=== PATIENT | female | born 1945 | race Caucasian/White ===

== ENCOUNTER → 2017-10-30 | Outpatient (CLI) | payer OTHER ==
[~2017-10-30] MED LIST: ALBU1NEB10 INH; ALBUAER2 INH; AMLH550 PO; AMR2 PO; ARC10 PO; ASPEC81 PO; ATV/1 PO; BUPRTAB51 PO; CETI10TA84 PO; CHOL100010 PO; CLB/200 PO; CLTP PO; COQ10100 PO; CYM60 PO; EZET10TA38 PO; FLNIN NAE; FLV400 PO; FRRG PO; GLC500 PO; HYDR-5688 PO; LAMO100T PO; LEVO150T22 PO; LISI20TA3 PO; MEMA1CAP3 PO; MULT-506 PO; NXM/40 PO; OMEG10007 PO; OXYSR10 PO; RANI300T2 PO; SNG10 PO; SYMIN160 INH; VITA400C15 PO; XNX25
--- NOTE | 2017-10-31 15:08 | MAMMOGRAPHY REPORT ---
BILATERAL DIGITAL SCREENING MAMMOGRAM TOMOSYNTHESIS WITH CAD: 10/30/2017 CLINICAL HISTORY: Routine screening. Patient has no complaints. TECHNIQUE: Breast tomosynthesis in addition to standard 2D mammography was performed. Current study was also evaluated with a Computer Aided Detection (CAD) system. COMPARISON: Comparison is made to exams dated: 08/31/2016 mammogram, 08/26/2014 mammogram, 3 mammogram, 08/21/2012 mammogram, 08/16/2011 mammogram - , and 03/31/2009. BREAST COMPOSITION: The tissue of both breasts is almost entirely fatty. FINDINGS: There are diffuse bilateral benign coarse, rim and round microcalcifications. A circumscri bed subcentimeter focal asymmetry in the 5:00 left breast appears similar dating back to 2007, theref ore likely benign. No new suspicious mass, architectural distortion or cluster of suspicious microca lcifications is seen. IMPRESSION: ACR BI-RADS CATEGORY 1: NEGATIVE There is no mammographic evidence of malignancy. A 1 year screening mammogram is recommended. The pa tient will receive written notification of the results. Approximately 10% of breast cancers are not detected with mammography. A negative mammographic report should not delay biopsy if a clinically suggestive mass is present. Marsha Retana M.D. ay/:10/30/2017 16:54:51 Date Pitter: Joyce Willson, letter sent: Normal 1/2 BI-RADS Code: ACR BI-RADS Category 1: Negative
== END | disposition home or self-care (01) ==
LOC: C.MAMM 10:02
PROVIDERS: ATTEND Obstetrics & Gynecology
DX: Z12.31 Encounter for screening mammogram for malignant neoplasm of breast (principal)

== ENCOUNTER 2017-11-09 15:09 | Inpatient (IN) | payer OTHER ==
[~2017-11-09] VITALS: Ht 147.3 cm; Wt 91.4 kg
[2017-11-09] MEDS ORDERED: SODIUM CHLORIDE 0.9% 1000ML 1,000 ML IV STA (15:22)
[2017-11-09] MEDS ORDERED: SODIUM CHLORIDE 0.9% 250ML 250 ML IV STA (15:22)
--- NOTE | 2017-11-09 15:39 | EMERGENCY ROOM VISIT NOTE ---
History Report prepared by Wendi: Yo Holt Under the Supervision of: Dr. Nyasia Ochoa M.D. First contact with patient: 15:17 Chief Complaint: WEAKNESS Stated Complaint: PROFOUND WEAKNESS, CHEST HEAVINESS History of Present Illness The patient is a 72 year old female who presents to the Emergency Room with complaints of worsening global weakness and fatigue that she began to notice 11 days prior to this visit. The patient states that she has a history of dementia and is having difficulty putting her situation into words. She notes that she was in bed all week last week. She has also been experiencing "heaviness" in her chest, and discomfort down her right arm. The chest "heaviness" began yesterday. She denies any nausea or bloody stools. She does have anemia at baseline and has been having some diarrhea. 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 A total of 10 systems reviewed and were otherwise negative. Past Medical & Surgical Medical Problems: (1) Anxiety (2) Asthma (3) Chest pain (4) Depression (5) Diabetes mellitus, type II (6) DJD of shoulder (7) Dyslipidemia (8) Fibromyalgia (9) GERD (gastroesophageal reflux disease) (10) Hypertension (11) Hypotension (12) Hypothyroidism (13) Rotator cuff arthropathy (14) Sleep apnea (15) Vascular dementia Surgical Problems: (1) H/O section (2) H/O colonoscopy (3) H/O esophagogastroduodenoscopy (4) History of rectal surgery (5) Sp lumbar spinal decompression (6) Status post bilateral knee replacements (7) Status post cholecystectomy (8) Status post hysterectomy (9) Status post tonsillectomy Family History Diabetes mellitus FH: cancer Stroke Social History Smoking Status: Never Smoker Marital Status: Housing Status: lives with family Occupation Status: retired Current/Historical Medications Scheduled Amiloride/Hctz (Amiloride/Hydrochlorothia 5-50 mg), 1 TAB PO DAILY Aspirin (Aspirin Ec), 81 MG PO DAILY Budesonide/Formoterol Fumarate (Symbicort 160/4.5 Inhaler ), 2 PUFFS INH BID Bupropion HCl (Bupropion HCl), 100 MG PO Q12 Calcium Carbonate-Vitamin D W/ (Caltrate 600+D Plus), 1 TAB PO BID Celecoxib (Celecoxib), 200 MG PO DAILY Cholecalciferol (Vitamin D 1000 Unit), 1,000 INTER.UNIT PO DAILY Duloxetine HCl (Duloxetine HCl), 30 MG PO DAILY Duloxetine HCl (Duloxetine HCl), 60 MG PO DAILY Esomeprazole Magnesium (Esomeprazole Magnesium), 40 MG PO DAILY Ezetimibe/Simvastatin (Vytorin 10MG/20MG), 1 TAB PO DAILY Fluticasone Propionate (Nasal) (Flonase Allergy Relief), 2 SPRAYS YUDY DAILY Folic Acid (Folic Acid), 1 TAB PO DAILY Lamotrigine (Lamictal), 150 MG PO DAILY Levothyroxine Sodium (Levothyroxine Sodium), 125 MCG PO DAILY Lisinopril (Lisinopril), 20 MG PO DAILY Memantine Hcl (Namenda Xr), 14 MG PO DAILY Metformin Hcl (Glucophage), 1,000 MG PO DAILY Montelukast Sod (Montelukast Sodium), 10 MG PO DAILY Multivitamins/Minerals (Mvi With Minerals), 1 TAB PO DAILY Ranitidine Hcl (Zantac), 300 MG PO BID Vitamin E (Vitamin E 400 Iu), 400 INTER.UNIT PO DAILY Scheduled PRN Alprazolam (Xanax), 0.5-1 TAB PO DAILY PRN for Anxiety Oxycodone HCl (Oxycodone HCl), 5 MG PO Q6 PRN for Pain [Proair], 2 PUFFS INH Q4 PRN for SOB/Wheezing Allergies Coded Allergies: Codeine (Verified Allergy, Unknown, STOMACH UPSET, 05/26/16) Doxycycline (Verified Allergy, Unknown, GASTRITIS, 05/26/16) Macrolides (Verified Allergy, Unknown, STOMach upset-CAN TAKE Z PACK PER PT, 05/26/16) Miconazole (Verified Allergy, Unknown, SEVERE BURNING ITCHING, 05/26/16) Morphine (Verified Adverse Reaction, Unknown, ITCHING, 05/26/16) Physical Exam Vital Signs Date Time Temp Pulse Resp B/P (MAP) Pulse Ox O2 Delivery O2 Flow Rate FiO2 11/09/17 17:15 97 Room Air 11/09/17 16:49 93/53 11/09/17 16:15 95 11/09/17 15:37 Room Air 11/09/17 15:29 96 112/90 107 118/60 108 88/66 11/09/17 15:12 36.5 104 22 121/62 97 Room Air Physical Exam Vital signs reviewed. General: Somewhat ill appearing, in no significant distress. HEENT: No scleral icterus, PERRLA, neck supple. Atraumatic. Cardiovascular: Tachycardic rate with normal rhythm, no extra sounds. Pulmonary: Clear to auscultation bilaterally, normal work of breathing. Abdomen: Soft, nontender, nondistended, positive bowel sounds. Musculoskeletal: Atraumatic, no peripheral edema. Neurologic: Patient awake alert and oriented x 3, full strength in all 4 extremities. Cranial nerves 2 through 12 grossly intact. Skin: Warm, dry, no rash Rectal: Reveals Guaiac negative brown stool. Medical Decision & Procedures ER Provider Diagnostic Interpretation: Radiology results as stated below per my review and radiologist interpretation: SINGLE VIEW CHEST CLINICAL HISTORY: Atypical chest pain. Weakness. FINDINGS: An AP, portable, upright chest radiograph is compared to study dated 05/08/2016 The examination is degraded by portable technique and patient rotation. The cardiomediastinal silhouette is unremarkable. The lungs and pleural spaces are clear. No pneumothorax is seen. The skeletal structures are osteopenic. The bony thorax is grossly intact. A right shoulder arthroplasty is in place. Degenerative change is noted throughout the thoracic spine. IMPRESSION: No acute cardiopulmonary abnormality. Electronically signed by: James Staley M.D. 11/09/2017 3:53 PM Dictated Date/Time: 11/09/2017 3:52 PM Laboratory Results 11/09/17 15:33 Red Blood Count 4.53, Mean Corpuscular Volume 77.3, Mean Corpuscular Hemoglobin 24.1, Mean Corpuscular Hemoglobin Concent 31.1, Mean Platelet Volume 8.9, Neutrophils (%) (Auto) 64.9, Lymphocytes (%) (Auto) 22.7, Monocytes (%) (Auto) 10.8, Eosinophils (%) (Auto) 0.9, Basophils (%) (Auto) 0.3, Neutrophils # (Auto ) 5.90, Lymphocytes # (Auto) 2.06, Monocytes # (Auto) 0.98, Eosinophils # (Auto ) 0.08, Basophils # (Auto) 0.03 11/09/17 15:33 Test 11/09/17 15:33 11/09/17 15:37 11/09/17 15:40 11/09/17 16:55 White Blood Count 9.09 K/uL (4.8-10.8) Red Blood Count 4.53 M/uL (4.2-5.4) Hemoglobin 10.9 g/dL (12.0-16.0) Hematocrit 35.0 % (37-47) Mean Corpuscular Volume 77.3 fL (80-100) Mean Corpuscular Hemoglobin 24.1 pg (25-34) Mean Corpuscular Hemoglobin Concent 31.1 g/dl (32-36) Platelet Count 267 K/uL (130-400) Mean Platelet Volume 8.9 fL (7.4-10.4) Neutrophils (%) (Auto) 64.9 % Lymphocytes (%) (Auto) 22.7 % Monocytes (%) (Auto) 10.8 % Eosinophils (%) (Auto) 0.9 % Basophils (%) (Auto) 0.3 % Neutrophils # (Auto) 5.90 K/uL (1.4-6.5) Lymphocytes # (Auto) 2.06 K/uL (1.2-3.4) Monocytes # (Auto) 0.98 K/uL (0.11-0.59) Eosinophils # (Auto) 0.08 K/uL (0-0.5) Basophils # (Auto) 0.03 K/uL (0-0.2) RDW Standard Deviation 49.7 fL (36.4-46.3) RDW Coefficient of Variation 17.6 % (11.5-14.5) Immature Granulocyte % (Auto) 0.4 % Immature Granulocyte # (Auto) 0.04 K/uL (0.00-0.02) Microcytosis PRESENT Est Creatinine Clear Calc Drug Dose 46.9 ml/min Estimated GFR () 61.6 Estimated GFR (Non- 53.2 BUN/Creatinine Ratio 15.9 (10-20) Calcium Level 9.6 mg/dl (8.5-10.1) Magnesium Level 1.6 mg/dl (1.8-2.4) Total Bilirubin 0.4 mg/dl (0.2-1) Direct Bilirubin 0.1 mg/dl (0-0.2) Aspartate Amino Transf (AST/SGOT) 17 U/L (15-37) Alanine Aminotransferase (ALT/SGPT) 24 U/L (12-78) Alkaline Phosphatase 38 U/L (45-117) Total Creatine Kinase 83 U/L (26-192) Creatine Kinase MB 1.5 ng/ml (0.5-3.6) Creatine Kinase MB Ratio 1.8 (0-3.0) Total Protein 7.3 gm/dl (6.4-8.2) Albumin 3.9 gm/dl (3.4-5.0) Bedside Troponin I < 0.030 ng/ml (0-0.045) Bedside Hemoglobin 11.9 g/dl (12.0-16.0) Bedside Hematocrit 35 % (37-47) Bedside Sodium 135 mEq/L (135-144) Bedside Potassium 4.2 mEq/L (3.3-5.0) Bedside Chloride 95 mEq/L (101-112) Bedside Total CO2 24 mEq/l (24-31) Anion Gap 21.0 mmol/L (16-25) Bedside Blood Urea Nitrogen 17 mg/dl (7-18) Bedside Creatinine 1.1 mg/dl (0.6-1.3) Bedside Glucose (other) 93 mg/dl (70-99) Bedside Ionized Calcium ([place]) 1.26 mmol/l (1.12-1.32) Urine Color DK YELLOW Urine Appearance CLEAR (CLEAR) Urine pH 5.5 (4.5-7.5) Urine Specific [place] 1.029 (1.000-1.030) Urine Protein NEG (NEG) Urine Glucose (UA) NEG (NEG) Urine Ketones TRACE (NEG) Urine Occult Blood NEG (NEG) Urine Nitrite NEG (NEG) Urine Bilirubin NEG (NEG) Urine Urobilinogen NEG (NEG) Urine Leukocyte Esterase NEG (NEG) Test 11/09/17 17:11 Laboratory results per my review. Medications Administered Medications (Trade) Dose Ordered Sig/Tung Route Start Time Stop Time Status Last Admin Dose Admin Sodium Chloride 250 ml @ 999 mls/hr Q16M STAT IV 11/09/17 15:22 11/09/17 15:50 DC 11/09/17 15:36 999 MLS/HR Sodium Chloride 1,000 ml @ 125 mls/hr Q8H STAT IV 11/09/17 15:22 11/09/17 23:21 11/09/17 15:36 125 MLS/HR Sodium Chloride 500 ml @ 999 mls/hr Q31M STAT IV 11/09/17 15:49 11/09/17 16:19 DC 11/09/17 15:58 999 MLS/HR Sodium Chloride 500 ml @ 999 mls/hr Q31M STAT IV 11/09/17 16:45 11/09/17 17:15 DC 11/09/17 16:52 999 MLS/HR ECG Indication: weakness Rate (beats per minute): 95 Rhythm: normal sinus Findings: no acute ischemic change, no ectopy, other (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 ED Course 1520: Past medical records reviewed. The patient was evaluated in room B12B. A complete history and physical examination was performed. 1522: Ordered Sodium Chloride 1000 mL @ 125 mL/hr IV, Sodium Chloride 250 mL @ 999 mL/hr IV. 1549: Ordered Sodium Chloride 500 mL @ 999 mL/hr IV. 1642: I checked on the patient at this time. She remains orthostatic after 0.5 liters. I performed a rectal exam. See PE for findings. The patient wishes to stay as an inpatient. I will call the [facility] Hospitalist. 1645: Ordered Sodium Chloride 500 mL @ 999 mL/hr IV. 1701: I reviewed the patient's case with Monica Browning PA-C. She will evaluate the patient for further management. Medical Decision Differential diagnosis: Etiologies such as metabolic, infection, hypo/hyperglycemia, electrolyte abnormalities, cardiac sources, intracerebral event, toxicologic, neurologic, as well as others were entertained. This patient was evaluated and appeared to be in no significant distress. Physical examination reveals a pale appearance, tachycardia and orthostasis. IV access was obtained and the patient was hydrated with 500 mL of normal saline solution. EKG reveals no evidence of acute ischemia or ectopy. The patient was reevaluated after the 500 mL bolus and found to be persistently orthostatic. A rectal exam was performed and reveals guaiac negative brown stool. The patient does have a history of chronic anemia. UA was obtained and is negative for infection. With the patient's profound weakness, symptomatic orthostasis and chest heaviness, the patient will be evaluated by the hospitalist service for further management. Consults Time Called: 1557 Consulting Physician: Monica Browning PA-C Returned Call: [phone] I reviewed the patient's case with Monica Browning PA-C. She will evaluate the patient for further management. Impression Primary Impression: Orthostasis Scribe Attestation The scribe's documentation has been prepared under my direction and personally reviewed by me in its entirety. I confirm that the note above accurately reflects all work, treatment, procedures, and medical decision making performed by me. Departure Information Dispostion Being Evaluated By Hospitalist Referrals Papo Keyes M.D. (PCP) Patient Instructions My [facility]
[2017-11-09 15:44] LABS: HEMOGLOBIN 10.9 g/dL (12.0-16.0); MEAN CELL VOLUME 77.3 fL (80-100); MEAN CORPUSCULAR HEMOGLOBIN 24.1 pg (25-34); MEAN CORPUSCULAR HGB CONC 31.1 g/dl (32-36); MEAN PLATELET VOLUME 8.9 fL (7.4-10.4); PLATELET COUNT 267 K/uL (130-400); RED CELL DISTRIBUTION WIDTH CV 17.6 % (11.5-14.5); RED CELL DISTRIBUTION WIDTH SD 49.7 fL (36.4-46.3); WHITE BLOOD COUNT 9.09 K/uL (4.8-10.8)
[2017-11-09] MEDS ORDERED: SODIUM CHLORIDE 0.9% 500ML 500 ML IV STA ×2 (15:49→16:45)
[2017-11-09 15:53] LABS: ISTAT CREATININE 1.1 mg/dl (0.6-1.3); ISTAT IONIZED CALCIUM 1.26 mmol/l (1.12-1.32); ISTAT POTASSIUM 4.2 mEq/L (3.3-5.0)
--- NOTE | 2017-11-09 15:55 | DIAGNOSTIC IMAGING REPORT ---
SINGLE VIEW CHEST CLINICAL HISTORY: Atypical chest pain. Weakness. FINDINGS: An AP, portable, upright chest radiograph is compared to study dated 05/08/2016 The examination is degraded by portable technique and patient rotation. The cardiomediastinal silhouette is unremarkable. The lungs and pleural spaces are clear. No pneumothorax is seen. The skeletal structures are osteopenic. The bony thorax is grossly intact. A right shoulder arthroplasty is in place. Degenerative change is noted throughout the thoracic spine. IMPRESSION: No acute cardiopulmonary abnormality. Electronically signed by: James Staley M.D. 11/09/2017 3:53 PM Dictated Date/Time: 11/09/2017 3:52 PM
[2017-11-09 16:06] LABS: ALBUMIN 3.9 gm/dl (3.4-5.0); CALCIUM 9.6 mg/dl (8.5-10.1); CREATININE 1.06 mg/dl (0.60-1.20); POTASSIUM 4.1 mmol/L (3.5-5.1)
[2017-11-09 16:10] LABS: BASO % 0.3 %; BASO ABS # 0.03 K/uL (0-0.2); EOS % 0.9 %; EOS ABS # 0.08 K/uL (0-0.5); IG# 0.04 K/uL (0.00-0.02); LYMPH % 22.7 %; LYMPH ABS # 2.06 K/uL (1.2-3.4); MONO % 10.8 %; MONO ABS # 0.98 K/uL (0.11-0.59); NEUT % 64.9 %
[2017-11-09 16:12] LABS: CKMB 1.5 ng/ml (0.5-3.6); TOTAL PROTEIN 7.3 gm/dl (6.4-8.2)
[2017-11-09] MEDS ORDERED: LSN20 PO (16:19)
[2017-11-09] MEDS ORDERED: RANI300T PO (16:19)
[2017-11-09] MEDS ORDERED: PROAIR INH (16:19)
[2017-11-09] MEDS ORDERED: AMLH/550 PO (16:19)
[2017-11-09] MEDS ORDERED: CHOL100027 PO (16:19)
[2017-11-09] MEDS ORDERED: FOLI800T PO (16:19)
[2017-11-09] MEDS ORDERED: MEMA1CAP3 PO (16:19)
[2017-11-09] MEDS ORDERED: CYM60 PO (16:19)
[2017-11-09] MEDS ORDERED: CELE1CAP30 PO (16:19)
[2017-11-09] MEDS ORDERED: CALCCHW PO (16:19)
[2017-11-09] MEDS ORDERED: LEVO125T5 PO (16:19)
[2017-11-09] MEDS ORDERED: CYM30 PO (16:19)
[2017-11-09] MEDS ORDERED: EZET10TA38 PO (16:19)
[2017-11-09] MEDS ORDERED: LAMO150T PO (16:19)
[2017-11-09] MEDS ORDERED: FLUT0.15 NAE (16:19)
[2017-11-09] MEDS ORDERED: WLL100 PO (16:19)
[2017-11-09] MEDS ORDERED: ASPI81TA28 PO (16:19)
[2017-11-09] MEDS ORDERED: ALPR0.25 PO (16:19)
[2017-11-09] MEDS ORDERED: METF-384 PO (16:19)
[2017-11-09] MEDS ORDERED: ESOM1CAP34 PO (16:19)
[2017-11-09] MEDS ORDERED: VITA400C3 PO (16:19)
[2017-11-09] MEDS ORDERED: SYMIN160 INH (16:19)
[2017-11-09] MEDS ORDERED: SNG10 PO (16:19)
[2017-11-09] MEDS ORDERED: OXYC-609 PO (16:19)
[2017-11-09] MEDS ORDERED: MULT-513 PO (16:19)
[2017-11-09 17:15] VITALS: O2SAT 97; Ht 147.3 cm; Wt 91.4 kg
[2017-11-09] MEDS ORDERED: MAGNESIUM SULFATE 1GM / D5W 2 GM in PREMIXED IN D5W 100 ML IV STA (17:22)
[2017-11-09] MEDS ORDERED: MAGNESIUM HYDROXIDE SUSP 30 ML UDC PO PRN (17:30)
[2017-11-09] MEDS ORDERED: NITROGLYCERIN 0.4 MG SL PER TAB CHARGE SL PRN (17:30)
[2017-11-09] MEDS ORDERED: ONDANSETRON INJ 2 MG/ML 2 ML VIAL IV PRN (17:30)
[2017-11-09] MEDS ORDERED: POLYETHYLENE (MIRALAX) 17 GM PACK PO PRN (17:30)
[2017-11-09] MEDS ORDERED: ALUMINUM/MAGNESIUM/SIMETH (MAALOX MAX) 30 ML UDC PO PRN (17:30)
[2017-11-09] MEDS ORDERED: GLUCOSE 40% GEL 15 GM TUBE PO PRN ×2 (17:45→21:45)
[2017-11-09] MEDS ORDERED: DEXTROSE 50% 50 ML SYR IV PRN ×2 (17:45→21:45)
[2017-11-09] MEDS ORDERED: GLUCOSE 10 TABS/TUBE PO PRN ×2 (17:45→21:45)
[2017-11-09] MEDS ORDERED: ALPRAZOLAM 0.5 MG TAB PO PRN (17:45)
[2017-11-09] MEDS ORDERED: OXYCODONE HCL IR 5 MG TAB (IMMEDIATE RELEASE) PO PRN (17:45)
[2017-11-09] MEDS ORDERED: GLUCAGON FOR INJ 1 MG VIAL SQ PRN ×2 (17:45→21:45)
[2017-11-09] MEDS ORDERED: ALBUTEROL HFA 8 GM INHALER INH PRN (17:45)
[2017-11-09] MEDS ORDERED: MAGNESIUM SULFATE 1GM / D5W 1 GM BAG ONE (17:57)
[2017-11-09] MEDS ORDERED: CETI10TA84 PO (18:10)
[2017-11-09] MEDS ORDERED: DONE10TA12 PO (18:10)
--- NOTE | 2017-11-09 18:30 | DIAGNOSTIC IMAGING REPORT ---
HEAD CT NONCONTRAST CT DOSE: 537.48 mGy.cm HISTORY: Imbalance, weakness TECHNIQUE: Multiaxial CT images of the head were performed without the use of intravenous contrast. Automated exposure control was utilized for this study. A dose lowering technique was utilized adhering to the principles of ALARA. Comparison: Head CT 08/02/2014. Findings: The paranasal sinuses and mastoid air cells are clear. The calvarium and skull base are intact. There is no mass, hematoma, midline shift, acute infarct. White matter hypodensity is nonspecific but suggestive of microvascular ischemic change. The ventricles and sulci demonstrate mild age-related involutional changes. Impression: No acute intracranial abnormality. Atrophy and microvascular ischemic changes. Electronically signed by: Caden Lindsey M.D. 11/09/2017 6:29 PM Dictated Date/Time: 11/09/2017 6:22 PM
[2017-11-09 18:50] LABS: INFLUENZA B ANTIGEN Neg for Influ B (NEG)
[2017-11-09 18:57] VITALS: O2SAT 98
[2017-11-09] MEDS ORDERED: SODIUM CHLORIDE 0.9% 1000ML 1,000 ML IV SCH (20:00)
[2017-11-09] MEDS ORDERED: DONEPEZIL HCL 10 MG TAB PO SCH (21:00)
[2017-11-09] MEDS ORDERED: INSULIN ASPART 100 UNITS/ML 3 ML PEN SC SCH (21:00)
[2017-11-09] MEDS: BUDESONIDE/FORMOTEROL FUMARATE 160/4.5 60 PUFFS/INHALER INH SCH (21:00)
[2017-11-09] MEDS ORDERED: CETIRIZINE HCL 10 MG TAB PO SCH (21:00)
[2017-11-09] MEDS ORDERED: DULOXETINE (CYMBALTA) 30 MG CAP PO SCH (21:00)
[2017-11-09] MEDS: CALCIUM 600MG + VIT D 400 IU TAB PO SCH (21:01)
[2017-11-09] MEDS: RANITIDINE HCL 150 MG TAB PO SCH (21:01)
[2017-11-09] MEDS: ACETAMINOPHEN 325 MG TAB PO PRN (21:10)
--- NOTE | 2017-11-09 21:26 | History and Physical ---
History & Physical Date & Time of Service: Nov 09, 2017 at 18:00 Chief Complaint: Chest Pain, Hypotension Primary Care Physician: Papo Keyes M.D. History of Present Illness Source: patient, clinic records, hospital records This is a 72yo F with a PMH of DM II, HTN, HLD, multi-infarct dementia, anxiety , depression, hypothyroidism, asthma and other medical problems who presents with generalized weakness x 10 days. Last week, patient started to experience body aches, a headache and a low grade temperature. Denies having chills, sore throat, nasal congestion. [place] nauseous and was therefore eating and drinking significantly less than normal. Spent most of her time in bed. Yesterday, patient tried to do some cleaning and felt lightheaded and dizzy, with generalized weakness and feeling "wobbly" with ambulation. Also endorses some heaviness across her chest that went away once she rested. Denies any syncope, visual changes, confusion, SOB, vomiting, dysuria, diarrhea or LE swelling. Has been taking all medications regularly, including BP meds and diuretic. Does have anemia at baseline (hgb ~ 11). Has a history of multi-infarct dementia but states that mentation is at baseline currently. Patient was hypotensive with BP of 88/66 upon arrival. + orthostatics. Past Medical/Surgical History Medical Problems: (1) Anxiety Status: Chronic (2) Asthma Status: Chronic (3) Depression Status: Chronic (4) Diabetes mellitus, type II Status: Chronic (5) DJD of shoulder Status: Chronic (6) Dyslipidemia Status: Chronic (7) Fibromyalgia Status: Chronic (8) GERD (gastroesophageal reflux disease) Status: Chronic (9) Hypertension Status: Chronic (10) Hypothyroidism Status: Chronic (11) Lumbar stenosis with neurogenic claudication Status: Chronic (12) Rotator cuff arthropathy Status: Chronic (13) Sleep apnea Status: Chronic (14) Vascular dementia Status: Chronic Surgical Problems: (1) H/O section Status: Chronic (2) H/O colonoscopy Status: Chronic (3) H/O esophagogastroduodenoscopy Status: Chronic (4) History of rectal surgery Status: Chronic (5) Sp lumbar spinal decompression Status: Chronic (6) Status post bilateral knee replacements Status: Chronic (7) Status post cholecystectomy Status: Chronic (8) Status post hysterectomy Status: Chronic (9) Status post tonsillectomy Status: Chronic Family History Diabetes mellitus FH: cancer Stroke Social History Smoking Status: Never Smoker Marital Status: Housing status: lives with family Occupational Status: retired Immunizations History of Influenza Vaccine: Yes Influenza Vaccine Date: Aug 25, 2013 History of Tetanus Vaccine?: Yes Tetanus Immunization Date: Oct 25, 2000 History of Pneumococcal: Yes Pneumococcal Date: Sep 05, 2009 History of Hepatitis B Vaccine: Yes Hepatitis Immunization Date: Oct 25, 2005 Multi-Drug Resistant Organisms History of MDRO: No Allergies Coded Allergies: Codeine (Verified Allergy, Unknown, STOMACH UPSET, 05/26/16) Doxycycline (Verified Allergy, Unknown, GASTRITIS, 05/26/16) Macrolides (Verified Allergy, Unknown, STOMach upset-CAN TAKE Z PACK PER PT, 05/26/16) Miconazole (Verified Allergy, Unknown, SEVERE BURNING ITCHING, 05/26/16) Morphine (Verified Adverse Reaction, Unknown, ITCHING, 05/26/16) Home Medications Scheduled Amiloride/Hctz (Amiloride/Hydrochlorothia 5-50 mg), 1 TAB PO DAILY Aspirin (Aspirin Ec), 81 MG PO DAILY Budesonide/Formoterol Fumarate (Symbicort 160/4.5 Inhaler ), 2 PUFFS INH BID Bupropion HCl (Bupropion HCl), 100 MG PO Q12 Calcium Carbonate-Vitamin D W/ (Caltrate 600+D Plus), 1 TAB PO BID Celecoxib (Celecoxib), 200 MG PO DAILY Cholecalciferol (Vitamin D 1000 Unit), 1,000 INTER.UNIT PO DAILY Donepezil Hydrochloride (Aricept), 1 TAB PO HS Duloxetine HCl (Duloxetine HCl), 30 MG PO HS Duloxetine HCl (Duloxetine HCl), 60 MG PO DAILY Esomeprazole Magnesium (Esomeprazole Magnesium), 40 MG PO DAILY Ezetimibe/Simvastatin (Vytorin 10MG/20MG), 1 TAB PO DAILY Fluticasone Propionate (Nasal) (Flonase Allergy Relief), 2 SPRAYS YUDY DAILY Folic Acid (Folic Acid), 1 TAB PO DAILY Lamotrigine (Lamictal), 150 MG PO DAILY Levothyroxine Sodium (Synthroid), 100 MCG PO DAILYBB Lisinopril (Lisinopril), 20 MG PO DAILY Memantine Hcl (Namenda Xr), 14 MG PO DAILY Metformin Hcl (Glucophage), 1,000 MG PO BID Montelukast Sod (Montelukast Sodium), 10 MG PO DAILY Multivitamins/Minerals (Mvi With Minerals), 1 TAB PO DAILY Ranitidine Hcl (Zantac), 300 MG PO BID Vitamin E (Vitamin E 400 Iu), 400 INTER.UNIT PO DAILY Scheduled PRN Alprazolam (Xanax), 0.5-1 TAB PO DAILY PRN for Anxiety Oxycodone HCl (Oxycodone HCl), 5 MG PO Q6 PRN for Pain [Proair], 2 PUFFS INH Q4 PRN for SOB/Wheezing Review of Systems Ten systems reviewed and negative except as noted in the HPI. Physical Exam Vital Signs Date Time Temp Pulse Resp B/P (MAP) Pulse Ox O2 Delivery O2 Flow Rate FiO2 11/09/17 18:57 89 17 98 11/09/17 18:07 93 17 123/75 100 11/09/17 17:15 97 Room Air 11/09/17 16:49 93/53 11/09/17 16:15 95 11/09/17 15:37 Room Air 11/09/17 15:29 96 112/90 107 118/60 108 88/66 11/09/17 15:12 36.5 104 22 121/62 97 Room Air General Appearance: WD/WN, no apparent distress, + obese, + pertinent finding ( pale, resting comfortably) Head: normocephalic, atraumatic Eyes: normal inspection, PERRL, sclerae normal ENT: normal ENT inspection, hearing grossly normal, pharynx normal (dry mucous membranes) Neck: supple, thyroid normal, trachea midline Respiratory/Chest: chest non-tender, lungs clear, normal breath sounds, no respiratory distress, no accessory muscle use Cardiovascular: regular rate, rhythm, no murmur, normal peripheral pulses Abdomen/GI: non tender, soft, no organomegaly Back: normal inspection Extremities/Musculoskelatal: normal inspection, no calf tenderness, no pedal edema Neurologic/Psych: teacher of the emotionally disturbed II-XII nml as tested, no motor/sensory deficits (FAROM, SAMIRA 5/5 in all 4 extremities. Cerebellar tests normal. Gait normal. ), alert, normal mood/affect, oriented x 3 Skin: normal color, warm/dry Diagnostics Laboratory Results Results Past 24 Hours Test 11/09/17 15:33 11/09/17 15:37 11/09/17 15:40 11/09/17 16:55 Range/Units White Blood Count 9.09 4.8-10.8 K/uL Red Blood Count 4.53 4.2-5.4 M/uL Hemoglobin 10.9 12.0-16.0 g/dL Hematocrit 35.0 37-47 % Mean Corpuscular Volume 77.3 80-100 fL Mean Corpuscular Hemoglobin 24.1 25-34 pg Mean Corpuscular Hemoglobin Concent 31.1 32-36 g/dl Platelet Count 267 130-400 K/uL Mean Platelet Volume 8.9 7.4-10.4 fL Neutrophils (%) (Auto) 64.9 % Lymphocytes (%) (Auto) 22.7 % Monocytes (%) (Auto) 10.8 % Eosinophils (%) (Auto) 0.9 % Basophils (%) (Auto) 0.3 % Neutrophils # (Auto) 5.90 1.4-6.5 K/uL Lymphocytes # (Auto) 2.06 1.2-3.4 K/uL Monocytes # (Auto) 0.98 0.11-0.59 K/uL Eosinophils # (Auto) 0.08 0-0.5 K/uL Basophils # (Auto) 0.03 0-0.2 K/uL RDW Standard Deviation 49.7 36.4-46.3 fL RDW Coefficient of Variation 17.6 11.5-14.5 % Immature Granulocyte % (Auto) 0.4 % Immature Granulocyte # (Auto) 0.04 0.00-0.02 K/uL Microcytosis PRESENT Prothrombin Time 10.4 9.0-12.0 SECONDS Prothromb Time International Ratio 1.0 0.9-1.1 Sodium Level 132 136-145 mmol/L Potassium Level 4.1 3.5-5.1 mmol/L Chloride Level 98 98-107 mmol/L Carbon Dioxide Level 28 21-32 mmol/L Anion Gap 6.0 21.0 16-25 mmol/L Blood Urea Nitrogen 17 7-18 mg/dl Creatinine 1.06 0.60-1.20 mg/dl Est Creatinine Clear Calc Drug Dose 46.9 ml/min Estimated GFR () 61.6 Estimated GFR (Non- 53.2 BUN/Creatinine Ratio 15.9 10-20 Random Glucose 88 70-99 mg/dl Calcium Level 9.6 8.5-10.1 mg/dl Magnesium Level 1.6 1.8-2.4 mg/dl Total Bilirubin 0.4 0.2-1 mg/dl Direct Bilirubin 0.1 0-0.2 mg/dl Aspartate Amino Transf (AST/SGOT) 17 15-37 U/L Alanine Aminotransferase (ALT/SGPT) 24 12-78 U/L Alkaline Phosphatase 38 45-117 U/L Total Creatine Kinase 83 26-192 U/L Creatine Kinase MB 1.5 0.5-3.6 ng/ml Creatine Kinase MB Ratio 1.8 0-3.0 Total Protein 7.3 6.4-8.2 gm/dl Albumin 3.9 3.4-5.0 gm/dl Thyroid Stimulating Hormone (TSH) 0.287 0.300-4.500 uIu/ml Bedside Troponin I < 0.030 0-0.045 ng/ml Bedside Hemoglobin 11.9 12.0-16.0 g/dl Bedside Hematocrit 35 37-47 % Bedside Sodium 135 135-144 mEq/L Bedside Potassium 4.2 3.3-5.0 mEq/L Bedside Chloride 95 101-112 mEq/L Bedside Total CO2 24 24-31 mEq/l Bedside Blood Urea Nitrogen 17 7-18 mg/dl Bedside Creatinine 1.1 0.6-1.3 mg/dl Bedside Glucose (other) 93 70-99 mg/dl Bedside Ionized Calcium (Kelsey) 1.26 1.12-1.32 mmol/l Urine Color DK YELLOW Urine Appearance CLEAR CLEAR Urine pH 5.5 4.5-7.5 Urine Specific [place] 1.029 1.000-1.030 Urine Protein NEG NEG Urine Glucose (UA) NEG NEG Urine Ketones TRACE NEG Urine Occult Blood NEG NEG Urine Nitrite NEG NEG Urine Bilirubin NEG NEG Urine Urobilinogen NEG NEG Urine Leukocyte Esterase NEG NEG Test 11/09/17 17:45 11/09/17 20:05 Range/Units Influenza Type A Antigen Neg for Influ A NEG Influenza Type B Antigen Neg for Influ B NEG Bedside Glucose 123 70-90 mg/dl Diagnostic Radiology CT head: Impression: No acute intracranial abnormality. Atrophy and microvascular ischemic changes. CXR normal EKG NSR. Remote anterior infarct. No change from prior EKG Impression Assessment and Plan This is a 72yo F with a PMH of DM II, HTN, HLD, multi-infarct dementia, anxiety , depression, hypothyroidism, asthma and other medical problems who presents with generalized weakness x 10 days. Orthostatic hypotension: -Lightheaded, dizzy, generalized weakness - + orthostasis on exam, dry mucous membranes -Poor PO intake over the past 10 days 2/2 viral illness -On multiple BP medications as well as a diuretic -Hold home dose amiloride-hctz, lisinopril -Make appropriate home med adjustments prior to discharge -IVF resuscitation -Orthostatics -PT/OT evals -Monitor Chest discomfort: -In setting of dehydration, exertion -Stable angina, resolved with rest -No longer having any chest discomfort -CXR, EKG and troponin without abnormalities -Trend troponin -Echo DM II: -Hgb a1c of 5.9 in Jun 2017 -Hold home regimen -SSI while in-patient -BG checks AC HS Multi-infarct dementia: -CT head with no acute intracranial abnormality. Atrophy and microvascular ischemic changes. -Seems to be at mentation baseline -Cont home dose Namenda, Aricept Depression/anxiety: -Stable -Cont cymbalta, wellbutrin, xanax PRN Hypothyroidism: -TSH low at 0.287 -Decreased levothyroxine dose from 125mcg to 100mcg -Free T4 ordered -Follow up for thyroid studies out-patient Asthma: -Stable -Cont home inhalers, Singulair HLD: -Cont Vytorin Chronic back pain, OA: -Cont home oxycodone IR per pain agreement -Celebrex held DVT Ppx: SQ heparin Code status: FULL PCP: Wali Dispo: Admitted to telemetry. Discharge planning ordered. Will need a home health nurse for home BP checks. Patient seen in collaboration with Dr. Wade. Please see addendum. ATTENDING ADDENDUM : pt seen and examined ,care co ordniated with Monica Kramer 72 yo F presents with Dizzy spell , orthostatic hypotension hx of poor Po intake , weakness for > 1 week has been taking her meds which includes 3 potent diuretics no report of fever or chills, pt is a poor historian due to early dementia does not recall all the events, remembers she vomited yesterday , and had episodes of diarrhea last week pt given IV fluid bolus in ER will continued IV hydration hold all diuretics no source of infection noted -Cxray no infiltrate , UA negative orthostatic vital check q shift PT/OT eval social service consulted , pt will benefit with home health nurse visit please refer to documentation of Monica Daigle for further discussion of other issues Anna Wade MD Advanced Directives Existing Living Will: Yes Existing Power of Automobile Assembler: Yes Resuscitation Status FULL RESUSCITATION VTE Prophylaxis VTE Risk Assessment Done? Y/N: Yes Risk Level: Moderate Given or contraindicated: Unfractionated heparin SQ Additional Copies To Papo Keyes M.D.
[2017-11-09] MEDS: HEPARIN SOD 5000 UNIT/0.5 ML CARP SQ SCH (21:36)
[2017-11-09 23:22] VITALS: BP 126/72; PULSE 86; TEMP 36.7; O2SAT 97
[2017-11-10 03:48] VITALS: BP 123/74; PULSE 78; TEMP 36.8; O2SAT 98
[2017-11-10] MEDS ORDERED: LEVOTHYROXINE 125 MCG TAB PO SCH (06:00)
[2017-11-10] MEDS ORDERED: LEVOTHYROXINE 100 MCG TAB PO SCH (06:00)
[2017-11-10 06:21] LABS: BLOOD UREA NITROGEN 12 mg/dl (7-18); CALCIUM 8.7 mg/dl (8.5-10.1); CARBON DIOXIDE 28 mmol/L (21-32); CREATININE 0.83 mg/dl (0.60-1.20); GLUCOSE 108 mg/dl (70-99); POTASSIUM 4.7 mmol/L (3.5-5.1); SODIUM 134 mmol/L (136-145)
[2017-11-10] MEDS: HEPARIN SOD 5000 UNIT/0.5 ML CARP SQ SCH (06:22)
[2017-11-10 06:25] LABS: CHOLESTEROL 120 mg/dl (0-200); LDL CHOLESTEROL CALCULATED 17 mg/dl
[2017-11-10 06:27] LABS: HEMOGLOBIN A1C 6.5 % (4.5-5.6)
[2017-11-10 07:42] VITALS: BP 134/65; PULSE 89; TEMP 36.6; O2SAT 96
[2017-11-10] MEDS ORDERED: PERFLUTREN LIPID MICROSPHERE (DEFINITY) IV ONE (07:54)
[2017-11-10] MEDS: ACETAMINOPHEN 325 MG TAB PO PRN (08:02)
[2017-11-10] MEDS: INSULIN ASPART 100 UNITS/ML 3 ML PEN SC SCH ×2 (08:15→12:25)
[2017-11-10] MEDS: BUDESONIDE/FORMOTEROL FUMARATE 160/4.5 60 PUFFS/INHALER INH SCH (08:30)
[2017-11-10] MEDS: CALCIUM 600MG + VIT D 400 IU TAB PO SCH (08:32)
[2017-11-10] MEDS: RANITIDINE HCL 150 MG TAB PO SCH (08:33)
[2017-11-10] MEDS ORDERED: PANTOprazole SOD 40 MG TAB PO SCH (09:00)
[2017-11-10] MEDS ORDERED: MONTELUKAST SOD 10 MG TAB PO SCH (09:00)
[2017-11-10] MEDS ORDERED: FoLIC ACID TAB 400 MCG TAB PO SCH (09:00)
[2017-11-10] MEDS ORDERED: DULOXETINE HCL 60 MG CAP PO SCH (09:00)
[2017-11-10] MEDS ORDERED: TOCOPHERYL, DL-ALPHA 400 INTER.UNIT CAP PO SCH (09:00)
[2017-11-10] MEDS ORDERED: DULOXETINE (CYMBALTA) 30 MG CAP PO SCH (09:00)
[2017-11-10] MEDS ORDERED: EZETIMIBE/SIMVASTATIN 10/20 TAB PO SCH (09:00)
[2017-11-10] MEDS ORDERED: FLUTICASONE PROPIONATE NA SPR 16 GM BTL NAE SCH (09:00)
[2017-11-10] MEDS ORDERED: CHOLECALCIFEROL 1000 INTER.UNIT TAB PO SCH (09:00)
[2017-11-10] MEDS ORDERED: ASPIRIN 81 MG ECTAB PO SCH ×2 (09:00)
[2017-11-10] MEDS ORDERED: CEROVITE ADV FORMULA TAB PO SCH (09:00)
--- NOTE | 2017-11-10 09:00 | ECHOCARDIOGRAM REPORT ---
*NOTICE TO RECEIVING [employer] This information is strictly Confidential and protected under [place] law. [place] law prohibits you from making any further disclosure of this information unless further disclosure is expressly permitted by the written consent of the person to whom it pertains or is authorized by law. A general authorization for the release of medical or other information is not sufficient for this purpose. Hospital accepts no responsibility if the information is made available to any other person, INCLUDING THE PATIENT. Interpretation Summary * Name: JESSICA VASQUEZ Study Date: 11/10/2017 07:18 AM BP: 123/74 mmHg * Patient Location: C.2T\S\S238\S\2 HR: 78 * : 1945 (M/d/yyy) Gender: Female Height: 59 in * Age: 72 yrs Ethnicity: [place] Weight: 196 lb * Ordering Physician: Anna Wade * Referring Physician: Self, Referred * Performed By: Thania Menchaca RDCS * * Reason For Study: Chest Pain * BSA: 1.8 m2 * The study was technically limited. * Grossly normal valvular structure and function. * -- Conclusions -- * The study was technically limited. * The left ventricle is normal in size. * Ejection Fraction = 60-65%. * The right ventricular systolic function is normal. * Grossly normal valvular structure and function. Procedure Details * A complete two-dimensional transthoracic echocardiogram was performed (2D, M-mode, Doppler and color flow Doppler). * The study was technically difficult. * The study was technically difficult, but visualization was adequate with the administration of Definity ultrasound contrast. * There were technical limitations due to patient'sbody habitus * A contrast injection of Definity was performed to improve assessment of LV function. * Contrast was injected into an intravenous site in the left arm. * One vial of Definity ultrasound contrast was diluted in normal saline to a total volume of 10 ml. A total of '2' ml of solution was administered during imaging. * Lot # [id number] of Definity utilized for procedure. * Expiration date . * The attending nurse who injected the contrast agent was Lian Velarde RN. Left Ventricle * The left ventricle is normal in size. * There is normal left ventricular wall thickness. * Ejection Fraction = 60-65%. * Left ventricular systolic function is normal. * The left ventricular wall motion is normal. Right Ventricle * The right ventricle is grossly normal size. * The right ventricular systolic function is normal. Atria * The left atrial size is normal. * Right atrial size is normal. * There is no evidence of atrial septal defect, but resolution does not allow assessment for a patent foramen ovale. Mitral Valve * The mitral valve is not well visualized. * Significant mitral regurgitation is absent. Tricuspid Valve * The tricuspid valve is not well visualized. * Significant tricuspid regurgitation is absent. Aortic Valve * The aortic valve is not well visualized. * Aortic valve sclerosis mild, without significant aortic valvular stenosis. * There is no significant aortic regurgitation. Pulmonic Valve * The pulmonic valve is not well visualized. * There is no significant pulmonary regurgitation. Pericardium/Pleural * There is no pericardial effusion. MMode 2D Measurements and Calculations IVSd 1.1 cm IVSs 1.3 cm LVIDd 4.2 cm LVIDs 2.5 cm LVPWd 1.1 cm LVPWs 1.0 cm IVS/LVPW 0.97 FS 39.9 % EDV(Teich) 79.8 ml ESV(Teich) 23.2 ml EF(Teich) 70.9 % EDV(cubed) 75.5 ml ESV(cubed) 16.4 ml EF(cubed) 78.3 % % IVS thick 23.2 % % LVPW thick -4.98 % LV mass(C)d 155.3 grams LV mass(C)dI 84.9 grams/m\S\2 LV mass(C)s 84.8 grams LV mass(C)sI 46.4 grams/m\S\2 SV(Teich) 56.5 ml SI(Teich) 30.9 ml/m\S\2 SV(cubed) 59.1 ml SI(cubed) 32.3 ml/m\S\2 Ao root diam 2.9 cm Ao root area 6.7 cm\S\2 ACS 1.8 cm LA dimension 3.3 cm LA/Ao 1.1 LVAd ap4 30.4 cm\S\2 LVLd ap4 8.6 cm EDV(MOD-sp4) 89.2 ml EDV(sp4-el) 91.1 ml LVAs ap4 16.3 cm\S\2 LVLs ap4 7.4 cm ESV(MOD-sp4) 32.3 ml ESV(sp4-el) 30.1 ml EF(MOD-sp4) 63.8 % EF(sp4-el) 66.9 % LVAd ap2 24.2 cm\S\2 LVLd ap2 8.4 cm EDV(MOD-sp2) 58.4 ml EDV(sp2-el) 58.8 ml LVAs ap2 11.8 cm\S\2 LVLs ap2 7.6 cm ESV(MOD-sp2) 15.9 ml ESV(sp2-el) 15.6 ml EF(MOD-sp2) 72.8 % EF(sp2-el) 73.4 % LVLd %diff -2.35 % EDV(MOD-bp) 73.7 ml LVLs %diff 1.7 % ESV(MOD-bp) 23.0 ml EF(MOD-bp) 68.7 % SV(MOD-sp4) 56.9 ml SI(MOD-sp4) 31.1 ml/m\S\2 SV(MOD-sp2) 42.5 ml SI(MOD-sp2) 23.2 ml/m\S\2 SV(MOD-bp) 50.6 ml SI(MOD-bp) 27.7 ml/m\S\2 SV(sp4-el) 60.9 ml SI(sp4-el) 33.3 ml/m\S\2 SV(sp2-el) 43.2 ml SI(sp2-el) 23.6 ml/m\S\2 Doppler Measurements and Calculations MV E max jalen 76.8 cm/sec MV A max jalen 98.4 cm/sec MV E/A 0.78 MV dec time 0.26 sec Ao V2 max 144.1 cm/sec Ao max PG 8.3 mmHg Ao max PG (full) 6.1 mmHg LV V1 max PG 2.2 mmHg LV V1 max 74.2 cm/sec PA V2 max 99.6 cm/sec PA max PG 4.0 mmHg TR max jalen 118.1 cm/sec
[2017-11-10 11:15] VITALS: BP 116/74; PULSE 87; TEMP 36.8; O2SAT 97
[2017-11-10] MEDS ORDERED: SYN100 PO (12:48)
--- NOTE | 2017-11-10 12:53 | Progress Note ---
Internal Med Progress Note Date of Service: Nov 10, 2017. Provider Documentation: SUBJECTIVE: Patient seen and examined at bedside. No orthostatic hypotension. Ambulatory OBJECTIVE: General Appearance: WD/WN, no apparent distress, + obese Head: normocephalic, atraumatic Eyes: normal inspection, sclerae normal ENT: normal ENT inspection Neck: supple, trachea midline Respiratory/Chest: chest non-tender, lungs clear, normal breath sounds, no respiratory distress, no accessory muscle use Cardiovascular: regular rate Abdomen/GI: non tender, soft, no organomegaly Back: normal inspection Extremities/Musculoskelatal: normal inspection, no calf tenderness, no pedal edema Neurologic/Psych: mover helper II-XII nml as tested, no motor/sensory deficits, alert, normal mood/affect, oriented x 3 Skin: normal color, warm/dry ASSESSMENT & PLAN: Imaging / labs Chest X ray : No acute cardiopulmonary abnormality Head CT: No acute intracranial abnormality. Atrophy and microvascular ischemic changes. Echocardiogram: The left ventricle is normal in size. There is normal left ventricular wall thickness. Ejection Fraction = 60-65%. Left ventricular systolic function is normal. The left ventricular wall motion is normal. serial troponins were negative No arrhythmia on telemetry monitoring Thyroid function tests abnormal: -TSH low at 0.287, but T4 is 9.8, have Decreased home dose levothyroxine dose from 125mcg to 100mcg. Patient should have thyroid studies repeated by primary care doctor for medication adjustment Summary: Patient had complaints of generalized weakness and chest discomfort. cardiac studies did not find evidence for heart attack. However. patient had fast heart rate (tachycardia) and appears to be on too high doses of levothyroxine. Also patient was to have orthostatic hypotension on admission to the hospital. This improved with IV fluids. Patient was seen by the discharging medical doctor and was able to ambulate without discomfort or weakness. Discharge home Patient should call [phone] to make follow up appointment to see [facility] Patient should review home medications with primary care doctor to minimize side effects of dehydration or sedation from medications used to treat depression/anxiety/pain and to review levothyroxine medication doses Vital Signs: Date Time Temp Pulse Resp B/P (MAP) Pulse Ox O2 Delivery O2 Flow Rate FiO2 11/10/17 12:00 Room Air 11/10/17 11:15 36.8 87 18 116/74 (88) 97 Room Air 11/10/17 08:00 Room Air 11/10/17 07:42 36.6 89 18 134/65 (88) 96 Room Air 11/10/17 04:30 Room Air 11/10/17 03:48 36.8 78 17 123/74 (90) 98 Room Air 11/09/17 23:45 Room Air 11/09/17 23:22 36.7 86 17 126/72 (90) 97 Room Air 11/09/17 18:57 89 17 98 11/09/17 18:07 93 17 123/75 100 11/09/17 17:15 97 Room Air 11/09/17 16:49 93/53 11/09/17 16:15 95 11/09/17 15:37 Room Air 11/09/17 15:29 96 112/90 107 118/60 108 88/66 11/09/17 15:12 36.5 104 22 121/62 97 Room Air Lab Results: Results Past 24 Hours Test 11/09/17 15:33 11/09/17 15:37 11/09/17 15:40 11/09/17 16:55 Range/Units White Blood Count 9.09 4.8-10.8 K/uL Red Blood Count 4.53 4.2-5.4 M/uL Hemoglobin 10.9 12.0-16.0 g/dL Hematocrit 35.0 37-47 % Mean Corpuscular Volume 77.3 80-100 fL Mean Corpuscular Hemoglobin 24.1 25-34 pg Mean Corpuscular Hemoglobin Concent 31.1 32-36 g/dl Platelet Count 267 130-400 K/uL Mean Platelet Volume 8.9 7.4-10.4 fL Neutrophils (%) (Auto) 64.9 % Lymphocytes (%) (Auto) 22.7 % Monocytes (%) (Auto) 10.8 % Eosinophils (%) (Auto) 0.9 % Basophils (%) (Auto) 0.3 % Neutrophils # (Auto) 5.90 1.4-6.5 K/uL Lymphocytes # (Auto) 2.06 1.2-3.4 K/uL Monocytes # (Auto) 0.98 0.11-0.59 K/uL Eosinophils # (Auto) 0.08 0-0.5 K/uL Basophils # (Auto) 0.03 0-0.2 K/uL RDW Standard Deviation 49.7 36.4-46.3 fL RDW Coefficient of Variation 17.6 11.5-14.5 % Immature Granulocyte % (Auto) 0.4 % Immature Granulocyte # (Auto) 0.04 0.00-0.02 K/uL Microcytosis PRESENT Prothrombin Time 10.4 9.0-12.0 SECONDS Prothromb Time International Ratio 1.0 0.9-1.1 Sodium Level 132 136-145 mmol/L Potassium Level 4.1 3.5-5.1 mmol/L Chloride Level 98 98-107 mmol/L Carbon Dioxide Level 28 21-32 mmol/L Anion Gap 6.0 21.0 16-25 mmol/L Blood Urea Nitrogen 17 7-18 mg/dl Creatinine 1.06 0.60-1.20 mg/dl Est Creatinine Clear Calc Drug Dose 46.9 ml/min Estimated GFR () 61.6 Estimated GFR (Non- 53.2 BUN/Creatinine Ratio 15.9 10-20 Random Glucose 88 70-99 mg/dl Calcium Level 9.6 8.5-10.1 mg/dl Magnesium Level 1.6 1.8-2.4 mg/dl Total Bilirubin 0.4 0.2-1 mg/dl Direct Bilirubin 0.1 0-0.2 mg/dl Aspartate Amino Transf (AST/SGOT) 17 15-37 U/L Alanine Aminotransferase (ALT/SGPT) 24 12-78 U/L Alkaline Phosphatase 38 45-117 U/L Total Creatine Kinase 83 26-192 U/L Creatine Kinase MB 1.5 0.5-3.6 ng/ml Creatine Kinase MB Ratio 1.8 0-3.0 Total Protein 7.3 6.4-8.2 gm/dl Albumin 3.9 3.4-5.0 gm/dl Thyroid Stimulating Hormone (TSH) 0.287 0.300-4.500 uIu/ml Bedside Troponin I < 0.030 0-0.045 ng/ml Bedside Hemoglobin 11.9 12.0-16.0 g/dl Bedside Hematocrit 35 37-47 % Bedside Sodium 135 135-144 mEq/L Bedside Potassium 4.2 3.3-5.0 mEq/L Bedside Chloride 95 101-112 mEq/L Bedside Total CO2 24 24-31 mEq/l Bedside Blood Urea Nitrogen 17 7-18 mg/dl Bedside Creatinine 1.1 0.6-1.3 mg/dl Bedside Glucose (other) 93 70-99 mg/dl Bedside Ionized Calcium (Kelsey) 1.26 1.12-1.32 mmol/l Urine Color DK YELLOW Urine Appearance CLEAR CLEAR Urine pH 5.5 4.5-7.5 Urine Specific [place] 1.029 1.000-1.030 Urine Protein NEG NEG Urine Glucose (UA) NEG NEG Urine Ketones TRACE NEG Urine Occult Blood NEG NEG Urine Nitrite NEG NEG Urine Bilirubin NEG NEG Urine Urobilinogen NEG NEG Urine Leukocyte Esterase NEG NEG Test 11/09/17 17:45 11/09/17 20:05 11/09/17 23:15 11/10/17 05:25 Range/Units Influenza Type A Antigen Neg for Influ A NEG Influenza Type B Antigen Neg for Influ B NEG Bedside Glucose 123 70-90 mg/dl Troponin I < 0.015 < 0.015 0-0.045 ng/ml Sodium Level 134 136-145 mmol/L Potassium Level 4.7 3.5-5.1 mmol/L Chloride Level 100 98-107 mmol/L Carbon Dioxide Level 28 21-32 mmol/L Anion Gap 6.0 3-11 mmol/L Blood Urea Nitrogen 12 7-18 mg/dl Creatinine 0.83 0.60-1.20 mg/dl Est Creatinine Clear Calc Drug Dose 59.9 ml/min Estimated GFR () 82.8 Estimated GFR (Non- 71.4 BUN/Creatinine Ratio 14.2 10-20 Random Glucose 108 70-99 mg/dl Estimated Average Glucose 140 mg/dl Hemoglobin A1c 6.5 4.5-5.6 % Calcium Level 8.7 8.5-10.1 mg/dl Magnesium Level 1.9 1.8-2.4 mg/dl Triglycerides Level 174 0-150 mg/dl Cholesterol Level 120 0-200 mg/dl HDL Cholesterol 68 mg/dl LDL Cholesterol, Calculated 17 mg/dl VLDL Cholesterol, Calculated 35 mg/dl Cholesterol/HDL Ratio 1.8 Free Triiodothyronine 3.08 2.30-4.20 pg/ml Test 11/10/17 06:46 11/10/17 07:28 11/10/17 11:31 Range/Units Bedside Glucose 124 70-90 mg/dl Thyroxine (T4) 9.8 4.5-10.9 mcg/dl Troponin I < 0.015 0-0.045 ng/ml
--- NOTE | 2017-11-10 13:07 | Discharge Instructions ---
Discharge Instructions Date of Service Nov 10, 2017. Admission Reason for Admission: Chest Pain, Hypotension Discharge Discharge Diagnosis / Problem: generalized weakness/orthostatic hypotension/ on levothyroxine, tachycardia Discharge Goals Goal(s): Improve function Activity Recommendations Activity Limitations: per Instructions/Follow-up section Lifting Limitations: until after follow-up appointment Exercise/Sports Limitations: until after follow-up appointment Shower/Bathe: no limitations . Instructions / Follow-Up Instructions / Follow-Up Imaging / labs Chest X ray : No acute cardiopulmonary abnormality Head CT: No acute intracranial abnormality. Atrophy and microvascular ischemic changes. Echocardiogram: The left ventricle is normal in size. There is normal left ventricular wall thickness. Ejection Fraction = 60-65%. Left ventricular systolic function is normal. The left ventricular wall motion is normal. serial troponins were negative No arrhythmia on telemetry monitoring Thyroid function tests abnormal: -TSH low at 0.287, but T4 is 9.8, have Decreased home dose levothyroxine dose from 125mcg to 100mcg. Patient should have thyroid studies repeated by primary care doctor for medication adjustment Summary: Patient had complaints of generalized weakness and chest discomfort. cardiac studies did not find evidence for heart attack. However. patient had fast heart rate (tachycardia) and appears to be on too high doses of levothyroxine. Also patient was to have orthostatic hypotension on admission to the hospital. This improved with IV fluids. Patient was seen by the discharging medical doctor and was able to ambulate without discomfort or weakness. Discharge home Patient should call [phone] to make follow [facility] appointment [facility] Patient should review home medications with primary care doctor to minimize side effects of dehydration or sedation from medications used to treat depression/anxiety/pain and to review levothyroxine medication doses Current Hospital Diet Patient's current hospital diet: AHA Diet (Heart Healthy), Diabetes Type 2 Diet Discharge Diet Recommended Diet: AHA Diet (Heart Healthy), Diabetes Type 2 Diet Pending Studies Studies pending at discharge: no Laboratory Results 11/09/17 15:33 Red Blood Count 4.53, Mean Corpuscular Volume 77.3, Mean Corpuscular Hemoglobin 24.1, Mean Corpuscular Hemoglobin Concent 31.1, Mean Platelet Volume 8.9, Neutrophils (%) (Auto) 64.9, Lymphocytes (%) (Auto) 22.7, Monocytes (%) (Auto) 10.8, Eosinophils (%) (Auto) 0.9, Basophils (%) (Auto) 0.3, Neutrophils # (Auto ) 5.90, Lymphocytes # (Auto) 2.06, Monocytes # (Auto) 0.98, Eosinophils # (Auto ) 0.08, Basophils # (Auto) 0.03 11/10/17 05:25 Test 11/09/17 15:33 11/09/17 15:37 11/09/17 15:40 11/09/17 16:55 White Blood Count 9.09 K/uL (4.8-10.8) Red Blood Count 4.53 M/uL (4.2-5.4) Hemoglobin 10.9 g/dL (12.0-16.0) Hematocrit 35.0 % (37-47) Mean Corpuscular Volume 77.3 fL (80-100) Mean Corpuscular Hemoglobin 24.1 pg (25-34) Mean Corpuscular Hemoglobin Concent 31.1 g/dl (32-36) Platelet Count 267 K/uL (130-400) Mean Platelet Volume 8.9 fL (7.4-10.4) Neutrophils (%) (Auto) 64.9 % Lymphocytes (%) (Auto) 22.7 % Monocytes (%) (Auto) 10.8 % Eosinophils (%) (Auto) 0.9 % Basophils (%) (Auto) 0.3 % Neutrophils # (Auto) 5.90 K/uL (1.4-6.5) Lymphocytes # (Auto) 2.06 K/uL (1.2-3.4) Monocytes # (Auto) 0.98 K/uL (0.11-0.59) Eosinophils # (Auto) 0.08 K/uL (0-0.5) Basophils # (Auto) 0.03 K/uL (0-0.2) RDW Standard Deviation 49.7 fL (36.4-46.3) RDW Coefficient of Variation 17.6 % (11.5-14.5) Immature Granulocyte % (Auto) 0.4 % Immature Granulocyte # (Auto) 0.04 K/uL (0.00-0.02) Microcytosis PRESENT Prothrombin Time 10.4 SECONDS (9.0-12.0) Prothromb Time International Ratio 1.0 (0.9-1.1) Total Bilirubin 0.4 mg/dl (0.2-1) Direct Bilirubin 0.1 mg/dl (0-0.2) Aspartate Amino Transf (AST/SGOT) 17 U/L (15-37) Alanine Aminotransferase (ALT/SGPT) 24 U/L (12-78) Alkaline Phosphatase 38 U/L (45-117) Total Creatine Kinase 83 U/L (26-192) Creatine Kinase MB 1.5 ng/ml (0.5-3.6) Creatine Kinase MB Ratio 1.8 (0-3.0) Total Protein 7.3 gm/dl (6.4-8.2) Albumin 3.9 gm/dl (3.4-5.0) Thyroid Stimulating Hormone (TSH) 0.287 uIu/ml (0.300-4.500) Bedside Troponin I < 0.030 ng/ml (0-0.045) Bedside Hemoglobin 11.9 g/dl (12.0-16.0) Bedside Hematocrit 35 % (37-47) Bedside Sodium 135 mEq/L (135-144) Bedside Potassium 4.2 mEq/L (3.3-5.0) Bedside Chloride 95 mEq/L (101-112) Bedside Total CO2 24 mEq/l (24-31) Bedside Blood Urea Nitrogen 17 mg/dl (7-18) Bedside Creatinine 1.1 mg/dl (0.6-1.3) Bedside Glucose (other) 93 mg/dl (70-99) Bedside Ionized Calcium ([place]) 1.26 mmol/l (1.12-1.32) Urine Color DK YELLOW Urine Appearance CLEAR (CLEAR) Urine pH 5.5 (4.5-7.5) Urine Specific [place] 1.029 (1.000-1.030) Urine Protein NEG (NEG) Urine Glucose (UA) NEG (NEG) Urine Ketones TRACE (NEG) Urine Occult Blood NEG (NEG) Urine Nitrite NEG (NEG) Urine Bilirubin NEG (NEG) Urine Urobilinogen NEG (NEG) Urine Leukocyte Esterase NEG (NEG) Test 11/09/17 17:45 11/10/17 05:25 11/10/17 06:46 11/10/17 07:28 Influenza Type A Antigen Neg for Influ A (NEG) Influenza Type B Antigen Neg for Influ B (NEG) Anion Gap 6.0 mmol/L (3-11) Est Creatinine Clear Calc Drug Dose 59.9 ml/min Estimated GFR () 82.8 Estimated GFR (Non- 71.4 BUN/Creatinine Ratio 14.2 (10-20) Estimated Average Glucose 140 mg/dl Hemoglobin A1c 6.5 % (4.5-5.6) Calcium Level 8.7 mg/dl (8.5-10.1) Magnesium Level 1.9 mg/dl (1.8-2.4) Triglycerides Level 174 mg/dl (0-150) Cholesterol Level 120 mg/dl (0-200) HDL Cholesterol 68 mg/dl LDL Cholesterol, Calculated 17 mg/dl VLDL Cholesterol, Calculated 35 mg/dl Cholesterol/HDL Ratio 1.8 Free Triiodothyronine 3.08 pg/ml (2.30-4.20) Bedside Glucose 124 mg/dl (70-90) Thyroxine (T4) 9.8 mcg/dl (4.5-10.9) Test 11/10/17 11:31 Troponin I < 0.015 ng/ml (0-0.045) Hemoglobin A1c Test 11/10/17 05:25 Range/Units Estimated Average Glucose 140 mg/dl Hemoglobin A1c 6.5 H 4.5-5.6 % Lipid Panel Test 11/10/17 05:25 Range/Units Triglycerides Level 174 H 0-150 mg/dl Cholesterol Level 120 0-200 mg/dl HDL Cholesterol 68 mg/dl Cholesterol/HDL Ratio 1.8 LDL Cholesterol, Calculated 17 mg/dl Medical Emergencies . Who to Call and When: Medical Emergencies: If at any time you feel your situation is an emergency, please call 911 immediately. . Non-Emergent Contact Non-Emergency issues call your: Primary Care Provider Call Non-Emergent contact if: you have any medication questions . . "Provider Documentation" section prepared by Francisco J Leal. . VTE Core Measure Inpt VTE Proph given/why not?: Treatment not indicated (patient ambulatory)
--- NOTE | 2017-11-10 13:17 | Discharge Summary ---
Discharge Summary Date of Service Nov 10, 2017. Discharge Summary Admission Date: Nov 09, 2017 at 17:24 Discharge Date: Nov 10, 2017 Discharge Disposition: Home Principal Diagnosis: Generalized weakness, Tachycardia, Orthostatic Hypotension possibly from dehydration, Diagnosis of Hypothyroidism but may be on too much Levothyroxine supplementation Medication Reconciliation New Medications: Levothyroxine Sodium (Synthroid) 100 Mcg Tab 100 MCG PO DAILYBB for 30 Days, #30 TAB Continued Medications: Alprazolam (Xanax) 0.25 Mg Tab 0.5-1 TAB PO DAILY PRN for Anxiety for 30 Days, TAB Amiloride/Hctz (Amiloride/Hydrochlorothia 5-50 mg) 1 Ea Tab 1 TAB PO DAILY Aspirin (Aspirin Ec) 81 Mg Tab 81 MG PO DAILY Budesonide/Formoterol Fumarate (Symbicort 160/4.5 Inhaler ) Aero 2 PUFFS INH BID, INHALER Bupropion HCl (Bupropion HCl) 100 Mg Tab 100 MG PO Q12 Calcium Carbonate-Vitamin D W/ (Caltrate 600+D Plus) 1 Chw Chw 1 TAB PO BID Celecoxib (Celecoxib) 200 Mg Cap 200 MG PO DAILY Cholecalciferol (Vitamin D 1000 Unit) 1,000 Unit Cap 1000 INTER.UNIT PO DAILY, CAP Donepezil Hydrochloride (Aricept) 10 Mg Tab 1 TAB PO HS for 30 Days, #30 TAB 5 Refills Duloxetine HCl (Duloxetine HCl) 30 Mg Cap 30 MG PO HS Duloxetine HCl (Duloxetine HCl) 60 Mg Cap 60 MG PO DAILY Esomeprazole Magnesium (Esomeprazole Magnesium) 40 Mg Cap 40 MG PO DAILY Ezetimibe/Simvastatin (Vytorin 10MG/20MG) Tab 1 TAB PO DAILY for 90 Days, #90 TAB 3 Refills Fluticasone Propionate (Nasal) (Flonase Allergy Relief) 50 Mcg/Act Spr 2 SPRAYS YUDY DAILY Folic Acid (Folic Acid) 800 Mcg Tab 1 TAB PO DAILY Lamotrigine (Lamictal) 150 Mg Tab 150 MG PO DAILY Lisinopril (Lisinopril) 20 Mg Tab 20 MG PO DAILY Memantine Hcl (Namenda Xr) 14 Mg Cap 14 MG PO DAILY Metformin Hcl (Glucophage) 1,000 Mg Tab 1000 MG PO BID Montelukast Sod (Montelukast Sodium) 10 Mg Tab 10 MG PO DAILY Multivitamins/Minerals (Mvi With Minerals) Tab 1 TAB PO DAILY, TAB Oxycodone HCl (Oxycodone HCl) 5 Mg Tab 5 MG PO Q6 PRN for Pain UP TO BID Ranitidine Hcl (Zantac) 300 Mg Tab 300 MG PO BID Vitamin E (Vitamin E 400 Iu) 400 Unit Cap 400 INTER.UNIT PO DAILY, CAP [Proair] () 2 PUFFS INH Q4 PRN for SOB/Wheezing Discontinued Medications: Cetirizine (Zyrtec) 10 Mg Tab 10 MG PO HS, TAB Levothyroxine Sodium (Levothyroxine Sodium) 125 Mcg Tab 125 MCG PO DAILY Admission Information HPI (per Admitting provider): This is a 72yo F with a PMH of DM II, HTN, HLD, multi-infarct dementia, anxiety , depression, hypothyroidism, asthma and other medical problems who presents with generalized weakness x 10 days. Last week, patient started to experience body aches, a headache and a low grade temperature. Denies having chills, sore throat, nasal congestion. [place] nauseous and was therefore eating and drinking significantly less than normal. Spent most of her time in bed. Yesterday, patient tried to do some cleaning and felt lightheaded and dizzy, with generalized weakness and feeling "wobbly" with ambulation. Also endorses some heaviness across her chest that went away once she rested. Denies any syncope, visual changes, confusion, SOB, vomiting, dysuria, diarrhea or LE swelling. Has been taking all medications regularly, including BP meds and diuretic. Does have anemia at baseline (hgb ~ 11). Has a history of multi-infarct dementia but states that mentation is at baseline currently. Patient was hypotensive with BP of 88/66 upon arrival. + orthostatics. Physical Exam (per Admitting): General Appearance: WD/WN, no apparent distress, + obese, + pertinent finding (pale, resting comfortably) Head: normocephalic, atraumatic Eyes: normal inspection, PERRL, sclerae normal ENT: normal ENT inspection, hearing grossly normal, pharynx normal (dry mucous membranes) Neck: supple, thyroid normal, trachea midline Respiratory/Chest: chest non-tender, lungs clear, normal breath sounds, no respiratory distress, no accessory muscle use Cardiovascular: regular rate, rhythm, no murmur, normal peripheral pulses Abdomen/GI: non tender, soft, no organomegaly Back: normal inspection Extremities/Musculoskelatal: normal inspection, no calf tenderness, no pedal edema Neurologic/Psych: 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 Cerebellar tests normal. Gait normal. ), alert, normal mood/affect, oriented x 3 Skin: normal color, warm/dry Hospital Course Imaging / labs Chest X ray : No acute cardiopulmonary abnormality Head CT: No acute intracranial abnormality. Atrophy and microvascular ischemic changes. Echocardiogram: The left ventricle is normal in size. There is normal left ventricular wall thickness. Ejection Fraction = 60-65%. Left ventricular systolic function is normal. The left ventricular wall motion is normal. serial troponins were negative No arrhythmia on telemetry monitoring Thyroid function tests abnormal: -TSH low at 0.287, but T4 is 9.8, have Decreased home dose levothyroxine dose from 125mcg to 100mcg. Patient should have thyroid studies repeated by primary care doctor for medication adjustment Summary: Patient had complaints of generalized weakness and chest discomfort. cardiac studies did not find evidence for heart attack. However. patient had fast heart rate (tachycardia) and appears to be on too high doses of levothyroxine. Also patient was to have orthostatic hypotension on admission to the hospital. This improved with IV fluids. Patient was seen by the discharging medical doctor and was able to ambulate without discomfort or weakness. Discharge home Patient should call [phone] to make follow up appointment to see [facility] Papo Keyes MD Patient should review home medications with primary care doctor to minimize side effects of dehydration or sedation from medications used to treat depression/anxiety/pain and to review levothyroxine medication doses Total time spent on discharge = 60 minutes This includes examination of the patient, discharge planning, medication reconciliation, and communication with other providers. Discharge Instructions see above
[2017-11-10 13:24] VITALS: BP 116/74; PULSE 87; TEMP 36.8; O2SAT 97
== END 2017-11-10 13:50 | disposition home or self-care (01) | DRG 312 ==
LOC: C.EDB 15:10 → C.2T 17:24 → ENRESERV 17:41
PROVIDERS: ADMIT Hospitalist; ATTEND Hospitalist
DX: I95.1 Orthostatic hypotension (principal); E03.9 Hypothyroidism, unspecified; T38.1X1A Poisoning by thyroid hormones and substitutes, accidental (unintentional), initial encounter; I10 Essential (primary) hypertension; E11.9 Type 2 diabetes mellitus without complications; F01.50 Vascular dementia, unspecified severity, without behavioral disturbance, psychotic disturbance, mood disturbance, and anxiety; F32.9 Major depressive disorder, single episode, unspecified; F41.9 Anxiety disorder, unspecified; J45.909 Unspecified asthma, uncomplicated; E78.5 Hyperlipidemia, unspecified; M19.90 Unspecified osteoarthritis, unspecified site; G89.29 Other chronic pain; Z79.82 Long term (current) use of aspirin; Z79.84 Long term (current) use of oral hypoglycemic drugs; Z79.899 Other long term (current) drug therapy; Z82.3 Family history of stroke; Z83.3 Family history of diabetes mellitus

== ENCOUNTER → 2017-11-19 | Outpatient (CLI) | payer OTHER ==
[~2017-11-19] MED LIST changes: -ALBU1NEB10 INH; -ALBUAER2 INH; +ALPR0.25 PO; +AMLH/550 PO; -AMLH550 PO; -AMR2 PO; -ARC10 PO; -ASPEC81 PO; +ASPI81TA28 PO; -ATV/1 PO; -BUPRTAB51 PO; +CALCCHW PO; +CELE1CAP30 PO; -CETI10TA84 PO; -CHOL100010 PO; +CHOL100027 PO; -CLB/200 PO; -CLTP PO; -COQ10100 PO; +CYM30 PO; +DONE10TA12 PO; +ESOM1CAP34 PO; -FLNIN NAE; +FLUT0.15 NAE; -FLV400 PO; +FOLI800T PO; -FRRG PO; -GLC500 PO; -HYDR-5688 PO; -LAMO100T PO; +LAMO150T PO; -LEVO150T22 PO; -LISI20TA3 PO; +LSN20 PO; +METF-384 PO; -MULT-506 PO; +MULT-513 PO; -NXM/40 PO; -OMEG10007 PO; +OXYC-609 PO; -OXYSR10 PO; +PROAIR INH; +RANI300T PO; -RANI300T2 PO; +SYN100 PO; -VITA400C15 PO; +VITA400C3 PO; +WLL100 PO; -XNX25
--- NOTE | 2017-11-19 15:40 | DIAGNOSTIC IMAGING REPORT ---
LUMBAR SPINE W/O CONTRAST CLINICAL HISTORY: 72 year-old Female with LUMBAR SPINE PAIN. Acute lumbar spine pain with radicular symptoms of the bilateral lower extremities. COMPARISON: Spot fluoroscopic images of the lumbar spine 06/14/2015. TECHNIQUE: Multiplanar, multi sequence MRI of the lumbar spine was performed without intravenous contrast. FINDINGS: Postoperative changes compatible with laminectomy and posterior interbody constanza and screw fusion are again seen extending from L2-L5. Prior discectomy at L4-L5. There is 8 mm anterolisthesis L4 on L5 without associated bone marrow edema, likely chronic. There is 3 mm anterolisthesis L3 on L4. Alignment is otherwise within normal limits. Multilevel intervertebral disc space narrowing, most pronounced at L2-L3 where there is severe disease. Moderate intervertebral disc space narrowing at L3-L4. Multilevel endplate spurring, most pronounced at L2-L3. Multilevel facet arthrosis is also present, partially obscured secondary to metallic density artifact. Soft tissue edema is noted posteriorly adjacent to the surgical levels, only partially imaged on the sagittal STIR images, nonspecific and likely related to prior surgery. Conus medullaris terminates at T12-L1. Signal within the spinal cord appears to be within normal limits. Cauda equina are unremarkable. No acute intra-abdominal or intrapelvic abnormality identified. Probable hemangioma at T10 measures 1.6 cm. T12-L1: No central canal or neural foraminal stenosis. L1-L2: There is a large central disc extrusion which extends superiorly terminating at the mid-level of L1 overall measuring 1.6 x 0.7 x 1.7 cm in transverse, AP and craniocaudal dimensions respectively. This causes moderate central canal stenosis with AP dimension of the thecal sac measuring 7 mm. Additionally, there is severe right and moderate left foraminal narrowing. Moderate facet arthrosis. L2-L3: Broad-based posterior disc osteophyte complex flattens the ventral thecal sac. Central canal and left neuroforamen are patent. Moderate to severe right foraminal stenosis. L3-L4: Broad-based posterior disc osteophyte complex with facet arthrosis. Left foramen is patent. Moderate right foraminal narrowing. L4-L5: Central canal appears patent. Neuroforamen are partially obscured by artifact. No definite left foraminal stenosis. There appears to be mild to moderate right foraminal narrowing secondary to posterior annular disc bulge and facet arthrosis. L5-S1: Moderate bilateral facet arthrosis with mild posterior spondylitic spurring. Central canal and left foramen are patent. Mild right foraminal stenosis. IMPRESSION: 1. Large disc extrusion at L1-L2 causes moderate central canal, severe right and moderate left foraminal narrowing. 2. Postoperative changes from posterior decompression and interbody constanza and screw fusion at L2-L5. 8 mm anterolisthesis L4 on L5 and 3 mm anterolisthesis L3 on L4 appears chronic. 3. Additional discogenic degenerative changes as above. No high-grade central canal narrowing. The above report was generated using voice recognition software. It may contain grammatical, syntax or spelling errors. Dictated: 11/19/2017 2:41 PM Transcribed: 11/19/2017 3:39 PM [email or web address] Electronically signed by: Bruce Sierra M.D. 11/19/2017 4:10 PM Dictated Date/Time: 11/19/2017 2:41 PM
== END ==
LOC: C.MRI 13:49
PROVIDERS: ATTEND Physician Assistant
DX: M54.5 Low back pain (principal)

== ENCOUNTER → 2017-12-12 | Outpatient (CLI) | payer OTHER ==
--- NOTE | 2017-12-12 10:56 | DIAGNOSTIC IMAGING REPORT ---
THORACIC SPINE WITHOUT CLINICAL HISTORY: 72 years-old Female presenting with THORACIC SPINE PAIN, back pain with reticular with the into both arms, history of lumbar fusion and disc extrusion at L1-2. TECHNIQUE: Multisequence, multiplanar MR imaging of the thoracic spine was performed without the use of intravenous contrast. IV contrast: None. COMPARISON: None. FINDINGS: Localizer images: Partially visualized posterior lumbar fusion hardware. Right shoulder arthroplasty may be present given extensive susceptibility artifact in this region. Normal thoracic kyphosis. No severe scoliosis. Vertebral bodies maintain normal height, alignment, and bone marrow signal intensity. Intervertebral discs preserved in the thoracic spine. No neural foraminal or spinal canal narrowing in the thoracic spine. Thoracic spinal cord normal in morphology and signal intensity, indicating in good position above the superior endplate of L1. Paraspinal soft tissues in the thoracic spine normal. Incidental note made of a simple appearing left renal cyst. Partially visualized lumbar spine demonstrates significant disc protrusion with cranial migration at L1-2. The disc fragment effaces the right paracentral anterior thecal sac at L1. This does not appear to impinge the cauda equina, however, the disc bulge component results in bilateral neural foraminal narrowing noted. Partially visualized posterior transpedicular screw and constanza fixation of L2 and inferiorly. I'm anatomy defects also noted in the lumbar spine. Nonspecific subcutaneous edema in the lumbar spine. IMPRESSION: 1. Normal MR examination of the thoracic spine. 2. Partially visualized disc extrusion at L1-2 with cranial migration. Electronically signed by: Papo Donis M.D. 12/12/2017 10:55 AM Dictated Date/Time: 12/12/2017 10:49 AM
== END | disposition home or self-care (01) ==
LOC: C.MRI 09:35
PROVIDERS: ATTEND Orthopaedic Surgery Orthopaedic Surgery of the Spine
DX: M54.6 Pain in thoracic spine (principal)

== ENCOUNTER → 2017-12-19 | Outpatient (CLI) | payer OTHER ==
[~2017-12-19] MED LIST changes: +AMOX875T PO; +CELE1CAP28 PO; +HYDR25TA4 PO; +LEVO100T7 PO; +LORA-741 PO; +TRAZ50TA35 PO
[2017-12-19 13:45] LABS: HEMOGLOBIN A1C 6.4 % (4.5-5.6)
== END | disposition home or self-care (01) ==
LOC: C.LAB 11:29
PROVIDERS: ATTEND Family Medicine
DX: E03.9 Hypothyroidism, unspecified (principal); Z79.899 Other long term (current) drug therapy; E11.9 Type 2 diabetes mellitus without complications

== ENCOUNTER 2018-01-08 05:57 | Inpatient (IN) | payer OTHER ==
[2017-12-19 11:41] VITALS: BMI 43.0
--- NOTE | 2017-12-19 12:33 | PAT Medication Instructions ---
Service Date Dec 19, 2017. Current Home Medication List Amoxicillin & Pot Clavulanate (Augmentin 875-125 mg), 1 TAB PO BID Aspirin (Aspirin Ec), 81 MG PO QAM Budesonide/Formoterol Fumarate (Symbicort 160/4.5 Inhaler ), 2 PUFFS INH BID Bupropion HCl (Bupropion HCl), 100 MG PO BID Calcium Carbonate-Vitamin D W/ (Caltrate 600+D Plus), 1 TAB PO BID Celecoxib (Celecoxib), 1 MG PO QAM Cholecalciferol (Vitamin D 1000 Unit), 1,000 INTER.UNIT PO QAM Donepezil Hydrochloride (Aricept), 1 TAB PO HS Duloxetine HCl (Duloxetine HCl), 30 MG PO HS Duloxetine HCl (Duloxetine HCl), 60 MG PO QAM Esomeprazole Magnesium (Esomeprazole Magnesium), 40 MG PO QAM Ezetimibe/Simvastatin (Vytorin 10MG/20MG), 1 TAB PO HS Fluticasone Propionate (Nasal) (Flonase Allergy Relief), 2 SPRAYS YUDY QAM Folic Acid (Folic Acid), 1 TAB PO QAM Hydrochlorothiazide (Hctz), 25 MG PO QAM Lamotrigine (Lamictal), 150 MG PO HS Levothyroxine Sodium (Levothyroxine Sodium), 1 TAB PO QAM Lisinopril (Lisinopril), 20 MG PO QAM Lorazepam (Ativan), 0.5 MG PO UD PRN for prn Memantine Hcl (Namenda Xr), 14 MG PO HS Metformin Hcl (Glucophage), 1,000 MG PO BID Montelukast Sod (Montelukast Sodium), 10 MG PO HS Multivitamins/Minerals (Mvi With Minerals), 1 TAB PO QAM Oxycodone HCl (Oxycodone HCl), 5 MG PO Q6 PRN for Pain Ranitidine Hcl (Zantac), 300 MG PO BID Trazodone Hcl (Trazodone), 50 MG PO UD PRN for prn Vitamin E (Vitamin E 400 Iu), 400 INTER.UNIT PO HS [Proair], 2 PUFFS INH Q4 PRN for SOB/Wheezing Medication Instructions For Your Scheduled Surgery -Continue as directed: Amoxicillin & Pot Clavulanate (Augmentin 875-125 mg), 1 TAB PO BID - Hold the following medications 2 weeks prior to surgery: Vitamin E (Vitamin E 400 Iu), 400 INTER.UNIT PO HS - Hold the following medications 7 days prior to surgery per your surgeon's instructions: Celecoxib (Celecoxib), 1 MG PO QAM - Hold the following medications 24 hours prior to surgery: Ezetimibe/Simvastatin (Vytorin 10MG/20MG), 1 TAB PO HS - Hold the following medications the morning of surgery: Calcium Carbonate-Vitamin D W/ (Caltrate 600+D Plus), 1 TAB PO BID Cholecalciferol (Vitamin D 1000 Unit), 1,000 INTER.UNIT PO QAM Folic Acid (Folic Acid), 1 TAB PO QAM Hydrochlorothiazide (Hctz), 25 MG PO QAM Lisinopril (Lisinopril), 20 MG PO QAM Metformin Hcl (Glucophage), 1,000 MG PO BID Multivitamins/Minerals (Mvi With Minerals), 1 TAB PO QAM - Take the following medications the morning of surgery with a sip of water: Aspirin (Aspirin Ec), 81 MG PO QAM Budesonide/Formoterol Fumarate (Symbicort 160/4.5 Inhaler ), 2 PUFFS INH BID Bupropion HCl (Bupropion HCl), 100 MG PO BID Duloxetine HCl (Duloxetine HCl), 60 MG PO QAM Esomeprazole Magnesium (Esomeprazole Magnesium), 40 MG PO QAM Fluticasone Propionate (Nasal) (Flonase Allergy Relief), 2 SPRAYS YUDY QAM Levothyroxine Sodium (Levothyroxine Sodium), 1 TAB PO QAM Lorazepam (Ativan), 0.5 MG PO UD PRN for prn (if needed) Oxycodone HCl (Oxycodone HCl), 5 MG PO Q6 PRN for Pain (if needed) Ranitidine Hcl (Zantac), 300 MG PO BID Trazodone Hcl (Trazodone), 50 MG PO UD PRN for prn (if needed) [Proair], 2 PUFFS INH Q4 PRN for SOB/Wheezing (if needed) - Take the following medications as scheduled the night before surgery: Budesonide/Formoterol Fumarate (Symbicort 160/4.5 Inhaler ), 2 PUFFS INH BID Bupropion HCl (Bupropion HCl), 100 MG PO BID Donepezil Hydrochloride (Aricept), 1 TAB PO HS Duloxetine HCl (Duloxetine HCl), 30 MG PO HS Lamotrigine (Lamictal), 150 MG PO HS Lorazepam (Ativan), 0.5 MG PO UD PRN for prn (if needed) Memantine Hcl (Namenda Xr), 14 MG PO HS Metformin Hcl (Glucophage), 1,000 MG PO BID Montelukast Sod (Montelukast Sodium), 10 MG PO HS Oxycodone HCl (Oxycodone HCl), 5 MG PO Q6 PRN for Pain (if needed) Ranitidine Hcl (Zantac), 300 MG PO BID Trazodone Hcl (Trazodone), 50 MG PO UD PRN for prn (if needed) [Proair], 2 PUFFS INH Q4 PRN for SOB/Wheezing (if needed) If you have any questions please call us at [phone] or [phone] or [phone]
[2017-12-19 13:17] LABS: BASO % 0.8 %; BASO ABS # 0.06 K/uL (0-0.2); EOS % 1.2 %; EOS ABS # 0.09 K/uL (0-0.5); HEMATOCRIT 33.5 % (37-47); HEMOGLOBIN 10.2 g/dL (12.0-16.0); IG# 0.04 K/uL (0.00-0.02); LYMPH % 23.7 %; LYMPH ABS # 1.85 K/uL (1.2-3.4); MEAN CELL VOLUME 76.3 fL (80-100); MEAN CORPUSCULAR HEMOGLOBIN 23.2 pg (25-34); MEAN CORPUSCULAR HGB CONC 30.4 g/dl (32-36); MEAN PLATELET VOLUME 9.5 fL (7.4-10.4); MONO % 10.6 %; MONO ABS # 0.83 K/uL (0.11-0.59); NEUT % 63.2 %; NEUT ABS # 4.95 K/uL (1.4-6.5); PLATELET COUNT 257 K/uL (130-400); RED CELL DISTRIBUTION WIDTH CV 17.8 % (11.5-14.5); RED CELL DISTRIBUTION WIDTH SD 49.2 fL (36.4-46.3); WHITE BLOOD COUNT 7.82 K/uL (4.8-10.8)
[2017-12-19 13:25] LABS: CALCIUM 9.7 mg/dl (8.5-10.1); CREATININE 0.87 mg/dl (0.60-1.20); POTASSIUM 4.1 mmol/L (3.5-5.1)
[2018-01-08] VITALS (27 sets, daily range): BP systolic 90–150; BP diastolic 57–89; PULSE 92–120; TEMP 36.5–37.1; O2SAT 92–100; Ht 144.8 cm; Wt 93.6 kg
[~2018-01-08] VITALS: Ht 144.8 cm; Wt 93.6 kg
[~2018-01-08 05:57] MED LIST changes: -ALPR0.25 PO; -AMLH/550 PO; -ASPI81TA28 PO; -CALCCHW PO; -CELE1CAP30 PO; -CHOL100027 PO; -CYM30 PO; -CYM60 PO; -HYDR25TA4 PO; -LAMO150T PO; -LEVO100T7 PO; -LSN20 PO; -MEMA1CAP3 PO; -METF-384 PO; -MULT-513 PO; -SNG10 PO; -SYN100 PO; -VITA400C3 PO; -WLL100 PO
[2018-01-08] MEDS ORDERED: LACTATED RINGER'S 1000ML 1,000 ML IV SCH (06:00)
[2018-01-08] MEDS ORDERED: MIDAZOLAM HCL 1 MG/ML 2ML VIAL ONE (06:40)
[2018-01-08] MEDS ORDERED: FENTANYL CITRATE INJ 50 MCG/1 ML 2 ML VIAL ONE ×5 (06:40→11:03)
[2018-01-08] MEDS ORDERED: ALBUMIN HUMAN 5% 12.5 GM/250 ML VIAL IV ONE ×2 (06:47→10:20)
[2018-01-08] MEDS ORDERED: BUPIVACAINE/EPINEPHRINE 0.5% MPF 1:200,000 30 ML VIAL ONE (06:59)
[2018-01-08] MEDS ORDERED: BACITRACIN 50000 UNIT VIAL ONE (07:00)
[2018-01-08] MEDS ORDERED: THROMBIN FOR SOLN 20000 UNIT KIT ONE (07:16)
[2018-01-08] MEDS ORDERED: HYDROmorphone INJ 1 MG/ML SYR IV PRN ×2 (07:30→14:30)
[2018-01-08] MEDS ORDERED: ONDANSETRON INJ 2 MG/ML 2 ML VIAL IV PRN ×2 (07:30→11:15)
[2018-01-08] MEDS ORDERED: FENTANYL CITRATE INJ 50 MCG/1 ML 2 ML VIAL IV PRN (07:30)
[2018-01-08] MEDS ORDERED: ATROPINE SULFATE 0.1 MG/ML 5ML SYR IV PRN (07:30)
[2018-01-08] MEDS ORDERED: EpHEDrine SULFATE INJ 50 MG/ML AMP IV PRN (07:30)
--- NOTE | 2018-01-08 07:30 | History & Physical Bridge Note ---
H&P Re-Evaluation Bridge Note: I have examined the patient, reviewed the History & Physical and in the interval since the performance of the History & Physical I have noted the following changes of clinical significance: No changes noted
--- NOTE | 2018-01-08 07:31 | History and Physical ---
History & Physical Date Jan 08, 2018. Chief Complaint Back and leg pain History of Present Illness The patient is a 72 year old female with complaints of back and leg pain Past Medical/Surgical History Medical Problems: (1) Anxiety (2) Asthma (3) Depression (4) Diabetes mellitus, type II (5) DJD of shoulder (6) Dyslipidemia (7) Fibromyalgia (8) GERD (gastroesophageal reflux disease) (9) Hypertension (10) Hypothyroidism (11) Lumbar stenosis with neurogenic claudication (12) Rotator cuff arthropathy (13) Sleep apnea (14) Vascular dementia Surgical Problems: (1) H/O section (2) H/O colonoscopy (3) H/O esophagogastroduodenoscopy (4) History of rectal surgery (5) Sp lumbar spinal decompression (6) Status post bilateral knee replacements (7) Status post cholecystectomy (8) Status post hysterectomy (9) Status post tonsillectomy Allergies Coded Allergies: Doxycycline (Verified Allergy, Unknown, GASTRITIS, 12/19/17) Miconazole (Verified Allergy, Unknown, SEVERE BURNING ITCHING, 12/19/17) Codeine (Verified Adverse Reaction, Unknown, STOMACH UPSET, 01/08/18) Macrolides (Verified Adverse Reaction, Unknown, STOMach upset-CAN TAKE Z PACK PER PT, 01/07/18) Morphine (Verified Adverse Reaction, Unknown, ITCHING, 01/08/18) Home Medications Scheduled Aspirin (Aspirin Ec), 81 MG PO QAM Budesonide/Formoterol Fumarate (Symbicort 160/4.5 Inhaler ), 2 PUFFS INH BID Bupropion HCl (Bupropion HCl), 100 MG PO BID Calcium Carbonate-Vitamin D W/ (Caltrate 600+D Plus), 1 TAB PO BID Celecoxib (Celecoxib), 1 MG PO QAM Cholecalciferol (Vitamin D 1000 Unit), 1,000 INTER.UNIT PO QAM Donepezil Hydrochloride (Aricept), 1 TAB PO HS Duloxetine HCl (Duloxetine HCl), 30 MG PO HS Duloxetine HCl (Duloxetine HCl), 60 MG PO QAM Esomeprazole Magnesium (Esomeprazole Magnesium), 40 MG PO QAM Ezetimibe/Simvastatin (Vytorin 10MG/20MG), 1 TAB PO HS Fluticasone Propionate (Nasal) (Flonase Allergy Relief), 2 SPRAYS YUDY QAM Folic Acid (Folic Acid), 1 TAB PO QAM Hydrochlorothiazide (Hctz), 25 MG PO QAM Lamotrigine (Lamictal), 150 MG PO HS Levothyroxine Sodium (Levothyroxine Sodium), 1 TAB PO QAM Lisinopril (Lisinopril), 20 MG PO QAM Memantine Hcl (Namenda Xr), 14 MG PO HS Metformin Hcl (Glucophage), 1,000 MG PO BID Montelukast Sod (Montelukast Sodium), 10 MG PO HS Multivitamins/Minerals (Mvi With Minerals), 1 TAB PO QAM Ranitidine Hcl (Zantac), 300 MG PO BID Vitamin E (Vitamin E 400 Iu), 400 INTER.UNIT PO HS Scheduled PRN Lorazepam (Ativan), 0.5 MG PO UD PRN for prn Oxycodone HCl (Oxycodone HCl), 5 MG PO Q6 PRN for Pain Trazodone Hcl (Trazodone), 50 MG PO UD PRN for prn [Proair], 2 PUFFS INH Q4 PRN for SOB/Wheezing Diagnosis Lumbar spinal stenosis Plan of Treatment Removal of hardware L2 L1-L2 decompression T11 S1 fusion with bolts
[2018-01-08] MEDS: CEFAZOLIN 2000MG IV PUSH 15 ML IV SCH ×3 (07:42→15:54)
[2018-01-08] MEDS ORDERED: HYDROmorphone INJ 2 MG/ML SYR/VIAL ONE ×2 (08:11→11:03)
[2018-01-08] MEDS ORDERED: PHENYLEPHRINE 100MCG/ML 5ML SYR ONE ×2 (09:15→11:47)
[2018-01-08 09:42] LABS: HEMATOCRIT 30.1 % (37-47); HEMOGLOBIN 9.4 g/dL (12.0-16.0)
[2018-01-08] MEDS ORDERED: CALCIUM CHLORIDE 10% 10 ML SYR ONE (10:33)
[2018-01-08] MEDS ORDERED: FLOSEAL HEMOSTATIC MATRIX 10ML TOP ONE (10:49)
--- NOTE | 2018-01-08 11:05 | [facility] Operative Report ---
Operative Report Operative Date Jan 08, 2018. Pre-Operative Diagnosis Lumbar spinal stenosis Post-Operative Diagnosis Lumbar Spinal Stenosis Procedure(s) Performed 1. Removal of posterior segmental instrumentation L2 L5. #2 expiration of fusion L2-L5. #3 lumbar decompression medial facetectomies foraminotomies T12-L1 L1-L2. #4 posterior spinal fusion T11-S1. #5 bilateral SI joint fusions. #6 placement of posterior segmental instrumentation T11-S1 with bilateral iliac bolts. #7 interbody fusion L1 to #8 placement peek cage 9 x 22 mm at L1 to. #9 placement of locally harvested Ding's allograft in the posterior lateral gutters. #10 placement InFUSE collagen sponge, mass graft to posterior gutters and ostium bone graft in the interbody space. Surgeon Dr. Pantoja Financial Services Counselor Surgeon(s) Chelita Ayala PA-C Estimated Blood Loss 1900 cc Findings Severe spinal stenosis Specimens A: explanted hardware Anesthesia Type General Description of Procedure Patient was met with preoperatively case discussed all questions addressed. After informed consent obtained patient was taken to the operative suite underwent intubation and placed in a prone position on the Sylvain table on top of the Robbie frame. All bony prominences were well-padded eyes inspected to ensure no external pressure placed upon the. This point the thoracolumbar spine was prepped and draped in normal sterile fashion. Sharp dissection with the assistance of Bovie cautery was performed down to and exposing the lamina and transverse processes of T11 T12-L1 instrumentation at L2 L3-L4-L5 and the sacral ala and the bilateral SI joints. I then proceeded remove the hardware at L2-L5 bilaterally. Explored the fusion mass noted to be grossly intact. Then performed a complete laminectomy of L1-2 and T12-L1. Pedicle screws in place and T11 T12-L1 L2-L3-L4 L5-S1 levels bilaterally with the assistance of fluoroscopy as well as bilateral iliac bolts. I then performed through a transforaminal approach on the left complete discectomy of L1 to endplates created to subcortical bleeding bone and a 9 x 22 mm peek cage filled with ostium bone graft tapped into position. Appropriate size rods were then cut contoured and locked in final position bilaterally. Transverse processes of T11 -T12 L1-L2 L3-L4-L5 and sacral ala Wells the bilateral SI joints were brought out to subcortical bleeding bone. Infuse collagen sponge, mass graft was placed to bilateral SI joints as well as the posterior gutters. Cross-link was locked into position. A 15 round SHADIA drain inserted. Incision was then closed with 1 Vicryl in the fascia 2-0 Vicryl subcutaneous 3 4-0 Monocryl for final skin closure Steri-Strips sterile dressings placed. Patient waited to the PACU stable condition. Please note Chelita Marie was present throughout the entire procedure involved in patient positioning complex portions of the surgery and final skin closure. I attest to the content of the Intraoperative Record and any orders documented therein. Any exceptions are noted below.
[2018-01-08] MEDS ORDERED: CEFAZOLIN SOD 1 GM VIAL ONE (11:06)
[2018-01-08] MEDS ORDERED: SODIUM CHLORIDE 0.9% 1000ML 1,000 ML IV SCH (11:07)
[2018-01-08] MEDS ORDERED: SOD PHOSPHATE/SOD BIPHOSPHATE ENEMA 132 ML BTL PR PRN (11:15)
[2018-01-08] MEDS ORDERED: PROMETHAZINE HCL INJ 12.5 MG in SODIUM CHLORIDE 0.9% 50ML 50 ML IV PRN (11:15)
[2018-01-08] MEDS ORDERED: MAGNESIUM HYDROXIDE SUSP 30 ML UDC PO PRN (11:15)
[2018-01-08] MEDS ORDERED: BISACODYL 10 MG SUPP PR PRN (11:15)
[2018-01-08] MEDS ORDERED: DO NOT ADMINISTER PNEUMOCOCCAL VACCINE PRN (11:15)
[2018-01-08] MEDS ORDERED: LORAZEPAM 0.5 MG TAB PO PRN (11:15)
[2018-01-08] MEDS ORDERED: NALOXONE HCL 0.4 MG/1 ML VIAL/CARP IV PRN ×2 (11:15)
[2018-01-08] MEDS ORDERED: METOCLOPRAMIDE HCL INJ 5 MG/ML 2 ML VIAL IV PRN (11:15)
[2018-01-08] MEDS ORDERED: LORAZEPAM INJ 0.5 MG in SYRINGE 0.75 ML IV PRN (11:15)
[2018-01-08] MEDS ORDERED: HYDROmorphone HCL 0.5MG/ML 50 ML CASSETTE IV PRN (11:15)
[2018-01-08] MEDS ORDERED: DO NOT ADMINISTER FLU VACCINE PRN (11:15)
[2018-01-08] MEDS ORDERED: ACETAMINOPHEN IV 100 ML IV PRN (11:15)
[2018-01-08] MEDS ORDERED: hydrOXYzine HCL 25 MG TAB PO PRN (11:15)
[2018-01-08] MEDS ORDERED: ACETAMINOPHEN 500 MG TAB PO PRN (11:15)
[2018-01-08] MEDS ORDERED: FAMOTIDINE 20 MG TAB PO PRN (11:15)
--- NOTE | 2018-01-08 11:15 | DIAGNOSTIC IMAGING REPORT ---
INTRAOPERATIVE RADIOGRAPHS CLINICAL HISTORY: T11-S1 spinal fusion. Fluoroscopy time: 43 seconds. FINDINGS: 6 fluoroscopic views of the lumbar spine are presented. There has been laminectomy and posterior fusion from T11-S1. Discectomy change is noted at L1-L2 and L4-L5. Bilateral iliac bolts are in place. The orthopedic hardware appears intact. IMPRESSION: Intraoperative images from T11-S1 spinal fusion. Electronically signed by: James Staley M.D. 01/08/2018 11:13 AM Dictated Date/Time: 01/08/2018 11:12 AM
[2018-01-08] MEDS ORDERED: HYDROmorphone HCL 0.5MG/ML 50 ML CASSETTE ONE (11:40)
[2018-01-08] MEDS ORDERED: PROPOFOL IV EMULSION 10 MG/ML 20 ML VIAL IV ONE (11:47)
[2018-01-08] MEDS ORDERED: NEOSTIGMINE METHYLSULFATE 1 MG/ML 10ML VIAL ONE (11:47)
[2018-01-08] MEDS ORDERED: DEXAMETHASONE SOD INJ 4 MG/ML VIAL ONE (11:47)
[2018-01-08] MEDS ORDERED: ONDANSETRON INJ 2 MG/ML 2 ML VIAL ONE (11:47)
[2018-01-08] MEDS ORDERED: ROCURONIUM BROMIDE 10 MG/ML 5 ML VIAL IV ONE (11:47)
[2018-01-08] MEDS ORDERED: GLYCOPYRROLATE INJ 0.2 MG/ML VIAL ONE (11:47)
[2018-01-08] MEDS ORDERED: LIDOCAINE HCL 2% 2 ML VIAL (20MG/ML) ONE (11:47)
[2018-01-08 12:30] LABS: HEMATOCRIT 27.1 % (37-47); HEMOGLOBIN 8.9 g/dL (12.0-16.0)
--- NOTE | 2018-01-08 15:30 | Anesthesiology Progress Note ---
Anesthesia Post Op Note Date & Time Jan 08, 2018 at 15:27 Vital Signs Pain Intensity: 6.0 Vital Signs Past 12 Hours Date Time Temp Pulse Resp B/P (MAP) Pulse Ox O2 Delivery O2 Flow Rate FiO2 01/08/18 14:45 94 18 99/67 (78) 98 Nasal Cannula 2.0 01/08/18 14:15 100 Nasal Cannula 2.0 01/08/18 14:15 36.5 98 20 90/61 (71) 100 Nasal Cannula 2.0 01/08/18 14:00 101 14 104/62 100 Nasal Cannula 4 01/08/18 13:45 93 16 93/58 97 Nasal Cannula 4 01/08/18 13:30 93 16 102/56 100 Nasal Cannula 4 01/08/18 13:25 93 16 95/52 100 Nasal Cannula 4 01/08/18 13:10 93 16 101/58 99 Nasal Cannula 4 01/08/18 12:55 90 13 97/56 99 Nasal Cannula 4 01/08/18 12:45 36.2 91 13 82/55 99 Nasal Cannula 4 01/08/18 12:35 97 12 111/65 99 Nasal Cannula 4 01/08/18 12:25 92 12 110/59 100 Nasal Cannula 4 01/08/18 12:15 98 12 78/51 98 Nasal Cannula 4 01/08/18 12:05 103 12 86/56 100 Oxymask 10 01/08/18 11:55 100 14 85/61 100 Oxymask 10 01/08/18 11:45 104 16 85/63 100 Oxymask 10 01/08/18 11:38 36.2 92 16 97/49 100 Oxymask 10 01/08/18 06:19 94 Room Air 01/08/18 06:13 36.7 92 18 150/89 Notes Mental Status: alert / awake / arousable, participated in evaluation Pt Amnestic to Procedure: Yes Nausea / Vomiting: adequately controlled Pain: adequately controlled Airway Patency, RR, SpO2: stable & adequate BP & HR: stable & adequate Hydration State: stable & adequate Anesthetic Complications: no major complications apparent Anesthetic Complications: Patient had significant blood loss intraop requiring 1000ml of albumin, 2L in crystalloid, and 2 U PRBC. Patient was hypotensive in PACU, but mentating appropriately. Blood pressure appropriate and stable after additional crystalloid bollus. Hgb 8.9. Patient transferred to PCU for additional monitoring secondary to blood loss, hypotension, and intraoperative fluid requirements.
--- NOTE | 2018-01-08 15:42 | Medical Consult ---
Consultation Date of Consultation: Jan 08, 2018. Attending Physician: Hu Pantoja D.O. Reason for Consultation: medical management post op History of Present Illness Ms Ritter is s/p decompression and fusion today. She is very drowsy and is having trouble staying . EBL of 1900. She is very pale and complaining of severe GERD which she says is worse than she has ever had and also has some pressure. She denies sob, cp, palpitations, or lightheadedness. She is nauseas and had an emesis earlier. She is appropriate in her speech if a bit slow to speak. She has a facial droop but states this is baseline. History from previous records as patient is sleeping on and off. ROS Constitutional: no chills, aches, sweats or fever Respiratory: see HPI Cardiac: see HPI GI:see HPI : no dysuria or hesitancy Extremities: no joint pain or weakness Skin: no rash All other systems reviewed and negative Past Medical/Surgical History 1) Anxiety (2) Asthma (3) Depression (4) Diabetes mellitus, type II (5) DJD of shoulder (6) Dyslipidemia (7) Fibromyalgia (8) GERD (gastroesophageal reflux disease) (9) Hypertension (10) Hypothyroidism (11) Lumbar stenosis with neurogenic claudication (12) Rotator cuff arthropathy (13) Sleep apnea (14) Vascular dementia Surgical Problems: (1) H/O section (2) H/O colonoscopy (3) H/O esophagogastroduodenoscopy (4) History of rectal surgery (5) Sp lumbar spinal decompression (6) Status post bilateral knee replacements (7) Status post cholecystectomy (8) Status post hysterectomy (9) Status post tonsillectomy Family History Diabetes mellitus FH: cancer Stroke Per outpatient records, family history of breast, colon and ovarian cancers. Social History Smoking Status: Never Smoker Marital Status: Housing Status: lives with significant other Occupation Status: retired Allergies Coded Allergies: Doxycycline (Verified Allergy, Unknown, GASTRITIS, 12/19/17) Miconazole (Verified Allergy, Unknown, SEVERE BURNING ITCHING, 12/19/17) Codeine (Verified Adverse Reaction, Unknown, STOMACH UPSET, 01/08/18) Macrolides (Verified Adverse Reaction, Unknown, STOMach upset-CAN TAKE Z PACK PER PT, 01/07/18) Morphine (Verified Adverse Reaction, Unknown, ITCHING, 01/08/18) Home Medications Active Reported Trazodone (Trazodone HCl) 50 Mg Tab 50 Mg PO UD PRN Levothyroxine Sodium 100 Mcg Tab 1 Tab PO QAM 90 Days Hctz (Hydrochlorothiazide) 25 Mg Tab 25 Mg PO QAM Ativan (Lorazepam) 0.5 Mg Tab 0.5 Mg PO UD PRN Celecoxib 100 Mg Cap 1 Mg PO QAM Aricept (Donepezil Hydrochloride) 10 Mg Tab 1 Tab PO HS 30 Days Namenda Xr (Memantine Hcl) 14 Mg Cap 14 Mg PO HS Caltrate 600+D Plus (Calcium Carbonate-Vitamin D W/) 1 Chw Chw 1 Tab PO BID Mvi With Minerals (Multivitamins/Minerals) Tab 1 Tab PO QAM Lamictal (Lamotrigine) 150 Mg Tab 150 Mg PO HS Folic Acid 800 Mcg Tab 1 Tab PO QAM Vitamin D 1000 Unit (Cholecalciferol) 1,000 Unit Cap 1,000 Inter.unit PO QAM Vitamin E 400 Iu (Vitamin E) 400 Unit Cap 400 Inter.unit PO HS Aspirin Ec (Aspirin) 81 Mg Tab 81 Mg PO QAM Flonase Allergy Relief (Fluticasone Propionate (Nasal)) 50 Mcg/Act Spr 2 Sprays YUDY QAM Glucophage (Metformin Hcl) 1,000 Mg Tab 1,000 Mg PO BID Esomeprazole Magnesium 40 Mg Cap 40 Mg PO QAM [Proair] 2 Puffs INH Q4 PRN Duloxetine HCl 60 Mg Cap 60 Mg PO QAM Symbicort 160/4.5 Inhaler (Budesonide/Formoterol Fumarate) Aero 2 Puffs INH BID Lisinopril 20 Mg Tab 20 Mg PO QAM Vytorin 10MG/20MG (Ezetimibe/Simvastatin) Tab 1 Tab PO HS 90 Days Montelukast Sodium (Montelukast Sod) 10 Mg Tab 10 Mg PO HS Oxycodone HCl 5 Mg Tab 5 Mg PO Q6 PRN UP TO BID Zantac (Ranitidine Hcl) 300 Mg Tab 300 Mg PO BID Bupropion HCl 100 Mg Tab 100 Mg PO BID Duloxetine HCl 30 Mg Cap 30 Mg PO HS Current Inpatient Medications Current Inpatient Medications Medications (Trade) Dose Ordered Sig/Tung Route Start Time Stop Time Status Last Admin Dose Admin Cefazolin Sodium 15 ml @ 3.75 mls/ min PREOP IV 01/08/18 06:00 01/08/18 18:00 01/08/18 07:42 3.75 MLS/MIN Lactated Ringer's 1,000 ml @ 15 mls/hr Q24H IV 01/08/18 06:00 01/09/18 05:59 Promethazine HCl 12.5 mg/Sodium Chloride 50.5 ml @ 202 mls/hr Q6H PRN IV 01/08/18 11:15 02/07/18 11:14 Ondansetron HCl (Zofran Inj) 4 mg Q6H PRN IV 01/08/18 11:15 02/07/18 11:14 Metoclopramide HCl (Reglan Inj) 10 mg Q6H PRN IV 01/08/18 11:15 02/07/18 11:14 Lorazepam (Ativan Tab) 0.5 mg Q8H PRN PO 01/08/18 11:15 02/07/18 11:14 Lorazepam 0.5 mg/ Syringe 1 ml @ 1 mls/min Q8H PRN IV 01/08/18 11:15 02/07/18 11:14 Pneumococcal Polysaccharide Vaccine 1 ea PRN PRN N/A 01/08/18 11:15 02/07/18 11:14 Influenza Virus Vacc Triv Types A&B 1 ea PRN PRN N/A 01/08/18 11:15 02/07/18 11:14 Polyethylene (Miralax Powder Packet) 17 gm Q6 PO 01/10/18 06:00 02/09/18 05:59 Bisacodyl (Dulcolax Supp) 10 mg DAILY PRN [place] 01/08/18 11:15 02/07/18 11:14 Magnesium Hydroxide (Milk Of Magnesia Susp) 30 ml DAILY PRN PO 01/08/18 11:15 02/07/18 11:14 Hydromorphone HCl (Dilaudid Inj) 0.5 mg Q3H PRN IV 01/09/18 06:00 01/23/18 05:59 Oxycodone HCl (Roxicodone Immediate Rel Tab) 5-10mg prn moderate to sev... Q4H PRN PO 01/09/18 06:00 01/23/18 05:59 Cefazolin Sodium 2000 mg/Syringe 15 ml @ 3.75 mls/ min Q8H IV 01/08/18 16:00 01/09/18 00:03 Sodium Chloride 1,000 ml @ 150 mls/hr Q6H40M IV 01/08/18 14:30 02/07/18 14:29 Acetaminophen (Tylenol Tab) 1,000 mg Q8H PRN PO 01/08/18 11:15 02/07/18 11:14 Acetaminophen 100 ml @ 400 mls/hr Q8H PRN IV 01/08/18 11:15 02/07/18 11:14 Naloxone HCl (Narcan Inj) 0.1 mg Q5M PRN IV 01/08/18 11:15 02/07/18 11:14 Senna/Docusate Sodium (Senokot S Tab) 2 tab HS PO 01/08/18 21:00 02/07/18 20:59 Sodium Biphosphate/ Sodium Phosphate (Fleet Enema) 132 ml ONE PRN [place] 01/08/18 11:15 02/07/18 11:14 Hydroxyzine HCl (Vistaril Tab) 25 mg Q8H PRN PO 01/08/18 11:15 02/07/18 11:14 Al Hydroxide/Mg Hydroxide (Maalox Susp) 30 ml Q6H PRN PO 01/08/18 11:15 02/07/18 11:14 Famotidine (Pepcid Tab) 20 mg Q12 PRN PO 01/08/18 11:15 02/07/18 11:14 Diphenhydramine HCl (Benadryl Cap) 25 mg Q6H PRN PO 01/08/18 11:15 02/07/18 11:14 Miscellaneous Information (Discontinue COMPENSATION CONSULTING MANAGER) 1 ea ONE ONCE N/A 01/09/18 06:00 01/09/18 06:01 Naloxone HCl (Narcan Inj) 0.1 mg Q5M PRN IV 01/08/18 11:15 01/09/18 06:00 Hydromorphone HCl (Dilaudid Clamshell Operator) 25 mg PRN PRN IV 01/08/18 11:15 01/09/18 06:00 Sodium Chloride 1,000 ml @ 15 mls/hr Q24H IV 01/08/18 11:07 01/09/18 06:00 Aspirin (Ecotrin Tab) 81 mg QAM PO 01/09/18 09:00 02/08/18 08:59 Budesonide/ Formoterol Fumarate (Symbicort 160/ 4.5 Inh) 2 puffs BID INH 01/08/18 21:00 02/07/18 20:59 Bupropion HCl (Wellbutrin Tab) 100 mg BID PO 01/08/18 21:00 02/07/18 20:59 Donepezil HCl (Aricept Tab) 10 mg HS PO 01/08/18 21:00 02/07/18 20:59 Duloxetine HCl (Cymbalta Cap) 30 mg HS PO 01/08/18 21:00 02/07/18 20:59 Duloxetine HCl (Cymbalta Cap) 60 mg QAM PO 01/09/18 09:00 02/08/18 08:59 Ezetimibe/ Simvastatin (Vytorin 10/20 Tab) 1 tab HS PO 01/08/18 21:00 02/07/18 20:59 Fluticasone Propionate (Flonase Nasal [place]) 2 sprays QAM YUDY 01/09/18 09:00 02/08/18 08:59 Hydrochlorothiazide (Hydrochlorothiazide Tab) 25 mg QAM PO 01/09/18 09:00 02/08/18 08:59 Lamotrigine (Lamictal Tab) 150 mg HS PO 01/08/18 21:00 02/07/18 20:59 Levothyroxine Sodium (Synthroid Tab) 100 mcg DAILYBB PO 01/09/18 06:00 02/08/18 05:59 Lisinopril (Zestril Tab) 20 mg QAM PO 01/09/18 09:00 02/08/18 08:59 Miscellaneous Information (Order Awaiting Action) 1 ea QS N/A 01/08/18 16:00 02/07/18 15:59 Montelukast Sodium (Singulair Tab) 10 mg HS PO 01/08/18 21:00 02/07/18 20:59 Miscellaneous Information (Order Awaiting Action) 1 ea QS N/A 01/08/18 16:00 02/07/18 15:59 Pantoprazole Sodium (Protonix Tab) 40 mg QAM PO 01/09/18 09:00 02/08/18 08:59 Ranitidine HCl (zANTac TAB) 300 mg BID PO 01/08/18 21:00 02/07/18 20:59 Hydromorphone HCl (Dilaudid Inj) 1 mg Q3H PRN IV 01/08/18 14:30 01/22/18 14:29 Future hold Pantoprazole Sodium 40 mg/ Syringe 10 ml @ 5 mls/min NOW ONCE IV 01/08/18 15:30 01/08/18 15:31 UNV Physical Exam Date Time Temp Pulse Resp B/P (MAP) Pulse Ox O2 Delivery O2 Flow Rate FiO2 01/08/18 14:45 94 18 99/67 (78) 98 Nasal Cannula 2.0 01/08/18 14:15 100 Nasal Cannula 2.0 01/08/18 14:15 36.5 98 20 90/61 (71) 100 Nasal Cannula 2.0 01/08/18 14:00 101 14 104/62 100 Nasal Cannula 4 01/08/18 13:45 93 16 93/58 97 Nasal Cannula 4 01/08/18 13:30 93 16 102/56 100 Nasal Cannula 4 01/08/18 13:25 93 16 95/52 100 Nasal Cannula 4 01/08/18 13:10 93 16 101/58 99 Nasal Cannula 4 01/08/18 12:55 90 13 97/56 99 Nasal Cannula 4 01/08/18 12:45 36.2 91 13 82/55 99 Nasal Cannula 4 01/08/18 12:35 97 12 111/65 99 Nasal Cannula 4 01/08/18 12:25 92 12 110/59 100 Nasal Cannula 4 01/08/18 12:15 98 12 78/51 98 Nasal Cannula 4 01/08/18 12:05 103 12 86/56 100 Oxymask 10 01/08/18 11:55 100 14 85/61 100 Oxymask 10 01/08/18 11:45 104 16 85/63 100 Oxymask 10 01/08/18 11:38 36.2 92 16 97/49 100 Oxymask 10 01/08/18 06:19 94 Room Air 01/08/18 06:13 36.7 92 18 150/89 Laboratory Results Last 24 Hours Test 01/08/18 06:19 01/08/18 09:34 01/08/18 11:44 01/08/18 12:04 Bedside Glucose 171 mg/dl 196 mg/dl Hemoglobin 9.4 g/dL 8.9 g/dL Hematocrit 30.1 % 27.1 % Assessment & Plan Ms. Ritter is an acutely ill woman with large EBL of 1900 and chest pain here s/p decompression and fusion 01/08 Post op/ chest pain/ GERD - patient is on tele but requires increased supervision and possibly large transfusion - will consult tower switch operator and transfer to ICU - Per nursing, patient received 2 units in OR. Will give 2 units now and 2 units on hold and TXA per protocol - Protonix IV push, GI cocktail - EKG showed low voltage but no obvious sign of ischemic change - serial hgbs q4h, hgb stat and troponin - continue IVF - No cardiac history - 2013 dobutamine stress was normal - DVT proph, bowel regimen per surgical team DMII - patient takes metformin outpatient - will hold and put on ss - bsgs ac and hs GERD - protonix IV push Hypothyroidism - continue home levothyroxine Depression - continue Cymbalta Full code STOCKROOM ATTENDANT Physician Supervision Note: I interviewed and examined the patient. Discussed with Erin Levy STOCKROOM ATTENDANT and agree with findings and plan as documented in the note. Any exceptions or clarifications are listed here: None We are called acutely for medical consult the patient has acute blood loss anemia endorgan strain with chest pain reportedly the patient was 1900 mL of blood in the surgery. I personally phoned the surgeon, Dr. Pantoja, he confirmed to me that that was the amount of blood loss. Patient is markedly pale she is hypotensive she is complaining of chest pain In the room the blood pressure was roughly 90/50 the patient was mentating complaining of chest pains and is reminds her of her GERD but there is also a component of pressure there is a SHADIA drain draining mary red blood Assessment skin is a acute blood loss anemia possibly hemorrhagic shock. Ms Levy and I phoned the tower switch operator we transfer the patient to order additional 2 units of blood intensive care unit, Gan exam make acid and asked to have another unit of blood on hold volume resuscitated with crystalloid and informed the surgical attending the patient be moved to the intensive care unit. We held appropriate hypertensive meds placed on insulin sliding scale and initiate a Protonix bolus twice daily. I spoke personally to the intensive care unit physician who is at the bedside and transition her care acutely to his care with frequent vital signs troponin checks. We also interpret an EKG at the bedside which showed low voltage but no acute current of injury All total we spent an hour and 15 minutes critical care time at the bedside Documented By: Eder Castrejon Report
[2018-01-08 15:43] LABS: HEMATOCRIT 25.3 % (37-47); HEMOGLOBIN 8.5 g/dL (12.0-16.0)
[2018-01-08] MEDS ORDERED: GI COCKTAIL PO ONE (15:45)
[2018-01-08] MEDS: CEFAZOLIN IV 2,000 MG in SYRINGE 0 ML IV SCH (15:55)
[2018-01-08] MEDS: SODIUM CHLORIDE 0.9% 1000ML 1,000 ML IV SCH ×2 (15:55→21:26)
[2018-01-08] MEDS ORDERED: PANTOprazole INJ 40 MG in SYRINGE 0 ML IV ONE (16:00)
[2018-01-08] MEDS ORDERED: ALUMINUM/MAGNESIUM SUSP 18 ML, LIDOCAINE HCL 2% VISCOUS SOLN 6 ML, BARCODE IDENTIFIER 1 EA PO ONE ×2 (16:00)
[2018-01-08] MEDS ORDERED: DEXTROSE 50% 50 ML SYR IV PRN (16:15)
[2018-01-08] MEDS ORDERED: GLUCOSE 40% GEL 15 GM TUBE PO PRN (16:15)
[2018-01-08] MEDS ORDERED: GLUCOSE 10 TABS/TUBE PO PRN (16:15)
[2018-01-08] MEDS ORDERED: GLUCAGON FOR INJ 1 MG VIAL SQ PRN (16:15)
[2018-01-08 16:51] LABS: INR 1.1 (0.9-1.1); PTT PATIENT 22.8 SECONDS (21.0-31.0)
[2018-01-08 16:59] LABS: ALBUMIN 3.3 gm/dl (3.4-5.0); CALCIUM 8.5 mg/dl (8.5-10.1); CREATININE 0.87 mg/dl (0.60-1.20)
[2018-01-08] MEDS ORDERED: TRANEXAMIC ACID INJ 1,000 MG in SODIUM CHLORIDE 0.9% 100ML 100 ML IV SCH (17:00)
[2018-01-08 17:02] LABS: TOTAL PROTEIN 5.1 gm/dl (6.4-8.2)
--- NOTE | 2018-01-08 18:18 | Critical Care Consultation ---
Critical Care Consultation Date of Consultation: Jan 08, 2018. Attending Physician: Hu Pantoja D.O. Reason for Consultation: Significant blood loss with associated chest pain History of Present Illness Patient is a 72-year-old female with a history of chronic back pain history of prior spinal surgery who underwent a decompression and fusion today. In discussion with orthopedics the patient had considerable blood loss estimated blood loss of 1900. Postoperatively she was very pale and complaining of severe mid sternal chest discomfort similar to prior GERD however more severe in intensity which she has not experienced before. She denies any past medical history of cardiac disease nor stenting. She denies history of bleeding ulcers , she had a history of a blood transfusion with her prior back surgery. She denies any history of bleeding gums however she does admit to easy bruisability as well as heavy menses which prompted her to undergo a hysterectomy previously. I have been asked to evaluate for possible profound anemia and ongoing blood losses. Past Medical/Surgical History 1) Anxiety (2) Asthma (3) Depression (4) Diabetes mellitus, type II (5) DJD of shoulder (6) Dyslipidemia (7) Fibromyalgia (8) GERD (gastroesophageal reflux disease) (9) Hypertension (10) Hypothyroidism (11) Lumbar stenosis with neurogenic claudication (12) Rotator cuff arthropathy (13) Sleep apnea (14) Vascular dementia Surgical Problems: (1) H/O section (2) H/O colonoscopy (3) H/O esophagogastroduodenoscopy (4) History of rectal surgery (5) Sp lumbar spinal decompression (6) Status post bilateral knee replacements (7) Status post cholecystectomy (8) Status post hysterectomy (9) Status post tonsillectomy Family History Diabetes mellitus FH: cancer Stroke Social History Smoking Status: Never Smoker Marital Status: Housing Status: lives with significant other () Occupation Status: retired Allergies Coded Allergies: Doxycycline (Verified Allergy, Unknown, GASTRITIS, 12/19/17) Miconazole (Verified Allergy, Unknown, SEVERE BURNING ITCHING, 12/19/17) Codeine (Verified Adverse Reaction, Unknown, STOMACH UPSET, 01/08/18) Macrolides (Verified Adverse Reaction, Unknown, STOMach upset-CAN TAKE Z PACK PER PT, 01/07/18) Morphine (Verified Adverse Reaction, Unknown, ITCHING, 01/08/18) Home Medications Scheduled Aspirin (Aspirin Ec), 81 MG PO QAM Budesonide/Formoterol Fumarate (Symbicort 160/4.5 Inhaler ), 2 PUFFS INH BID Bupropion HCl (Bupropion HCl), 100 MG PO BID Calcium Carbonate-Vitamin D W/ (Caltrate 600+D Plus), 1 TAB PO BID Celecoxib (Celecoxib), 1 MG PO QAM Cholecalciferol (Vitamin D 1000 Unit), 1,000 INTER.UNIT PO QAM Donepezil Hydrochloride (Aricept), 1 TAB PO HS Duloxetine HCl (Duloxetine HCl), 30 MG PO HS Duloxetine HCl (Duloxetine HCl), 60 MG PO QAM Esomeprazole Magnesium (Esomeprazole Magnesium), 40 MG PO QAM Ezetimibe/Simvastatin (Vytorin 10MG/20MG), 1 TAB PO HS Fluticasone Propionate (Nasal) (Flonase Allergy Relief), 2 SPRAYS YUDY QAM Folic Acid (Folic Acid), 1 TAB PO QAM Hydrochlorothiazide (Hctz), 25 MG PO QAM Lamotrigine (Lamictal), 150 MG PO HS Levothyroxine Sodium (Levothyroxine Sodium), 1 TAB PO QAM Lisinopril (Lisinopril), 20 MG PO QAM Memantine Hcl (Namenda Xr), 14 MG PO HS Metformin Hcl (Glucophage), 1,000 MG PO BID Montelukast Sod (Montelukast Sodium), 10 MG PO HS Multivitamins/Minerals (Mvi With Minerals), 1 TAB PO QAM Ranitidine Hcl (Zantac), 300 MG PO BID Vitamin E (Vitamin E 400 Iu), 400 INTER.UNIT PO HS Scheduled PRN Lorazepam (Ativan), 0.5 MG PO UD PRN for prn Oxycodone HCl (Oxycodone HCl), 5 MG PO Q6 PRN for Pain Trazodone Hcl (Trazodone), 50 MG PO UD PRN for prn [Proair], 2 PUFFS INH Q4 PRN for SOB/Wheezing Current Inpatient Medications Current Inpatient Medications Medications (Trade) Dose Ordered Sig/Tung Route Start Time Stop Time Status Last Admin Dose Admin Cefazolin Sodium 15 ml @ 3.75 mls/ min PREOP IV 01/08/18 06:00 01/08/18 18:00 01/08/18 15:54 3.75 MLS/MIN Lactated Ringer's 1,000 ml @ 15 mls/hr Q24H IV 01/08/18 06:00 01/09/18 05:59 Promethazine HCl 12.5 mg/Sodium Chloride 50.5 ml @ 202 mls/hr Q6H PRN IV 01/08/18 11:15 02/07/18 11:14 Ondansetron HCl (Zofran Inj) 4 mg Q6H PRN IV 01/08/18 11:15 02/07/18 11:14 Metoclopramide HCl (Reglan Inj) 10 mg Q6H PRN IV 01/08/18 11:15 02/07/18 11:14 Lorazepam (Ativan Tab) 0.5 mg Q8H PRN PO 01/08/18 11:15 02/07/18 11:14 Lorazepam 0.5 mg/ Syringe 1 ml @ 1 mls/min Q8H PRN IV 01/08/18 11:15 02/07/18 11:14 Pneumococcal Polysaccharide Vaccine 1 ea PRN PRN N/A 01/08/18 11:15 02/07/18 11:14 Influenza Virus Vacc Triv Types A&B 1 ea PRN PRN N/A 01/08/18 11:15 02/07/18 11:14 Polyethylene (Miralax Powder Packet) 17 gm Q6 PO 01/10/18 06:00 02/09/18 05:59 Bisacodyl (Dulcolax Supp) 10 mg DAILY PRN HI 01/08/18 11:15 02/07/18 11:14 Magnesium Hydroxide (Milk Of Magnesia Susp) 30 ml DAILY PRN PO 01/08/18 11:15 02/07/18 11:14 Hydromorphone HCl (Dilaudid Inj) 0.5 mg Q3H PRN IV 01/09/18 06:00 01/23/18 05:59 Oxycodone HCl (Roxicodone Immediate Rel Tab) 5-10mg prn moderate to sev... Q4H PRN PO 01/09/18 06:00 01/23/18 05:59 Cefazolin Sodium 2000 mg/Syringe 15 ml @ 3.75 mls/ min Q8H IV 01/08/18 16:00 01/09/18 00:03 01/08/18 15:55 3.75 MLS/MIN Sodium Chloride 1,000 ml @ 150 mls/hr Q6H40M IV 01/08/18 14:30 02/07/18 14:29 01/08/18 15:55 150 MLS/HR Acetaminophen (Tylenol Tab) 1,000 mg Q8H PRN PO 01/08/18 11:15 02/07/18 11:14 Acetaminophen 100 ml @ 400 mls/hr Q8H PRN IV 01/08/18 11:15 02/07/18 11:14 Naloxone HCl (Narcan Inj) 0.1 mg Q5M PRN IV 01/08/18 11:15 02/07/18 11:14 Senna/Docusate Sodium (Senokot S Tab) 2 tab HS PO 01/08/18 21:00 02/07/18 20:59 Sodium Biphosphate/ Sodium Phosphate (Fleet Enema) 132 ml ONE PRN HI 01/08/18 11:15 02/07/18 11:14 Hydroxyzine HCl (Vistaril Tab) 25 mg Q8H PRN PO 01/08/18 11:15 02/07/18 11:14 Al Hydroxide/Mg Hydroxide (Maalox Susp) 30 ml Q6H PRN PO 01/08/18 11:15 02/07/18 11:14 Famotidine (Pepcid Tab) 20 mg Q12 PRN PO 01/08/18 11:15 02/07/18 11:14 Diphenhydramine HCl (Benadryl Cap) 25 mg Q6H PRN PO 01/08/18 11:15 02/07/18 11:14 01/08/18 17:24 25 MG Miscellaneous Information (Discontinue DRAW END HAND) 1 ea ONE ONCE N/A 01/09/18 06:00 01/09/18 06:01 Naloxone HCl (Narcan Inj) 0.1 mg Q5M PRN IV 01/08/18 11:15 01/09/18 06:00 Hydromorphone HCl (Dilaudid Fondant Puff Maker) 25 mg PRN PRN IV 01/08/18 11:15 01/09/18 06:00 Sodium Chloride 1,000 ml @ 15 mls/hr Q24H IV 01/08/18 11:07 01/09/18 06:00 Budesonide/ Formoterol Fumarate (Symbicort 160/ 4.5 Inh) 2 puffs BID INH 01/08/18 21:00 02/07/18 20:59 Bupropion HCl (Wellbutrin Tab) 100 mg BID PO 01/08/18 21:00 02/07/18 20:59 Donepezil HCl (Aricept Tab) 10 mg HS PO 01/08/18 21:00 02/07/18 20:59 Duloxetine HCl (Cymbalta Cap) 30 mg HS PO 01/08/18 21:00 02/07/18 20:59 Duloxetine HCl (Cymbalta Cap) 60 mg QAM PO 01/09/18 09:00 02/08/18 08:59 Fluticasone Propionate (Flonase Nasal [place]) 2 sprays QAM YUDY 01/09/18 09:00 02/08/18 08:59 Hydrochlorothiazide (Hydrochlorothiazide Tab) 25 mg QAM PO 01/09/18 09:00 02/08/18 08:59 Lamotrigine (Lamictal Tab) 150 mg HS PO 01/08/18 21:00 02/07/18 20:59 Levothyroxine Sodium (Synthroid Tab) 100 mcg DAILYBB PO 01/09/18 06:00 02/08/18 05:59 Miscellaneous Information (Order Awaiting Action) 1 ea QS N/A 01/08/18 16:00 02/07/18 15:59 Miscellaneous Information (Order Awaiting Action) 1 ea QS N/A 01/08/18 16:00 02/07/18 15:59 Pantoprazole Sodium (Protonix Tab) 40 mg QAM PO 01/09/18 09:00 02/08/18 08:59 Hydromorphone HCl (Dilaudid Inj) 1 mg Q3H PRN IV 01/08/18 14:30 01/22/18 14:29 Future hold Pantoprazole Sodium 40 mg/ Syringe 10 ml @ 5 mls/min DAILY@09,21 IV 01/08/18 21:00 02/07/18 20:59 Insulin Aspart (novoLOG ASPART) SLIDING SCALE If C... ACHS SC 01/08/18 16:15 02/07/18 16:14 Glucose (Glucose 40% Gel) 15-30 GRAMS 15 GRAMS... UD PRN PO 01/08/18 16:15 02/07/18 16:14 Glucose (Glucose Chew Tab) 4-8 Tablets 4 Tabl... UD PRN PO 01/08/18 16:15 02/07/18 16:14 Dextrose (Dextrose 50% 50ML Syringe) 25-50ML OF 50% DW IV FOR... UD PRN IV 01/08/18 16:15 02/07/18 16:14 Glucagon (Glucagon Inj) 1 mg UD PRN SQ 01/08/18 16:15 02/07/18 16:14 Review of Systems A 10 point review of systems has been obtained and is otherwise negative. Constitutional: No fever, No chills Respiratory: No cough, No sputum, No wheezing, No shortness of breath, No dyspnea on exertion Abdomen: No pain, No vomiting, No GI bleeding Genitourinary - Female: + vaginal bleeding (Prior to hysterectomy) Hematologic / Lymphatic: + abnormal bleeding/bruising, No clotting problems, No swollen lymph nodes, No night sweats Integumentary: + color change (Pale) Physical Exam Date Time Temp Pulse Resp B/P (MAP) Pulse Ox O2 Delivery O2 Flow Rate FiO2 01/08/18 16:54 36.5 96 18 99/63 98 3.0 01/08/18 16:24 36.5 104 18 92/57 99 3.0 01/08/18 16:04 36.8 100 18 122/76 98 01/08/18 14:45 94 18 99/67 (78) 98 Nasal Cannula 2.0 01/08/18 14:15 100 Nasal Cannula 2.0 01/08/18 14:15 36.5 98 20 90/61 (71) 100 Nasal Cannula 2.0 01/08/18 14:00 101 14 104/62 100 Nasal Cannula 4 01/08/18 13:45 93 16 93/58 97 Nasal Cannula 4 01/08/18 13:30 93 16 102/56 100 Nasal Cannula 4 01/08/18 13:25 93 16 95/52 100 Nasal Cannula 4 01/08/18 13:10 93 16 101/58 99 Nasal Cannula 4 01/08/18 12:55 90 13 97/56 99 Nasal Cannula 4 01/08/18 12:45 36.2 91 13 82/55 99 Nasal Cannula 4 01/08/18 12:35 97 12 111/65 99 Nasal Cannula 4 01/08/18 12:25 92 12 110/59 100 Nasal Cannula 4 01/08/18 12:15 98 12 78/51 98 Nasal Cannula 4 01/08/18 12:05 103 12 86/56 100 Oxymask 10 01/08/18 11:55 100 14 85/61 100 Oxymask 10 01/08/18 11:45 104 16 85/63 100 Oxymask 10 01/08/18 11:38 36.2 92 16 97/49 100 Oxymask 10 01/08/18 06:19 94 Room Air 01/08/18 06:13 36.7 92 18 150/89 General Appearance: other (Significant pallor) Eyes: PERRLA, conjunctivae pale ENT: other (Airway patent) Neck: trachea midline, no stridor, supple Respiratory: breath sounds normal, clear to auscultation, clear to percussion Cardiovasular: regular rate/rhythm Abdomen: non tender, normal bowel sounds, no rebound Back: normal inspection (With exception of surgical dressing), other (No shadowing on dressing, drain present) Upper Extremities: no edema Pulses: dorsalis pedis (R) (2+), dorsalis pedis (L) (2+) Neuro: alert, oriented x 3, normal motor exam, normal sensation, other ( Patient is able to dorsiflex and plantarflex at the foot and is able to extend and flex her great toe bilaterally) Psychiatric: normal affect Laboratory Results Last 24 Hours Test 01/08/18 06:19 01/08/18 09:34 01/08/18 11:44 01/08/18 12:04 Bedside Glucose 171 mg/dl 196 mg/dl Hemoglobin 9.4 g/dL 8.9 g/dL Hematocrit 30.1 % 27.1 % Test 01/08/18 15:36 01/08/18 16:20 Hemoglobin 8.5 g/dL Hematocrit 25.3 % Troponin I < 0.015 ng/ml Prothrombin Time 12.0 SECONDS Prothromb Time International Ratio 1.1 Activated Partial Thromboplast Time 22.8 SECONDS Partial Thromboplastin Ratio 0.9 Sodium Level 135 mmol/L Potassium Level 4.0 mmol/L Chloride Level 100 mmol/L Carbon Dioxide Level 27 mmol/L Anion Gap 8.0 mmol/L Blood Urea Nitrogen 14 mg/dl Creatinine 0.87 mg/dl Est Creatinine Clear Calc Drug Dose 58.1 ml/min Estimated GFR () 78.2 Estimated GFR (Non- 67.5 BUN/Creatinine Ratio 16.0 Random Glucose 208 mg/dl Calcium Level 8.5 mg/dl Total Bilirubin 0.8 mg/dl Aspartate Amino Transf (AST/SGOT) 20 U/L Alanine Aminotransferase (ALT/SGPT) 22 U/L Alkaline Phosphatase 26 U/L Total Protein 5.1 gm/dl Albumin 3.3 gm/dl Globulin 1.8 gm/dl Albumin/Globulin Ratio 1.8 Assessment & Plan Reason Critically Ill: Significant postoperative blood loss concern for postoperative anemia and ongoing bleeding PLAN: Neuro: Pain control - Hydromorphone ordered per orthopedics Resp: Supplemental oxygen as needed CV: Chest discomfort - I have reviewed the EKGs from 1520 as well as 1636, sinus rhythm with first-degree AV block and nonspecific T-wave abnormality no significant changes compared to each other -I reviewed the echo dated November 10, 2017: EF 60-65 no significant valvular abnormality Fluids/Renal: Normal saline running at 150 ML's per hour ID: Postoperative antibiotics per orthopedic surgery -Monitor fever curve GI/Nutrition: Regular diet per orthopedics Heme: Acute blood loss anemia on the setting of chronic anemia since 2013 -Check fibrinogen level, may require FFP -Added TXA 1 g now then 1 g 3 hours later -Serial H&H -Patient received 2 units packed red blood cells at 10 AM, received third unit at 1600 -Has 2 units on hold Endocrine: Blood sugars per ICU hyperglycemia protocol CODE STATUS: Full I have personally spent 55 minutes of critical care time in the direct management of this patient. This is a life/limb threatening event. This includes time spent evaluating patient, direct bedside care, chart review, placing orders, interpretation of diagnostic studies, discussion with consultants, patient, and/or family members regarding treatment decisions, as well as other required patient management activities. This time is exclusive of all separately billable procedures, and teaching time and separate from and in addition to any other critical care service time.
[2018-01-08] MEDS: INSULIN ASPART 100 UNITS/ML 3 ML PEN SC SCH ×2 (18:53→21:00)
[2018-01-08] MEDS ORDERED: TRANEXAMIC ACID INJ 1,000 MG in SODIUM CHLORIDE 0.9% 100ML 100 ML IV ONE (20:00)
[2018-01-08] MEDS ORDERED: RANITIDINE HCL 150 MG TAB PO SCH (21:00)
[2018-01-08] MEDS ORDERED: MONTELUKAST SOD 10 MG TAB PO SCH (21:00)
[2018-01-08] MEDS ORDERED: PANTOprazole INJ 40 MG in SYRINGE 0 ML IV SCH (21:00)
[2018-01-08] MEDS ORDERED: EZETIMIBE/SIMVASTATIN 10/20 TAB PO SCH (21:00)
[2018-01-08] MEDS: BUDESONIDE/FORMOTEROL FUMARATE 160/4.5 60 PUFFS/INHALER INH SCH (21:06)
[2018-01-08] MEDS: DONEPEZIL HCL 10 MG TAB PO SCH (21:08)
[2018-01-08] MEDS: DULOXETINE (CYMBALTA) 30 MG CAP PO SCH (21:08)
[2018-01-08] MEDS: DOCUSATE SODIUM/SENNA 50/8.6MG TAB PO SCH (21:09)
[2018-01-08 21:42] LABS: HEMATOCRIT 31.3 % (37-47); HEMOGLOBIN 10.4 g/dL (12.0-16.0)
[2018-01-08] MEDS: ALBUTEROL HFA INHALER 8.5 GM INH PRN (23:47)
[2018-01-09] VITALS (41 sets, daily range): BP systolic 95–161; BP diastolic 48–89; PULSE 106–127; TEMP 36.8–37.3; O2SAT 90–99
[2018-01-09] MEDS: CEFAZOLIN IV 2,000 MG in SYRINGE 0 ML IV SCH (03:18)
[2018-01-09] MEDS ORDERED: NURSING DECISION MEDICATION ORDER SCH (04:00)
[2018-01-09] MEDS ORDERED: COUGH DROP (SUGAR FREE) LOZ 24 LOZ/1 BOX LOZ ONE (04:04)
[2018-01-09 04:18] LABS: BASO % 0.1 %; BASO ABS # 0.01 K/uL (0-0.2); EOS % 0.1 %; EOS ABS # 0.01 K/uL (0-0.5); HEMOGLOBIN 8.7 g/dL (12.0-16.0); IG# 0.05 K/uL (0.00-0.02); LYMPH % 13.6 %; LYMPH ABS # 1.52 K/uL (1.2-3.4); MEAN CELL VOLUME 78.9 fL (80-100); MEAN CORPUSCULAR HEMOGLOBIN 27.4 pg (25-34); MEAN CORPUSCULAR HGB CONC 34.8 g/dl (32-36); MEAN PLATELET VOLUME 8.4 fL (7.4-10.4); MONO % 11.8 %; MONO ABS # 1.32 K/uL (0.11-0.59); PLATELET COUNT 148 K/uL (130-400); RED CELL DISTRIBUTION WIDTH SD 55.2 fL (36.4-46.3); WHITE BLOOD COUNT 11.21 K/uL (4.8-10.8)
[2018-01-09] MEDS ORDERED: COUGH DROP (SUGAR FREE) LOZ 24 LOZ/1 BOX LOZ PRN (04:30)
[2018-01-09 04:50] LABS: ALBUMIN 3.2 gm/dl (3.4-5.0); ALT/SGPT 23 U/L (12-78); AST/SGOT 22 U/L (15-37); BLOOD UREA NITROGEN 16 mg/dl (7-18); CARBON DIOXIDE 26 mmol/L (21-32); CREATININE 0.93 mg/dl (0.60-1.20); GLUCOSE 152 mg/dl (70-99); POTASSIUM 3.5 mmol/L (3.5-5.1); SODIUM 137 mmol/L (136-145)
[2018-01-09 04:55] LABS: ALKALINE PHOSPHATASE 35 U/L (45-117); PHOSPHORUS 3.2 mg/dl (2.5-4.9); TOTAL PROTEIN 5.5 gm/dl (6.4-8.2)
[2018-01-09] MEDS ORDERED: TRAZODONE HCL 50 MG TAB PO PRN (05:45)
[2018-01-09] MEDS: LEVOTHYROXINE 100 MCG TAB PO SCH (05:55)
[2018-01-09] MEDS: MAGNESIUM OXIDE 400 MG TAB PO SCH ×3 (05:55→13:22)
[2018-01-09] MEDS: POTASSIUM CHLORIDE 20 MEQ TABCR PO SCH ×2 (05:56→08:46)
[2018-01-09] MEDS ORDERED: DC PCA ONE (06:00)
[2018-01-09] MEDS: INSULIN ASPART 100 UNITS/ML 3 ML PEN SC SCH ×4 (06:45→21:00)
[2018-01-09] MEDS: HYDROmorphone INJ 0.5 MG/0.5 ML SYR IV PRN ×4 (07:04→23:46)
--- NOTE | 2018-01-09 07:39 | Clinical Documentation Query ---
DAYANA Salomon : CLINICAL DOCUMENTATION QUERY Patient is a 72 year old female admitted to undergo removal of prior lumbar instrumentation, thoracosacral fusion, interbody fusion. BMI noted to be 45.3 kg/m*m. In order to capture this clinical information, an associated clinical diagnosis must be explicitly documented by the provider. As appropriate, consider documentation as suggested below. Thank you. In your clinical opinion is this patient being managed for: ( x) Morbid obesity, BMI 45.3 kg/m*m ( ) Not Agree ( ) Other explanation of clinical findings (Please Explain) ( ) Unable to determine (Please Define) ( ) Need to Discuss The medical record reflects the following clinical findings, treatment, and risk factors. Clinical Indicators: As above Treatment: Carb counting Risk Factors: Caloric intake >> Caloric expenditure Please clarify and document your clinical opinion in the progress notes and discharge summary. Terms such as "probable", "suspected", "likely", "questionable", "possible", or "still to be ruled out" are acceptable. IF IN AGREEMENT, YOU MUST DOCUMENT ABOVE DIAGNOSTIC STATEMENT IN DAILY PROGRESS NOTES AND DISCHARGE SUMMARY. This document is not part of the patient's record. Thank You, Ben Prajapati, RN [phone]
[2018-01-09 08:28] LABS: HEMATOCRIT 24.9 % (37-47); HEMOGLOBIN 8.5 g/dL (12.0-16.0)
[2018-01-09] MEDS: SODIUM CHLORIDE 0.9% 1000ML 1,000 ML IV SCH ×2 (08:36→10:30)
[2018-01-09] MEDS: BUDESONIDE/FORMOTEROL FUMARATE 160/4.5 60 PUFFS/INHALER INH SCH ×2 (08:36→21:00)
[2018-01-09] MEDS: ALBUTEROL HFA INHALER 8.5 GM INH PRN (08:36)
[2018-01-09] MEDS: FLUTICASONE PROPIONATE NA SPR 16 GM BTL NAE SCH (08:36)
[2018-01-09] MEDS ORDERED: CYCLOBENZAPRINE HCL 5 MG TAB PO PRN (08:45)
[2018-01-09] MEDS: ASCORBIC ACID 500 MG TAB PO SCH (08:45)
[2018-01-09] MEDS: FERROUS SULFATE 325 MG TAB PO SCH (08:46)
[2018-01-09] MEDS: HYDROCHLOROTHIAZIDE 25 MG TAB PO SCH (08:46)
[2018-01-09] MEDS: PANTOprazole SOD 40 MG TAB PO SCH (08:46)
[2018-01-09] MEDS: DULOXETINE HCL 60 MG CAP PO SCH (08:46)
[2018-01-09] MEDS ORDERED: ASPIRIN 81 MG ECTAB PO SCH (09:00)
[2018-01-09] MEDS ORDERED: LISINOPRIL 20 MG TAB PO SCH (09:00)
--- NOTE | 2018-01-09 09:06 | Progress Note ---
Progress Note Date of Service Jan 09, 2018. Progress Note Patient is status post thoracal lumbar decompression fusion. Today she states she has some mid thoracic back spasms. She states her leg symptoms are improved. She is overall comfortable at this time. She denies any chest pain during her discussion this morning. On exam she is sitting up in bed has excellent strength testing bilateral lower extremities. Assessment status post thoracolumbar fusion. Plan at this time we will await medicines guidance regarding transition to the orthopedic floor.
[2018-01-09] MEDS ORDERED: INSULIN GLARGINE SOLOSTAR 100 UNITS/ML 3 ML PEN SC ONE ×3 (10:15→21:00)
[2018-01-09] MEDS ORDERED: PHARMACY GLYCEMIC MGMT CONSULT PRN ×2 (10:15→14:15)
[2018-01-09 12:02] LABS: HEMATOCRIT 24.8 % (37-47); HEMOGLOBIN 8.5 g/dL (12.0-16.0)
--- NOTE | 2018-01-09 12:08 | Hospitalist Progress Note ---
Hospitalist Progress Note Date of Service Jan 09, 2018. Subjective Pt evaluation today including: conversation w/ patient, physical exam, chart review, lab review, review of studies, review of inpatient medication list Patient seen and evaluated. Hemoglobin is stabilizing and patient reporting feeling well. Vital signs stable. Having back spasms but pain is otherwise controlled. No further chest pain or discomfort. Tolerating diet so far. Feels as though she has some phlegm in her throat that she is having difficulty coughing up due to limitations with back pain She is a little forgetful but mentation is appropriate. 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 up on her Constitutional: No fever, No chills, No weakness, No fatigue ENT: + problem reported (weak cough - feeling of phlegm in throat), No nasal symptoms, No sore throat, No trouble swallowing Respiratory: + cough, No sputum, No shortness of breath Cardiovascular: No chest pain Abdomen: No pain, No nausea, No vomiting, No diarrhea, No constipation Musculoskeletal: + problem reported (back pain from muscle spasm), No calf pain Female : No dysuria Medications Current Inpatient Medications Medications (Trade) Dose Ordered Sig/Tung Route Start Time Stop Time Status Last Admin Dose Admin Promethazine HCl 12.5 mg/Sodium Chloride 50.5 ml @ 202 mls/hr Q6H PRN IV 01/08/18 11:15 02/07/18 11:14 Ondansetron HCl (Zofran Inj) 4 mg Q6H PRN IV 01/08/18 11:15 02/07/18 11:14 Metoclopramide HCl (Reglan Inj) 10 mg Q6H PRN IV 01/08/18 11:15 02/07/18 11:14 Lorazepam (Ativan Tab) 0.5 mg Q8H PRN PO 01/08/18 11:15 02/07/18 11:14 Lorazepam 0.5 mg/ Syringe 1 ml @ 1 mls/min Q8H PRN IV 01/08/18 11:15 02/07/18 11:14 Pneumococcal Polysaccharide Vaccine 1 ea PRN PRN N/A 01/08/18 11:15 02/07/18 11:14 Influenza Virus Vacc Triv Types A&B 1 ea PRN PRN N/A 01/08/18 11:15 02/07/18 11:14 Polyethylene (Miralax Powder Packet) 17 gm Q6 PO 01/10/18 06:00 02/09/18 05:59 Bisacodyl (Dulcolax Supp) 10 mg DAILY PRN [place] 01/08/18 11:15 02/07/18 11:14 Magnesium Hydroxide (Milk Of Magnesia Susp) 30 ml DAILY PRN PO 01/08/18 11:15 02/07/18 11:14 Hydromorphone HCl (Dilaudid Inj) 0.5 mg Q3H PRN IV 01/09/18 06:00 01/23/18 05:59 01/09/18 07:04 0.5 MG Oxycodone HCl (Roxicodone Immediate Rel Tab) 5-10mg prn moderate to sev... Q4H PRN PO 01/09/18 06:00 01/23/18 05:59 Sodium Chloride 1,000 ml @ 150 mls/hr Q6H40M IV 01/08/18 14:30 02/07/18 14:29 01/09/18 10:30 150 MLS/HR Acetaminophen (Tylenol Tab) 1,000 mg Q8H PRN PO 01/08/18 11:15 02/07/18 11:14 Acetaminophen 100 ml @ 400 mls/hr Q8H PRN IV 01/08/18 11:15 02/07/18 11:14 Naloxone HCl (Narcan Inj) 0.1 mg Q5M PRN IV 01/08/18 11:15 02/07/18 11:14 Senna/Docusate Sodium (Senokot S Tab) 2 tab HS PO 01/08/18 21:00 02/07/18 20:59 01/08/18 21:09 2 TAB Sodium Biphosphate/ Sodium Phosphate (Fleet Enema) 132 ml ONE PRN [place] 01/08/18 11:15 02/07/18 11:14 Hydroxyzine HCl (Vistaril Tab) 25 mg Q8H PRN PO 01/08/18 11:15 02/07/18 11:14 Al Hydroxide/Mg Hydroxide (Maalox Susp) 30 ml Q6H PRN PO 01/08/18 11:15 02/07/18 11:14 Famotidine (Pepcid Tab) 20 mg Q12 PRN PO 01/08/18 11:15 02/07/18 11:14 Diphenhydramine HCl (Benadryl Cap) 25 mg Q6H PRN PO 01/08/18 11:15 02/07/18 11:14 01/09/18 01:59 25 MG Budesonide/ Formoterol Fumarate (Symbicort 160/ 4.5 Inh) 2 puffs BID INH 01/08/18 21:00 02/07/18 20:59 01/09/18 08:36 2 PUFFS Bupropion HCl (Wellbutrin Tab) 100 mg BID PO 01/08/18 21:00 02/07/18 20:59 01/09/18 08:47 100 MG Donepezil HCl (Aricept Tab) 10 mg HS PO 01/08/18 21:00 02/07/18 20:59 01/08/18 21:08 10 MG Duloxetine HCl (Cymbalta Cap) 30 mg HS PO 01/08/18 21:00 02/07/18 20:59 01/08/18 21:08 30 MG Duloxetine HCl (Cymbalta Cap) 60 mg QAM PO 01/09/18 09:00 02/08/18 08:59 01/09/18 08:46 60 MG Fluticasone Propionate (Flonase Nasal Lutsen) 2 sprays QAM YUDY 01/09/18 09:00 02/08/18 08:59 01/09/18 08:36 2 SPRAYS Hydrochlorothiazide (Hydrochlorothiazide Tab) 25 mg QAM PO 01/09/18 09:00 02/08/18 08:59 01/09/18 08:46 25 MG Lamotrigine (Lamictal Tab) 150 mg HS PO 01/08/18 21:00 02/07/18 20:59 01/08/18 21:09 150 MG Levothyroxine Sodium (Synthroid Tab) 100 mcg DAILYBB PO 01/09/18 06:00 02/08/18 05:59 01/09/18 05:55 100 MCG Miscellaneous Information (Order Awaiting Action) 1 ea QS N/A 01/08/18 16:00 02/07/18 15:59 Pantoprazole Sodium (Protonix Tab) 40 mg QAM PO 01/09/18 09:00 02/08/18 08:59 01/09/18 08:46 40 MG Hydromorphone HCl (Dilaudid Inj) 1 mg Q3H PRN IV 01/08/18 14:30 01/22/18 14:29 Future hold Insulin Aspart (novoLOG ASPART) SLIDING SCALE If C... ACHS SC 01/08/18 16:15 02/07/18 16:14 01/08/18 18:53 1 UNITS Glucose (Glucose 40% Gel) 15-30 GRAMS 15 GRAMS... UD PRN PO 01/08/18 16:15 02/07/18 16:14 Glucose (Glucose Chew Tab) 4-8 Tablets 4 Tabl... UD PRN PO 01/08/18 16:15 02/07/18 16:14 Dextrose (Dextrose 50% 50ML Syringe) 25-50ML OF 50% DW IV FOR... UD PRN IV 01/08/18 16:15 02/07/18 16:14 Glucagon (Glucagon Inj) 1 mg UD PRN SQ 01/08/18 16:15 02/07/18 16:14 Ascorbic Acid (Vitamin C Tab) 500 mg QAM PO 01/09/18 09:00 02/08/18 08:59 01/09/18 08:45 500 MG Ferrous Sulfate (Feosol Tab) 325 mg QAM PO 01/09/18 09:00 02/08/18 08:59 01/09/18 08:46 325 MG Albuterol (Proair Hfa) 2 puffs Q4 PRN INH 01/08/18 23:30 02/07/18 23:29 01/09/18 08:36 2 PUFFS Menthol (Nice Joy) 1 joy PRN PRN JOY 01/09/18 04:30 02/08/18 04:29 Magnesium Oxide (Mag-Ox Tab) 400 mg Q4H PO 01/09/18 05:15 01/09/18 13:16 01/09/18 08:46 400 MG Trazodone HCl (Desyrel Tab) 50 mg HS PRN PO 01/09/18 05:45 02/08/18 05:44 Cyclobenzaprine HCl (Flexeril Tab) 5 mg TID PRN PO 01/09/18 08:45 02/08/18 08:44 01/09/18 09:42 5 MG Miscellaneous Information (Consult Glycemic Management Pharmacy) 1 ea UD PRN N/A 01/09/18 10:15 02/08/18 10:14 Aspirin (Ecotrin Tab) 81 mg QAM PO 01/09/18 12:00 02/08/18 11:59 Calcium/Vitamin D (Caltrate Plus Tab) 1 tab BID PO 01/09/18 12:00 02/08/18 11:59 Cholecalciferol (Vitamin D Tab) 1,000 inter.unit QAM PO 01/09/18 12:00 02/08/18 11:59 Simvastatin (Zocor Tab) 20 mg HS PO 01/09/18 21:00 02/08/18 20:59 EZETIMIBE (Zetia Tab) 10 mg HS PO 01/09/18 21:00 02/08/18 20:59 Folic Acid (Folvite Tab) 800 mcg QAM PO 01/09/18 12:00 02/08/18 11:59 Lisinopril (Zestril Tab) 20 mg QAM PO 01/09/18 12:00 02/08/18 11:59 Miscellaneous Information (Order Awaiting Action) 1 ea QS N/A 01/09/18 16:00 02/08/18 15:59 Montelukast Sodium (Singulair Tab) 10 mg HS PO 01/09/18 21:00 02/08/18 20:59 Multivitamins/ Minerals (Multivitamin W/ Minerals Tab) 1 tab QAM PO 01/09/18 12:00 02/08/18 11:59 [id number] Acetate (Vitamin E Cap) 400 interunit HS PO 01/09/18 21:00 02/08/18 20:59 Objective Vital Signs Date Time Temp Pulse Resp B/P (MAP) Pulse Ox O2 Delivery O2 Flow Rate FiO2 01/09/18 11:30 Nasal Cannula 2.0 01/09/18 11:30 37.0 112 20 140/66 (90) 96 Nasal Cannula 2.0 01/09/18 10:46 111 26 140/69 (92) 95 01/09/18 10:31 112 30 143/69 (93) 94 01/09/18 10:16 113 29 156/75 (102) 90 01/09/18 10:01 123 19 134/85 (101) 01/09/18 10:00 125 13 01/09/18 09:57 127 15 108/80 (89) 01/09/18 09:51 118 20 150/72 (98) 95 01/09/18 09:47 117 18 161/67 (98) 96 01/09/18 09:32 116 13 124/65 (84) 01/09/18 09:17 117 24 148/58 (88) 01/09/18 09:16 37.1 113 20 158/84 (108) 96 Nasal Cannula 3.0 01/09/18 09:03 114 17 158/84 (108) 98 01/09/18 09:00 115 17 98 01/09/18 08:47 115 19 153/48 (83) 97 01/09/18 08:00 119 21 95 01/09/18 07:46 118 20 130/89 (103) 95 01/09/18 07:32 116 10 114/65 (81) 97 01/09/18 07:30 Nasal Cannula 3.0 01/09/18 07:30 37.1 116 16 131/70 (90) 96 Nasal Cannula 3.0 01/09/18 07:16 116 15 131/70 (90) 94 01/09/18 07:01 111 21 143/62 (89) 92 01/09/18 07:00 117 17 94 01/09/18 06:16 115 10 95/63 (74) 99 01/09/18 06:02 114 15 103/75 (84) 94 01/09/18 05:46 114 17 149/71 (97) 93 01/09/18 05:31 113 19 138/69 (92) 94 01/09/18 05:16 113 18 138/60 (86) 93 01/09/18 05:01 115 12 136/71 (92) 93 01/09/18 04:46 114 16 139/60 (86) 98 01/09/18 04:31 117 19 130/57 (81) 94 01/09/18 04:16 113 14 146/65 (92) 90 01/09/18 04:00 Nasal Cannula 3.0 01/09/18 03:46 37.1 114 15 159/71 (100) 98 Nasal Cannula 3.0 01/09/18 03:09 36.9 114 19 147/69 96 3.0 01/09/18 02:07 36.9 109 16 154/76 94 3.0 01/09/18 01:09 37.3 109 16 154/70 95 01/09/18 00:54 37.1 109 17 145/69 93 01/09/18 00:00 95 Nasal Cannula 3.0 01/08/18 23:47 103 15 126/73 (90) 95 01/08/18 23:45 37.0 103 13 95 01/08/18 23:32 108 20 94/63 (73) 92 3.0 01/08/18 23:30 97 15 96 01/08/18 23:16 103 13 129/69 (89) 96 01/08/18 23:15 36.9 104 16 96 3.0 01/08/18 23:02 107 14 126/79 (95) 96 01/08/18 23:00 99 16 97 01/08/18 22:30 37.1 97 24 105/62 92 3.0 01/08/18 22:15 37.1 95 16 126/74 96 3.0 01/08/18 22:00 98 16 104/60 (75) 97 Nasal Cannula 3.0 01/08/18 21:43 96 16 108/67 (81) 95 Nasal Cannula 3.0 01/08/18 20:30 36.8 95 16 131/66 96 01/08/18 20:00 36.8 94 16 136/72 (93) 96 Nasal Cannula 3.0 01/08/18 20:00 96 Nasal Cannula 3.0 01/08/18 20:00 36.8 94 16 136/72 96 3.0 01/08/18 19:00 36.5 96 18 138/82 96 3.0 01/08/18 18:45 36.5 100 18 119/59 98 3.0 01/08/18 18:29 36.5 97 16 133/67 96 3.0 01/08/18 18:00 36.5 100 20 136/67 (90) 96 Nasal Cannula 3.0 01/08/18 17:54 36.5 120 21 133/67 (89) 97 Nasal Cannula 3.0 01/08/18 16:54 36.5 103 20 125/62 99 3.0 01/08/18 16:54 36.5 96 18 99/63 98 3.0 01/08/18 16:30 99 Nasal Cannula 3.0 01/08/18 16:24 36.5 104 18 92/57 99 3.0 01/08/18 16:04 36.8 100 18 122/76 98 01/08/18 14:45 94 18 99/67 (78) 98 Nasal Cannula 2.0 01/08/18 14:15 100 Nasal Cannula 2.0 01/08/18 14:15 36.5 98 20 90/61 (71) 100 Nasal Cannula 2.0 01/08/18 14:00 101 14 104/62 100 Nasal Cannula 4 01/08/18 13:45 93 16 93/58 97 Nasal Cannula 4 01/08/18 13:30 93 16 102/56 100 Nasal Cannula 4 01/08/18 13:25 93 16 95/52 100 Nasal Cannula 4 01/08/18 13:10 93 16 101/58 99 Nasal Cannula 4 01/08/18 12:55 90 13 97/56 99 Nasal Cannula 4 01/08/18 12:45 36.2 91 13 82/55 99 Nasal Cannula 4 01/08/18 12:35 97 12 111/65 99 Nasal Cannula 4 01/08/18 12:25 92 12 110/59 100 Nasal Cannula 4 01/08/18 12:15 98 12 78/51 98 Nasal Cannula 4 Physical Exam General Appearance: WD/WN, no apparent distress, + obese Eyes: sclerae normal ENT: hearing grossly normal Neck: supple, no JVD, trachea midline Respiratory/Chest: lungs clear, normal breath sounds, no respiratory distress, no accessory muscle use Cardiovascular: regular rate, rhythm, no gallop, no murmur Abdomen: normal bowel sounds, non tender, soft Extremities: no pedal edema, no calf tenderness, + pertinent finding (SHADIA drain in back with bloody drainage) Neurologic/Psychiatric: alert, oriented x 3 Skin: normal color, warm/dry Laboratory Results Last 24 Hours Test 01/08/18 15:36 01/08/18 16:20 01/08/18 20:59 01/08/18 21:33 Hemoglobin 8.5 g/dL 10.4 g/dL Hematocrit 25.3 % 31.3 % Troponin I < 0.015 ng/ml Prothrombin Time 12.0 SECONDS Prothromb Time International Ratio 1.1 Activated Partial Thromboplast Time 22.8 SECONDS Partial Thromboplastin Ratio 0.9 Fibrinogen 117 mg/dl Sodium Level 135 mmol/L Potassium Level 4.0 mmol/L Chloride Level 100 mmol/L Carbon Dioxide Level 27 mmol/L Anion Gap 8.0 mmol/L Blood Urea Nitrogen 14 mg/dl Creatinine 0.87 mg/dl Est Creatinine Clear Calc Drug Dose 58.1 ml/min Estimated GFR () 78.2 Estimated GFR (Non- 67.5 BUN/Creatinine Ratio 16.0 Random Glucose 208 mg/dl Calcium Level 8.5 mg/dl Total Bilirubin 0.8 mg/dl Aspartate Amino Transf (AST/SGOT) 20 U/L Alanine Aminotransferase (ALT/SGPT) 22 U/L Alkaline Phosphatase 26 U/L Total Protein 5.1 gm/dl Albumin 3.3 gm/dl Globulin 1.8 gm/dl Albumin/Globulin Ratio 1.8 Bedside Glucose 159 mg/dl Test 01/09/18 04:00 01/09/18 08:16 01/09/18 11:53 White Blood Count 11.21 K/uL Red Blood Count 3.17 M/uL Hemoglobin 8.7 g/dL 8.5 g/dL 8.5 g/dL Hematocrit 25.0 % 24.9 % 24.8 % Mean Corpuscular Volume 78.9 fL Mean Corpuscular Hemoglobin 27.4 pg Mean Corpuscular Hemoglobin Concent 34.8 g/dl Platelet Count 148 K/uL Mean Platelet Volume 8.4 fL Neutrophils (%) (Auto) 74.0 % Lymphocytes (%) (Auto) 13.6 % Monocytes (%) (Auto) 11.8 % Eosinophils (%) (Auto) 0.1 % Basophils (%) (Auto) 0.1 % Neutrophils # (Auto) 8.30 K/uL Lymphocytes # (Auto) 1.52 K/uL Monocytes # (Auto) 1.32 K/uL Eosinophils # (Auto) 0.01 K/uL Basophils # (Auto) 0.01 K/uL RDW Standard Deviation 55.2 fL RDW Coefficient of Variation 19.0 % Immature Granulocyte % (Auto) 0.4 % Immature Granulocyte # (Auto) 0.05 K/uL Red Blood Cell Morphology Unremarkable Sodium Level 137 mmol/L Potassium Level 3.5 mmol/L Chloride Level 101 mmol/L Carbon Dioxide Level 26 mmol/L Anion Gap 10.0 mmol/L Blood Urea Nitrogen 16 mg/dl Creatinine 0.93 mg/dl Est Creatinine Clear Calc Drug Dose 54.4 ml/min Estimated GFR () 72.2 Estimated GFR (Non- 62.3 BUN/Creatinine Ratio 17.7 Random Glucose 152 mg/dl Calcium Level 8.0 mg/dl Phosphorus Level 3.2 mg/dl Magnesium Level 1.4 mg/dl Total Bilirubin 0.7 mg/dl Aspartate Amino Transf (AST/SGOT) 22 U/L Alanine Aminotransferase (ALT/SGPT) 23 U/L Alkaline Phosphatase 35 U/L Troponin I < 0.015 ng/ml Total Protein 5.5 gm/dl Albumin 3.2 gm/dl Globulin 2.3 gm/dl Albumin/Globulin Ratio 1.4 Assessment and Plan Ms. Ritter is an acutely ill woman with large EBL of 1900 and chest pain here s/p decompression and fusion 01/08 Acute Blood Loss Anemia Post-Operatively S/P Decompression/Fusion on 01/08: - EBL 1900 mL - Transfused 4 units PRBCs, 2 FFP, and TXA x 2 doses - Hemoglobin sarbjit at 8.5 and asymptomatic from anemic standpoint; optimal for telemetry transfer - Will continue to monitor blood counts and transfuse when necessary -- No cardiac history and could defer transfusion until Hgb > 7 or symptomatic - Continue pain management regimen and encourage bowel regimen - Appreciate surgical intervention and input from Dr. Pantoja T2DM: - Glycemic management following - appreciate assistance and adjustments GERD: - Zantac 150 mg BID HTN: - HCTZ 25 mg daily and Lisinopril 20 mg daily Hypothyroidism: - Synthroid 100 mcg daily Depression: STABLE - Wellbutrin 100 mg BID and Cymbalta 60 mg AM and 30 mg HS Morbid Obesity - BMI 45.3: Noted Code Status: FULL RESUSCITATION Will continue to follow with primary team Continued [facility] stay due to: ambulation difficulties, multiple IV medications needed Discharge planning: uncertain
[2018-01-09] MEDS: OXYCODONE HCL IR 5 MG TAB (IMMEDIATE RELEASE) PO PRN ×2 (12:10→21:35)
--- NOTE | 2018-01-09 12:20 | Clinical Documentation Query ---
DAVID BAUER : CLINICAL DOCUMENTATION QUERY Patient is a 72 year old female admitted to undergo removal of prior lumbar instrumentation, thoracosacral fusion, interbody fusion. BMI noted to be 45.3 kg/m*m. In order to capture this clinical information, an associated clinical diagnosis must be explicitly documented by the provider. As appropriate, consider documentation as suggested below. Thank you. In your clinical opinion is this patient being managed for: ( x ) Morbid obesity, BMI 45.3 kg/m*m ( ) Not Agree ( ) Other explanation of clinical findings (Please Explain) ( ) Unable to determine (Please Define) ( ) Need to Discuss The medical record reflects the following clinical findings, treatment, and risk factors. Clinical Indicators: As above Treatment: Carb counting Risk Factors: Caloric intake >> Caloric expenditure Please clarify and document your clinical opinion in the progress notes and discharge summary. Terms such as "probable", "suspected", "likely", "questionable", "possible", or "still to be ruled out" are acceptable. IF IN AGREEMENT, YOU MUST DOCUMENT ABOVE DIAGNOSTIC STATEMENT IN DAILY PROGRESS NOTES AND DISCHARGE SUMMARY. This document is not part of the patient's record. Thank You, Ben Prajapati, RN [phone]
--- NOTE | 2018-01-09 12:27 | Pharmacy Progress Note ---
Glycemic Control Intl Consult Date of Service Jan 09, 2018. Scope Glycemic Pharmacist consulted by Dr Garcia on 01/09/18 for glycemic control and to write orders per [facility] inpatient glycemic control protocol Objective Weight (Kilograms): 94.100 Accuchecks BSG (last 24hrs): Test 01/08/18 16:20 01/08/18 20:59 01/09/18 04:00 Random Glucose 208 mg/dl (70-99) 152 mg/dl (70-99) Bedside Glucose 159 mg/dl (70-90) Laboratory Data (last 24hrs) Test 01/08/18 16:20 01/09/18 04:00 Anion Gap 8.0 mmol/L 10.0 mmol/L BUN/Creatinine Ratio 16.0 17.7 Blood Urea Nitrogen 14 mg/dl 16 mg/dl Creatinine 0.87 mg/dl 0.93 mg/dl Potassium Level 4.0 mmol/L 3.5 mmol/L Sodium Level 135 mmol/L 137 mmol/L White Blood Count 11.21 K/uL Red Blood Count 3.17 M/uL Hemoglobin 8.7 g/dL Hematocrit 25.0 % Mean Corpuscular Volume 78.9 fL Mean Corpuscular Hemoglobin 27.4 pg Mean Corpuscular Hemoglobin Concent 34.8 g/dl Platelet Count 148 K/uL Mean Platelet Volume 8.4 fL Neutrophils (%) (Auto) 74.0 % Lymphocytes (%) (Auto) 13.6 % Monocytes (%) (Auto) 11.8 % Eosinophils (%) (Auto) 0.1 % Basophils (%) (Auto) 0.1 % Neutrophils # (Auto) 8.30 K/uL Lymphocytes # (Auto) 1.52 K/uL Monocytes # (Auto) 1.32 K/uL Eosinophils # (Auto) 0.01 K/uL Basophils # (Auto) 0.01 K/uL Recent Pertinent Medications Outpatient Anti-diabetic Regimen: * Metformin 1 g po BID * A1c = 6.4 % on 12/19/17 The patient is currently receiving: * Correctional Insulin: Novolog Correction per scale ACHS Goal Range: Low 140 mg/dL - High 180 mg/dL Correction Factor: 25 mg/dL/unit Risk Factors for Insulin Resistance: * Steroids: Dexamethasone 12 mg IV x1 intra-op * Recent Surgery: POD 1 s/p spinal decompression and fusion w removal of hardward * Diet: Regular (changed to T2DM today) Assessment & Plan ASSESSMENT: * 72 yo F with T2DM well-controlled on oral agent alone as outpatient * Admitted for surgery, now s/p spinal decompression, fusion, and removal of hardware 01/08 * Transferred to ICU post-op 2nd anemia (likely acute blood loss in addition to chronic anemia) * BSG's ranging 152-230 mg/dL since surgery - improved glycemic control desired. Would prefer all BSG's to be less than 150 mg/dL in recent post-op patient to promote post-op healing and prevent infection * Expect insulin resistance 2nd dexamethasone administered in OR * Will initiate Lantus at ~ 0.3 units/kg (slightly less than full daily dose of weight-based moderate stress). Additional lower-dose Lantus tonight for any BSG above 140 mg/dL * Will adjust Novolog based on anticipated insulin resistance and add CHO ratio (as steroid-induced hyperglycemia is best managed with aggressive prandial insulin) * One overnight check as pt had one BSG above 180 mg/dL today PLAN FOR INPATIENT GLYCEMIC CONTROL: * Holding outpatient oral diabetes medications * Add Basal insulin with LANTUS 25 units SQ x1 now. Additional Lantus tonight if BSG's > 140 mg/dL * Correctional Insulin with NOVOLOG per scale ACHS or Q6hrs while NPO - one overnight check as well * Decrease Goal Range: Low 120 mg/dL - High 160 mg/dL * Tighten Correction Factor: 20 mg/dL/unit * Add Nutritional / Prandial insulin per carb ratio of 1 unit per 7 grams CHO consumed * Please note that the plan above was derived based on current level of insulin resistance and hospital stress. These recommendations are appropriate for inpatient admission only. Plan of care upon discharge will need to be reassessed to avoid potential outpatient hypo/hyperglycemia. Thank you.
--- NOTE | 2018-01-09 12:55 | Anesthesiology Progress Note ---
Anesthesia Post Op Note Date & Time Jan 09, 2018 at 12:54 Vital Signs Pain Intensity: 9.0 Vital Signs Past 12 Hours Date Time Temp Pulse Resp B/P (MAP) Pulse Ox O2 Delivery O2 Flow Rate FiO2 01/09/18 11:30 Nasal Cannula 2.0 01/09/18 11:30 37.0 112 20 140/66 (90) 96 Nasal Cannula 2.0 01/09/18 10:46 111 26 140/69 (92) 95 01/09/18 10:31 112 30 143/69 (93) 94 01/09/18 10:16 113 29 156/75 (102) 90 01/09/18 10:01 123 19 134/85 (101) 01/09/18 10:00 125 13 01/09/18 09:57 127 15 108/80 (89) 01/09/18 09:51 118 20 150/72 (98) 95 01/09/18 09:47 117 18 161/67 (98) 96 01/09/18 09:32 116 13 124/65 (84) 01/09/18 09:17 117 24 148/58 (88) 01/09/18 09:16 37.1 113 20 158/84 (108) 96 Nasal Cannula 3.0 01/09/18 09:03 114 17 158/84 (108) 98 01/09/18 09:00 115 17 98 01/09/18 08:47 115 19 153/48 (83) 97 01/09/18 08:00 119 21 95 01/09/18 07:46 118 20 130/89 (103) 95 01/09/18 07:32 116 10 114/65 (81) 97 01/09/18 07:30 Nasal Cannula 3.0 01/09/18 07:30 37.1 116 16 131/70 (90) 96 Nasal Cannula 3.0 01/09/18 07:16 116 15 131/70 (90) 94 01/09/18 07:01 111 21 143/62 (89) 92 01/09/18 07:00 117 17 94 01/09/18 06:16 115 10 95/63 (74) 99 01/09/18 06:02 114 15 103/75 (84) 94 01/09/18 05:46 114 17 149/71 (97) 93 01/09/18 05:31 113 19 138/69 (92) 94 01/09/18 05:16 113 18 138/60 (86) 93 01/09/18 05:01 115 12 136/71 (92) 93 01/09/18 04:46 114 16 139/60 (86) 98 01/09/18 04:31 117 19 130/57 (81) 94 01/09/18 04:16 113 14 146/65 (92) 90 01/09/18 04:00 Nasal Cannula 3.0 01/09/18 03:46 37.1 114 15 159/71 (100) 98 Nasal Cannula 3.0 01/09/18 03:09 36.9 114 19 147/69 96 3.0 01/09/18 02:07 36.9 109 16 154/76 94 3.0 01/09/18 01:09 37.3 109 16 154/70 95 Notes Mental Status: alert / awake / arousable, participated in evaluation Pt Amnestic to Procedure: Yes Nausea / Vomiting: adequately controlled Pain: adequately controlled Airway Patency, RR, SpO2: stable & adequate BP & HR: stable & adequate Hydration State: stable & adequate Anesthetic Complications: no major complications apparent
[2018-01-09] MEDS: LISINOPRIL 20 MG TAB PO SCH (13:22)
[2018-01-09] MEDS: FoLIC ACID TAB 400 MCG TAB PO SCH (13:22)
[2018-01-09] MEDS: CHOLECALCIFEROL 1000 INTER.UNIT TAB PO SCH (13:22)
[2018-01-09] MEDS: CEROVITE ADV FORMULA TAB PO SCH (13:22)
[2018-01-09] MEDS: ASPIRIN 81 MG ECTAB PO SCH (13:23)
[2018-01-09] MEDS: CALCIUM 600MG + VIT D 400 IU TAB PO SCH ×2 (13:23→21:00)
--- NOTE | 2018-01-09 14:07 | Critical Care Progress Note ---
Critical Care Progress Note Date of Service Jan 09, 2018. ICU Day ICU Day Number: 2, postoperative day [address] Garcia Subjective Pain well-controlled with the exception of some back spasms. No chest pain or shortness of breath Objective General: Alert. nontoxic. Skin: Warm, dry, Head: Atraumatic Ears, nose, mouth and throat: airway patent Cardiovascular: Normal peripheral perfusion Respiratory: no respiratory distress Gastrointestinal: Non distended Musculoskeletal: No deformity Assessment & Plan PLAN: Neuro: Pain control -Pain control per orthopedics Resp: Supplemental oxygen as needed CV: Chest discomfort -Resolved, troponins negative Fluids/Renal: Discontinue maintenance fluids ID: Postoperative antibiotics per orthopedic surgery -Monitor fever curve GI/Nutrition: Regular diet per orthopedics Heme: Acute blood loss anemia on the setting of chronic anemia since 2013 -Patient received 4 units packed red blood cells -TXA 1 g 2 -2 units FFP -Hemoglobin and hematocrit now appear to be stable -Would consider Feosol and vitamin C in the morning Endocrine: Blood sugars per ICU hyperglycemia protocol -Glycemic consult secondary to intraoperative steroids and likely rebound hyperglycemia -Holding metformin Restart home meds with the exception of Celebrex and hydrochlorothiazide Stable for downgrade out of the ICU will transfer to telemetry CODE STATUS: Full Data Medications: Current Inpatient Medications Medications (Trade) Dose Ordered Sig/Tung Route Start Time Stop Time Status Last Admin Dose Admin Promethazine HCl 12.5 mg/Sodium Chloride 50.5 ml @ 202 mls/hr Q6H PRN IV 01/08/18 11:15 02/07/18 11:14 Ondansetron HCl (Zofran Inj) 4 mg Q6H PRN IV 01/08/18 11:15 02/07/18 11:14 Metoclopramide HCl (Reglan Inj) 10 mg Q6H PRN IV 01/08/18 11:15 02/07/18 11:14 Lorazepam (Ativan Tab) 0.5 mg Q8H PRN PO 01/08/18 11:15 02/07/18 11:14 Lorazepam 0.5 mg/ Syringe 1 ml @ 1 mls/min Q8H PRN IV 01/08/18 11:15 02/07/18 11:14 Pneumococcal Polysaccharide Vaccine 1 ea PRN PRN N/A 01/08/18 11:15 02/07/18 11:14 Influenza Virus Vacc Triv Types A&B 1 ea PRN PRN N/A 01/08/18 11:15 02/07/18 11:14 Polyethylene (Miralax Powder Packet) 17 gm Q6 PO 01/10/18 06:00 02/09/18 05:59 Bisacodyl (Dulcolax Supp) 10 mg DAILY PRN AL 01/08/18 11:15 02/07/18 11:14 Magnesium Hydroxide (Milk Of Magnesia Susp) 30 ml DAILY PRN PO 01/08/18 11:15 02/07/18 11:14 Hydromorphone HCl (Dilaudid Inj) 0.5 mg Q3H PRN IV 01/09/18 06:00 01/23/18 05:59 01/09/18 13:34 0.5 MG Oxycodone HCl (Roxicodone Immediate Rel Tab) 5-10mg prn moderate to sev... Q4H PRN PO 01/09/18 06:00 01/23/18 05:59 01/09/18 12:10 10 MG Sodium Chloride 1,000 ml @ 150 mls/hr Q6H40M IV 01/08/18 14:30 02/07/18 14:29 01/09/18 10:30 150 MLS/HR Acetaminophen (Tylenol Tab) 1,000 mg Q8H PRN PO 01/08/18 11:15 02/07/18 11:14 Acetaminophen 100 ml @ 400 mls/hr Q8H PRN IV 01/08/18 11:15 02/07/18 11:14 Naloxone HCl (Narcan Inj) 0.1 mg Q5M PRN IV 01/08/18 11:15 02/07/18 11:14 Senna/Docusate Sodium (Senokot S Tab) 2 tab HS PO 01/08/18 21:00 02/07/18 20:59 01/08/18 21:09 2 TAB Sodium Biphosphate/ Sodium Phosphate (Fleet Enema) 132 ml ONE PRN AL 01/08/18 11:15 02/07/18 11:14 Hydroxyzine HCl (Vistaril Tab) 25 mg Q8H PRN PO 01/08/18 11:15 02/07/18 11:14 Al Hydroxide/Mg Hydroxide (Maalox Susp) 30 ml Q6H PRN PO 01/08/18 11:15 02/07/18 11:14 Famotidine (Pepcid Tab) 20 mg Q12 PRN PO 01/08/18 11:15 02/07/18 11:14 Diphenhydramine HCl (Benadryl Cap) 25 mg Q6H PRN PO 01/08/18 11:15 02/07/18 11:14 01/09/18 01:59 25 MG Budesonide/ Formoterol Fumarate (Symbicort 160/ 4.5 Inh) 2 puffs BID INH 01/08/18 21:00 02/07/18 20:59 01/09/18 08:36 2 PUFFS Bupropion HCl (Wellbutrin Tab) 100 mg BID PO 01/08/18 21:00 02/07/18 20:59 01/09/18 08:47 100 MG Donepezil HCl (Aricept Tab) 10 mg HS PO 01/08/18 21:00 02/07/18 20:59 01/08/18 21:08 10 MG Duloxetine HCl (Cymbalta Cap) 30 mg HS PO 01/08/18 21:00 02/07/18 20:59 01/08/18 21:08 30 MG Duloxetine HCl (Cymbalta Cap) 60 mg QAM PO 01/09/18 09:00 02/08/18 08:59 01/09/18 08:46 60 MG Fluticasone Propionate (Flonase Nasal [place]) 2 sprays QAM YUDY 01/09/18 09:00 02/08/18 08:59 01/09/18 08:36 2 SPRAYS Hydrochlorothiazide (Hydrochlorothiazide Tab) 25 mg QAM PO 01/09/18 09:00 02/08/18 08:59 01/09/18 08:46 25 MG Lamotrigine (Lamictal Tab) 150 mg HS PO 01/08/18 21:00 02/07/18 20:59 01/08/18 21:09 150 MG Levothyroxine Sodium (Synthroid Tab) 100 mcg DAILYBB PO 01/09/18 06:00 02/08/18 05:59 01/09/18 05:55 100 MCG Miscellaneous Information (Order Awaiting Action) 1 ea QS N/A 01/08/18 16:00 4/26/18 15:59 Pantoprazole Sodium (Protonix Tab) 40 mg QAM PO 01/09/18 09:00 02/08/18 08:59 01/09/18 08:46 40 MG Hydromorphone HCl (Dilaudid Inj) 1 mg Q3H PRN IV 01/08/18 14:30 01/22/18 14:29 Future hold Insulin Aspart (novoLOG ASPART) SLIDING SCALE If C... ACHS SC 01/08/18 16:15 02/07/18 16:14 01/09/18 12:14 12 UNITS Glucose (Glucose 40% Gel) 15-30 GRAMS 15 GRAMS... UD PRN PO 01/08/18 16:15 02/07/18 16:14 Glucose (Glucose Chew Tab) 4-8 Tablets 4 Tabl... UD PRN PO 01/08/18 16:15 02/07/18 16:14 Dextrose (Dextrose 50% 50ML Syringe) 25-50ML OF 50% DW IV FOR... UD PRN IV 01/08/18 16:15 02/07/18 16:14 Glucagon (Glucagon Inj) 1 mg UD PRN SQ 01/08/18 16:15 02/07/18 16:14 Ascorbic Acid (Vitamin C Tab) 500 mg QAM PO 01/09/18 09:00 02/08/18 08:59 01/09/18 08:45 500 MG Ferrous Sulfate (Feosol Tab) 325 mg QAM PO 01/09/18 09:00 02/08/18 08:59 01/09/18 08:46 325 MG Albuterol (Proair Hfa) 2 puffs Q4 PRN INH 01/08/18 23:30 02/07/18 23:29 01/09/18 08:36 2 PUFFS Menthol (Nice Joy) 1 joy PRN PRN JOY 01/09/18 04:30 02/08/18 04:29 Trazodone HCl (Desyrel Tab) 50 mg HS PRN PO 01/09/18 05:45 02/08/18 05:44 Cyclobenzaprine HCl (Flexeril Tab) 5 mg TID PRN PO 01/09/18 08:45 02/08/18 08:44 01/09/18 09:42 5 MG Miscellaneous Information (Consult Glycemic Management Pharmacy) 1 ea UD PRN N/A 01/09/18 10:15 02/08/18 10:14 Aspirin (Ecotrin Tab) 81 mg QAM PO 01/09/18 12:00 02/08/18 11:59 01/09/18 13:23 81 MG Calcium/Vitamin D (Caltrate Plus Tab) 1 tab BID PO 01/09/18 12:00 02/08/18 11:59 01/09/18 13:23 1 TAB Cholecalciferol (Vitamin D Tab) 1,000 inter.unit QAM PO 01/09/18 12:00 02/08/18 11:59 01/09/18 13:22 1,000 INTER.UNIT Simvastatin (Zocor Tab) 20 mg HS PO 01/09/18 21:00 02/08/18 20:59 EZETIMIBE (Zetia Tab) 10 mg HS PO 01/09/18 21:00 02/08/18 20:59 Folic Acid (Folvite Tab) 800 mcg QAM PO 01/09/18 12:00 02/08/18 11:59 01/09/18 13:22 800 MCG Lisinopril (Zestril Tab) 20 mg QAM PO 01/09/18 12:00 02/08/18 11:59 01/09/18 13:22 20 MG Miscellaneous Information (Order Awaiting Action) 1 ea QS N/A 01/09/18 16:00 02/08/18 15:59 Montelukast Sodium (Singulair Tab) 10 mg HS PO 01/09/18 21:00 02/08/18 20:59 Multivitamins/ Minerals (Multivitamin W/ Minerals Tab) 1 tab QAM PO 01/09/18 12:00 02/08/18 11:59 01/09/18 13:22 1 TAB [id number]-Svhpu-Dmavldhpye Acetate (Vitamin E Cap) 400 interunit HS PO 01/09/18 21:00 02/08/18 20:59 Insulin Glargine (Lantus Solostar Pen) QPM ONCE SC 01/09/18 21:00 01/09/18 21:01 Ranitidine HCl (zANTac TAB) 150 mg BID PO 01/09/18 21:00 02/08/18 20:59 Insulin Aspart (novoLOG ASPART) SLIDING SCALE If C... TODAY@0200 [place] 01/10/18 02:00 02/09/18 01:59 I & O: 24-Hour Column 01/10/18 08:00 Intake Total 1789 ml Output Total 630 ml Balance 1159 ml Vital Signs: Date Time Temp Pulse Resp B/P (MAP) Pulse Ox O2 Delivery O2 Flow Rate FiO2 01/09/18 13:19 37.0 107 20 150/68 (95) 96 Nasal Cannula 2.0 01/09/18 11:30 Nasal Cannula 2.0 01/09/18 11:30 37.0 112 20 140/66 (90) 96 Nasal Cannula 2.0 01/09/18 10:46 111 26 140/69 (92) 95 01/09/18 10:31 112 30 143/69 (93) 94 01/09/18 10:16 113 29 156/75 (102) 90 01/09/18 10:01 123 19 134/85 (101) 01/09/18 10:00 125 13 01/09/18 09:57 127 15 108/80 (89) 01/09/18 09:51 118 20 150/72 (98) 95 01/09/18 09:47 117 18 161/67 (98) 96 01/09/18 09:32 116 13 124/65 (84) 01/09/18 09:17 117 24 148/58 (88) 01/09/18 09:16 37.1 113 20 158/84 (108) 96 Nasal Cannula 3.0 01/09/18 09:03 114 17 158/84 (108) 98 01/09/18 09:00 115 17 98 01/09/18 08:47 115 19 153/48 (83) 97 01/09/18 08:00 119 21 95 01/09/18 07:46 118 20 130/89 (103) 95 01/09/18 07:32 116 10 114/65 (81) 97 01/09/18 07:30 Nasal Cannula 3.0 01/09/18 07:30 37.1 116 16 131/70 (90) 96 Nasal Cannula 3.0 01/09/18 07:16 116 15 131/70 (90) 94 01/09/18 07:01 111 21 143/62 (89) 92 01/09/18 07:00 117 17 94 01/09/18 06:16 115 10 95/63 (74) 99 01/09/18 06:02 114 15 103/75 (84) 94 01/09/18 05:46 114 17 149/71 (97) 93 01/09/18 05:31 113 19 138/69 (92) 94 01/09/18 05:16 113 18 138/60 (86) 93 01/09/18 05:01 115 12 136/71 (92) 93 01/09/18 04:46 114 16 139/60 (86) 98 01/09/18 04:31 117 19 130/57 (81) 94 01/09/18 04:16 113 14 146/65 (92) 90 01/09/18 04:00 Nasal Cannula 3.0 01/09/18 03:46 37.1 114 15 159/71 (100) 98 Nasal Cannula 3.0 01/09/18 03:09 36.9 114 19 147/69 96 3.0 01/09/18 02:07 36.9 109 16 154/76 94 3.0 01/09/18 01:09 37.3 109 16 154/70 95 01/09/18 00:54 37.1 109 17 145/69 93 01/09/18 00:00 95 Nasal Cannula 3.0 01/08/18 23:47 103 15 126/73 (90) 95 01/08/18 23:45 37.0 103 13 95 01/08/18 23:32 108 20 94/63 (73) 92 3.0 01/08/18 23:30 97 15 96 01/08/18 23:16 103 13 129/69 (89) 96 01/08/18 23:15 36.9 104 16 96 3.0 01/08/18 23:02 107 14 126/79 (95) 96 01/08/18 23:00 99 16 97 01/08/18 22:30 37.1 97 24 105/62 92 3.0 01/08/18 22:15 37.1 95 16 126/74 96 3.0 01/08/18 22:00 98 16 104/60 (75) 97 Nasal Cannula 3.0 01/08/18 21:43 96 16 108/67 (81) 95 Nasal Cannula 3.0 01/08/18 20:30 36.8 95 16 131/66 96 01/08/18 20:00 36.8 94 16 136/72 (93) 96 Nasal Cannula 3.0 01/08/18 20:00 96 Nasal Cannula 3.0 01/08/18 20:00 36.8 94 16 136/72 96 3.0 01/08/18 19:00 36.5 96 18 138/82 96 3.0 01/08/18 18:45 36.5 100 18 119/59 98 3.0 01/08/18 18:29 36.5 97 16 133/67 96 3.0 01/08/18 18:00 36.5 100 20 136/67 (90) 96 Nasal Cannula 3.0 01/08/18 17:54 36.5 120 21 133/67 (89) 97 Nasal Cannula 3.0 01/08/18 16:54 36.5 103 20 125/62 99 3.0 01/08/18 16:54 36.5 96 18 99/63 98 3.0 01/08/18 16:30 99 Nasal Cannula 3.0 01/08/18 16:24 36.5 104 18 92/57 99 3.0 01/08/18 16:04 36.8 100 18 122/76 98 01/08/18 14:45 94 18 99/67 (78) 98 Nasal Cannula 2.0 01/08/18 14:15 100 Nasal Cannula 2.0 01/08/18 14:15 36.5 98 20 90/61 (71) 100 Nasal Cannula 2.0 Laboratory Results: Last 24 Hours Test 01/08/18 15:36 01/08/18 16:20 01/08/18 20:59 01/08/18 21:33 Hemoglobin 8.5 g/dL 10.4 g/dL Hematocrit 25.3 % 31.3 % Troponin I < 0.015 ng/ml Prothrombin Time 12.0 SECONDS Prothromb Time International Ratio 1.1 Activated Partial Thromboplast Time 22.8 SECONDS Partial Thromboplastin Ratio 0.9 Fibrinogen 117 mg/dl Sodium Level 135 mmol/L Potassium Level 4.0 mmol/L Chloride Level 100 mmol/L Carbon Dioxide Level 27 mmol/L Anion Gap 8.0 mmol/L Blood Urea Nitrogen 14 mg/dl Creatinine 0.87 mg/dl Est Creatinine Clear Calc Drug Dose 58.1 ml/min Estimated GFR () 78.2 Estimated GFR (Non- 67.5 BUN/Creatinine Ratio 16.0 Random Glucose 208 mg/dl Calcium Level 8.5 mg/dl Total Bilirubin 0.8 mg/dl Aspartate Amino Transf (AST/SGOT) 20 U/L Alanine Aminotransferase (ALT/SGPT) 22 U/L Alkaline Phosphatase 26 U/L Total Protein 5.1 gm/dl Albumin 3.3 gm/dl Globulin 1.8 gm/dl Albumin/Globulin Ratio 1.8 Bedside Glucose 159 mg/dl Test 01/09/18 04:00 01/09/18 08:16 01/09/18 11:53 White Blood Count 11.21 K/uL Red Blood Count 3.17 M/uL Hemoglobin 8.7 g/dL 8.5 g/dL 8.5 g/dL Hematocrit 25.0 % 24.9 % 24.8 % Mean Corpuscular Volume 78.9 fL Mean Corpuscular Hemoglobin 27.4 pg Mean Corpuscular Hemoglobin Concent 34.8 g/dl Platelet Count 148 K/uL Mean Platelet Volume 8.4 fL Neutrophils (%) (Auto) 74.0 % Lymphocytes (%) (Auto) 13.6 % Monocytes (%) (Auto) 11.8 % Eosinophils (%) (Auto) 0.1 % Basophils (%) (Auto) 0.1 % Neutrophils # (Auto) 8.30 K/uL Lymphocytes # (Auto) 1.52 K/uL Monocytes # (Auto) 1.32 K/uL Eosinophils # (Auto) 0.01 K/uL Basophils # (Auto) 0.01 K/uL RDW Standard Deviation 55.2 fL RDW Coefficient of Variation 19.0 % Immature Granulocyte % (Auto) 0.4 % Immature Granulocyte # (Auto) 0.05 K/uL Red Blood Cell Morphology Unremarkable Sodium Level 137 mmol/L Potassium Level 3.5 mmol/L Chloride Level 101 mmol/L Carbon Dioxide Level 26 mmol/L Anion Gap 10.0 mmol/L Blood Urea Nitrogen 16 mg/dl Creatinine 0.93 mg/dl Est Creatinine Clear Calc Drug Dose 54.4 ml/min Estimated GFR () 72.2 Estimated GFR (Non- 62.3 BUN/Creatinine Ratio 17.7 Random Glucose 152 mg/dl Calcium Level 8.0 mg/dl Phosphorus Level 3.2 mg/dl Magnesium Level 1.4 mg/dl Total Bilirubin 0.7 mg/dl Aspartate Amino Transf (AST/SGOT) 22 U/L Alanine Aminotransferase (ALT/SGPT) 23 U/L Alkaline Phosphatase 35 U/L Troponin I < 0.015 ng/ml Total Protein 5.5 gm/dl Albumin 3.2 gm/dl Globulin 2.3 gm/dl Albumin/Globulin Ratio 1.4
[2018-01-09] MEDS: NAMENDA XR - ORDER AWAITING ACTION SCH ×2 (15:47→23:37)
[2018-01-09] MEDS: DOCUSATE SODIUM/SENNA 50/8.6MG TAB PO SCH (21:00)
[2018-01-09] MEDS: DULOXETINE (CYMBALTA) 30 MG CAP PO SCH (21:00)
[2018-01-09] MEDS: TOCOPHERYL, DL-ALPHA 400 INTER.UNIT CAP PO SCH (21:00)
[2018-01-09] MEDS: RANITIDINE HCL 150 MG TAB PO SCH (21:00)
[2018-01-09] MEDS: EZETIMIBE 10MG TAB PO SCH (21:00)
[2018-01-09] MEDS: MONTELUKAST SOD 10 MG TAB PO SCH (21:00)
[2018-01-09] MEDS: SIMVASTATIN 20 MG TAB PO SCH (21:00)
[2018-01-09] MEDS: DONEPEZIL HCL 10 MG TAB PO SCH (21:00)
[2018-01-10] MEDS ORDERED: INSULIN ASPART 100 UNITS/ML 3 ML PEN SC SCH (02:00)
[2018-01-10] MEDS: OXYCODONE HCL IR 5 MG TAB (IMMEDIATE RELEASE) PO PRN ×2 (02:58→23:36)
[2018-01-10 04:52] VITALS: BP 108/52; PULSE 107; TEMP 36.8; O2SAT 90
[2018-01-10] MEDS: LEVOTHYROXINE 100 MCG TAB PO SCH (06:18)
[2018-01-10] MEDS: POLYETHYLENE (MIRALAX) 17 GM PACK PO SCH ×4 (06:18→23:36)
[2018-01-10 07:39] VITALS: BP 115/63; PULSE 68; TEMP 36.5; O2SAT 95
[2018-01-10] MEDS: FLUTICASONE PROPIONATE NA SPR 16 GM BTL NAE SCH (07:39)
[2018-01-10] MEDS: BUDESONIDE/FORMOTEROL FUMARATE 160/4.5 60 PUFFS/INHALER INH SCH ×2 (07:39→20:51)
[2018-01-10] MEDS: HYDROmorphone INJ 0.5 MG/0.5 ML SYR IV PRN ×3 (07:43→16:45)
[2018-01-10] MEDS: CALCIUM 600MG + VIT D 400 IU TAB PO SCH ×2 (07:43→21:00)
[2018-01-10] MEDS: FoLIC ACID TAB 400 MCG TAB PO SCH (07:44)
[2018-01-10] MEDS: DULOXETINE HCL 60 MG CAP PO SCH (07:44)
[2018-01-10] MEDS: PANTOprazole SOD 40 MG TAB PO SCH (07:44)
[2018-01-10] MEDS: FERROUS SULFATE 325 MG TAB PO SCH (07:44)
[2018-01-10] MEDS: HYDROCHLOROTHIAZIDE 25 MG TAB PO SCH (07:45)
[2018-01-10] MEDS: ASPIRIN 81 MG ECTAB PO SCH (07:45)
[2018-01-10] MEDS: CEROVITE ADV FORMULA TAB PO SCH (07:46)
[2018-01-10] MEDS: RANITIDINE HCL 150 MG TAB PO SCH ×2 (07:47→20:55)
[2018-01-10] MEDS: LISINOPRIL 20 MG TAB PO SCH (07:47)
[2018-01-10] MEDS: ASCORBIC ACID 500 MG TAB PO SCH (07:47)
[2018-01-10] MEDS: NAMENDA XR - ORDER AWAITING ACTION SCH ×3 (08:00→23:37)
[2018-01-10 08:21] LABS: HEMATOCRIT 27.5 % (37-47); HEMOGLOBIN 9.3 g/dL (12.0-16.0); MEAN CELL VOLUME 80.9 fL (80-100); MEAN CORPUSCULAR HEMOGLOBIN 27.4 pg (25-34); MEAN CORPUSCULAR HGB CONC 33.8 g/dl (32-36); MEAN PLATELET VOLUME 8.4 fL (7.4-10.4); PLATELET COUNT 145 K/uL (130-400); RED CELL DISTRIBUTION WIDTH CV 19.9 % (11.5-14.5); RED CELL DISTRIBUTION WIDTH SD 58.5 fL (36.4-46.3); WHITE BLOOD COUNT 12.22 K/uL (4.8-10.8)
[2018-01-10] MEDS: INSULIN ASPART 100 UNITS/ML 3 ML PEN SC SCH ×4 (08:50→20:56)
[2018-01-10 08:51] LABS: ALBUMIN 2.8 gm/dl (3.4-5.0); CALCIUM 8.1 mg/dl (8.5-10.1); CREATININE 0.7 mg/dl (0.60-1.20); POTASSIUM 3.1 mmol/L (3.5-5.1); TOTAL PROTEIN 5.8 gm/dl (6.4-8.2)
[2018-01-10] MEDS ORDERED: INSULIN GLARGINE SOLOSTAR 100 UNITS/ML 3 ML PEN SC SCH ×2 (09:00→21:00)
[2018-01-10 09:03] LABS: PHOSPHORUS 1.8 mg/dl (2.5-4.9)
[2018-01-10 09:27] LABS: BASO % 0.3 %; BASO ABS # 0.03 K/uL (0-0.2); EOS % 0.8 %; EOS ABS # 0.09 K/uL (0-0.5); IG# 0.08 K/uL (0.00-0.02); LYMPH % 14.6 %; LYMPH ABS # 1.75 K/uL (1.2-3.4); MONO % 11.9 %; MONO ABS # 1.43 K/uL (0.11-0.59); NEUT % 71.7 %; NEUT ABS # 8.62 K/uL (1.4-6.5)
[2018-01-10] MEDS ORDERED: NURSING VERBAL MED ORDER ONE ×2 (09:45→10:15)
--- NOTE | 2018-01-10 09:46 | Pharmacy Progress Note ---
Pharmacy Glycemic Short Note 2 Date of Service Jan 10, 2018. OUTPATIENT ANTIDIABETIC REGIMEN: * metformin 1000 mg PO BID ASSESSMENT: * Ms Ritter is a 72 y/o F with a PMH of anxiety/depression, GERD, fibromyalgia, and well-controlled type 2 diabetes who presents for spinal stenosis surgery. She was admitted to the ICU after surgery for post-operative acute blood loss. She is now transferred to the floor and is doing well. Yesterday's blood sugars were [phone] mg/dL. She received 52 units of insulin (32 units of basal) . Fasting is 151 mg/dL. * Will give Lantus 15 units this morning with scale for this evening. This is weight-based stress of 2 half dose. Novolog was loosened with breakfast as expected dexamethasone to "wear off." Tightened again with lunch secondary to spike. * Restart metformin with lunch. PLAN FOR INPATIENT GLYCEMIC CONTROL: * metformin 1000 mg PO BIDM * Basal insulin * Lantus 15 units SQ x 1 this morning and then 0-10 units SQ HS (0 for blood sugar less than 140 mg/dL; 7 units for blood sugar 140-180 mg/dL; 10 units for blood sugar greater than 180 mg/dL) * Bolus insulin * NovoLog per scale ACHS or Q6hrs while NPO * Goal Range: Low 110 mg/dL - High 140 mg/dL * Correction Factor: 20 mg/dL/unit * Nutritional / Prandial insulin per carb ratio of 1 unit per 7 grams CHO consumed PLAN FOR DISCHARGE: * with well - controlled blood sugar, reasonable to continue home regimen.
[2018-01-10] MEDS: CHOLECALCIFEROL 1000 INTER.UNIT TAB PO SCH (10:06)
[2018-01-10] MEDS ORDERED: POTASSIUM CHLORIDE 20 MEQ TABCR PO ONE (10:30)
[2018-01-10] MEDS ORDERED: MAGNESIUM SULFATE 1GM / D5W 1 GM in PREMIXED IN D5W 100 ML IV SCH (10:30)
[2018-01-10] MEDS: METFORMIN HCL 500 MG TAB PO SCH ×2 (11:24→18:37)
--- NOTE | 2018-01-10 11:45 | Progress Note ---
Progress Note Date of Service Jan 10, 2018. Progress Note Pain is controlled. Leg symptoms markedly improved. On exam she is comfortable demonstrates excellent strength testing bilateral lower extremities. Assessment status post thoracolumbar fusion. Plan at this time we will steadily advance her physical therapy and hopefully discharge later after this weekend. She can be transitioned to the orthopedic floor when cleared by medicine.
[2018-01-10 11:47] VITALS: BP 131/69; PULSE 66; TEMP 36.5; O2SAT 97
--- NOTE | 2018-01-10 13:24 | Hospitalist Progress Note ---
Hospitalist Progress Note Date of Service Jan 10, 2018. Subjective Pt evaluation today including: conversation w/ patient, physical exam, chart review, lab review, review of inpatient medication list Patient seen and evaluated. No acute events overnight. Hgb continues to improve. Low 100 sinus tach on monitor. Vital signs stable. Pain mostly controlled. Ambulating in room. Tolerating a diet without difficulty. Constitutional: No fever, No chills Respiratory: No cough, No shortness of breath Cardiovascular: No chest pain, No palpitations Abdomen: No pain, No nausea, No vomiting, No diarrhea, No constipation Musculoskeletal: No calf pain Female : No dysuria Neurologic: No numbness/tingling Heme: No abnormal bleeding/bruising Skin: No rash Medications Current Inpatient Medications Medications (Trade) Dose Ordered Sig/Tung Route Start Time Stop Time Status Last Admin Dose Admin Promethazine HCl 12.5 mg/Sodium Chloride 50.5 ml @ 202 mls/hr Q6H PRN IV 01/08/18 11:15 02/07/18 11:14 Ondansetron HCl (Zofran Inj) 4 mg Q6H PRN IV 01/08/18 11:15 02/07/18 11:14 Metoclopramide HCl (Reglan Inj) 10 mg Q6H PRN IV 01/08/18 11:15 02/07/18 11:14 Lorazepam (Ativan Tab) 0.5 mg Q8H PRN PO 01/08/18 11:15 02/07/18 11:14 Lorazepam 0.5 mg/ Syringe 1 ml @ 1 mls/min Q8H PRN IV 01/08/18 11:15 02/07/18 11:14 Pneumococcal Polysaccharide Vaccine 1 ea PRN PRN N/A 01/08/18 11:15 02/07/18 11:14 Influenza Virus Vacc Triv Types A&B 1 ea PRN PRN N/A 01/08/18 11:15 02/07/18 11:14 Polyethylene (Miralax Powder Packet) 17 gm Q6 PO 01/10/18 06:00 02/09/18 05:59 01/10/18 11:24 17 GM Bisacodyl (Dulcolax Supp) 10 mg DAILY PRN SD 01/08/18 11:15 02/07/18 11:14 Magnesium Hydroxide (Milk Of Magnesia Susp) 30 ml DAILY PRN PO 01/08/18 11:15 02/07/18 11:14 Hydromorphone HCl (Dilaudid Inj) 0.5 mg Q3H PRN IV 01/09/18 06:00 01/23/18 05:59 01/10/18 07:43 0.5 MG Oxycodone HCl (Roxicodone Immediate Rel Tab) 5-10mg prn moderate to sev... Q4H PRN PO 01/09/18 06:00 01/23/18 05:59 01/09/18 21:35 10 MG Acetaminophen (Tylenol Tab) 1,000 mg Q8H PRN PO 01/08/18 11:15 02/07/18 11:14 Acetaminophen 100 ml @ 400 mls/hr Q8H PRN IV 01/08/18 11:15 02/07/18 11:14 Naloxone HCl (Narcan Inj) 0.1 mg Q5M PRN IV 01/08/18 11:15 02/07/18 11:14 Senna/Docusate Sodium (Senokot S Tab) 2 tab HS PO 01/08/18 21:00 02/07/18 20:59 01/09/18 21:00 2 TAB Sodium Biphosphate/ Sodium Phosphate (Fleet Enema) 132 ml ONE PRN SD 01/08/18 11:15 02/07/18 11:14 Hydroxyzine HCl (Vistaril Tab) 25 mg Q8H PRN PO 01/08/18 11:15 02/07/18 11:14 Al Hydroxide/Mg Hydroxide (Maalox Susp) 30 ml Q6H PRN PO 01/08/18 11:15 02/07/18 11:14 Famotidine (Pepcid Tab) 20 mg Q12 PRN PO 01/08/18 11:15 02/07/18 11:14 Diphenhydramine HCl (Benadryl Cap) 25 mg Q6H PRN PO 01/08/18 11:15 02/07/18 11:14 01/09/18 01:59 25 MG Budesonide/ Formoterol Fumarate (Symbicort 160/ 4.5 Inh) 2 puffs BID INH 01/08/18 21:00 02/07/18 20:59 01/10/18 07:39 2 PUFFS Bupropion HCl (Wellbutrin Tab) 100 mg BID PO 01/08/18 21:00 02/07/18 20:59 01/10/18 10:06 100 MG Donepezil HCl (Aricept Tab) 10 mg HS PO 01/08/18 21:00 02/07/18 20:59 01/09/18 21:00 10 MG Duloxetine HCl (Cymbalta Cap) 30 mg HS PO 01/08/18 21:00 02/07/18 20:59 01/09/18 21:00 30 MG Duloxetine HCl (Cymbalta Cap) 60 mg QAM PO 01/09/18 09:00 02/08/18 08:59 01/10/18 07:44 60 MG Fluticasone Propionate (Flonase Nasal [place]) 2 sprays QAM YUDY 01/09/18 09:00 02/08/18 08:59 01/10/18 07:39 2 SPRAYS Hydrochlorothiazide (Hydrochlorothiazide Tab) 25 mg QAM PO 01/09/18 09:00 02/08/18 08:59 01/10/18 07:45 25 MG Lamotrigine (Lamictal Tab) 150 mg HS PO 01/08/18 21:00 02/07/18 20:59 01/09/18 21:00 150 MG Levothyroxine Sodium (Synthroid Tab) 100 mcg DAILYBB PO 01/09/18 06:00 02/08/18 05:59 01/10/18 06:18 100 MCG Pantoprazole Sodium (Protonix Tab) 40 mg QAM PO 01/09/18 09:00 02/08/18 08:59 01/10/18 07:44 40 MG Hydromorphone HCl (Dilaudid Inj) 1 mg Q3H PRN IV 01/08/18 14:30 01/22/18 14:29 Future hold Insulin Aspart (novoLOG ASPART) SLIDING SCALE If C... ACHS SC 01/08/18 16:15 02/07/18 16:14 01/10/18 08:50 2 UNITS Glucose (Glucose 40% Gel) 15-30 GRAMS 15 GRAMS... UD PRN PO 01/08/18 16:15 02/07/18 16:14 Glucose (Glucose Chew Tab) 4-8 Tablets 4 Tabl... UD PRN PO 01/08/18 16:15 02/07/18 16:14 Dextrose (Dextrose 50% 50ML Syringe) 25-50ML OF 50% DW IV FOR... UD PRN IV 01/08/18 16:15 02/07/18 16:14 Glucagon (Glucagon Inj) 1 mg UD PRN SQ 01/08/18 16:15 02/07/18 16:14 Ascorbic Acid (Vitamin C Tab) 500 mg QAM PO 01/09/18 09:00 02/08/18 08:59 01/10/18 07:47 500 MG Ferrous Sulfate (Feosol Tab) 325 mg QAM PO 01/09/18 09:00 02/08/18 08:59 01/10/18 07:44 325 MG Albuterol (Proair Hfa) 2 puffs Q4 PRN INH 01/08/18 23:30 02/07/18 23:29 01/09/18 08:36 2 PUFFS Menthol (Nice Joy) 1 joy PRN PRN JOY 01/09/18 04:30 02/08/18 04:29 Trazodone HCl (Desyrel Tab) 50 mg HS PRN PO 01/09/18 05:45 02/08/18 05:44 Cyclobenzaprine HCl (Flexeril Tab) 5 mg TID PRN PO 01/09/18 08:45 02/08/18 08:44 01/09/18 09:42 5 MG Miscellaneous Information (Consult Glycemic Management Pharmacy) 1 ea UD PRN N/A 01/09/18 10:15 02/08/18 10:14 Aspirin (Ecotrin Tab) 81 mg QAM PO 01/09/18 12:00 02/08/18 11:59 01/10/18 07:45 81 MG Calcium/Vitamin D (Caltrate Plus Tab) 1 tab BID PO 01/09/18 12:00 02/08/18 11:59 01/10/18 07:43 1 TAB Cholecalciferol (Vitamin D Tab) 1,000 inter.unit QAM PO 01/09/18 12:00 02/08/18 11:59 01/10/18 10:06 1,000 INTER.UNIT Simvastatin (Zocor Tab) 20 mg HS PO 01/09/18 21:00 02/08/18 20:59 01/09/18 21:00 20 MG EZETIMIBE (Zetia Tab) 10 mg HS PO 01/09/18 21:00 02/08/18 20:59 01/09/18 21:00 10 MG Folic Acid (Folvite Tab) 800 mcg QAM PO 01/09/18 12:00 02/08/18 11:59 01/10/18 07:44 800 MCG Lisinopril (Zestril Tab) 20 mg QAM PO 01/09/18 12:00 02/08/18 11:59 01/10/18 07:47 20 MG Miscellaneous Information (Order Awaiting Action) 1 ea QS N/A 01/09/18 16:00 02/08/18 15:59 Montelukast Sodium (Singulair Tab) 10 mg HS PO 01/09/18 21:00 02/08/18 20:59 01/09/18 21:00 10 MG Multivitamins/ Minerals (Multivitamin W/ Minerals Tab) 1 tab QAM PO 01/09/18 12:00 02/08/18 11:59 01/10/18 07:46 1 TAB [id number] Acetate (Vitamin E Cap) 400 interunit HS PO 01/09/18 21:00 02/08/18 20:59 01/09/18 21:00 400 INTERUNIT Ranitidine HCl (zANTac TAB) 150 mg BID PO 01/09/18 21:00 02/08/18 20:59 01/10/18 07:47 150 MG Insulin Glargine (Lantus Solostar Pen) SEE PROTOCOL TEXT HS SC 01/10/18 21:00 01/10/18 21:01 Metformin HCl (Glucophage Tab) 1,000 mg BIDM PO 01/10/18 12:00 02/09/18 11:59 01/10/18 11:24 1,000 MG Objective Vital Signs Date Time Temp Pulse Resp B/P (MAP) Pulse Ox O2 Delivery O2 Flow Rate FiO2 01/10/18 12:00 Room Air 01/10/18 11:47 36.5 66 18 131/69 (89) 97 01/10/18 08:00 Room Air 01/10/18 07:39 36.5 68 18 115/63 (80) 95 01/10/18 04:52 36.8 107 22 108/52 (70) 90 Room Air 01/10/18 04:00 Room Air 01/10/18 00:00 Room Air 01/09/18 23:37 37.1 111 23 129/78 (95) 92 Room Air 01/09/18 16:00 36.8 106 14 142/59 (86) 94 Room Air 01/09/18 16:00 Room Air 01/09/18 14:05 110 01/09/18 13:19 37.0 107 20 150/68 (95) 96 Nasal Cannula 2.0 Physical Exam General Appearance: WD/WN, no apparent distress, + obese Eyes: sclerae normal ENT: hearing grossly normal Neck: supple, no JVD, trachea midline Respiratory/Chest: lungs clear, normal breath sounds, no respiratory distress, no accessory muscle use Cardiovascular: regular rate, rhythm, no gallop, no murmur Abdomen: normal bowel sounds, non tender, soft Extremities: no pedal edema, no calf tenderness Neurologic/Psychiatric: no motor/sensory deficits, alert, oriented x 3 Skin: normal color, warm/dry Laboratory Results Last 24 Hours Test 01/09/18 15:57 01/09/18 20:32 01/10/18 01:58 01/10/18 06:32 Bedside Glucose 167 mg/dl 155 mg/dl 137 mg/dl 151 mg/dl Test 01/10/18 08:06 01/10/18 11:17 White Blood Count 12.22 K/uL Red Blood Count 3.40 M/uL Hemoglobin 9.3 g/dL Hematocrit 27.5 % Mean Corpuscular Volume 80.9 fL Mean Corpuscular Hemoglobin 27.4 pg Mean Corpuscular Hemoglobin Concent 33.8 g/dl Platelet Count 145 K/uL Mean Platelet Volume 8.4 fL Neutrophils (%) (Auto) 71.7 % Lymphocytes (%) (Auto) 14.6 % Monocytes (%) (Auto) 11.9 % Eosinophils (%) (Auto) 0.8 % Basophils (%) (Auto) 0.3 % Neutrophils # (Auto) 8.62 K/uL Lymphocytes # (Auto) 1.75 K/uL Monocytes # (Auto) 1.43 K/uL Eosinophils # (Auto) 0.09 K/uL Basophils # (Auto) 0.03 K/uL RDW Standard Deviation 58.5 fL RDW Coefficient of Variation 19.9 % Immature Granulocyte % (Auto) 0.7 % Immature Granulocyte # (Auto) 0.08 K/uL Nucleated RBC Absolute Count (auto) 0.00 K/uL Nucleated Red Blood Cells % 0.0 % Sodium Level 130 mmol/L Potassium Level 3.1 mmol/L Chloride Level 94 mmol/L Carbon Dioxide Level 30 mmol/L Anion Gap 7.0 mmol/L Blood Urea Nitrogen 10 mg/dl Creatinine 0.70 mg/dl Est Creatinine Clear Calc Drug Dose 71.6 ml/min Estimated GFR () 101.7 Estimated GFR (Non- 87.8 BUN/Creatinine Ratio 14.0 Random Glucose 198 mg/dl Calcium Level 8.1 mg/dl Phosphorus Level 1.8 mg/dl Magnesium Level 1.7 mg/dl Total Bilirubin 0.8 mg/dl Aspartate Amino Transf (AST/SGOT) 29 U/L Alanine Aminotransferase (ALT/SGPT) 21 U/L Alkaline Phosphatase 40 U/L Total Protein 5.8 gm/dl Albumin 2.8 gm/dl Globulin 3.0 gm/dl Albumin/Globulin Ratio 0.9 Bedside Glucose 220 mg/dl Assessment and Plan Ms. Ritter is an acutely ill woman with large EBL of 1900 and chest pain here s/p decompression and fusion 01/08 Acute Blood Loss Anemia Post-Operatively S/P Decompression/Fusion on 01/08: IMPROVING - EBL 1900 mL - Transfused 4 units PRBCs, 2 FFP, and TXA x 2 doses on 01/08 - no further indication for transfusion - Hemoglobin sarbjit at 9.3 and asymptomatic from anemic standpoint; optimal for transition to orthopedic floor - Will continue to monitor blood counts and transfuse when necessary -- No cardiac history and could defer transfusion until Hgb > 7 or symptomatic - Continue pain management regimen and encourage bowel regimen - Appreciate surgical intervention and input from Dr. Pantoja T2DM: - Glycemic management following - appreciate assistance and adjustments -- Planning for home regimen to continue on D/C GERD: - Zantac 150 mg BID HTN: - HCTZ 25 mg daily and Lisinopril 20 mg daily Hypothyroidism: - Synthroid 100 mcg daily Depression: STABLE - Wellbutrin 100 mg BID and Cymbalta 60 mg AM and 30 mg HS Morbid Obesity - BMI 45.3: Noted Code Status: FULL RESUSCITATION Will continue to follow with primary team. If Hgb remains stable likely can be D /Cd pending rehab approval will reassess with AM labs Continued [facility] stay due to: ambulation difficulties Discharge planning: rehab hospital
[2018-01-10 15:05] VITALS: BP 116/75; PULSE 97; TEMP 36.5; O2SAT 94
[2018-01-10] MEDS ORDERED: POLYETHYLENE (MIRALAX) 17 GM PACK PO PRN (16:30)
[2018-01-10 18:54] VITALS: O2SAT 94
[2018-01-10] MEDS: DONEPEZIL HCL 10 MG TAB PO SCH (20:53)
[2018-01-10] MEDS: DULOXETINE (CYMBALTA) 30 MG CAP PO SCH (20:53)
[2018-01-10] MEDS: DOCUSATE SODIUM 100 MG CAP PO SCH (20:53)
[2018-01-10] MEDS: MONTELUKAST SOD 10 MG TAB PO SCH (20:54)
[2018-01-10] MEDS: DOCUSATE SODIUM/SENNA 50/8.6MG TAB PO SCH (20:54)
[2018-01-10] MEDS: SIMVASTATIN 20 MG TAB PO SCH (20:55)
[2018-01-10] MEDS: TOCOPHERYL, DL-ALPHA 400 INTER.UNIT CAP PO SCH (20:55)
[2018-01-10] MEDS: EZETIMIBE 10MG TAB PO SCH (20:55)
[2018-01-10 23:02] VITALS: BP 152/70; PULSE 99; TEMP 36.8; O2SAT 93
--- NOTE | 2018-01-10 23:11 | Progress Note ---
Post ICU Progress Note Date & Time Jan 10, 2018 at 23:10 Vital Signs Vital Signs Past 12 Hours Date Time Temp Pulse Resp B/P (MAP) Pulse Ox O2 Delivery O2 Flow Rate FiO2 01/10/18 18:54 94 Room Air 01/10/18 15:05 36.5 97 18 116/75 (89) 94 Room Air 01/10/18 14:21 36.5 66 18 97 01/10/18 12:00 Room Air 01/10/18 11:47 36.5 66 18 131/69 (89) 97 Notes Mental Status: alert / awake, participated in evaluation Nausea / Vomiting: adequately controlled Pain: adequately controlled Airway Patency, RR, SpO2: stable & adequate BP & HR: stable & adequate Cheyanne Ritter is a 72yo female who presented to the ICU on s/p decompression and fusion by Dr. Pantoja with EBL of 1900cc. She was symptomatic with chest pain and required 4u PRBCs, 2 FFP and TXA 2g. H&H were trended and were stable. Pt did not require post operative intubation, CVL or arterial line placement. She was downgraded the following day. Upon my examination, she is resting in bed without complaint of pain or discomfort. She is upset by her dental soft diet and would like it changed. Patient states she had previously had trouble swallowing post anesthesia and no one has changed her diet back at this time. As pts bowel sounds were hypoactive , I did state that I would leave her diet up to her surgeon. She did has water at the bedside and reported that she had no issues with swallowing it. Sanabria has been discontinued and pt is ambulating to the restroom with nursing staff. [facility], authorization is pending. No acute findings on physical exam. Consider outpatient follow up in 1 to 2 weeks of [facility]: * Dr. Pantoja * PCP: Dr. Keyes Repeat imaging needed: Per Dr. Pantoja Follow up cultures: Not indicated Reviewed progress notes, labs, and inpatient medication list Continue current management Additional recommendations: Monitor SHADIA drainage and Follow H&H. No transfusion unless Hgb < 7 or symptomatic. Pt is stabilized at this time. Thank you for including us in the care of this pt. Critical Care will sign off at this time. Please feel free to reconsult as needed. Level 1 Inpt Consul Follow Up billing Consults & Procedures Consultants: Dr. Pantoja Surgeon Admitting Procedures: decompression and fusion by Dr. Pantoja 01/08
[2018-01-11] MEDS: POLYETHYLENE (MIRALAX) 17 GM PACK PO SCH ×3 (05:13→18:08)
[2018-01-11] MEDS: OXYCODONE HCL IR 5 MG TAB (IMMEDIATE RELEASE) PO PRN ×3 (05:13→19:44)
[2018-01-11] MEDS: LEVOTHYROXINE 100 MCG TAB PO SCH (05:13)
[2018-01-11 05:46] LABS: BASO % 0.3 %; BASO ABS # 0.03 K/uL (0-0.2); EOS % 1.4 %; EOS ABS # 0.15 K/uL (0-0.5); HEMATOCRIT 28.5 % (37-47); HEMOGLOBIN 9.3 g/dL (12.0-16.0); IG# 0.06 K/uL (0.00-0.02); LYMPH ABS # 1.26 K/uL (1.2-3.4); MEAN CELL VOLUME 82.1 fL (80-100); MEAN CORPUSCULAR HEMOGLOBIN 26.8 pg (25-34); MEAN CORPUSCULAR HGB CONC 32.6 g/dl (32-36); MEAN PLATELET VOLUME 8.8 fL (7.4-10.4); MONO % 11.5 %; MONO ABS # 1.21 K/uL (0.11-0.59); NEUT % 74.2 %; NEUT ABS # 7.81 K/uL (1.4-6.5); PLATELET COUNT 202 K/uL (130-400); RED CELL DISTRIBUTION WIDTH CV 19.6 % (11.5-14.5); RED CELL DISTRIBUTION WIDTH SD 58.3 fL (36.4-46.3); WHITE BLOOD COUNT 10.52 K/uL (4.8-10.8)
[2018-01-11 06:22] LABS: ALBUMIN 2.8 gm/dl (3.4-5.0); CALCIUM 8.6 mg/dl (8.5-10.1); CREATININE 0.72 mg/dl (0.60-1.20); POTASSIUM 3.6 mmol/L (3.5-5.1)
[2018-01-11 06:26] LABS: PHOSPHORUS 2.3 mg/dl (2.5-4.9)
[2018-01-11 07:40] VITALS: BP 132/81; PULSE 93; TEMP 36.7; O2SAT 94
--- NOTE | 2018-01-11 07:53 | Orthopedic Progress Note ---
Orthopedic Progress Note Date of Service Jan 11, 2018. Subjective Post OP Day: 3 Reports: feeling well Additional Notes: Patient is postoperative day 3 thoracolumbar decompression fusion. She has no complaints of leg pain. She does have complaints of back pain which appeared to be controlled. SHADIA drain output last shift was 60 cc. H&H is morning are 9.3 and 28.5 respectively. She is passing flatus but no bowel movement yet. She is just transferred to the orthopedic floor yesterday from ICU. Objective calves soft nontender, N/V intact, dressing C/D/I, A&O x3 She is lying in bed. She is in no obvious distress. Calf is soft and nontender bilaterally. Neurovascular intact bilateral lower extremities. Dressing clean dry and intact. Date Time Temp Pulse Resp B/P (MAP) Pulse Ox O2 Delivery O2 Flow Rate FiO2 01/11/18 07:40 36.7 93 18 132/81 (98) 94 Room Air 01/10/18 23:43 Room Air 01/10/18 23:02 36.8 99 20 152/70 (97) 93 Room Air 01/10/18 18:54 94 Room Air 01/10/18 15:05 36.5 97 18 116/75 (89) 94 Room Air 01/10/18 14:21 36.5 66 18 97 01/10/18 12:00 Room Air 01/10/18 11:47 36.5 66 18 131/69 (89) 97 01/10/18 08:00 Room Air Laboratory Results 24 Hours: Test 01/10/18 08:06 01/11/18 05:21 White Blood Count 12.22 K/uL 10.52 K/uL Red Blood Count 3.40 M/uL 3.47 M/uL Hemoglobin 9.3 g/dL 9.3 g/dL Hematocrit 27.5 % 28.5 % Mean Corpuscular Volume 80.9 fL 82.1 fL Mean Corpuscular Hemoglobin 27.4 pg 26.8 pg Mean Corpuscular Hemoglobin Concent 33.8 g/dl 32.6 g/dl Platelet Count 145 K/uL 202 K/uL Mean Platelet Volume 8.4 fL 8.8 fL Neutrophils (%) (Auto) 71.7 % 74.2 % Lymphocytes (%) (Auto) 14.6 % 12.0 % Monocytes (%) (Auto) 11.9 % 11.5 % Eosinophils (%) (Auto) 0.8 % 1.4 % Basophils (%) (Auto) 0.3 % 0.3 % Neutrophils # (Auto) 8.62 K/uL 7.81 K/uL Lymphocytes # (Auto) 1.75 K/uL 1.26 K/uL Monocytes # (Auto) 1.43 K/uL 1.21 K/uL Eosinophils # (Auto) 0.09 K/uL 0.15 K/uL Basophils # (Auto) 0.03 K/uL 0.03 K/uL Assessment & Plan Assessment: Post operative day 3 thoracolumbar decompression fusion Plan: We will start physical therapy today. Maintain SHADIA drain for at least the next 24 hours. Continue to monitor H&H. Work on aggressive bowel regimen. DVT prophylaxis is in the form teds and SCDs. Will discharge to rehab when bed available. Inhouse Planning DVT Prophylaxis: TEDs, SCDs Discharge Planning Discharge Planning: rehab hospital DVT Prophylaxis: Leilani
[2018-01-11] MEDS: NAMENDA XR - ORDER AWAITING ACTION SCH ×2 (08:00→15:50)
[2018-01-11] MEDS: HYDROmorphone INJ 0.5 MG/0.5 ML SYR IV PRN (08:36)
[2018-01-11] MEDS: FERROUS SULFATE 325 MG TAB PO SCH (09:00)
[2018-01-11] MEDS: LISINOPRIL 20 MG TAB PO SCH (09:00)
[2018-01-11] MEDS ORDERED: INSULIN GLARGINE SOLOSTAR 100 UNITS/ML 3 ML PEN SC SCH ×2 (09:00→21:00)
[2018-01-11] MEDS: INSULIN ASPART 100 UNITS/ML 3 ML PEN SC SCH ×4 (09:26→20:58)
--- NOTE | 2018-01-11 10:23 | Pharmacy Progress Note ---
Pharmacy Glycemic Short Note 2 Date of Service Jan 11, 2018. OUTPATIENT ANTIDIABETIC REGIMEN: * metformin 1000 mg PO BID ASSESSMENT: * Ms Ritter is a 72 y/o F with a PMH of anxiety/depression, GERD, fibromyalgia, and well-controlled type 2 diabetes who presents for spinal stenosis surgery. She was admitted to the ICU after surgery for post-operative acute blood loss. She is now transferred to the floor and is doing well. Yesterday's blood sugars were [phone] mg/dL. She received 27 units of insulin (15 units of basal) . Fasting is 187 mg/dL. * Will give Lantus 22 units this morning with scale for this evening. This is weight-based stress of 2-3 half dose. Since the fasting is slightly higher today , expect that patient would have faired better if at least 5 units of Lantus was given last night. Therefore, will provide slightly more Lantus today with understanding that effects of dexamethasone should diminish soon. Blood sugar decreased significant by lunchtime therefore loosen Novolog parameters. * Restarted metformin. PLAN FOR INPATIENT GLYCEMIC CONTROL: * metformin 1000 mg PO BIDM * Basal insulin * Lantus 22 units SQ x 1 this morning and then 0-7 units SQ HS (0 for blood sugar less than 180 mg/dL; 7 units for blood sugar 180 mg/dL or greater) * Bolus insulin * NovoLog per scale ACHS or Q6hrs while NPO * Goal Range: Low 110 mg/dL - High 140 mg/dL * Correction Factor: 25 mg/dL/unit * Nutritional / Prandial insulin per carb ratio of 1 unit per 9 grams CHO consumed PLAN FOR DISCHARGE: * with well - controlled blood sugar, reasonable to continue home regimen.
--- NOTE | 2018-01-11 12:17 | DIAGNOSTIC IMAGING REPORT ---
SEAN CLINICAL HISTORY: no BM since surgery constipation COMPARISON STUDY: No previous studies for comparison. FINDINGS: Nonobstructive bowel pattern. No significant increase in fecal load. Findings consistent with laminectomy and fusion from T11 through S1. IMPRESSION: 1. Nonobstructive bowel pattern. 2. No evidence for an abnormal increase in fecal load The above report was generated using voice recognition software. It may contain grammatical, syntax or spelling errors. Electronically signed by: Dm Lovelace M.D. 01/11/2018 12:15 PM Dictated Date/Time: 01/11/2018 12:13 PM
[2018-01-11] MEDS: METFORMIN HCL 500 MG TAB PO SCH ×2 (13:26→18:04)
[2018-01-11] MEDS: CALCIUM 600MG + VIT D 400 IU TAB PO SCH ×2 (13:27→20:51)
[2018-01-11] MEDS: DULOXETINE HCL 60 MG CAP PO SCH (13:27)
[2018-01-11] MEDS: DOCUSATE SODIUM 100 MG CAP PO SCH ×2 (13:27→20:51)
[2018-01-11] MEDS: ASPIRIN 81 MG ECTAB PO SCH (13:28)
[2018-01-11] MEDS: FoLIC ACID TAB 400 MCG TAB PO SCH (13:29)
[2018-01-11] MEDS: CEROVITE ADV FORMULA TAB PO SCH (13:30)
[2018-01-11] MEDS: HYDROCHLOROTHIAZIDE 25 MG TAB PO SCH (13:30)
[2018-01-11] MEDS: PANTOprazole SOD 40 MG TAB PO SCH (13:30)
[2018-01-11] MEDS: ASCORBIC ACID 500 MG TAB PO SCH (13:31)
[2018-01-11] MEDS: CHOLECALCIFEROL 1000 INTER.UNIT TAB PO SCH (13:31)
[2018-01-11] MEDS: RANITIDINE HCL 150 MG TAB PO SCH ×2 (13:32→20:51)
[2018-01-11] MEDS: FLUTICASONE PROPIONATE NA SPR 16 GM BTL NAE SCH (13:33)
[2018-01-11] MEDS: BUDESONIDE/FORMOTEROL FUMARATE 160/4.5 60 PUFFS/INHALER INH SCH ×2 (13:33→20:52)
[2018-01-11] MEDS: EZETIMIBE 10MG TAB PO SCH (20:50)
[2018-01-11] MEDS: SIMVASTATIN 20 MG TAB PO SCH (20:50)
[2018-01-11] MEDS: MONTELUKAST SOD 10 MG TAB PO SCH (20:51)
[2018-01-11] MEDS: DOCUSATE SODIUM/SENNA 50/8.6MG TAB PO SCH (20:51)
[2018-01-11] MEDS: TOCOPHERYL, DL-ALPHA 400 INTER.UNIT CAP PO SCH (20:51)
[2018-01-11] MEDS: DONEPEZIL HCL 10 MG TAB PO SCH (20:52)
[2018-01-11] MEDS: MEMANTINE HCL 14 MG PO SCH (20:53)
[2018-01-11] MEDS: DULOXETINE (CYMBALTA) 30 MG CAP PO SCH (20:53)
--- NOTE | 2018-01-11 21:01 | Progress Note ---
Subjective Date of Service: Jan 11, 2018. Subjective Pt evaluation today including: conversation w/ patient, physical exam, chart review, lab review, review of studies, conversation w/ [employer] consultant report abd distension, mild tender, passing gas, but no bm, no n/v, no heeve, denies f/c Problem List Medical Problems: (1) Orthostasis Status: Acute Review of Systems Constitutional: No fever, No chills, No sweats, No weight loss, No weakness, No fatigue, No problem reported Eyes: No worsening of vision, No eye pain, No redness, No discharge, No diplopia ENT: No hearing loss, No unusual epistaxis, No nasal symptoms, No sore throat, No tinnitus, No dental problems, No trouble swallowing Respiratory: No cough, No sputum, No wheezing, No shortness of breath, No dyspnea on exertion, No dyspnea at rest, No hemoptysis Cardiac: No chest pain, No orthopnea, No PND, No edema, No claudication, No palpitations Abdomen: + see HPI, + pain, + constipation, No nausea, No vomiting, No diarrhea Musculoskeletal: + joint pain, No muscle pain, No swelling, No calf pain Female : No dysuria, No urinary frequency, No hematuria, No incontinence, No abnormal vaginal bleeding, No vaginal discharge Neurologic: No memory loss, No paralysis, No weakness, No numbness/tingling, No vertigo, No balance problems Psychiatric: No depression symptoms, No anhedonism, No anxiety, No insomnia, No substance abuse Heme: No abnormal bleeding/bruising, No clotting problems, No swollen lymph nodes, No night sweats Endo: No fatigue, No excessive thirst, No excessive urination Skin: No rash, No itch, No new/changing skin lesions, No color change, No bleeding Objective Vital Signs Date Time Temp Pulse Resp B/P (MAP) Pulse Ox O2 Delivery O2 Flow Rate FiO2 01/11/18 08:22 Room Air 01/11/18 07:40 36.7 93 18 132/81 (98) 94 Room Air 01/10/18 23:43 Room Air 01/10/18 23:02 36.8 99 20 152/70 (97) 93 Room Air Physical Exam General Appearance: WD/WN, no apparent distress, + obese Eyes: normal inspection, PERRL, EOMI, sclerae normal ENT: normal ENT inspection, hearing grossly normal, pharynx normal Neck: supple, no adenopathy, thyroid normal, no JVD, no carotid bruits, trachea midline Respiratory/Chest: chest non-tender, normal breath sounds, no respiratory distress, no accessory muscle use, + decreased breath sounds Cardiovascular: regular rate, rhythm, no edema, no gallop, no JVD, no murmur Abdomen: non tender, soft, no organomegaly, no pulsatile mass, + abnormal bowel sounds, + distended Extremities: normal range of motion, non-tender, normal inspection, no pedal edema, no calf tenderness, normal capillary refill, pelvis stable, + swelling (1 +) Neurologic/Psychiatric: survey party chief II-XII nml as tested, no motor/sensory deficits, alert, normal mood/affect, oriented x 3 Skin: normal color, warm/dry, no rash Lymphatic: no adenopathy Laboratory Results Last 24 Hours Test 01/11/18 05:21 01/11/18 08:02 01/11/18 12:21 01/11/18 17:51 White Blood Count 10.52 K/uL Red Blood Count 3.47 M/uL Hemoglobin 9.3 g/dL Hematocrit 28.5 % Mean Corpuscular Volume 82.1 fL Mean Corpuscular Hemoglobin 26.8 pg Mean Corpuscular Hemoglobin Concent 32.6 g/dl Platelet Count 202 K/uL Mean Platelet Volume 8.8 fL Neutrophils (%) (Auto) 74.2 % Lymphocytes (%) (Auto) 12.0 % Monocytes (%) (Auto) 11.5 % Eosinophils (%) (Auto) 1.4 % Basophils (%) (Auto) 0.3 % Neutrophils # (Auto) 7.81 K/uL Lymphocytes # (Auto) 1.26 K/uL Monocytes # (Auto) 1.21 K/uL Eosinophils # (Auto) 0.15 K/uL Basophils # (Auto) 0.03 K/uL RDW Standard Deviation 58.3 fL RDW Coefficient of Variation 19.6 % Immature Granulocyte % (Auto) 0.6 % Immature Granulocyte # (Auto) 0.06 K/uL Sodium Level 129 mmol/L Potassium Level 3.6 mmol/L Chloride Level 92 mmol/L Carbon Dioxide Level 30 mmol/L Anion Gap 7.0 mmol/L Blood Urea Nitrogen 10 mg/dl Creatinine 0.72 mg/dl Est Creatinine Clear Calc Drug Dose 69.6 ml/min Estimated GFR () 98.3 Estimated GFR (Non- 84.9 BUN/Creatinine Ratio 13.6 Random Glucose 175 mg/dl Calcium Level 8.6 mg/dl Phosphorus Level 2.3 mg/dl Magnesium Level 1.8 mg/dl Total Bilirubin 0.9 mg/dl Aspartate Amino Transf (AST/SGOT) 24 U/L Alanine Aminotransferase (ALT/SGPT) 22 U/L Alkaline Phosphatase 44 U/L Total Protein 6.0 gm/dl Albumin 2.8 gm/dl Globulin 3.2 gm/dl Albumin/Globulin Ratio 0.9 Thyroid Stimulating Hormone (TSH) 4.320 uIu/ml Bedside Glucose 187 mg/dl 135 mg/dl 185 mg/dl Test 01/11/18 20:02 Bedside Glucose 165 mg/dl Assessment and Plan 72-year-old female with acute blood loss anemia which required 4 pack of red blood cells and 2 FFP has been hemodynamically stable hemoglobin level at 8.5 this morning, asymptomatic, continue stable, transferred to med/surg s/p decompression and fusion per Dr. Pantoja, pain control, DVT prophylaxis, PT OT, discharge plan will be per primary team T2DM: GERD: HTN: Hypothyroidism: Depression: Above condition is stable continue current medication constipation vs. ileus ? KUB neg, continue bowel regimen Morbid obesity, BMI 45.3 kg/m*m Hypokalemia and hypo-mag is replaced f/u labs Continued [facility] stay due to: ambulation difficulties Discharge planning: rehab hospital
[2018-01-11] MEDS: ALUMINUM/MAGNESIUM SUSP 30 ML UDC PO PRN (22:42)
[2018-01-11 22:50] VITALS: BP 136/70; PULSE 98; TEMP 36.3; O2SAT 93
[2018-01-12] MEDS: POLYETHYLENE (MIRALAX) 17 GM PACK PO SCH ×2 (00:05→05:12)
[2018-01-12] MEDS: ALUMINUM/MAGNESIUM SUSP 30 ML UDC PO PRN ×2 (04:07→22:16)
[2018-01-12] MEDS ORDERED: NURSING DECISION MEDICATION ORDER SCH (05:00)
[2018-01-12] MEDS: LEVOTHYROXINE 100 MCG TAB PO SCH (05:31)
[2018-01-12] MEDS: OXYCODONE HCL IR 5 MG TAB (IMMEDIATE RELEASE) PO PRN ×3 (05:35→18:38)
[2018-01-12 06:20] LABS: HEMATOCRIT 26.3 % (37-47); HEMOGLOBIN 8.7 g/dL (12.0-16.0); MEAN CORPUSCULAR HEMOGLOBIN 27.4 pg (25-34); MEAN CORPUSCULAR HGB CONC 33.1 g/dl (32-36); MEAN PLATELET VOLUME 8.8 fL (7.4-10.4); PLATELET COUNT 202 K/uL (130-400); RED CELL DISTRIBUTION WIDTH CV 19.9 % (11.5-14.5); RED CELL DISTRIBUTION WIDTH SD 58.7 fL (36.4-46.3); WHITE BLOOD COUNT 6.99 K/uL (4.8-10.8)
[2018-01-12 07:04] VITALS: BP 126/79; PULSE 95; TEMP 36.8; O2SAT 94
[2018-01-12 07:04] LABS: ALBUMIN 2.6 gm/dl (3.4-5.0); CALCIUM 8.3 mg/dl (8.5-10.1); CREATININE 0.68 mg/dl (0.60-1.20); POTASSIUM 3.4 mmol/L (3.5-5.1)
[2018-01-12 07:07] LABS: TOTAL PROTEIN 5.6 gm/dl (6.4-8.2)
[2018-01-12] MEDS ORDERED: POTASSIUM CHLORIDE 10 MEQ TABCR PO STA (07:49)
--- NOTE | 2018-01-12 08:23 | Orthopedic Progress Note ---
Orthopedic Progress Note Date of Service Jan 12, 2018. Subjective Post OP Day: 4 Reports: light headedness Additional Notes: Genius postoperatively for multilevel lumbar decompression fusion. Yesterday she had some orthostatic spells associated with dizziness. She has had a bowel movement since then. Her abdominal pain has resolved. KUB was ordered yesterday and showed no acute findings. SHADIA drain output last shift was 60 cc. H&H is 28.7 and 26.3 respectively. No back pain or leg pain. Objective calves soft nontender, N/V intact, dressing C/D/I, A&O x3 She is lying in bed. No obvious distress. Lower extremities Are soft nontender. Neurovascular intact bilaterally. Date Time Temp Pulse Resp B/P (MAP) Pulse Ox O2 Delivery O2 Flow Rate FiO2 01/12/18 07:04 36.8 95 16 126/79 (95) 94 Room Air 01/11/18 22:50 36.3 98 16 136/70 (92) 93 Room Air 01/11/18 20:00 Room Air 01/11/18 08:22 Room Air Laboratory Results 24 Hours: Test 01/12/18 05:57 Hematocrit 26.3 % Hemoglobin 8.7 g/dL Assessment & Plan Assessment: Post operative day 4 thoracolumbar decompression fusion Plan: She has some electrolyte abnormalities today. I will leave this to medicine. Will maintain SHADIA drain until tomorrow. Continue with bowel regimen. Continue with physical therapy. At this point in time she does have a bed at [facility] available. I anticipate will be able to discharge her to [facility] tomorrow. Inhouse Planning DVT Prophylaxis: Gayle Duke Discharge Planning Discharge Planning: rehab hospital DVT Prophylaxis: Leilani
[2018-01-12] MEDS: FERROUS SULFATE 325 MG TAB PO SCH (09:00)
[2018-01-12] MEDS: DOCUSATE SODIUM 100 MG CAP PO SCH ×2 (09:00→22:01)
[2018-01-12] MEDS: LISINOPRIL 20 MG TAB PO SCH (09:00)
[2018-01-12] MEDS: CALCIUM 600MG + VIT D 400 IU TAB PO SCH ×2 (09:00→21:00)
[2018-01-12] MEDS ORDERED: INSULIN GLARGINE SOLOSTAR 100 UNITS/ML 3 ML PEN SC SCH (09:30)
[2018-01-12] MEDS: FLUTICASONE PROPIONATE NA SPR 16 GM BTL NAE SCH (09:39)
[2018-01-12] MEDS: BUDESONIDE/FORMOTEROL FUMARATE 160/4.5 60 PUFFS/INHALER INH SCH ×2 (09:39→21:56)
[2018-01-12] MEDS: INSULIN ASPART 100 UNITS/ML 3 ML PEN SC SCH ×4 (09:41→21:00)
[2018-01-12] MEDS: METFORMIN HCL 500 MG TAB PO SCH ×2 (09:49→18:38)
[2018-01-12] MEDS: ASPIRIN 81 MG ECTAB PO SCH (09:51)
[2018-01-12] MEDS: DULOXETINE HCL 60 MG CAP PO SCH (09:51)
[2018-01-12] MEDS: FoLIC ACID TAB 400 MCG TAB PO SCH (09:52)
[2018-01-12] MEDS: PANTOprazole SOD 40 MG TAB PO SCH (10:02)
[2018-01-12] MEDS: ASCORBIC ACID 500 MG TAB PO SCH (10:02)
[2018-01-12] MEDS: HYDROCHLOROTHIAZIDE 25 MG TAB PO SCH (10:02)
[2018-01-12] MEDS: CEROVITE ADV FORMULA TAB PO SCH (10:02)
[2018-01-12] MEDS: CHOLECALCIFEROL 1000 INTER.UNIT TAB PO SCH (10:03)
[2018-01-12] MEDS: RANITIDINE HCL 150 MG TAB PO SCH ×2 (10:03→22:01)
[2018-01-12] MEDS: HYDROmorphone INJ 0.5 MG/0.5 ML SYR IV PRN ×2 (13:22→22:04)
[2018-01-12 15:18] VITALS: BP 100/63; PULSE 100; TEMP 36.9; O2SAT 97
--- NOTE | 2018-01-12 15:34 | Progress Note ---
Subjective Date of Service: Jan 12, 2018. Subjective Pt evaluation today including: conversation w/ patient, physical exam, chart review, lab review, review of studies, review of inpatient medication list Feeling much better, has bowel movement, no other complaint Problem List Medical Problems: (1) Orthostasis Status: Acute Review of Systems Constitutional: + weakness, + fatigue, No fever, No chills, No sweats, No weight loss, No problem reported Eyes: No worsening of vision, No eye pain, No redness, No discharge, No diplopia ENT: No hearing loss, No unusual epistaxis, No nasal symptoms, No sore throat, No tinnitus, No dental problems, No trouble swallowing Respiratory: No cough, No sputum, No wheezing, No dyspnea on exertion, No dyspnea at rest, No hemoptysis Cardiac: + edema, No chest pain, No orthopnea, No PND, No claudication, No palpitations Abdomen: No pain, No nausea, No vomiting, No diarrhea, No constipation Musculoskeletal: + joint pain, + swelling, No muscle pain, No calf pain Female : No dysuria, No urinary frequency, No hematuria, No incontinence, No abnormal vaginal bleeding, No vaginal discharge Neurologic: No memory loss, No paralysis, No weakness, No numbness/tingling, No vertigo, No balance problems Psychiatric: No depression symptoms, No anhedonism, No anxiety, No insomnia, No substance abuse Heme: No abnormal bleeding/bruising, No clotting problems, No swollen lymph nodes, No night sweats Endo: No fatigue, No excessive thirst, No excessive urination Skin: No rash, No itch, No new/changing skin lesions, No color change, No bleeding Objective Vital Signs Date Time Temp Pulse Resp B/P (MAP) Pulse Ox O2 Delivery O2 Flow Rate FiO2 01/12/18 15:18 36.9 100 16 100/63 (75) 97 Room Air 01/12/18 08:30 Room Air 01/12/18 07:04 36.8 95 16 126/79 (95) 94 Room Air 01/11/18 22:50 36.3 98 16 136/70 (92) 93 Room Air 01/11/18 20:00 Room Air Physical Exam General Appearance: WD/WN, no apparent distress, + obese Eyes: normal inspection, PERRL, EOMI, sclerae normal ENT: normal ENT inspection, hearing grossly normal, pharynx normal Neck: supple, no adenopathy, thyroid normal, no JVD, no carotid bruits, trachea midline Respiratory/Chest: chest non-tender, normal breath sounds, no respiratory distress, no accessory muscle use, + decreased breath sounds Cardiovascular: regular rate, rhythm, no edema, no gallop, no JVD, no murmur Abdomen: normal bowel sounds, non tender, soft, no organomegaly, no pulsatile mass Extremities: normal range of motion, non-tender, normal inspection, no pedal edema, no calf tenderness, normal capillary refill, pelvis stable, + swelling 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, no motor/sensory deficits, alert, normal mood/affect, oriented x 3 Skin: normal color, warm/dry, no rash Lymphatic: no adenopathy Laboratory Results Last 24 Hours Test 01/11/18 17:51 01/11/18 20:02 01/12/18 05:57 01/12/18 08:12 Bedside Glucose 185 mg/dl 165 mg/dl 183 mg/dl White Blood Count 6.99 K/uL Red Blood Count 3.17 M/uL Hemoglobin 8.7 g/dL Hematocrit 26.3 % Mean Corpuscular Volume 83.0 fL Mean Corpuscular Hemoglobin 27.4 pg Mean Corpuscular Hemoglobin Concent 33.1 g/dl RDW Standard Deviation 58.7 fL RDW Coefficient of Variation 19.9 % Platelet Count 202 K/uL Mean Platelet Volume 8.8 fL Sodium Level 128 mmol/L Potassium Level 3.4 mmol/L Chloride Level 91 mmol/L Carbon Dioxide Level 30 mmol/L Anion Gap 7.0 mmol/L Blood Urea Nitrogen 14 mg/dl Creatinine 0.68 mg/dl Est Creatinine Clear Calc Drug Dose 73.7 ml/min Estimated GFR () 102.7 Estimated GFR (Non- 88.6 BUN/Creatinine Ratio 20.1 Random Glucose 163 mg/dl Calcium Level 8.3 mg/dl Total Bilirubin 0.8 mg/dl Aspartate Amino Transf (AST/SGOT) 19 U/L Alanine Aminotransferase (ALT/SGPT) 20 U/L Alkaline Phosphatase 41 U/L Total Protein 5.6 gm/dl Albumin 2.6 gm/dl Globulin 3.0 gm/dl Albumin/Globulin Ratio 0.9 Test 01/12/18 08:14 01/12/18 10:00 01/12/18 11:59 Osmolality 269 mOsm/kg Urine Osmolality 480 mOms/kg Bedside Glucose 152 mg/dl Assessment and Plan 72-year-old female with acute blood loss anemia which required 4 pack of red blood cells and 2 FFP has been hemodynamically stable hemoglobin level at 8.7 today this morning, asymptomatic, continue stable s/p decompression and fusion per Dr. Pantoja, pain control, DVT prophylaxis, PT OT, discharge plan will be per primary team Acute blood loss anemia was getting for you need PRBC,, follow-up hemoglobin levels transfuse if needed T2DM: Stable well-controlled A1c 6.4, GERD: HTN: Hypothyroidism: Depression: Above condition is stable continue current medication constipation vs. ileus ? KUB neg, stool bowel movement today For hyponatremia, well if free water restriction 1 and half liter daily, check urine osmolality and serum osmolality Morbid obesity, BMI 45.3 kg/m*m Hypokalemia and hypo-mag is replaced f/u labs Continued [facility] stay due to: ambulation difficulties Discharge planning: rehab hospital
[2018-01-12] MEDS: MONTELUKAST SOD 10 MG TAB PO SCH (22:01)
[2018-01-12] MEDS: TOCOPHERYL, DL-ALPHA 400 INTER.UNIT CAP PO SCH (22:01)
[2018-01-12] MEDS: DONEPEZIL HCL 10 MG TAB PO SCH (22:01)
[2018-01-12] MEDS: DULOXETINE (CYMBALTA) 30 MG CAP PO SCH (22:02)
[2018-01-12] MEDS: EZETIMIBE 10MG TAB PO SCH (22:02)
[2018-01-12] MEDS: SIMVASTATIN 20 MG TAB PO SCH (22:02)
[2018-01-12] MEDS: DOCUSATE SODIUM/SENNA 50/8.6MG TAB PO SCH (22:02)
[2018-01-12] MEDS: MEMANTINE HCL 14 MG PO SCH (22:04)
[2018-01-12 23:02] VITALS: BP 120/70; PULSE 97; TEMP 36.7; O2SAT 96
[2018-01-13 04:00] VITALS: BP 173/109; PULSE 120; O2SAT 93
[2018-01-13 04:12] VITALS: BP 123/72; PULSE 90
[2018-01-13 06:13] VITALS: BP 133/67; PULSE 80; TEMP 36.8; O2SAT 96
[2018-01-13] MEDS: ALUMINUM/MAGNESIUM SUSP 30 ML UDC PO PRN (06:33)
[2018-01-13] MEDS: LEVOTHYROXINE 100 MCG TAB PO SCH (06:33)
[2018-01-13 06:58] LABS: HEMATOCRIT 25.9 % (37-47); HEMOGLOBIN 8.5 g/dL (12.0-16.0); MEAN CELL VOLUME 83.5 fL (80-100); MEAN CORPUSCULAR HEMOGLOBIN 27.4 pg (25-34); MEAN CORPUSCULAR HGB CONC 32.8 g/dl (32-36); MEAN PLATELET VOLUME 8.7 fL (7.4-10.4); PLATELET COUNT 210 K/uL (130-400); RED CELL DISTRIBUTION WIDTH SD 60.2 fL (36.4-46.3); WHITE BLOOD COUNT 6.53 K/uL (4.8-10.8)
[2018-01-13 07:36] LABS: ALBUMIN 2.4 gm/dl (3.4-5.0); CALCIUM 8.2 mg/dl (8.5-10.1); CREATININE 0.71 mg/dl (0.60-1.20); POTASSIUM 3.5 mmol/L (3.5-5.1)
[2018-01-13 07:39] LABS: TOTAL PROTEIN 5.4 gm/dl (6.4-8.2)
[2018-01-13] MEDS: FoLIC ACID TAB 400 MCG TAB PO SCH (08:14)
[2018-01-13] MEDS: FERROUS SULFATE 325 MG TAB PO SCH (08:14)
[2018-01-13] MEDS: METFORMIN HCL 500 MG TAB PO SCH (08:15)
[2018-01-13] MEDS: DULOXETINE HCL 60 MG CAP PO SCH (08:15)
[2018-01-13] MEDS: CEROVITE ADV FORMULA TAB PO SCH (08:15)
[2018-01-13] MEDS: CALCIUM 600MG + VIT D 400 IU TAB PO SCH (08:15)
[2018-01-13] MEDS: CHOLECALCIFEROL 1000 INTER.UNIT TAB PO SCH (08:15)
[2018-01-13] MEDS: PANTOprazole SOD 40 MG TAB PO SCH (08:15)
[2018-01-13] MEDS: ASCORBIC ACID 500 MG TAB PO SCH (08:16)
[2018-01-13] MEDS: LISINOPRIL 20 MG TAB PO SCH (08:17)
[2018-01-13] MEDS: DOCUSATE SODIUM 100 MG CAP PO SCH (08:17)
[2018-01-13] MEDS: ASPIRIN 81 MG ECTAB PO SCH (08:17)
[2018-01-13] MEDS: RANITIDINE HCL 150 MG TAB PO SCH (08:18)
[2018-01-13] MEDS: HYDROCHLOROTHIAZIDE 25 MG TAB PO SCH (08:18)
[2018-01-13] MEDS: FLUTICASONE PROPIONATE NA SPR 16 GM BTL NAE SCH (08:19)
[2018-01-13] MEDS: BUDESONIDE/FORMOTEROL FUMARATE 160/4.5 60 PUFFS/INHALER INH SCH (08:19)
[2018-01-13] MEDS ORDERED: MAGNESIUM OXIDE 400 MG TAB PO ONE (08:30)
[2018-01-13] MEDS: INSULIN ASPART 100 UNITS/ML 3 ML PEN SC SCH (08:34)
--- NOTE | 2018-01-13 08:44 | Orthopedic Progress Note ---
Orthopedic Progress Note Date of Service Jan 13, 2018. Subjective Reports: feeling well Additional Notes: Patient is status post multilevel lumbar decompression fusion. She is continuing to make progress. She has had a bowel movement. She has back pain but no radicular leg pain. She is up and ambulatory in physical therapy and making progress. SHADIA drain is diminishing. No new complaints. Objective calves soft nontender, N/V intact, dressing C/D/I, A&O x3 She is sitting in a chair eating breakfast. No acute distress. Lower extremities calves are soft nontender bilaterally. Neurovascular intact bilaterally. Lumbar dressing is clean dry and intact. Date Time Temp Pulse Resp B/P (MAP) Pulse Ox O2 Delivery O2 Flow Rate FiO2 01/13/18 06:13 36.8 80 18 133/67 (89) 96 Room Air 01/13/18 04:12 90 123/72 (89) 01/12/18 23:02 36.7 97 18 120/70 (87) 96 Room Air 01/12/18 21:15 Room Air 01/12/18 15:18 36.9 100 16 100/63 (75) 97 Room Air Laboratory Results 24 Hours: Test 01/13/18 06:03 Hematocrit 25.9 % Hemoglobin 8.5 g/dL Assessment & Plan Assessment: Post operative day 5 thoracolumbar decompression fusion Plan: This point in time she appears to be medically stable. We will discharge her to [facility] today. All questions were answered in detail. Inhouse Planning DVT Prophylaxis: Gayle Duke Discharge Planning Discharge Planning: rehab hospital DVT Prophylaxis: Leilani
--- NOTE | 2018-01-13 08:47 | Discharge Summary ---
Orthopedic Discharge Summary Admission Date/Reason Jan 08, 2018 at 14:15 Spinal Stenosis. Discharge Date/Disposition Jan 13, 2018 Rehab Diagnosis Principal Diagnosis: Lumbar spinal stenosis Procedure(s) Performed Removal of posterior lower lumbar instrumentation. Lumbar decompression. Instrument fusion T11-S1 including iliac bolts. Consultations Hospitalist Admission Physical Exam As per Admitting History & Physical. Hospital Course In PACU patient started to have some chest pain. She is transferred to the ICU for monitoring. This was felt to be a noncardiac event. She did have significant postoperative blood loss anemia. She did require 2 units packed red blood cells intraoperatively. She has been stable since. She has had hypokalemia and hyponatremia postoperatively and this has been corrected. She is continued to make progress in physical therapy. Pain is under control. She is being discharged to [facility] on postoperative day 5. Discharge Instructions Please refer to the electronic Patient Visit Report (Discharge Instructions) for additional information.
--- NOTE | 2018-01-13 08:52 | Discharge Instructions ---
Discharge Instructions Date of Service Jan 13, 2018. Admission Reason for Admission: Spinal Stenosis Discharge Discharge Diagnosis / Problem: s/p multilevel thoracolumbar decompression/ fusion Discharge Goals Goal(s): Decrease discomfort, Improve function, Increase independence Activity Recommendations Activity Level: Up Ad Jeanine . Additional Information Patient informed of condition: Yes Advance Directives: Yes DNR: No Level of Care: Acute Rehab Communicable Disease: No Prognosis: Improving Sanabria Catheter: No Current Hospital Diet Patient's current hospital diet: Regular Diet, Diabetes Type 2 Diet Discharge Diet Recommended Diet: Diabetes Type 2 Diet Procedures Procedures Performed: 1. Removal of posterior segmental instrumentation L2 L5. #2 expiration of fusion L2-L5. #3 lumbar decompression medial facetectomies foraminotomies T12-L1 L1-L2. #4 posterior spinal fusion T11-S1. #5 bilateral SI joint fusions. #6 placement of posterior segmental instrumentation T11-S1 with bilateral iliac bolts. #7 interbody fusion L1 to #8 placement peek cage 9 x 22 mm at L1 to. #9 placement of locally harvested Ding's allograft in the posterior lateral gutters. #10 placement InFUSE collagen sponge, mass graft to posterior gutters and ostium bone graft in the interbody space. Pending Studies Studies pending at discharge: no Laboratory Results Hemoglobin A1c Test 12/19/17 12:43 Range/Units Estimated Average Glucose 137 mg/dl Hemoglobin A1c 6.4 H 4.5-5.6 % Lipid Panel Test 11/10/17 05:25 Range/Units Triglycerides Level 174 H 0-150 mg/dl Cholesterol Level 120 0-200 mg/dl HDL Cholesterol 68 mg/dl Cholesterol/HDL Ratio 1.8 LDL Cholesterol, Calculated 17 mg/dl Medical Emergencies . Who to Call and When: Medical Emergencies: If at any time you feel your situation is an emergency, please call 911 immediately. . Non-Emergent Contact Non-Emergency issues call your: Primary Care Provider Call Non-Emergent contact if: you have a fever, your pain is not controlled, your pain is worsening, your pain is unusual for you, your pain is concerning you, wound has increased drainage, wound has increased redness, wound has increased pain . . "Provider Documentation" section prepared by Chelita Marie. . Scrapper Recommendations Scrapper Recommendations: ACTIVITY RECOMMENDATIONS: SELF CARE INSTRUCTIONS AFTER THORACIC/LUMBAR FUSIONS 1. You may walk to your tolerance. It is good exercise for your legs and back. Expect some back and intermittent leg aches and pains. 2. You may perform "counter-top" level activities (make a sandwich, marcia with a project, etc.). 3. No bending or lifting of more than 10 pounds or back twisting of any nature (roll like a log when turning in bed). 4. You may ride in a car for 20-30 minutes at a time. No driving until after your first visit with your doctor. 5. Frequent changes of position and restricting sitting to 30 minutes at a time will help limit the amount of back spasms and stiffness you may experience. 6. You may discontinue the use of ambulatory aids (cane, crutches, etc.) once your strength and confidence allow. 7. You may infantry unit leader the shower and let water strike your incision when you arrive home at least once daily. Do not take a tub bath, sit in a hot tub or go into a swimming pool until after your first recheck in the office. SPECIAL CARE INSTRUCTIONS: VERY IMPORTANT TO READ AND REVIEW A. Your surgical incision has been closed with a cosmetic suture under the skin that will dissolve in about 6 weeks. In 14 days, you can use a pair of clean scissors and cut the suture that is left outside of the skin at the ends of your incision. 1. The small skin tapes can be removed 7 days after surgery if they have not fallen off by that point. 2. You may keep the wound open to air as much as possible to promote healing after post-op day number 5 unless told otherwise by your doctor. 3. If you think the wound looks like it is becoming infected (redness or worsening drainage) and/or you are experiencing fever, chill or worsening back pain and muscle spasms, contact the office so that we may evaluate you as soon as possible. B. Complications are uncommon, but please contact us if you have any signs or symptoms of: 1. wound infection (fever higher than 102.5 degrees F, redness, separation of wound, drainage, or increasing pain from the incision) 2. blood clots in legs (pain, swelling, redness and warmth in legs) 3. urinary tract infection (fever higher than 102.5 degrees F, burning upon urination or increased frequency of urination) 4. nerve problems (inability to walk on your toes or heels, numbness, loss of bowel or bladder control) 5. any other symptoms that concern you C. Please call the office at if you have any concerns or questions about your operation or recovery. D. No smoking! Smoking drastically decreases the chance of a solid fusion. E. Do not take any anti-inflammatory medications (Indocin, Advil, Motrin, Aspirin, Naprosyn, etc.) as these may inhibit the chance of a solid fusion. Tylenol is okay to take for pain. MANAGING PAIN AFTER SPINAL SURGERY 1. Narcotic medication is intended for short-term use and will be provided for surgical pain. Surgical pain usually lasts for a period of 4-6 weeks. Narcotic medication includes Percocet, Vicodin, Darvocet, Tylenol #3 or Lortab. 2. Longer-term pain is more appropriately treated with non-narcotic medication such as Tylenol ES. 3. Muscle spasm is not appropriately treated with narcotics. Muscle relaxers such as Soma, Flexeril or Skelaxin can be used along with Tylenol ES. 4. Remember that we all live with some "aches and pains". This is not unusual or uncommon after an injury or as we get older. a. Back pain is expected and may include muscle spasms for 4 to 6 weeks after surgery. The pain should gradually improve. If the pain worsens for no apparent reason, please contact the office. b. Intermittent leg pain may also be experienced and should not be concerned about unless it worsens for no apparent reason. If so, please contact the office. 5. We will provide appropriate medication within the normal guidelines of their prescribed use. We will also be very cautious and aware of potential abuse and extended duration of patients' medication needs. a. Pain medications are for your comfort and to assist with sleep and rest so that the tissue can heal. They are not provided in order to return to normal activity and should not be used through the day. To do so or worsening pain at night can result from ongoing tissue damage and development of tolerance to the prescribed medicine. 6. Please allow 2-3 days to process refills. Prescriptions will not be mailed but must be picked up at the office. FOLLOW UP VISIT: Keep your scheduled follow-up appointment. Any questions, please call the office at . Core Measure Problem Core Measures: None
[2018-01-13] MEDS ORDERED: OXYC-609 PO (08:53)
[2018-01-13] MEDS ORDERED: INSULIN GLARGINE SOLOSTAR 100 UNITS/ML 3 ML PEN SC SCH (09:00)
[2018-01-13] MEDS: OXYCODONE HCL IR 5 MG TAB (IMMEDIATE RELEASE) PO PRN ×2 (09:51→09:56)
--- NOTE | 2018-01-13 09:55 | Hospitalist Progress Note ---
Hospitalist Progress Note Date of Service Jan 13, 2018. Subjective Pt evaluation today including: conversation w/ patient, physical exam, chart review, lab review, review of inpatient medication list Patient seen and evaluated. No acute events overnight. Hemoglobin remains stable at 8.4 and is asymptomatic with this. No further indication for transfusion at this time. Reports still having a lot of pain but controlled with medications. Eager to go to rehab today. Medically suitable for D/C. Would recommend F/U labs in the next 3-4 days to assess for stabilization/improvement with blood counts Constitutional: No fever, No chills Respiratory: No cough, No shortness of breath Cardiovascular: No chest pain Abdomen: + problem reported (ongoing acid reflux), No pain, No nausea, No vomiting, No diarrhea, No constipation Musculoskeletal: + problem reported (low back pain - controlled with meds) Female : No dysuria Heme: No abnormal bleeding/bruising Medications Current Inpatient Medications Medications (Trade) Dose Ordered Sig/Tung Route Start Time Stop Time Status Last Admin Dose Admin Ondansetron HCl (Zofran Inj) 4 mg Q6H PRN IV 01/08/18 11:15 02/07/18 11:14 Metoclopramide HCl (Reglan Inj) 10 mg Q6H PRN IV 01/08/18 11:15 02/07/18 11:14 Lorazepam (Ativan Tab) 0.5 mg Q8H PRN PO 01/08/18 11:15 02/07/18 11:14 Pneumococcal Polysaccharide Vaccine 1 ea PRN PRN N/A 01/08/18 11:15 02/07/18 11:14 Influenza Virus Vacc Triv Types A&B 1 ea PRN PRN N/A 01/08/18 11:15 02/07/18 11:14 Bisacodyl (Dulcolax Supp) 10 mg DAILY PRN TX 01/08/18 11:15 02/07/18 11:14 01/11/18 10:28 10 MG Magnesium Hydroxide (Milk Of Magnesia Susp) 30 ml DAILY PRN PO 01/08/18 11:15 02/07/18 11:14 01/11/18 19:42 30 ML Hydromorphone HCl (Dilaudid Inj) 0.5 mg Q3H PRN IV 01/09/18 06:00 01/23/18 05:59 01/12/18 22:04 0.5 MG Oxycodone HCl (Roxicodone Immediate Rel Tab) 5-10mg prn moderate to sev... Q4H PRN PO 01/09/18 06:00 01/23/18 05:59 01/12/18 18:38 10 MG Acetaminophen (Tylenol Tab) 1,000 mg Q8H PRN PO 01/08/18 11:15 02/07/18 11:14 Naloxone HCl (Narcan Inj) 0.1 mg Q5M PRN IV 01/08/18 11:15 02/07/18 11:14 Senna/Docusate Sodium (Senokot S Tab) 2 tab HS PO 01/08/18 21:00 02/07/18 20:59 01/12/18 22:02 2 TAB Sodium Biphosphate/ Sodium Phosphate (Fleet Enema) 132 ml ONE PRN TX 01/08/18 11:15 02/07/18 11:14 01/11/18 14:32 132 ML Hydroxyzine HCl (Vistaril Tab) 25 mg Q8H PRN PO 01/08/18 11:15 02/07/18 11:14 Al Hydroxide/Mg Hydroxide (Maalox Susp) 30 ml Q6H PRN PO 01/08/18 11:15 02/07/18 11:14 01/13/18 06:33 30 ML Famotidine (Pepcid Tab) 20 mg Q12 PRN PO 01/08/18 11:15 02/07/18 11:14 01/12/18 00:14 20 MG Diphenhydramine HCl (Benadryl Cap) 25 mg Q6H PRN PO 01/08/18 11:15 02/07/18 11:14 01/09/18 01:59 25 MG Budesonide/ Formoterol Fumarate (Symbicort 160/ 4.5 Inh) 2 puffs BID INH 01/08/18 21:00 02/07/18 20:59 01/13/18 08:19 2 PUFFS Bupropion HCl (Wellbutrin Tab) 100 mg BID PO 01/08/18 21:00 02/07/18 20:59 01/13/18 08:16 100 MG Donepezil HCl (Aricept Tab) 10 mg HS PO 01/08/18 21:00 02/07/18 20:59 01/12/18 22:01 10 MG Duloxetine HCl (Cymbalta Cap) 30 mg HS PO 01/08/18 21:00 02/07/18 20:59 01/12/18 22:02 30 MG Duloxetine HCl (Cymbalta Cap) 60 mg QAM PO 01/09/18 09:00 02/08/18 08:59 01/13/18 08:15 60 MG Fluticasone Propionate (Flonase Nasal [place]) 2 sprays QAM YUDY 01/09/18 09:00 02/08/18 08:59 01/13/18 08:19 2 SPRAYS Hydrochlorothiazide (Hydrochlorothiazide Tab) 25 mg QAM PO 01/09/18 09:00 02/08/18 08:59 01/13/18 08:18 25 MG Lamotrigine (Lamictal Tab) 150 mg HS PO 01/08/18 21:00 02/07/18 20:59 01/12/18 22:03 150 MG Levothyroxine Sodium (Synthroid Tab) 100 mcg DAILYBB PO 01/09/18 06:00 02/08/18 05:59 01/13/18 06:33 100 MCG Pantoprazole Sodium (Protonix Tab) 40 mg QAM PO 01/09/18 09:00 02/08/18 08:59 01/13/18 08:15 40 MG Insulin Aspart (novoLOG ASPART) SLIDING SCALE If C... ACHS SC 01/08/18 16:15 02/07/18 16:14 01/13/18 08:34 6 UNITS Glucose (Glucose 40% Gel) 15-30 GRAMS 15 GRAMS... UD PRN PO 01/08/18 16:15 02/07/18 16:14 Glucose (Glucose Chew Tab) 4-8 Tablets 4 Tabl... UD PRN PO 01/08/18 16:15 02/07/18 16:14 Dextrose (Dextrose 50% 50ML Syringe) 25-50ML OF 50% DW IV FOR... UD PRN IV 01/08/18 16:15 02/07/18 16:14 Glucagon (Glucagon Inj) 1 mg UD PRN SQ 01/08/18 16:15 02/07/18 16:14 Ascorbic Acid (Vitamin C Tab) 500 mg QAM PO 01/09/18 09:00 02/08/18 08:59 01/13/18 08:16 500 MG Ferrous Sulfate (Feosol Tab) 325 mg QAM PO 01/09/18 09:00 02/08/18 08:59 01/13/18 08:14 325 MG Albuterol (Proair Hfa) 2 puffs Q4 PRN INH 01/08/18 23:30 02/07/18 23:29 01/09/18 08:36 2 PUFFS Menthol (Nice Joy) 1 joy PRN PRN JOY 01/09/18 04:30 02/08/18 04:29 Trazodone HCl (Desyrel Tab) 50 mg HS PRN PO 01/09/18 05:45 02/08/18 05:44 Cyclobenzaprine HCl (Flexeril Tab) 5 mg TID PRN PO 01/09/18 08:45 02/08/18 08:44 01/09/18 09:42 5 MG Miscellaneous Information (Consult Glycemic Management Pharmacy) 1 ea UD PRN N/A 01/09/18 10:15 02/08/18 10:14 Aspirin (Ecotrin Tab) 81 mg QAM PO 01/09/18 12:00 02/08/18 11:59 01/13/18 08:17 81 MG Calcium/Vitamin D (Caltrate Plus Tab) 1 tab BID PO 01/09/18 12:00 02/08/18 11:59 01/13/18 08:15 1 TAB Cholecalciferol (Vitamin D Tab) 1,000 inter.unit QAM PO 01/09/18 12:00 02/08/18 11:59 01/13/18 08:15 1,000 INTER.UNIT Simvastatin (Zocor Tab) 20 mg HS PO 01/09/18 21:00 02/08/18 20:59 01/12/18 22:02 20 MG EZETIMIBE (Zetia Tab) 10 mg HS PO 01/09/18 21:00 02/08/18 20:59 01/12/18 22:02 10 MG Folic Acid (Folvite Tab) 800 mcg QAM PO 01/09/18 12:00 02/08/18 11:59 01/13/18 08:14 800 MCG Lisinopril (Zestril Tab) 20 mg QAM PO 01/09/18 12:00 02/08/18 11:59 01/13/18 08:17 20 MG Montelukast Sodium (Singulair Tab) 10 mg HS PO 01/09/18 21:00 02/08/18 20:59 01/12/18 22:01 10 MG Multivitamins/ Minerals (Multivitamin W/ Minerals Tab) 1 tab QAM PO 01/09/18 12:00 02/08/18 11:59 01/13/18 08:15 1 TAB [id number] Acetate (Vitamin E Cap) 400 interunit HS PO 01/09/18 21:00 02/08/18 20:59 01/12/18 22:01 400 INTERUNIT Ranitidine HCl (zANTac TAB) 150 mg BID PO 01/09/18 21:00 02/08/18 20:59 01/13/18 08:18 150 MG Metformin HCl (Glucophage Tab) 1,000 mg BIDM PO 01/10/18 12:00 02/09/18 11:59 01/13/18 08:15 1,000 MG Docusate Sodium (coLACE CAP) 100 mg BID PO 01/10/18 21:00 02/09/18 20:59 01/13/18 08:17 100 MG Polyethylene (Miralax Powder Packet) 17 gm DAILY PRN PO 01/10/18 16:30 02/09/18 16:29 Insulin Glargine (Lantus Solostar Pen) 15 units DAILY SC 01/13/18 09:00 02/12/18 08:59 01/13/18 08:36 15 UNITS Objective Vital Signs Date Time Temp Pulse Resp B/P (MAP) Pulse Ox O2 Delivery O2 Flow Rate FiO2 01/13/18 06:13 36.8 80 18 133/67 (89) 96 Room Air 01/13/18 04:12 90 123/72 (89) 01/12/18 23:02 36.7 97 18 120/70 (87) 96 Room Air 01/12/18 21:15 Room Air 01/12/18 15:18 36.9 100 16 100/63 (75) 97 Room Air Physical Exam General Appearance: WD/WN, no apparent distress Eyes: sclerae normal ENT: hearing grossly normal Neck: supple, no JVD, trachea midline Respiratory/Chest: lungs clear, normal breath sounds, no respiratory distress, no accessory muscle use Cardiovascular: regular rate, rhythm, no gallop, no murmur Abdomen: normal bowel sounds, non tender, soft Extremities: no calf tenderness Neurologic/Psychiatric: alert Skin: normal color, warm/dry Laboratory Results Last 24 Hours Test 01/12/18 10:00 01/12/18 11:59 01/12/18 17:01 01/12/18 20:38 Urine Osmolality 480 mOms/kg Bedside Glucose 152 mg/dl 157 mg/dl 111 mg/dl Test 01/13/18 06:03 01/13/18 06:04 White Blood Count 6.53 K/uL Red Blood Count 3.10 M/uL Hemoglobin 8.5 g/dL Hematocrit 25.9 % Mean Corpuscular Volume 83.5 fL Mean Corpuscular Hemoglobin 27.4 pg Mean Corpuscular Hemoglobin Concent 32.8 g/dl RDW Standard Deviation 60.2 fL RDW Coefficient of Variation 20.0 % Platelet Count 210 K/uL Mean Platelet Volume 8.7 fL Sodium Level 131 mmol/L Potassium Level 3.5 mmol/L Chloride Level 95 mmol/L Carbon Dioxide Level 30 mmol/L Anion Gap 6.0 mmol/L Blood Urea Nitrogen 12 mg/dl Creatinine 0.71 mg/dl Est Creatinine Clear Calc Drug Dose 70.5 ml/min Estimated GFR () 100.0 Estimated GFR (Non- 86.3 BUN/Creatinine Ratio 16.9 Random Glucose 128 mg/dl Calcium Level 8.2 mg/dl Magnesium Level 1.7 mg/dl Total Bilirubin 0.5 mg/dl Aspartate Amino Transf (AST/SGOT) 15 U/L Alanine Aminotransferase (ALT/SGPT) 18 U/L Alkaline Phosphatase 40 U/L Total Protein 5.4 gm/dl Albumin 2.4 gm/dl Globulin 3.0 gm/dl Albumin/Globulin Ratio 0.8 Bedside Glucose 154 mg/dl Assessment and Plan Ms. Ritter is an acutely ill woman with large EBL of 1900 and chest pain here s/p decompression and fusion 01/08 Acute Blood Loss Anemia Post-Operatively S/P Decompression/Fusion on 01/08: IMPROVING/STABLE - EBL 1900 mL - Transfused 4 units PRBCs, 2 FFP, and TXA x 2 doses on 01/08 - no further indication for transfusion - Hemoglobin stable and asymptomatic from anemic standpoint - Will continue to monitor blood counts and transfuse when necessary -- No cardiac history and could defer transfusion until Hgb > 7 or symptomatic - Continue pain management regimen and encourage bowel regimen - Appreciate surgical intervention and input from Dr. Pantoja Hyponatremia: - Continue fluid restriction; may be related to losses with HCTZ; also on Wellbutrin/Cymbalta - Can be monitored as an outpatient with repeat labs in next 3-4 days T2DM: - Glycemic management following - appreciate assistance and adjustments -- Planning for home regimen to continue on D/C GERD: - Zantac 150 mg BID HTN: - HCTZ 25 mg daily and Lisinopril 20 mg daily Hypothyroidism: - Synthroid 100 mcg daily Depression: STABLE - Wellbutrin 100 mg BID and Cymbalta 60 mg AM and 30 mg HS Morbid Obesity - BMI 45.3: Noted Code Status: FULL RESUSCITATION Patient is optimal for D/C to [facility] per primary team Continued [facility] stay due to: ambulation difficulties Discharge planning: rehab hospital
[2018-01-13 10:07] VITALS: BP 136/76; PULSE 98; O2SAT 98
[2018-01-13 10:11] VITALS: BP 133/67; PULSE 80; TEMP 36.8; O2SAT 96
[2018-01-18] MEDS ORDERED: LEVO100T7 PO (11:38)
[2018-01-18] MEDS ORDERED: HYDR25TA4 PO (11:38)
[2018-01-18] MEDS ORDERED: CYM30 PO (16:19)
[2018-01-18] MEDS ORDERED: SNG10 PO (16:19)
[2018-01-18] MEDS ORDERED: VITA400C3 PO (16:19)
[2018-01-18] MEDS ORDERED: CHOL100027 PO (16:19)
[2018-01-18] MEDS ORDERED: CYM60 PO (16:19)
[2018-01-18] MEDS ORDERED: METF-384 PO (16:19)
[2018-01-18] MEDS ORDERED: WLL100 PO (16:19)
[2018-01-18] MEDS ORDERED: ASPI81TA28 PO (16:19)
[2018-01-18] MEDS ORDERED: MULT-513 PO (16:19)
[2018-01-18] MEDS ORDERED: LSN20 PO (16:19)
[2018-01-18] MEDS ORDERED: LAMO150T PO (16:19)
[2018-01-18] MEDS ORDERED: CALCCHW PO (16:19)
[2018-01-18] MEDS ORDERED: MEMA1CAP3 PO (16:19)
== END 2018-01-13 10:50 | DRG 453 ==
LOC: C.ACU 05:57 → EDBEDREQ 12:18 → EDBEDREQSVC 12:18 → ENRESERV 12:19 → CANRESERV 12:19 → ENRESERV 12:40 → C.2T 14:15 → ENRESERV 15:59 → C.MSICU 16:29 → ENRESERV 01-09 16:44 → C.2T 01-09 17:37 → ENRESERV 01-10 13:38 → C.MSN 01-10 14:46
PROVIDERS: ADMIT Orthopaedic Surgery Orthopaedic Surgery of the Spine; ATTEND Orthopaedic Surgery Orthopaedic Surgery of the Spine
PROC: 0ST20ZZ Resection of Lumbar Vertebral Disc, Open Approach (ICD-10-PCS; principal; 2018-01-08 07:45)
PROC: 0RG6071 Fusion of Thoracic Vertebral Joint with Autologous Tissue Substitute, Posterior Approach, Posterior Column, Open Approach (ICD-10-PCS; principal; 2018-01-08 07:45)
PROC: 0SG704Z Fusion of Right Sacroiliac Joint with Internal Fixation Device, Open Approach (ICD-10-PCS; principal; 2018-01-08 07:45)
PROC: 0RGA071 Fusion of Thoracolumbar Vertebral Joint with Autologous Tissue Substitute, Posterior Approach, Posterior Column, Open Approach (ICD-10-PCS; principal; 2018-01-08 07:45)
PROC: 0SG804Z Fusion of Left Sacroiliac Joint with Internal Fixation Device, Open Approach (ICD-10-PCS; principal; 2018-01-08 07:45)
PROC: 0SG3071 Fusion of Lumbosacral Joint with Autologous Tissue Substitute, Posterior Approach, Posterior Column, Open Approach (ICD-10-PCS; principal; 2018-01-08 07:45)
PROC: 0SP004Z Removal of Internal Fixation Device from Lumbar Vertebral Joint, Open Approach (ICD-10-PCS; principal; 2018-01-08 07:45)
PROC: 0SG00AJ Fusion of Lumbar Vertebral Joint with Interbody Fusion Device, Posterior Approach, Anterior Column, Open Approach (ICD-10-PCS; principal; 2018-01-08 07:45)
PROC: 0SG1071 Fusion of 2 or more Lumbar Vertebral Joints with Autologous Tissue Substitute, Posterior Approach, Posterior Column, Open Approach (ICD-10-PCS; principal; 2018-01-08 07:45)
DX: M48.061 Spinal stenosis, lumbar region without neurogenic claudication (principal); T81.19XA Other postprocedural shock, initial encounter; D62 Acute posthemorrhagic anemia; Z68.42 Body mass index [BMI] 45.0-49.9, adult; Z79.82 Long term (current) use of aspirin; K21.9 Gastro-esophageal reflux disease without esophagitis; E11.9 Type 2 diabetes mellitus without complications; E03.9 Hypothyroidism, unspecified; F32.9 Major depressive disorder, single episode, unspecified; E66.01 Morbid (severe) obesity due to excess calories; Z88.1 Allergy status to other antibiotic agents; Z83.3 Family history of diabetes mellitus; Z88.5 Allergy status to narcotic agent; Y83.9 Surgical procedure, unspecified as the cause of abnormal reaction of the patient, or of later complication, without mention of misadventure at the time of the procedure

== ENCOUNTER 2018-01-18 17:32 | Emergency (ER) | payer OTHER ==
[~2018-01-18] VITALS: Ht 147.3 cm; Wt 93.0 kg
[~2018-01-18 17:32] MED LIST changes: -AMOX875T PO; +ASPI81TA28 PO; +CALCCHW PO; -CELE1CAP28 PO; +CHOL100027 PO; +CYM30 PO; +CYM60 PO; +HYDR25TA4 PO; +LAMO150T PO; +LEVO100T7 PO; +LSN20 PO; +MEMA1CAP3 PO; +METF-384 PO; +MULT-513 PO; +SNG10 PO; +VITA400C3 PO; +WLL100 PO
[2018-01-18 17:41] VITALS: TEMP 36.8; Ht 147.3 cm; Wt 93.0 kg
[2018-01-18] MEDS ORDERED: HYDROmorphone INJ 0.5 MG/0.5 ML SYR IV STA (18:13)
[2018-01-18] MEDS ORDERED: METOCLOPRAMIDE HCL INJ 5 MG/ML 2 ML VIAL IV. STA (18:13)
[2018-01-18] MEDS ORDERED: SODIUM CHLORIDE 0.9% 500ML 500 ML IV STA (18:13)
[2018-01-18] MEDS ORDERED: HYDROmorphone INJ 0.5 MG/0.5 ML SYR IV PRN (18:15)
[2018-01-18] MEDS ORDERED: OPTIRAY 320 IV PRN (18:30)
--- NOTE | 2018-01-18 18:41 | EMERGENCY ROOM VISIT NOTE ---
History Report prepared by Wendi: Haider Vernon Under the Supervision of: Dr. Juan Antonio Nelson M.D. First contact with patient: 17:56 Chief Complaint: BACK PAIN Stated Complaint: BACK PAIN History of Present Illness The patient is a 72 year old female who presents to the Emergency Room with complaints of worsening, sharp, abdominal pain beginning three days ago. The patient states she had back surgery and was discharged from the hospital five days ago. She reports she was admitted to [facility] three days ago. The patient notes she was discharged from the hospital with rib pain that worsened with movement. She states her pain is hurting more and more each day and spreading. The patient reports her entire abdomen and lower back are now sore. She notes her pain worsens with deep breathing and now hurts without movement. The patient states her pain has increased to the point where it is constant. She reports she is on Flexeril, oxycodone, and Narco. The patient notes she has not had relief with these medications. She states she typically has a BM once a day. Source of History: patient Onset: three days ago Position: abdomen Quality: sharp Timing: worsening Modifying Factors (Worsening): breathing (deep), movement Associated Symptoms: + back pain Review of Systems See HPI for pertinent positives & negatives. A total of 10 systems reviewed and were otherwise negative. Past Medical & Surgical Medical Problems: (1) Anxiety (2) Asthma (3) Depression (4) Diabetes mellitus, type II (5) DJD of shoulder (6) Dyslipidemia (7) Fibromyalgia (8) GERD (gastroesophageal reflux disease) (9) Hypertension (10) Hypothyroidism (11) Lumbar stenosis with neurogenic claudication (12) Rotator cuff arthropathy (13) Sleep apnea (14) Vascular dementia Surgical Problems: (1) H/O section (2) H/O colonoscopy (3) H/O esophagogastroduodenoscopy (4) History of rectal surgery (5) Sp lumbar spinal decompression (6) Status post bilateral knee replacements (7) Status post cholecystectomy (8) Status post hysterectomy (9) Status post tonsillectomy Family History Diabetes mellitus FH: cancer Stroke Social History Smoking Status: Never Smoker Marital Status: Housing Status: lives with significant other Occupation Status: retired Current/Historical Medications Scheduled Aspirin (Aspirin Ec), 81 MG PO QAM Bupropion HCl (Bupropion HCl), 100 MG PO BID Calcium Carbonate-Vitamin D W/ (Caltrate 600+D Plus), 1 TAB PO BID Cholecalciferol (Vitamin D 1000 Unit), 1,000 INTER.UNIT PO QAM Donepezil HCl (Donepezil HCl), 10 MG PO HS Duloxetine HCl (Duloxetine HCl), 30 MG PO HS Duloxetine HCl (Duloxetine HCl), 60 MG PO QAM Esomeprazole Magnesium (Esomeprazole Magnesium), 40 MG PO QAM Ezetimibe (Zetia), 10 MG PO HS Famotidine (Pepcid), 20 MG PO BID Ferrous Sulfate (Ferrous Sulfate), 325 MG PO BID Fluticasone Furoate-Vilanterol (Breo Ellipta 200-25 Mcg/INH), 1 PUFF INH DAILY Fluticasone Propionate (Nasal) (Flonase Allergy Relief), 1 SPRAY YUDY DAILY Folic Acid (Folic Acid), 1 MG PO DAILY Hydrochlorothiazide (Hctz), 25 MG PO QAM Lamotrigine (Lamictal), 150 MG PO HS Levothyroxine Sodium (Levothyroxine Sodium), 100 MCG PO QAM Lidocaine (Lidocaine), 1 PATCH TOP QAM Lisinopril (Lisinopril), 20 MG PO QAM Memantine Hcl (Namenda Xr), 14 MG PO HS Metformin Hcl (Glucophage), 1,000 MG PO BID Montelukast Sod (Montelukast Sodium), 10 MG PO HS Multivitamins/Minerals (Mvi With Minerals), 1 TAB PO QAM Pantoprazole (Protonix), 40 MG PO QAM Polyethylene Glycol 3350 (Miralax), 17 GM PO DAILY Simvastatin (Zocor), 20 MG PO QPM Trazodone Hcl (Trazodone), 50 MG PO HS Vitamin E (Vitamin E 400 Iu), 400 INTER.UNIT PO HS Scheduled PRN Albuterol Hfa (Ventolin Hfa), 2 PUFFS INH Q4 PRN for SOB/Wheezing Cyclobenzaprine Hcl (Flexeril), 5 MG PO TID PRN for Muscle Spasms Hydrocodone/Acetaminophen 5MG/325MG ([place] 5MG/325MG), 1 TABLET PO Q4 PRN for Pain Lorazepam (Ativan), 0.5 MG PO TID PRN for Anxiety Menthol (Topical Analgesic) (Biofreeze), 1 APPLN TOP QID PRN for RIB SORENESS Oxycodone Ir (Roxicodone Ir), 5 MG PO Q4 PRN for Pain Allergies Coded Allergies: Doxycycline (Verified Allergy, Unknown, GASTRITIS, 12/19/17) Miconazole (Verified Allergy, Unknown, SEVERE BURNING ITCHING, 12/19/17) Codeine (Verified Adverse Reaction, Unknown, STOMACH UPSET, 01/08/18) Macrolides (Verified Adverse Reaction, Unknown, STOMach upset-CAN TAKE Z PACK PER PT, 01/07/18) Morphine (Verified Adverse Reaction, Unknown, ITCHING, 01/08/18) Physical Exam Vital Signs Date Time Temp Pulse Resp B/P (MAP) Pulse Ox O2 Delivery O2 Flow Rate FiO2 01/18/18 21:53 88 18 160/88 98 01/18/18 21:03 97 20 167/84 98 Room Air 01/18/18 20:02 90 18 170/77 91 Room Air 01/18/18 19:04 91 18 166/66 97 Room Air 01/18/18 18:55 98 Room Air 01/18/18 18:43 89 01/18/18 17:41 36.8 87 20 130/84 98 Physical Exam GENERAL: Awake, alert, well-appearing, in no acute distress HENT: Normocephalic, atraumatic. Oropharynx unremarkable. EYES: Normal conjunctiva. Sclera non-icteric. NECK: Supple. No nuchal rigidity. FROM. No JVD. RESPIRATORY: Clear to auscultation. CARDIAC: Regular rate, normal rhythm. Extremities warm and well perfused. Pulses equal. ABDOMEN: Soft, non-distended. Exquisite tenderness to palpation to the LLQ. No rebound or guarding. No masses. Well healed surgical sight. Bilateral tenderness upon palpation to the ribs. RECTAL: Deferred. MUSCULOSKELETAL: Chest examination reveals no tenderness. The back is symmetrical on inspection without obvious abnormality. There is no CVA tenderness to palpation. No joint edema. LOWER EXTREMITIES: Calves are equal size bilaterally and non-tender. No edema. No discoloration. NEURO: Normal sensorium. No sensory or motor deficits noted. SKIN: No rash or jaundice noted. Medical Decision & Procedures ER Provider Diagnostic Interpretation: Radiology results as stated below per my review and radiologist interpretation: CT LUMBAR SPINE WITHOUT CT DOSE: 2143.22 mGy.cm CLINICAL HISTORY: Back pain status post trauma TECHNIQUE: Helical images were acquired in transverse plane. Reformatted sagittal and coronal images were reviewed. A dose lowering technique was utilized adhering to the principles of ALARA. CONTRAST: No contrast was administered COMPARISON STUDY: None. FINDINGS: There are extensive postsurgical changes present. There is evidence of discectomy and interbody fusions at the L4-5 and L1-2 levels. There is a posterior spinal fusion with pedicle screws at the T11-S1 levels. There is a large extradural posterior fluid collection with scattered air bubbles. This is likely postsurgical. It is not possible to exclude infection. L1-2 level: There are postsurgical changes of discectomy and interbody fusion. There is a posterior laminectomy. There is a posterior fluid collection containing air bubbles, likely postsurgical. This measures 4 mm transversely. L2-3 level: There are postlaminectomy changes. There are moderate degenerative changes with disc space narrowing and small posterior osteophytes. There is a posterior fluid collection, likely postsurgical L3-4 level: There are posterior laminectomy changes. There are degenerative changes with disc space narrowing. There is a posterior fluid collection, likely postsurgical L4-5 level: There are postsurgical changes of discectomy and interbody fusion. There are posterior laminectomy changes. There is 6 mm anterior subluxation of L4 and L5. There is a posterior fluid collection, likely postsurgical L5-S1 level: There is no evidence of significant disc bulge or focal herniation. There is no evidence of spinal or foraminal stenosis. Bilateral sacroiliac bolts are visualized. IMPRESSION: Extensive postsurgical changes as described above. Large posterior fluid collections with scattered air bubbles, likely postsurgical. Is not possible to exclude infection on the basis of this study. Electronically signed by: Micheal Dinh M.D. 01/18/2018 8:16 PM Dictated Date/Time: 01/18/2018 8:[address] ANGIOGRAM OF THE CHEST CLINICAL HISTORY: Atypical chest pain COMPARISON STUDY: Chest x-ray dated 11/09/2017 TECHNIQUE: Following the IV administration of 92 mL of Optiray-320, CT angiogram of the thorax was performed from the thoracic inlet to the lung bases utilizing the pulmonary embolus protocol. Images are reviewed in the axial, sagittal, and coronal planes. IV contrast was administered without complication. MIP imaging was performed. A dose lowering technique was utilized adhering to the principles of ALARA. CT DOSE: FINDINGS: Within the upper abdomen, there is a 22 mm left renal cyst. No pathologically enlarged axillary mediastinal or hilar lymph nodes were visualized. There was no evidence of thoracic aortic dilatation. There were no pulmonary artery filling defects to indicate acute pulmonary embolism. No pleural effusions are visualized. There is respiratory motion artifact. Dependent lower lobe airspace opacities are felt to be atelectatic. Scattered additional areas of atelectasis are suspected. There is no lobar consolidation IMPRESSION: 1. No evidence of acute pulmonary embolism 2. Bilateral atelectatic changes Electronically signed by: Michael Dinh M.D. 01/18/2018 8:05 PM Dictated Date/Time: 01/18/2018 8:[address] ABD/PELVIS IV CONTRAST ONLY CLINICAL HISTORY: Diffuse abdominal pain status post surgery COMPARISON STUDY: None. TECHNIQUE: Following the IV administration of 92 mL of Optiray-320, CT scan of the abdomen and pelvis was performed from the lung bases to the proximal femurs. Images are reviewed in the axial, sagittal, and coronal planes. IV contrast was administered without complication. A dose lowering technique was utilized adhering to the principles of ALARA. CT DOSE: FINDINGS: Lower chest: There are bibasal atelectatic changes. Liver: There is minimal central biliary ductal prominence. No focal masses are visualized. Gallbladder: Not visualized and presumed surgically absent. Spleen: Normal in size and attenuation. Pancreas: There is an equivocal 4 mm cyst within the pancreatic body. Adrenal glands: Unremarkable. Kidneys: There is a 24 mm left renal cyst. There is mild prominence of each renal pelvis. There is no significant ureteral dilatation. Bowel: There are no transition zones indicate bowel obstruction. There is no acute diverticulitis. There are scattered colonic diverticula present. The appendix is felt to be normal. There is mild fecal retention. There is a small hiatal hernia. Peritoneum: There is no intraperitoneal free air or abdominal ascites. Vasculature: The abdominal aorta is normal in course and caliber. Adenopathy: None. Pelvic viscera: The uterus is surgically absent. There is mild bladder distention Skeletal structures: There are extensive postsurgical changes within the lower thoracic and lumbar spines. IMPRESSION: 1. No evidence of bowel obstruction. No evidence of free air 2. Diverticulosis. No evidence of acute diverticulitis 3. Normal appendix 4. Mild bladder distention 5. Postsurgical changes within the thoracic and lumbar spines Electronically signed by: Michael Dinh M.D. 01/18/2018 8:10 PM Dictated Date/Time: 01/18/2018 8:06 PM Laboratory Results 01/18/18 18:53 Red Blood Count 3.39, Mean Corpuscular Volume 83.5, Mean Corpuscular Hemoglobin 27.4, Mean Corpuscular Hemoglobin Concent 32.9, Mean Platelet Volume 8.3, Neutrophils (%) (Auto) 69.2, Lymphocytes (%) (Auto) 13.9, Monocytes (%) (Auto) 11.1, Eosinophils (%) (Auto) 1.1, Basophils (%) (Auto) 0.6, Neutrophils # (Auto ) 5.70, Lymphocytes # (Auto) 1.14, Monocytes # (Auto) 0.91, Eosinophils # (Auto ) 0.09, Basophils # (Auto) 0.05 01/18/18 18:53 Test 01/18/18 18:53 01/18/18 19:07 01/18/18 21:00 White Blood Count 8.23 K/uL (4.8-10.8) Red Blood Count 3.39 M/uL (4.2-5.4) Hemoglobin 9.3 g/dL (12.0-16.0) Hematocrit 28.3 % (37-47) Mean Corpuscular Volume 83.5 fL (80-100) Mean Corpuscular Hemoglobin 27.4 pg (25-34) Mean Corpuscular Hemoglobin Concent 32.9 g/dl (32-36) Platelet Count 308 K/uL (130-400) Mean Platelet Volume 8.3 fL (7.4-10.4) Neutrophils (%) (Auto) 69.2 % Lymphocytes (%) (Auto) 13.9 % Monocytes (%) (Auto) 11.1 % Eosinophils (%) (Auto) 1.1 % Basophils (%) (Auto) 0.6 % Neutrophils # (Auto) 5.70 K/uL (1.4-6.5) Lymphocytes # (Auto) 1.14 K/uL (1.2-3.4) Monocytes # (Auto) 0.91 K/uL (0.11-0.59) Eosinophils # (Auto) 0.09 K/uL (0-0.5) Basophils # (Auto) 0.05 K/uL (0-0.2) RDW Standard Deviation 57.9 fL (36.4-46.3) RDW Coefficient of Variation 19.2 % (11.5-14.5) Immature Granulocyte % (Auto) 4.1 % Immature Granulocyte # (Auto) 0.34 K/uL (0.00-0.02) Erythrocyte Sedimentation Rate 23 mm/hr (0-21) Anion Gap 4.0 mmol/L (3-11) Est Creatinine Clear Calc Drug Dose 68.0 ml/min Estimated GFR () 93.6 Estimated GFR (Non- 80.8 BUN/Creatinine Ratio 17.7 (10-20) Calcium Level 9.1 mg/dl (8.5-10.1) Total Bilirubin 0.5 mg/dl (0.2-1) Direct Bilirubin 0.2 mg/dl (0-0.2) Aspartate Amino Transf (AST/SGOT) 15 U/L (15-37) Alanine Aminotransferase (ALT/SGPT) 17 U/L (12-78) Alkaline Phosphatase 88 U/L (45-117) Total Creatine Kinase 42 U/L (26-192) Creatine Kinase MB 0.7 ng/ml (0.5-3.6) Creatine Kinase MB Ratio 1.7 (0-3.0) Troponin I < 0.015 ng/ml (0-0.045) C-Reactive Protein 1.62 mg/dl (0-0.29) Total Protein 6.5 gm/dl (6.4-8.2) Albumin 3.2 gm/dl (3.4-5.0) Thyroid Stimulating Hormone (TSH) 3.920 uIu/ml (0.300-4.500) Bedside Glucose 114 mg/dl (70-90) Urine Color YELLOW Urine Appearance CLEAR (CLEAR) Urine pH 7.5 (4.5-7.5) Urine Specific [place] 1.017 (1.000-1.030) Urine Protein NEG (NEG) Urine Glucose (UA) NEG (NEG) Urine Ketones NEG (NEG) Urine Occult Blood NEG (NEG) Urine Nitrite NEG (NEG) Urine Bilirubin NEG (NEG) Urine Urobilinogen NEG (NEG) Urine Leukocyte Esterase TRACE (NEG) Urine WBC (Auto) 1-5 /hpf (0-5) Urine RBC (Auto) 0-4 /hpf (0-4) Urine Hyaline Casts (Auto) 0 /lpf (0-5) Urine Epithelial Cells (Auto) 5-10 /lpf (0-5) Urine Bacteria (Auto) 2+ (NEG) Labs reviewed by ED physician. Medications Administered Medications (Trade) Dose Ordered Sig/Tung Route Start Time Stop Time Status Last Admin Dose Admin Sodium Chloride 500 ml @ 999 mls/hr Q31M STAT IV 01/18/18 18:13 01/18/18 18:43 DC 01/18/18 19:01 999 MLS/HR Hydromorphone HCl (Dilaudid Inj) 0.5 mg NOW STAT IV 01/18/18 18:13 01/18/18 18:16 DC 01/18/18 19:02 0.5 MG Hydromorphone HCl (Dilaudid Inj) 0.5 mg Q1H PRN IV 01/18/18 18:15 01/18/18 22:31 DC 01/18/18 20:58 0.5 MG Metoclopramide HCl (Reglan Inj) 10 mg NOW STAT IV. 01/18/18 18:13 01/18/18 18:16 DC 01/18/18 19:01 10 MG Fentanyl (Duragesic Patch) 25 mcg Q72H STAT TD 01/18/18 20:34 01/18/18 20:36 DC 01/18/18 21:05 25 MCG ECG Per My Interpretation Indication: abdominal pain Rate (beats per minute): 90 Rhythm: normal sinus Findings: prolonged QT, other (No ST elevation or depression) ED Course 1803: Past medical records reviewed. The patient was evaluated in room A04A. A complete history and physical examination was performed. 1812: Ordered Reglan Inj 10mg IV, Dilaudid Inj 0.5 mg IV, Sodium Chloride 500 ml @ 999 mls/hr 1814: Ordered Dilaudid Inj 0.5mg IV 2031: Upon reexamination the patient is resting and feeling better. I discussed results and treatment plan with the patient. She verbalizes agreement and understanding. The patient is ready for discharge to [facility] after receiving her medication. 2033: Ordered Fentanyl 25 mcg TD Medical Decision Differential diagnosis: Etiologies such as appendicitis, diverticulitis, PUD, biliary pathology, UTI, pancreatitis, obstruction, mesenteric ischemia, aortic pathology, infections, inflammatory bowel disease, renal colic, as well as others were entertained. This is a 72-year-old female who presents emergency department complaining of chest pain abdominal pain as well as back pain. Patient recently had surgery done. Due to the multiple complaints the patient was sent for CAT scan chest abdomen pelvis as well as the surgical area. I will note that the patient does not have an elevation in her white blood cell count. Her pain was easily controlled here in the emergency department with Dilaudid. The patient does have slight dementia and I discussed this with her as well as the patient and I suspect she has not quite been getting her pain medication. For this we suggested taking a fentanyl patch at the group home. Patient is going to follow-up with her primary care physician. At this point I feel she can be safely discharged back. Patient was in agreement with the treatment plan. Medication Reconcilliation Current Medication List: was personally reviewed by me Blood Pressure Screening Patient's blood pressure: Elevated blood pressure Blood pressure disposition: Elevated BP felt to be situational Impression Primary Impression: Back pain Scribe Attestation The scribe's documentation has been prepared under my direction and personally reviewed by me in its entirety. I confirm that the note above accurately reflects all work, treatment, procedures, and medical decision making performed by me. Departure Information Dispostion Other ([facility]) Referrals Papo Keyes M.D. (PCP) [facility] HOME CARE DOCUMENTATION FORM, IMPORTANT VISIT INFORMATION Patient Instructions My [facility] Additional Instructions Adding Fentanyl patch for pain control You have been examined and treated today on an emergency basis only. This is not a substitute for, or an effort to provide, complete comprehensive medical care. It is impossible to recognize and treat all injuries or illnesses in a single emergency department visit. It is therefore important that you follow up closely with Dr Keyes. Call as soon as possible for an appointment. Thank you for your time and consideration. I look forward to speaking with you again soon. Please don't hesitate to call us if you have any questions. Problem Qualifiers Primary Impression: Back pain Back pain location: low back pain Chronicity: unspecified Back pain laterality: unspecified Sciatica presence: unspecified whether sciatica present Qualified Codes: M54.5 - Low back pain
[2018-01-18 18:55] VITALS: O2SAT 98
[2018-01-18 19:13] LABS: BASO % 0.6 %; BASO ABS # 0.05 K/uL (0-0.2); EOS % 1.1 %; EOS ABS # 0.09 K/uL (0-0.5); HEMATOCRIT 28.3 % (37-47); HEMOGLOBIN 9.3 g/dL (12.0-16.0); IG# 0.34 K/uL (0.00-0.02); LYMPH % 13.9 %; LYMPH ABS # 1.14 K/uL (1.2-3.4); MEAN CELL VOLUME 83.5 fL (80-100); MEAN CORPUSCULAR HEMOGLOBIN 27.4 pg (25-34); MEAN CORPUSCULAR HGB CONC 32.9 g/dl (32-36); MEAN PLATELET VOLUME 8.3 fL (7.4-10.4); MONO % 11.1 %; MONO ABS # 0.91 K/uL (0.11-0.59); NEUT % 69.2 %; PLATELET COUNT 308 K/uL (130-400); RED CELL DISTRIBUTION WIDTH CV 19.2 % (11.5-14.5); RED CELL DISTRIBUTION WIDTH SD 57.9 fL (36.4-46.3); WHITE BLOOD COUNT 8.23 K/uL (4.8-10.8)
[2018-01-18 19:26] LABS: ALBUMIN 3.2 gm/dl (3.4-5.0); ALT/SGPT 17 U/L (12-78); AST/SGOT 15 U/L (15-37); BLOOD UREA NITROGEN 13 mg/dl (7-18); CALCIUM 9.1 mg/dl (8.5-10.1); CARBON DIOXIDE 32 mmol/L (21-32); CREATININE 0.75 mg/dl (0.60-1.20); GLUCOSE 109 mg/dl (70-99); POTASSIUM 3.7 mmol/L (3.5-5.1); SODIUM 129 mmol/L (136-145)
[2018-01-18 19:36] LABS: ALKALINE PHOSPHATASE 88 U/L (45-117); CKMB 0.7 ng/ml (0.5-3.6); TOTAL PROTEIN 6.5 gm/dl (6.4-8.2)
[2018-01-18] MEDS ORDERED: VNTHFA/IN INH (19:46)
[2018-01-18] MEDS ORDERED: SIMV20TA2 PO (19:46)
[2018-01-18] MEDS ORDERED: POLY335019 PO (19:46)
[2018-01-18] MEDS ORDERED: FLUT0.15 NAE (19:46)
[2018-01-18] MEDS ORDERED: FERR1TAB62 PO (19:46)
[2018-01-18] MEDS ORDERED: CYCL5TAB PO (19:46)
[2018-01-18] MEDS ORDERED: ARC10 PO (19:46)
[2018-01-18] MEDS ORDERED: PANT40TA PO (19:46)
[2018-01-18] MEDS ORDERED: EZET10TA63 PO (19:46)
[2018-01-18] MEDS ORDERED: LIDO1PAD2 TOP (19:46)
[2018-01-18] MEDS ORDERED: FAMO20TA11 PO (19:46)
[2018-01-18] MEDS ORDERED: FLV1 PO (19:46)
[2018-01-18] MEDS ORDERED: FLUT1INH7 INH (19:46)
[2018-01-18] MEDS ORDERED: HYDR-5688 PO (19:46)
[2018-01-18] MEDS ORDERED: OXYC1TAB3 PO (19:56)
[2018-01-18] MEDS ORDERED: LORA-741 PO (19:56)
[2018-01-18] MEDS ORDERED: MENT4GEL TOP (19:56)
--- NOTE | 2018-01-18 20:06 | DIAGNOSTIC IMAGING REPORT ---
CT ANGIOGRAM OF THE CHEST CLINICAL HISTORY: Atypical chest pain COMPARISON STUDY: Chest x-ray dated 11/09/2017 TECHNIQUE: Following the IV administration of 92 mL of Optiray-320, CT angiogram of the thorax was performed from the thoracic inlet to the lung bases utilizing the pulmonary embolus protocol. Images are reviewed in the axial, sagittal, and coronal planes. IV contrast was administered without complication. MIP imaging was performed. A dose lowering technique was utilized adhering to the principles of ALARA. CT DOSE: FINDINGS: Within the upper abdomen, there is a 22 mm left renal cyst. No pathologically enlarged axillary mediastinal or hilar lymph nodes were visualized. There was no evidence of thoracic aortic dilatation. There were no pulmonary artery filling defects to indicate acute pulmonary embolism. No pleural effusions are visualized. There is respiratory motion artifact. Dependent lower lobe airspace opacities are felt to be atelectatic. Scattered additional areas of atelectasis are suspected. There is no lobar consolidation IMPRESSION: 1. No evidence of acute pulmonary embolism 2. Bilateral atelectatic changes Electronically signed by: Michael Dinh M.D. 01/18/2018 8:05 PM Dictated Date/Time: 01/18/2018 8:02 PM
--- NOTE | 2018-01-18 20:11 | DIAGNOSTIC IMAGING REPORT ---
CT ABD/PELVIS IV CONTRAST ONLY CLINICAL HISTORY: Diffuse abdominal pain status post surgery COMPARISON STUDY: None. TECHNIQUE: Following the IV administration of 92 mL of Optiray-320, CT scan of the abdomen and pelvis was performed from the lung bases to the proximal femurs. Images are reviewed in the axial, sagittal, and coronal planes. IV contrast was administered without complication. A dose lowering technique was utilized adhering to the principles of ALARA. CT DOSE: FINDINGS: Lower chest: There are bibasal atelectatic changes. Liver: There is minimal central biliary ductal prominence. No focal masses are visualized. Gallbladder: Not visualized and presumed surgically absent. Spleen: Normal in size and attenuation. Pancreas: There is an equivocal 4 mm cyst within the pancreatic body. Adrenal glands: Unremarkable. Kidneys: There is a 24 mm left renal cyst. There is mild prominence of each renal pelvis. There is no significant ureteral dilatation. Bowel: There are no transition zones indicate bowel obstruction. There is no acute diverticulitis. There are scattered colonic diverticula present. The appendix is felt to be normal. There is mild fecal retention. There is a small hiatal hernia. Peritoneum: There is no intraperitoneal free air or abdominal ascites. Vasculature: The abdominal aorta is normal in course and caliber. Adenopathy: None. Pelvic viscera: The uterus is surgically absent. There is mild bladder distention Skeletal structures: There are extensive postsurgical changes within the lower thoracic and lumbar spines. IMPRESSION: 1. No evidence of bowel obstruction. No evidence of free air 2. Diverticulosis. No evidence of acute diverticulitis 3. Normal appendix 4. Mild bladder distention 5. Postsurgical changes within the thoracic and lumbar spines Electronically signed by: Michael Dinh M.D. 01/18/2018 8:10 PM Dictated Date/Time: 01/18/2018 8:06 PM
--- NOTE | 2018-01-18 20:18 | DIAGNOSTIC IMAGING REPORT ---
CT LUMBAR SPINE WITHOUT CT DOSE: 2143.22 mGy.cm CLINICAL HISTORY: Back pain status post trauma TECHNIQUE: Helical images were acquired in transverse plane. Reformatted sagittal and coronal images were reviewed. A dose lowering technique was utilized adhering to the principles of ALARA. CONTRAST: No contrast was administered COMPARISON STUDY: None. FINDINGS: There are extensive postsurgical changes present. There is evidence of discectomy and interbody fusions at the L4-5 and L1-2 levels. There is a posterior spinal fusion with pedicle screws at the T11-S1 levels. There is a large extradural posterior fluid collection with scattered air bubbles. This is likely postsurgical. It is not possible to exclude infection. L1-2 level: There are postsurgical changes of discectomy and interbody fusion. There is a posterior laminectomy. There is a posterior fluid collection containing air bubbles, likely postsurgical. This measures 4 mm transversely. L2-3 level: There are postlaminectomy changes. There are moderate degenerative changes with disc space narrowing and small posterior osteophytes. There is a posterior fluid collection, likely postsurgical L3-4 level: There are posterior laminectomy changes. There are degenerative changes with disc space narrowing. There is a posterior fluid collection, likely postsurgical L4-5 level: There are postsurgical changes of discectomy and interbody fusion. There are posterior laminectomy changes. There is 6 mm anterior subluxation of L4 and L5. There is a posterior fluid collection, likely postsurgical L5-S1 level: There is no evidence of significant disc bulge or focal herniation. There is no evidence of spinal or foraminal stenosis. Bilateral sacroiliac bolts are visualized. IMPRESSION: Extensive postsurgical changes as described above. Large posterior fluid collections with scattered air bubbles, likely postsurgical. Is not possible to exclude infection on the basis of this study. Electronically signed by: Michael Dinh M.D. 01/18/2018 8:16 PM Dictated Date/Time: 01/18/2018 8:11 PM
[2018-01-18] MEDS ORDERED: FENTANYL 25 MCG/HR TDSY TD STA (20:34)
[2018-01-18 21:53] VITALS: BP 160/88; PULSE 88; O2SAT 98
== END 2018-01-18 21:54 | disposition home or self-care (01) ==
LOC: EDBD 17:32 → C.EDA 17:34
DX: M54.5 Low back pain (principal); F41.9 Anxiety disorder, unspecified; J45.909 Unspecified asthma, uncomplicated; F32.9 Major depressive disorder, single episode, unspecified; E11.9 Type 2 diabetes mellitus without complications; E78.5 Hyperlipidemia, unspecified; K21.9 Gastro-esophageal reflux disease without esophagitis; I10 Essential (primary) hypertension; E03.9 Hypothyroidism, unspecified; G47.30 Sleep apnea, unspecified; F01.50 Vascular dementia, unspecified severity, without behavioral disturbance, psychotic disturbance, mood disturbance, and anxiety; Z83.3 Family history of diabetes mellitus; Z82.3 Family history of stroke; Z82.49 Family history of ischemic heart disease and other diseases of the circulatory system; Z88.5 Allergy status to narcotic agent; Z88.8 Allergy status to other drugs, medicaments and biological substances

== ENCOUNTER 2019-04-09 06:19 | Inpatient (IN) ==
--- NOTE | 2019-02-13 13:44 | PAT Medication Instructions ---
Medication Instructions Date of Service February 13, 2019 Home Medications Ca carb-D3-mag lp-nsw-bant-Zn 1 tab PO BID acetaminophen [Tylenol Arthritis 2 tab PO Q8H PRN albuterol sulfate 2 inh INHALATION Q4H PRN aspirin [Aspir-81] 81 mg PO QAM budesonide-formoterol [Symbicort] 2 puff INHALATION BID bupropion HCl [Wellbutrin SR] 100 mg PO BID carboxymethylcellulose sodium 2 drp OPHTHALMIC (EYE) BID PRN celecoxib [Celebrex] 200 mg PO QAM cholecalciferol (vitamin D3) 1,000 unit PO QAM coQ10 (ubiquinol) 100 mg PO BID cyclobenzaprine 5 mg PO Q6H PRN donepezil [Aricept] 10 mg PO HS duloxetine [Cymbalta] 30 mg PO QPM duloxetine [Cymbalta] 60 mg PO QAM esomeprazole magnesium [Nexium] 40 mg PO QAM ezetimibe-simvastatin [Vytorin 1 tab PO HS ferrous sulfate [Feosol] 325 mg PO BID fluticasone propionate [Flonase 2 spray INTRANASAL HS folic acid 0.8 mg PO QAM hydrochlorothiazide 25 mg PO QAM lamotrigine [Lamictal] 150 mg PO HS levothyroxine 100 mcg PO QAM lisinopril 20 mg PO QAM lorazepam [Ativan] 0.5 - 1 tab PO DAILY PRN memantine [Namenda XR] 14 mg PO HS metformin 1,000 mg PO BID montelukast [Singulair] 10 mg PO HS xbhqmbmxujzq-bldyaila-cabped 1 tab PO QAM omega 6-dvy-lrz-fish oil [Fish Oil] 1 cap PO BID oxycodone 5 mg PO Q6H PRN phenylephrine HCl [Sudafed PE] 10 mg PO Q4H PRN ranitidine HCl 300 mg PO BID trazodone 50 mg PO HS vitamin E 400 unit PO H ASK your surgeon for instructions celecoxib [Celebrex] 200 mg PO QAM ASK your prescriber and surgeon aspirin [Aspir-81] 81 mg PO QAM STOP taking 2 weeks before surgery (or as soon as possible if surgery is within 2 weeks) coQ10 (ubiquinol) 100 mg PO BID omega 9-oim-gjs-fish oil [Fish Oil] 1 cap PO BID vitamin E 400 unit PO HS DO NOT take the morning of surgery Ca carb-D3-mag rm-nif-undn-Zn 1 tab PO BID cholecalciferol (vitamin D3) 1,000 unit PO QAM cyclobenzaprine 5 mg PO Q6H PRN ferrous sulfate [Feosol] 325 mg PO BID folic acid 0.8 mg PO QAM hydrochlorothiazide 25 mg PO QAM lisinopril 20 mg PO QAM metformin 1,000 mg PO BID snisduncndln-lsjgtbyd-kbymxt 1 tab PO QAM ranitidine HCl 300 mg PO BID Take morning of surgery With a small sip of water, OTHERWISE NOTHING TO EAT OR DRINK AFTER MIDNIGHT: acetaminophen [Tylenol Arthritis 2 tab PO Q8H PRN (okay to take up to 4 hours prior to surgery if needed) albuterol sulfate 2 inh INHALATION Q4H PRN (use if needed; please bring with you to hospital day of surgery if possible) budesonide-formoterol [Symbicort] 2 puff INHALATION BID bupropion HCl [Wellbutrin SR] 100 mg PO BID carboxymethylcellulose sodium 2 drp OPHTHALMIC (EYE) BID PRN (if needed) duloxetine [Cymbalta] 60 mg PO QAM esomeprazole magnesium [Nexium] 40 mg PO QAM levothyroxine 100 mcg PO QAM lorazepam [Ativan] 0.5 - 1 tab PO DAILY PRN (if needed) oxycodone 5 mg PO Q6H PRN (okay to take up to 4 hours prior to surgery if needed) Take evening before surgery Ca carb-D3-mag yj-hib-nrys-Zn 1 tab PO BID acetaminophen [Tylenol Arthritis 2 tab PO Q8H PRN (if needed) albuterol sulfate 2 inh INHALATION Q4H PRN (if needed) budesonide-formoterol [Symbicort] 2 puff INHALATION BID bupropion HCl [Wellbutrin SR] 100 mg PO BID carboxymethylcellulose sodium 2 drp OPHTHALMIC (EYE) BID PRN (if needed) cyclobenzaprine 5 mg PO Q6H PRN (if needed) donepezil [Aricept] 10 mg PO HS duloxetine [Cymbalta] 30 mg PO QPM ezetimibe-simvastatin [Vytorin 1 tab PO HS ferrous sulfate [Feosol] 325 mg PO BID fluticasone propionate [Flonase 2 spray INTRANASAL HS lamotrigine [Lamictal] 150 mg PO HS lorazepam [Ativan] 0.5 - 1 tab PO DAILY PRN (if needed) memantine [Namenda XR] 14 mg PO HS metformin 1,000 mg PO BID montelukast [Singulair] 10 mg PO HS oxycodone 5 mg PO Q6H PRN (if needed) phenylephrine HCl [Sudafed PE] 10 mg PO Q4H PRN (if needed) ranitidine HCl 300 mg PO BID trazodone 50 mg PO HS Other Notes If you have any questions please call us at [phone] or [phone] or [phone] or [phone]
--- NOTE | 2019-02-14 11:43 | Anesthesiology Consultation ---
Date of Service February 14, 2019 Assessment & Plan (1) Encounter for pre-operative examination: - Patient seen by PCP 02/21; asthma exacerbation treated with prednisone/albuterol Q4h and zpak. Per PCP, patient is not optimized for surgery at this time. - Check [facility] AM DOS Chart Review Chart Review: Patient seen in Pre Admission Testing Teaching & Discussion Pre-Anesthesia Teaching/Discussion Notes: Instructed NPO after midnight before surgery,except medications with 15 cc of water. Medication instructions provided according to the PAT guidelines. History Surgery Operation Date: 03/05/19 07:45 Proposed Procedures p C5 Corpectomy, C6-C7 Anterior Cervical Discectomy and Fusion - Hu Pantoja DO Operation Date: 03/06/19 07:45 Proposed Procedures p C5 Corpectomy, C6-C7 Anterior Cervical Discectomy and Fusion with Spinal Cord Monitoring - Hu Pantoja DO Correct Operation Date: 03/06/19* Height/Weight Height: 4 ft 10 in Weight: 87.4 kg Allergies Allergy/AdvReac Type Severity Reaction Status Date / Time miconazole Allergy Intermediate SEVERE Verified 02/13/19 09:51 BURNING ITCHING morphine Allergy Mild ITCHING Verified 02/14/19 11:43 codeine AdvReac Mild DYSPEPSIA Verified 02/14/19 11:43 doxycycline AdvReac Mild GASTRITIS Verified 02/14/19 11:43 Macrolide Antibiotics AdvReac Mild DYSPEPSIA Verified 02/14/19 11:43 (TOLERATED Z-PACK) Medications Home Medications Medication Instructions Recorded Confirmed Last Taken Ca carb-D3-mag tw-wck-lsge-Zn 1 tab PO BID 02/13/19 02/13/19 Unknown [Caltrate + D3 Plus Minerals] acetaminophen [Tylenol Arthritis 2 tab PO Q8H PRN 02/13/19 02/13/19 Unknown Pain] albuterol sulfate 2 inh INHALATION Q4H PRN 02/13/19 02/13/19 Unknown aspirin [Aspir-81] 81 mg PO QAM 02/13/19 02/13/19 Unknown budesonide-formoterol [Symbicort] 2 puff INHALATION BID 02/13/19 02/13/19 Unknown bupropion HCl [Wellbutrin SR] 100 mg PO BID 02/13/19 02/13/19 Unknown carboxymethylcellulose sodium 2 drp OPHTHALMIC (EYE) BID PRN 02/13/19 02/13/19 Unknown [Refresh Liquigel] celecoxib [Celebrex] 200 mg PO QAM 02/13/19 02/13/19 Unknown cholecalciferol (vitamin D3) 1,000 unit PO QAM 02/13/19 02/13/19 Unknown [Vitamin D3] coQ10 (ubiquinol) 100 mg PO BID 02/13/19 02/13/19 Unknown cyclobenzaprine 5 mg PO Q6H PRN 02/13/19 02/13/19 Unknown donepezil [Aricept] 10 mg PO HS 02/13/19 02/13/19 Unknown duloxetine [Cymbalta] 30 mg PO QPM 02/13/19 02/13/19 Unknown duloxetine [Cymbalta] 60 mg PO QA 02/13/19 02/13/19 Unknown esomeprazole magnesium [Nexium] 40 mg PO QA 02/13/19 02/13/19 Unknown ezetimibe-simvastatin [Vytorin 1 tab PO 02/13/19 02/13/19 Unknown 10-20] ferrous sulfate [Feosol] 325 mg PO BID 02/13/19 02/13/19 Unknown fluticasone propionate [Flonase 2 spray INTRANASAL HS 02/13/19 02/13/19 Unknown Allergy Relief] folic acid 0.8 mg PO QA 02/13/19 02/13/19 Unknown hydrochlorothiazide 25 mg PO [facility] 02/13/19 02/13/19 Unknown lamotrigine [Lamictal] 150 mg PO 02/13/19 02/13/19 Unknown levothyroxine 100 mcg PO QA 02/13/19 02/13/19 Unknown lisinopril 20 mg PO [facility] 02/13/19 02/13/19 Unknown lorazepam [Ativan] 0.5 - 1 tab PO DAILY PRN 02/13/19 02/13/19 Unknown memantine [Namenda XR] 14 mg PO 02/13/19 02/13/19 Unknown metformin 1,000 mg PO BID 02/13/19 02/13/19 Unknown montelukast [Singulair] 10 mg PO HS 02/13/19 02/13/19 Unknown ejlntgunvinq-tevwpgln-toeopq 1 tab PO QA 02/13/19 02/13/19 Unknown [Multivitamin 50 Plus] omega 3-xdm-cdz-fish oil [Fish Oil] 1 cap PO BID 02/13/19 02/13/19 Unknown oxycodone 5 mg PO Q6H PRN 02/13/19 02/13/19 Unknown phenylephrine HCl [Sudafed PE] 10 mg PO Q4H PRN 02/13/19 02/13/19 Unknown ranitidine HCl 300 mg PO BID 02/13/19 02/13/19 Unknown trazodone 50 mg PO HS 02/13/19 02/13/19 Unknown vitamin E 400 unit PO HS 02/13/19 02/13/19 Unknown Past Medical History Medical History Anemia Anxiety Asthma STABLE Cyclothymic disorder MOOD DISORDER Depression Diabetes mellitus, type 2 NIDDM Dry eye syndrome Dyspepsia CHRONIC FELT D/T MEDICATION INTERACTIONS (POLYPHARMACY) Fibromyalgia GERD (gastroesophageal reflux disease) OCCASIONAL History of blood transfusion REMOTE POST-OP Hyperlipidemia Hypertension Hypothyroidism Kidney stones Migraine 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 Osteoarthritis Peripheral neuropathy B/L UE/LE Sleep apnea BIPAP Spinal stenosis Ventral hernia Exercise / Class Metabolic Activity III < 4 Walking/Shop/Light housework (USES CANE PRN) Past Family History Family History Mother Family history of diabetes mellitus Brother Family history of diabetes mellitus Sister Family history of diabetes mellitus Uncle Family hx of colon cancer Past Surgical History Surgical History Fusion of spine LUMBAR X2 H/O foot surgery RIGHT HAMMERTOE AND BUNION REPAIR H/O: hysterectomy + ANTERIOR/POSTERIOR REPAIR History of bladder surgery SUSPENSION History of cataract surgery RIGHT/LEFT History of section History of cholecystectomy History of colonoscopy History of esophagogastroduodenoscopy (EGD) History of shoulder surgery RIGHT SHOULDER History of tonsillectomy History of tooth extraction History of total knee replacement RIGHT/LEFT Past Anesthesia History No Hx of Anesthesia Complications History of PONV No Hx of PONV and No Hx of Motion Sickness STOP BANG Total 6 Social History Smoking Status: Never smoker Do You Dip or Chew Tobacco: No Hx Alcohol Use: No Hx Substance Use: No substance use type: does not use Review of Systems Patient denies chest pain, shortness of breath, cough, wheezing, palpitations. Physical Exam Vital Signs VITALS BP 110/63 P 80 TEMP 98.0 SP02 93%RA RESP 18 PHYSICAL Full neck and c-spine range of motion. Full TMJ range of motion. TMD 3 finger breaths Mallampati Score 1 Dentition: intact Lungs: clear throughout to auscultation Cardiac: regular rate and rhythm, no murmurs noted Spine: normal Carotid arteries: negative bruit Extremities: no edema Testing Electrocardiogram Date: 02/14/19 Findings: + NSR @ (79) Chest X-Ray Date: 08/09/18 Findings: + NAD Echocardiogram Date: 11/10/17 EF 60-65%. No RWMA. Technically limited study. No significant valvular disease. Laboratory Results 02/14/19 12:15 02/14/19 12:15 PT 10.7 Seconds (9.0-12.0) 02/14/19 12:15 INR 1.0 (0.9-1.1) 02/14/19 12:15 APTT 26.7 Seconds (21.0-31.0) 02/14/19 12:15 6.5 % (4.5-5.6) H 02/14/19 12:15 Yellow 02/20/19 14:05 Clear (Clear) 02/20/19 14:05 6.5 (4.5-7.5) 02/20/19 14:05 Ur Specific [place] 1.022 (1.000-1.030) 02/20/19 14:05 Negative (Negative) 02/20/19 14:05 Negative (Negative) 02/20/19 14:05 Negative (Negative) 02/20/19 14:05 Negative (Negative) 02/20/19 14:05 Ur Leukocyte Esterase Negative (Negative) 02/20/19 14:05 Blood Type A Positive 02/14/19 12:15 Antibody Screen NEGATIVE 02/14/19 12:15
--- OUTSIDE RECORDS SUMMARY | 2019-02-14 11:55 | External Medical Summary | Continuity of Care Document ---
:1945 Author Name Radha Nj, Provider Address Unavailable Unavailable , Care Team Providers Name Role Phone Unavailable Unavailable Unavailable Kerline Epps III, M.D. Unavailable [email or web address] Mehran REYNOLDS Unavailable Unavailable Unavailable Unavailable Unavailable Problems Diabetes mellitus (250.00) (E11.9) Leg pain, bilateral (729.5) (M79.604) Vascular dementia, uncomplicated (290.40) (F01.50) Encounter for routine gynecological examination (V72.31) (Z0 1.419) Hypertension (401.9) (I10) Hypothyroidism (244.9) (E03.9) Postmenopausal osteoporosis (733.01) (M81.0) Tremor (781.0) (R25.1) Lumbar canal stenosis (724.02) (M48.061) Asthma (493.90) (J45.909) Abnormality of gait (781.2) (R26.9) Major depression, recurrent (296.30) (F33.9) Allergies and Adverse Reactions Codeine Derivatives (Allergy) Doxycycline Hyclate CAPS (Allergy) Erythromycin Derivatives (Allergy) Monistat 3 SUPP (Allergy) Medications Folic Acid 800 MCG Oral Tablet; TAKE 1 TABLET DAILY JOE CARDENAS M.Ender. Refills: 0 Vitamin E 400 UNIT Oral Tablet; TAKE 1 TABLET DAILY. , M.D. Refills: 0 Amaryl 1 MG Oral Tablet; TAKE 0.5 TABLET Daily , M.D. Refills: 0 Budeprion XL 300 MG TB24; TAKE 1 TABLET DAILY. , M.D. Refills: 0 Levothyroxine Sodium 150 MCG Oral Tablet; TAKE 1 TABLET LOBO Manuel M.D. Refills: 0 Lisinopril 20 MG Oral Tablet; TAKE 1 TABLET DAILY. , M.D. Refills: 0 raNITIdine HCl - 300 MG Oral Tablet; TAKE 1 TABLET TWICE MANDA THAYER M.D. Refills: 0 Singulair 10 MG Oral Tablet; TAKE 1 TABLET DAILY. , M.D. Refills: 0 Vytorin 10-20 MG Oral Tablet; TAKE 1 TABLET DAILY DIRECTE D. , M.D. Refills: 0 Albuterol AERS; INHALE 2 PUFFS EVERY 4-6 HOURS NEEDED. , M.D. Refills: 0 Flonase SUSP , M.D. Refills: 0 Cymbalta 60 MG Oral Capsule Delayed Release Particles; TAKE 1 CAPSULE DAILY. , M.D. Refills: 0 NexIUM 40 MG Oral Capsule Delayed Release; TAKE 1 CAPSULE Da hernando , M.D. Refills: 0 Zyrtec 10 MG TABS; TAKE 1 TABLET DAILY. , M.D. Refills: 0 Ambien 5 MG Oral Tablet; TAKE 0.5 TABLET Bedtime , M.D. Refills: 0 Aspirin 81 MG TABS; TAKE 1 TABLET DAILY. , M.D. Refills: 0 CoQ-10 100 MG Oral Capsule; TAKE 1 CAPSULE TWICE DAILY. , M. D. Refills: 0 CeleBREX 200 MG Oral Capsule; TAKE 1 CAPSULE DAILY WITH A ME AL. , M.D. Refills: 0 metFORMIN HCl - 1000 MG Oral Tablet; TAKE 1 TABLET TWICE MANDA LY. , M.D. Refills: 0 Ativan 0.5 MG Oral Tablet; TAKE 1 TABLET DAILY NEEDED. , M.D. Refills: 0 LaMICtal 150 MG Oral Tablet; TAKE 1 TABLET DAILY. , M.D. Refills: 0 Donepezil HCl - 10 MG Oral Tablet; Take one tablet daily Mich ANDINO M.D. E. P. Start: 01-Jan-2012 Refills: 5 Vitamin D 1000 UNIT Oral Tablet; one tab daily , M.D. Refills: 0 Symbicort 160-4.5 MCG/ACT Inhalation Aer osol; INHALE 2 PUFFS TWICE DAILY. RINSE MOUTH AFTER USE. Mich ANDINO M.D. E. P. Start: 22-Aug-2010 Refills: 0 Tylenol TABS , M.D. Refills: 0 Multi-Day Vitamins TABS , M.D. Refills: 0 aMILoride-hydroCHLOROthiazide 5-50 MG Oral Tablet; DELGADO E 0.75 TABLET Daily , M.D. Refills: 0 Memantine HCl ER 14 MG Oral Capsule Exte nded Release 24 Hour; TAKE 1 CAPSULE Daily Clem Epps III Start: 08-Apr-2018 Quantity: 90 Refills: 3 Procedures History of Gallbladder Surgery Status: C ompleted History of Section Status: Comp leted History of Anal Surgery Status: Complete d History of Tonsillectomy With Adenoidectomy Status: Completed History of Knee Arthroscopy (Therapeutic) Status: Completed History of Vaginal Hysterectomy Status: Completed History of Back Surgery Status: Complete d History of Knee Replacement Status: Comp leted History of Foot Surgery Right Status: Co mpleted History of Lumbar Vertebral Fusion Statu s: Completed Immunizations Influenza On: 2010 Family History Unknown Family Member Family history of Breast Cancer (V16.3) Status: Active Comments: Family History Family history of Colon Cancer (V16.0) Status: Active C omments: Family History Family history of Ovarian Cancer (V16.41) Status: Active Comments: Family History Mother Family history of Status: Active Family history of chronic obstructive pulmonary disease (V17 .6) Status: Active (Z82.5) Family history of hypertension (V17.49) (Z82.49) Status: Act jacoby Family history of diabetes mellitus (V18.0) (Z83.3) Status: Active Father Family history of Status: Active Family history of MVA (motor vehicle accident) (E819.9 ) (V89.2XXA) Status: Active aunt Family history of breast cancer (V16.3) (Z80.3) Status: Acti ve aunt Family history of ovarian cancer (V16.41) (Z80.41) Status: A ctive Brother Family history of diabetes mellitus (V18.0) (Z83.3) Status: Active Family history of renal failure (V18.69) (Z84.1) Status: Act jacoby Sister Family history of malignant melanoma (V16.8) (Z80.8) Status: Active uncle Family history of colon cancer (V16.0) (Z80.0) Status: Activ e Social History - Smoking Status Unknown if ever smoked Never smoker Plan of Treatment Planned Observations Planned Goals not documented Results No Known Results Results not documented
[2019-02-14 14:10] LABS: Basophils # (auto) 0.03 K/uL (0-0.2); Basophils % (auto) 0.5 %; Eosinophils # (auto) 0.11 K/uL (0-0.5); Eosinophils % (auto) 1.8 %; Hematocrit (blood only) 37.2 % (37-47); Hemoglobin 12.8 g/dL (12.0-16.0); Immature Granulocytes # (auto) 0.07 K/uL (0.00-0.02); Immature Granulocytes % (auto) 1.2 %; Lymphocytes # (auto) 1.55 K/uL (1.2-3.4); Lymphocytes % (auto) 25.6 %; Mean Corpuscular Hgb Conc 34.4 g/dL (32-36); Mean Platelet Volume 9.6 fL (7.4-10.4); Monocytes # (auto) 0.71 K/uL (0.11-0.59); Monocytes % (auto) 11.7 %; Neutrophils # (auto) 3.59 K/uL (1.4-6.5); Neutrophils % (auto) 59.2 %; Platelet Count 234 K/uL (130-400); RDW Coefficient of Variation 16.7 % (11.5-14.5); RDW Standard Deviation 51.5 fL (36.4-46.3); Red Blood Count 4.43 M/uL (4.2-5.4); White Blood Count 6.06 K/uL (4.8-10.8)
[2019-02-14 14:26] LABS: Estimated Average Glucose 140 mg/dl; Hemoglobin A1C 6.5 % (4.5-5.6)
[2019-02-14 14:37] LABS: Partial Thromboplastin Time 26.7 Seconds (21.0-31.0); Prothrombin Time 10.7 Seconds (9.0-12.0)
[2019-02-14 14:38] LABS: BUN Creatinine Ratio 15.4 (10-20); Calcium 9.5 mg/dl (8.5-10.1); Creatinine Clr Calc Pharmacy 59.1 ml/min; Est GFR (African American) 83.4; Potassium 4.1 mmol/L (3.5-5.1)
[2019-02-20 17:51] LABS: Appearance Urine Clear (Clear); Bilirubin Urine Negative (Negative); Blood Urine Negative (Negative); Color Urine Yellow; Glucose Urine UA Negative (Negative); Ketones Urine Negative (Negative); Leukocyte Esterase Urine Negative (Negative); Nitrite Urine Negative (Negative); Protein Urine Negative (Negative); Specific Gravity Urine 1.022 (1.000-1.030); Urobilinogen Urine Negative (Negative); pH Urine 6.5 (4.5-7.5)
[~2019-04-09 06:19] MED LIST changes: +ACETAMINOPHEN 500 MG TAB PO SCH; -ASPI81TA28 PO; -CALCCHW PO; +CEFAZOLIN 2000MG 2,000 MG/15 ML SYR IV SCH; -CHOL100027 PO; -CYM30 PO; -CYM60 PO; +CeleBREX 200 MG CAP PO SCH; -DONE10TA12 PO; -ESOM1CAP34 PO; -EZET10TA38 PO; -FLUT0.15 NAE; -FOLI800T PO; +GABAPENTIN 300 MG PO SCH; -HYDR25TA4 PO; -LAMO150T PO; -LEVO100T7 PO; -LORA-741 PO; +LR 15ML/HR IV SCH; -LSN20 PO; -MEMA1CAP3 PO; -METF-384 PO; -MULT-513 PO; -OXYC-609 PO; -PROAIR INH; -RANI300T PO; -SNG10 PO; -SYMIN160 INH; -TRAZ50TA35 PO; -VITA400C3 PO; -WLL100 PO
[2019-04-09] MEDS ORDERED: PROPOFOL IV EMULSION 10 MG/ML 20 ML VIAL IV ONE (06:37)
[2019-04-09] MEDS ORDERED: LIDOCAINE HCL 2% 2 ML VIAL/AMP(20MG/ML) INFIL ONE (06:37)
[2019-04-09] MEDS ORDERED: ONDANSETRON INJ 2 MG/ML 2 ML VIAL ONE (06:37)
[2019-04-09] MEDS ORDERED: fentaNYL citrate 100 MCG/2 ML VIAL ONE (06:37)
[2019-04-09] MEDS ORDERED: MIDAZOLAM HCL 1 MG/ML 2ML VIAL ONE (06:37)
[2019-04-09] MEDS ORDERED: DEXAMETHASONE SOD INJ 4 MG/ML VIAL ONE (06:37)
[2019-04-09] MEDS ORDERED: GLYCOPYRROLATE 0.2 MG/ML VIAL ONE (06:37)
[2019-04-09] MEDS ORDERED: NEOSTIGMINE METHYLSULFATE 1 MG/ML 10ML VIAL ONE (06:37)
[2019-04-09] MEDS ORDERED: PROPOFOL IV EMULSION 10 MG/ML 100 ML VIAL IV ONE (06:53)
[2019-04-09] MEDS ORDERED: BACITRACIN INJ 50,000 UNIT VIAL ONE (07:02)
[2019-04-09] MEDS ORDERED: fentaNYL citrate 100 MCG/2 ML VIAL IV PRN (07:07)
[2019-04-09] MEDS ORDERED: ONDANSETRON INJ 2 MG/ML 2 ML VIAL IV PRN ×2 (07:07→11:15)
[2019-04-09] MEDS ORDERED: ATROPINE SULFATE 0.1 MG/ML 10ML SYR IV PRN (07:07)
[2019-04-09] MEDS ORDERED: ePHEDrine sulfate 50 MG/ML AMP IV PRN (07:07)
--- NOTE | 2019-04-09 07:36 | History & Physical Bridge Note ---
Date of Service April 09, 2019 History & Physical Bridge Note I have examined the patient, reviewed the History & Physical and in the interval since the performance of the History & Physical I have noted the following changes of clinical significance: no changes noted
--- NOTE | 2019-04-09 07:37 | History & Physical Report ---
Date of Service April 09, 2019 Assessment & Plan (1) Cervical stenosis of spinal canal: Corpectomy C5 anterior cervical discectomy and fusion C6-7 Present on Admission?: Yes History of Present Illness Chief Complaint: Neck and arm pain Primary Care Provider: Papo Keyes MD This is a 73-year-old female who presents with chronic persistent neck and arm symptoms and is here for surgical intervention. Allergies Allergy/AdvReac Type Severity Reaction Status Date / Time miconazole Allergy Intermediate SEVERE Verified 04/09/19 06:50 BURNING ITCHING morphine Allergy Mild ITCHING Verified 04/09/19 06:50 codeine AdvReac Mild DYSPEPSIA Verified 04/09/19 06:50 doxycycline AdvReac Mild GASTRITIS Verified 04/09/19 06:50 Macrolide Antibiotics AdvReac Mild DYSPEPSIA Verified 04/09/19 06:50 (TOLERATED Z-PACK) Home Medications Home Medications Medication Instructions Recorded Confirmed Type Ca carb-D3-mag mr-shx-xxpb-Zn 1 tab PO BID 02/13/19 04/09/19 History [Caltrate + D3 Plus Minerals] acetaminophen [Tylenol Arthritis 2 tab PO Q8H PRN 02/13/19 04/09/19 History Pain] albuterol sulfate 2 inh INHALATION Q4H PRN 02/13/19 04/09/19 History aspirin [Aspir-81] 81 mg PO QAM 02/13/19 04/09/19 History budesonide-formoterol [Symbicort] 2 puff INHALATION BID 02/13/19 04/09/19 History bupropion HCl [Wellbutrin SR] 100 mg PO BID 02/13/19 02/13/19 History carboxymethylcellulose sodium 2 drp OPHTHALMIC (EYE) BID PRN 02/13/19 04/09/19 History [Refresh Liquigel] celecoxib [Celebrex] 200 mg PO QAM 02/13/19 04/09/19 History cholecalciferol (vitamin D3) 1,000 unit PO QAM 02/13/19 04/09/19 History [Vitamin D3] coQ10 (ubiquinol) 100 mg PO BID 02/13/19 04/09/19 History cyclobenzaprine 5 mg PO Q6H PRN 02/13/19 04/09/19 History donepezil [Aricept] 10 mg PO HS 02/13/19 04/09/19 History duloxetine [Cymbalta] 30 mg PO QPM 02/13/19 04/09/19 History duloxetine [Cymbalta] 60 mg PO QAM 02/13/19 02/13/19 History esomeprazole magnesium [Nexium] 40 mg PO QAM 02/13/19 04/09/19 History ezetimibe-simvastatin [Vytorin 1 tab PO HS 02/13/19 04/09/19 History 10-20] ferrous sulfate [Feosol] 325 mg PO BID 02/13/19 04/09/19 History fluticasone propionate [Flonase 2 spray INTRANASAL HS 02/13/19 04/09/19 History Allergy Relief] folic acid 0.8 mg PO QAM 02/13/19 04/09/19 History hydrochlorothiazide 25 mg PO QAM 02/13/19 04/09/19 History lamotrigine [Lamictal] 150 mg PO HS 02/13/19 04/09/19 History levothyroxine 100 mcg PO QA 02/13/19 02/13/19 History lisinopril 20 mg PO QAM 02/13/19 04/09/19 History lorazepam [Ativan] 0.5 - 1 tab PO DAILY PRN 02/13/19 04/09/19 History memantine [Namenda XR] 14 mg PO HS 02/13/19 04/09/19 History metformin 1,000 mg PO BID 02/13/19 04/09/19 History montelukast [Singulair] 10 mg PO HS 02/13/19 04/09/19 History mwpdxzpvwakj-semtnftz-ztehvx 1 tab PO QAM 02/13/19 04/09/19 History [Multivitamin 50 Plus] omega 7-fwh-kcq-fish oil [Fish Oil] 1 cap PO BID 02/13/19 04/09/19 History oxycodone 5 mg PO Q6H PRN 02/13/19 04/09/19 History phenylephrine HCl [Sudafed PE] 10 mg PO Q4H PRN 02/13/19 04/09/19 History ranitidine HCl 300 mg PO BID 02/13/19 02/13/19 History trazodone 50 mg PO HS 02/13/19 04/09/19 History vitamin E 400 unit PO HS 02/13/19 04/09/19 History Past Med/Surg History Medical History Anemia Anxiety Asthma STABLE Cyclothymic disorder MOOD DISORDER Depression Diabetes mellitus, type 2 NIDDM Dry eye syndrome Dyspepsia CHRONIC FELT D/T MEDICATION INTERACTIONS (POLYPHARMACY) Fibromyalgia GERD (gastroesophageal reflux disease) OCCASIONAL History of blood transfusion REMOTE POST-OP Hyperlipidemia Hypertension Hypothyroidism Kidney stones Migraine 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 Osteoarthritis Peripheral neuropathy B/L UE/LE Sleep apnea BIPAP Spinal stenosis Ventral hernia Surgical History Fusion of spine LUMBAR X2 H/O foot surgery RIGHT HAMMERTOE AND BUNION REPAIR H/O: hysterectomy + ANTERIOR/POSTERIOR REPAIR History of bladder surgery SUSPENSION History of cataract surgery RIGHT/LEFT History of section History of cholecystectomy History of colonoscopy History of esophagogastroduodenoscopy (EGD) History of shoulder surgery RIGHT SHOULDER History of tonsillectomy History of tooth extraction History of total knee replacement RIGHT/LEFT Family History Mother Family history of diabetes mellitus Brother Family history of diabetes mellitus Sister Family history of diabetes mellitus Uncle Family hx of colon cancer Social History Preferred Language: Spanish Communication Ability: Effective Cdl Program Coordinator Required: No Beliefs That Will Affect Care: None Current Living Situation: Spouse Other Information That Helps Us Care for You: No Feels Safe at Home: Yes Safety Concerns: Feels Safe At This Time Smoking Status: Never smoker Do You Dip or Chew Tobacco: No Second Hand Exposure: No Tobacco Cessation Education Requested by Patient: No Hx Alcohol Use: No Hx Substance Use: No Physical Exam Physical Exam: Patient is alert and oriented neurologically intact. Results & Data Vital Signs (Past 12 Hours) Vital Signs Temp Pulse Resp BP Pulse Ox 04/09/19 06:37 36.8 C 94 H 20 170/77 H 97
[2019-04-09] MEDS ORDERED: SUCCINYLCHOLINE CHLORIDE 20 MG/ML 10 ML VIAL ONE (08:18)
[2019-04-09] MEDS ORDERED: DiphenhydrAMINE HCL 50 MG/ML VIAL ONE (08:18)
[2019-04-09] MEDS ORDERED: ROCURONIUM BROMIDE 10 MG/ML 5 ML VIAL ONE (08:18)
[2019-04-09] MEDS ORDERED: HYDROmorphone INJ 2 MG/ML SYR/VIAL ONE ×2 (08:22→09:40)
[2019-04-09] MEDS ORDERED: FLOSEAL HEMOSTATIC MATRIX 10ML TOP ONE (08:45)
[2019-04-09] MEDS ORDERED: LABETALOL HCL IV 5 MG/ML 20ML IV ONE (09:12)
--- NOTE | 2019-04-09 09:45 | Operative Report ---
Post Operative Report Pre & Post Diagnosis Operation Date: 03/05/19 07:45 <No data on this case meets the specified criteria> Operation Date: 04/09/19 07:45 Pre-Op Diagnosis: Cervical spinal stenosis with myeloradiculopathy. Obesity Post-Op Diagnosis: Same Procedure Operation Date: 03/05/19 07:45 <No data on this case meets the specified criteria> Operation Date: 04/09/19 07:45 Actual Procedures #1 anterior cervical corpectomy C5 with bilateral foraminotomies. #2 anterior cervical discectomy C6-7 with bilateral foraminotomies. #3 anterior cervical arthrodesis C4-C6 and C6-C7. #4 placement of peek cage 23 mm in height C4-C6 and 7 mm in height at C6-7. #5 application burch plate and screws from C4-C7. #6 placement of local autograft combined with DBM in the interbody cages. Surgeon Hu Pantoja, DO Research Professor Of Biostatistics Chelita Marie Estimated Blood Loss 30 Findings See Below The patient is forefoot 10 inches tall and 86 kg with a BMI of 39.6. The patient's body habitus created marked increased and technical difficulty adding at least 25% increase in surgical time. Specimens None Indications This is a 73-year-old female who presents with worsening bilateral radicular pain from severe cervical stenosis and elected to undergo the above-mentioned procedure. Description of Procedure Patient was met with identified and informed consent obtained. She was then taken to the operative suite underwent intubation placed in supine position on the Sylvain table the chest head in the Wilson nailhead puncher. All bony prominences well-padded eyes inspected to ensure no external pressure placed upon the peer at this point identified the C5-6 disc space and a transverse incision was placed along the right anterior aspect of the cervical spine overlying this region. Sharp dissection with the assistance of bipolar elect rocautery was performed down to and exposing the C4-C7 disc spaces. Self- retaining retractors placed. Then performed a complete discectomy of C4-5 out to the uncovertebral joints bilaterally followed by C5-6. [place] distracting pins were utilized to assist in visualization. I performed a complete corpectomy of C5 including removal of all posterior annular fibers longitudinal ligament and bilateral foraminotomies. Endplates were then burred to subcortical bleeding bone and a 23 mm peek cage filled with locally morselized autograft and DBM tapped in position. Then proceeded to C6-7 again complete discectomy performed out to the uncovertebral joints bilaterally. [place] distracting pins again utilized. Removed all posterior annular fibers longitudinal ligament bilateral foraminotomies performed. Endplates were then burred to subcortical being bone and a 7 mm peek cage filled with local autograft and DBM tapped in position. Distraction apparatus was removed and a burch plate and screws applied with the assistance of fluoroscopy. Incision was then copiously irrigated explored to ensure no damage to surrounding structures remaining bleeding. 15 round SHADIA drain inserted. The incision was then closed with 2 Vicryl in a fashion of 4 Monocryl for final closure. Steri- Strip sterile dressings placed. Patient will continue to PACU stable condition. Please note Chelita Marie present at the entire procedure involved the patient positioning complex portions of the surgery and final skin closure. Lastly spinal cord monitoring was utilized throughout the procedure no changes noted. I attest to the content of the Intraoperative Record and any orders documented therein. Any exceptions are noted below.
--- NOTE | 2019-04-09 09:58 | Fluoroscopy Report ---
INTRAOPERATIVE RADIOGRAPHS CLINICAL HISTORY: C4-C7 spinal fusion. Fluoroscopy time: 17 seconds. FINDINGS: 3 spot fluoroscopic views of the cervical spine are obtained. There has been corpectomy at C5 with anterior fusion from C4 -C7. Discectomy change is noted at C6-C7. The orthopedic hardware twin ears intact. An endotracheal tube is in place. IMPRESSION: Intraoperative images from C4 -C7 spinal fusion as above. Electronically signed by: James Staley M.D. 04/09/2019 9:57 AM
--- NOTE | 2019-04-09 10:53 | Anesthesiology Progress Note ---
Date of Service April 09, 2019 Anesthesia Post Procedure Vital Signs Vital Signs: Temp Pulse Pulse Resp BP Pulse Ox 04/09/19 10:50 97.9 F 80 18 132/73 97 04/09/19 10:40 79 15 133/60 97 04/09/19 10:30 80 14 123/60 99 04/09/19 10:20 79 18 142/66 H 99 04/09/19 10:10 82 18 163/99 H 100 04/09/19 10:00 78 18 143/79 H 100 04/09/19 09:52 96.8 F L 80 18 152/79 H 98 04/09/19 06:37 98.2 F 94 H 20 170/77 H 97 Transfer of Care Handoff Completed per policy Notes Mental Status: alert / awake / arousable and participated in evaluation Patient Amnestic to Procedure: Yes Nausea / Vomiting: adequately controlled Pain: adequately controlled Airway Patency, RR, SpO2: stable & adequate BP & HR: stable & adequate Hydration State: stable & adequate Anesthetic Complications: no major complications apparent and Pt Satisfied with anesthetic care
[2019-04-09] MEDS ORDERED: ACETAMINOPHEN 1,000 MG/100 ML VIAL IV PRN (11:15)
[2019-04-09] MEDS ORDERED: CYCLOBENZAPRINE HCL 5 MG TAB PO PRN (11:15)
[2019-04-09] MEDS ORDERED: DiphenhydrAMINE HCL 50 MG/ML VIAL IV PRN (11:15)
[2019-04-09] MEDS ORDERED: DO NOT ADMINISTER PNEUMOCOCCAL VACCINE PRN (11:15)
[2019-04-09] MEDS ORDERED: LORazepam 0.5 MG/1 ML VIAL IV PRN (11:15)
[2019-04-09] MEDS ORDERED: MAGNESIUM HYDROXIDE SUSP 30 ML UDC PO PRN (11:15)
[2019-04-09] MEDS ORDERED: NALOXONE HCL 0.4 MG/1 ML VIAL/CARP IV PRN (11:15)
[2019-04-09] MEDS ORDERED: LORazepam 0.5 MG TAB PO PRN (11:15)
[2019-04-09] MEDS ORDERED: RACEPINEPHRINE 2.25% NEBU SOLN 0.5 ML VIAL INH PRN (11:15)
[2019-04-09] MEDS ORDERED: DEXAMETHASONE SOD PHOSPHATE 8 MG in SYRINGE 0 ML IV PRN (11:15)
[2019-04-09] MEDS ORDERED: DO NOT ADMINISTER FLU VACCINE PRN (11:15)
[2019-04-09] MEDS ORDERED: OXYCODONE HCL IR 5 MG TAB (IMMEDIATE RELEASE) PO PRN (11:15)
[2019-04-09] MEDS ORDERED: SCOPOLAMINE 1.5 MG TDSY TD SCH (12:00)
[2019-04-09] MEDS ORDERED: PSEUDOEPHEDRINE HCL 30 MG TAB PO PRN (12:00)
[2019-04-09] MEDS ORDERED: ARTIFICIAL TEARS OP PRN (12:00)
[2019-04-09] MEDS ORDERED: PHARMACY GLYCEMIC MGMT CONSULT PRN (12:06)
[2019-04-09] MEDS: SODIUM CHLORIDE 0.9% 1000ML 1,000 ML IV SCH (12:08)
[2019-04-09] MEDS ORDERED: LANTUS PER UNIT CHARGE SQ ONE (12:30)
[2019-04-09] MEDS ORDERED: GLUCAGON FOR INJ 1 MG VIAL SQ PRN (12:30)
[2019-04-09] MEDS ORDERED: GLUCOSE 40% GEL 15 GM TUBE PO PRN (12:30)
[2019-04-09] MEDS ORDERED: CARBOHYDRATES FOR HYPOGLYCEMIA PO PRN (12:30)
[2019-04-09] MEDS ORDERED: GLUCOSE 10 TABS/TUBE PO PRN (12:30)
[2019-04-09] MEDS ORDERED: DEXTROSE 50% 50 ML SYRINGE IV PRN (12:30)
[2019-04-09] MEDS: INSULIN ASPART 100 UNITS/ML 3 ML PEN SC SCH ×3 (13:06→21:13)
--- NOTE | 2019-04-09 13:55 | Pharmacy Report ---
Glycemic Control Consultation - Date of Service April 09, 2019 - Scope Scope: Glycemic Pharmacist consulted by Dr [] on [date] for glycemic control and to write orders per [facility] inpatient glycemic control protocol - Objective Weight: 86 kg Accuchecks BSG (last 24hrs): 04/09/19 04/09/19 04/09/19 06:44 09:56 12:24 POC Glucose 133 H 176 H 172 H HbA1c: Hemoglobin A1c 6.5 % (4.5-5.6) H 02/14/19 12:15 - Recent Pertinent Medications Outpatient Anti-diabetic Regimen: * Metformin 1 gm BID * A1c = 6.5 % 02/14/19 Risk Factors for Insulin Resistance: * Steroids: Decadron 8 mg IV intraop * Recent Surgery: POD 0 s/p spinal surgery * Diet: Clear liquid - Assessment & Plan Assessment & Plan: ASSESSMENT: * 73 y/o female admitted for spinal surgery. She has a history of type 2 diabetes, well controlled as per the most recent A1c. * Pt is maintained on oral antidiabetic agents as an outpatient * Oral agents are not recommended for inpatient use d/t drug interactions, changing PO intake, and difficulty titrating for acute hyper/hypoglycemia. ADA recommends re-initiating outpatient oral agents 1-2 days prior to discharge if/when appropriate if they were held on admission. * Will hold oral agents for admission and utilize SQ basal bolus insulin regimen which is the recommended regimen for inpatient glycemic control. * Will initiate weight based insulin dosing for insulin katia patient and titrate based on BSG trends. * Will be more aggressive with the Decadron on board, giving a full weight based dose of basal insulin based upon stress level of 2 and Novolog parameters using a stress level of 3 * Anticipate steroids to wear off late tomorrow and metformin can be resumed either POD 1 or 2 as long as patient meets criteria PLAN FOR INPATIENT GLYCEMIC CONTROL: * Holding outpatient oral diabetes medications * Basal insulin * Lantus 30 units x 1 now * Further basal dosing tomorrow dependent on BSGs (can most likely provide a full dose stress level of 1 in the AM) * Bolus insulin * NovoLog per scale ACHS or Q6hrs while NPO + 0200 check for additional coverage if needed * Goal Range: Low 110 mg/dL - High 140 mg/dL * Correction Factor: 20 mg/dL/unit * Nutritional / Prandial insulin per carb ratio of 1 unit per 6 grams CHO consumed Discharge Recommendations: * A1c indicates excellent outpatient control * Resume metformin 1 gm BID Thank you.
[2019-04-09] MEDS: OXYCODONE HCL IR 5 MG TAB (IMMEDIATE RELEASE) PO PRN ×2 (15:02→19:00)
[2019-04-09] MEDS: CEFAZOLIN 2000MG 2,000 MG/15 ML SYR IV SCH (16:24)
[2019-04-09] MEDS: CHECK SCOPOLAMINE PATCH PLACEMENT SCH (16:24)
[2019-04-09] MEDS: FERROUS SULFATE 325 MG TAB PO SCH (18:34)
[2019-04-09] MEDS: ACETAMINOPHEN 325 MG TAB PO PRN (19:01)
[2019-04-09] MEDS: BUDESONIDE/FORMOTEROL FUMARATE 160/4.5 60 PUFFS/INHALER INH SCH (19:57)
[2019-04-09] MEDS: FLUTICASONE PROPIONATE NA SPR 16 GM BTL SCH (19:57)
[2019-04-09] MEDS: MONTELUKAST SODIUM 10 MG TABLET PO SCH (19:59)
[2019-04-09] MEDS: DONEPEZIL HCL 10 MG TAB PO SCH (19:59)
[2019-04-09] MEDS: DULOXETINE HCL 30 MG CAP PO SCH (19:59)
[2019-04-09] MEDS: TRAZODONE HCL 50 MG TAB PO SCH (19:59)
[2019-04-09] MEDS: BuPROPion SR 100 MG TABCR PO SCH (19:59)
[2019-04-09] MEDS: DOCUSATE SODIUM 100 MG CAP PO SCH (19:59)
[2019-04-09] MEDS: lamoTRIgine 100 MG TAB PO SCH (20:00)
[2019-04-09] MEDS: EZETIMIBE/SIMVASTATIN 10/20 TAB PO SCH (20:00)
[2019-04-09] MEDS ORDERED: NON-FORMULARY MEDICATION (Coq10 (Ubiquinol) 100 MG) PO SCH (21:00)
[2019-04-10] MEDS: SODIUM CHLORIDE 0.9% 1000ML 1,000 ML IV SCH
[2019-04-10] MEDS ORDERED: INSULIN ASPART 100 UNITS/ML 3 ML PEN SC ONE (02:00)
[2019-04-10] MEDS: LEVOTHYROXINE SODIUM 100 MCG TABLET PO SCH (05:55)
[2019-04-10] MEDS: OXYCODONE HCL IR 5 MG TAB (IMMEDIATE RELEASE) PO PRN ×3 (05:55→17:35)
[2019-04-10] MEDS: CEFAZOLIN 2000MG 2,000 MG/15 ML SYR IV SCH ×2 (07:38)
[2019-04-10] MEDS: FERROUS SULFATE 325 MG TAB PO SCH ×2 (07:38→16:21)
[2019-04-10] MEDS: CHECK SCOPOLAMINE PATCH PLACEMENT SCH ×3 (07:38→16:20)
[2019-04-10] MEDS: DOCUSATE SODIUM 100 MG CAP PO SCH ×3 (07:39→22:41)
[2019-04-10] MEDS: BuPROPion SR 100 MG TABCR PO SCH ×3 (07:39→22:39)
[2019-04-10] MEDS: CEROVITE ADV FORMULA TAB PO SCH (07:39)
[2019-04-10] MEDS: FOLIC ACID 400 MCG TAB PO SCH (07:39)
[2019-04-10] MEDS: hydroCHLOROthiazide 25 MG TAB PO SCH (07:40)
[2019-04-10] MEDS: CHOLECALCIFEROL 1,000 UNITS TAB PO SCH (07:40)
[2019-04-10] MEDS: PANTOprazole 40 MG TAB PO SCH (07:40)
[2019-04-10] MEDS: DULOXETINE HCL 60 MG CAP PO SCH (07:40)
[2019-04-10] MEDS: LISINOPRIL 20 MG TAB PO SCH (07:40)
[2019-04-10] MEDS: ASPIRIN 81 MG ECTAB PO SCH (07:41)
[2019-04-10] MEDS: BUDESONIDE/FORMOTEROL FUMARATE 160/4.5 60 PUFFS/INHALER INH SCH ×2 (07:41→20:28)
[2019-04-10] MEDS: INSULIN ASPART 100 UNITS/ML 3 ML PEN SC SCH ×4 (08:17→22:06)
--- NOTE | 2019-04-10 08:44 | Orthopedic Progress Note ---
Date of Service April 10, 2019 Assessment & Plan (1) Cervical stenosis of spinal canal: At this time would like to maintain the SHADIA drain another 24 hours. We will advance her diet. Hopefully discharge home tomorrow. Present on Admission?: Yes Subjective Patient is swallowing well. No hoarseness. She feels her arm symptoms are markedly improved. Physical Exam Physical Exam: On exam she is sitting in the chair at the bedside. She has good strength testing. Sensory symmetric and intact testing the upper extremities. Results & Data Vital Signs (Past 12 Hours) Vital Signs Temp Pulse Resp BP Pulse Ox Pulse Ox 04/10/19 08:01 36.7 C 85 18 160/85 H 92 04/10/19 07:45 95 04/10/19 06:51 89 18 94 04/10/19 06:00 36.5 C 82 14 146/81 H 96 04/10/19 04:06 79 20 97 04/10/19 03:59 36.9 C 79 16 140/81 95 04/10/19 01:57 36.8 C 77 14 131/77 96 04/10/19 00:00 36.6 C 80 14 118/77 96 04/09/19 23:16 82 20 98 04/09/19 22:10 82 16 143/83 H 97
[2019-04-10] MEDS ORDERED: LANTUS PER UNIT CHARGE SQ ONE ×2 (09:30→15:00)
--- NOTE | 2019-04-10 09:34 | Pharmacy Report ---
Pharmacy Glycemic Short Note 2 - Date of Service April 10, 2019 - Glycemic Short BSG Results (Last 24 hours): 04/09/19 04/09/19 04/09/19 09:56 12:24 18:21 POC Glucose 176 H 172 H 218 H 04/09/19 04/10/19 04/10/19 20:23 01:33 08:11 POC Glucose 189 H 119 H 188 H OUTPATIENT ANTIDIABETIC REGIMEN: * Metformin 1g PO BID ASSESSMENT: 04/10/19 * Blood sugar slightly elevated this morning, will give one time dose of Lantus for lingering IV steroid effects. * Diet advanced to full liquid, hoping for discharge tomorrow, wait until tomorrow to resume metformin. * Note - elevated BSG of 218mg/dl yesterday at dinner time was drawn after pt had already eaten. 04/09/19 * 73 y/o female admitted for spinal surgery. She has a history of type 2 diabetes, well controlled as per the most recent A1c. * Pt is maintained on oral antidiabetic agents as an outpatient * Oral agents are not recommended for inpatient use d/t drug interactions, changing PO intake, and difficulty titrating for acute hyper/hypoglycemia. ADA recommends re-initiating outpatient oral agents 1-2 days prior to discharge if/when appropriate if they were held on admission. * Will hold oral agents for admission and utilize SQ basal bolus insulin regimen which is the recommended regimen for inpatient glycemic control. * Will initiate weight based insulin dosing for insulin katia patient and titrate based on BSG trends. * Will be more aggressive with the Decadron on board, giving a full weight based dose of basal insulin based upon stress level of 2 and Novolog parameters using a stress level of 3 * Anticipate steroids to wear off late tomorrow and metformin can be resumed either POD 1 or 2 as long as patient meets criteria PLAN FOR INPATIENT GLYCEMIC CONTROL: * Hold outpatient oral diabetes medications * Basal insulin * Lantus 15 units SQ x1 * Bolus insulin * NovoLog per scale ACHS or Q6hrs while NPO * Goal Range: Low 110 mg/dL - High 140 mg/dL * Correction Factor: 20 mg/dL/unit * Nutritional / Prandial insulin per carb ratio of 1 unit per 6 grams CHO consumed Discharge Recommendations: * A1c indicates excellent outpatient control * Resume metformin 1 gm BID
[2019-04-10] MEDS: HYDROmorphone INJ 0.5 MG/0.5 ML SYR IV PRN ×2 (14:28→20:56)
[2019-04-10] MEDS ORDERED: DEXAMETHASONE SOD PHOSPHATE 10 MG in SYRINGE 0 ML IV ONE (14:45)
[2019-04-10] MEDS: DULOXETINE HCL 30 MG CAP PO SCH ×2 (20:22→22:39)
[2019-04-10] MEDS: DONEPEZIL HCL 10 MG TAB PO SCH (20:22)
[2019-04-10] MEDS: TRAZODONE HCL 50 MG TAB PO SCH (20:23)
[2019-04-10] MEDS: lamoTRIgine 100 MG TAB PO SCH (20:23)
[2019-04-10] MEDS: OMEGA-3 (PURIFIED FISH OIL) 1 GM CAP PO SCH ×2 (20:24→22:41)
[2019-04-10] MEDS: MONTELUKAST SODIUM 10 MG TABLET PO SCH (20:25)
[2019-04-10] MEDS: EZETIMIBE/SIMVASTATIN 10/20 TAB PO SCH (20:25)
[2019-04-10] MEDS: FLUTICASONE PROPIONATE NA SPR 16 GM BTL SCH (20:28)
[2019-04-10] MEDS: ACETAMINOPHEN 325 MG TAB PO PRN (20:34)
[2019-04-10] MEDS ORDERED: MEMANTINE HCL 14 MG PO SCH (21:00)
[2019-04-10] MEDS: dexAMETHasone 8 MG in SYRINGE 0 ML IV SCH (23:16)
[2019-04-11] MEDS ORDERED: INSULIN ASPART 100 UNITS/ML 3 ML PEN SC SCH
[2019-04-11] MEDS: CHECK SCOPOLAMINE PATCH PLACEMENT SCH ×2 (00:19→07:58)
[2019-04-11] MEDS: OXYCODONE HCL IR 5 MG TAB (IMMEDIATE RELEASE) PO PRN ×3 (01:50→12:41)
[2019-04-11] MEDS: dexAMETHasone 8 MG in SYRINGE 0 ML IV SCH (06:04)
[2019-04-11] MEDS: LEVOTHYROXINE SODIUM 100 MCG TABLET PO SCH (06:09)
[2019-04-11] MEDS: FOLIC ACID 400 MCG TAB PO SCH (07:54)
[2019-04-11] MEDS: LISINOPRIL 20 MG TAB PO SCH (07:57)
[2019-04-11] MEDS: hydroCHLOROthiazide 25 MG TAB PO SCH (07:57)
[2019-04-11] MEDS: ASPIRIN 81 MG ECTAB PO SCH (07:58)
[2019-04-11] MEDS: DULOXETINE HCL 60 MG CAP PO SCH (07:58)
[2019-04-11] MEDS: FERROUS SULFATE 325 MG TAB PO SCH (07:58)
[2019-04-11] MEDS: PANTOprazole 40 MG TAB PO SCH (07:58)
[2019-04-11] MEDS: DOCUSATE SODIUM 100 MG CAP PO SCH (07:59)
[2019-04-11] MEDS: CHOLECALCIFEROL 1,000 UNITS TAB PO SCH (07:59)
[2019-04-11] MEDS: BUDESONIDE/FORMOTEROL FUMARATE 160/4.5 60 PUFFS/INHALER INH SCH (07:59)
[2019-04-11] MEDS: CEROVITE ADV FORMULA TAB PO SCH (07:59)
[2019-04-11] MEDS: OMEGA-3 (PURIFIED FISH OIL) 1 GM CAP PO SCH (07:59)
[2019-04-11] MEDS: BuPROPion SR 100 MG TABCR PO SCH (07:59)
[2019-04-11] MEDS: INSULIN ASPART 100 UNITS/ML 3 ML PEN SC SCH ×2 (08:27→12:38)
[2019-04-11] MEDS ORDERED: MEMANTINE HCL 14 MG PO SCH (09:00)
[2019-04-11] MEDS ORDERED: BISACODYL 5 MG TABEC PO PRN (09:50)
--- NOTE | 2019-04-11 11:18 | Discharge Summary ---
Date of Service April 11, 2019 Admission HPI Per Admitting Provider This is a 73-year-old female who presents with chronic persistent neck and arm symptoms and is here for surgical intervention. Principal Diagnosis Cervical spinal stenosis with myeloradiculopathy Discharge Data Allergies Allergy/AdvReac Type Severity Reaction Status Date / Time miconazole Allergy Intermediate SEVERE Verified 04/09/19 06:50 BURNING ITCHING morphine Allergy Mild ITCHING Verified 04/09/19 06:50 codeine AdvReac Mild DYSPEPSIA Verified 04/09/19 06:50 doxycycline AdvReac Mild GASTRITIS Verified 04/09/19 06:50 Macrolide Antibiotics AdvReac Mild DYSPEPSIA Verified 04/09/19 06:50 (TOLERATED Z-PACK) Procedures Performed Operation Date: 03/05/19 07:45 <No data on this case meets the specified criteria> Operation Date: 04/09/19 07:45 Actual Procedures p C5 Corpectomy, C6-C7 Anterior Cervical Discectomy and Fusion, Spinal Cord Monitoring(Not Applicable) - Hu Pantoja DO Ordered Studies 04/09/19 07:45 FL cervical 2-3V Routine FL fluoroscopy <1hr Routine Hospital Course (1) Cervical stenosis of spinal canal: Patient underwent anterior corpectomy and fusion tolerated as well as taken to orthopedic for postoperative. Postop day 1 she was swallowing well. No hoarseness. Arm symptoms markedly improved. We maintain the SHADIA drain another 24 hours. She continued to progress. Subsequently discharged home the following day. Discharge orders and instructions from the chart for further review. Total Time Total Time Spent Total Time Spent (In Minutes): 20 minutes Discharge Plan Discharge Items Patient Disposition: Home - Self-Care Reason For Visit: Spinal Stenosis, Cervical Region Discharge Diagnosis: cervical stenosis Discharge Goals: Decrease discomfort Activity: Per 'Additional Instructions' section Non-emergency contact: Primary Care Provider Call non-emergency contact if: you have any medication questions Follow-up/Referrals: Papo Keyes MD [Primary Care Provider] - Diet: Regular Addtl Provider Instructions: ACTIVITY RECOMMENDATIONS: SELF CARE INSTRUCTIONS AFTER CERVICAL FUSIONS 1. No smoking. Smoking drastically decreases the chance of a solid fusion. 2. No bending, lifting more than 5 pounds, or twisting (roll like a log when turning in bed). 3. You may shower 3 days after surgery. Thoroughly dry wound. Do not soak in the tub. 4. Cervical collar: Must be worn at all times including sleeping. You may remove the brace only to bath, eat and if you are sitting in a recliner. 5. Please walk as much as you can for exercise. Gradually increase the distance that you walk as your endurance increases. SPECIAL CARE INSTRUCTIONS: VERY IMPORTANT TO READ AND REVIEW A. Do not take any anti-inflammatory medications (i.e. Indocin, Advil, Aspirin, Naprosyn, Aleve, Motrin, etc.) as these may inhibit the chance of a solid fusion. Tylenol is okay to take. B. Your surgical incision has been closed with a cosmetic suture under the skin that will dissolve in about 6 weeks. In 14 days, you can use a pair of clean scissors and cut the suture that is left outside of the skin at the ends of your incision. C. Complications are uncommon, but please contact us if you have any signs or symptoms of: 1. wound infection (fever higher than 102.5 degrees F, redness, separation of wound, drainage, or increasing pain from the incision) 2. blood clots in legs (pain, swelling, redness and warmth in legs) 3. urinary tract infection (fever higher than 102.5 degrees, burning upon urination or increased frequency of urination) 4. nerve problems (inability to walk on your toes or heels, numbness, loss of bowel or bladder control) 5. any other symptoms that concern you. D. Please call the office at if you have any concerns or questions about your operation or recovery. MANAGING PAIN AFTER SPINAL SURGERY 1. Narcotic medication is intended for short-term use and will be provided for surgical pain. Surgical pain usually lasts for a period of 4-6 weeks. Narcotic medication includes Percocet, Vicodin, Darvocet, Tylenol #3 or Lortab. 2. Longer-term pain is more appropriately treated with non-narcotic medication such as Tylenol ES. 3. Muscle spasm is not appropriately treated with narcotics. Muscle relaxers such as Soma, Flexeril or Skelaxin can be used along with Tylenol ES. 4. Remember that we all live with some "aches and pains". This is not unusual or uncommon after an injury or as we get older. 5. We will provide appropriate medication within the normal guidelines of their prescribed use. We will also be very cautious and aware of potential abuse and extended duration of patients' medication needs. 6. Please allow 2-3 days to process refills. Prescriptions will not be mailed but must be picked up at the office. FOLLOW UP VISIT: Keep your scheduled follow-up appointment. Any questions, please call the office at . Prescriptions: New oxycodone 5 mg Tablet 5 mg PO Q4H PRN (Reason: Pain) Qty: 30 RF: 0 Continued bupropion HCl [Wellbutrin SR] 100 mg Tablet Sustained-Release 12 Hr 100 mg PO BID RF: 0 hydrochlorothiazide 25 mg Tablet 25 mg PO QAM RF: 0 duloxetine [Cymbalta] 30 mg Capsule,Delayed Release(Dr/Ec) 30 mg PO QPM RF: 0 duloxetine [Cymbalta] 60 mg Capsule,Delayed Release(Dr/Ec) 60 mg PO QAM RF: 0 celecoxib [Celebrex] 200 mg Capsule 200 mg PO QAM RF: 0 lamotrigine [Lamictal] 150 mg Tablet 150 mg PO HS RF: 0 trazodone 50 mg Tablet 50 mg PO HS RF: 0 ranitidine HCl 300 mg Tablet 300 mg PO BID RF: 0 donepezil [Aricept] 10 mg Tablet 10 mg PO HS RF: 0 lisinopril 20 mg Tablet 20 mg PO QAM RF: 0 aspirin [Aspir-81] 81 mg Tablet,Delayed Release (Dr/Ec) 81 mg PO QAM RF: 0 acetaminophen [Tylenol Arthritis Pain] 650 mg Tablet Extended Release 2 tab PO Q8H PRN (Reason: Pain) RF: 0 levothyroxine 100 mcg Tablet 100 mcg PO QAM RF: 0 lorazepam [Ativan] 0.5 mg Tablet 0.5 - 1 tab PO DAILY PRN (Reason: Anxiety) RF: 0 ferrous sulfate [Feosol] 325 mg (65 mg iron) Tablet 325 mg PO BID RF: 0 metformin 1,000 mg Tablet 1,000 mg PO BID RF: 0 esomeprazole magnesium [Nexium] 40 mg Capsule,Delayed Release(Dr/Ec) 40 mg PO QAM RF: 0 montelukast [Singulair] 10 mg Tablet 10 mg PO HS RF: 0 fluticasone propionate [Flonase Allergy Relief] 50 mcg/actuation [place],Suspension 2 spray INTRANASAL HS RF: 0 vitamin E 400 unit Capsule 400 unit PO HS RF: 0 Refresh Liquigel 1 % Drops, Liquid Gel 2 drp OPHTHALMIC (EYE) BID PRN (Reason: Dry Eyes) RF: 0 oxycodone 5 mg Tablet 5 mg PO Q6H PRN (Reason: Pain) RF: 0 Multivitamin 50 Plus Tablet 1 tab PO QAM RF: 0 cyclobenzaprine 5 mg Tablet 5 mg PO Q6H PRN (Reason: Pain) RF: 0 ezetimibe-simvastatin [Vytorin 10-20] 10-20 mg Tablet 1 tab PO HS RF: 0 Sudafed PE 10 mg Tablet 10 mg PO Q4H PRN (Reason: Nasal Congestion) RF: 0 folic acid 0.8 mg Capsule 0.8 mg PO QAM RF: 0 cholecalciferol (vitamin D3) [Vitamin D3] 1,000 unit Tablet 1,000 unit PO QAM RF: 0 Symbicort 160-4.5 mcg/actuation Hfa Aerosol Inhaler 2 puff INHALATION BID RF: 0 omega 0-arc-wzm-fish oil [Fish Oil] 1,000 mg (120 mg-180 mg) Capsule 1 cap PO BID RF: 0 coQ10 (ubiquinol) 100 mg Capsule 100 mg PO BID RF: 0 memantine [Namenda XR] 14 mg Capsule,Sprinkle,Er 24hr 14 mg PO QAM RF: 0 albuterol sulfate 90 mcg/actuation Aerosol Powdr Breath Activated 2 inh INHALATION Q4H PRN (Reason: SHORT OF BREATH) RF: 0 Caltrate + D3 Plus Minerals 300 mg-800 unit -25 mg-0.5 mg Tablet 1 tab PO BID RF: 0 Stand-Alone Forms: [facility]/Other Patient Handouts: Diabetes Type 2 Coping Discharge Orders: Discharge Order (Routine); Ordered 04/11/19 Ordered By: Hu Pantoja Admission Data Admit Date/Time: 04/09/19 09:51 Attending Provider: Hu Pantoja Admit Provider: Hu Pantoja Primary Care Provider: Papo Keyes Service: Surgical Services
== END 2019-04-11 13:32 | disposition home or self-care (01) | DRG 472 ==
LOC: ASU 06:19 → 3E 09:51

== ENCOUNTER 2020-10-04 12:29 | Inpatient (IN) ==
[2020-10-04] MEDS ORDERED: MoRPHine SULFATE 4 MG/ML 1 ML CARP\\VIAL IV STA (13:34)
[2020-10-04] MEDS ORDERED: diphenhydrAMINE 50 MG/ML VIAL IV STA (13:34)
[2020-10-04] MEDS ORDERED: ACETAMINOPHEN 1,000 MG/100 ML VIAL IV STA (13:34)
--- NOTE | 2020-10-04 14:21 | Emergency Department Note ---
History of Present Illness General Chief complaint: Fall Stated complaint: Fell in bathroom this AM. Time Seen by Provider: 10/04/20 13:25 Source: patient, EMS, RN notes reviewed and old records reviewed Mode of arrival: EMS Limitations: no limitations History of Present Illness Provider complaint: Fall Onset (ago): hour(s) less than 1 Location: back Severity: moderate Maximum Pain Intensity: 5 Current Pain Intensity: 5 Quality: + aching Relieved By: + immobilization and + rest Exacerbated By: + movement Associated symptoms: + weakness; no chest pain, no fever/chills, no headaches, no nausea/vomiting and no shortness of breath Treatments prior to arrival: none This 74-year-old female who presents emergency department complaining of weakness to her left leg. The patient had an abnormal MRI performed last week. She presents to the emergency department complaining of weakness to her left leg. She has had 2 falls due to the weakness. She called Dr. Pantoja's office and was sent to the emergency department. She is complaining of pain to the back made better with rest. She reports movement makes the pain much worse. She has not taken anything for the pain prior to arrival. Home Medications Medication Instructions Recorded Confirmed Type Caltrate + D3 Plus Minerals 1 tab PO BID 02/13/19 10/04/20 History Multivitamin 50 Plus 1 tab PO QAM 02/13/19 10/04/20 History Refresh Liquigel 2 drp OPHTHALMIC (EYE) BID PRN 02/13/19 10/04/20 History acetaminophen [Tylenol Arthritis 2 tab PO Q8H PRN 02/13/19 10/04/20 History Pain] albuterol sulfate 2 inh INHALATION Q4H PRN 02/13/19 10/04/20 History aspirin [Aspir-81] 81 mg PO QAM 02/13/19 10/04/20 History budesonide-formoterol [Symbicort] 2 puff INHALATION BID 02/13/19 10/04/20 Histo ry bupropion HCl [Wellbutrin SR] 100 mg PO BID 02/13/19 10/04/20 History celecoxib [Celebrex] 200 mg PO QAM 02/13/19 10/04/20 History cholecalciferol (vitamin D3) 1,000 unit PO QAM 02/13/19 10/04/20 History [Vitamin D3] coQ10 (ubiquinol) 100 mg PO BID 02/13/19 10/04/20 History cyclobenzaprine 5 mg PO Q6H PRN 02/13/19 10/04/20 History donepezil [Aricept] 10 mg PO HS 02/13/19 10/04/20 History duloxetine [Cymbalta] 30 mg PO QPM 02/13/19 10/04/20 History duloxetine [Cymbalta] 60 mg PO QAM 02/13/19 10/04/20 History esomeprazole magnesium [Nexium] 40 mg PO QAM 02/13/19 10/04/20 History ezetimibe-simvastatin [Vytorin 1 tab PO HS 02/13/19 10/04/20 History 10-20] fluticasone propionate [Flonase 2 spray INTRANASAL HS 02/13/19 10/04/20 History Allergy Relief] folic acid 0.8 mg PO QAM 02/13/19 10/04/20 History lamotrigine [Lamictal] 150 mg PO HS 02/13/19 10/04/20 History levothyroxine 100 mcg PO QAM 02/13/19 10/04/20 History memantine [Namenda XR] 14 mg PO QAM 02/13/19 10/04/20 History metformin 1,000 mg PO BID 02/13/19 10/04/20 History montelukast [Singulair] 10 mg PO HS 02/13/19 10/04/20 History omega 2-fir-rvi-fish oil [Fish Oil] 1 cap PO BID 02/13/19 10/04/20 History oxycodone 7.5 mg PO Q6H PRN 02/13/19 10/04/20 History phenylephrine HCl [Sudafed PE] 10 mg PO Q4H PRN 02/13/19 10/04/20 History vitamin E 400 unit PO HS 02/13/19 10/04/20 History trazodone 50 mg tablet 25 mg PO HS tab 11/13/19 10/04/20 History chlorpheniramine 4 1 tab PO Q4H PRN 11/26/19 10/04/20 History mg-phenylephrine 10 mg tablet famotidine 40 mg tablet 40 mg PO BID 04/12/20 10/04/20 History furosemide 40 mg tablet 40 mg PO DAILY #90 tab 07/14/20 10/04/20 Rx magnesium oxide 400 mg PO .COMPLEX #30 cap 07/14/20 10/04/20 Rx lisinopril 40 mg PO DAILY 10/03/20 10/04/20 History Allergies Allergy/AdvReac Type Severity Reaction Status Date / Time miconazole Allergy Intermediate SEVERE Verified 10/03/20 20:42 BURNING ITCHING morphine Allergy Mild ITCHING Verified 10/03/20 20:42 erythromycin base Allergy Unknown Verified 10/03/20 20:42 codeine AdvReac Mild DYSPEPSIA Verified 10/03/20 20:42 doxycycline AdvReac Mild GASTRITIS Verified 10/03/20 20:42 Macrolide Antibiotics AdvReac Mild DYSPEPSIA Verified 10/03/20 20:42 (TOLERATED Z-PACK) Past Med/Surg History Medical History Anemia Anxiety Asthma STABLE Cyclothymic disorder MOOD DISORDER Depression Diabetes mellitus, type 2 NIDDM Dry eye syndrome Dyspepsia CHRONIC FELT D/T MEDICATION INTERACTIONS (POLYPHARMACY) Fibromyalgia GERD (gastroesophageal reflux disease) OCCASIONAL History of blood transfusion REMOTE POST-OP Hyperlipidemia Hypertension Hypothyroidism Kidney stones Migraine 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 Osteoarthritis Peripheral neuropathy B/L UE/LE Sleep apnea BIPAP Spinal stenosis Ventral hernia Surgical History Fusion of spine LUMBAR X2 H/O foot surgery RIGHT HAMMERTOE AND BUNION REPAIR H/O: hysterectomy + ANTERIOR/POSTERIOR REPAIR History of bladder surgery SUSPENSION History of cataract surgery RIGHT/LEFT History of section History of cholecystectomy History of colonoscopy History of esophagogastroduodenoscopy (EGD) History of shoulder surgery RIGHT SHOULDER History of surgery perianal fistula History of tonsillectomy Adenoidectomy History of tooth extraction History of total knee replacement RIGHT/LEFT History of vaginal hysterectomy Family History Mother Family history of diabetes mellitus COPD (chronic obstructive pulmonary disease) Diabetes Hypertension Brother Family history of diabetes mellitus Diabetes Renal failure Sister Family history of diabetes mellitus Malignant melanoma Uncle Family hx of colon cancer Colorectal cancer Paternal Aunt Breast cancer Maternal Ovarian cancer Paternal Social History Smoking Status: Never smoker Second Hand Exposure: No; Hx Alcohol Use: No Hx Substance Use: No Preferred Language: Arabic Communication Ability: Effective Visual Impairment: Limited Hearing Ability: Hard of Hearing Ballroom Dancer Required: No Beliefs That Will Affect Care: None Current Living Situation: Spouse Feels Safe at Home: Yes Safety Concerns: Feels Safe At This Time Assistive Devices: Glasses, Hearing Aid - Bilateral and Walker Assistive Devices Comment: Personal devices not at hospital at this time Review of Systems A total of 10 systems reviewed and were otherwise negative Physical Exam Vital Signs Vital Signs - 24 hr 10/04/20 12:30 10/04/20 13:31 10/04/20 13:33 Temperature 36.8 C Temperature Source Oral Pulse Rate 88 78 80 Pulse Rate from SpO2 Sensor 70 Pulse Rhythm Regular Regular Pulse Strength Normal Respiratory Rate 18 20 21 Respiratory Effort / Characteristics Non-Labored Spontaneous Respiratory Depth Normal Respiratory Pattern Regular Blood Pressure 167/85 H 128/78 Blood Pressure Mean 112 88 Blood Pressure Position Lying Pulse Oximetry 98 95 100 Oxygen Delivery Method Room Air Room Air Sepsis Recent Fever Within 48 Hours No Sepsis New/Unexplained Change in Mental Status N/A Sepsis Action Taken by Nursing No Action Required 10/04/20 14:11 10/04/20 14:30 10/04/20 15:00 Temperature Temperature Source Pulse Rate 82 81 76 Pulse Rate from SpO2 Sensor 82 80 76 Pulse Rhythm Pulse Strength Respiratory Rate 18 14 19 Respiratory Effort / Characteristics Respiratory Depth Respiratory Pattern Blood Pressure 149/69 H 171/98 H 152/88 H Blood Pressure Mean 89 118 100 Blood Pressure Position Pulse Oximetry 99 98 98 Oxygen Delivery Method Sepsis Recent Fever Within 48 Hours Sepsis New/Unexplained Change in Mental Status Sepsis Action Taken by Nursing 10/04/20 15:30 10/04/20 16:00 10/04/20 16:31 Temperature Temperature Source Pulse Rate Pulse Rate from SpO2 Sensor 78 81 77 Pulse Rhythm Pulse Strength Respiratory Rate Respiratory Effort / Characteristics Respiratory Depth Respiratory Pattern Blood Pressure 151/87 H 134/79 158/74 H Blood Pressure Mean 104 95 101 Blood Pressure Position Pulse Oximetry 97 99 92 Oxygen Delivery Method Sepsis Recent Fever Within 48 Hours Sepsis New/Unexplained Change in Mental Status Sepsis Action Taken by Nursing VITAL SIGNS - Vital signs and nursing notes were reviewed. GENERAL - 74-year-old female appearing stated age who is in no acute distress. Communicates well with provider and answers questions appropriately. SKIN - Without rashes. HEAD - NC/AT. EYES - PERRL with EOMI bilaterally. Sclera anicteric. Palpebral conjunctiva pink and moist with no injection noted. EARS - No deformities of external structures noted on gross examination bilaterally. No pain elicited with palpation of the tragus bilaterally. External auditory canals without discharge or otorrhea. Tympanic membranes pearly jules without retraction or bulging. No fluid or purulent material visualized behind the TM. Handle of malleus, umbo, cone of light, pars tensa/flaccid all easily visualized. NOSE - Midline and without cyanosis. No epistaxis or purulent drainage noted. Septum midline without deviation or septal hematoma noted. MOUTH/OROPHARYNX - Without perioral cyanosis. Buccal mucosa pink and moist and without leukoplakia. Tongue midline with equal elevation of palate bilaterally. No tonsillar hypertrophy, erythema, or exudates noted. dentition noted. NECK - Neck with FROM. Supple to palpation. lymphadenopathy noted. No nuchal rigidity. LUNGS - Chest wall symmetric without accessory muscle use, intercostals retractions, or central cyanosis. Normal vesicular breath sounds CTA B/L. No wheezes, rales, or rhonchi appreciated. CARDIAC - RRR with S1/S2. No murmur, rubs, or gallops appreciated. ABDOMEN - Abdominal contour without pulsations or visible masses. BS normoactive all four quadrants. No tenderness, palpable masses, hepatosplenomegaly, or ascites noted. EXTREMITIES - +4/5 strengtyh bilateral, Pt 2/2 reflexes lower extremity b/l, neurovascularly intact NEUROLOGIC - Cranial nerves II through XII grossly intact. Sensory intact to light touch throughout. Patellar reflexes +2/4. PSYCH - A&Ox3 and cooperates fully with examiner. Pt is very pleasant and interacts well with examiner. Course Administered Medications Aspirin (Aspirin 81 Mg Ectab) 81 mg PO QAM [facility] Stop: 11/04/20 08:59 Last Admin: 10/05/20 08:16 Dose: Not Given Documented by: [id number] Bupropion HCl (Bupropion Sr 100 Mg Tabcr) 100 mg PO BID [facility] Stop: 11/03/20 20:59 Last Admin: 10/05/20 08:20 Dose: 100 mg Documented by: [id number] Admin: 10/04/20 20:42 Dose: 100 mg Documented by: [id number] Docusate Sodium (Docusate Sodium 100 Mg Cap) 100 mg PO BID [facility] Stop: 11/03/20 20:59 Last Admin: 10/05/20 08:16 Dose: Not Given Documented by: [id number] Admin: 10/04/20 20:41 Dose: 100 mg Documented by: [id number] Donepezil HCl (Donepezil Hcl 10 Mg Tab) 10 mg PO HS [facility] Stop: 11/03/20 20:59 Last Admin: 10/04/20 20:41 Dose: 10 mg Documented by: [id number] Duloxetine HCl (Duloxetine Hcl 60 Mg Cap) 60 mg PO QAM [facility] Stop: 11/04/20 08:59 Last Admin: 10/05/20 08:19 Dose: 60 mg Documented by: [id number] Duloxetine HCl (Duloxetine Hcl 30 Mg Cap) 30 mg PO QPM [facility] Stop: 11/03/20 20:59 Last Admin: 10/04/20 20:41 Dose: 30 mg Documented by: [id number] Ezetimibe/Simvastatin (Ezetimibe/Simvastatin 08/03 Tab) 1 tab PO HS [facility] Stop: 11/03/20 20:59 Last Admin: 10/04/20 20:41 Dose: 1 tab Documented by: [id number] Fluticasone/Vilanterol (Fluticasone/Vilanterol 200/25mcg 14 Puffs/Inhaler) 1 puffs INH DAILY [facility]; Protocol Stop: 11/04/20 08:59 Last Admin: 10/05/20 08:19 Dose: 1 puffs Documented by: [id number] Hydromorphone HCl (Hydromorphone Inj 0.5 Mg/0.5 Ml Syr) 0.5 mg IV Q3H PRN PRN Reason: Pain (6,7,8,9,10) Stop: 10/18/20 17:35 Last Admin: 10/05/20 08:20 Dose: 0.5 mg Documented by: [id number] Admin: 10/05/20 04:44 Dose: 0.5 mg Documented by: [id number] Lactated Ringer's (Lr) 1,000 mls @ 15 mls/hr IV .Q24H [facility] Stop: 11/03/20 17:35 Last Infusion: 10/05/20 15:23 Dose: 0 mls/hr Documented by: [id number] Infusion: 10/05/20 11:45 Dose: 0 mls/hr Documented by: [id number] Admin: 10/04/20 18:01 Dose: 15 mls/hr Documented by: [id number] Sodium Chloride (Nss 1000ml) 1,000 mls @ 100 mls/hr IV .Q10H [facility] Stop: 11/04/20 15:05 Last Admin: 10/05/20 16:28 Dose: 100 mls/hr Documented by: [id number] Acetaminophen ([facility]) 1,000 mg in 100 mls @ 400 mls/hr IV Q8H PRN PRN Reason: MILD Pain Rating 1,2,3 Stop: 10/06/20 15:05 Last Infusion: 10/05/20 16:28 Dose: 0 mls/hr Documented by: [id number] Admin: 10/05/20 15:43 Dose: 400 mls/hr Documented by: [id number] Clindamycin Phosphate 600 mg/ (Dextrose) 54 mls @ 100 mls/hr IV Q8H [facility] Stop: 10/06/20 00:33 Last Infusion: 10/05/20 17:09 Dose: 0 mls/hr Documented by: [id number] Admin: 10/05/20 16:28 Dose: 100 mls/hr Documented by: [id number] Levothyroxine Sodium (Levothyroxine Sodium 100 Mcg Tablet) [facility]: 11/04/20 06:29 Last Admin: 10/05/20 06:21 Dose: 100 mcg Documented by: [id number] Montelukast Sodium (Montelukast Sodium 10 Mg Tablet) 10 mg PO [facility] Stop: 11/03/20 20:59 Last Admin: 10/04/20 20:42 Dose: 10 mg Documented by: [id number] Oxycodone HCl (Oxycodone Hcl Ir 5 Mg Tab (Immediate Release)) 5 mg PO Q4H PRN PRN Reason: MODERATE Pain (4,5,6) & Pre PT Stop: 10/18/20 17:35 Last Admin: 10/04/20 20:41 Dose: 5 mg Documented by: [id number] Oxycodone HCl (Oxycodone Hcl Ir 5 Mg Tab (Immediate Release)) 10 mg PO Q4H PRN PRN Reason: SEVERE Pain (7,8,9,10) Stop: 10/18/20 17:35 Last Admin: 10/05/20 15:43 Dose: 10 mg Documented by: [id number] Trazodone HCl (Trazodone Hcl 50 Mg Tab) 25 mg PO HS [facility] Stop: 11/03/20 20:59 Last Admin: 10/04/20 20:42 Dose: 25 mg Documented by: [id number] Discontinued Medications Albuterol (Albut/Ipratrop 3mg/0.5mg Neb 3 Ml Vial) 3 ml NEB NOW STA Stop: 10/05/20 13:36 Last Admin: 10/05/20 13:45 Dose: 3 ml Documented by: [id number] Bacitracin (Bacitracin Inj 50,000 Unit Vial) Confirm Administered Dose 50,000 units .ROUTE .STK-MED ONE Stop: 10/05/20 10:04 Last Admin: 10/05/20 11:00 Dose: 50,000 units Documented by: [id number] Bupivacaine HCl/Epinephrine Bitart (Bupivacaine/Epinephrine 0.5% Mpf 1:200,000 30 Ml Vial) Confirm Administered Dose 30 ml .ROUTE .STK-MED ONE Stop: 10/05/20 10:03 Last Admin: 10/05/20 11:00 Dose: 30 ml Documented by: [id number] Diphenhydramine HCl (Diphenhydramine 50 Mg/Ml Vial) 25 mg IV NOW STA Stop: 10/04/20 13:35 Last Admin: 10/04/20 14:07 Dose: 25 mg Documented by: [id number] Fentanyl Citrate (Fentanyl Citrate 100 Mcg/2 Ml Vial) 50 mcg IV Q5M PRN PRN Reason: PACU Use Only-Pain Stop: 10/05/20 17:28 Last Admin: 10/05/20 13:50 Dose: 50 mcg Documented by: [id number] Admin: 10/05/20 13:45 Dose: 50 mcg Documented by: [id number] Admin: 10/05/20 13:27 Dose: 50 mcg Documented by: [id number] Admin: 10/05/20 13:22 Dose: 50 mcg Documented by: [id number] Acetaminophen (Ofirmev) 1,000 mg in 100 mls @ 400 mls/hr IV NOW STA Stop: 10/04/20 13:48 Last Infusion: 10/04/20 14:27 Dose: 0 mls/hr Documented by: [id number] Admin: 10/04/20 14:09 Dose: 400 mls/hr Documented by: [id number] Cefazolin Sodium (Ancef 2000mg) 2,000 mg in 15 mls @ 3.75 mls/min IV PREOP [facility]; Protocol Stop: 10/05/20 18:00 Last Admin: 10/05/20 10:13 Dose: 3.75 mls/min Documented by: [id number] Insulin Aspart (Insulin Aspart 100 Units/Ml 3 Ml Pen) 0 units SC ACHS [facility] Stop: 11/03/20 18:14 Last Admin: 10/04/20 21:46 Dose: 2 units Documented by: [id number] Cosigned by: [id number] Admin: 10/04/20 18:58 Dose: 3 units Documented by: [id number] Cosigned by: [id number] Insulin Aspart (Insulin Aspart 100 Units/Ml 3 Ml Pen) 0 units SC Q6 [facility] Stop: 11/04/20 05:59 Last Admin: 10/05/20 19:01 Dose: 8 units Documented by: [id number] Cosigned by: [id number] Admin: 10/05/20 13:40 Dose: Not Given Documented by: [id number] Cosigned by: [id number] Admin: 10/05/20 06:06 Dose: Not Given Documented by: [id number] Cosigned by: [id number] Insulin Glargine (Insulin Glargine Solostar 100 Units/Ml 3 Ml Pen) 10 units SC ONE ONE Stop: 10/04/20 21:01 Last Admin: 10/04/20 21:48 Dose: 10 units Documented by: [id number] Cosigned by: [id number] Insulin Glargine (Insulin Glargine Solostar 100 Units/Ml 3 Ml Pen) 15 units SC ONE ONE; Protocol Stop: 10/05/20 13:46 Last Admin: 10/05/20 16:27 Dose: 15 units Documented by: [id number] Cosigned by: [id number] Lorazepam (Lorazepam 1 Mg Tab) 1 mg PO Q6H PRN PRN Reason: Anxiety/spasms Stop: 11/03/20 17:35 Last Admin: 10/04/20 21:55 Dose: 0.5 mg Documented by: [id number] Miscellaneous ( Floseal Hemostatic Matrix 10ml) 20 ml TOP ONCE ONE Stop: 10/05/20 11:06 Last Admin: 10/05/20 11:09 Dose: 20 ml Documented by: [id number] Morphine Sulfate (Morphine Sulfate 4 Mg/Ml 1 Ml Carp\Vial) 4 mg IV NOW STA Stop: 10/04/20 13:35 Last Admin: 10/04/20 14:08 Dose: 4 mg Documented by: [id number] Medical Decision Making Differential Diagnosis Fracture, dislocation, contusion, intra-abdominal, pneumothorax, intrathoracic, intracranial, neurologic, compartment syndrome, rhabdomyolysis, as well as other pathologies. Medical Records Attestation: I reviewed the patient's medical records. Home Medications Current Medication List: was personally reviewed by me Laboratory Data Attestation: I reviewed the patient's lab results. Result diagrams: 10/05/20 06:27 10/05/20 06:27 Lab Results 10/04/20 10/04/20 10/04/20 Range/Units 14:05 14:05 14:05 WBC 7.65 (4.8-10.8) K/uL RBC 4.22 (4.2-5.4) M/uL Hgb 11.5 L (12.0-16.0) g/dL Hct 36.0 L (37-47) % MCV 85.3 (80-100) fL MCH 27.3 (25-34) pg MCHC 31.9 L (32-36) g/dL RDW Std Deviation 47.9 H (36.4-46.3) fL RDW Coeff of Zeynep 15.4 H (11.5-14.5) % Plt Count 246 (130-400) K/uL MPV 9.5 (7.4-10.4) fL Immature Gran % (Auto) 0.5 % Neut % (Auto) 72.1 % Lymph % (Auto) 18.2 % [place] % (Auto) 8.1 % Eos % (Auto) 0.8 % Baso % (Auto) 0.3 % Neut # (Auto) 5.52 (1.4-6.5) K/uL Lymph # (Auto) 1.39 (1.2-3.4) K/uL [place] # (Auto) 0.62 H (0.11-0.59) K/uL Eos # (Auto) 0.06 (0-0.5) K/uL Baso # (Auto) 0.02 (0-0.2) K/uL Immature Gran # (Auto) 0.04 H (0.00-0.02) K/uL Sodium 139 (136-145) mmol/L Potassium 3.6 (3.5-5.1) mmol/L Chloride 103 (98-107) mmol/L Carbon Dioxide 29 (21-32) mmol/L Anion Gap 7.0 (3-11) BUN 7 (7-18) mg/dl Creatinine 0.70 (0.6-1.2) mg/dl Est Cr Clr Drug Dosing 67.5 ml/min Est GFR ( Amer) 100.3 Est GFR (Non-Af Amer) 86.6 BUN/Creatinine Ratio 10.7 (10-20) Glucose 121 H (70-99) mg/dl Calcium 9.1 (8.5-10.1) mg/dl Total Bilirubin 0.4 (0.2-1) mg/dl AST 14 L (15-37) U/L ALT 21 (12-78) U/L Alkaline Phosphatase 51 (45-117) U/L Total Protein 6.5 (6.4-8.2) gm/dl Albumin 3.5 (3.4-5.0) gm/dl Globulin 3.0 (2.5-4.0) gm/dl Albumin/Globulin Ratio 1.2 (0.9-2) TSH 0.778 (0.300-4.500) uIu/ml COVID-19 Eval Order SARS-CoV-2 (PCR) (Negative) Influenza Type A (PCR) (Neg) Influenza Type B (PCR) (Neg) RSV (RT-PCR) (Neg) Blood Type A Positive Antibody Screen NEGATIVE 10/04/20 10/04/20 Range/Units 14:20 14:20 WBC (4.8-10.8) K/uL RBC (4.2-5.4) M/uL Hgb (12.0-16.0) g/dL Hct (37-47) % MCV (80-100) fL MCH (25-34) pg MCHC (32-36) g/dL RDW Std Deviation (36.4-46.3) fL RDW Coeff of Zeynep (11.5-14.5) % Plt Count (130-400) K/uL MPV (7.4-10.4) fL Immature Gran % (Auto) % Neut % (Auto) % Lymph % (Auto) % [place] % (Auto) % Eos % (Auto) % Baso % (Auto) % Neut # (Auto) (1.4-6.5) K/uL Lymph # (Auto) (1.2-3.4) K/uL [place] # (Auto) (0.11-0.59) K/uL Eos # (Auto) (0-0.5) K/uL Baso # (Auto) (0-0.2) K/uL Immature Gran # (Auto) (0.00-0.02) K/uL Sodium (136-145) mmol/L Potassium (3.5-5.1) mmol/L Chloride (98-107) mmol/L Carbon Dioxide (21-32) mmol/L Anion Gap (3-11) BUN (7-18) mg/dl Creatinine (0.6-1.2) mg/dl Est Cr Clr Drug Dosing ml/min Est GFR ( Amer) Est GFR (Non-Af Amer) BUN/Creatinine Ratio (10-20) Glucose (70-99) mg/dl Calcium (8.5-10.1) mg/dl Total Bilirubin (0.2-1) mg/dl AST (15-37) U/L ALT (12-78) U/L Alkaline Phosphatase (45-117) U/L Total Protein (6.4-8.2) gm/dl Albumin (3.4-5.0) gm/dl Globulin (2.5-4.0) gm/dl Albumin/Globulin Ratio (0.9-2) TSH (0.300-4.500) uIu/ml COVID-19 Eval Order [facility]Rsv at [facility] SARS-CoV-2 (PCR) NEGATIVE (Negative) Influenza Type A (PCR) Negative (Neg) Influenza Type B (PCR) Negative (Neg) RSV (RT-PCR) Negative (Neg) Blood Type Antibody Screen Imaging Data Radiologist's Impression: [facility], [phone] XRay Report Patient: JESSICA VASQUEZ Date: 10/04/20MR#: [id number]: [address] [place], [place] [address]t ID:[id number]: [address]Birth Date: 1945[facility] Zip: [place] [address]Oee: 74Location: EDSex: FRoom/Bed:Att Phy:Diagnosis: FALL,PAINPri Phy: Papo Keyes MDService Date: 10/04/20Fam Phy:Interpreting Phy: James Brown Phy: Ordering Phy: Juan Antonio Nelson MD cc: ~ SINGLE VIEW CHEST CLINICAL HISTORY: Generalized weakness. FINDINGS: An AP, portable, upright chest radiograph is compared to study dated 11/19/2019. The cardiomediastinal silhouette is top normal for projection. There is mild bibasilar atelectasis. The lungs and pleural spaces are otherwise clear. No pneumothorax is seen. The skeletal structures are osteopenic. The bony thorax is grossly intact. Fusion hardware is noted in the lower cervical spine and at the thoracolumbar junction. A right shoulder arthroplasty is in place. IMPRESSION: No active disease in the chest. ACT 112: Negative or not required by law. Electronically signed by: James Staley M.D. 10/04/2020 2:42 PM Dictated: 10/04/20 1441Transcribed: 10/04/20 1441 [facility], [phone] XRay Report Patient: JESSICA VASQUEZ Date: 10/04/20#: [id number]: [address] [facility] ID:[id number]: [address]Birth Date: 1945[facility] Zip: [place] [address]Ttk: 74Location: EDSex: FRoom/Bed:Att Phy:Diagnosis: FALL,PAINPri Phy: Papo Keyes MDService Date: 10/04/20Fa Phy:Interpreting Phy: James Staley MDAdmit Phy: Ordering Phy: Juan Antonio Nelson MD cc: ~ LEFT ANKLE 3 VIEWS CLINICAL HISTORY: Left ankle pain. FINDINGS: 3 views of the left ankle are compared to study dated 10/03/2020. The skeletal structures are osteopenic. No fracture is seen. The ankle mortise is intact. There are large dorsal and plantar calcaneal enthesophytes. No joint effusion is identified. Soft tissue edema overlies the lateral malleolus. There is atherosclerotic calcification of the regional arteries. IMPRESSION: Soft tissue swelling with no fracture identified. Electronically signed by: James Staley M.D. 10/04/2020 2:49 PM Dictated: 10/04/201447Transcribed: 10/04/201447 [facility], [phone] XRay Report Patient: JESSICA VASQUEZ Date: 10/04/20MR#: [id number]: [address] [facility][id number]: [address]Birth Date: 1945[facility] [place] [address]Vld: 74Location: EDSex: FRoom/Bed:Att Phy:Diagnosis: FALL,PAINPri Phy: Papo Keyes MDService Date: 10/04/20Fam Phy:Interpreting Phy: [place] SierraAdmit Phy: Ordering Phy: Juan Antonio Nelson MD cc: ~ XR knee LT 1 or 2V routine HISTORY: 74 years-old Female Pt c/o left knee pain acute left-sided knee pain COMPARISON: Left knee radiographs 10/03/2020 TECHNIQUE: 2 views of the left knee FINDINGS: Left knee total joint arthroplasty and patella resurfacing. Small joint effus ion. No acute fracture, dislocation or hardware complication. Mild ventral soft tissue prominence of the knee. IMPRESSION: No acute fracture or dislocation. ACT 112: Negative or not required by law. The above report was generated using voice recognition software. It may contain grammatical, syntax or spelling errors. Electronically signed by: Bruce Sierra M.D. 10/04/2020 2:47 PM Dictated: 10/04/201445Transcribed: 10/04/201445 ECG Data Attestation: I personally reviewed and interpreted this ECG as follows: Indication: + weakness Rate (beats per minute): 78 Rhythm: + normal sinus ECG Intervals/blocks: + Normal QT-c (483) ECG [place]: + Normal ECG ST segments: no ST depression and no ST elevation Comparison ECG Date: from (11/19/2019) Change: no significant change MDM Narrative Patient was seen and evaluated as above in room . Review was performed of nursing notes and vital signs. I did review pertinent previous visits and patient history. After obtaining a thorough history and physical examination the above work up was performed. This is a 74-year-old female who presents emergency department complaining of weakness. The patient had an abnormal MRI several days ago and since then has fallen at least twice. I did discuss the case with the spine surgeon who was kind enough to have the patient admitted. Patient's knee and ankle reimaged. She was given Dilaudid here for her pain. An order was placed for continuous cardiac monitoring. The monitor shows a rate of 90 with Normal SInus rhythm. The patient was evaluated during a period of high volume and high acuity while the hospital was at overcapacity during the global COVID-19 pandemic, and that diagnosis was suspected/considered upon their initial presentation. Their e valuation, treatment and testing was consistent with current guidelines for patients who present with complaints or symptoms that may be related to COVID- 19. Impression & Plan Acute exacerbation of chronic low back pain, Myelopathy concurrent with and due to spinal stenosis of thoracic region, Left ankle sprain, Left knee sprain Discharge Plan Visit Data Chief Complaint: Fall Stated Complaint: Fell in bathroom this AM. ED Provider: Juan Antonio Nelson Discharge Problem: Acute exacerbation of chronic low back pain, Myelopathy concurrent with and due to spinal stenosis of thoracic region, Left ankle sprain, Left knee sprain Patient Disposition: Admitted As Inpatient Discharge Instructions Interventions: ED Discharge Assessment Last Done: 10/04/20 16:46 Discharge Problem: Left ankle sprain Qualifiers: Encounter type: initial encounter Involved ligament of ankle: unspecified ligament Qualified Code(s): S93.402A - Sprain of unspecified ligament of left ankle, initial encounter Left knee sprain Qualifiers: Encounter type: initial encounter Involved ligament of knee: unspecified ligament Qualified Code(s): S83.92XA - Sprain of unspecified site of left knee, initial encounter
[2020-10-04 14:30] LABS: Basophils # (auto) 0.02 K/uL (0-0.2); Basophils % (auto) 0.3 %; Eosinophils # (auto) 0.06 K/uL (0-0.5); Eosinophils % (auto) 0.8 %; Hemoglobin 11.5 g/dL (12.0-16.0); Immature Granulocytes # (auto) 0.04 K/uL (0.00-0.02); Immature Granulocytes % (auto) 0.5 %; Lymphocytes # (auto) 1.39 K/uL (1.2-3.4); Lymphocytes % (auto) 18.2 %; Mean Corpuscular Hemoglobin 27.3 pg (25-34); Mean Corpuscular Hgb Conc 31.9 g/dL (32-36); Mean Corpuscular Volume 85.3 fL (80-100); Mean Platelet Volume 9.5 fL (7.4-10.4); Monocytes # (auto) 0.62 K/uL (0.11-0.59); Monocytes % (auto) 8.1 %; Neutrophils # (auto) 5.52 K/uL (1.4-6.5); Neutrophils % (auto) 72.1 %; Platelet Count 246 K/uL (130-400); RDW Coefficient of Variation 15.4 % (11.5-14.5); RDW Standard Deviation 47.9 fL (36.4-46.3); Red Blood Count 4.22 M/uL (4.2-5.4); White Blood Count 7.65 K/uL (4.8-10.8)
--- NOTE | 2020-10-04 14:43 | XRay Report ---
SINGLE VIEW CHEST CLINICAL HISTORY: Generalized weakness. FINDINGS: An AP, portable, upright chest radiograph is compared to study dated 11/19/2019. The cardiome diastinal silhouette is top normal for projection. There is mild bibasilar atelectasis. The lungs and pleural spaces are otherwise clear. No pneumothorax is seen. The skeletal structures are osteopenic. The bony thorax is grossly intact. Fusion hardware is noted in the lower cervical spine and at the t horacolumbar junction. A right shoulder arthroplasty is in place. IMPRESSION: No active disease in the chest. ACT 112: Negative or not required by law. Electronically signed by: James Staley M.D. 10/04/2020 2:42 PM
[2020-10-04 14:46] LABS: Albumin Level 3.5 gm/dl (3.4-5.0); BUN Creatinine Ratio 10.7 (10-20); Calcium 9.1 mg/dl (8.5-10.1); Creatinine Clr Calc Pharmacy 67.5 ml/min; Est GFR (African American) 100.3; Est GFR (Non-African American) 86.6; Potassium 3.6 mmol/L (3.5-5.1)
--- NOTE | 2020-10-04 14:48 | XRay Report ---
XR knee LT 1 or 2V routine HISTORY: 74 years-old Female Pt c/o left knee pain acute left-sided knee pain COMPARISON: Left knee radiographs 10/03/2020 TECHNIQUE: 2 views of the left knee FINDINGS: Left knee total joint arthroplasty and patella resurfacing. Small joint effusion. No acute fracture, dislocation or hardware complication. Mild ventral soft tissue prominence of the knee. IMPRESSION: No acute fracture or dislocation. ACT 112: Negative or not required by law. The above report was generated using voice recognition software. It may contain grammatical, syntax o r spelling errors. Electronically signed by: Bruce Sierra M.D. 10/04/2020 2:47 PM
--- NOTE | 2020-10-04 14:51 | XRay Report ---
LEFT ANKLE 3 VIEWS CLINICAL HISTORY: Left ankle pain. FINDINGS: 3 views of the left ankle are compared to study dated 10/03/2020. The skeletal structures a re osteopenic. No fracture is seen. The ankle mortise is intact. There are large dorsal and plantar c alcaneal enthesophytes. No joint effusion is identified. Soft tissue edema overlies the lateral malle olus. There is atherosclerotic calcification of the regional arteries. IMPRESSION: Soft tissue swelling with no fracture identified. Electronically signed by: James Staley M.D. 10/04/2020 2:49 PM
--- NOTE | 2020-10-04 14:56 | History & Physical Report ---
Date of Service October 04, 2020 Assessment & Plan (1) Myelopathy concurrent with and due to spinal stenosis of thoracic region: Admission and Anticipated Discharge Date Admission Date: decompression fusion T9 T11 History of Present Illness Chief Complaint: Bilateral leg weakness Primary Care Provider: Papo Keyes MD 74 year old with worsening leg function past several weeks now unable to ambulate Allergies Allergy/AdvReac Type Severity Reaction Status Date / Time miconazole Allergy Intermediate SEVERE Verified 10/03/20 20:42 BURNING ITCHING morphine Allergy Mild ITCHING Verified 10/03/20 20:42 erythromycin base Allergy Unknown Verified 10/03/20 20:42 codeine AdvReac Mild DYSPEPSIA Verified 10/03/20 20:42 doxycycline AdvReac Mild GASTRITIS Verified 10/03/20 20:42 Macrolide Antibiotics AdvReac Mild DYSPEPSIA Verified 10/03/20 20:42 (TOLERATED Z-PACK) Home Medications Medication Instructions Recorded Confirmed Type Caltrate + D3 Plus Minerals 1 tab PO BID 02/13/19 10/03/20 History Multivitamin 50 Plus 1 tab PO QAM 02/13/19 10/03/20 History Refresh Liquigel 2 drp OPHTHALMIC (EYE) BID PRN 02/13/19 10/03/20 History acetaminophen [Tylenol Arthritis 2 tab PO Q8H PRN 02/13/19 10/03/20 History Pain] albuterol sulfate 2 inh INHALATION Q4H PRN 02/13/19 10/03/20 History aspirin [Aspir-81] 81 mg PO QAM 02/13/19 10/03/20 History budesonide-formoterol [Symbicort] 2 puff INHALATION BID 02/13/19 10/03/20 History bupropion HCl [Wellbutrin SR] 100 mg PO BID 02/13/19 10/03/20 History celecoxib [Celebrex] 200 mg PO QAM 02/13/19 10/03/20 History cholecalciferol (vitamin D3) 1,000 unit PO QAM 02/13/19 10/03/20 History [Vitamin D3] coQ10 (ubiquinol) 100 mg PO BID 02/13/19 10/03/20 History cyclobenzaprine 5 mg PO Q6H PRN 02/13/19 10/03/20 History donepezil [Aricept] 10 mg PO HS 02/13/19 10/03/20 History duloxetine [Cymbalta] 30 mg PO QPM 02/13/19 10/03/20 History duloxetine [Cymbalta] 60 mg PO QAM 02/13/19 10/03/20 History esomeprazole magnesium [Nexium] 40 mg PO QAM 02/13/19 10/03/20 History ezetimibe-simvastatin [Vytorin 1 tab PO HS 02/13/19 10/03/20 History 10-20] fluticasone propionate [Flonase 2 spray INTRANASAL HS 02/13/19 10/03/20 History Allergy Relief] folic acid 0.8 mg PO QAM 02/13/19 10/03/20 History lamotrigine [Lamictal] 150 mg PO HS 02/13/19 10/03/20 History levothyroxine 100 mcg PO QAM 02/13/19 10/03/20 History memantine [Namenda XR] 14 mg PO QAM 02/13/19 10/03/20 History metformin 1,000 mg PO BID 02/13/19 10/03/20 History montelukast [Singulair] 10 mg PO HS 02/13/19 10/03/20 History omega 2-pfd-uim-fish oil [Fish Oil] 1 cap PO BID 02/13/19 10/03/20 History oxycodone 7.5 mg PO Q6H PRN 02/13/19 10/03/20 History phenylephrine HCl [Sudafed PE] 10 mg PO Q4H PRN 02/13/19 10/03/20 History vitamin E 400 unit PO HS 02/13/19 10/03/20 History trazodone 50 mg tablet 25 mg PO HS tab 11/13/19 10/03/20 History chlorpheniramine 4 1 tab PO Q4H PRN 11/26/19 10/03/20 History mg-phenylephrine 10 mg tablet famotidine 40 mg tablet 40 mg PO BID 04/12/20 10/03/20 History furosemide 40 mg tablet 40 mg PO DAILY #90 tab 07/14/20 10/03/20 Rx magnesium oxide 400 mg PO .COMPLEX #30 cap 07/14/20 10/03/20 Rx lisinopril 40 mg PO DAILY 10/03/20 10/03/20 History Past Med/Surg History Medical History (Updated 10/04/20 @ 14:55 by Hu Pantoja DO) Anemia Anxiety Asthma STABLE Cyclothymic disorder MOOD DISORDER Depression Diabetes mellitus, type 2 NIDDM Dry eye syndrome Dyspepsia CHRONIC FELT D/T MEDICATION INTERACTIONS (POLYPHARMACY) Fibromyalgia GERD (gastroesophageal reflux disease) OCCASIONAL History of blood transfusion REMOTE POST-OP Hyperlipidemia Hypertension Hypothyroidism Kidney stones Migraine 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 Osteoarthritis Peripheral neuropathy B/L UE/LE Sleep apnea BIPAP Spinal stenosis Ventral hernia Surgical History (Updated 08/02/20 @ 11:16 by Chelita Haley) Fusion of spine LUMBAR X2 H/O foot surgery RIGHT HAMMERTOE AND BUNION REPAIR H/O: hysterectomy + ANTERIOR/POSTERIOR REPAIR History of bladder surgery SUSPENSION History of cataract surgery RIGHT/LEFT History of section History of cholecystectomy History of colonoscopy History of esophagogastroduodenoscopy (EGD) History of shoulder surgery RIGHT SHOULDER History of surgery perianal fistula History of tonsillectomy Adenoidectomy History of tooth extraction History of total knee replacement RIGHT/LEFT History of vaginal hysterectomy Family History (Updated 08/02/20 @ 11:18 by Chelita Haley) Mother Family history of diabetes mellitus COPD (chronic obstructive pulmonary disease) Diabetes Hypertension Brother Family history of diabetes mellitus Diabetes Renal failure Sister Family history of diabetes mellitus Malignant melanoma Uncle Family hx of colon cancer Colorectal cancer Paternal Aunt Breast cancer Maternal Ovarian cancer Paternal Social History Smoking Status: Never smoker Second Hand Exposure: No; Hx Alcohol Use: No Hx Substance Use: No Preferred Language: Korean Communication Ability: Effective Visual Impairment: Limited Hearing Ability: Hard of Hearing Scabbler Required: No Beliefs That Will Affect Care: None Current Living Situation: Spouse Feels Safe at Home: Yes Assistive Devices: Glasses and Walker Physical Exam Physical Exam: unable to stand, brisk reflexes and sustained ankle clonus Results & Data ([facility]) Vital Signs (Past 12 Hours) Vital Signs Temp Pulse Resp BP Pulse Ox 10/04/20 14:11 82 18 149/69 H 99 10/04/20 13:33 80 21 100 10/04/20 13:31 78 20 128/78 95 10/04/20 12:30 36.8 C 88 18 167/85 H 98
[2020-10-04 14:57] LABS: Albumin Globulin Ratio 1.2 (0.9-2); Bilirubin,Total 0.4 mg/dl (0.2-1); Thyroid Stimulating Hormone 0.778 uIu/ml (0.300-4.500); Total Protein 6.5 gm/dl (6.4-8.2)
[2020-10-04 15:17] LABS: Influenza A virus by PCR Negative (Neg); Influenza B virus by PCR Negative (Neg); RSV by PCR Negative (Neg); SARS CoV2 RNA(COVID-19) InHosp NEGATIVE (Negative)
[2020-10-04] MEDS ORDERED: ONDANSETRON INJ 2 MG/ML 2 ML VIAL IV PRN (17:36)
[2020-10-04] MEDS ORDERED: LORazepam 1 MG TAB PO PRN (17:36)
[2020-10-04] MEDS ORDERED: ONDANSETRON 4 MG OD TAB PO PRN (17:36)
[2020-10-04] MEDS ORDERED: PROMETHAZINE HCL 12.5 MG in SODIUM CHLORIDE 0.9% 50 ML IV PRN (17:36)
[2020-10-04] MEDS ORDERED: LORazepam 1 MG/2 ML VIAL IV PRN (17:36)
[2020-10-04] MEDS ORDERED: HYDROmorphone INJ 0.5 MG/0.5 ML SYR IV PRN (17:36)
[2020-10-04] MEDS ORDERED: METOCLOPRAMIDE HCL INJ 5 MG/ML 2 ML VIAL IV PRN (17:36)
[2020-10-04] MEDS ORDERED: PHARMACY GLYCEMIC MGMT CONSULT PRN (17:53)
[2020-10-04] MEDS ORDERED: DEXTROSE 50% 50 ML SYRINGE IV PRN (18:00)
[2020-10-04] MEDS ORDERED: GLUCOSE 10 TABS/TUBE PO PRN (18:00)
[2020-10-04] MEDS ORDERED: GLUCOSE 40% GEL 15 GM TUBE PO PRN (18:00)
[2020-10-04] MEDS ORDERED: CARBOHYDRATES FOR HYPOGLYCEMIA PO PRN (18:00)
[2020-10-04] MEDS ORDERED: GLUCAGON FOR INJ 1 MG VIAL IM PRN (18:00)
[2020-10-04] MEDS: LACTATED RINGER'S 1,000 ML IV SCH (18:01)
[2020-10-04 18:04] LABS: Basophils # (auto) 0.02 K/uL (0-0.2); Basophils % (auto) 0.3 %; Eosinophils # (auto) 0.06 K/uL (0-0.5); Eosinophils % (auto) 0.9 %; Hematocrit (blood only) 34.4 % (37-47); Hemoglobin 10.9 g/dL (12.0-16.0); Immature Granulocytes # (auto) 0.04 K/uL (0.00-0.02); Immature Granulocytes % (auto) 0.6 %; Lymphocytes # (auto) 1.76 K/uL (1.2-3.4); Mean Corpuscular Hgb Conc 31.7 g/dL (32-36); Mean Corpuscular Volume 85.4 fL (80-100); Mean Platelet Volume 8.9 fL (7.4-10.4); Monocytes # (auto) 0.73 K/uL (0.11-0.59); Monocytes % (auto) 11.2 %; Neutrophils # (auto) 3.91 K/uL (1.4-6.5); Platelet Count 215 K/uL (130-400); RDW Coefficient of Variation 15.5 % (11.5-14.5); RDW Standard Deviation 48.5 fL (36.4-46.3); Red Blood Count 4.03 M/uL (4.2-5.4); White Blood Count 6.52 K/uL (4.8-10.8)
--- NOTE | 2020-10-04 18:26 | Consultation ---
Date of Consultation October 04, 2020 Assessment & Plan (1) Myelopathy concurrent with and due to spinal stenosis of thoracic region: This is a 74-year-old female who has significant past medical history of T2DM, HTN, HLD, asthma, HUNTER, hypothyroidism, depression who presents to ED secondary to worsening lower extremity weakness and fall prior to arrival. Of significance patient has been following with Dr. Pantoja secondary to chronic low back pain with radiation to bilateral lower extremities. MRI Thoracic spine: Interval development of diffuse disc bulge with superimposed large central disc extrusion at T9-T10 with superior subligamentous migration. These findings result in severe narrowing of the central canal with suspected cord compression and mild cord edema. Pt CXR and EKG reviewed. Last echocardiogram 11/2019 EF 58%, grade 1 diastolic dysfunction, mild aortic valve sclerosis. Pt denies active chest pain or SOB. Okay to proceed to surgery. Post op recommendations as per Dr. Pantoja pain/wound management per Dr. Pantoja encourage incentive spirometry monitor h/h activity and therapy as per Dr. Pantoja (2) Diabetes mellitus, type II: last a1c 6.5 02/2019 hold metformin glycemic pharmacy consulted - appreciate their input obtain a1c in a.m. (3) Hypertension: BP stable continue lisinopril hold lasix until volume status re assessed post op (4) Dyslipidemia: continue statin-zetia (5) Hypothyroidism: continue levothyroxine (6) Asthma: continue symbicort no acute exac (7) Sleep apnea: pt Bipap settings 08/19; however currently refusing reassess daily (8) DVT prophylaxis: SCD/TEDS, per primary Follow up: PCP Dr. Keyes upon discharge Pt was seen and examined in collaboration with Dr. Holder, please see addendum Thank you for this consultation. We will follow the patient with you during their hospital stay. You can reach a member of the [facility] Hospitalist Team 07/05 via pager @ [phone]. Supervising Physician Co-Signing Physician Notes Pt was seen and examined. Agreed with Lauren COLON exam, assessment ad plan. 74-year-old female with past medical history of T2DM, HTN, HLD, asthma, HUNTER, hypothyroidism, depression presented to worsening lower extremity weakness and fall. Pt said that she fell on Sunday and this morning. Pt said that her legs feel weak. She said that she is having pain in her knee and her back. MRI Thoracic spine showed interval development of diffuse disc bulge with superimposed large central disc extrusion at T9-T10 with superior subligamentous migration. These findings result in severe narrowing of the central canal with suspected cord compression and mild cord edema. Pt denies any history of chest pain, palpitation and SOB. CXR showed no active disease in the chest. Her last echocardiogram 11/2019 EF 58%, grade 1 diastolic dysfunction, mild aortic valve sclerosis. Pt understood the surgical risks such as bleeding, infection, heart attack and . No additional preop work up needing. Okay to proceed with the surgery. MD Gallo History of Present Illness Requesting Physician: Dr. Pantoja Reason for Consultation: Preop and postop med management Attending Physician: Hu Pantoja DO History of Present Illness This is a 74-year-old female who has significant past medical history of T2DM, HTN, HLD, asthma, HUNTER, hypothyroidism, depression who presents to ED secondary to worsening lower extremity weakness and fall prior to arrival. Of significance patient has been following with Dr. Pantoja secondary to chronic low back pain with radiation to bilateral lower extremities. She underwent MRI of the thoracic spine on 09/27 which revealed interval development of a diffuse disc bulge with superimposed large central disc extrusion at T9-T10 with superior subligamentous migration. These findings result in severe narrowing of the central canal with suspected cord compression and mild cord edema. She was seen in the ER last evening secondary to accidental fall. She underwent knee and ankle x-ray which were unremarkable. She was discharged to home. She has been in contact with Dr. Pantoja and return to ER today at his recommendation secondary to mechanical fall while in bathroom. Plan is to undergo urgent surgical procedure secondary to above findings. She states she has been dealing with chronic back pain for several years which has severely limited her mobility. She uses a wheelchair as well as a walker. She denies any fever, chills, sweats, lightheadedness, dizziness, syncope, chest pain, shortness of breath, palpitations, nausea, vomiting, abdominal pain, diarrhea, dysuria, increased urgency or frequency with urination, melena, medic easier. She does complain of occasional incontinence with urine. She also admits to saddle anesthesia. She has chronic mid low back pain with radiation down bilateral lower extremities anterior and posteriorly as well as numbness and tingling. She does have diagnosis of T2DM currently controlled on Metformin. Last A1c was greater than 1 year ago was 5.9. Her last echocardiogram 12/03/2019 revealed EF 50%, grade 1 diastolic dysfunction, trileaflet aortic valve, moderate aortic valve sclerosis. Allergies Allergy/AdvReac Type Severity Reaction Status Date / Time miconazole Allergy Intermediate SEVERE Verified 10/03/20 20:42 BURNING ITCHING morphine Allergy Mild ITCHING Verified 10/03/20 20:42 erythromycin base Allergy Unknown Verified 10/03/20 20:42 codeine AdvReac Mild DYSPEPSIA Verified 10/03/20 20:42 doxycycline AdvReac Mild GASTRITIS Verified 10/03/20 20:42 Macrolide Antibiotics AdvReac Mild DYSPEPSIA Verified 10/03/20 20:42 (TOLERATED Z-PACK) Home Medications Medication Instructions Recorded Confirmed Type Caltrate + D3 Plus Minerals 1 tab PO BID 02/13/19 10/04/20 History Multivitamin 50 Plus 1 tab PO QAM 02/13/19 10/04/20 History Refresh Liquigel 2 drp OPHTHALMIC (EYE) BID PRN 02/13/19 10/04/20 History acetaminophen [Tylenol Arthritis 2 tab PO Q8H PRN 02/13/19 10/04/20 History Pain] albuterol sulfate 2 inh INHALATION Q4H PRN 02/13/19 10/04/20 History aspirin [Aspir-81] 81 mg PO QAM 02/13/19 10/04/20 History budesonide-formoterol [Symbicort] 2 puff INHALATION BID 02/13/19 10/04/20 History bupropion HCl [Wellbutrin SR] 100 mg PO BID 02/13/19 10/04/20 History celecoxib [Celebrex] 200 mg PO QAM 02/13/19 10/04/20 History cholecalciferol (vitamin D3) 1,000 unit PO QAM 02/13/19 10/04/20 History [Vitamin D3] coQ10 (ubiquinol) 100 mg PO BID 02/13/19 10/04/20 History cyclobenzaprine 5 mg PO Q6H PRN 02/13/19 10/04/20 History donepezil [Aricept] 10 mg PO HS 02/13/19 10/04/20 History duloxetine [Cymbalta] 30 mg PO QPM 02/13/19 10/04/20 History duloxetine [Cymbalta] 60 mg PO QAM 02/13/19 10/04/20 History esomeprazole magnesium [Nexium] 40 mg PO QAM 02/13/19 10/04/20 History ezetimibe-simvastatin [Vytorin 1 tab PO HS 02/13/19 10/04/20 History 10-20] fluticasone propionate [Flonase 2 spray INTRANASAL HS 02/13/19 10/04/20 History Allergy Relief] folic acid 0.8 mg PO QAM 02/13/19 10/04/20 History lamotrigine [Lamictal] 150 mg PO HS 02/13/19 10/04/20 History levothyroxine 100 mcg PO QAM 02/13/19 10/04/20 History memantine [Namenda XR] 14 mg PO QAM 02/13/19 10/04/20 History metformin 1,000 mg PO BID 02/13/19 10/04/20 History montelukast [Singulair] 10 mg PO HS 02/13/19 10/04/20 History omega 8-owc-nir-fish oil [Fish Oil] 1 cap PO BID 02/13/19 10/04/20 History oxycodone 7.5 mg PO Q6H PRN 02/13/19 10/04/20 History phenylephrine HCl [Sudafed PE] 10 mg PO Q4H PRN 02/13/19 10/04/20 History vitamin E 400 unit PO HS 02/13/19 10/04/20 History trazodone 50 mg tablet 25 mg PO HS tab 11/13/19 10/04/20 History chlorpheniramine 4 1 tab PO Q4H PRN 11/26/19 10/04/20 History mg-phenylephrine 10 mg tablet famotidine 40 mg tablet 40 mg PO BID 04/12/20 10/04/20 History furosemide 40 mg tablet 40 mg PO DAILY #90 tab 07/14/20 10/04/20 Rx magnesium oxide 400 mg PO .COMPLEX #30 cap 07/14/20 10/04/20 Rx lisinopril 40 mg PO DAILY 10/03/20 10/04/20 History Patient History Medical History Anemia Anxiety Asthma STABLE Cyclothymic disorder MOOD DISORDER Depression Diabetes mellitus, type 2 NIDDM Dry eye syndrome Dyspepsia CHRONIC FELT D/T MEDICATION INTERACTIONS (POLYPHARMACY) Fibromyalgia GERD (gastroesophageal reflux disease) OCCASIONAL History of blood transfusion REMOTE POST-OP Hyperlipidemia Hypertension Hypothyroidism Kidney stones Migraine 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 Osteoarthritis Peripheral neuropathy B/L UE/LE Sleep apnea BIPAP Spinal stenosis Ventral hernia Surgical History Fusion of spine LUMBAR X2 H/O foot surgery RIGHT HAMMERTOE AND BUNION REPAIR H/O: hysterectomy + ANTERIOR/POSTERIOR REPAIR History of bladder surgery SUSPENSION History of cataract surgery RIGHT/LEFT History of section History of cholecystectomy History of colonoscopy History of esophagogastroduodenoscopy (EGD) History of shoulder surgery RIGHT SHOULDER History of surgery perianal fistula History of tonsillectomy Adenoidectomy History of tooth extraction History of total knee replacement RIGHT/LEFT History of vaginal hysterectomy Family History Mother Family history of diabetes mellitus COPD (chronic obstructive pulmonary disease) Diabetes Hypertension Brother Family history of diabetes mellitus Diabetes Renal failure Sister Family history of diabetes mellitus Malignant melanoma Uncle Family hx of colon cancer Colorectal cancer Paternal Aunt Breast cancer Maternal Ovarian cancer Paternal Social History Smoking Status: Never smoker Second Hand Exposure: No; Hx Alcohol Use: No Hx Substance Use: No Preferred Language: Polish Communication Ability: Effective Visual Impairment: Limited Hearing Ability: Hard of Hearing Software Tools Developer Required: No Beliefs That Will Affect Care: None Current Living Situation: Spouse Feels Safe at Home: Yes Safety Concerns: Feels Safe At This Time Assistive Devices: Glasses, Hearing Aid - Bilateral and Walker Assistive Devices Comment: Personal devices not at hospital at this time Review of Systems Review of Systems: All systems reviewed & are unremarkable except as noted in HPI & below Physical Exam Physical Exam: Constitutional: WD/WN, F, vitals as above, NAD, sitting up in bed, pleasant, conversing easily Head: Normocephalic, Atraumatic Eyes: PERRL, conjunctivae normal, anicteric sclerae ENMT: external ear and nose normal, oropharynx normal Neck: trachea midline, no thyromegaly normal visual inspection Respiratory: normal respiratory effort, lungs clear to auscultation, no wheeze, rales, rhonchi. Normal insp/exp effort, no accessory muscle use Cardiovascular: RRR, 1/6 TRUPTI, no edema Vessels: no JVD or carotid bruit Chest: normal inspection of chest Abdomen: normal bowel sounds, soft, nontender, no hepatosplenomegaly Musculoskeletal: no cyanosis or clubbing, AROM x 4, decreased ROM to b/l lower ext, strength b/l lower ext 3/5, poor dorsiflexion b/l feet r > L, + babinski L Skin: no rashes, warm and dry normal turgor Neurologic: PERRL, EOMI, accommodation nl, no face palsy, no dysarthria CN's II-XI intact bilaterally and moves all extremities Psychiatric: A+Ox3, euthymic affect Lymphatic: no cervical or axillary lymphadenopathy : deferred Results & Data ([facility]) Vital Signs (Past 12 Hours) Vital Signs Temp Pulse Pulse Resp BP BP Pulse Ox 10/04/20 17:15 36.4 C L 81 18 138/83 97 10/04/20 16:31 158/74 H 92 10/04/20 16:00 134/79 99 10/04/20 15:30 151/87 H 97 10/04/20 15:00 76 19 152/88 H 98 10/04/20 14:30 81 14 171/98 H 98 10/04/20 14:11 82 18 149/69 H 99 10/04/20 13:33 80 21 100 10/04/20 13:31 78 20 128/78 95 10/04/20 12:30 36.8 C 88 18 167/85 H 98 Laboratory Results Short CBC 10/04/20 10/04/20 10/04/20 Range/Units 14:05 14:05 17:57 WBC 7.65 6.52 (4.8-10.8) K/uL Hgb 11.5 L 10.9 L (12.0-16.0) g/dL Hct 36.0 L 34.4 L (37-47) % Plt Count 246 215 (130-400) K/uL Creatinine 0.70 (0.6-1.2) mg/dl Est Cr Clr Drug Dosing 67.5 ml/min Est GFR (Non-Af Amer) 86.6 BMP 10/04/20 14:05 Sodium 139 Potassium 3.6 Chloride 103 Carbon Dioxide 29 BUN 7 Creatinine 0.70 Glucose 121 H Calcium 9.1 Liver Function 10/04/20 Range/Units 14:05 Total Bilirubin 0.4 (0.2-1) mg/dl AST 14 L (15-37) U/L ALT 21 (12-78) U/L Alkaline Phosphatase 51 (45-117) U/L Albumin 3.5 (3.4-5.0) gm/dl Diagnostic Findings CXR: IMPRESSION: No active disease in the chest. Knee Xray: IMPRESSION: Soft tissue swelling with no fracture identified. Ankle Xray: IMPRESSION: Soft tissue swelling with no fracture identified. Medications Administered Lactated Ringer's (Lr) 1,000 mls @ 15 mls/hr IV .Q24H SARAI Stop: 11/03/20 17:35 Last Admin: 10/04/20 18:01 Dose: 15 mls/hr Documented by: [id number] Discontinued Medications Diphenhydramine HCl (Diphenhydramine 50 Mg/Ml Vial) 25 mg IV NOW STA Stop: 10/04/20 13:35 Last Admin: 10/04/20 14:07 Dose: 25 mg Documented by: [id number] Acetaminophen (irmev) 1,000 mg in 100 mls @ 400 mls/hr IV NOW STA Stop: 10/04/20 13:48 Last Infusion: 10/04/20 14:27 Dose: 0 mls/hr Documented by: [id number] Admin: 10/04/20 14:09 Dose: 400 mls/hr Documented by: [id number] Morphine Sulfate (Morphine Sulfate 4 Mg/Ml 1 Ml Carp\Vial) 4 mg IV NOW STA Stop: 10/04/20 13:35 Last Admin: 10/04/20 14:08 Dose: 4 mg Documented by: [id number] ECG Rate (beats per minute): 78 Rhythm: normal sinus Findings: + prolonged QT (qtc 483ms)
[2020-10-04 18:32] LABS: Albumin Level 3.2 gm/dl (3.4-5.0); BUN Creatinine Ratio 12.7 (10-20); Creatinine Clr Calc Pharmacy 76.3 ml/min; Est GFR (African American) 104.4; Est GFR (Non-African American) 90.1; Potassium 3.6 mmol/L (3.5-5.1)
[2020-10-04 18:35] LABS: Albumin Globulin Ratio 1.1 (0.9-2); Bilirubin,Total 0.4 mg/dl (0.2-1); Globulin 2.8 gm/dl (2.5-4.0)
[2020-10-04] MEDS: INSULIN ASPART 100 UNITS/ML 3 ML PEN SC SCH ×2 (18:58→21:46)
--- NOTE | 2020-10-04 19:26 | Pharmacy Report ---
Pharmacy Glycemic Short Note 2 - Date of Service October 04, 2020 - Glycemic Short BSG Results (Last 24 hours): 10/04/20 10/04/20 10/04/20 14:05 17:33 17:57 Glucose 121 H 96 POC Glucose 95 OUTPATIENT ANTIDIABETIC REGIMEN: * Metformin 1 g PO BIDM * HbA1c ordered for tomorrow morning ASSESSMENT: * RAND is a 74 year old female presented to ED on 10/04 with worsening lower extremity weakness and fall prior to arrival. * Patient to have T9-T11 decompression fusion tomorrow (10/05) * NPO after midnight * BSGs of 121 and 95 mg/dL so far today * Will use Novolog for now and hold basal this evening PLAN FOR INPATIENT GLYCEMIC CONTROL: * Hold outpatient oral diabetes medications * Basal insulin * Lantus hold * Reassess in AM * Bolus insulin * NovoLog per scale ACHS or Q6hrs while NPO * Goal Range: Low 110 mg/dL - High 140 mg/dL * Correction Factor: 35 mg/dL/unit * Nutritional / Prandial insulin per carb ratio of 1 unit per 12 grams CHO consumed
[2020-10-04] MEDS: DONEPEZIL HCL 10 MG TAB PO SCH (20:41)
[2020-10-04] MEDS: EZETIMIBE/SIMVASTATIN 10/20 TAB PO SCH (20:41)
[2020-10-04] MEDS: DULoxetine HCL 30 MG CAP PO SCH (20:41)
[2020-10-04] MEDS: oxyCODONE HCL IR 5 MG TAB (IMMEDIATE RELEASE) PO PRN (20:41)
[2020-10-04] MEDS: DOCUSATE SODIUM 100 MG CAP PO SCH (20:41)
[2020-10-04] MEDS: buPROPion SR 100 MG TABCR PO SCH (20:42)
[2020-10-04] MEDS: traZODone HCL 50 MG TAB PO SCH (20:42)
[2020-10-04] MEDS: MONTELUKAST SODIUM 10 MG TABLET PO SCH (20:42)
[2020-10-04] MEDS ORDERED: INSULIN GLARGINE SOLOSTAR 100 UNITS/ML 3 ML PEN SC ONE ×2 (21:00)
[2020-10-04 22:53] LABS: Appearance Urine Clear (Clear); Bilirubin Urine Negative (Negative); Blood Urine Negative (Negative); Color Urine Yellow; Glucose Urine UA Negative (Negative); Ketones Urine Negative (Negative); Leukocyte Esterase Urine Negative (Negative); Nitrite Urine Negative (Negative); Protein Urine Negative (Negative); Specific Gravity Urine 1.015 (1.000-1.030); Urobilinogen Urine Negative (Negative); pH Urine 5.5 (4.5-7.5)
[2020-10-05] MEDS ORDERED: Nursing to Pharmacy Communication SCH ×2 (00:30→19:15)
[2020-10-05] MEDS: HYDROmorphone INJ 0.5 MG/0.5 ML SYR IV PRN ×2 (04:44→08:20)
[2020-10-05] MEDS ORDERED: ceFAZolin 2000MG 2,000 MG/15 ML SYR IV SCH (06:00)
[2020-10-05] MEDS: INSULIN ASPART 100 UNITS/ML 3 ML PEN SC SCH ×4 (06:06→20:50)
[2020-10-05] MEDS: LEVOTHYROXINE SODIUM 100 MCG TABLET PO SCH (06:21)
[2020-10-05 06:49] LABS: Hematocrit (blood only) 34.5 % (37-47); Hemoglobin 10.9 g/dL (12.0-16.0); Mean Corpuscular Hgb Conc 31.6 g/dL (32-36); Mean Corpuscular Volume 85.4 fL (80-100); Mean Platelet Volume 9.1 fL (7.4-10.4); Platelet Count 221 K/uL (130-400); RDW Coefficient of Variation 15.5 % (11.5-14.5); RDW Standard Deviation 48.2 fL (36.4-46.3); Red Blood Count 4.04 M/uL (4.2-5.4); White Blood Count 5.36 K/uL (4.8-10.8)
[2020-10-05 07:22] LABS: BUN Creatinine Ratio 13.5 (10-20); Calcium 8.5 mg/dl (8.5-10.1); Creatinine Clr Calc Pharmacy 68.5 ml/min; Est GFR (African American) 100.8; Potassium 3.5 mmol/L (3.5-5.1)
[2020-10-05 07:44] LABS: Estimated Average Glucose 134 mg/dl; Hemoglobin A1C 6.3 % (4.5-5.6)
[2020-10-05] MEDS: ASPIRIN 81 MG ECTAB PO SCH (08:16)
[2020-10-05] MEDS: DOCUSATE SODIUM 100 MG CAP PO SCH ×2 (08:16→20:17)
[2020-10-05] MEDS: FLUTICASONE/VILANTEROL 200/25MCG 14 PUFFS/INHALER INH SCH (08:19)
[2020-10-05] MEDS: DULoxetine HCL 60 MG CAP PO SCH (08:19)
[2020-10-05] MEDS: buPROPion SR 100 MG TABCR PO SCH ×2 (08:20→20:18)
--- NOTE | 2020-10-05 09:13 | Hospitalist Progress Note ---
Date of Service October 05, 2020 Assessment & Plan (1) Myelopathy concurrent with and due to spinal stenosis of thoracic region: This is a 74-year-old female who has significant past medical history of T2DM, HTN, HLD, asthma, HUNTER, hypothyroidism, depression who presents to ED secondary to worsening lower extremity weakness and fall prior to arrival. Of significance patient has been following with Dr. Pantoja secondary to chronic low back pain with radiation to bilateral lower extremities. MRI Thoracic spine: Interval development of diffuse disc bulge with superimposed large central disc extrusion at T9-T10 with superior subligamentous migration. These findings result in severe narrowing of the central canal with suspected cord compression and mild cord edema. Pt CXR and EKG reviewed. Last echocardiogram 11/2019 EF 58%, grade 1 diastolic dysfunction, mild aortic valve sclerosis. Pt denies active chest pain or SOB. Okay to proceed to surgery. Post op recommendations as per Dr. Pantoja pain/wound management per Dr. Pantoja encourage incentive spirometry monitor h/h activity and therapy as per Dr. Pantoja Pt requesting oral diflucan post op x 3 days due to hx of yeast vaginitis with any antibiotics (2) Diabetes mellitus, type II: A1C 6.3 today currently NPO, bsg 120 hold metformin glycemic pharmacy consulted - appreciate their input (3) Hypertension: BP stable lisinopril and lasix on hold pre operatively BP 129/84 resume when able (4) Anemia: h/h 10.9 and 34.5 normocytic normochromic monitor Present on Admission?: Yes (5) Dyslipidemia: continue statin-zetia (6) Hypothyroidism: continue levothyroxine (7) Asthma: continue symbicort no acute exac (8) Sleep apnea: pt Bipap settings 11/; however currently refusing reassess daily (9) DVT prophylaxis: SCD/TEDS, per primary Follow up: PCP Dr. Keyes upon discharge Pt was seen and examined in collaboration with Dr. Springer, please see addendum Thank you for this consultation. We will follow the patient with you during their hospital stay. [facility] via pager @ [phone]. Admission and Anticipated Discharge Date Admission Date: October 04, 2020 Supervising Physician Co-Signing Physician Notes Pt seen and examined by me, car coordinated with Lauren Medina PA-C, pls refer to her note above for further detail. Pt is a 74-year-old female w/ T2DM, HTN, HLD, asthma, HUNTER, hypothyroidism, depression who presents w/ worsening lower extremity weakness and fall prior to arrival. Patient has been following with Dr. Pantoja secondary to chronic low back pain with radiation to bilateral lower extremities. Pt seen in room 377 after her surgery with Dr. Pantoja, which she tolerated well. She is alert and oriented and answering questions appropriately. She is currently on 2L of suppl. O2. She is overall clear to auscultation b/l, heart sounds regular. Abdomen soft, nontender, nondistended. Moves extremities. Will cont. to closely follow up, monitor vital signs, CBC. Ivette Springer MD Subjective Patient was seen and examined in room 377. Follow-up T9-T10 thoracic cord compression secondary to disc herniation. She slept well until about 4:30 AM when she developed significant back pain with radiation to her lower extremities. She just received analgesia. She states her legs have been moving all night. She denies any fever, chills, sweats, lightheadedness, dizziness, chest pain, shortness of breath, palpitations, nausea, vomiting, abdominal pain. A Acevedo catheter was placed. She is passing gas but no BM yet today. Review of Systems Review of Systems: All systems reviewed & are unremarkable except as noted in HPI & below Physical Exam Physical Exam: Gen: WD/WN, F, NAD, A&O x3 HEENT: Normocephalic, atraumatic, conjunctivae moist, sclerae anicteric, mucous membranes moist. Lung: Clear to Auscultation bilaterally, no wheezes/rales/rhonchi Heart: Regular rate, regular rhythm, no murmurs, rubs, or gallops Abdomen: Soft, NT, ND +BS x 4 Extremities: No edema, b/l lower ext clonus, +L babinski Skin: Warm, no rash, negative turgor. : acevedo cath with yellow urine Results & Data Results & Data ([facility]) Vital Signs (Past 12 Hours) Vital Signs Temp Pulse Resp BP BP Pulse Ox 10/05/20 07:54 36.9 C 85 18 129/84 93 10/04/20 23:22 36.7 C 77 18 141/80 H 96 Laboratory Results Short CBC 10/04/20 10/04/20 10/05/20 Range/Units 14:05 17:57 06:27 WBC 7.65 6.52 5.36 (4.8-10.8) K/uL Hgb 11.5 L 10.9 L 10.9 L (12.0-16.0) g/dL Hct 36.0 L 34.4 L 34.5 L (37-47) % Plt Count 246 215 221 (130-400) K/uL BMP 10/04/20 10/04/20 10/05/20 14:05 17:57 06:27 Sodium 139 140 140 Potassium 3.6 3.6 3.5 Chloride 103 105 106 Carbon Dioxide 29 29 28 BUN 7 8 9 Creatinine 0.70 0.62 0.69 Glucose 121 H 96 116 H Calcium 9.1 9.0 8.5 Liver Function 10/04/20 10/04/20 Range/Units 14:05 17:57 Total Bilirubin 0.4 0.4 (0.2-1) mg/dl AST 14 L 16 (15-37) U/L ALT 21 19 (12-78) U/L Alkaline Phosphatase 51 48 (45-117) U/L Albumin 3.5 3.2 L (3.4-5.0) gm/dl Urine 10/04/20 Range/Units 22:47 Urine Color Yellow Urine Appearance Clear (Clear) Urine pH 5.5 (4.5-7.5) Ur Specific [place] 1.015 (1.000-1.030) Urine Protein Negative (Negative) Urine Glucose (UA) Negative (Negative) Medications Administered Aspirin (Aspirin 81 Mg Ectab) 81 mg PO QAM [facility] Stop: 11/04/20 08:59 Last Admin: 10/05/20 08:16 Dose: Not Given Documented by: [id number] Bupropion HCl (Bupropion Sr 100 Mg Tabcr) 100 mg PO BID [facility] Stop: 11/03/20 20:59 Last Admin: 10/05/20 08:20 Dose: 100 mg Documented by: [id number] Admin: 10/04/20 20:42 Dose: 100 mg Documented by: [id number] Docusate Sodium (Docusate Sodium 100 Mg Cap) 100 mg PO BID [facility] Stop: 11/03/20 20:59 Last Admin: 10/05/20 08:16 Dose: Not Given Documented by: [id number] Admin: 10/04/20 20:41 Dose: 100 mg Documented by: [id number] Donepezil HCl (Donepezil Hcl 10 Mg Tab) 10 mg PO HS [facility] Stop: 11/03/20 20:59 Last Admin: 10/04/20 20:41 Dose: 10 mg Documented by: [id number] Duloxetine HCl (Duloxetine Hcl 60 Mg Cap) 60 mg PO QAM [facility] Stop: 11/04/20 08:59 Last Admin: 10/05/20 08:19 Dose: 60 mg Documented by: [id number] Duloxetine HCl (Duloxetine Hcl 30 Mg Cap) 30 mg PO QPM [facility] Stop: 11/03/20 20:59 Last Admin: 10/04/20 20:41 Dose: 30 mg Documented by: [id number] Ezetimibe/Simvastatin (Ezetimibe/Simvastatin 08/03 Tab) 1 tab PO HS [facility] Stop: 11/03/20 20:59 Last Admin: 10/04/20 20:41 Dose: 1 tab Documented by: [id number] Fluticasone/Vilanterol (Fluticasone/Vilanterol 200/25mcg 14 Puffs/Inhaler) 1 puffs INH DAILY [facility]; Protocol Stop: 11/04/20 08:59 Last Admin: 10/05/20 08:19 Dose: 1 puffs Documented by: [id number] Hydromorphone HCl (Hydromorphone Inj 0.5 Mg/0.5 Ml Syr) 0.5 mg IV Q3H PRN PRN Reason: Pain (6,7,8,9,10) Stop: 10/18/20 17:35 Last Admin: 10/05/20 08:20 Dose: 0.5 mg Documented by: [id number] Admin: 10/05/20 04:44 Dose: 0.5 mg Documented by: [id number] Lactated Ringer's (Lr) 1,000 mls @ 15 mls/hr IV .Q24H [facility] Stop: 11/03/20 17:35 Last Admin: 10/04/20 18:01 Dose: 15 mls/hr Documented by: [id number] Insulin Aspart (Insulin Aspart 100 Units/Ml 3 Ml Pen) 0 units SC Q6 [facility] Stop: 11/04/20 05:59 Last Admin: 10/05/20 06:06 Dose: Not Given Documented by: [id number] Cosigned by: [id number] Levothyroxine Sodium (Levothyroxine Sodium 100 Mcg Tablet) 100 mcg PO DAILYBB [facility] Stop: 11/04/20 06:29 Last Admin: 10/05/20 06:21 Dose: 100 mcg Documented by: [id number] Lorazepam (Lorazepam 1 Mg Tab) 1 mg PO Q6H PRN PRN Reason: Anxiety/spasms Stop: 11/03/20 17:35 Last Admin: 10/04/20 21:55 Dose: 0.5 mg Documented by: [id number] Montelukast Sodium (Montelukast Sodium 10 Mg Tablet) 10 mg PO HS [facility] Stop: 11/03/20 20:59 Last Admin: 10/04/20 20:42 Dose: 10 mg Documented by: [id number] Oxycodone HCl (Oxycodone Hcl Ir 5 Mg Tab (Immediate Release)) 5 mg PO Q4H PRN PRN Reason: MODERATE Pain (4,5,6) & Pre PT Stop: 10/18/20 17:35 Last Admin: 10/04/20 20:41 Dose: 5 mg Documented by: [id number] Trazodone HCl (Trazodone Hcl 50 Mg Tab) 25 mg PO [facility] Stop: 11/03/20 20:59 Last Admin: 10/04/20 20:42 Dose: 25 mg Documented by: [id number] Discontinued Medications Diphenhydramine HCl (Diphenhydramine 50 Mg/Ml Vial) 25 mg IV NOW STA Stop: 10/04/20 13:35 Last Admin: 10/04/20 14:07 Dose: 25 mg Documented by: [id number] Acetaminophen ([facility]) 1,000 mg in 100 mls @ 400 mls/hr IV NOW STA Stop: 10/04/20 13:48 Last Infusion: 10/04/20 14:27 Dose: 0 mls/hr Documented by: [id number] Admin: 10/04/20 14:09 Dose: 400 mls/hr Documented by: [id number] Insulin Aspart (Insulin Aspart 100 Units/Ml 3 Ml Pen) 0 units SC ACHS [facility] Stop: 11/03/20 18:14 Last Admin: 10/04/20 21:46 Dose: 2 units Documented by: [id number] Cosigned by: [id number] Admin: 10/04/20 18:58 Dose: 3 units Documented by: [id number] Cosigned by: [id number] Insulin Glargine (Insulin Glargine Solostar 100 Units/Ml 3 Ml Pen) 10 units SC ONE ONE Stop: 10/04/20 21:01 Last Admin: 10/04/20 21:48 Dose: 10 units Documented by: [id number] Cosigned by: [id number] Morphine Sulfate (Morphine Sulfate 4 Mg/Ml 1 Ml Carp\Vial) 4 mg IV NOW STA Stop: 10/04/20 13:35 Last Admin: 10/04/20 14:08 Dose: 4 mg Documented by: [id number]
--- NOTE | 2020-10-05 09:23 | Anesthesiology Consultation ---
Date of Service October 05, 2020 Assessment & Plan (1) Encounter for pre-operative examination: Chart Review Chart Review: Acceptable Risk for Surgery Consults Requested none ASA ASA3 Proposed Anesthesia Anesthesia Type: General Risk / Benefits Reviewed With: PT / POA / Parent / Guardian, Accepts Plan and Informed Consent Obtained History Surgery Operation Date: 10/05/20 10:05 Proposed Procedures p T9-T11 Thoracic Decompression and Fusion - Hu Pantoja, Height/Weight Height: 4 ft 10 in Weight: 85.9 kg Allergies Allergy/AdvReac Type Severity Reaction Status Date / Time miconazole Allergy Intermediate SEVERE Verified 10/03/20 20:42 BURNING ITCHING morphine Allergy Mild ITCHING Verified 10/03/20 20:42 erythromycin base Allergy Unknown Verified 10/03/20 20:42 codeine AdvReac Mild DYSPEPSIA Verified 10/03/20 20:42 doxycycline AdvReac Mild GASTRITIS Verified 10/03/20 20:42 Macrolide Antibiotics AdvReac Mild DYSPEPSIA Verified 10/03/20 20:42 (TOLERATED Z-PACK) Medications Home Medications Medication Instructions Recorded Confirmed Last Taken Caltrate + D3 Plus Minerals 1 tab PO BID 02/13/19 10/04/20 04/08/19 22:00 Multivitamin 50 Plus 1 tab PO QAM 02/13/19 10/04/20 04/08/19 08:00 Refresh Liquigel 2 drp OPHTHALMIC (EYE) BID PRN 02/13/19 10/04/20 04/08/19 20:00 acetaminophen [Tylenol Arthritis 2 tab PO Q8H PRN 02/13/19 10/04/20 04/08/19 22:00 Pain] albuterol sulfate 2 inh INHALATION Q4H PRN 02/13/19 10/04/20 04/08/19 22:00 aspirin [Aspir-81] 81 mg PO QAM 02/13/19 10/04/20 Unknown budesonide-formoterol [Symbicort] 2 puff INHALATION BID 02/13/19 10/04/20 04/08/19 22:00 bupropion HCl [Wellbutrin SR] 100 mg PO BID 02/13/19 10/04/20 04/09/19 04:30 celecoxib [Celebrex] 200 mg PO QAM 02/13/19 10/04/20 04/01/19 08:00 cholecalciferol (vitamin D3) 1,000 unit PO QAM 02/13/19 10/04/20 03/26/19 08:00 [Vitamin D3] coQ10 (ubiquinol) 100 mg PO BID 02/13/19 10/04/20 03/26/19 08:00 cyclobenzaprine 5 mg PO Q6H PRN 02/13/19 10/04/20 Unknown donepezil [Aricept] 10 mg PO 02/13/19 10/04/20 04/08/19 18:00 duloxetine [Cymbalta] 30 mg PO QPM 02/13/19 10/04/20 04/08/19 18:00 duloxetine [Cymbalta] 60 mg PO QAM 02/13/19 10/04/20 04/09/19 04:30 esomeprazole magnesium [Nexium] 40 mg PO QAM 02/13/19 10/04/20 04/09/19 04:30 ezetimibe-simvastatin [Vytorin 1 tab PO 02/13/19 10/04/20 04/08/19 18:00 10-20] fluticasone propionate [Flonase 2 spray INTRANASAL 02/13/19 10/04/20 04/08/19 08:00 Allergy Relief] folic acid 0.8 mg PO QAM 02/13/19 10/04/20 04/08/19 08:00 lamotrigine [Lamictal] 150 mg PO 02/13/19 10/04/20 04/08/19 22:00 levothyroxine 100 mcg PO QA 02/13/19 10/04/20 04/09/19 04:30 memantine [Namenda XR] 14 mg PO QAM 02/13/19 10/04/20 04/08/19 08:00 metformin 1,000 mg PO BID 02/13/19 10/04/20 04/07/19 18:00 montelukast [Singulair] 10 mg PO 02/13/19 10/04/20 04/08/19 18:00 omega 9-zal-lqt-fish oil [Fish Oil] 1 cap PO BID 02/13/19 10/04/20 03/26/19 08:00 oxycodone 7.5 mg PO Q6H PRN 02/13/19 10/04/20 04/08/19 18:00 phenylephrine HCl [Sudafed PE] 10 mg PO Q4H PRN 02/13/19 10/04/20 04/08/19 22:00 vitamin E 400 unit PO HS 02/13/19 10/04/20 03/26/19 08:00 trazodone 50 mg tablet 25 mg PO HS tab 11/13/19 10/04/20 Unknown chlorpheniramine 4 1 tab PO Q4H PRN 11/26/19 10/04/20 Unknown mg-phenylephrine 10 mg tablet famotidine 40 mg tablet 40 mg PO BID 04/12/20 10/04/20 Unknown furosemide 40 mg tablet 40 mg PO DAILY #90 tab 07/14/20 10/04/20 Unknown magnesium oxide 400 mg PO .COMPLEX #30 cap 07/14/20 10/04/20 Unknown lisinopril 40 mg PO DAILY 10/03/20 10/04/20 Unknown Active Medications Generic Name Dose Route Start Last Admin Trade Name Lei PRN Reason Stop Dose Admin Aspirin 81 mg 10/05/20 09:00 10/05/20 08:16 Aspirin 81 Mg Ectab PO 11/04/20 08:59 Not Given QAM SARAI Bupropion HCl 100 mg 10/04/20 21:00 10/05/20 08:20 Bupropion Sr 100 Mg Tabcr PO 11/03/20 20:59 100 mg BID SARAI Administration Docusate Sodium 100 mg 10/04/20 21:00 10/05/20 08:16 Docusate Sodium 100 Mg Cap PO 11/03/20 20:59 Not Given BID SARAI Donepezil HCl 10 mg 10/04/20 21:00 10/04/20 20:41 Donepezil Hcl 10 Mg Tab PO 11/03/20 20:59 10 mg HS SARAI Administration Duloxetine HCl 60 mg 10/05/20 09:00 10/05/20 08:19 Duloxetine Hcl 60 Mg Cap PO 11/04/20 08:59 60 mg QAM SARAI Administration Duloxetine HCl 30 mg 10/04/20 21:00 10/04/20 20:41 Duloxetine Hcl 30 Mg Cap PO 11/03/20 20:59 30 mg QPM SARAI Administration Ezetimibe/Simvastatin 1 tab 10/04/20 21:00 10/04/20 20:41 Ezetimibe/Simvastatin 08/03 Tab PO 11/03/20 20:59 1 tab HS SARAI Administration Fluticasone/Vilanterol 1 puffs 10/05/20 09:00 10/05/20 08:19 Fluticasone/Vilanterol 200/25mcg 14 Puffs/Inhaler INH 11/04/20 08:59 1 puffs DAILY SARAI Administration Protocol Hydromorphone HCl 0.5 mg 10/04/20 17:36 10/05/20 08:20 Hydromorphone Inj 0.5 Mg/0.5 Ml Syr IV 10/18/20 17:35 0.5 mg Q3H PRN Administration Pain (6,7,8,9,10) Lactated Ringer's 1,000 mls @ 15 mls/hr 10/04/20 17:36 10/04/20 18:01 Lr IV 11/03/20 17:35 15 mls/hr .Q24H SARAI Administration Insulin Aspart 0 units 10/05/20 06:00 10/05/20 06:06 Insulin Aspart 100 Units/Ml 3 Ml Pen SC 11/04/20 05:59 Not Given Q6 SARAI Levothyroxine Sodium 100 mcg 10/05/20 06:30 10/05/20 06:21 Levothyroxine Sodium 100 Mcg Tablet PO 11/04/20 06:29 100 mcg DAILYBB SARAI Administration Lorazepam 1 mg 10/04/20 17:36 10/04/20 21:55 Lorazepam 1 Mg Tab PO 11/03/20 17:35 0.5 mg Q6H PRN Administration Anxiety/spasms Montelukast Sodium 10 mg 10/04/20 21:00 10/04/20 20:42 Montelukast Sodium 10 Mg Tablet PO 11/03/20 20:59 10 mg HS SARAI Administration Oxycodone HCl 5 mg 10/04/20 17:36 10/04/20 20:41 Oxycodone Hcl Ir 5 Mg Tab (Immediate Release) PO 10/18/20 17:35 5 mg Q4H PRN Administration MODERATE Pain (4,5,6) & Pre PT Trazodone HCl 25 mg 10/04/20 21:00 10/04/20 20:42 Trazodone Hcl 50 Mg Tab PO 11/03/20 20:59 25 mg HS SARAI Administration NPO Date Last Intake of Fluids: 10/04/20 Time Last Intake of Fluids: 23:00 Date Last Intake of Solids: 10/04/20 Time Last Intake of Solids: 17:30 Past Medical History Medical History Anemia Anxiety Asthma STABLE Cyclothymic disorder MOOD DISORDER Depression Diabetes mellitus, type 2 NIDDM Dry eye syndrome Dyspepsia CHRONIC FELT D/T MEDICATION INTERACTIONS (POLYPHARMACY) Fibromyalgia GERD (gastroesophageal reflux disease) OCCASIONAL History of blood transfusion REMOTE POST-OP Hyperlipidemia Hypertension Hypothyroidism Kidney stones Migraine 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 Osteoarthritis Peripheral neuropathy B/L UE/LE Sleep apnea BIPAP Spinal stenosis Ventral hernia Exercise / Class Metabolic Activity III < 4 Walking/Shop/Light housework Past Family History Family History Mother Family history of diabetes mellitus COPD (chronic obstructive pulmonary disease) Diabetes Hypertension Brother Family history of diabetes mellitus Diabetes Renal failure Sister Family history of diabetes mellitus Malignant melanoma Uncle Family hx of colon cancer Colorectal cancer Paternal Aunt Breast cancer Maternal Ovarian cancer Paternal Past Surgical History Surgical History Fusion of spine LUMBAR X2 H/O foot surgery RIGHT HAMMERTOE AND BUNION REPAIR H/O: hysterectomy + ANTERIOR/POSTERIOR REPAIR History of bladder surgery SUSPENSION History of cataract surgery RIGHT/LEFT History of section History of cholecystectomy History of colonoscopy History of esophagogastroduodenoscopy (EGD) History of shoulder surgery RIGHT SHOULDER History of surgery perianal fistula History of tonsillectomy Adenoidectomy History of tooth extraction History of total knee replacement RIGHT/LEFT History of vaginal hysterectomy Past Anesthesia History No Hx of Anesthesia Complications and No Family Hx of Anesthesia Complications History of PONV No Hx of PONV and No Hx of Motion Sickness Social History Smoking Status: Never smoker Hx Alcohol Use: No Hx Substance Use: No substance use type: does not use Physical Exam Vital Signs Last Vital Signs Temp 98.4 F 10/05/20 08:59 Pulse 90 10/05/20 08:59 Resp 18 10/05/20 08:59 BP 132/62 10/05/20 08:59 Pulse Ox 93 10/05/20 08:59 ENMT Mouth: no dentition abnormality Thyromental Distance: > or= 3.5 Finger Breadths Mallampati Class: II Neck normal visual inspection Respiratory normal respiratory effort Auscultation: lungs clear to auscultation bilaterally Cardiovascular Rate/Rhythm: regular rate and regular rhythm Testing Laboratory Results 10/05/20 06:27 10/05/20 06:27 Hemoglobin A1c 6.3 % (4.5-5.6) H 10/05/20 06:27 Urine Color Yellow 10/04/20 22:47 Urine Appearance Clear (Clear) 10/04/20 22:47 Urine pH 5.5 (4.5-7.5) 10/04/20 22:47 Ur Specific [place] 1.015 (1.000-1.030) 10/04/20 22:47 Urine Protein Negative (Negative) 10/04/20 22:47 Urine Glucose (UA) Negative (Negative) 10/04/20 22:47 Urine Ketones Negative (Negative) 10/04/20 22:47 Urine Nitrite Negative (Negative) 10/04/20 22:47 Ur Leukocyte Esterase Negative (Negative) 10/04/20 22:47 Blood Type A Positive 10/04/20 14:05 Antibody Screen NEGATIVE 10/04/20 14:05 10/05/20 06:05 POC Glucose 120 H Electrocardiogram Date: 10/04/20 Findings: + NSR @ (78 bpm) Echocardiogram Date: 11/10/17 EF 60-65%. No RWMA. Technically limited study. No significant valvular disease.
[2020-10-05] MEDS ORDERED: ePHEDrine sulfate 50 MG/ML AMP IV PRN (09:28)
[2020-10-05] MEDS ORDERED: HYDROmorphone INJ 1 MG/ML SYRINGE IV PRN (09:28)
[2020-10-05] MEDS ORDERED: ATROPINE SULFATE 0.1 MG/ML 10ML SYR IV PRN (09:28)
[2020-10-05] MEDS ORDERED: ONDANSETRON INJ 2 MG/ML 2 ML VIAL IV PRN ×2 (09:28→15:06)
--- NOTE | 2020-10-05 09:41 | History & Physical Bridge Note ---
Date of Service October 05, 2020 History & Physical Bridge Note I have examined the patient, reviewed the History & Physical and in the interval since the performance of the History & Physical I have noted the following changes of clinical significance: no changes noted
[2020-10-05] MEDS ORDERED: PROPOFOL IV EMULSION 10 MG/ML 20 ML VIAL IV ONE (09:55)
[2020-10-05] MEDS ORDERED: DEXAMETHASONE SOD INJ 4 MG/ML VIAL ONE (09:55)
[2020-10-05] MEDS ORDERED: HYDROmorphone INJ 2 MG/ML SYR/VIAL ONE ×2 (09:55→10:55)
[2020-10-05] MEDS ORDERED: LIDOCAINE HCL 2% 2 ML VIAL/AMP(20MG/ML) INFIL ONE (09:55)
[2020-10-05] MEDS ORDERED: ROCURONIUM BROMIDE 10 MG/ML 5 ML VIAL IV ONE (09:55)
[2020-10-05] MEDS ORDERED: ONDANSETRON INJ 2 MG/ML 2 ML VIAL ONE (09:55)
[2020-10-05] MEDS ORDERED: NEOSTIGMINE METHYLSULFATE 1 MG/ML 10ML VIAL ONE (09:56)
[2020-10-05] MEDS ORDERED: GLYCOPYRROLATE 0.2 MG/ML VIAL ONE ×2 (09:56→12:23)
[2020-10-05] MEDS ORDERED: BUPIVACAINE/EPINEPHRINE 0.5% MPF 1:200,000 30 ML VIAL ONE (10:02)
[2020-10-05] MEDS ORDERED: BACITRACIN INJ 50,000 UNIT VIAL ONE (10:03)
[2020-10-05] MEDS ORDERED: ALBUMIN HUMAN 5% 12.5 GM/250 ML VIAL IV ONE (10:07)
[2020-10-05] MEDS ORDERED: KETAMINE 50 MG/5 ML SYRINGE ONE (10:33)
[2020-10-05] MEDS ORDERED: LABETALOL HCL IV 5 MG/ML 20ML IV ONE ×4 (10:54→11:47)
[2020-10-05] MEDS ORDERED: FLOSEAL HEMOSTATIC MATRIX 10ML TOP ONE (11:05)
--- NOTE | 2020-10-05 12:32 | Operative Report ---
Post Operative Report Pre & Post Diagnosis Operation Date: 10/05/20 10:05 Pre-Op Diagnosis: THORACIC MYELOPATHY Post-Op Diagnosis: THORACIC MYELOPATHY I identified the patient and participated in the time-out.: Yes Procedure Operation Date: 10/05/20 10:05 Actual Procedures #1 T9-T10 T10-11 decompression with bilateral medial facetectomies. #2 posteri or spinal fusion T8-T9 T9-T10 T10-T11. #3 placement of posterior segmental instrumentation T8-T11. This includes connectors. #4 placement locally harvested morselized autograft in the posterior lateral gutters. #5 placement of his collagen sponge, master graft in the posterior gutters from T8-T11. Surgeon Hu Pantoja, Asphalt Roller Operator Chelita Marie Estimated Blood Loss 250 Findings See Below The patient is 4 foot 10 inches tall weighing over 85 kg with a BMI in excess of 39. The patient's body habitus did add increased technical difficulty adding least 50% increase to the operative time. Specimens None Indications This is a 74-year-old female who presents with a severe decline in status. She did have known thoracic spinal stenosis with myelopathy. In light of her rapid progression and inability ambulate with she is here for urgent decompression and stabilization. Description of Procedure Patient was met with properly case discussed all questions addressed with heparin patient was taken back to op suite underwent intubation placed in a prone position the Sylvain table atop the Robbie frame. All bony prominences well-padded eyes inspected to ensure no external pressure placed upon the. This point the thoracolumbar spine was prepped and draped in a sterile fashion. Sharp dissection with assistance pericardial performed down to and exposing the lamina and transverse processes of T8-T9-T10 and T11. And then performed a complete laminectomy of T10 and T9 including bilateral medial facetectomies addressing severe spinal stenosis. Pedicle screws were placed in T8-T9-T10 and then connected to the previous constanza between T11 and T12. Instrumentation was locked into place the transverse processes were burred to subcortical being bone and infuse collagen sponge, master graft local autograft was placed in the posterior gutters. 15 round SHADIA drain inserted. Incision was then closed with 1 Vicryl in the fascia 2-0 Vicryl subcutaneously and 4 Monocryl for final skin closure. Steri-Strip sterile dressings placed. Patient will continue PACU stable condition. Please note spinal cord monitoring was utilized at the procedure no changes noted. Lastly Chelita Marie was present at the entire procedure involved the patient positioning complex portions of the surgery and final skin closure. I attest to the content of the Intraoperative Record and any orders documented therein. Any exceptions are noted below.
--- NOTE | 2020-10-05 13:14 | Fluoroscopy Report ---
FL thoracic spine 2V CLINICAL HISTORY: T9-11 DECOMPRESSION/FUSION COMPARISON STUDY: MRI dated 09/27/2020 FLUOROSCOPY TIME: 42 seconds. NUMBER OF FLUOROSCOPIC IMAGES: 2 FINDINGS: There are postsurgical changes present within the spine with multiple lower thoracic pedicl e screws and spinal rods. Spinal rods extend the lumbar region. Given the limited [id number], accu rate numbering is not possible. IMPRESSION: Postsurgical changes of a thoracic spinal decompression and fusion ACT 112: Negative or not required by law. Electronically signed by: Michael Dinh M.D. 10/05/2020 1:13 PM
[2020-10-05] MEDS: fentaNYL citrate 100 MCG/2 ML VIAL IV PRN ×4 (13:22→13:50)
[2020-10-05] MEDS ORDERED: ALBUT/IPRATROP 3MG/0.5MG NEB 3 ML VIAL NEB STA (13:35)
[2020-10-05] MEDS ORDERED: INSULIN GLARGINE SOLOSTAR 100 UNITS/ML 3 ML PEN SC ONE (13:45)
--- NOTE | 2020-10-05 13:54 | Pharmacy Report ---
Pharmacy Glycemic Short Note 2 - Date of Service October 05, 2020 - Glycemic Short BSG Results (Last 24 hours): 10/04/20 10/04/20 10/04/20 14:05 17:33 17:57 Glucose 121 H 96 POC Glucose 95 10/04/20 10/05/20 10/05/20 20:37 06:05 06:27 Glucose 116 H POC Glucose 190 H 120 H 10/05/20 12:55 Glucose POC Glucose 146 H OUTPATIENT ANTIDIABETIC REGIMEN: * Metformin 1 g PO BIDM * HbA1c: 6.3% (10/05/20) ASSESSMENT: : * Ms Ritter went to the OR this morning for a lumbar procedure. * She received IV dexamethasone, which is expected to contribute to steroid- induced hyperglycemia. * Continue basal/bolus insulin regimen during admission. 10/04/20 * RAND is a 74 year old female presented to ED on 10/04 with worsening lower extremity weakness and fall prior to arrival. * Patient to have T9-T11 decompression fusion tomorrow (10/05) * NPO after midnight * BSGs of 121 and 95 mg/dL so far today * Will use Novolog for now and hold basal this evening PLAN FOR INPATIENT GLYCEMIC CONTROL: * Hold outpatient oral diabetes medications * Basal insulin * Lantus 15 units x1 dose post-op * Lantus per scale this evening (see EHR for details) * Bolus insulin * NovoLog per scale ACHS or Q6hrs while NPO * Goal Range: Low 110 mg/dL - High 140 mg/dL * Correction Factor: 30 mg/dL/unit * Nutritional / Prandial insulin per carb ratio of 1 unit per 9 grams CHO consumed
--- NOTE | 2020-10-05 14:09 | Anesthesiology Progress Note ---
Date of Service October 05, 2020 Anesthesia Post Procedure Vital Signs Vital Signs: Temp Pulse Pulse Pulse Resp BP BP 10/05/20 13:50 36.6 C 84 13 10/05/20 13:47 84 12 10/05/20 13:40 84 16 10/05/20 13:30 94 H 17 10/05/20 13:20 91 H 10 L 10/05/20 13:10 98 H 9 L 10/05/20 13:00 89 10 L 10/05/20 12:53 36.3 C L 88 8 L 10/05/20 08:59 36.9 C 90 18 10/05/20 07:54 36.9 C 85 18 10/04/20 23:22 36.7 C 77 18 141/80 H 10/04/20 17:15 36.4 C L 81 18 138/83 10/04/20 16:31 158/74 H 10/04/20 16:00 134/79 10/04/20 15:30 151/87 H 10/04/20 15:00 76 19 152/88 H 10/04/20 14:30 81 14 171/98 H 10/04/20 14:11 82 18 149/69 H BP Pulse Ox 10/05/20 13:50 107/80 100 10/05/20 13:47 95 10/05/20 13:40 103/77 93 10/05/20 13:30 112/71 93 10/05/20 13:20 119/75 98 10/05/20 13:10 102/75 98 10/05/20 13:00 100/67 95 10/05/20 12:53 151/78 H 97 10/05/20 08:59 132/62 93 10/05/20 07:54 129/84 93 10/04/20 23:22 96 10/04/20 17:15 97 10/04/20 16:31 92 10/04/20 16:00 99 10/04/20 15:30 97 10/04/20 15:00 98 10/04/20 14:30 98 10/04/20 14:11 99 Pain Intensity Back: Pain Intensity: 4 Transfer of Care Handoff Completed per policy Notes Mental Status: alert / awake / arousable Patient Amnestic to Procedure: Yes Nausea / Vomiting: adequately controlled Pain: adequately controlled Airway Patency, RR, SpO2: stable & adequate BP & HR: stable & adequate Hydration State: stable & adequate Anesthetic Complications: no major complications apparent
[2020-10-05] MEDS ORDERED: NALOXONE HCL 0.4 MG/1 ML VIAL/CARP IV PRN (15:06)
[2020-10-05] MEDS ORDERED: FAMOTIDINE 20 MG TAB PO PRN (15:06)
[2020-10-05] MEDS ORDERED: SOD PHOSPHATE/SOD BIPHOSPHATE ENEMA 132 ML BTL PR PRN (15:06)
[2020-10-05] MEDS ORDERED: DO NOT ADMINISTER PNEUMOCOCCAL VACCINE PRN (15:06)
[2020-10-05] MEDS ORDERED: LORazepam 0.5 MG TAB PO PRN (15:06)
[2020-10-05] MEDS ORDERED: PROMETHAZINE HCL 12.5 MG in SODIUM CHLORIDE 0.9% 50 ML IV PRN (15:06)
[2020-10-05] MEDS ORDERED: hydrOXYzine HCl 25 MG TAB PO PRN (15:06)
[2020-10-05] MEDS ORDERED: ACETAMINOPHEN 1,000 MG/100 ML VIAL IV PRN (15:06)
[2020-10-05] MEDS ORDERED: ONDANSETRON 4 MG OD TAB PO PRN (15:06)
[2020-10-05] MEDS ORDERED: DO NOT ADMINISTER FLU VACCINE PRN (15:06)
[2020-10-05] MEDS ORDERED: MAGNESIUM HYDROXIDE SUSP 30 ML UDC PO PRN (15:06)
[2020-10-05] MEDS ORDERED: LORazepam 0.5 MG/1 ML VIAL IV PRN (15:06)
[2020-10-05] MEDS ORDERED: METOCLOPRAMIDE HCL INJ 5 MG/ML 2 ML VIAL IV PRN (15:06)
[2020-10-05] MEDS ORDERED: bisacodyL 10 MG SUPP PR PRN (15:06)
[2020-10-05] MEDS ORDERED: diphenhydrAMINE Capsule 25 MG CAP PO PRN (15:06)
[2020-10-05] MEDS: oxyCODONE HCL IR 5 MG TAB (IMMEDIATE RELEASE) PO PRN ×2 (15:43→23:24)
--- NOTE | 2020-10-05 15:56 | Electrocardiogram Report ---
Test Reason : Blood Pressure : / mmHG Vent. Rate : 078 BPM Atrial Rate : 078 BPM P-R Int : 184 ms QRS Dur : 088 ms QT Int : 424 ms P-R-T Axes : 042 011 032 degrees QTc Int : 483 ms Normal sinus rhythm Normal ECG When compared with ECG of 19-NOV-2019 17:50, No significant change was found Confirmed by Anil Paul ([id number]) on 10/05/2020 3:55:34 PM Referred By: Hu Pantoja Confirmed By:Anil Paul
[2020-10-05] MEDS: CLINDAMYCIN 600 MG in DEXTROSE 5% 50 ML IV SCH ×2 (16:28→23:24)
[2020-10-05] MEDS: SODIUM CHLORIDE 0.9% 1000ML 1,000 ML IV SCH (16:28)
[2020-10-05] MEDS: LACTATED RINGER'S 1,000 ML IV SCH (20:16)
[2020-10-05] MEDS: dexAMETHasone 6 MG in SYRINGE 0 ML IV SCH (20:16)
[2020-10-05] MEDS: DONEPEZIL HCL 10 MG TAB PO SCH (20:17)
[2020-10-05] MEDS: MONTELUKAST SODIUM 10 MG TABLET PO SCH (20:18)
[2020-10-05] MEDS: DULoxetine HCL 30 MG CAP PO SCH (20:18)
[2020-10-05] MEDS: EZETIMIBE/SIMVASTATIN 10/20 TAB PO SCH (20:18)
[2020-10-05] MEDS: traZODone HCL 50 MG TAB PO SCH (20:19)
[2020-10-05] MEDS: DOCUSATE SODIUM/SENNA 50/8.6MG TAB PO SCH (20:26)
[2020-10-05] MEDS ORDERED: INSULIN GLARGINE SOLOSTAR 100 UNITS/ML 3 ML PEN SC SCH (21:00)
[2020-10-06] MEDS: dexAMETHasone 6 MG in SYRINGE 0 ML IV SCH ×2 (01:14→09:48)
[2020-10-06] MEDS: oxyCODONE HCL IR 5 MG TAB (IMMEDIATE RELEASE) PO PRN ×4 (03:46→19:56)
[2020-10-06] MEDS: SODIUM CHLORIDE 0.9% 1000ML 1,000 ML IV SCH (04:39)
[2020-10-06] MEDS: LEVOTHYROXINE SODIUM 100 MCG TABLET PO SCH (05:23)
[2020-10-06] MEDS: POLYETHYLENE (MIRALAX) 17 GM PACK PO SCH ×3 (05:27→17:36)
[2020-10-06 06:53] LABS: Hematocrit (blood only) 27.2 % (37-47); Hemoglobin 8.8 g/dL (12.0-16.0); Immature Granulocytes # (auto) 0.08 K/uL (0.00-0.02); Immature Granulocytes % (auto) 0.6 %; Lymphocytes % (auto) 6.2 %; Mean Corpuscular Hemoglobin 27.4 pg (25-34); Mean Corpuscular Hgb Conc 32.4 g/dL (32-36); Mean Corpuscular Volume 84.7 fL (80-100); Mean Platelet Volume 9.3 fL (7.4-10.4); Monocytes # (auto) 0.81 K/uL (0.11-0.59); Monocytes % (auto) 6.3 %; Neutrophils # (auto) 11.15 K/uL (1.4-6.5); Neutrophils % (auto) 86.9 %; Platelet Count 239 K/uL (130-400); RDW Coefficient of Variation 15.5 % (11.5-14.5); RDW Standard Deviation 47.9 fL (36.4-46.3); Red Blood Count 3.21 M/uL (4.2-5.4); White Blood Count 12.84 K/uL (4.8-10.8)
[2020-10-06 07:39] LABS: BUN Creatinine Ratio 14.1 (10-20); Calcium 8.1 mg/dl (8.5-10.1); Creatinine Clr Calc Pharmacy 58.4 ml/min; Est GFR (African American) 84.1; Est GFR (Non-African American) 72.6; Potassium 4.1 mmol/L (3.5-5.1)
[2020-10-06] MEDS: ACETAMINOPHEN 500 MG TAB PO PRN (07:48)
--- NOTE | 2020-10-06 08:12 | Hospitalist Progress Note ---
Date of Service October 06, 2020 Assessment & Plan (1) Myelopathy concurrent with and due to spinal stenosis of thoracic region: status post spinal surgery -"This is a 74-year-old female who has significant past medical history of T2DM, HTN, HLD, asthma, HUNTER, hypothyroidism, depression who presents to ED secondary to worsening lower extremity weakness and fall prior to arrival. Of significance patient has been following with Dr. Pantoja secondary to chronic low back pain with radiation to bilateral lower extremities. -MRI Thoracic spine: Interval development of diffuse disc bulge with superimposed large central disc extrusion at T9-T10 with superior subligamentous migration. These findings result in severe narrowing of the central canal with suspected cord compression and mild cord edema." -s/p spinal surgery on 10/06/[address] Pantoja (#1 T9-T10 T10-11 decompression with bilateral medial facetectomies. #2 posterior spinal fusion T8-T9 T9-T10 T10-T11. #3 placement of posterior se)gmental instrumentation T8-T11. This includes connectors. #4 placement locally harvested morselized autograft in the posterior lateral gutters. #5 placement of his collagen sponge, master graft in the posterior gutters from T8-T11. -incentive spirometry -PT/OT assessments -10/06/2020: Patient seen and examined while laying semi-upright on the bed. Patient able to move all extremities but reports still some leg numbness as before the surgery. The SHADIA drain to the back has collected blood. Patient denies acute back pain but notes some discomfort present. Patient denies shortness of breath. Breathing on room air. no wheezing. Patient reports perhaps feeling orthostatic symptoms on 10/05/2020. She is to be seen again by PT/OT for further evaluation. Patient denies other symptoms on review of systems (2) Anemia: Acute Blood loss anemia secondary to surgery -admission Hemoglobin/Hematocrit 10.9 and 34.5, surgery on 10/05/2020 as above -SHADIA drain Management as per orthopedic service -Hgb 8.8 on 10/06/2020 (3) Diabetes mellitus, type II: -HbA1c 6.3 on 10/05/2020 -at home , patient uses metformin -currently while in the hospital, the pharmacy glycemic control is managing the blood sugars (4) Hypertension: -Last echocardiogram 11/2019 EF 58%, grade 1 diastolic dysfunction, mild aortic valve sclerosis. -resume home dose lisinopril 40 mg daily and Lasix 40 mg daily starting on 10/06/2020 (5) Dyslipidemia: -on statin, zetia GERD (Gastroesophageal reflux disease) -famotidine BID prn (6) Hypothyroidism: -continue home dose levothyroxine (7) Asthma: -continue symbicort -no current wheezing, albuterol prn for shortness of breath or wheezing (8) Sleep apnea: -patient's Bipap setting are 08/19 -use as per patient's preferences (9) DVT prophylaxis: -SCD/TEDS, aspirin 81 mg daily as per orthopedics family medical doctor is Dr. Keyes Admission and Anticipated Discharge Date Admission Date: October 04, 2020 Subjective -10/06/2020: Patient seen and examined while laying semi-upright on the bed. Patient able to move all extremities but reports still some leg numbness as before the surgery. The SHADIA drain to the back has collected blood. Patient denies acute back pain but notes some discomfort present. Patient denies shortness of breath. Breathing on room air. no wheezing. Patient reports perhaps feeling orthostatic symptoms on 10/05/2020. She is to be seen again by PT/OT for further evaluation. Patient denies other symptoms on review of systems Review of Systems Review of Systems: All systems reviewed & are unremarkable except as noted in Subjective Physical Exam Constitutional: cooperative and comfortable Eyes: PERRL, conjunctivae normal, anicteric sclerae EOM intact bilaterally ENMT: external ear and nose normal, oropharynx normal Neck: normal visual inspection Respiratory: normal respiratory effort, lungs clear to auscultation Cardiovascular: Rate/Rhythm: regular rate Gastrointestinal (Abdomen): normal bowel sounds, soft, nontender, no hepatosplenomegaly Musculoskeletal: Head/Neck/Chest: normocephalic SHADIA drain to the back Neurologic: PERRL, EOMI, accommodation nl, no face palsy, no dysarthria moves all extremities Psychiatric: A+Ox3, euthymic affect Results & Data Results & Data ([facility]) Vital Signs (Past 12 Hours) Vital Signs Temp Pulse Resp BP Pulse Ox 10/06/20 07:52 37.4 C 85 16 132/59 L 100 10/06/20 03:39 36.7 C 78 20 138/74 92 10/05/20 23:25 97 10/05/20 23:04 37 C 84 19 110/59 L 97
[2020-10-06] MEDS: FLUTICASONE/VILANTEROL 200/25MCG 14 PUFFS/INHALER INH SCH (08:49)
[2020-10-06] MEDS: DOCUSATE SODIUM 100 MG CAP PO SCH ×2 (08:50→21:34)
[2020-10-06] MEDS: buPROPion SR 100 MG TABCR PO SCH ×2 (08:53→21:35)
[2020-10-06] MEDS: DULoxetine HCL 60 MG CAP PO SCH (08:53)
[2020-10-06] MEDS: FUROSEMIDE 40 MG TAB PO SCH (08:54)
[2020-10-06] MEDS: lisinopril 40 MG TAB PO SCH (08:55)
[2020-10-06] MEDS: ASPIRIN 81 MG ECTAB PO SCH (08:55)
[2020-10-06] MEDS ORDERED: NovoLIN-N (NPH) PER UNIT CHARGE SQ ONE (09:00)
[2020-10-06] MEDS: INSULIN ASPART 100 UNITS/ML 3 ML PEN SC SCH ×4 (09:13→21:38)
[2020-10-06] MEDS: FAMOTIDINE 20 MG TAB PO SCH ×2 (09:48→21:34)
[2020-10-06] MEDS ORDERED: lamoTRIgine 25 MG TAB PO ONE (10:13)
--- NOTE | 2020-10-06 10:44 | Orthopedic Progress Note ---
Date of Service October 06, 2020 Assessment & Plan (1) Myelopathy concurrent with and due to spinal stenosis of thoracic region: Admission and Anticipated Discharge Date Admission Date: October 04, 2020 At this time patient still has marked limitations with ambulation secondary to severe myelopathy thoracic spine. We will work with physical therapy and occupational therapy and hopefully rehab placement the next few days. Subjective Back pain controlled leg symptoms improved Physical Exam Physical Exam: Patient is in the chair at the bedside. She appears comfortable. Is good strength testing lower extremities. Results & Data ([facility]) Vital Signs (Past 12 Hours) Vital Signs Temp Pulse Resp BP Pulse Ox 10/06/20 07:52 37.4 C 85 16 132/59 L 100 10/06/20 03:39 36.7 C 78 20 138/74 92 10/05/20 23:25 97 10/05/20 23:04 37 C 84 19 110/59 L 97
--- NOTE | 2020-10-06 13:51 | Pharmacy Report ---
Glycemic Control Progress Note - Date of Service October 06, 2020 - Scope Glycemic Pharmacist consulted for glycemic control to write orders per [facility] inpatient glycemic control protocol. - Objective Accuchecks BSG(last 24 hours):: 10/05/20 10/05/20 10/06/20 16:56 20:34 06:22 Glucose 207 H POC Glucose 203 H 230 H 10/06/20 10/06/20 08:27 12:43 Glucose POC Glucose 200 H 180 H HbA1c:: Hemoglobin A1c 6.3 % (4.5-5.6) H 10/05/20 06:27 - Recent Pertinent Medications The patient is currently receiving: * Basal insulin: Lantus 15 units every 12 hours * Correctional Insulin: Novolog Correction per scale ACHS Goal Range: Low 110 mg/dL - High 140 mg/dL Correction Factor: 30 mg/dL/unit * Prandial insulin: Per carb ratio of 1 unit per 9 grams CHO consumed - Outpatient Anti-Diabetic Meds metformin 1 gm PO BID - Assessment & Plan ASSESSMENT: * See progress note from 10/04/20 for more background info, in short: * Pt receiving SQ basal bolus insulin regimen for hyperglycemia secondary to baseline DM (outpatient regimen on hold). Patient is POD 1 for spinal surgery. She received dexamethasone 8 mg IV during surgery as well as 8 mg IV q8 hours x 3 doses starting last night. * Patient is currently receiving an average of 41 units of insulin per day * 30 units of basal insulin * 11 units of prandial/correctional insulin * BSGs ranging 120 - 230 mg/dl over the past 24hrs * Changes needed to insulin regimen: * AM Fasting BSG = 200 mg/dl. This is above goal range for patient based on inpatient targets and co-morbidities. The patient is due to receive 2 doses of dexamethasone 6 mg IV today (at 0200 and 1000). Will give NPH 35 units (0.4 units/kg) to attempt to mitigate BSG spike from last dose of dexamethasone. Since Lantus was given late yesterday (@1600 and 2000) will give once daily Lantus tonight. Start Lantus 20 units tonight and plan to decrease rapidly. * Post-prandial BSGs are elevated. Tighten to weight-based stress of 3. * Total daily dose is TBD. Patient receiving steroids right now so expect needs to decrease once stopped. PLAN FOR INPATIENT GLYCEMIC CONTROL: * Decreasing Lantus to 20 units SQ nightly (15 units if BSG < 140 mg/dL) but give one time dose of NPH 35 units * TIGHTENING correction factor to 20 mg/dl/unit * TIGHTENING carb ratio to 1 unit per 6 grams CHO consumed * Continuing goal range of Low 110 mg/dL - High 140 mg/dL RECOMMENDATIONS FOR DISCHARGE: * Patient's HbA1C is excellently controlled. * Goal HbA1C = < 7% * current HbA1C 6.3% * Continue current home regimen. Thank you.
[2020-10-06] MEDS: ALBUTEROL HFA 8 GM INHALER INH PRN (15:34)
[2020-10-06] MEDS ORDERED: Nursing to Pharmacy Communication SCH (17:00)
[2020-10-06] MEDS: DONEPEZIL HCL 10 MG TAB PO SCH (21:34)
[2020-10-06] MEDS: EZETIMIBE/SIMVASTATIN 10/20 TAB PO SCH (21:35)
[2020-10-06] MEDS: DULoxetine HCL 30 MG CAP PO SCH (21:35)
[2020-10-06] MEDS: MONTELUKAST SODIUM 10 MG TABLET PO SCH (21:35)
[2020-10-06] MEDS: DOCUSATE SODIUM/SENNA 50/8.6MG TAB PO SCH (21:36)
[2020-10-06] MEDS: traZODone HCL 50 MG TAB PO SCH (21:36)
[2020-10-06] MEDS: INSULIN GLARGINE SOLOSTAR 100 UNITS/ML 3 ML PEN SC SCH (21:40)
[2020-10-07] MEDS: oxyCODONE HCL IR 5 MG TAB (IMMEDIATE RELEASE) PO PRN ×3 (02:53→18:25)
[2020-10-07] MEDS: POLYETHYLENE (MIRALAX) 17 GM PACK PO SCH ×5 (06:07→22:17)
[2020-10-07] MEDS: LEVOTHYROXINE SODIUM 100 MCG TABLET PO SCH (06:07)
[2020-10-07] MEDS: ACETAMINOPHEN 500 MG TAB PO PRN (06:07)
[2020-10-07 06:51] LABS: Basophils # (auto) 0.01 K/uL (0-0.2); Basophils % (auto) 0.1 %; Eosinophils # (auto) 0.02 K/uL (0-0.5); Eosinophils % (auto) 0.2 %; Hematocrit (blood only) 26.3 % (37-47); Hemoglobin 8.5 g/dL (12.0-16.0); Immature Granulocytes # (auto) 0.12 K/uL (0.00-0.02); Immature Granulocytes % (auto) 0.9 %; Lymphocytes # (auto) 1.95 K/uL (1.2-3.4); Mean Corpuscular Hemoglobin 27.5 pg (25-34); Mean Corpuscular Hgb Conc 32.3 g/dL (32-36); Mean Corpuscular Volume 85.1 fL (80-100); Mean Platelet Volume 9.4 fL (7.4-10.4); Monocytes % (auto) 14.6 %; Neutrophils # (auto) 8.98 K/uL (1.4-6.5); Neutrophils % (auto) 69.2 %; Platelet Count 260 K/uL (130-400); RDW Standard Deviation 49.4 fL (36.4-46.3); Red Blood Count 3.09 M/uL (4.2-5.4); White Blood Count 12.98 K/uL (4.8-10.8)
[2020-10-07 07:36] LABS: Albumin Level 2.9 gm/dl (3.4-5.0); BUN Creatinine Ratio 18.5 (10-20); Bilirubin,Total 0.3 mg/dl (0.2-1); Calcium 8.5 mg/dl (8.5-10.1); Creatinine Clr Calc Pharmacy 67.5 ml/min; Est GFR (African American) 100.3; Est GFR (Non-African American) 86.6; Potassium 3.9 mmol/L (3.5-5.1); Total Protein 5.9 gm/dl (6.4-8.2)
--- NOTE | 2020-10-07 07:58 | Hospitalist Progress Note ---
Date of Service October 07, 2020 Assessment & Plan (1) Myelopathy concurrent with and due to spinal stenosis of thoracic region: status post spinal surgery -"This is a 74-year-old female who has significant past medical history of T2DM, HTN, HLD, asthma, HUNTER, hypothyroidism, depression who presents to ED secondary to worsening lower extremity weakness and fall prior to arrival. Of significance patient has been following with Dr. Pantoja secondary to chronic low back pain with radiation to bilateral lower extremities. -MRI Thoracic spine: Interval development of diffuse disc bulge with superimposed large central disc extrusion at T9-T10 with superior subligamentous migration. These findings result in severe narrowing of the central canal with suspected cord compression and mild cord edema." -s/p spinal surgery on 10/06/[address] Pantoja (#1 T9-T10 T10-11 decompression with bilateral medial facetectomies. #2 posterior spinal fusion T8-T9 T9-T10 T10-T11. #3 placement of posterior se)gmental instrumentation T8-T11. This includes connectors. #4 placement locally harvested morselized autograft in the posterior lateral gutters. #5 placement of his collagen sponge, master graft in the posterior gutters from T8-T11. -incentive spirometry -PT/OT assessments -10/06/2020: Patient seen and examined while laying semi-upright on the bed. Patient able to move all extremities but reports still some leg numbness as before the surgery. The SHADIA drain to the back has collected blood. Patient denies acute back pain but notes some discomfort present. Patient denies shortness of breath. Breathing on room air. no wheezing. Patient reports perhaps feeling orthostatic symptoms on 10/05/2020. She is to be seen again by PT/OT for further evaluation. Patient denies other symptoms on review of systems -10/07/2020: Patient continues to have acevedo. Sitting up in the chair. No acute distress. continues to be on room air. no acute distress. no dizziness. no headache. no nausea. no vomiting. no abdomen pain or chest pain. Her review of systems appears to be negative for any new symptoms. Discussed with patient about anemia. (2) Anemia: Acute Blood loss anemia secondary to surgery -admission Hemoglobin/Hematocrit 10.9 and 34.5, surgery on 10/05/2020 as above -SHADIA drain Management as per orthopedic service -Hgb 8.8 on 10/06/2020 -Hbg 8.5 on 10/07/2020 - because of relatively unchanged Hgb in past 2 days despite this being lower than her baseline, the patient does not appear to need a blood transfusion at this time. continue to monitor the Hgb (3) Diabetes mellitus, type II: -HbA1c 6.3 on 10/05/2020 -at home , patient uses metformin -currently while in the hospital, the pharmacy glycemic control is managing the blood sugars (4) Hypertension: -Last echocardiogram 11/2019 EF 58%, grade 1 diastolic dysfunction, mild aortic valve sclerosis. -resumed home dose lisinopril 40 mg daily and Lasix 40 mg daily starting on 10/06/2020 (5) Dyslipidemia: -on statin, zetia GERD (Gastroesophageal reflux disease) -and acid reflux medications (6) Hypothyroidism: -continue home dose levothyroxine (7) Asthma: -continue symbicort -no current wheezing, albuterol prn for shortness of breath or wheezing (8) Sleep apnea: -patient's Bipap setting are 08/19 -use as per patient's preferences History of Seizure in the past -continue Lamotrigine (9) DVT prophylaxis: -SCD/TEDS, aspirin 81 mg daily as per orthopedics family medical doctor is Dr. Keyes Admission and Anticipated Discharge Date Admission Date: October 04, 2020 Subjective -10/07/2020: Patient continues to have acevedo. Sitting up in the chair. No acute distress. continues to be on room air. no acute distress. no dizziness. no headache. no nausea. no vomiting. no abdomen pain or chest pain. Her review of systems appears to be negative for any new symptoms. Discussed with patient about anemia. Review of Systems Review of Systems: All systems reviewed & are unremarkable except as noted in Subjective Physical Exam Constitutional: cooperative and comfortable Eyes: PERRL, conjunctivae normal, anicteric sclerae EOM intact bilaterally ENMT: external ear and nose normal, oropharynx normal Neck: normal visual inspection Respiratory: normal respiratory effort, lungs clear to auscultation Cardiovascular: Rate/Rhythm: regular rate Gastrointestinal (Abdomen): normal bowel sounds, soft, nontender, no hepatosplenomegaly Musculoskeletal: Head/Neck/Chest: normocephalic Neurologic: PERRL, EOMI, accommodation nl, no face palsy, no dysarthria moves all extremities Psychiatric: A+Ox3, euthymic affect Results & Data Results & Data ([facility]) Vital Signs (Past 12 Hours) Vital Signs Temp Pulse Resp BP Pulse Ox 10/07/20 00:09 36.6 C 98 H 20 140/69 96
[2020-10-07] MEDS: INSULIN ASPART 100 UNITS/ML 3 ML PEN SC SCH ×4 (09:35→22:19)
[2020-10-07] MEDS: FLUTICASONE/VILANTEROL 200/25MCG 14 PUFFS/INHALER INH SCH (09:36)
--- NOTE | 2020-10-07 09:36 | Orthopedic Progress Note ---
Date of Service October 07, 2020 Assessment & Plan (1) Myelopathy concurrent with and due to spinal stenosis of thoracic region: Admission and Anticipated Discharge Date Admission Date: October 04, 2020 This time we will continue with physical therapy occupational therapy as tolerated. We will hope for rehab placement the next day or so. Subjective Back pain is controlled leg symptoms steadily improving. Physical Exam Physical Exam: Patient is ambulating with a walker. Much more steady today. Results & Data ([facility]) Vital Signs (Past 12 Hours) Vital Signs Temp Pulse Resp BP Pulse Ox 10/07/20 07:48 36.7 C 86 16 124/70 94 10/07/20 00:09 36.6 C 98 H 20 140/69 96
[2020-10-07] MEDS: ESOMEPRAZOLE PO SCH (09:37)
[2020-10-07] MEDS: DULoxetine HCL 60 MG CAP PO SCH (09:38)
[2020-10-07] MEDS: DOCUSATE SODIUM 100 MG CAP PO SCH ×2 (09:38→22:16)
[2020-10-07] MEDS: FUROSEMIDE 40 MG TAB PO SCH (09:38)
[2020-10-07] MEDS: ASPIRIN 81 MG ECTAB PO SCH (09:39)
[2020-10-07] MEDS: buPROPion SR 100 MG TABCR PO SCH ×2 (09:39→22:18)
[2020-10-07] MEDS: lisinopril 40 MG TAB PO SCH (09:39)
[2020-10-07] MEDS: FAMOTIDINE 20 MG TAB PO SCH ×2 (09:39→22:17)
[2020-10-07] MEDS: ALBUTEROL HFA 8 GM INHALER INH PRN (11:33)
--- NOTE | 2020-10-07 12:47 | Pharmacy Report ---
Glycemic Control Progress Note - Date of Service October 07, 2020 - Scope Glycemic Pharmacist consulted for glycemic control to write orders per [facility] inpatient glycemic control protocol. - Objective Accuchecks BSG(last 24 hours):: 10/06/20 10/06/20 10/06/20 12:43 17:25 20:39 Glucose POC Glucose 180 H 226 H 237 H 10/07/20 10/07/20 10/07/20 06:07 08:26 12:23 Glucose 112 H POC Glucose 132 H 123 H HbA1c:: Hemoglobin A1c 6.3 % (4.5-5.6) H 10/05/20 06:27 - Recent Pertinent Medications The patient is currently receiving: * Basal insulin: Lantus 20 units every 24 hours * Correctional Insulin: Novolog Correction per scale ACHS Goal Range: Low 110 mg/dL - High 140 mg/dL Correction Factor: 20 mg/dL/unit * Prandial insulin: Per carb ratio of 1 unit per 6 grams CHO consumed - Outpatient Anti-Diabetic Meds METFORMIN 1 GM PO BID - Assessment & Plan ASSESSMENT: * See progress note from 10/04/20 for more background info, in short: * Pt receiving SQ basal bolus insulin regimen for hyperglycemia secondary to baseline DM (outpatient regimen on hold). Patient finished with dexamethasone yesterday at 1000. * Patient is currently receiving an average of 99 units of insulin per day * 55 units of basal insulin * 44 units of prandial/correctional insulin * BSGs ranging 180 - 237 mg/dl over the past 24hrs * Changes needed to insulin regimen: * AM Fasting BSG = 132 mg/dl. This is in goal range for patient based on inpatient targets and co-morbidities. Therefore Basal insulin will be continued based upon a scale. * Post-prandial BSGs were not within range but with steroid cessation except a decrease in requirements. Loosen to weight-based stress of 2. * Total daily dose is TBD since steroids stopped. * Restart metformin PLAN FOR INPATIENT GLYCEMIC CONTROL: * Continuing Lantus 10-20 units SQ daily * Lantus 10 units if BSG < 160 mg/dL * Lantus 15 units if BSG 160-200 mg/dL * Lantus 20 units if BSG greater than 200 mg/dL * LOOSENING correction factor to 25 mg/dl/unit * LOOSENING carb ratio to 1 unit per 8 grams CHO consumed * Continuing goal range of Low 110 mg/dL - High 140 mg/dL RECOMMENDATIONS FOR DISCHARGE: * Patient's HbA1C is excellently controlled. * Goal HbA1C = < 7% * current HbA1C 6.3% * Continue current home regimen. Thank you.
[2020-10-07] MEDS: metFORMIN HCL 500 MG TAB PO SCH (18:18)
[2020-10-07] MEDS: MONTELUKAST SODIUM 10 MG TABLET PO SCH (22:14)
[2020-10-07] MEDS: lamoTRIgine 25 MG TAB PO SCH (22:14)
[2020-10-07] MEDS: DULoxetine HCL 30 MG CAP PO SCH (22:15)
[2020-10-07] MEDS: traZODone HCL 50 MG TAB PO SCH (22:16)
[2020-10-07] MEDS: DONEPEZIL HCL 10 MG TAB PO SCH (22:16)
[2020-10-07] MEDS: DOCUSATE SODIUM/SENNA 50/8.6MG TAB PO SCH (22:18)
[2020-10-07] MEDS: EZETIMIBE/SIMVASTATIN 10/20 TAB PO SCH (22:18)
[2020-10-07] MEDS: INSULIN GLARGINE SOLOSTAR 100 UNITS/ML 3 ML PEN SC SCH (22:20)
[2020-10-08] MEDS: oxyCODONE HCL IR 5 MG TAB (IMMEDIATE RELEASE) PO PRN ×5 (01:41→21:25)
[2020-10-08] MEDS: ALBUTEROL HFA 8 GM INHALER INH PRN ×2 (02:01→21:28)
[2020-10-08] MEDS: LEVOTHYROXINE SODIUM 100 MCG TABLET PO SCH (05:21)
[2020-10-08] MEDS: POLYETHYLENE (MIRALAX) 17 GM PACK PO SCH ×3 (05:23→18:00)
--- NOTE | 2020-10-08 07:41 | Hospitalist Progress Note ---
Date of Service October 08, 2020 Assessment & Plan (1) Myelopathy concurrent with and due to spinal stenosis of thoracic region: status post spinal surgery -"This is a 74-year-old female who has significant past medical history of T2DM, HTN, HLD, asthma, HUNTER, hypothyroidism, depression who presents to ED secondary to worsening lower extremity weakness and fall prior to arrival. Of significance patient has been following with Dr. Pantoja secondary to chronic low back pain with radiation to bilateral lower extremities. -MRI Thoracic spine: Interval development of diffuse disc bulge with superimposed large central disc extrusion at T9-T10 with superior subligamentous migration. These findings result in severe narrowing of the central canal with suspected cord compression and mild cord edema." -s/p spinal surgery on 10/06/[address] Pantoja (#1 T9-T10 T10-11 decompression with bilateral medial facetectomies. #2 posterior spinal fusion T8-T9 T9-T10 T10-T11. #3 placement of posterior se)gmental instrumentation T8-T11. This includes connectors. #4 placement locally harvested morselized autograft in the posterior lateral gutters. #5 placement of his collagen sponge, master graft in the posterior gutters from T8-T11. -incentive spirometry,management of SHADIA drain as per orthopedics -PT/OT assessments -10/06/2020: Patient seen and examined while laying semi-upright on the bed. Patient able to move all extremities but reports still some leg numbness as before the surgery. The SHADIA drain to the back has collected blood. Patient denies acute back pain but notes some discomfort present. Patient denies shortness of breath. Breathing on room air. no wheezing. Patient reports perhaps feeling orthostatic symptoms on 10/05/2020. She is to be seen again by PT/OT for further evaluation. Patient denies other symptoms on review of systems -10/07/2020: Patient continues to have acevedo. Sitting up in the chair. No acute distress. continues to be on room air. no acute distress. no dizziness. no headache. no nausea. no vomiting. no abdomen pain or chest pain. Her review of systems appears to be negative for any new symptoms. Discussed with patient about anemia. -10/08/2020: Patient continues to have SHADIA drain to the back. She is laying in the bed but appears to have good mobility on her own with rolling over. Patient denies acute back pain. Breathing on room air. No shortness of breath. No other symptoms on review of systems. It would appear that she remains under orthopedic service because of problems with insurance authorization to go to physical therapy as per patient's report today. (2) Anemia: Acute Blood loss anemia secondary to surgery -admission Hemoglobin/Hematocrit 10.9 and 34.5, surgery on 10/05/2020 as above -SHADIA drain Management as per orthopedic service -Hgb 8.8 on 10/06/2020 -Hbg 8.5 on 10/07/2020 - because of relatively unchanged Hgb in past 2 days despite this being lower than her baseline, the patient does not appear to need a blood transfusion at this time. continue to monitor the Hgb (3) Diabetes mellitus, type II: -HbA1c 6.3 on 10/05/2020 -at home , patient uses metformin -currently while in the hospital, the pharmacy glycemic control is managing the blood sugars (4) Hypertension: -Last echocardiogram 11/2019 EF 58%, grade 1 diastolic dysfunction, mild aortic valve sclerosis. -resumed home dose lisinopril 40 mg daily and Lasix 40 mg daily starting on 10/06/2020 (5) Dyslipidemia: -on statin, zetia GERD (Gastroesophageal reflux disease) -and acid reflux medications (6) Hypothyroidism: -continue home dose levothyroxine (7) Asthma: -continue symbicort -no current wheezing, albuterol prn for shortness of breath or wheezing (8) Sleep apnea: -patient's Bipap setting are 11/5 -use as per patient's preferences History of Seizure in the past -continue Lamotrigine (9) DVT prophylaxis: -SCD/TEDS, aspirin 81 mg daily as per orthopedics family medical doctor is Dr. Keyes Admission and Anticipated Discharge Date Admission Date: October 04, 2020 Subjective -10/08/2020: Patient continues to have SHADIA drain to the back. She is laying in the bed but appears to have good mobility on her own with rolling over. Patient denies acute back pain. Breathing on room air. No shortness of breath. No other symptoms on review of systems. It would appear that she remains under orthopedic service because of problems with insurance authorization to go to physical therapy as per patient's report today. Review of Systems Review of Systems: All systems reviewed & are unremarkable except as noted in Subjective Physical Exam Constitutional: cooperative and comfortable Eyes: PERRL, conjunctivae normal, anicteric sclerae EOM intact bilaterally ENMT: external ear and nose normal, oropharynx normal Neck: normal visual inspection Respiratory: normal respiratory effort, lungs clear to auscultation Cardiovascular: Rate/Rhythm: regular rate Gastrointestinal (Abdomen): normal bowel sounds, soft, nontender, no hepatosplenomegaly Musculoskeletal: Head/Neck/Chest: normocephalic Hip: + surgical drain present (SHADIA drain to the back) Neurologic: PERRL, EOMI, accommodation nl, no face palsy, no dysarthria moves all extremities Psychiatric: A+Ox3, euthymic affect Results & Data Results & Data ([facility]) Vital Signs (Past 12 Hours) Vital Signs Temp Pulse Resp BP Pulse Ox 10/08/20 07:33 36.5 C 92 H 18 95/63 L 92 10/08/20 02:01 105 H 20 97 10/07/20 23:20 37.1 C 93 H 18 105/58 L 94
[2020-10-08] MEDS: ACETAMINOPHEN 500 MG TAB PO PRN ×2 (08:22→16:26)
[2020-10-08] MEDS: FLUTICASONE/VILANTEROL 200/25MCG 14 PUFFS/INHALER INH SCH (09:03)
[2020-10-08] MEDS: ASPIRIN 81 MG ECTAB PO SCH (09:03)
[2020-10-08] MEDS: metFORMIN HCL 500 MG TAB PO SCH ×2 (09:04→16:42)
[2020-10-08] MEDS: FUROSEMIDE 40 MG TAB PO SCH (09:04)
[2020-10-08] MEDS: FAMOTIDINE 20 MG TAB PO SCH ×2 (09:04→21:24)
[2020-10-08] MEDS: buPROPion SR 100 MG TABCR PO SCH ×2 (09:04→21:24)
[2020-10-08] MEDS: ESOMEPRAZOLE PO SCH (09:05)
[2020-10-08] MEDS: DOCUSATE SODIUM 100 MG CAP PO SCH ×2 (09:06→21:24)
[2020-10-08] MEDS: DULoxetine HCL 60 MG CAP PO SCH (09:06)
[2020-10-08] MEDS: INSULIN ASPART 100 UNITS/ML 3 ML PEN SC SCH ×4 (09:10→21:15)
[2020-10-08] MEDS: lisinopril 40 MG TAB PO SCH (09:59)
--- NOTE | 2020-10-08 10:47 | Orthopedic Progress Note ---
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 She clearly requires a rehab setting in light of her severe myelopathy. Hopefully she will be a candidate in the next few days. Subjective Back pain controlled leg symptoms improving Physical Exam Physical Exam: Patient is in bed. She appears quite comfortable. She has reasonable plantar flexion dorsiflexion. Results & Data ([facility]) Vital Signs (Past 12 Hours) Vital Signs Temp Pulse Resp BP BP Pulse Ox 10/08/20 09:58 98 H 109/71 10/08/20 07:33 36.5 C 92 H 18 95/63 L 92 10/08/20 02:01 105 H 20 97 10/07/20 23:20 37.1 C 93 H 18 105/58 L 94
--- NOTE | 2020-10-08 14:46 | Pharmacy Report ---
Pharmacy Glycemic Short Note 2 - Date of Service October 08, 2020 - Glycemic Short BSG Results (Last 24 hours): 10/07/20 10/07/20 10/08/20 17:15 20:44 08:12 POC Glucose 138 H 144 H 164 H 10/08/20 11:54 POC Glucose 122 H OUTPATIENT ANTIDIABETIC REGIMEN: * Metformin 1 g PO BIDM * HbA1c: 6.3% (10/05/20) ASSESSMENT: * Cheyanne received 28 units of insulin yesterday (10 units basal and 18 units salvador us) * Fasting BSG elevated today at 164 mg/dL. Will slightly increase basal insulin and re-schedule to be administered with dinner today instead of at HS. * Post prandial BSGs were well-controlled yesterday, therefore no change will be made. PLAN FOR INPATIENT GLYCEMIC CONTROL: * Hold outpatient oral diabetes medications * Basal insulin - increase * Lantus per scale at dinner: * 15 - 25 units (see eMAR for details) * Bolus insulin * NovoLog per scale ACHS or Q6hrs while NPO * Goal Range: Low 110 mg/dL - High 140 mg/dL * Correction Factor: 25 mg/dL/unit * Nutritional / Prandial insulin per carb ratio of 1 unit per 8 grams CHO consumed RECOMMENDATIONS FOR DISCHARGE: * Patient's HbA1C is excellently controlled. * Goal HbA1C = < 7% * current HbA1C 6.3% * Continue current home regimen.
[2020-10-08] MEDS: INSULIN GLARGINE SOLOSTAR 100 UNITS/ML 3 ML PEN SC SCH (18:32)
[2020-10-08] MEDS: EZETIMIBE/SIMVASTATIN 10/20 TAB PO SCH (21:24)
[2020-10-08] MEDS: DULoxetine HCL 30 MG CAP PO SCH (21:24)
[2020-10-08] MEDS: traZODone HCL 50 MG TAB PO SCH (21:24)
[2020-10-08] MEDS: DONEPEZIL HCL 10 MG TAB PO SCH (21:24)
[2020-10-08] MEDS: MONTELUKAST SODIUM 10 MG TABLET PO SCH (21:24)
[2020-10-08] MEDS: DOCUSATE SODIUM/SENNA 50/8.6MG TAB PO SCH (21:26)
[2020-10-08] MEDS: lamoTRIgine 25 MG TAB PO SCH (21:26)
[2020-10-08] MEDS ORDERED: Nursing to Pharmacy Communication SCH (23:15)
[2020-10-09] MEDS: oxyCODONE HCL IR 5 MG TAB (IMMEDIATE RELEASE) PO PRN ×5 (03:02→22:39)
[2020-10-09] MEDS: LEVOTHYROXINE SODIUM 100 MCG TABLET PO SCH (05:50)
[2020-10-09] MEDS: ACETAMINOPHEN 500 MG TAB PO PRN ×2 (07:19→18:15)
[2020-10-09] MEDS: INSULIN ASPART 100 UNITS/ML 3 ML PEN SC SCH ×4 (09:22→21:00)
[2020-10-09] MEDS: ESOMEPRAZOLE PO SCH (09:22)
[2020-10-09] MEDS: DULoxetine HCL 60 MG CAP PO SCH (09:23)
[2020-10-09] MEDS: DOCUSATE SODIUM 100 MG CAP PO SCH ×2 (09:23→20:58)
[2020-10-09] MEDS: ASPIRIN 81 MG ECTAB PO SCH (09:23)
[2020-10-09] MEDS: lisinopril 40 MG TAB PO SCH (09:23)
[2020-10-09] MEDS: FUROSEMIDE 40 MG TAB PO SCH (09:23)
[2020-10-09] MEDS: FLUTICASONE/VILANTEROL 200/25MCG 14 PUFFS/INHALER INH SCH (09:23)
[2020-10-09] MEDS: buPROPion SR 100 MG TABCR PO SCH ×2 (09:23→20:58)
[2020-10-09] MEDS: FAMOTIDINE 20 MG TAB PO SCH ×2 (09:23→20:58)
[2020-10-09] MEDS: metFORMIN HCL 500 MG TAB PO SCH ×2 (09:24→18:13)
--- NOTE | 2020-10-09 10:08 | Hospitalist Progress Note ---
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 Of significance patient has been following with Dr. Pantoja secondary to chronic low back pain with radiation to bilateral lower extremities. -MRI Thoracic spine: Interval development of diffuse disc bulge with superimposed large central disc extrusion at T9-T10 with superior subligamentous migration. These findings result in severe narrowing of the central canal with suspected cord compression and mild cord edema." -s/p spinal surgery on 10/06/[address] Pantoja (#1 T9-T10 T10-11 decompression with bilateral medial facetectomies. #2 posterior spinal fusion T8-T9 T9-T10 T10-T11. #3 placement of posterior se)gmental instrumentation T8-T11. This includes connectors. #4 placement locally harvested morselized autograft in the posterior lateral gutters. #5 placement of his collagen sponge, master graft in the posterior gutters from T8-T11. -patient's SHADIA drain was removed on 10/08/2020 (2) Anemia: Acute Blood loss anemia secondary to surgery -admission Hemoglobin/Hematocrit 10.9 and 34.5, surgery on 10/05/2020 as above -SHADIA drain Management as per orthopedic service -Hgb 8.8 on 10/06/2020 -Hbg 8.5 on 10/07/2020 - because of relatively unchanged Hgb in past 2 days despite this being lower than her baseline, the patient does not appear to need a blood transfusion at this time. -CBC ordered for 10/09/2020 (3) Diabetes mellitus, type II: -HbA1c 6.3 on 10/05/2020 -at home , patient uses metformin -currently while in the hospital, the pharmacy glycemic control is managing the blood sugars (4) Hypertension: -Last echocardiogram 11/2019 EF 58%, grade 1 diastolic dysfunction, mild aortic valve sclerosis. -resumed home dose lisinopril 40 mg daily and Lasix 40 mg daily starting on 10/06/2020 (5) Dyslipidemia: -on statin, zetia GERD (Gastroesophageal reflux disease) -and acid reflux medications (6) Hypothyroidism: -continue home dose levothyroxine (7) Asthma: -continue symbicort -no current wheezing, albuterol prn for shortness of breath or wheezing (8) Sleep apnea: -patient's Bipap setting are / -use as per patient's preferences History of Seizure in the past -continue Lamotrigine (9) DVT prophylaxis: -SCD/TEDS, aspirin 81 mg daily as per orthopedics family medical doctor is Dr. Keyes Admission and Anticipated Discharge Date Admission Date: October 04, 2020 Subjective Patient requested changing the timing of Nexium. Otherwise, she denies new complaints or new symptoms on review of systems. Patient sitting up comfortable in the chair. Breathing on room air. Review of Systems Review of Systems: All systems reviewed & are unremarkable except as noted in Subjective Physical Exam Constitutional: cooperative and comfortable Eyes: PERRL, conjunctivae normal, anicteric sclerae EOM intact bilaterally ENMT: external ear and nose normal, oropharynx normal Neck: normal visual inspection Respiratory: normal respiratory effort, lungs clear to auscultation Cardiovascular: Rate/Rhythm: regular rate Gastrointestinal (Abdomen): normal bowel sounds, soft, nontender, no hepatosplenomegaly Musculoskeletal: Head/Neck/Chest: normocephalic and head atraumatic Neurologic: PERRL, EOMI, accommodation nl, no face palsy, no dysarthria moves all extremities Psychiatric: A+Ox3, euthymic affect Results & Data Results & Data ([facility]) Vital Signs (Past 12 Hours) Vital Signs Temp Pulse Resp BP BP Pulse Ox 10/09/20 09:30 85 117/69 10/09/20 07:48 36.8 C 85 16 103/68 95 10/08/20 22:55 36.6 C 106 H 16 141/76 H 97
[2020-10-09 10:32] LABS: Basophils # (auto) 0.01 K/uL (0-0.2); Basophils % (auto) 0.1 %; Eosinophils # (auto) 0.11 K/uL (0-0.5); Eosinophils % (auto) 1.1 %; Hematocrit (blood only) 30.3 % (37-47); Hemoglobin 9.7 g/dL (12.0-16.0); Immature Granulocytes # (auto) 0.13 K/uL (0.00-0.02); Immature Granulocytes % (auto) 1.2 %; Lymphocytes % (auto) 19.2 %; Mean Corpuscular Hemoglobin 27.5 pg (25-34); Mean Corpuscular Volume 85.8 fL (80-100); Mean Platelet Volume 9.2 fL (7.4-10.4); Monocytes # (auto) 1.07 K/uL (0.11-0.59); Monocytes % (auto) 10.3 %; Neutrophils # (auto) 7.09 K/uL (1.4-6.5); Neutrophils % (auto) 68.1 %; Platelet Count 362 K/uL (130-400); RDW Coefficient of Variation 16.4 % (11.5-14.5); RDW Standard Deviation 50.9 fL (36.4-46.3); Red Blood Count 3.53 M/uL (4.2-5.4); White Blood Count 10.41 K/uL (4.8-10.8)
--- NOTE | 2020-10-09 11:06 | Orthopedic Progress Note ---
Date of Service October 09, 2020 Assessment & Plan (1) Myelopathy concurrent with and due to spinal stenosis of thoracic region: Admission and Anticipated Discharge Date Admission Date: October 04, 2020 At this time we will continue physical therapy occupational therapy and await transfer to rehab. Subjective Patient is comfortable. Feels her leg symptoms are improving. Still requires significant help with ambulation. Physical Exam Physical Exam: On exam she is reasonable plantar flexion dorsiflexion appears comfortable. Results & Data ([facility]) Vital Signs (Past 12 Hours) Vital Signs Temp Pulse Resp BP BP Pulse Ox 10/09/20 09:30 85 117/69 10/09/20 07:48 36.8 C 85 16 103/68 95
[2020-10-09] MEDS: ALUMINUM/MAGNESIUM SUSP 30 ML UDC PO PRN (11:53)
[2020-10-09] MEDS: DULoxetine HCL 30 MG CAP PO SCH (20:58)
[2020-10-09] MEDS: EZETIMIBE/SIMVASTATIN 10/20 TAB PO SCH (20:58)
[2020-10-09] MEDS: lamoTRIgine 25 MG TAB PO SCH (20:58)
[2020-10-09] MEDS: DONEPEZIL HCL 10 MG TAB PO SCH (20:58)
[2020-10-09] MEDS: traZODone HCL 50 MG TAB PO SCH (20:58)
[2020-10-09] MEDS: MONTELUKAST SODIUM 10 MG TABLET PO SCH (20:58)
[2020-10-09] MEDS: INSULIN GLARGINE SOLOSTAR 100 UNITS/ML 3 ML PEN SC SCH (21:00)
[2020-10-09] MEDS: DOCUSATE SODIUM/SENNA 50/8.6MG TAB PO SCH (21:07)
[2020-10-10] MEDS: oxyCODONE HCL IR 5 MG TAB (IMMEDIATE RELEASE) PO PRN ×5 (02:40→23:38)
[2020-10-10] MEDS: ACETAMINOPHEN 500 MG TAB PO PRN ×2 (02:41→11:25)
[2020-10-10] MEDS: LEVOTHYROXINE SODIUM 100 MCG TABLET PO SCH (06:11)
[2020-10-10] MEDS: ESOMEPRAZOLE PO SCH (07:04)
--- NOTE | 2020-10-10 08:43 | Hospitalist Progress Note ---
Date of Service October 10, 2020 Assessment & Plan (1) Myelopathy concurrent with and due to spinal stenosis of thoracic region: status post spinal surgery -"This is a 74-year-old female who has significant past medical history of T2DM, HTN, HLD, asthma, HUNTER, hypothyroidism, depression who presents to ED secondary to worsening lower extremity weakness and fall prior to arrival. Of significance patient has been following with Dr. Pantoja secondary to chronic low back pain with radiation to bilateral lower extremities. -MRI Thoracic spine: Interval development of diffuse disc bulge with superimposed large central disc extrusion at T9-T10 with superior subligamentous migration. These findings result in severe narrowing of the central canal with suspected cord compression and mild cord edema." -s/p spinal surgery on 10/06/[address] Pantoja (#1 T9-T10 T10-11 decompression with bilateral medial facetectomies. #2 posterior spinal fusion T8-T9 T9-T10 T10-T11. #3 placement of posterior se)gmental instrumentation T8-T11. This includes connectors. #4 placement locally harvested morselized autograft in the posterior lateral gutters. #5 placement of his collagen sponge, master graft in the posterior gutters from T8-T11. -patient's SHADIA drain was removed on 10/08/2020 (2) Anemia: Acute Blood loss anemia secondary to surgery -admission Hemoglobin/Hematocrit 10.9 and 34.5, surgery on 10/05/2020 as above -SHADIA drain Management as per orthopedic service -Hgb 8.8 on 10/06/2020 -Hbg 8.5 on 10/07/2020 - because of relatively unchanged Hgb in past 2 days despite this being lower than her baseline, the patient does not appear to need a blood transfusion at this time. -Hgb improved to 9.6 on 10/09/2020 without any blood transfusions given on this hospital stay (3) Diabetes mellitus, type II: -HbA1c 6.3 on 10/05/2020 -at home , patient uses metformin -currently while in the hospital, the pharmacy glycemic control is managing the blood sugars (4) Hypertension: -Last echocardiogram 11/2019 EF 58%, grade 1 diastolic dysfunction, mild aortic valve sclerosis. -resumed home dose lisinopril 40 mg daily and Lasix 40 mg daily starting on 10/06/2020 (5) Dyslipidemia: -on statin, zetia GERD (Gastroesophageal reflux disease) -and acid reflux medications (6) Hypothyroidism: -continue home dose levothyroxine (7) Asthma: -continue symbicort -no current wheezing, albuterol prn for shortness of breath or wheezing (8) Sleep apnea: -patient's Bipap setting are 08/19 -use as per patient's preferences History of Seizure in the past -continue Lamotrigine (9) DVT prophylaxis: -SCD/TEDS, aspirin 81 mg daily as per orthopedics family medical doctor is Dr. Keyes Admission and Anticipated Discharge Date Admission Date: October 04, 2020 Subjective Patient seen and examined while eating the breakfast. No acute distress. No acute symptoms. She denies acute back pain. patient denies other symptoms on review of symptoms in regards to breathing, the chest, the abdomen, or dizziness, or headache Review of Systems Review of Systems: All systems reviewed & are unremarkable except as noted in Subjective Physical Exam Constitutional: cooperative and comfortable Eyes: PERRL, conjunctivae normal, anicteric sclerae EOM intact bilaterally ENMT: external ear and nose normal, oropharynx normal Neck: normal visual inspection Respiratory: normal respiratory effort, lungs clear to auscultation Cardiovascular: Rate/Rhythm: regular rate Gastrointestinal (Abdomen): normal bowel sounds, soft, nontender, no hepatosplenomegaly Musculoskeletal: Head/Neck/Chest: normocephalic and head atraumatic Neurologic: PERRL, EOMI, accommodation nl, no face palsy, no dysarthria moves all extremities Psychiatric: A+Ox3, euthymic affect Results & Data Results & Data ([facility]) Vital Signs (Past 12 Hours) Vital Signs Temp Pulse Pulse Resp BP Pulse Ox 10/10/20 07:34 36.5 C 86 18 131/80 96 10/09/20 22:16 36.7 C 83 20 98/59 L 96
[2020-10-10] MEDS: buPROPion SR 100 MG TABCR PO SCH ×2 (09:18→21:12)
[2020-10-10] MEDS: FUROSEMIDE 40 MG TAB PO SCH (09:18)
[2020-10-10] MEDS: DOCUSATE SODIUM 100 MG CAP PO SCH ×2 (09:18→21:13)
[2020-10-10] MEDS: metFORMIN HCL 500 MG TAB PO SCH ×2 (09:18→18:18)
[2020-10-10] MEDS: DULoxetine HCL 60 MG CAP PO SCH (09:18)
[2020-10-10] MEDS: lisinopril 40 MG TAB PO SCH (09:18)
[2020-10-10] MEDS: FAMOTIDINE 20 MG TAB PO SCH ×2 (09:18→21:13)
[2020-10-10] MEDS: FLUTICASONE/VILANTEROL 200/25MCG 14 PUFFS/INHALER INH SCH (09:18)
[2020-10-10] MEDS: ASPIRIN 81 MG ECTAB PO SCH (09:18)
[2020-10-10] MEDS: INSULIN ASPART 100 UNITS/ML 3 ML PEN SC SCH ×4 (09:19→21:11)
--- NOTE | 2020-10-10 10:19 | Pharmacy Report ---
Pharmacy Glycemic Short Note 2 - Date of Service October 10, 2020 - Glycemic Short BSG Results (Last 24 hours): 10/09/20 10/09/20 10/09/20 12:16 16:56 20:02 POC Glucose 148 H 101 H 137 H 10/10/20 08:16 POC Glucose 123 H OUTPATIENT ANTIDIABETIC REGIMEN: * Metformin 1 g PO BIDM * HbA1c: 6.3% (10/05/20) ASSESSMENT: 10/10 * BSGs well controlled yesterday, 130, 148, 101, and 137 mg/dL * Patient received 30 units of insulin yesterday (15 of basal and 15 of bolus) in addition to outpatient dose of metformin 1 g PO BIDM * Fasting BSG of 123 mg/dL this morning 10/08 * Cheyanne received 28 units of insulin yesterday (10 units basal and 18 units bolus) * Fasting BSG elevated today at 164 mg/dL. Will slightly increase basal insulin and re-schedule to be administered with dinner today instead of at HS. * Post prandial BSGs were well-controlled yesterday, therefore no change will be made. PLAN FOR INPATIENT GLYCEMIC CONTROL: * Metformin 1 g PO BIDM * Basal insulin - continue * Lantus 15 units SC HS * Bolus insulin - continue * NovoLog per scale ACHS or Q6hrs while NPO * Goal Range: Low 110 mg/dL - High 140 mg/dL * Correction Factor: 25 mg/dL/unit * Nutritional / Prandial insulin per carb ratio of 1 unit per 8 grams CHO consumed RECOMMENDATIONS FOR DISCHARGE: * Patient's HbA1C is excellently controlled. * Goal HbA1C = < 7% * current HbA1C 6.3% * Continue current home regimen.
--- NOTE | 2020-10-10 12:19 | Orthopedic Progress Note ---
Date of Service October 10, 2020 Assessment & Plan (1) Myelopathy concurrent with and due to spinal stenosis of thoracic region: Admission and Anticipated Discharge Date Admission Date: October 04, 2020 This time we will continue occupational therapy physical therapy anticipate discharge to rehab tomorrow. Subjective Back pain controlled no leg pain feels that her walking is improving Physical Exam Physical Exam: On exam she appears comfortable is good strength testing lower extremities. Results & Data ([facility]) Vital Signs (Past 12 Hours) Vital Signs Temp Pulse Resp BP Pulse Ox 10/10/20 07:34 36.5 C 86 18 131/80 96
[2020-10-10] MEDS: ALUMINUM/MAGNESIUM SUSP 30 ML UDC PO PRN (15:03)
[2020-10-10] MEDS: INSULIN GLARGINE SOLOSTAR 100 UNITS/ML 3 ML PEN SC SCH (21:11)
[2020-10-10] MEDS: lamoTRIgine 25 MG TAB PO SCH (21:12)
[2020-10-10] MEDS: DULoxetine HCL 30 MG CAP PO SCH (21:12)
[2020-10-10] MEDS: EZETIMIBE/SIMVASTATIN 10/20 TAB PO SCH (21:12)
[2020-10-10] MEDS: DONEPEZIL HCL 10 MG TAB PO SCH (21:13)
[2020-10-10] MEDS: traZODone HCL 50 MG TAB PO SCH (21:13)
[2020-10-10] MEDS: MONTELUKAST SODIUM 10 MG TABLET PO SCH (21:13)
[2020-10-10] MEDS: DOCUSATE SODIUM/SENNA 50/8.6MG TAB PO SCH (21:14)
[2020-10-11] MEDS: oxyCODONE HCL IR 5 MG TAB (IMMEDIATE RELEASE) PO PRN ×5 (03:49→22:13)
[2020-10-11] MEDS: LEVOTHYROXINE SODIUM 100 MCG TABLET PO SCH (06:20)
[2020-10-11] MEDS: ESOMEPRAZOLE PO SCH (08:35)
[2020-10-11] MEDS: lisinopril 40 MG TAB PO SCH (08:36)
[2020-10-11] MEDS: FLUTICASONE/VILANTEROL 200/25MCG 14 PUFFS/INHALER INH SCH (08:36)
[2020-10-11] MEDS: ASPIRIN 81 MG ECTAB PO SCH (08:36)
[2020-10-11] MEDS: DULoxetine HCL 60 MG CAP PO SCH (08:36)
[2020-10-11] MEDS: FUROSEMIDE 40 MG TAB PO SCH (08:36)
[2020-10-11] MEDS: FAMOTIDINE 20 MG TAB PO SCH ×2 (08:36→20:41)
[2020-10-11] MEDS: DOCUSATE SODIUM 100 MG CAP PO SCH ×2 (08:37→20:38)
[2020-10-11] MEDS: buPROPion SR 100 MG TABCR PO SCH ×2 (08:37→20:42)
[2020-10-11] MEDS: metFORMIN HCL 500 MG TAB PO SCH ×2 (08:37→18:08)
[2020-10-11] MEDS: INSULIN ASPART 100 UNITS/ML 3 ML PEN SC SCH ×4 (08:39→21:45)
--- NOTE | 2020-10-11 08:55 | Hospitalist Progress Note ---
Date of Service October 11, 2020 Assessment & Plan (1) Myelopathy concurrent with and due to spinal stenosis of thoracic region: status post spinal surgery -"This is a 74-year-old female who has significant past medical history of T2DM, HTN, HLD, asthma, HUNTER, hypothyroidism, depression who presents to ED secondary to worsening lower extremity weakness and fall prior to arrival. Of significance patient has been following with Dr. Pantoja secondary to chronic low back pain with radiation to bilateral lower extremities. -MRI Thoracic spine: Interval development of diffuse disc bulge with superimposed large central disc extrusion at T9-T10 with superior subligamentous migration. These findings result in severe narrowing of the central canal with suspected cord compression and mild cord edema." -s/p spinal surgery on 10/06/[address] Pantoja (#1 T9-T10 T10-11 decompression with bilateral medial facetectomies. #2 posterior spinal fusion T8-T9 T9-T10 T10-T11. #3 placement of posterior se)gmental instrumentation T8-T11. This includes connectors. #4 placement locally harvested morselized autograft in the posterior lateral gutters. #5 placement of his collagen sponge, master graft in the posterior gutters from T8-T11. -patient's SHADIA drain was removed on 10/08/2020 (2) Anemia: Acute Blood loss anemia secondary to surgery -admission Hemoglobin/Hematocrit 10.9 and 34.5, surgery on 10/05/2020 as above -SHADIA drain Management as per orthopedic service -Hgb 8.8 on 10/06/2020 -Hbg 8.5 on 10/07/2020 - because of relatively unchanged Hgb in past 2 days despite this being lower than her baseline, the patient does not appear to need a blood transfusion at this time. -Hgb improved to 9.6 on 10/09/2020 without any blood transfusions given on this hospital stay (3) Diabetes mellitus, type II: -HbA1c 6.3 on 10/05/2020 -at home , patient uses metformin -currently while in the hospital, the pharmacy glycemic control is managing the blood sugars (4) Hypertension: -Last echocardiogram 11/2019 EF 58%, grade 1 diastolic dysfunction, mild aortic valve sclerosis. -resumed home dose lisinopril 40 mg daily and Lasix 40 mg daily starting on 10/06/2020 (5) Dyslipidemia: -on statin, zetia GERD (Gastroesophageal reflux disease) -and acid reflux medications (6) Hypothyroidism: -continue home dose levothyroxine (7) Asthma: -continue symbicort -no current wheezing, albuterol prn for shortness of breath or wheezing (8) Sleep apnea: -patient's Bipap setting are / -use as per patient's preferences History of Seizure in the past -continue Lamotrigine (9) DVT prophylaxis: -SCD/TEDS, aspirin 81 mg daily as per orthopedics family medical doctor is Dr. Keyes -awaiting discharge by orthopedic service as they are seeking for patient to go to a physical rehabilitation facility, case management following Admission and Anticipated Discharge Date Admission Date: October 04, 2020 Subjective Patient seen and examined while eating breakfast. Patient reports left sided back pain today. Patient was given pain medication by nurse and milk of magnesia. Patient reports last bowel movement was 2 days ago. no acute tenderness on palpation of the back. patient denies other symptoms on review of systems. continues to be on room air and no other symptoms on review of systems. Review of Systems Review of Systems: All systems reviewed & are unremarkable except as noted in Subjective Physical Exam Constitutional: cooperative and comfortable Eyes: PERRL, conjunctivae normal, anicteric sclerae EOM intact bilaterally ENMT: external ear and nose normal, oropharynx normal Neck: normal visual inspection Respiratory: normal respiratory effort, lungs clear to auscultation Cardiovascular: Rate/Rhythm: regular rate Gastrointestinal (Abdomen): normal bowel sounds, soft, nontender, no hepatosplenomegaly Musculoskeletal: Head/Neck/Chest: normocephalic and head atraumatic no acute tenderness on palpation of the back Neurologic: PERRL, EOMI, accommodation nl, no face palsy, no dysarthria moves all extremities Psychiatric: A+Ox3, euthymic affect Results & Data Results & Data ([facility]) Vital Signs (Past 12 Hours) Vital Signs Temp Pulse Resp BP BP Pulse Ox 10/11/20 08:08 36.6 C 91 H 16 118/62 93 10/10/20 23:25 36.7 C 90 14 117/65 98
[2020-10-11] MEDS ORDERED: FLUCONAZOLE 50 MG TAB PO ONE (09:42)
--- NOTE | 2020-10-11 09:45 | Discharge Summary ---
Date of Service October 11, 2020 Admission HPI Per Admitting Provider 74 year old with worsening leg function past several weeks now unable to ambulate Principal Diagnosis Thoracic myelopathy Discharge Data Allergies Allergy/AdvReac Type Severity Reaction Status Date / Time miconazole Allergy Intermediate SEVERE Verified 10/03/20 20:42 BURNING ITCHING morphine Allergy Mild ITCHING Verified 10/03/20 20:42 erythromycin base Allergy Unknown Verified 10/03/20 20:42 codeine AdvReac Mild DYSPEPSIA Verified 10/03/20 20:42 doxycycline AdvReac Mild GASTRITIS Verified 10/03/20 20:42 Macrolide Antibiotics AdvReac Mild DYSPEPSIA Verified 10/03/20 20:42 (TOLERATED Z-PACK) Consultations 10/04/20 13:45 ED Decision to Admit Stat 10/04/20 17:36 Consult Anesthesiology Routine Consult Internal Medicine Routine 10/04/20 20:06 Consult Behavioral Health Liaison Routine 10/05/20 15:06 Consult Case Management - Discharge Planning Routine Procedures Performed Operation Date: 10/05/20 10:05 Actual Procedures p T9-T11 Thoracic Decompression and Fusion(Not Applicable) - Hu Pantoja DO Ordered Studies 10/05/20 10:05 FL fluoroscopy <1hr Routine FL thoracic spine 2V Routine Hospital Course (1) Myelopathy concurrent with and due to spinal stenosis of thoracic region: Patient underwent a thoracic decompression fusion tolerated this well was taken to orthopedic for postop bleed. She progressed appropriately throughout her postoperative course SHADIA drain decreasing appropriately. Leg symptoms steadily improving. Subsequently she was discharged to rehab. Discharge orders instructions from the chart for further review. Total Time Total Time Spent Total Time Spent (In Minutes): 20 minutes Discharge Plan Discharge Items Patient Disposition: Transfer Inpatient Rehab Fac Reason For Visit: THORACIC MYELOPATHY Discharge Diagnosis: Thoracic myelopathy Activity: As commented below Non-emergency contact: Primary Care Provider Call non-emergency contact if: you have any medication questions Follow-up/Referrals: Papo Keyes MD [Primary Care Provider] - Diet: Regular Addtl Attending Provider Instructions: ACTIVITY RECOMMENDATIONS: SELF CARE INSTRUCTIONS AFTER THORACIC/LUMBAR FUSIONS 1. You may walk to your tolerance. It is good exercise for your legs and back. Expect some back and intermittent leg aches and pains. 2. You may perform "counter-top" level activities (make a sandwich, marcia with a project, etc.). 3. No bending or lifting of more than 10 pounds or back twisting of any nature (roll like a log when turning in bed). 4. You may ride in a car for 20-30 minutes at a time. No driving until after your first visit with your doctor. 5. Frequent changes of position and restricting sitting to 30 minutes at a time will help limit the amount of back spasms and stiffness you may experience. 6. You may discontinue the use of ambulatory aids (cane, crutches, etc.) once your strength and confidence allow. 7. You may manager of customer billing the shower and let water strike your incision when you arrive home at least once daily. Do not take a tub bath, sit in a hot tub or go into a swimming pool until after your first recheck in the office. SPECIAL CARE INSTRUCTIONS: VERY IMPORTANT TO READ AND REVIEW A. Your surgical incision has been closed with a cosmetic suture under the skin that will dissolve in about 6 weeks. In 14 days, you can use a pair of clean scissors and cut the suture that is left outside of the skin at the ends of your incision. 1. The small skin tapes can be removed 7 days after surgery if they have not fallen off by that point. 2. You may keep the wound open to air as much as possible to promote healing after post-op day number 5 unless told otherwise by your doctor. 3. If you think the wound looks like it is becoming infected (redness or worsening drainage) and/or you are experiencing fever, chill or worsening back pain and muscle spasms, contact the office so that we may evaluate you as soon as possible. B. Complications are uncommon, but please contact us if you have any signs or symptoms of: 1. wound infection (fever higher than 102.5 degrees F, redness, separation of wound, drainage, or increasing pain from the incision) 2. blood clots in legs (pain, swelling, redness and warmth in legs) 3. urinary tract infection (fever higher than 102.5 degrees F, burning upon urination or increased frequency of urination) 4. nerve problems (inability to walk on your toes or heels, numbness, loss of bowel or bladder control) 5. any other symptoms that concern you C. Please call the office at if you have any concerns or questions about your operation or recovery. D. No smoking! Smoking drastically decreases the chance of a solid fusion. E. Do not take any anti-inflammatory medications (Indocin, Advil, Motrin, Aspirin, Naprosyn, etc.) as these may inhibit the chance of a solid fusion. Tylenol is okay to take for pain. MANAGING PAIN AFTER SPINAL SURGERY 1. Narcotic medication is intended for short-term use and will be provided for surgical pain. Surgical pain usually lasts for a period of 4-6 weeks. Narcotic medication includes Percocet, Vicodin, Darvocet, Tylenol #3 or Lortab. 2. Longer-term pain is more appropriately treated with non-narcotic medication such as Tylenol ES. 3. Muscle spasm is not appropriately treated with narcotics. Muscle relaxers such as Soma, Flexeril or Skelaxin can be used along with Tylenol ES. 4. Remember that we all live with some "aches and pains". This is not unusual or uncommon after an injury or as we get older. a. Back pain is expected and may include muscle spasms for 4 to 6 weeks after surgery. The pain should gradually improve. If the pain worsens for no apparent reason, please contact the office. b. Intermittent leg pain may also be experienced and should not be concerned about unless it worsens for no apparent reason. If so, please contact the office. 5. We will provide appropriate medication within the normal guidelines of their prescribed use. We will also be very cautious and aware of potential abuse and extended duration of patients' medication needs. a. Pain medications are for your comfort and to assist with sleep and rest so that the tissue can heal. They are not provided in order to return to normal activity and should not be used through the day. To do so or worsening pain at night can result from ongoing tissue damage and development of tolerance to the prescribed medicine. 6. Please allow 2-3 days to process refills. Prescriptions will not be mailed but must be picked up at the office. FOLLOW UP VISIT: Keep your scheduled follow-up appointment. Any questions, please call the office at . Pending Studies at Discharge: No Stand-Alone Forms: My [facility] Skilled Items Patient informed of condition?: Yes DNR: No Discharge Level of Care: Acute rehab Communicable Disease: No Discharge Prognosis: Improving Lines: None Urinary Catheter: No Medications and DC Order Prescriptions: New tramadol 50 mg tablet 50 mg PO Q6H PRN (Reason: pain, moderate) Qty: 20 RF: 0 oxycodone 5 mg tablet 5 mg PO Q6H PRN (Reason: pain, severe) Qty: 20 RF: 0 Continued famotidine [Pepcid] 40 mg tablet 40 mg PO BID RF: 0 magnesium oxide 400 mg magnesium capsule 400 mg PO .COMPLEX Qty: 30 RF: 3 furosemide 40 mg tablet 40 mg PO DAILY Qty: 90 RF: 2 chlorpheniramine-phenylephrine 4-10 mg tablet 1 tab PO Q4H PRN (Reason: Congestion) RF: 0 bupropion HCl [Wellbutrin SR] 100 mg Tablet Sustained-Release 12 Hr 100 mg PO BID RF: 0 duloxetine [Cymbalta] 30 mg Capsule,Delayed Release(Dr/Ec) 30 mg PO QPM RF: 0 duloxetine [Cymbalta] 60 mg Capsule,Delayed Release(Dr/Ec) 60 mg PO QAM RF: 0 celecoxib [Celebrex] 200 mg Capsule 200 mg PO QAM RF: 0 lamotrigine [Lamictal] 150 mg Tablet 150 mg PO HS RF: 0 donepezil [Aricept] 10 mg Tablet 10 mg PO HS RF: 0 aspirin [Aspir-81] 81 mg Tablet,Delayed Release (Dr/Ec) 81 mg PO QAM RF: 0 acetaminophen [Tylenol Arthritis Pain] 650 mg Tablet Extended Release 2 tab PO Q8H PRN (Reason: Pain) RF: 0 levothyroxine 100 mcg Tablet 100 mcg PO QAM RF: 0 metformin 1,000 mg Tablet 1,000 mg PO BID RF: 0 esomeprazole magnesium [Nexium] 40 mg Capsule,Delayed Release(Dr/Ec) 40 mg PO QAM RF: 0 montelukast [Singulair] 10 mg Tablet 10 mg PO HS RF: 0 fluticasone propionate [Flonase Allergy Relief] 50 mcg/actuation [place],Suspension 2 spray INTRANASAL HS RF: 0 vitamin E 400 unit Capsule 400 unit PO HS RF: 0 Refresh Liquigel 1 % Drops, Liquid Gel 2 drp OPHTHALMIC (EYE) BID PRN (Reason: Dry Eyes) RF: 0 oxycodone 5 mg Tablet 7.5 mg PO Q6H PRN (Reason: Pain) RF: 0 Multivitamin 50 Plus Tablet 1 tab PO QAM RF: 0 cyclobenzaprine 5 mg Tablet 5 mg PO Q6H PRN (Reason: Pain) RF: 0 ezetimibe-simvastatin [Vytorin 10-20] 10-20 mg Tablet 1 tab PO HS RF: 0 phenylephrine HCl [Sudafed PE] 10 mg Tablet 10 mg PO Q4H PRN (Reason: Nasal Congestion) RF: 0 folic acid 0.8 mg Capsule 0.8 mg PO QAM RF: 0 cholecalciferol (vitamin D3) [Vitamin D3] 1,000 unit Tablet 1,000 unit PO QAM RF: 0 budesonide-formoterol [Symbicort] 160-4.5 mcg/actuation Hfa Aerosol Inhaler 2 puff INHALATION BID RF: 0 omega [id number]-prn-fish oil [Fish Oil] 1,000 mg (120 mg-180 mg) Capsule 1 cap PO BID RF: 0 coQ10 (ubiquinol) 100 mg Capsule 100 mg PO BID RF: 0 memantine [Namenda XR] 14 mg Capsule,Sprinkle,Er 24hr 14 mg PO QAM RF: 0 albuterol sulfate 90 mcg/actuation Aerosol Powdr Breath Activated 2 inh INHALATION Q4H PRN (Reason: SHORT OF BREATH) RF: 0 Caltrate + D3 Plus Minerals 300 mg-800 unit -25 mg-0.5 mg Tablet 1 tab PO BID RF: 0 trazodone 50 mg tablet 25 mg PO HS RF: 0 lisinopril 40 mg tablet 40 mg PO DAILY RF: 0 Discharge Orders: Discharge Order (Routine); Ordered 10/11/20 Ordered By: Hu Booker/Other Patient Handouts: Managing Type 2 Diabetes Admission Data Admit Date/Time: 10/04/20 14:55 Attending Provider: Hu Pantoja Admit Provider: Hu Pantoja Primary Care Provider: Papo Keyes Other Providers: Hu Pantoja ; Srikanth Rahman ; Rajiv Oliveira ; Francisco J Leal ; [facility]
[2020-10-11] MEDS: ACETAMINOPHEN 500 MG TAB PO PRN ×2 (14:12→22:13)
[2020-10-11] MEDS: EZETIMIBE/SIMVASTATIN 10/20 TAB PO SCH (20:37)
[2020-10-11] MEDS: DONEPEZIL HCL 10 MG TAB PO SCH (20:38)
[2020-10-11] MEDS: lamoTRIgine 25 MG TAB PO SCH (20:39)
[2020-10-11] MEDS: DULoxetine HCL 30 MG CAP PO SCH (20:40)
[2020-10-11] MEDS: traZODone HCL 50 MG TAB PO SCH (20:40)
[2020-10-11] MEDS: MONTELUKAST SODIUM 10 MG TABLET PO SCH (20:42)
[2020-10-11] MEDS: DOCUSATE SODIUM/SENNA 50/8.6MG TAB PO SCH (20:43)
[2020-10-11] MEDS: INSULIN GLARGINE SOLOSTAR 100 UNITS/ML 3 ML PEN SC SCH (22:10)
[2020-10-12] MEDS: oxyCODONE HCL IR 5 MG TAB (IMMEDIATE RELEASE) PO PRN ×3 (05:29→13:35)
[2020-10-12] MEDS: LEVOTHYROXINE SODIUM 100 MCG TABLET PO SCH (05:30)
[2020-10-12] MEDS: ESOMEPRAZOLE PO SCH (05:30)
--- NOTE | 2020-10-12 07:58 | Hospitalist Progress Note ---
Date of Service October 12, 2020 Assessment & Plan (1) Myelopathy concurrent with and due to spinal stenosis of thoracic region: status post spinal surgery -"This is a 74-year-old female who has significant past medical history of T2DM, HTN, HLD, asthma, HUNTER, hypothyroidism, depression who presents to ED secondary to worsening lower extremity weakness and fall prior to arrival. Of significance patient has been following with Dr. Pantoja secondary to chronic low back pain with radiation to bilateral lower extremities. -MRI Thoracic spine: Interval development of diffuse disc bulge with superimposed large central disc extrusion at T9-T10 with superior subligamentous migration. These findings result in severe narrowing of the central canal with suspected cord compression and mild cord edema." -s/p spinal surgery on 10/06/[address] Pantoja (#1 T9-T10 T10-11 decompression with bilateral medial facetectomies. #2 posterior spinal fusion T8-T9 T9-T10 T10-T11. #3 placement of posterior se)gmental instrumentation T8-T11. This includes connectors. #4 placement locally harvested morselized autograft in the posterior lateral gutters. #5 placement of his collagen sponge, master graft in the posterior gutters from T8-T11. -patient's SHADIA drain was removed on 10/08/2020 (2) Anemia: Acute Blood loss anemia secondary to surgery -admission Hemoglobin/Hematocrit 10.9 and 34.5, surgery on 10/05/2020 as above -SHADIA drain Management as per orthopedic service -Hgb 8.8 on 10/06/2020 -Hbg 8.5 on 10/07/2020 - because of relatively unchanged Hgb in past 2 days despite this being lower than her baseline, the patient does not appear to need a blood transfusion at this time. -Hgb improved to 9.6 on 10/09/2020 without any blood transfusions given on this hospital stay (3) Diabetes mellitus, type II: -HbA1c 6.3 on 10/05/2020 -at home , patient uses metformin -currently while in the hospital, the pharmacy glycemic control is managing the blood sugars. but patient can resume home dose metformin when discharged by orthopedics team (4) Hypertension: -Last echocardiogram 11/2019 EF 58%, grade 1 diastolic dysfunction, mild aortic valve sclerosis. -resumed home dose lisinopril 40 mg daily and Lasix 40 mg daily starting on 10/06/2020 (5) Dyslipidemia: -on statin, zetia GERD (Gastroesophageal reflux disease) -and acid reflux medications (6) Hypothyroidism: -continue home dose levothyroxine (7) Asthma: -continue symbicort -no current wheezing, albuterol prn for shortness of breath or wheezing (8) Sleep apnea: -patient's Bipap setting are 11/5 -use as per patient's preferences History of Seizure in the past -continue Lamotrigine (9) DVT prophylaxis: -SCD/TEDS, aspirin 81 mg daily as per orthopedics family medical doctor is Dr. Keyes disposition: patient is under orthopedic surgery service as the primary team. apparently patient was denied insurance authorization for going to a physical therapy center based on employment evaluator/case manager notes. Notes that employment evaluator/case manager are trying to offer patient physical therapy with SNF center. On my exam on 10/12/2020, patient reports she would like to consider employment evaluator/case manager options versus going home. Admission and Anticipated Discharge Date Admission Date: October 04, 2020 Subjective disposition: patient is under orthopedic surgery service as the primary team. apparently patient was denied insurance authorization for going to a physical therapy center based on employment evaluator/case manager notes. Notes that employment evaluator/case manager are trying to offer patient physical therapy with SNF center. On my exam on 10/12/2020, patient reports she would like to consider employment evaluator/case manager options versus going home. Patient denies acute pain during exam. no distress. she is continuing to breath on room air. she denies other symptoms on review of systems. She wears the SCDs when on the bed Review of Systems Review of Systems: All systems reviewed & are unremarkable except as noted in Subjective Physical Exam Constitutional: cooperative and comfortable Eyes: PERRL, conjunctivae normal, anicteric sclerae EOM intact bilaterally ENMT: external ear and nose normal, oropharynx normal Neck: normal visual inspection Respiratory: normal respiratory effort, lungs clear to auscultation Cardiovascular: Rate/Rhythm: regular rate Gastrointestinal (Abdomen): normal bowel sounds, soft, nontender, no hepatosplenomegaly Musculoskeletal: Head/Neck/Chest: normocephalic and head atraumatic Neurologic: PERRL, EOMI, accommodation nl, no face palsy, no dysarthria moves all extremities Psychiatric: A+Ox3, euthymic affect Results & Data Results & Data ([facility]) Vital Signs (Past 12 Hours) Vital Signs Temp Pulse Resp BP Pulse Ox 10/11/20 23:40 36.7 C 89 18 106/59 L 96
[2020-10-12] MEDS: lisinopril 40 MG TAB PO SCH (09:22)
[2020-10-12] MEDS: FLUTICASONE/VILANTEROL 200/25MCG 14 PUFFS/INHALER INH SCH (09:22)
[2020-10-12] MEDS: metFORMIN HCL 500 MG TAB PO SCH (09:22)
[2020-10-12] MEDS: FUROSEMIDE 40 MG TAB PO SCH (09:22)
[2020-10-12] MEDS: ASPIRIN 81 MG ECTAB PO SCH (09:22)
[2020-10-12] MEDS: buPROPion SR 100 MG TABCR PO SCH (09:22)
[2020-10-12] MEDS: DULoxetine HCL 60 MG CAP PO SCH (09:22)
[2020-10-12] MEDS: DOCUSATE SODIUM 100 MG CAP PO SCH (09:22)
[2020-10-12] MEDS: FAMOTIDINE 20 MG TAB PO SCH (09:22)
[2020-10-12] MEDS: INSULIN ASPART 100 UNITS/ML 3 ML PEN SC SCH ×2 (09:24→13:29)
--- NOTE | 2020-10-12 09:24 | Orthopedic Progress Note ---
Date of Service October 12, 2020 Assessment & Plan (1) Myelopathy concurrent with and due to spinal stenosis of thoracic region: Admission and Anticipated Discharge Date Admission Date: October 04, 2020 This time she has been denied rehab despite struggling with thoracic myelopathy and being a perfect candidate in my opinion she is not comfortable going to a SNF and subsequently will be discharged home with home health. Subjective Patient's back pain controlled leg symptoms improving she is tolerating ambulation with a walker. Physical Exam Physical Exam: Patient seen at the bedside is good strength testing dressing in place. Results & Data ([facility]) Vital Signs (Past 12 Hours) Vital Signs Temp Pulse Resp BP BP Pulse Ox 10/12/20 08:10 36.7 C 94 H 18 101/63 94 10/11/20 23:40 36.7 C 89 18 106/59 L 96
[2020-10-12] MEDS: ACETAMINOPHEN 500 MG TAB PO PRN (13:35)
[2020-10-12] MEDS: ALUMINUM/MAGNESIUM SUSP 30 ML UDC PO PRN (15:28)
== END 2020-10-12 16:04 | disposition home health service (06) | DRG 460 ==
LOC: ED 12:29 → 3N 14:55

== ENCOUNTER 2022-05-22 02:38 | Inpatient (IN) ==
--- NOTE | 2022-05-22 02:51 | Emergency Department Note ---
History of Present Illness General Chief complaint: Unresponsive Time Seen by Provider: 05/22/22 02:45 Source: patient and EMS Mode of arrival: EMS Limitations: patient cooperation History of Present Illness Provider complaint: Unresponsive This is a 72-year-old female brought in by EMS after called 911 due to concern for patient being unresponsive after having complained of weakness. EMS did call for medical command while in route and at that point time could not obtain any vital signs on the patient, but did have a reassuring blood glucose of 130. Patient was somnolent but arousable and seem to be protecting her airway, they were concerned for significant dehydration they noted clinically as well as patient's reported vomiting and diarrhea. They did place an IV and start IV fluids in route. On arrival here patient was much more awake and alert would answer some questions although minimally. EMS reported patient told them in route that she took extra trazodone between 9-9:30 pm this evening to try and kill herself. Patient has also been taking oxycodone for chronic pain at her sacrum. Patient states she had been constipated last week and took several inmz-zrw-[id number] medications which she believes is why she now has diarrhea. She states she has felt nauseated and so has not been drinking fluids. EMS reports stated patient had called for help walking back to the bathroom because she was weak and he helped lower her to the floor. There was no trauma or injury. Pt seen during a time of high acuity and national emergency pandemic while wearing PPE. Home Medications Medication Instructions Recorded Confirmed Type albuterol sulfate 90 mcg/actuation 2 inh inhalation Q4H PRN SHORT OF 02/13/19 05/22/22 History breath activated powder inhaler BREATH bupropion HCl 100 mg tablet,12 hr 100 mg PO BID 02/13/19 05/22/22 History sustained-release (Wellbutrin SR) celecoxib 200 mg capsule (Celebrex) 200 mg PO QAM 02/13/19 05/22/22 History cholecalciferol (vitamin D3) 25 1,000 unit PO QAM 02/13/19 05/22/22 History mcg (1,000 unit) tablet (Vitamin D3) cyclobenzaprine 5 mg tablet 5 mg PO Q6H PRN Pain 02/13/19 05/22/22 History donepezil 10 mg tablet (Aricept) 10 mg PO HS 02/13/19 05/22/22 History esomeprazole magnesium 40 mg 40 mg PO [facility] 02/13/19 05/22/22 History capsule,delayed release (Nexium) ezetimibe 10 mg-simvastatin 20 mg 1 tab PO 02/13/19 05/22/22 History tablet (Vytorin) fluticasone propionate 50 2 spray intranasal 02/13/19 05/22/22 History mcg/actuation nasal spray,suspension (Flonase Allergy Relief) folic acid 0.8 mg capsule 0.8 mg PO [facility] 02/13/19 05/22/22 History lamotrigine 150 mg tablet 150 mg PO 02/13/19 05/22/22 History (Lamictal) levothyroxine 100 mcg tablet 100 mcg PO [facility] 02/13/19 05/22/22 History memantine 14 mg capsule 14 mg PO [facility] 02/13/19 05/22/22 History sprinkle,extended release 24hr (Namenda XR) metformin 1,000 mg tablet 1,000 mg PO BID 02/13/19 05/22/22 History montelukast 10 mg tablet 10 mg PO 02/13/19 05/22/22 History (Singulair) gqwwzccpbhwl-skkwqdgc-lnxykg 1 tab PO [facility] 02/13/19 05/22/22 History tablet (Multivitamin 50 Plus tablet) vitamin E 268 mg (400 unit) capsule 400 unit PO 02/13/19 05/22/22 History trazodone 50 mg tablet 25 mg PO 11/13/19 05/22/22 History famotidine 40 mg tablet (Pepcid) 40 mg PO BID 04/12/20 05/22/22 History duloxetine 60 mg capsule,delayed 60 mg PO BID 05/19/21 05/22/22 History release (Cymbalta) furosemide 40 mg tablet 40 mg PO DAILY #90 tabs 11/22/21 05/22/22 Rx acetaminophen 650 mg 1,300 mg PO [facility] 01/19/22 05/22/22 History tablet,extended release aspirin 81 mg tablet,delayed 81 mg PO DAILY 01/19/22 05/22/22 History release (Yolis Low Dose Aspirin) buspirone 5 mg tablet 5 mg PO BID 01/19/22 05/22/22 History calcium carbonate 600 mg-vitamin 1 tab PO BID 01/19/22 05/22/22 History D3 20 mcg (800 unit) chewable tablet (Caltrate 600 plus D) cyanocobalamin (vitamin B-12) 1,000 mcg PO DAILY 01/19/22 05/22/22 History 1,000 mcg tablet (Vitamin B-12) fluticasone furoate 200 1 ea inhalation DAILY 01/19/22 05/22/22 History mcg-vilanterol 25 mcg/dose inhalation powder (Breo Ellipta) omega 3-lfw-fhj-fish oil 1,200 mg 1 cap PO BID 01/19/22 05/22/22 History (144 mg-216 mg) capsule (Fish Oil) lisinopril 40 mg tablet 40 mg PO DAILY #90 tabs 04/04/22 05/22/22 Rx L.acidoph-L.rhamn-B.bifidum-B.long 1 tab PO DAILY 05/22/22 05/22/22 History 12.9 mg (2 billion cell) tabletDR (Probiotic Acidophilus Violeta) albuterol sulfate 2.5 mg/3 mL 2.5 mg inhalation DIRECTED PRN 05/22/22 05/22/22 History (0.083 %) solution for nebulization Shortness Of Breath Or Wheezing benzonatate 100 mg capsule 100 mg PO TID PRN Cough 05/22/22 05/22/22 History buprenorphine 20 mcg/hour weekly 1 patch transdermal Q7D 05/22/22 05/22/22 History transdermal patch magnesium oxide 400 mg PO Q OTHER DAY 05/22/22 05/22/22 History ondansetron HCl 4 mg tablet 4 mg PO Q6H PRN NAUSEA/VOMITING 05/22/22 05/22/22 History pregabalin 50 mg capsule (Lyrica) 50 mg PO BID 05/22/22 05/22/22 History Allergies Allergy/AdvReac Type Severity Reaction Status Date / Time miconazole Allergy Intermediate SEVERE Verified 05/22/22 02:54 BURNING ITCHING morphine Allergy Intermediate ITCHING, Verified 05/22/22 02:54 ABD PAIN erythromycin base Allergy Unknown Unknown Verified 05/22/22 02:54 baclofen AdvReac Intermediate NAUSEA/VOMI Verified 05/22/22 02:54 TING clonazepam AdvReac Intermediate PSYCH Verified 05/22/22 02:54 COMPLICATIONS codeine AdvReac Intermediate DYSPEPSIA Verified 05/22/22 02:54 doxycycline AdvReac Intermediate GASTRITIS Verified 05/22/22 02:54 gabapentin AdvReac Intermediate FATIGUE Verified 05/22/22 02:54 Macrolide Antibiotics AdvReac Intermediate DYSPEPSIA Verified 05/22/22 02:54 (TOLERATED Z-PACK) primidone AdvReac Intermediate PSYCH Verified 05/22/22 02:54 COMPLICATIONS Past Med/Surg History Medical History (Updated 05/23/22 @ 03:31 by Delmi Morris DO) Acute hyponatremia Acute kidney injury Anemia Anxiety Asthma STABLE Cyclothymic disorder MOOD DISORDER Depression Diabetes mellitus, type 2 NIDDM Dry eye syndrome Dyspepsia CHRONIC FELT D/T MEDICATION INTERACTIONS (POLYPHARMACY) Fibromyalgia GERD (gastroesophageal reflux disease) OCCASIONAL History of blood transfusion REMOTE POST-OP Hyperlipidemia Hypertension Hyponatremia Hypothyroidism Kidney stones Metabolic acidosis with increased anion gap and accumulation of organic acids Migraine 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 Osteoarthritis Peripheral neuropathy B/L UE/LE Sleep apnea BIPAP Spinal stenosis Ventral hernia Surgical History Fusion of spine LUMBAR X2 H/O foot surgery RIGHT HAMMERTOE AND BUNION REPAIR H/O: hysterectomy + ANTERIOR/POSTERIOR REPAIR History of bladder surgery SUSPENSION History of cataract surgery RIGHT/LEFT History of section History of cholecystectomy History of colonoscopy History of esophagogastroduodenoscopy (EGD) History of shoulder surgery RIGHT SHOULDER History of surgery perianal fistula History of tonsillectomy Adenoidectomy History of tooth extraction History of total knee replacement RIGHT/LEFT History of vaginal hysterectomy Family History Mother Family history of diabetes mellitus COPD (chronic obstructive pulmonary disease) Diabetes Hypertension Brother Family history of diabetes mellitus Diabetes Renal failure Sister Family history of diabetes mellitus Malignant melanoma Uncle Family hx of colon cancer Colorectal cancer Paternal Aunt Breast cancer Maternal Ovarian cancer Paternal Social History Smoking Status: Never smoker Second Hand Exposure: No; Hx Alcohol Use: No Hx Substance Use: No Preferred Language: [place] Communication Ability: Impaired Visual Impairment: Limited Hearing Ability: Normal 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: No Beliefs That Will Affect Care: None marital status: Current Living Situation: Spouse Feels Safe at Home: Yes Assistive Devices: Cane, Walker and Wheelchair Review of Systems A total of 10 systems reviewed and were otherwise negative All systems reviewed & are unremarkable except as noted in HPI & below Physical Exam Vital Signs Vital Signs - 24 hr 05/22/22 03:32 05/22/22 03:32 05/22/22 04:00 Pulse Rate Pulse Rate from SpO2 Sensor Respiratory Rate Respiratory Effort / Characteristics Non-Labored Respiratory Depth Blood Pressure Blood Pressure Mean Pulse Oximetry 96 96 Oxygen Delivery Method Room Air Room Air Room Air 05/22/22 04:34 05/22/22 04:36 05/22/22 04:37 Pulse Rate 94 H 96 H 94 H Pulse Rate from SpO2 Sensor Respiratory Rate 20 15 19 Respiratory Effort / Characteristics Respiratory Depth Blood Pressure 63/46 L 89/44 L 76/49 L Blood Pressure Mean 51 59 58 Pulse Oximetry 93 92 92 Oxygen Delivery Method Room Air Room Air Room Air 05/22/22 04:38 05/22/22 04:41 05/22/22 04:30 Pulse Rate 95 H 95 H Pulse Rate from SpO2 Sensor Respiratory Rate 13 19 Respiratory Effort / Characteristics Non-Labored Spontaneous Respiratory Depth Blood Pressure 75/45 L 101/41 L Blood Pressure Mean 55 61 Pulse Oximetry 95 95 Oxygen Delivery Method Room Air Room Air 05/22/22 05:00 05/22/22 05:30 05/22/22 06:00 Pulse Rate Pulse Rate from SpO2 Sensor Respiratory Rate Respiratory Effort / Characteristics Non-Labored Spontaneous Non-Labored Spontaneous Non-Labored Spontaneous Respiratory Depth Blood Pressure Blood Pressure Mean Pulse Oximetry Oxygen Delivery Method 05/22/22 04:21 05/22/22 06:21 05/22/22 04:45 Pulse Rate 95 H Pulse Rate from SpO2 Sensor 95 H Respiratory Rate 17 Respiratory Effort / Characteristics Non-Labored Non-Labored Respiratory Depth Normal Normal Blood Pressure Blood Pressure Mean Pulse Oximetry 96 Oxygen Delivery Method 05/22/22 04:50 05/22/22 04:50 05/22/22 04:56 Pulse Rate 97 H Pulse Rate from SpO2 Sensor 96 H Respiratory Rate 19 Respiratory Effort / Characteristics Respiratory Depth Blood Pressure 73/44 L 95/35 L Blood Pressure Mean 53 55 Pulse Oximetry 93 Oxygen Delivery Method 05/22/22 04:56 05/22/22 05:20 05/22/22 05:22 Pulse Rate 95 H 99 H 100 H Pulse Rate from SpO2 Sensor 96 H Respiratory Rate 19 21 Respiratory Effort / Characteristics Respiratory Depth Blood Pressure Blood Pressure Mean Pulse Oximetry 97 Oxygen Delivery Method 05/22/22 05:22 05/22/22 05:23 05/22/22 05:23 Pulse Rate 98 H Pulse Rate from SpO2 Sensor 99 H Respiratory Rate Respiratory Effort / Characteristics Respiratory Depth Blood Pressure 59/42 L 90/42 L Blood Pressure Mean 47 58 Pulse Oximetry 95 Oxygen Delivery Method 05/22/22 05:25 05/22/22 05:25 05/22/22 05:30 Pulse Rate 108 H Pulse Rate from SpO2 Sensor 98 H Respiratory Rate Respiratory Effort / Characteristics Respiratory Depth Blood Pressure 89/47 L 91/46 L Blood Pressure Mean 61 61 Pulse Oximetry 95 Oxygen Delivery Method 05/22/22 05:30 05/22/22 05:42 05/22/22 05:42 Pulse Rate 106 H Pulse Rate from SpO2 Sensor 96 H 95 H Respiratory Rate Respiratory Effort / Characteristics Respiratory Depth Blood Pressure 82/38 L Blood Pressure Mean 52 Pulse Oximetry 97 97 Oxygen Delivery Method 05/22/22 05:45 05/22/22 05:56 05/22/22 05:56 Pulse Rate Pulse Rate from SpO2 Sensor 94 H 98 H Respiratory Rate Respiratory Effort / Characteristics Respiratory Depth Blood Pressure 102/38 L Blood Pressure Mean 59 Pulse Oximetry 88 L 93 Oxygen Delivery Method 05/22/22 06:00 05/22/22 06:00 05/22/22 06:05 Pulse Rate Pulse Rate from SpO2 Sensor 95 H Respiratory Rate Respiratory Effort / Characteristics Respiratory Depth Blood Pressure 88/44 L 91/39 L Blood Pressure Mean 58 56 Pulse Oximetry 88 L Oxygen Delivery Method 05/22/22 06:05 05/22/22 06:10 05/22/22 06:10 Pulse Rate Pulse Rate from SpO2 Sensor 92 H 100 H Respiratory Rate Respiratory Effort / Characteristics Respiratory Depth Blood Pressure 88/41 L Blood Pressure Mean 56 Pulse Oximetry 93 88 L Oxygen Delivery Method 05/22/22 06:15 05/22/22 06:15 05/22/22 06:20 Pulse Rate Pulse Rate from SpO2 Sensor 95 H 92 H Respiratory Rate Respiratory Effort / Characteristics Respiratory Depth Blood Pressure 81/48 L Blood Pressure Mean 59 Pulse Oximetry 91 93 Oxygen Delivery Method 05/22/22 06:20 05/22/22 06:30 05/22/22 06:25 Pulse Rate Pulse Rate from SpO2 Sensor 88 Respiratory Rate Respiratory Effort / Characteristics Non-Labored Spontaneous Respiratory Depth Blood Pressure 87/48 L Blood Pressure Mean 61 Pulse Oximetry 93 Oxygen Delivery Method 05/22/22 06:25 05/22/22 06:30 05/22/22 06:30 Pulse Rate Pulse Rate from SpO2 Sensor 93 H Respiratory Rate Respiratory Effort / Characteristics Respiratory Depth Blood Pressure 103/45 L 104/52 L Blood Pressure Mean 64 69 Pulse Oximetry 95 Oxygen Delivery Method 05/22/22 06:36 05/22/22 06:36 05/22/22 06:40 Pulse Rate Pulse Rate from SpO2 Sensor 93 H Respiratory Rate Respiratory Effort / Characteristics Respiratory Depth Blood Pressure 72/33 L 85/44 L Blood Pressure Mean 46 57 Pulse Oximetry 94 Oxygen Delivery Method 05/22/22 06:40 05/22/22 06:45 05/22/22 06:45 Pulse Rate Pulse Rate from SpO2 Sensor 95 H 94 H Respiratory Rate Respiratory Effort / Characteristics Respiratory Depth Blood Pressure 103/57 L Blood Pressure Mean 72 Pulse Oximetry 93 86 L Oxygen Delivery Method 05/22/22 07:00 05/22/22 06:50 05/22/22 06:56 Pulse Rate Pulse Rate from SpO2 Sensor 100 H 99 H Respiratory Rate 19 Respiratory Effort / Characteristics Non-Labored Spontaneous Respiratory Depth Blood Pressure 97/37 L 100/45 L Blood Pressure Mean 57 63 Pulse Oximetry 91 90 93 Oxygen Delivery Method Room Air 05/22/22 07:00 05/22/22 07:11 05/22/22 07:15 Pulse Rate 97 H 99 H 96 H Pulse Rate from SpO2 Sensor 97 H 98 H 94 H Respiratory Rate 13 20 19 Respiratory Effort / Characteristics Respiratory Depth Blood Pressure 100/48 L 84/57 L 86/46 L Blood Pressure Mean 65 66 59 Pulse Oximetry 95 91 Oxygen Delivery Method GENERAL: alert, unwell appearing, well nourished, no distress, non-toxic EYE EXAM: normal conjunctiva, PERRL and EOM's grossly intact OROPHARYNX: no exudate, no erythema, lips, buccal mucosa, and tongue normal and mucous membranes are dry NECK: supple, no nuchal rigidity, no adenopathy, non-tender LUNGS: Clear to auscultation. Normal chest wall mechanics, no w/r/r HEART: no murmurs, S1 normal and S2 normal ABDOMEN: abdomen soft, non-tender, normo-active bowel sounds, no masses, no rebound or guarding. BACK: Back is symmetrical on inspection and there is no deformity, no midline tenderness, no CVA tenderness. SKIN: no rashes and no bruising, pallor UPPER EXTREMITIES: upper extremities are grossly normal. FROM, nml pulses b/l. LOWER EXTREMITIES: No pitting edema. FROM, nml pulses b/l. No clonus. NEURO EXAM: Normal sensorium, cranial nerves II-XII grossly intact, normal speech, no gross weakness of arms, no gross weakness of legs. Gross sensation intact. Course Course 0302: VS stable. patient awake. 0450: Nurses noting BP trending down despite IVF. Patient still awake and talking, only c/o pain at sacrum. 0515: Discussed with Poison control. They advised continued IV fluid rehydration, repeat labs, and IV magnesium due to prolonged QT. 0535: Pt still hypotensive after returning from CT scan. She did have a BM. 0635: Dr. Jean at bedside. Patient given small fluid boluses since repeat labs are pending. Administered Medications Buprenorphine HCl (Buprenorphine Hcl 2 Mg Subl) 4 mg SL BID [facility] Stop: 06/21/22 20:59 Last Admin: 05/22/22 20:26 Dose: Not Given Documented By: PRETTY Dextrose (Dextrose 50% 50 Ml Syringe) 25 - 50 ml IV UD PRN; Protocol PRN Reason: Hypoglycemia Protocol Stop: 06/21/22 21:49 Last Admin: 05/22/22 21:58 Dose: 25 ml Documented By: PRETTY Donepezil HCl (Donepezil Hcl 10 Mg Tab) 10 mg PO [facility] Stop: 06/21/22 20:59 Last Admin: 05/22/22 20:26 Dose: Not Given Documented By: CAHDP Famotidine (Famotidine 40 Mg Tablet) 40 mg PO BID [facility] Stop: 06/21/22 08:59 Last Admin: 05/22/22 20:26 Dose: Not Given Documented By: Admin: 05/22/22 10:55 Dose: 40 mg Documented By: TB Fluticasone Propionate (Fluticasone Propionate Na Spr 16 Gm Btl) 2 sprays NA [facility] Stop: 06/21/22 20:59 Last Admin: 05/22/22 20:40 Dose: 2 sprays Documented By: PRETTY Fluticasone/Vilanterol (Fluticasone/Vilanterol 200/25mcg 14 Puffs/Inhaler) 1 puffs INH DAILY [facility] Stop: 06/21/22 08:59 Last Admin: 05/22/22 10:54 Dose: 1 puffs Documented By: TB Folic Acid (Folic Acid 400 Mcg Tab) 800 mcg PO QAM [facility] Stop: 06/21/22 08:59 Last Admin: 05/22/22 10:55 Dose: 800 mcg Documented By: LINO Sodium Chloride (Nss 1000ml) 1,000 mls @ 100 mls/hr IV .Q10H [facility] Stop: 06/21/22 07:59 Last Admin: 05/22/22 20:41 Dose: 100 mls/hr Documented By: Infusion: 05/22/22 20:41 Dose: 100 mls/hr Documented By: Admin: 05/22/22 10:55 Dose: 100 mls/hr Documented By: LINO Piperacillin Sod/Tazobactam (Sod 3.375 gm/ Dextrose) 115 mls @ 28.75 mls/hr IV Q12H [facility]; Protocol Stop: 05/24/22 11:59 Last Admin: 05/23/22 00:16 Dose: 28.8 mls/hr Documented By: Infusion: 05/22/22 15:54 Dose: 0 mls/hr Documented By: Admin: 05/22/22 11:51 Dose: 28.8 mls/hr Documented By: LINO Insulin Aspart (Insulin Aspart Per Unit) 0 units SC ACHS [facility] Stop: 06/21/22 08:24 Last Admin: 05/22/22 20:23 Dose: Not Given Documented By: Admin: 05/22/22 18:05 Dose: Not Given Documented By: LINO Co-signed By: JONATHAN Admin: 05/22/22 11:54 Dose: 2 units Documented By: LINO Co-signed By: [id number] Admin: 05/22/22 09:23 Dose: Not Given Documented By: TB Co-signed By: [id number] Levothyroxine Sodium (Levothyroxine Sodium 100 Mcg Tablet) 100 mcg PO DAILYBB [facility] Stop: 06/21/22 08:59 Last Admin: 05/22/22 11:48 Dose: 100 mcg Documented By: TB Magnesium Oxide (Magnesium Oxide 400 Mg Tab) 400 mg PO Q2D@0900 [facility] Stop: 06/21/22 08:59 Last Admin: 05/22/22 10:55 Dose: 400 mg Documented By: LINO Montelukast Sodium (Montelukast Sodium 10 Mg Tablet) 10 mg PO HS [facility] Stop: 06/21/22 20:59 Last Admin: 05/22/22 20:26 Dose: Not Given Documented By: PRETTY Discontinued Medications Dextrose (Dextrose 50% 50 Ml Syringe) Confirm Administered Dose 50 ml IV .STK- MED ONE Stop: 05/22/22 21:57 Last Admin: 05/22/22 23:31 Dose: Not Given Documented By: PRETTY Sodium Chloride (Nss 1000ml) 1,000 mls @ 125 mls/hr IV .Q8H [facility] Stop: 06/21/22 02:59 Last Infusion: 05/22/22 10:14 Dose: 0 mls/hr Documented By: Admin: 05/22/22 02:59 Dose: 125 mls/hr Documented By: NILDA Piperacillin Sod/Tazobactam Sod (Zosyn) 4.5 gm in 120 mls @ 240 mls/hr IV NOW ONE Stop: 05/22/22 04:15 Last Infusion: 05/22/22 06:09 Dose: 0 mls/hr Documented By: Admin: 05/22/22 04:37 Dose: 240 mls/hr Documented By: SOLEDAD Magnesium Sulfate/Dextrose (Magnesium Sulfate / D5w) 1 gm in 100 mls @ 100 mls/hr IV NOW STA Stop: 05/22/22 06:06 Last Infusion: 05/22/22 07:22 Dose: 0 mls/hr Documented By: Admin: 05/22/22 06:09 Dose: 100 mls/hr Documented By: THO Lactated Ringer's (Lr) 1,000 mls @ 200 mls/hr IV .Q5H [facility] Stop: 06/21/22 05:29 Last Infusion: 05/22/22 10:14 Dose: 0 mls/hr Documented By: Admin: 05/22/22 06:09 Dose: 200 mls/hr Documented By: THO Magnesium Sulfate/Dextrose (Magnesium Sulfate / D5w) 1 gm in 100 mls @ 100 mls/hr IV NOW STA Stop: 05/22/22 08:48 Last Infusion: 05/22/22 10:51 Dose: 0 mls/hr Documented By: Admin: 05/22/22 09:29 Dose: 100 mls/hr Documented By: TB Calcium Gluconate 2,000 mg/ (Dextrose) 70 mls @ 240 mls/hr IV NOW ONE Stop: 05/22/22 09:07 Last Infusion: 05/22/22 10:14 Dose: 0 mls/hr Documented By: Admin: 05/22/22 09:24 Dose: 240 mls/hr Documented By: TB Lactated Ringer's (Lr) 2,000 mls @ 999 mls/hr IV .Q2H1M ONE Stop: 05/22/22 10:31 Last Infusion: 05/22/22 10:14 Dose: 0 mls/hr Documented By: Admin: 05/22/22 09:00 Dose: 999 mls/hr Documented By: TB Sodium Chloride (Hypertonic Saline 3%) 150 mls @ 450 mls/hr IV .Q20M ONE Stop: 05/22/22 13:54 Last Infusion: 05/22/22 14:44 Dose: 0 mls/hr Documented By: LINO Co-signed By: PIERCE Admin: 05/22/22 14:04 Dose: 450 mls/hr Documented By: LINO Co-signed By: PIERCE Sodium Bicarbonate (Sodium Bicarb 8.4% Inj 50 Meq/50 Ml Syr) Confirm Administered Dose 50 meq IV .STK-MED ONE Stop: 05/22/22 10:12 Last Admin: 05/22/22 11:03 Dose: Not Given Documented By: TB Sodium Bicarbonate (Sodium Bicarb 8.4% Inj 50 Meq/50 Ml Syr) 50 meq IV NOW STA Stop: 05/22/22 10:58 Last Admin: 05/22/22 11:03 Dose: 50 meq Documented By: TB Critical Care Time Critical Care Time: Yes Total Critical Care Time: 70 Critical care of 70 min performed to assess and manage high likelihood of life- threatening ams and hypotension, involving labs and imaging performed with assessment to evaluate ams and overdose diagnosis with frequent reassessment. This time includes bedside time, treatment discussions with patient/family/consultants, documentation time and excludes procedure time. Medical Decision Making Differential Diagnosis Differential diagnoses includes but is not limited to toxic, metabolic, infec tious, traumatic, cardiac, neurologic, hematologic, psychiatric and inflammatory etiologies. Medical Records Attestation: I reviewed the patient's medical records. Home Medications Current Medication List: was personally reviewed by me Laboratory Data Attestation: I reviewed the patient's lab results. Result diagrams: 05/22/22 02:48 05/23/22 00:38 Lab Results 05/22/22 05/22/22 05/22/22 Range/Units 02:48 02:48 02:48 WBC 34.37 H* (4.8-10.8) K/ul RBC 3.70 L (3.93-5.22) M/uL Hgb 9.8 L (12.0-16.0) g/dl Hct 29.9 L (34.1-44.9) % MCV 80.8 (80.0-100.0) fL MCH 26.5 (25.0-34.0) pg MCHC 32.8 (32.0-36.0) g/dL RDW Std Deviation 45.0 (36.4-46.3) fL RDW Coeff of Zeynep 15.3 H (11.5-14.5) % Plt Count 277 (130-400) K/uL MPV 10.0 (9.4-12.3) fL Immature Gran % (Auto) 1.5 % Neut % (Auto) 91.0 % Lymph % (Auto) 3.0 % Will % (Auto) 4.1 % Eos % (Auto) 0.3 % Baso % (Auto) 0.1 % Neut # (Auto) 31.29 H (1.4-6.5) K/uL Lymph # (Auto) 1.04 L (1.2-3.4) K/uL Will # (Auto) 1.42 H (0.24-0.82) K/uL Eos # (Auto) 0.09 (0-0.50) K/uL Baso # (Auto) 0.02 (0-0.2) K/uL Immature Gran # (Auto) 0.51 H (0.00-0.02) K/uL Toxic Granulation 2+ Toxic Vacuolation 2+ Polychromasia 1+ Echinocytes 3+ PT 12.0 (9.0-12.0) Seconds INR 1.1 (0.9-1.1) APTT 35.0 H (21.0-31.0) Seconds PTT Ratio 1.3 ABG pH (7.35-7.45) ABG pCO2 (35-46) mmHg ABG pO2 (80-95) mmHg ABG HCO3 (19-24) mmol/L ABG O2 Saturation (90-95) % ABG Base Excess (-9-1.8) mEq/L James Test (Pos) Oxygen Given Sodium Cancelled Potassium Cancelled Chloride Cancelled Carbon Dioxide Cancelled Anion Gap Cancelled BUN Cancelled Creatinine Cancelled Est Cr Clr Drug Dosing Cancelled Est GFR ( Amer) Cancelled Est GFR (Non-Af Amer) Cancelled BUN/Creatinine Ratio Cancelled Glucose Cancelled Lactate (0.4-2.0) mmol/L Calcium Cancelled Magnesium Cancelled Total Bilirubin Cancelled AST Cancelled ALT Cancelled Alkaline Phosphatase Cancelled Troponin I High Sens 26.5 H D (0-14) pg/ml Total Protein Cancelled Albumin Cancelled Globulin Cancelled Albumin/Globulin Ratio Cancelled Procalcitonin (0-0.5) ng/ml Urine Color Urine Appearance (Clear) Urine pH (4.5-7.5) Ur Specific [place] (1.000-1.030) Urine Protein (Negative) Urine Glucose (UA) (Negative) Urine Ketones (Negative) Urine Blood (Negative) Urine Nitrite (Negative) Urine Bilirubin (Negative) Urine Urobilinogen (Negative) Ur Leukocyte Esterase (Negative) Urine WBC (Auto) (0-5) /hpf Urine RBC (Auto) (0-4) /hpf U Hyaline Cast (Auto) (0-5) /lpf U Epithel Cells (Auto) (0-5) /lpf Urine Bacteria (Auto) (Negative) Granular Casts (0) /lpf Urine Yeast Salicylates (3.0-30) mg/dl Acetaminophen (10-30) ug/ml Ethyl Alcohol mg/dL (<10.0) mg/dl SARS-CoV-2, RNA, NAAT (NEGATIVE) Staphylococcus sp PCR (NotDetected) Staph aureus (PCR) (NotDetected) mecA/C & MREJ Resist Gene (NotDetected) Streptococcus sp PCR (NotDetected) Strep agalactiae (PCR) (NotDetected) P. aeruginosa (PCR) (NotDetected) blaIMP Car res Gene PCR (NotDetected) KPC-Carbap Res Gene PCR (NotDetected) blaNDM Car Res Gene PCR (NotDetected) blaVIM Car Res Gene PCR (NotDetected) CTX-M Gene Resistance (PCR) (NotDetected) Bld Cult ID Panel PCR (NotDetected) 05/22/22 05/22/22 05/22/22 Range/Units 02:48 02:48 02:48 WBC (4.8-10.8) K/ul RBC (3.93-5.22) M/uL Hgb (12.0-16.0) g/dl Hct (34.1-44.9) % MCV (80.0-100.0) fL MCH (25.0-34.0) pg MCHC (32.0-36.0) g/dL RDW Std Deviation (36.4-46.3) fL RDW Coeff of Zeynep (11.5-14.5) % Plt Count (130-400) K/uL MPV (9.4-12.3) fL Immature Gran % (Auto) % Neut % (Auto) % Lymph % (Auto) % Will % (Auto) % Eos % (Auto) % Baso % (Auto) % Neut # (Auto) (1.4-6.5) K/uL Lymph # (Auto) (1.2-3.4) K/uL Will # (Auto) (0.24-0.82) K/uL Eos # (Auto) (0-0.50) K/uL Baso # (Auto) (0-0.2) K/uL Immature Gran # (Auto) (0.00-0.02) K/uL Toxic Granulation Toxic Vacuolation Polychromasia Echinocytes PT (9.0-12.0) Seconds INR (0.9-1.1) APTT (21.0-31.0) Seconds PTT Ratio ABG pH (7.35-7.45) ABG pCO2 (35-46) mmHg ABG pO2 (80-95) mmHg ABG HCO3 (19-24) mmol/L ABG O2 Saturation (90-95) % ABG Base Excess (-9-1.8) mEq/L James Test (Pos) Oxygen Given Sodium Potassium Chloride Carbon Dioxide Anion Gap BUN Creatinine Est Cr Clr Drug Dosing Est GFR ( Amer) Est GFR (Non-Af Amer) BUN/Creatinine Ratio Glucose Lactate 7.7 H* (0.4-2.0) mmol/L Calcium Magnesium Total Bilirubin AST ALT Alkaline Phosphatase Troponin I High Sens (0-14) pg/ml Total Protein Albumin Globulin Albumin/Globulin Ratio Procalcitonin 14.98 H (0-0.5) ng/ml Urine Color Urine Appearance (Clear) Urine pH (4.5-7.5) Ur Specific [place] (1.000-1.030) Urine Protein (Negative) Urine Glucose (UA) (Negative) Urine Ketones (Negative) Urine Blood (Negative) Urine Nitrite (Negative) Urine Bilirubin (Negative) Urine Urobilinogen (Negative) Ur Leukocyte Esterase (Negative) Urine WBC (Auto) (0-5) /hpf Urine RBC (Auto) (0-4) /hpf U Hyaline Cast (Auto) (0-5) /lpf U Epithel Cells (Auto) (0-5) /lpf Urine Bacteria (Auto) (Negative) Granular Casts (0) /lpf Urine Yeast Salicylates (3.0-30) mg/dl Acetaminophen (10-30) ug/ml Ethyl Alcohol mg/dL (<10.0) mg/dl SARS-CoV-2, RNA, NAAT (NEGATIVE) Staphylococcus sp PCR (NotDetected) Staph aureus (PCR) (NotDetected) mecA/C & MREJ Resist Gene (NotDetected) Streptococcus sp PCR DETECTED A (NotDetected) Strep agalactiae (PCR) (NotDetected) P. aeruginosa (PCR) (NotDetected) blaIMP Car res Gene PCR (NotDetected) KPC-Carbap Res Gene PCR (NotDetected) blaNDM Car Res Gene PCR (NotDetected) blaVIM Car Res Gene PCR (NotDetected) CTX-M Gene Resistance (PCR) (NotDetected) Bld Cult ID Panel PCR See PCR Comment (NotDetected) 05/22/22 05/22/22 05/22/22 Range/Units 02:48 03:30 03:56 WBC (4.8-10.8) K/ul RBC (3.93-5.22) M/uL Hgb (12.0-16.0) g/dl Hct (34.1-44.9) % MCV (80.0-100.0) fL MCH (25.0-34.0) pg MCHC (32.0-36.0) g/dL RDW Std Deviation (36.4-46.3) fL RDW Coeff of Zeynep (11.5-14.5) % Plt Count (130-400) K/uL MPV (9.4-12.3) fL Immature Gran % (Auto) % Neut % (Auto) % Lymph % (Auto) % Will % (Auto) % Eos % (Auto) % Baso % (Auto) % Neut # (Auto) (1.4-6.5) K/uL Lymph # (Auto) (1.2-3.4) K/uL Will # (Auto) (0.24-0.82) K/uL Eos # (Auto) (0-0.50) K/uL Baso # (Auto) (0-0.2) K/uL Immature Gran # (Auto) (0.00-0.02) K/uL Toxic Granulation Toxic Vacuolation Polychromasia Echinocytes PT (9.0-12.0) Seconds INR (0.9-1.1) APTT (21.0-31.0) Seconds PTT Ratio ABG pH (7.35-7.45) ABG pCO2 (35-46) mmHg ABG pO2 (80-95) mmHg ABG HCO3 (19-24) mmol/L ABG O2 Saturation (90-95) % ABG Base Excess (-9-1.8) mEq/L James Test (Pos) Oxygen Given Sodium 120 L Potassium 4.2 Chloride 89 L Carbon Dioxide 16 L Anion Gap 15 H BUN 45 H Creatinine 2.42 H Est Cr Clr Drug Dosing 21.9 Est GFR ( Amer) 22.1 Est GFR (Non-Af Amer) 19.1 BUN/Creatinine Ratio 18.6 Glucose 153 H Lactate (0.4-2.0) mmol/L Calcium 7.8 L Magnesium 1.9 Total Bilirubin 0.4 AST 61 H ALT 38 Alkaline Phosphatase 84 Troponin I High Sens (0-14) pg/ml Total Protein 4.7 L Albumin 2.5 L Globulin 2.2 L Albumin/Globulin Ratio 1.1 Procalcitonin (0-0.5) ng/ml Urine Color Urine Appearance (Clear) Urine pH (4.5-7.5) Ur Specific [place] (1.000-1.030) Urine Protein (Negative) Urine Glucose (UA) (Negative) Urine Ketones (Negative) Urine Blood (Negative) Urine Nitrite (Negative) Urine Bilirubin (Negative) Urine Urobilinogen (Negative) Ur Leukocyte Esterase (Negative) Urine WBC (Auto) (0-5) /hpf Urine RBC (Auto) (0-4) /hpf U Hyaline Cast (Auto) (0-5) /lpf U Epithel Cells (Auto) (0-5) /lpf Urine Bacteria (Auto) (Negative) Granular Casts (0) /lpf Urine Yeast Salicylates (3.0-30) mg/dl Acetaminophen (10-30) ug/ml Ethyl Alcohol mg/dL (<10.0) mg/dl SARS-CoV-2, RNA, NAAT NEGATIVE (NEGATIVE) Staphylococcus sp PCR DETECTED A (NotDetected) Staph aureus (PCR) DETECTED A (NotDetected) mecA/C & MREJ Resist Gene MRSA DETECTED A* (NotDetected) Streptococcus sp PCR DETECTED A (NotDetected) Strep agalactiae (PCR) (NotDetected) P. aeruginosa (PCR) DETECTED A (NotDetected) blaIMP Car res Gene PCR Not Detected (NotDetected) KPC-Carbap Res Gene PCR Not Detected (NotDetected) blaNDM Car Res Gene PCR Not Detected (NotDetected) blaVIM Car Res Gene PCR Not Detected (NotDetected) CTX-M Gene Resistance (PCR) Not Detected (NotDetected) Bld Cult ID Panel PCR See PCR Comment (NotDetected) 05/22/22 05/22/22 05/22/22 Range/Units 04:43 05:44 05:44 WBC (4.8-10.8) K/ul RBC (3.93-5.22) M/uL Hgb (12.0-16.0) g/dl Hct (34.1-44.9) % MCV (80.0-100.0) fL MCH (25.0-34.0) pg MCHC (32.0-36.0) g/dL RDW Std Deviation (36.4-46.3) fL RDW Coeff of Zeynep (11.5-14.5) % Plt Count (130-400) K/uL MPV (9.4-12.3) fL Immature Gran % (Auto) % Neut % (Auto) % Lymph % (Auto) % Will % (Auto) % Eos % (Auto) % Baso % (Auto) % Neut # (Auto) (1.4-6.5) K/uL Lymph # (Auto) (1.2-3.4) K/uL Will # (Auto) (0.24-0.82) K/uL Eos # (Auto) (0-0.50) K/uL Baso # (Auto) (0-0.2) K/uL Immature Gran # (Auto) (0.00-0.02) K/uL Toxic Granulation Toxic Vacuolation Polychromasia Echinocytes PT (9.0-12.0) Seconds INR (0.9-1.1) APTT (21.0-31.0) Seconds PTT Ratio ABG pH (7.35-7.45) ABG pCO2 (35-46) mmHg ABG pO2 (80-95) mmHg ABG HCO3 (19-24) mmol/L ABG O2 Saturation (90-95) % ABG Base Excess (-9-1.8) mEq/L James Test (Pos) Oxygen Given Sodium Potassium Chloride Carbon Dioxide Anion Gap BUN Creatinine Est Cr Clr Drug Dosing Est GFR ( Amer) Est GFR (Non-Af Amer) BUN/Creatinine Ratio Glucose Lactate Cancelled (0.4-2.0) mmol/L Calcium Magnesium Total Bilirubin AST ALT Alkaline Phosphatase Troponin I High Sens (0-14) pg/ml Total Protein Albumin Globulin Albumin/Globulin Ratio Procalcitonin (0-0.5) ng/ml Urine Color Urine Appearance (Clear) Urine pH (4.5-7.5) Ur Specific [place] (1.000-1.030) Urine Protein (Negative) Urine Glucose (UA) (Negative) Urine Ketones (Negative) Urine Blood (Negative) Urine Nitrite (Negative) Urine Bilirubin (Negative) Urine Urobilinogen (Negative) Ur Leukocyte Esterase (Negative) Urine WBC (Auto) (0-5) /hpf Urine RBC (Auto) (0-4) /hpf U Hyaline Cast (Auto) (0-5) /lpf U Epithel Cells (Auto) (0-5) /lpf Urine Bacteria (Auto) (Negative) Granular Casts (0) /lpf Urine Yeast Salicylates < 3.0 L (3.0-30) mg/dl Acetaminophen < 3 L (10-30) ug/ml Ethyl Alcohol mg/dL < 10.0 (<10.0) mg/dl SARS-CoV-2, RNA, NAAT (NEGATIVE) Staphylococcus sp PCR (NotDetected) Staph aureus (PCR) (NotDetected) mecA/C & MREJ Resist Gene (NotDetected) Streptococcus sp PCR (NotDetected) Strep agalactiae (PCR) (NotDetected) P. aeruginosa (PCR) (NotDetected) blaIMP Car res Gene PCR (NotDetected) KPC-Carbap Res Gene PCR (NotDetected) blaNDM Car Res Gene PCR (NotDetected) blaVIM Car Res Gene PCR (NotDetected) CTX-M Gene Resistance (PCR) (NotDetected) Bld Cult ID Panel PCR (NotDetected) 05/22/22 05/22/22 05/22/22 Range/Units 05:44 05:44 05:50 WBC (4.8-10.8) K/ul RBC (3.93-5.22) M/uL Hgb (12.0-16.0) g/dl Hct (34.1-44.9) % MCV (80.0-100.0) fL MCH (25.0-34.0) pg MCHC (32.0-36.0) g/dL RDW Std Deviation (36.4-46.3) fL RDW Coeff of Zeynep (11.5-14.5) % Plt Count (130-400) K/uL MPV (9.4-12.3) fL Immature Gran % (Auto) % Neut % (Auto) % Lymph % (Auto) % Will % (Auto) % Eos % (Auto) % Baso % (Auto) % Neut # (Auto) (1.4-6.5) K/uL Lymph # (Auto) (1.2-3.4) K/uL Will # (Auto) (0.24-0.82) K/uL Eos # (Auto) (0-0.50) K/uL Baso # (Auto) (0-0.2) K/uL Immature Gran # (Auto) (0.00-0.02) K/uL Toxic Granulation Toxic Vacuolation Polychromasia Echinocytes PT (9.0-12.0) Seconds INR (0.9-1.1) APTT (21.0-31.0) Seconds PTT Ratio ABG pH (7.35-7.45) ABG pCO2 (35-46) mmHg ABG pO2 (80-95) mmHg ABG HCO3 (19-24) mmol/L ABG O2 Saturation (90-95) % ABG Base Excess (-9-1.8) mEq/L James Test (Pos) Oxygen Given Sodium 121 L Potassium 3.9 Chloride 88 L Carbon Dioxide 17 L Anion Gap 16 H BUN 45 H Creatinine 2.41 H Est Cr Clr Drug Dosing 22.0 Est GFR ( Amer) 22.2 Est GFR (Non-Af Amer) 19.1 BUN/Creatinine Ratio 18.7 Glucose 192 H Lactate 7.2 H* (0.4-2.0) mmol/L Calcium 7.3 L Magnesium Total Bilirubin 0.4 AST 58 H ALT 37 Alkaline Phosphatase 83 Troponin I High Sens (0-14) pg/ml Total Protein 4.7 L Albumin 2.5 L Globulin 2.2 L Albumin/Globulin Ratio 1.1 Procalcitonin (0-0.5) ng/ml Urine Color Dark Yellow Urine Appearance Cloudy A (Clear) Urine pH 5.0 (4.5-7.5) Ur Specific [place] 1.024 (1.000-1.030) Urine Protein 1+ H (Negative) Urine Glucose (UA) 1+ H (Negative) Urine Ketones Trace H (Negative) Urine Blood 3+ H (Negative) Urine Nitrite Negative (Negative) Urine Bilirubin Negative (Negative) Urine Urobilinogen Negative (Negative) Ur Leukocyte Esterase Negative (Negative) Urine WBC (Auto) 1-5 (0-5) /hpf Urine RBC (Auto) 0-4 (0-4) /hpf U Hyaline Cast (Auto) 1-5 (0-5) /lpf U Epithel Cells (Auto) >30 H (0-5) /lpf Urine Bacteria (Auto) Negative (Negative) Granular Casts 1-5 H (0) /lpf Urine Yeast Not Reportable Salicylates (3.0-30) mg/dl Acetaminophen (10-30) ug/ml Ethyl Alcohol mg/dL (<10.0) mg/dl SARS-CoV-2, RNA, NAAT (NEGATIVE) Staphylococcus sp PCR (NotDetected) Staph aureus (PCR) (NotDetected) mecA/C & MREJ Resist Gene (NotDetected) Streptococcus sp PCR (NotDetected) Strep agalactiae (PCR) (NotDetected) P. aeruginosa (PCR) (NotDetected) blaIMP Car res Gene PCR (NotDetected) KPC-Carbap Res Gene PCR (NotDetected) blaNDM Car Res Gene PCR (NotDetected) blaVIM Car Res Gene PCR (NotDetected) CTX-M Gene Resistance (PCR) (NotDetected) Bld Cult ID Panel PCR (NotDetected) 05/22/22 Range/Units 06:05 WBC (4.8-10.8) K/ul RBC (3.93-5.22) M/uL Hgb (12.0-16.0) g/dl Hct (34.1-44.9) % MCV (80.0-100.0) fL MCH (25.0-34.0) pg MCHC (32.0-36.0) g/dL RDW Std Deviation (36.4-46.3) fL RDW Coeff of Zeynep (11.5-14.5) % Plt Count (130-400) K/uL MPV (9.4-12.3) fL Immature Gran % (Auto) % Neut % (Auto) % Lymph % (Auto) % Will % (Auto) % Eos % (Auto) % Baso % (Auto) % Neut # (Auto) (1.4-6.5) K/uL Lymph # (Auto) (1.2-3.4) K/uL Will # (Auto) (0.24-0.82) K/uL Eos # (Auto) (0-0.50) K/uL Baso # (Auto) (0-0.2) K/uL Immature Gran # (Auto) (0.00-0.02) K/uL Toxic Granulation Toxic Vacuolation Polychromasia Echinocytes PT (9.0-12.0) Seconds INR (0.9-1.1) APTT (21.0-31.0) Seconds PTT Ratio ABG pH 7.33 L (7.35-7.45) ABG pCO2 27 L (35-46) mmHg ABG pO2 68 L (80-95) mmHg ABG HCO3 14 L (19-24) mmol/L ABG O2 Saturation 94.7 (90-95) % ABG Base Excess -10.1 L (-9-1.8) mEq/L James Test Pos (Pos) Oxygen Given RA Sodium Potassium Chloride Carbon Dioxide Anion Gap BUN Creatinine Est Cr Clr Drug Dosing Est GFR ( Amer) Est GFR (Non-Af Amer) BUN/Creatinine Ratio Glucose Lactate (0.4-2.0) mmol/L Calcium Magnesium Total Bilirubin AST ALT Alkaline Phosphatase Troponin I High Sens (0-14) pg/ml Total Protein Albumin Globulin Albumin/Globulin Ratio Procalcitonin (0-0.5) ng/ml Urine Color Urine Appearance (Clear) Urine pH (4.5-7.5) Ur Specific [place] (1.000-1.030) Urine Protein (Negative) Urine Glucose (UA) (Negative) Urine Ketones (Negative) Urine Blood (Negative) Urine Nitrite (Negative) Urine Bilirubin (Negative) Urine Urobilinogen (Negative) Ur Leukocyte Esterase (Negative) Urine WBC (Auto) (0-5) /hpf Urine RBC (Auto) (0-4) /hpf U Hyaline Cast (Auto) (0-5) /lpf U Epithel Cells (Auto) (0-5) /lpf Urine Bacteria (Auto) (Negative) Granular Casts (0) /lpf Urine Yeast Salicylates (3.0-30) mg/dl Acetaminophen (10-30) ug/ml Ethyl Alcohol mg/dL (<10.0) mg/dl SARS-CoV-2, RNA, NAAT (NEGATIVE) Staphylococcus sp PCR (NotDetected) Staph aureus (PCR) (NotDetected) mecA/C & MREJ Resist Gene (NotDetected) Streptococcus sp PCR (NotDetected) Strep agalactiae (PCR) (NotDetected) P. aeruginosa (PCR) (NotDetected) blaIMP Car res Gene PCR (NotDetected) KPC-Carbap Res Gene PCR (NotDetected) blaNDM Car Res Gene PCR (NotDetected) blaVIM Car Res Gene PCR (NotDetected) CTX-M Gene Resistance (PCR) (NotDetected) Bld Cult ID Panel PCR (NotDetected) MDM Narrative An order was placed for continuous cardiac monitoring. The monitor shows a rate of _92_ with _normal sinus__ rhythm. This is a 76-year-old female presents emergency department due to altered mental status. EMS reports while in route patient's mental status did begin to improve and patient then also admitted to them an intentional overdose on her trazodone which she is prescribed. EMS did have difficulty initially trying to obtain vital signs on the patient, however on arrival here her vital signs were reassuring despite patient being ill-appearing and clinically dehydrated. Labs drawn and sent, x-ray performed, IV fluids continued. Patient found to have several significant lab abnormalities including significant leukocytosis, lactic acidosis, evidence of VJ, severe hyponatremia. Patient covered with IV Zosyn as a precaution given reported vomiting and diarrhea after finding of l eukocytosis. Patient was taken for CT of the abdomen pelvis as a precaution. Patient did begin to drop her blood pressure after completing the second liter of IV fluids, when we had turned her down to a maintenance rate. She was given several small additional boluses to which she would respond. CT of abdomen and pelvis was reassuring. It is unclear if the leukocytosis is secondary to stress to margination and/or evolving infection. Lactic acidosis could be from infection, dehydration, and also if she is still taking her metformin. Hyponatremia may be from decreased intake as well as a side effect of trazodone and her other medications. Patient continued to be oriented and mentating well throughout despite lab abnormalities and episodes of hypotension. There is no evidence of serotonin syndrome on exam. Case was discussed with poison control who made additional recommendations listed. Case discussed with hospitalist for additional evaluation and management. Impression & Plan AMS (altered mental status), Leukocytosis, VJ (acute kidney injury), Anemia, Hyponatremia, Intentional overdose, Dehydration, Hypotension Discharge Plan Visit Data Chief Complaint: Unresponsive ED Provider: Pheasant,Delmi S. Discharge Problem: AMS (altered mental status), Leukocytosis, VJ (acute kidney injury), Anemia, Hyponatremia, Intentional overdose, Dehydration, Hypotension Patient Disposition: Admitted As Inpatient Discharge Instructions Interventions: ED Discharge Assessment Last Done: 05/22/22 07:53
[2022-05-22] MEDS ORDERED: SODIUM CHLORIDE 0.9% 1000ML 1,000 ML IV SCH (03:00)
[2022-05-22 03:18] LABS: INR 1.1 (0.9-1.1); Partial Thromboplastin Ratio 1.3
[2022-05-22 03:40] LABS: Basophils # (auto) 0.02 K/uL (0-0.2); Basophils % (auto) 0.1 %; Echinocytes 3+; Eosinophils # (auto) 0.09 K/uL (0-0.50); Eosinophils % (auto) 0.3 %; Hematocrit (blood only) 29.9 % (34.1-44.9); Hemoglobin 9.8 g/dl (12.0-16.0); Immature Granulocytes # (auto) 0.51 K/uL (0.00-0.02); Immature Granulocytes % (auto) 1.5 %; Lymphocytes # (auto) 1.04 K/uL (1.2-3.4); Mean Corpuscular Hemoglobin 26.5 pg (25.0-34.0); Mean Corpuscular Hgb Conc 32.8 g/dL (32.0-36.0); Mean Corpuscular Volume 80.8 fL (80.0-100.0); Monocytes # (auto) 1.42 K/uL (0.24-0.82); Monocytes % (auto) 4.1 %; Neutrophils # (auto) 31.29 K/uL (1.4-6.5); Platelet Count 277 K/uL (130-400); Polychromasia 1+; RDW Coefficient of Variation 15.3 % (11.5-14.5); Toxic Granulation 2+; Toxic Vacuolation 2+; White Blood Count 34.37 K/ul (4.8-10.8)
[2022-05-22] MEDS ORDERED: PIPERACILLIN/TAZOBACTAM 4.5 GM/120 ML BAG IV ONE (03:46)
[2022-05-22 04:34] LABS: Albumin Globulin Ratio 1.1 (0.9-2); Albumin Level 2.5 gm/dl (3.4-5.0); BUN Creatinine Ratio 18.6 (10-20); Bilirubin,Total 0.4 mg/dl (0.2-1.0); Calcium 7.8 mg/dl (8.5-10.1); Creatinine Clr Calc Pharmacy 21.9 ml/min; Est GFR (African American) 22.1 ml/min; Est GFR (Non-African American) 19.1 ml/min; Globulin 2.2 gm/dl (2.5-4.0); Magnesium 1.9 mg/dl (1.7-2.4); Potassium 4.2 mmol/L (3.5-5.1); Total Protein 4.7 gm/dl (6.0-8.3)
[2022-05-22] MEDS ORDERED: MAGNESIUM SULFATE / D5W 1 GM/100 ML BAG IV STA ×2 (05:07→07:49)
[2022-05-22] MEDS ORDERED: LACTATED RINGER'S 1,000 ML IV SCH (05:30)
[2022-05-22 06:16] LABS: Appearance Urine Cloudy (Clear); Bacteria Urine Automated Negative (Negative); Bilirubin Urine Negative (Negative); Blood Urine 3+ (Negative); Color Urine Dark Yellow; Epithelial Cell Urine Auto >30 /lpf (0-5); Glucose Urine UA 1+ (Negative); Ketones Urine Trace (Negative); Leukocyte Esterase Urine Negative (Negative); Nitrite Urine Negative (Negative); Protein Urine 1+ (Negative); Specific Gravity Urine 1.024 (1.000-1.030); Urobilinogen Urine Negative (Negative)
[2022-05-22 06:18] LABS: Base Excess ABG -10.1 mEq/L (-9-1.8); HCO3 ABG 14 mmol/L (19-24); Oxygen Saturation ABG 94.7 % (90-95); PCO2 ABG 27 mmHg (35-46); PO2 ABG 68 mmHg (80-95); pH ABG 7.33 (7.35-7.45)
[2022-05-22 06:26] LABS: Allen Test Pos (Pos)
[2022-05-22 06:31] LABS: Acetaminophen < 3 ug/ml (10-30); Salicylate < 3.0 mg/dl (3.0-30)
[2022-05-22 06:37] LABS: RBC Urine Automated 0-4 /hpf (0-4)
[2022-05-22 06:41] LABS: Albumin Globulin Ratio 1.1 (0.9-2); Albumin Level 2.5 gm/dl (3.4-5.0); BUN Creatinine Ratio 18.7 (10-20); Bilirubin,Total 0.4 mg/dl (0.2-1.0); Calcium 7.3 mg/dl (8.5-10.1); Est GFR (African American) 22.2 ml/min; Est GFR (Non-African American) 19.1 ml/min; Globulin 2.2 gm/dl (2.5-4.0); Potassium 3.9 mmol/L (3.5-5.1); Total Protein 4.7 gm/dl (6.0-8.3)
--- NOTE | 2022-05-22 07:40 | CT Scan Report ---
CT abd pelvis wo con CLINICAL HISTORY: n/v/d TECHNIQUE: Helical axial images of the abdomen and pelvis were obtained. Automated dose lowering tech niques and/or adjustment according to patient size were utilized for this exam. This exam was perfor med without intravenous contrast. CT DOSE: 1403.46 mGy.cm COMPARISON: Comparison is made to CT abdomen pelvis 01/18/2018 FINDINGS: Lower chest: Bibasilar atelectasis versus scarring is seen. Liver: Unremarkable. No focal lesions are seen. Gallbladder and biliary tree: Patient is status post cholecystectomy. Physiologic prominence of the b iliary ducts is noted. Pancreas: Unremarkable, no focal lesions. Spleen: Unremarkable. Adrenals: Unremarkable. Kidneys and ureters: Perinephric stranding is noted bilaterally. Bladder: Limited evaluation due to underdistention. Reproductive organs: Patient is status post hysterectomy. Bowel: Diverticulosis is seen without evidence of diverticulitis. The appendix is unremarkable. No ev idence of bowel obstruction is seen. There is a moderate hiatal hernia. Lymph nodes Retroperitoneal: Unremarkable. Pelvic: Unremarkable. Mesenteric: Subcentimeter lymph nodes are noted. Peritoneum: Fat containing umbilical hernia is seen. Vessels: Unremarkable. Abdominal wall: Soft tissue stranding is seen in the region of the buttocks, partially visualized. Bones: Posterior fixation hardware seen in the spine. Degenerative changes are seen. No evidence of a cute fracture. IMPRESSION: 1. No evidence of bowel obstruction. 2. Partially visualized, there is soft tissue stranding in the buttocks which may represent trauma o r cellulitis. Clinical correlation is recommended. No evidence of osteomyelitis is seen. 3. Additional findings as above. ACT 112: Negative or not required by law. Electronically signed by: Edison Berry M.D. 05/22/2022 7:39 AM
[2022-05-22] MEDS ORDERED: ICU PROTOCOL FOR HYPERGLYCEMIA PRN (08:25)
[2022-05-22] MEDS ORDERED: ALBUTEROL 0.083% NEBU SOLN 3 ML VIAL INH PRN (08:25)
[2022-05-22] MEDS ORDERED: STAT IV STA (08:31)
[2022-05-22] MEDS ORDERED: LACTATED RINGER'S 2,000 ML IV ONE (08:31)
[2022-05-22] MEDS ORDERED: ALBUTEROL HFA 8 GM INHALER INH PRN (08:47)
[2022-05-22] MEDS ORDERED: CALCIUM GLUCONATE 10% 2,000 MG in DEXTROSE 5% 50 ML IV ONE (08:50)
--- NOTE | 2022-05-22 08:52 | Critical Care Consultation ---
Date of Consultation May 22, 2022 Assessment & Plan (1) Overdose of trazodone: (2) Hypotension: (3) Anxiety: (4) Asthma: (5) Hypothyroidism: (6) Diabetes mellitus, type II: (7) Depression: (8) Leukocytosis: Plan Cheyanne is a 76 year old female admitted to the ICU for monitoring after Trazodone overdose. Neuro CAM ICU: Positive. Trazodone overdose/AMS: -Patient endorses intake of surplus Trazodone (possibly 25 pills), also has home oxycodone for pain, history of vascular dementia. -Glucose WNL, hyponatremic to 121 however electrolytes not grossly abnormal. -Most likely lethargic secondary to Trazodone overdose - patient endorses suicidal intent. -Hold home pain medications such as trazodone, oxycodone, pregabalin, cyclobenzaprine. -Patient on 1:1 observation, psychiatry consulted - meets criteria for inpatient psychiatric care once medically stable. Opioid dependence: -Has oxycodone at home for back pain, last filled 04/25 30 day supply (90 tablets). Was weaning off oxycodone. -Removed Buprenorphine patch, will substitute with sublingual buprenorphine. Vascular Dementia: -Continue home donepezil and memantine. Anxiety/Depression: -Intentional overdose of Trazodone, possibly 25 pills of Trazodone. -Admitted to hospital for suicidal intentional overdose of Trazodone. -Hold on Wellbutrin, Duloxetine while returning to baseline mental status. Cardiac Hypotension: -A few hypotensive episodes in the ED - improved with fluids. -Given 1L NS on way over, 1L LR in ED, ordered 2L LR bolus. -Maintain MAP >65. Dyslipidemia: -Can hold home omega 3 fish oil pills for now. Respiratory No history of respiratory disease. Patient saturating well on RA. GI Can trial on clear liquids, advance as tolerated. Constipation/Diarrhea: -Constipation for past week followed by diarrhea following magnesium citrate + miralax for a few days. -No overt stool burden seen on CT A/P. Continue to monitor. Renal/Electrolytes VJ: -Patient with diarrhea and decreased PO intake at home. -Creatinine 2.42 in ED, baseline 0.8. -U/A w/ epithelial cells, casts, 1+ protein, 3+ blood. -FENa 0.3% - most likely pre-renal etiology. -Nephrology consulted. -Repleted fluids as above. Keep on maintenance fluid 100ml/hr. Hyponatremia: -Na 121 in ED. Past history of chronic mild to moderate hyponatremia. -Serum Osmol 267, Urine osmol 322, random urine sodium 15. -Hypotonic hyponatremia w/ low urine sodium indicates most likely extrarenal loss from diarrhea. -Repleted 1L NS in ED, 2L LR bolus, continue on maintenance fluid at 100ml/hr. -Serial BMPs to monitor. Lactic Acidosis: -Lactate 7.7 on arrival, down to 5.2 this morning. -CPK 1230. -No acute respiratory distress, saturating well, glucose within normal limits. -may be from soft tissue infection vs dehydration -Repleted 3L LR. Continue with fluid maintenance at 100ml/hr. -Continue to trend lactate q12, CPK serially. Hypocalcemia/Hypomagnesemia: Repleted 2g CaGluconate, 1g MgSulfate. Strict I&O's. Endo T2DM: -Hold home diabetes medications, SSI. -ICU hyperglycemia protocol Hypothyroidism: -Continue home levothyroxine. Heme Anemia: -Hgb 9.8, in the past hemoglobin between 8-13 -Ferritin 11/2021 5, low - most likely iron deficiency anemia. -May benefit from iron supplementation. ID Leukocytosis: -WBC 34 on admission to the hospital. Blood and urine cultures pending. Afebrile. -Lactic acid 7.7 -> 7.2 -> 5.6. Procalcitonin 14.98 however in setting of VJ. -U/A w/ epithelial cells and casts, no nitrite, LE, bacteria. -CT w/ evidence of soft tissue stranding in buttocks, no evidence of hydronephrosis or diverticulitis. -May be secondary to darcy-anal soft tissue infection. -Started empirically on Zosyn. -Wound care consulted. Lines/IV Access Peripheral IVs. DVT Prophylaxis SCDs Dispo: ICU. Supervising Physician Co-Signing Physician Notes Patient seen and examined. EMR reviewed. Discussed with hospitalist and with bedside critical care nurse and on multidisciplinary rounds. Patient presents with evidence of septic shock with acute kidney injury. She has evidence of rhabdomyolysis as well. Source may be soft tissue. She has been initiated on Zosyn in the emergency room. We will follow-up on cultures. I think she is under resuscitated so we will give additional fluids at this point time. Continue to follow clinically for potential need for vasopressor agents. The patient's acute kidney injury likely represents a prerenal state. We will check urine creatinine and sodium for calculation of fractional excretion of sodium. Nephrology consultation pending. Bicarb for metabolic acidosis. Replace calcium magnesium and other electrolytes. Patient does endorse suicidal ideation. Behavioral health consultation is currently pending. We will need to get her medically stabilized before behavioral health can engage. Will discontinue her chronic pain patches and replace with sublingual buprenorphine as well as as needed immediate acting oxycodone. Patient can advance diet to clears as tolerated. The patient is critically ill at this point time with significant possibility of clinical deterioration and/or . A total of 55 minutes in critical care time was spent evaluation management stabilization of this patient to this point. History of Present Illness Reason for Consultation: Overdose Attending Physician: Rere Ramsey MD History of Present Illness Cheyanne is a 76 year old female w/ PmHx T2DM, dyslipidemia, asthma, hyp othyroidism, vascular dementia, sleep apnea, chronic back pain requiring opioid pain control, anxiety/depression coming in to the hospital for overdose of Trazodone. Patient endorsed taking extra trazodone around 9-9:30PM last night with the suicidal intent. She had been constipated over the past week and took miralax as well as magnesium citrate for the constipation and developed some diarrhea due to the OTC treatment regimen. She also developed nausea with decreased intake as a result. Sunday night saw the patient in a weakened state and he helped her down. EMS was called, she was somnolent but arousable, started on IV fluids and brought to the ED. In the ED she had improved mentation with fluids, found to have a leukocytosis to 34, hgb 9.8, Na 121, Creat 2.41, lactate 7.7, trop 26.5, procal 14.18, urine tox negative. Upon transfer to the ICU patient still endorses feeling tired and the most painful thing at the moment being her darcy-rectal area. The darcy-rectal pain had been there since Sunday. Denies any fevers, shortness of breath, chest pain. Patient endorses taking around 25 pills of her Trazodone with suicidal intent, however difficult to elicit further history as patient states she is tired and wants to sleep. Allergies Allergy/AdvReac Type Severity Reaction Status Date / Time miconazole Allergy Intermediate SEVERE Verified 05/22/22 02:54 BURNING ITCHING morphine Allergy Intermediate ITCHING, Verified 05/22/22 02:54 ABD PAIN erythromycin base Allergy Unknown Unknown Verified 05/22/22 02:54 baclofen AdvReac Intermediate NAUSEA/VOMI Verified 05/22/22 02:54 TING clonazepam AdvReac Intermediate PSYCH Verified 05/22/22 02:54 COMPLICATIONS codeine AdvReac Intermediate DYSPEPSIA Verified 05/22/22 02:54 doxycycline AdvReac Intermediate GASTRITIS Verified 05/22/22 02:54 gabapentin AdvReac Intermediate FATIGUE Verified 05/22/22 02:54 Macrolide Antibiotics AdvReac Intermediate DYSPEPSIA Verified 05/22/22 02:54 (TOLERATED Z-PACK) primidone AdvReac Intermediate PSYCH Verified 05/22/22 02:54 COMPLICATIONS Home Medications Medication Instructions Recorded Confirmed Type albuterol sulfate 90 mcg/actuation 2 inh inhalation Q4H PRN SHORT OF 02/13/19 05/22/22 History breath activated powder inhaler BREATH bupropion HCl 100 mg tablet,12 hr 100 mg PO BID 02/13/19 05/22/22 History sustained-release (Wellbutrin SR) celecoxib 200 mg capsule (Celebrex) 200 mg PO QAM 02/13/19 05/22/22 History cholecalciferol (vitamin D3) 25 1,000 unit PO QAM 02/13/19 05/22/22 History mcg (1,000 unit) tablet (Vitamin D3) cyclobenzaprine 5 mg tablet 5 mg PO Q6H PRN Pain 02/13/19 05/22/22 History donepezil 10 mg tablet (Aricept) 10 mg PO HS 02/13/19 05/22/22 History esomeprazole magnesium 40 mg 40 mg PO QAM 02/13/19 05/22/22 History capsule,delayed release (Nexium) ezetimibe 10 mg-simvastatin 20 mg 1 tab PO HS 02/13/19 05/22/22 History tablet (Vytorin) fluticasone propionate 50 2 spray intranasal HS 02/13/19 05/22/22 History mcg/actuation nasal spray,suspension (Flonase Allergy Relief) folic acid 0.8 mg capsule 0.8 mg PO QAM 02/13/19 05/22/22 History lamotrigine 150 mg tablet 150 mg PO HS 02/13/19 05/22/22 History (Lamictal) levothyroxine 100 mcg tablet 100 mcg PO QAM 02/13/19 05/22/22 History memantine 14 mg capsule 14 mg PO QAM 02/13/19 05/22/22 History sprinkle,extended release 24hr (Namenda XR) metformin 1,000 mg tablet 1,000 mg PO BID 02/13/19 05/22/22 History montelukast 10 mg tablet 10 mg PO HS 02/13/19 05/22/22 History (Singulair) gjztitdrkkey-dxcvopmf-ycjxuz 1 tab PO QAM 02/13/19 05/22/22 History tablet (Multivitamin 50 Plus tablet) vitamin E 268 mg (400 unit) capsule 400 unit PO HS 02/13/19 05/22/22 History trazodone 50 mg tablet 25 mg PO HS 11/13/19 05/22/22 History famotidine 40 mg tablet (Pepcid) 40 mg PO BID 04/12/20 05/22/22 History duloxetine 60 mg capsule,delayed 60 mg PO BID 05/19/21 05/22/22 History release (Cymbalta) furosemide 40 mg tablet 40 mg PO DAILY #90 tabs 11/22/21 05/22/22 Rx acetaminophen 650 mg 1,300 mg PO AMHS 01/19/22 05/22/22 History tablet,extended release aspirin 81 mg tablet,delayed 81 mg PO DAILY 01/19/22 05/22/22 History release (Yolis Low Dose Aspirin) buspirone 5 mg tablet 5 mg PO BID 01/19/22 05/22/22 History calcium carbonate 600 mg-vitamin 1 tab PO BID 01/19/22 05/22/22 History D3 20 mcg (800 unit) chewable tablet (Caltrate 600 plus D) cyanocobalamin (vitamin B-12) 1,000 mcg PO DAILY 01/19/22 05/22/22 History 1,000 mcg tablet (Vitamin B-12) fluticasone furoate 200 1 ea inhalation DAILY 01/19/22 05/22/22 History mcg-vilanterol 25 mcg/dose inhalation powder (Breo Ellipta) omega 0-xcf-xwp-fish oil 1,200 mg 1 cap PO BID 01/19/22 05/22/22 History (144 mg-216 mg) capsule (Fish Oil) lisinopril 40 mg tablet 40 mg PO DAILY #90 tabs 04/04/22 05/22/22 Rx L.acidoph-L.rhamn-B.bifidum-B.long 1 tab PO DAILY 05/22/22 05/22/22 History 12.9 mg (2 billion cell) tablet DR (Probiotic Acidophilus Violeta) albuterol sulfate 2.5 mg/3 mL 2.5 mg inhalation DIRECTED PRN 05/22/22 05/22/22 History (0.083 %) solution for nebulization Shortness Of Breath Or Wheezing benzonatate 100 mg capsule 100 mg PO TID PRN Cough 05/22/22 05/22/22 History buprenorphine 20 mcg/hour weekly 1 patch transdermal Q7D 05/22/22 05/22/22 H istory transdermal patch magnesium oxide 400 mg PO Q OTHER DAY 05/22/22 05/22/22 History ondansetron HCl 4 mg tablet 4 mg PO Q6H PRN NAUSEA/VOMITING 05/22/22 05/22/22 History pregabalin 50 mg capsule (Lyrica) 50 mg PO BID 05/22/22 05/22/22 History Patient History Medical History (Updated 05/22/22 @ 15:22 by Evelia Pulido MD) Acute hyponatremia Acute kidney injury Anemia Anxiety Asthma STABLE Cyclothymic disorder MOOD DISORDER Depression Diabetes mellitus, type 2 NIDDM Dry eye syndrome Dyspepsia CHRONIC FELT D/T MEDICATION INTERACTIONS (POLYPHARMACY) Fibromyalgia GERD (gastroesophageal reflux disease) OCCASIONAL History of blood transfusion REMOTE POST-OP Hyperlipidemia Hypertension Hyponatremia Hypothyroidism Kidney stones Metabolic acidosis with increased anion gap and accumulation of organic acids Migraine 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 Osteoarthritis Peripheral neuropathy B/L UE/LE Sleep apnea BIPAP Spinal stenosis Ventral hernia Surgical History Fusion of spine LUMBAR X2 H/O foot surgery RIGHT HAMMERTOE AND BUNION REPAIR H/O: hysterectomy + ANTERIOR/POSTERIOR REPAIR History of bladder surgery SUSPENSION History of cataract surgery RIGHT/LEFT History of section History of cholecystectomy History of colonoscopy History of esophagogastroduodenoscopy (EGD) History of shoulder surgery RIGHT SHOULDER History of surgery perianal fistula History of tonsillectomy Adenoidectomy History of tooth extraction History of total knee replacement RIGHT/LEFT History of vaginal hysterectomy Family History Mother Family history of diabetes mellitus COPD (chronic obstructive pulmonary disease) Diabetes Hypertension Brother Family history of diabetes mellitus Diabetes Renal failure Sister Family history of diabetes mellitus Malignant melanoma Uncle Family hx of colon cancer Colorectal cancer Paternal Aunt Breast cancer Maternal Ovarian cancer Paternal Social History Smoking Status: Never smoker Second Hand Exposure: No; Hx Alcohol Use: No Hx Substance Use: No Preferred Language: Portuguese Communication Ability: Effective Visual Impairment: Limited Hearing Ability: Normal Gig Tender Required: No Beliefs That Will Affect Care: None marital status: Current Living Situation: Spouse Feels Safe at Home: Yes Assistive Devices: Cane, Hearing Aid - Bilateral, Walker and Wheelchair Review of Systems Constitutional: as per Subjective / HPI Physical Exam Constitutional: WD/WN, vitals as above Patient lethargic, answers questions but slowly. Respiratory: normal respiratory effort, lungs clear to auscultation Cardiovascular: II/ holosystolic murmur most prominent at the left upper sternal border, RRR. Gastrointestinal (Abdomen): normal bowel sounds, soft, nontender, no hepatosplenomegaly Skin: Mildly erythematous, edematous, indurated area surrounding anus w/ blanching and poor capillary refill. Results & Data Results & Data ([facility]) Vital Signs (Past 12 Hours) Vital Signs Temp Pulse Resp BP Pulse Ox O2 Del Method 05/22/22 07:50 96 H 20 104/52 L 91 05/22/22 07:53 96 H 20 104/52 L 91 Room Air 05/22/22 07:45 95 H 24 87/49 L 93 05/22/22 07:40 95 H 21 78/57 L 87 L 05/22/22 07:30 95 H 20 92/54 L 91 05/22/22 07:25 96 H 20 83/50 L 93 05/22/22 07:30 20 91 Room Air 05/22/22 07:21 97 H 21 78/51 L 93 05/22/22 07:15 96 H 19 86/46 L 05/22/22 07:11 99 H 20 84/57 L 91 05/22/22 07:00 97 H 13 100/48 L 95 05/22/22 06:56 100/45 L 93 05/22/22 06:50 97/37 L 90 05/22/22 07:00 19 91 Room Air 05/22/22 06:45 86 L 05/22/22 06:45 103/57 L 05/22/22 06:40 93 05/22/22 06:40 85/44 L 05/22/22 06:36 94 05/22/22 06:36 72/33 L 05/22/22 06:30 95 05/22/22 06:30 104/52 L 05/22/22 06:25 103/45 L 05/22/22 06:25 93 05/22/22 06:20 87/48 L 05/22/22 06:20 93 05/22/22 06:15 91 05/22/22 06:15 81/48 L 05/22/22 06:10 88 L 05/22/22 06:10 88/41 L 05/22/22 06:05 93 05/22/22 06:05 91/39 L 05/22/22 06:00 88 L 05/22/22 06:00 88/44 L 05/22/22 05:56 93 05/22/22 05:56 102/38 L 05/22/22 05:45 88 L 05/22/22 05:42 97 05/22/22 05:42 82/38 L 05/22/22 05:30 106 H 97 05/22/22 05:30 91/46 L 05/22/22 05:25 108 H 95 05/22/22 05:25 89/47 L 05/22/22 05:23 98 H 95 05/22/22 05:23 90/42 L 05/22/22 05:22 59/42 L 05/22/22 05:22 100 H 05/22/22 05:20 99 H 21 05/22/22 04:56 95 H 19 97 05/22/22 04:56 95/35 L 05/22/22 04:50 73/44 L 05/22/22 04:50 97 H 19 93 05/22/22 04:45 95 H 17 96 05/22/22 04:41 95 H 19 101/41 L 95 Room Air 05/22/22 04:38 95 H 13 75/45 L 95 Room Air 05/22/22 04:37 94 H 19 76/49 L 92 Room Air 05/22/22 04:36 96 H 15 89/44 L 92 Room Air 05/22/22 04:34 94 H 20 63/46 L 93 Room Air 05/22/22 03:01 92 H 17 111/45 L 94 05/22/22 02:58 93 H 113/52 L 94 Room Air 05/22/22 04:00 Room Air 05/22/22 03:30 Room Air 05/22/22 03:16 Room Air 05/22/22 03:32 96 Room Air 05/22/22 03:32 96 Room Air 05/22/22 02:54 93 H 17 113/52 L 93 Room Air 05/22/22 02:43 36.4 C L 101 H 20 118/46 L 95 Room Air Resident Activity Tracking Resident Involvement: Resident Care Provided Care Provided: Adult Hospital Medicine
--- NOTE | 2022-05-22 09:14 | XRay Report ---
XR chest 1V portable HISTORY: 76 years-old Female SEPSIS acute sepsis COMPARISON: Chest radiograph and CTA chest 05/14/2022 TECHNIQUE: Supine AP view of the chest FINDINGS: The cardiac silhouette is enlarged. No pneumothorax, pleural effusion, airspace consolidation or over t pulmonary edema. Degenerative changes of the spine and left shoulder. Cervical and thoracolumbar fu kenisha hardware with reverse right shoulder total joint arthroplasty. IMPRESSION: No acute process. ACT 112: Negative or not required by law. The above report was generated using voice recognition software. It may contain grammatical, syntax o r spelling errors. Electronically signed by: Montana Sierra M.D. 05/22/2022 9:12 AM
--- NOTE | 2022-05-22 09:18 | XRay Report ---
KUB HISTORY: Acute generalized abdominal pain abd pain COMPARISON: CT abdomen and pelvis of same day FINDINGS: Nonobstructive bowel gas pattern. No renal calculi. No ureteral calculi. No pneumoperitone um or pneumatosis. There is extensive thoracolumbar fusion hardware with bilateral iliac bolts. No fr acture. IMPRESSION: Nonobstructive bowel gas pattern. ACT 112: Negative or not required by law. The above report was generated using voice recognition software. It may contain grammatical, syntax o r spelling errors. Electronically signed by: Montana Sierra M.D. 05/22/2022 9:16 AM
[2022-05-22] MEDS: INSULIN ASPART PER UNIT SC SCH ×4 (09:23→20:23)
[2022-05-22] MEDS ORDERED: SODIUM BICARBONATE 8.4% INJ 50 MEQ/50 ML VIAL IV ONE (09:28)
[2022-05-22 09:53] LABS: BUN Creatinine Ratio 19.1 (10-20); Calcium 7.7 mg/dl (8.5-10.1); Creatinine Clr Calc Pharmacy 22.6 ml/min; Est GFR (African American) 22.9 ml/min; Est GFR (Non-African American) 19.7 ml/min; Potassium 3.9 mmol/L (3.5-5.1)
[2022-05-22] MEDS ORDERED: SODIUM BICARB 8.4% INJ 50 MEQ/50 ML SYR IV ONE (10:11)
[2022-05-22] MEDS: FLUTICASONE/VILANTEROL 200/25MCG 14 PUFFS/INHALER INH SCH (10:54)
[2022-05-22] MEDS: MAGNESIUM OXIDE 400 MG TAB PO SCH (10:55)
[2022-05-22] MEDS ORDERED: SODIUM BICARBONATE 8.4% INJ 50 MEQ/50 ML VIAL IV STA (10:55)
[2022-05-22] MEDS: SODIUM CHLORIDE 0.9% 1000ML 1,000 ML IV SCH ×2 (10:55→20:41)
[2022-05-22] MEDS: FAMOTIDINE 40 MG TABLET PO SCH ×2 (10:55→20:26)
[2022-05-22] MEDS: FOLIC ACID 400 MCG TAB PO SCH (10:55)
[2022-05-22] MEDS ORDERED: SODIUM BICARB 8.4% INJ 50 MEQ/50 ML SYR IV STA (10:57)
--- NOTE | 2022-05-22 11:46 | Nephrology Consultation ---
Date of Consultation May 22, 2022 Assessment & Plan (1) Acute kidney injury: (2) Acute hyponatremia: (3) Metabolic acidosis with increased anion gap and accumulation of organic acids: (4) Overdose of trazodone: (5) Leukocytosis: (6) Lactic acidosis: (7) Hypomagnesemia: Plan VJ and multiple electrolyte abnormality including hyponatremia, gap metabolic acidosis and lactic acidosis with no prior history of CKD. Presented with history of recent diarrhea, trazodone over does. urinalysis with microscopic hematuria but no proteinuria. Renal imaging showed bilateral otherwise normal size kidney. VJ most likely hemodynamically mediated with persistent hypotension, volume depletion. gap metabolic acidosis with VJ and elevated lactate with hypotension. Hyponatremia most likely related to volume depletion as well, Urine Na was low. Renal functional review of started to improve, creatinine down to 1.9, bicarb improved to 22 and anion gap closed. Lactate level improving. Blood pressure improved with systolic blood pressure staying in 120s to 130s. Sodium remained low at 121 with some reduce consciousness. --Hypertonic 3% saline 150 ml bolus x 1 dose, recheck S. Na aim to improve Na up to 128 by tomorrow am . Resume normal saline. Check Na q6h. --continue hemodynamic support, expect renal function to continue to improve as BP improving, continue to hold Lisinopril --although there is perinephric stranding on CT A/P, elevated WBC, unlikely pyelonephritis, no bacteria on UA, continue on Zosyn empirically pending culture Will follow Thank you for allowing me to participate in your patient's care. It was a pleasure to see Cheyanne History of Present Illness Reason for Consultation: acute kidney injury, hyponatremia and metabolic acidosis. Attending Physician: Duncan Rosales MD History of Present Illness Cheyanne Ritter is a 76-year-old female with past medical history significant for anxiety, depression admitted to the hospital with reduced responsiveness, VJ and trazodone overdose. Nephrology consult was requested to manage VJ and electrolyte abnormality including hyponatremia. EMR records were reviewed in detail during patient's visit. Cheyanne was brought to ER by EMS after her called with reduced responsiveness. She was found to be hypotensive, systolic blood pressure was lowest around 64. She has been having diarrhea since the day before and she reports taking laxative for history of constipation. She also took around 25 of trazodone in an attempt to kill herself in addition to oxycodone for chronic pain. On arrival to the ER she was much more responsive as she was already given IV fluid en route to ER. Lab showed VJ with creatinine 2.5, sodium 120, bicarb 16 with an anion gap of above 15. She was started with IV normal saline, sodium slightly improved to 121. UA with 1+ proteinuria, has 3+ microscopic hematuria, no bacteria. Elevated WBC. Lactate 7. CT A/P without contrast showed b/l normal size kidney but noted to have perinephric stranding. Has been on IV NS and Zosyn, received 2 L of LR. Has h/o anxiety, depression and chronic pain. H/O HTN, has been on Lisinopril 40 mg/d. BP improved and renal function slowly started to improve but Na remain low at 121. She was sleepy but arousable but did not communicate for answer questions. Allergies Allergy/AdvReac Type Severity Reaction Status Date / Time miconazole Allergy Intermediate SEVERE Verified 05/22/22 02:54 BURNING ITCHING morphine Allergy Intermediate ITCHING, Verified 05/22/22 02:54 ABD PAIN erythromycin base Allergy Unknown Unknown Verified 05/22/22 02:54 baclofen AdvReac Intermediate NAUSEA/VOMI Verified 05/22/22 02:54 TING clonazepam AdvReac Intermediate PSYCH Verified 05/22/22 02:54 COMPLICATIONS codeine AdvReac Intermediate DYSPEPSIA Verified 05/22/22 02:54 doxycycline AdvReac Intermediate GASTRITIS Verified 05/22/22 02:54 gabapentin AdvReac Intermediate FATIGUE Verified 05/22/22 02:54 Macrolide Antibiotics AdvReac Intermediate DYSPEPSIA Verified 05/22/22 02:54 (TOLERATED Z-PACK) primidone AdvReac Intermediate PSYCH Verified 05/22/22 02:54 COMPLICATIONS Home Medications Medication Instructions Recorded Confirmed Type albuterol sulfate 90 mcg/actuation 2 inh inhalation Q4H PRN SHORT OF 02/13/19 05/22/22 History breath activated powder inhaler BREATH bupropion HCl 100 mg tablet,12 hr 100 mg PO BID 02/13/19 05/22/22 History sustained-release (Wellbutrin SR) celecoxib 200 mg capsule (Celebrex) 200 mg PO QAM 02/13/19 05/22/22 History cholecalciferol (vitamin D3) 25 1,000 unit PO QAM 02/13/19 05/22/22 History mcg (1,000 unit) tablet (Vitamin D3) cyclobenzaprine 5 mg tablet 5 mg PO Q6H PRN Pain 02/13/19 05/22/22 History donepezil 10 mg tablet (Aricept) 10 mg PO HS 02/13/19 05/22/22 History esomeprazole magnesium 40 mg 40 mg PO QAM 02/13/19 05/22/22 History capsule,delayed release (Nexium) ezetimibe 10 mg-simvastatin 20 mg 1 tab PO HS 02/13/19 05/22/22 History tablet (Vytorin) fluticasone propionate 50 2 spray intranasal HS 02/13/19 05/22/22 History mcg/actuation nasal spray,suspension (Flonase Allergy Relief) folic acid 0.8 mg capsule 0.8 mg PO QA 02/13/19 05/22/22 History lamotrigine 150 mg tablet 150 mg PO HS 02/13/19 05/22/22 History (Lamictal) levothyroxine 100 mcg tablet 100 mcg PO QA 02/13/19 05/22/22 History memantine 14 mg capsule 14 mg PO [facility] 02/13/19 05/22/22 History sprinkle,extended release 24hr (Namenda XR) metformin 1,000 mg tablet 1,000 mg PO BID 02/13/19 05/22/22 History montelukast 10 mg tablet 10 mg PO HS 02/13/19 05/22/22 History (Singulair) ezfefgbbetol-gfuzjxmu-wzioii 1 tab PO QA 02/13/19 05/22/22 History tablet (Multivitamin 50 Plus tablet) vitamin E 268 mg (400 unit) capsule 400 unit PO HS 02/13/19 05/22/22 History trazodone 50 mg tablet 25 mg PO HS 11/13/19 05/22/22 History famotidine 40 mg tablet (Pepcid) 40 mg PO BID 04/12/20 05/22/22 History duloxetine 60 mg capsule,delayed 60 mg PO BID 05/19/21 05/22/22 History release (Cymbalta) furosemide 40 mg tablet 40 mg PO DAILY #90 tabs 11/22/21 05/22/22 Rx acetaminophen 650 mg 1,300 mg PO [facility] 01/19/22 05/22/22 History tablet,extended release aspirin 81 mg tablet,delayed 81 mg PO DAILY 01/19/22 05/22/22 History release (Yolis Low Dose Aspirin) buspirone 5 mg tablet 5 mg PO BID 01/19/22 05/22/22 History calcium carbonate 600 mg-vitamin 1 tab PO BID 01/19/22 05/22/22 History D3 20 mcg (800 unit) chewable tablet (Caltrate 600 plus D) cyanocobalamin (vitamin B-12) 1,000 mcg PO DAILY 01/19/22 05/22/22 History 1,000 mcg tablet (Vitamin B-12) fluticasone furoate 200 1 ea inhalation DAILY 01/19/22 05/22/22 History mcg-vilanterol 25 mcg/dose inhalation powder (Breo Ellipta) omega 0-rsu-lnw-fish oil 1,200 mg 1 cap PO BID 01/19/22 05/22/22 History (144 mg-216 mg) capsule (Fish Oil) lisinopril 40 mg tablet 40 mg PO DAILY #90 tabs 04/04/22 05/22/22 Rx L.acidoph-L.rhamn-B.bifidum-B.long 1 tab PO DAILY 05/22/22 05/22/22 History 12.9 mg (2 billion cell) DR michelle (Probiotic Acidophilus Violeta) albuterol sulfate 2.5 mg/3 mL 2.5 mg inhalation DIRECTED PRN 05/22/22 05/22/22 History (0.083 %) solution for nebulization Shortness Of Breath Or Wheezing benzonatate 100 mg capsule 100 mg PO TID PRN Cough 05/22/22 05/22/22 History buprenorphine 20 mcg/hour weekly 1 patch transdermal Q7D 05/22/22 05/22/22 History transdermal patch magnesium oxide 400 mg PO Q OTHER DAY 05/22/22 05/22/22 History ondansetron HCl 4 mg tablet 4 mg PO Q6H PRN NAUSEA/VOMITING 05/22/22 05/22/22 History pregabalin 50 mg capsule (Lyrica) 50 mg PO BID 05/22/22 05/22/22 History Patient History Medical History (Updated 05/22/22 @ 15:22 by Evelia Pulido MD) Acute hyponatremia Acute kidney injury Anemia Anxiety Asthma STABLE Cyclothymic disorder MOOD DISORDER Depression Diabetes mellitus, type 2 NIDDM Dry eye syndrome Dyspepsia CHRONIC FELT D/T MEDICATION INTERACTIONS (POLYPHARMACY) Fibromyalgia GERD (gastroesophageal reflux disease) OCCASIONAL History of blood transfusion REMOTE POST-OP Hyperlipidemia Hypertension Hyponatremia Hypothyroidism Kidney stones Metabolic acidosis with increased anion gap and accumulation of organic acids Migraine 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 Osteoarthritis Peripheral neuropathy B/L UE/LE Sleep apnea BIPAP Spinal stenosis Ventral hernia Surgical History Fusion of spine LUMBAR X2 H/O foot surgery RIGHT HAMMERTOE AND BUNION REPAIR H/O: hysterectomy + ANTERIOR/POSTERIOR REPAIR History of bladder surgery SUSPENSION History of cataract surgery RIGHT/LEFT History of section History of cholecystectomy History of colonoscopy History of esophagogastroduodenoscopy (EGD) History of shoulder surgery RIGHT SHOULDER History of surgery perianal fistula History of tonsillectomy Adenoidectomy History of tooth extraction History of total knee replacement RIGHT/LEFT History of vaginal hysterectomy Family History Mother Family history of diabetes mellitus COPD (chronic obstructive pulmonary disease) Diabetes Hypertension Brother Family history of diabetes mellitus Diabetes Renal failure Sister Family history of diabetes mellitus Malignant melanoma Uncle Family hx of colon cancer Colorectal cancer Paternal Aunt Breast cancer Maternal Ovarian cancer Paternal Social History Smoking Status: Never smoker Second Hand Exposure: No; Hx Alcohol Use: No Hx Substance Use: No Preferred Language: Slovak Communication Ability: Effective Visual Impairment: Limited Hearing Ability: Normal Artificial Flowers Starcher Required: No Beliefs That Will Affect Care: None marital status: Current Living Situation: Spouse Feels Safe at Home: Yes Assistive Devices: Cane, Hearing Aid - Bilateral, Walker and Wheelchair Review of Systems Review of Systems: Detail ROS was not possible due to reduced consciousness. Physical Exam Constitutional: WD/WN, vitals as above + ill appearing and + altered mental status; no acute distress Eyes: + anicteric sclerae Neck: normal visual inspection Respiratory: normal respiratory effort; no respiratory distress and no cough Auscultation: lungs clear to auscultation bilaterally Cardiovascular: Rate/Rhythm: regular rate and regular rhythm Heart Sounds: normal S1 and normal S2 Extremities: no edema Gastrointestinal (Abdomen): Inspection/Auscultation: abdomen normal to inspection and normal bowel sounds Percussion/Palpation: abdomen soft; abdomen nontender Musculoskeletal: Extremities: extremities normal to inspection Skin: no rashes Neurologic: moves all extremities; no focal motor deficits Speech / Cognition: + abnormal cognition decreased responsiveness. Psychiatric: Could not be assessed. Results & Data ([facility]) Vital Signs (Past 12 Hours) Vital Signs Temp Pulse Resp BP BP Pulse Ox O2 Del Method 05/22/22 10:31 98 H 19 101/51 L 91 05/22/22 10:30 95 H 15 91 05/22/22 10:15 95 H 25 H 94 05/22/22 10:00 94 H 16 95 05/22/22 10:00 102/47 L 05/22/22 09:45 94 H 29 H 95 05/22/22 09:39 93/52 L 05/22/22 09:39 95 H 21 97 05/22/22 09:30 93 H 13 96 05/22/22 09:15 93 H 17 05/22/22 09:01 128/96 05/22/22 09:01 93 H 21 96 05/22/22 09:00 94 H 26 H 05/22/22 08:45 99 H 15 84 L 05/22/22 08:30 96 H 16 81 L 05/22/22 08:25 108/22 L 05/22/22 08:25 97 H 17 90 05/22/22 08:23 82/45 L 05/22/22 08:23 95 H 22 96 05/22/22 08:15 98 H 20 96 05/22/22 08:13 95 05/22/22 08:44 Room Air 05/22/22 08:44 36.7 C 18 108/22 L 97 Room Air 05/22/22 07:50 96 H 20 104/52 L 91 05/22/22 07:53 96 H 20 104/52 L 91 Room Air 05/22/22 07:45 95 H 24 87/49 L 93 05/22/22 07:40 95 H 21 78/57 L 87 L 05/22/22 07:30 95 H 20 92/54 L 91 05/22/22 07:25 96 H 20 83/50 L 93 08/08/22 07:30 20 91 Room Air 05/22/22 07:21 97 H 21 78/51 L 93 05/22/22 07:15 96 H 19 86/46 L 05/22/22 07:11 99 H 20 84/57 L 91 05/22/22 07:00 97 H 13 100/48 L 95 05/22/22 06:56 100/45 L 93 05/22/22 06:50 97/37 L 90 05/22/22 07:00 19 91 Room Air 05/22/22 06:45 86 L 05/22/22 06:45 103/57 L 05/22/22 06:40 93 05/22/22 06:40 85/44 L 05/22/22 06:36 94 05/22/22 06:36 72/33 L 05/22/22 06:30 95 05/22/22 06:30 104/52 L 05/22/22 06:25 103/45 L 05/22/22 06:25 93 05/22/22 06:20 87/48 L 05/22/22 06:20 93 05/22/22 06:15 91 05/22/22 06:15 81/48 L 05/22/22 06:10 88 L 05/22/22 06:10 88/41 L 05/22/22 06:05 93 05/22/22 06:05 91/39 L 05/22/22 06:00 88 L 05/22/22 06:00 88/44 L 05/22/22 05:56 93 05/22/22 05:56 102/38 L 05/22/22 05:45 88 L 05/22/22 05:42 97 05/22/22 05:42 82/38 L 05/22/22 05:30 106 H 97 05/22/22 05:30 91/46 L 05/22/22 05:25 108 H 95 05/22/22 05:25 89/47 L 05/22/22 05:23 98 H 95 05/22/22 05:23 90/42 L 05/22/22 05:22 59/42 L 05/22/22 05:22 100 H 05/22/22 05:20 99 H 21 05/22/22 04:56 95 H 19 97 05/22/22 04:56 95/35 L 05/22/22 04:50 73/44 L 05/22/22 04:50 97 H 19 93 05/22/22 04:45 95 H 17 96 05/22/22 04:41 95 H 19 101/41 L 95 Room Air 05/22/22 04:38 95 H 13 75/45 L 95 Room Air 05/22/22 04:37 94 H 19 76/49 L 92 Room Air 05/22/22 04:36 96 H 15 89/44 L 92 Room Air 05/22/22 04:34 94 H 20 63/46 L 93 Room Air 05/22/22 03:01 92 H 17 111/45 L 94 05/22/22 02:58 93 H 113/52 L 94 Room Air 05/22/22 04:00 Room Air 05/22/22 03:30 Room Air 05/22/22 03:16 Room Air 05/22/22 03:32 96 Room Air 05/22/22 03:32 96 Room Air 05/22/22 02:54 93 H 17 113/52 L 93 Room Air 05/22/22 02:43 36.4 C L 101 H 20 118/46 L 95 Room Air PG Care Time/CCT Total # of Minutes Spent Total Time Spent with Patient: Total time spent is greater than 50% in coordination of care (as documented) at patient's floor/unit and/or counseling patient: Coding Level of Care Code 95515 Initial Inpt Care Lvl 3 Diagnoses Acute kidney injury N17.9 Acute hyponatremia E87.1 Metabolic acidosis with increased anion gap and accumulation of organic acids E87.2 Overdose of trazodone T43.211A Leukocytosis D72.829 Lactic acidosis E87.2 Hypomagnesemia E83.42
[2022-05-22] MEDS: LEVOTHYROXINE SODIUM 100 MCG TABLET PO SCH (11:48)
--- NOTE | 2022-05-22 11:48 | History & Physical Report ---
Date of Service May 22, 2022 Assessment & Plan (1) Overdose of trazodone: Plan: - patient expressed intentional overdose of trazodone - found to be somnolent but arousable - found to have WBC 34, lactic acidosis 7, Cr 2.35 (baseline 0.81), bicarb 19 - given IVF and abx in ED - transfer to ICU for close monitoring - trend lactic acid, WBC - poison control contacted - renal consulted (2) Sepsis: Plan: - likely related to acute overdose - cannot rule out infection - blood cultures, urine cultures sent - UA negative for infection - continue broad spectrum abx per ICU pending culture results - trend WBC (3) Hyponatremia: Plan: - likely due to decrease po intake and diarrhea - hypochloremic as well points toward above - IVF in ED - continue in ICU - renal following - trend Na (4) Lactic acidosis: Plan: - likely related to acute overdose - IVF and antibiotcs as above - trending down - continue to trend to clearance (5) Leukocytosis: Plan: - likely in the setting of acute overdose vs sepsis - management as above (6) Chronic pain: Plan: - holding pain medications given overdose - restart and titrate when able (7) Diabetes mellitus, type II: Plan: - takes metformin at home - hold while inpatient - monitor FSG AC+HS - ICU protocol while in ICU - diabetic diet when tolerating PO (8) Depression: Plan: - Suicidal ideation leading to acute overdose - medical management as above - psych consulted - observation 1:1 for pateint safety - reports not as much desire to hurt herself this morning but will continue to clsoely monitor (9) Hypothyroidism: Plan: - continue levothyroxine (10) Anemia: Plan: - hgb 9.8 on presentation - baseline around 12 - no signs of active bleeding - will monitor for now - transfuse for hgb <7.0 Plan DVT ppx: per ICU Full Code Dispo: ICU Duncan Rosales MD Hospital Medicine Admission and Anticipated Discharge Date Admission Date: May 22, 2022 History of Present Illness Primary Care Provider: Papo Keyes MD Cheyanne is a 76 year old woman w/ PmHx T2DM, HLD, asthma, hypothyroidism, vascular dementia, sleep apnea, chronic back pain requiring opioid pain control, anxiety/depression coming in to the hospital for overdose of Trazodone. Patient endorsed taking extra trazodone around 9-9:30PM last night with the suicidal intent. She had been constipated over the past week and took miralax as well as magnesium citrate for the constipation and developed some diarrhea due to the OT C treatment regimen. She also developed nausea with decreased intake as a result. Sunday night saw the patient in a weakened state and he helped her down. EMS was called, she was somnolent but arousable, started on IV fluids and brought to the ED. In the ED she had improved mentation with fluids, found to have a leukocytosis to 34, hgb 9.8, Na 121, Creat 2.41, lactate 7.7, trop 26.5, procal 14.18, urine tox negative. ICU was called for evaluation and accepted to ICU. Upon transfer to the ICU patient still endorses feeling tired and the most painful thing at the moment being her darcy-rectal area. The darcy- rectal pain had been there since Sunday. Denies any fevers, shortness of breath, chest pain. Patient endorses taking around 25 pills of her Trazodone with suicidal intent. On repeat evaluation, patient still endorsing some SI but reports "not as much as before." She expresses being fatigued and in pain in her sacral area. Allergies Allergy/AdvReac Type Severity Reaction Status Date / Time miconazole Allergy Intermediate SEVERE Verified 05/22/22 02:54 BURNING ITCHING morphine Allergy Intermediate ITCHING, Verified 05/22/22 02:54 ABD PAIN erythromycin base Allergy Unknown Unknown Verified 05/22/22 02:54 baclofen AdvReac Intermediate NAUSEA/VOMI Verified 05/22/22 02:54 TING clonazepam AdvReac Intermediate PSYCH Verified 05/22/22 02:54 COMPLICATIONS codeine AdvReac Intermediate DYSPEPSIA Verified 05/22/22 02:54 doxycycline AdvReac Intermediate GASTRITIS Verified 05/22/22 02:54 gabapentin AdvReac Intermediate FATIGUE Verified 05/22/22 02:54 Macrolide Antibiotics AdvReac Intermediate DYSPEPSIA Verified 05/22/22 02:54 (TOLERATED Z-PACK) primidone AdvReac Intermediate PSYCH Verified 05/22/22 02:54 COMPLICATIONS Home Medications Medication Instructions Recorded Confirmed Type albuterol sulfate 90 mcg/actuation 2 inh inhalation Q4H PRN SHORT OF 02/13/19 05/22/22 History breath activated powder inhaler BREATH bupropion HCl 100 mg tablet,12 hr 100 mg PO BID 02/13/19 05/22/22 History sustained-release (Wellbutrin SR) celecoxib 200 mg capsule (Celebrex) 200 mg PO QAM 02/13/19 05/22/22 History cholecalciferol (vitamin D3) 25 1,000 unit PO QAM 02/13/19 05/22/22 History mcg (1,000 unit) tablet (Vitamin D3) cyclobenzaprine 5 mg tablet 5 mg PO Q6H PRN Pain 02/13/19 05/22/22 History donepezil 10 mg tablet (Aricept) 10 mg PO HS 02/13/19 05/22/22 History esomeprazole magnesium 40 mg 40 mg PO QAM 02/13/19 05/22/22 History capsule,delayed release (Nexium) ezetimibe 10 mg-simvastatin 20 mg 1 tab PO HS 02/13/19 05/22/22 History tablet (Vytorin) fluticasone propionate 50 2 spray intranasal HS 02/13/19 05/22/22 History mcg/actuation nasal spray,suspension (Flonase Allergy Relief) folic acid 0.8 mg capsule 0.8 mg PO QAM 02/13/19 05/22/22 History lamotrigine 150 mg tablet 150 mg PO HS 02/13/19 05/22/22 History (Lamictal) levothyroxine 100 mcg tablet 100 mcg PO QAM 02/13/19 05/22/22 History memantine 14 mg capsule 14 mg PO QAM 02/13/19 05/22/22 History sprinkle,extended release 24hr (Namenda XR) metformin 1,000 mg tablet 1,000 mg PO BID 02/13/19 05/22/22 History montelukast 10 mg tablet 10 mg PO HS 02/13/19 05/22/22 History (Singulair) dsvxdefwlbau-mantkicr-hmtlyx 1 tab PO QAM 02/13/19 05/22/22 History tablet (Multivitamin 50 Plus tablet) vitamin E 268 mg (400 unit) capsule 400 unit PO HS 02/13/19 05/22/22 History trazodone 50 mg tablet 25 mg PO HS 11/13/19 05/22/22 History famotidine 40 mg tablet (Pepcid) 40 mg PO BID 04/12/20 05/22/22 History duloxetine 60 mg capsule,delayed 60 mg PO BID 05/19/21 05/22/22 History release (Cymbalta) furosemide 40 mg tablet 40 mg PO DAILY #90 tabs 11/22/21 05/22/22 Rx acetaminophen 650 mg 1,300 mg PO AMHS 01/19/22 05/22/22 History tablet,extended release aspirin 81 mg tablet,delayed 81 mg PO DAILY 01/19/22 05/22/22 History release (Yolis Low Dose Aspirin) buspirone 5 mg tablet 5 mg PO BID 01/19/22 05/22/22 History calcium carbonate 600 mg-vitamin 1 tab PO BID 01/19/22 05/22/22 History D3 20 mcg (800 unit) chewable tablet (Caltrate 600 plus D) cyanocobalamin (vitamin B-12) 1,000 mcg PO DAILY 01/19/22 05/22/22 History 1,000 mcg tablet (Vitamin B-12) fluticasone furoate 200 1 ea inhalation DAILY 01/19/22 05/22/22 History mcg-vilanterol 25 mcg/dose inhalation powder (Breo Ellipta) omega 4-plg-awv-fish oil 1,200 mg 1 cap PO BID 01/19/22 05/22/22 History (144 mg-216 mg) capsule (Fish Oil) lisinopril 40 mg tablet 40 mg PO DAILY #90 tabs 04/04/22 05/22/22 Rx L.acidoph-L.rhamn-B.bifidum-B.long 1 tab PO DAILY 05/22/22 05/22/22 History 12.9 mg (2 billion cell) DR michelle (Probiotic Acidophilus [employer]) albuterol sulfate 2.5 mg/3 mL 2.5 mg inhalation DIRECTED PRN 05/22/22 05/22/22 History (0.083 %) solution for nebulization Shortness Of Breath Or Wheezing benzonatate 100 mg capsule 100 mg PO TID PRN Cough 05/22/22 05/22/22 History buprenorphine 20 mcg/hour weekly 1 patch transdermal Q7D 05/22/22 05/22/22 History transdermal patch magnesium oxide 400 mg PO Q OTHER DAY 05/22/22 05/22/22 History ondansetron HCl 4 mg tablet 4 mg PO Q6H PRN NAUSEA/VOMITING 05/22/22 05/22/22 History pregabalin 50 mg capsule (Lyrica) 50 mg PO BID 05/22/22 05/22/22 History Past Med/Surg History Medical History Anemia Anxiety Asthma STABLE Cyclothymic disorder MOOD DISORDER Depression Diabetes mellitus, type 2 NIDDM Dry eye syndrome Dyspepsia CHRONIC FELT D/T MEDICATION INTERACTIONS (POLYPHARMACY) Fibromyalgia GERD (gastroesophageal reflux disease) OCCASIONAL History of blood transfusion REMOTE POST-OP Hyperlipidemia Hypertension Hyponatremia Hypothyroidism Kidney stones Migraine 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 Osteoarthritis Peripheral neuropathy B/L UE/LE Sleep apnea BIPAP Spinal stenosis Ventral hernia Surgical History Fusion of spine LUMBAR X2 H/O foot surgery RIGHT HAMMERTOE AND BUNION REPAIR H/O: hysterectomy + ANTERIOR/POSTERIOR REPAIR History of bladder surgery SUSPENSION History of cataract surgery RIGHT/LEFT History of section History of cholecystectomy History of colonoscopy History of esophagogastroduodenoscopy (EGD) History of shoulder surgery RIGHT SHOULDER History of surgery perianal fistula History of tonsillectomy Adenoidectomy History of tooth extraction History of total knee replacement RIGHT/LEFT History of vaginal hysterectomy Family History Mother Family history of diabetes mellitus COPD (chronic obstructive pulmonary disease) Diabetes Hypertension Brother Family history of diabetes mellitus Diabetes Renal failure Sister Family history of diabetes mellitus Malignant melanoma Uncle Family hx of colon cancer Colorectal cancer Paternal Aunt Breast cancer Maternal Ovarian cancer Paternal Social History Smoking Status: Never smoker Second Hand Exposure: No; Hx Alcohol Use: No Hx Substance Use: No Preferred Language: Bulgarian Communication Ability: Effective Visual Impairment: Limited Hearing Ability: Normal Placement Specialist Required: No Beliefs That Will Affect Care: None marital status: Current Living Situation: Spouse Feels Safe at Home: Yes Assistive Devices: Cane, Hearing Aid - Bilateral, Walker and Wheelchair Review of Systems Review of Systems: All systems reviewed & are unremarkable except as noted in Subjective Physical Exam Physical Exam: Constitutional:WD/WN, vitals as above Patient lethargic, answers questions but slowly. Respiratory:normal respiratory effort, lungs clear to auscultation Cardiovascular:II/ holosystolic murmur most prominent at the left upper sternal border, RRR. Gastrointestinal (Abdomen):normal bowel sounds, soft, nontender, no hepatosplenomegaly Extremities: no edema, bruisin Skin:Mildly erythematous, edematous, indurated area surrounding anus w/ blanching and poor capillary refill. Neuro: AAOx3, fatigued. Moving all extremities Results & Data Results & Data ([facility]) Vital Signs (Past 12 Hours) Vital Signs Temp Pulse Resp BP BP Pulse Ox O2 Del Method 05/22/22 10:31 98 H 19 101/51 L 91 05/22/22 10:30 95 H 15 91 05/22/22 10:15 95 H 25 H 94 05/22/22 10:00 94 H 16 95 05/22/22 10:00 102/47 L 05/22/22 09:45 94 H 29 H 95 05/22/22 09:39 93/52 L 05/22/22 09:39 95 H 21 97 05/22/22 09:30 93 H 13 96 05/22/22 09:15 93 H 17 05/22/22 09:01 128/96 05/22/22 09:01 93 H 21 96 05/22/22 09:00 94 H 26 H 05/22/22 08:45 99 H 15 84 L 05/22/22 08:30 96 H 16 81 L 05/22/22 08:25 108/22 L 05/22/22 08:25 97 H 17 90 05/22/22 08:23 82/45 L 05/22/22 08:23 95 H 22 96 05/22/22 08:15 98 H 20 96 05/22/22 08:13 95 05/22/22 08:44 Room Air 05/22/22 08:44 36.7 C 18 108/22 L 97 Room Air 05/22/22 07:50 96 H 20 104/52 L 91 05/22/22 07:53 96 H 20 104/52 L 91 Room Air 05/22/22 07:45 95 H 24 87/49 L 93 05/22/22 07:40 95 H 21 78/57 L 87 L 05/22/22 07:30 95 H 20 92/54 L 91 05/22/22 07:25 96 H 20 83/50 L 93 05/22/22 07:30 20 91 Room Air 05/22/22 07:21 97 H 21 78/51 L 93 05/22/22 07:15 96 H 19 86/46 L 05/22/22 07:11 99 H 20 84/57 L 91 05/22/22 07:00 97 H 13 100/48 L 95 05/22/22 06:56 100/45 L 93 05/22/22 06:50 97/37 L 90 05/22/22 07:00 19 91 Room Air 05/22/22 06:45 86 L 05/22/22 06:45 103/57 L 05/22/22 06:40 93 05/22/22 06:40 85/44 L 05/22/22 06:36 94 05/22/22 06:36 72/33 L 05/22/22 06:30 95 05/22/22 06:30 104/52 L 05/22/22 06:25 103/45 L 05/22/22 06:25 93 05/22/22 06:20 87/48 L 05/22/22 06:20 93 05/22/22 06:15 91 05/22/22 06:15 81/48 L 05/22/22 06:10 88 L 05/22/22 06:10 88/41 L 05/22/22 06:05 93 05/22/22 06:05 91/39 L 05/22/22 06:00 88 L 05/22/22 06:00 88/44 L 05/22/22 05:56 93 05/22/22 05:56 102/38 L 05/22/22 05:45 88 L 05/22/22 05:42 97 05/22/22 05:42 82/38 L 05/22/22 05:30 106 H 97 05/22/22 05:30 91/46 L 05/22/22 05:25 108 H 95 05/22/22 05:25 89/47 L 05/22/22 05:23 98 H 95 05/22/22 05:23 90/42 L 05/22/22 05:22 59/42 L 05/22/22 05:22 100 H 08/08/22 05:20 99 H 21 05/22/22 04:56 95 H 19 97 05/22/22 04:56 95/35 L 05/22/22 04:50 73/44 L 05/22/22 04:50 97 H 19 93 05/22/22 04:45 95 H 17 96 05/22/22 04:41 95 H 19 101/41 L 95 Room Air 05/22/22 04:38 95 H 13 75/45 L 95 Room Air 05/22/22 04:37 94 H 19 76/49 L 92 Room Air 05/22/22 04:36 96 H 15 89/44 L 92 Room Air 05/22/22 04:34 94 H 20 63/46 L 93 Room Air 05/22/22 03:01 92 H 17 111/45 L 94 05/22/22 02:58 93 H 113/52 L 94 Room Air 05/22/22 04:00 Room Air 05/22/22 03:30 Room Air 05/22/22 03:16 Room Air 05/22/22 03:32 96 Room Air 05/22/22 03:32 96 Room Air 05/22/22 02:54 93 H 17 113/52 L 93 Room Air 05/22/22 02:43 36.4 C L 101 H 20 118/46 L 95 Room Air Laboratory Results Short CBC 05/22/22 Range/Units 02:48 WBC 34.37 H* (4.8-10.8) K/ul Hgb 9.8 L (12.0-16.0) g/dl Hct 29.9 L (34.1-44.9) % Plt Count 277 (130-400) K/uL BMP 05/22/22 05/22/22 05/22/22 02:48 03:56 05:44 Sodium Cancelled 120 L 121 L Potassium Cancelled 4.2 3.9 Chloride Cancelled 89 L 88 L Carbon Dioxide Cancelled 16 L 17 L BUN Cancelled 45 H 45 H Creatinine Cancelled 2.42 H 2.41 H Glucose Cancelled 153 H 192 H Calcium Cancelled 7.8 L 7.3 L 05/22/22 09:16 Sodium 121 L Potassium 3.9 Chloride 90 L Carbon Dioxide 19 L BUN 45 H Creatinine 2.35 H Glucose 147 H Calcium 7.7 L Cardiac Enzymes 05/22/22 Range/Units 09:16 Total Creatine Kinase 1230 H (26-192) U/L Liver Function 05/22/22 05/22/22 05/22/22 Range/Units 02:48 03:56 05:44 Total Bilirubin Cancelled 0.4 0.4 AST Cancelled 61 H 58 H ALT Cancelled 38 37 Alkaline Phosphatase Cancelled 84 83 Albumin Cancelled 2.5 L 2.5 L Urine 05/22/22 Range/Units 05:50 Urine Color Dark Yellow Urine Appearance Cloudy A (Clear) Urine pH 5.0 (4.5-7.5) Ur Specific [place] 1.024 (1.000-1.030) Urine Protein 1+ H (Negative) Urine Glucose (UA) 1+ H (Negative) Diagnostic Findings Chest X-Ray 05/22/22 02:46 XR chest 1V portable HISTORY: 76 years-old Female SEPSIS acute sepsis COMPARISON: Chest radiograph and CTA chest 05/14/2022 TECHNIQUE: Supine AP view of the chest FINDINGS: The cardiac silhouette is enlarged. No pneumothorax, pleural effusion, airspace consolidation or overt pulmonary edema. Degenerative changes of the spine and left shoulder. Cervical and thoracolumbar fusion hardware with reverse right shoulder total joint arthroplasty. IMPRESSION: No acute process. ACT 112: Negative or not required by law. The above report was generated using voice recognition software. It may contain grammatical, syntax or spelling errors. Electronically signed by: Montana Sierra M.D. 05/22/2022 9:12 AM KUB X-Ray 05/22/22 02:46 KUB HISTORY: Acute generalized abdominal pain abd pain COMPARISON: CT abdomen and pelvis of same day FINDINGS: Nonobstructive bowel gas pattern. No renal calculi. No ureteral calculi. No pneumoperitoneum or pneumatosis. There is extensive thoracolumbar fusion hardware with bilateral iliac bolts. No fracture. IMPRESSION: Nonobstructive bowel gas pattern. ACT 112: Negative or not required by law. The above report was generated using voice recognition software. It may contain grammatical, syntax or spelling errors. Electronically signed by: Montana Sierra M.D. 05/22/2022 9:16 AM Abdomen/Pelvis CT 05/22/22 03:46 CT abd pelvis wo con CLINICAL HISTORY: n/v/d TECHNIQUE: Helical axial images of the abdomen and pelvis were obtained. Automated dose lowering techniques and/or adjustment according to patient size were utilized for this exam. This exam was performed without intravenous contrast. CT DOSE: 1403.46 mGy.cm COMPARISON: Comparison is made to CT abdomen pelvis 01/18/2018 FINDINGS: Lower chest: Bibasilar atelectasis versus scarring is seen. Liver: Unremarkable. No focal lesions are seen. Gallbladder and biliary tree: Patient is status post cholecystectomy. Physiologic prominence of the biliary ducts is noted. Pancreas: Unremarkable, no focal lesions. Spleen: Unremarkable. Adrenals: Unremarkable. Kidneys and ureters: Perinephric stranding is noted bilaterally. Bladder: Limited evaluation due to underdistention. Reproductive organs: Patient is status post hysterectomy. Bowel: Diverticulosis is seen without evidence of diverticulitis. The appendix is unremarkable. No evidence of bowel obstruction is seen. There is a moderate hiatal hernia. Lymph nodes Retroperitoneal: Unremarkable. Pelvic: Unremarkable. Mesenteric: Subcentimeter lymph nodes are noted. Peritoneum: Fat containing umbilical hernia is seen. Vessels: Unremarkable. Abdominal wall: Soft tissue stranding is seen in the region of the buttocks, partially visualized. Bones: Posterior fixation hardware seen in the spine. Degenerative changes are seen. No evidence of acute fracture. IMPRESSION: 1. No evidence of bowel obstruction. 2. Partially visualized, there is soft tissue stranding in the buttocks which may represent trauma or cellulitis. Clinical correlation is recommended. No evidence of osteomyelitis is seen. 3. Additional findings as above. ACT 112: Negative or not required by law. Electronically signed by: Edison Berry M.D. 05/22/2022 7:39 AM Medications Administered Current Inpatient Medications Albuterol (Albuterol Hfa 8 Gm Inhaler) 2 puffs INH Q4H PRN PRN Reason: SHORT OF BREATH Stop: 06/21/22 08:46 Albuterol (Albuterol 0.083% Nebu Soln 3 Ml Vial) 2.5 mg INH ONCE PRN; Protocol PRN Reason: SOB/WHEEZING Stop: 06/21/22 08:24 Donepezil HCl (Donepezil Hcl 10 Mg Tab) 10 mg PO HS [facility] Stop: 06/21/22 20:59 Famotidine (Famotidine 40 Mg Tablet) 40 mg PO BID [facility] Stop: 06/21/22 08:59 Last Admin: 05/22/22 10:55 Dose: 40 mg Fluticasone Propionate (Fluticasone Propionate Na Spr 16 Gm Btl) 2 sprays NA HS [facility] Stop: 06/21/22 20:59 Fluticasone/Vilanterol (Fluticasone/Vilanterol 200/25mcg 14 Puffs/Inhaler) 1 puffs INH DAILY [facility] Stop: 06/21/22 08:59 Last Admin: 05/22/22 10:54 Dose: 1 puffs Folic Acid (Folic Acid 400 Mcg Tab) 800 mcg PO QAM [facility] Stop: 06/21/22 08:59 Last Admin: 05/22/22 10:55 Dose: 800 mcg Sodium Chloride (Nss 1000ml) 1,000 mls @ 100 mls/hr IV .Q10H [facility] Stop: 06/21/22 07:59 Last Admin: 05/22/22 10:55 Dose: 100 mls/hr Piperacillin Sod/Tazobactam (Sod 3.375 gm/ Dextrose) 115 mls @ 28.75 mls/hr IV Q12H [facility]; Protocol Stop: 05/24/22 11:59 Insulin Aspart (Insulin Aspart Per Unit) 0 units SC ACHS [facility] Stop: 06/21/22 08:24 Last Admin: 05/22/22 09:23 Dose: Not Given Levothyroxine Sodium (Levothyroxine Sodium 100 Mcg Tablet) 100 mcg PO DAILYBB [facility] Stop: 06/21/22 08:59 Magnesium Oxide (Magnesium Oxide 400 Mg Tab) 400 mg PO Q2D@0900 [facility] Stop: 06/21/22 08:59 Last Admin: 05/22/22 10:55 Dose: 400 mg Memantine (Memantine Hcl 10 Mg Tab) 10 mg PO BID [facility] Stop: 06/22/22 08:59 Miscellaneous (Icu Protocol For Hyperglycemia) 1 each N/A PRN PRN; Protocol PRN Reason: Hyperglycemia Protocol Stop: 05/24/22 08:24 Montelukast Sodium (Montelukast Sodium 10 Mg Tablet) 10 mg PO HS [facility] Stop: 06/21/22 20:59 Pantoprazole Sodium (Pantoprazole 40 Mg Tab) 40 mg PO QAM [facility] Stop: 06/22/22 08:59 Code Status & VTE Plan Code Status Full Code VTE Prophylaxis Plan VTE Prophylaxis will be ordered: Yes
--- NOTE | 2022-05-22 11:50 | History and Physical Report ---
DATE OF ADMISSION: 05/22/2022. CHIEF COMPLAINT: Unresponsive episode, metabolic acidosis, hyponatremia. HISTORY OF PRESENT ILLNESS: This is a 76-year-old female with past medical history significant for type 2 diabetes, hyperlipidemia, hypothyroidism, chronic kidney disease stage III, asthma mild, persistent, history of sleep apnea, hypertension, history of multi-infarct dementia without behavioral disturbance, history of systolic murmur, GERD, obesity, vitamin B12 deficiency, fibromyalgia, back pain, late onset Alzheimer disease without behavioral disturbance, myelopathy, depression, cyclothymic disorder, agoraphobia, who lives at home with her , presents with an unresponsive episode. The patient was feeling weak. The patient is currently alert, awake, and oriented. Says she was weak and she was ambulating with a walker and when she went to bathroom, coming back, she was not able to get into her bed. Her tried to help her. She just laid on the floor. She says EMS was called and when the EMS arrived, she was unresponsive. She looked dry and she was given fluids. On the way in the ambulance, she woke up. By the time she came to the ER, she was alert and oriented. The patient says she was having constipation and she took mag citrate last night and she was having diarrhea, then she was also feeling a lot of nausea and not eating much since last 1 week. In the last 3 nights, she says, she took 2 tablets of trazodone trying to pass away, but , she states she just took extra 2 tablets, but when asked again she says she has dementia and she does not exactly remember how much she took. Currently in the ER, her systolic blood pressure is in the 80s and 90s. Her white count was 34,000. ABG, pH of 7.33, bicarbonate of 14. Sodium of 120, anion gap 16, creatinine 2.4. Lactate was 7.2. Troponin I high sensitivity 26. Procalcitonin 14.9. Urinalysis unremarkable. Salicylate less than 3, acetaminophen less than 3, ethyl alcohol less than 10. Rapid COVID test negative. CT of abdomen and pelvis without contrast, no acute findings.EKG showed QTc of 547. Denies any chest pain, denies shortness of breath. Currently, denies any headache or blurred visions. Has runny nose, has some sore throat. No cough, no fevers as per the patient. Urine is dark in the ER. ALLERGIES: MICONAZOLE, MORPHINE, ERYTHROMYCIN BASE, BACLOFEN, KLONOPIN, CODEINE, DOXYCYCLINE, GABAPENTIN, MACROLIDE ANTIBIOTICS, PRIMIDONE. PAST MEDICAL HISTORY: As mentioned above. PAST SURGICAL HISTORY: Anal fistula surgery, bilateral sacroiliac joint arthrodesis, bilateral knee arthroplasty, , colonoscopies, decompression of lumbar spine, EGDs, EGD with biopsy, EGD with endoscopic ultrasound, bilateral knee arthroscopy, lumbar fusion surgery, right bunionectomy, cervical spine fusion surgery, tonsillectomy, bilateral cataract surgery, cholecystectomy, revision of right shoulder arthroplasty, vaginal hysterectomy. MEDICATIONS: The patient is on Tylenol Arthritis b.i.d., albuterol 2 puffs inhalation q.4 hours p.r.n., albuterol nebulization p.r.n., aspirin 81 mg p.o. daily, benzonatate 100 mg p.o. t.i.d. p.r.n., buprenorphine 20 mcg per hour patch weekly, Wellbutrin 100 mg p.o. b.i.d., buspirone 5 mg p.o. b.i.d., calcium carbonate 1 tablet p.o. b.i.d., celecoxib 200 mg p.o. a.m., vitamin D 1000 units p.o. a.m., vitamin B12 1000 mcg p.o. daily, cyclobenzaprine 5 mg p.o. q.6 hours p.r.n., Aricept 10 mg p.o. at bedtime, duloxetine 60 mg p.o. b.i.d., Nexium 40 mg p.o. a.m., Vytorin 10/20 mg 1 tablet p.o. at bedtime, famotidine 40 mg p.o. b.i.d., Breo Ellipta 1 inhalation daily, Flonase 2 sprays intranasally at bedtime, folic acid 0.8 mg p.o. a.m., Lasix 40 mg p.o. daily, probiotics 1 tablet p.o. daily, Lamictal 150 mg p.o. at bedtime, levothyroxine 100 mcg p.o. daily, lisinopril 40 mg p.o. daily, magnesium oxide 400 mg p.o. every other day, Namenda XR 14 mg p.o. q.a.m., metformin 1000 mg p.o. b.i.d., Singulair 10 mg p.o. at bedtime, multivitamin 1 tablet p.o. a.m., fish oil 1 capsule p.o. b.i.d., Zofran 4 mg p.o. q.6 hours p.r.n., Lyrica 50 mg p.o. b.i.d., trazodone 25 mg p.o. at bedtime, vitamin E 400 international units p.o. at bedtime. FAMILY HISTORY: Significant for mother has asthma, endometrial cancer, diabetes, COPD; father in a MVA at the age of 46; aunt has breast cancer; another aunt has ovarian cancer; uncle has colon cancer; brother has diabetes; daughter has IBS. SOCIAL HISTORY: . No smoking, no alcohol, no drug use. REVIEW OF SYSTEMS: As per HPI. Rest of the review of systems is negative. PHYSICAL EXAMINATION: GENERAL: The patient is obese, not in acute distress currently. VITAL SIGNS: Temperature 36.4, pulse 96, respiratory rate 20, blood pressure when she came in was like 78/57, currently 104/52, oxygen 91% on room air. HEENT: Pupils equal, round and reactive to light. Oral mucosa dry. NECK: No JVD. No neck masses. CARDIOVASCULAR: S1 and S2 heard. Regular rate and rhythm. No murmur, no gallop. RESPIRATORY SYSTEM: Normal AP diameter. No accessory muscle use. No wheezing, no crackles. ABDOMEN: Soft, bowel sounds present. Mild diffuse discomfort, no guarding, no rigidity, no distention. CENTRAL NERVOUS SYSTEM: Alert and oriented x3, speaking in low volume. No facial droop. Speech is okay, though in low volumes. Insight is okay. Obeys simple commands. Moves extremities. EXTREMITIES: No edema, no erythema. LABORATORY DATA: WBC 34, hemoglobin 9.8, hematocrit 29.9, platelets 277. PT 12, INR 1.1, APTT 35. ABG; pH of 7.33, pCO2 of 27, pO2 of 68, bicarbonate 14, oxygen 94%. Sodium 121, potassium 3.9, chloride 88, bicarbonate 17, anion gap of 16, BUN 45, creatinine 2.4, serum glucose 192. Lactate 7.2, calcium 7.3, magnesium 1.9, total bilirubin 0.4, AST 58, ALT 37, alkaline phosphatase 83. Troponin I high sensitivity 26.5. Procalcitonin 14.9. Urinalysis cloudy, +3 blood. Salicylate less than 3, acetaminophen less than 3, ethyl alcohol less than 10. SARS-CoV-[address] of abdomen and pelvis without contrast: No acute findings. Chest x-ray: No acute findings. EKG: Poor quality data. Sinus rhythm with frequent PVCs at a rate of 94, QTc of 547. ASSESSMENT AND PLAN: This is a 76-year-old female who presents with an unresponsive episode and found to have metabolic acidosis, acute kidney injury and hyponatremia. 1. Unresponsive episode at home: Tried to call her , not able to reach. The patient says she took extra tablet of trazodone. She says she only took 2 tablets but not sure. She says she took it for trying to hurt herself. Discussed with Poison Control. They want to give magnesium, follow the EKG, lactic acid, magnesium levels and arterial blood gas levels within 6 hours. They said if the lactic acid is still elevated, they will consider metformin- induced lactic acidosis and notify the specialist. Currently, we will closely monitor in the intensive care unit. 2. Metabolic acidosis, bicarbonate of 14, anion gap 16: Discussed with nephrology. Advised to give normal saline at 100 mL per hour and follow the repeat laboratories. They said once the lactic acid is corrected, they think the bicarbonate gets corrected. 3. Acute kidney injury, creatinine of 2.4: Creatinine was 0.[address] of abdomen was okay. Possibly from prerenal. Getting fluids. Holding lasix and lisinopril. Follow the repeat laboratories. 4. Lactic acidosis and also leukocytosis: Procalcitonin is elevated. Source of infection is unclear. Chest is okay. Urinalysis was okay. Blood cultures and urine cultures are ordered in the Emergency Room. Empirically starting on Zosyn. We will monitor the blood pressure. We will follow the repeat lactic acid. Follow the cultures. 5. Hyponatremia, sodium when presented was 120, repeat is 121: Getting normal saline as above. Follow closely, repeat laboratories. Ordered urine osmolality, serum osmolality and urine sodium levels. Slow correction. Nephrology consulted. 6. History of diabetes: Hold metformin. Place on insulin sliding scale. Follow the blood sugars. 7. Hypertension: Currently hypotensive. Holding lisinopril and Lasix. We will monitor the blood pressure. 8. Hypothyroidism: On Synthroid. 9. Gastroesophageal reflux disease: On Nexium. 10. Asthma: Continue home inhalers. 11. History of multi-infarct dementia: On Aricept and Namenda, we will hold for now. Restart when able to. 12. Depression: We will hold Cymbalta and Lamictal for now. We will also get psychiatry consult when she is stable for her depression. 13. Fibromyalgia, back pain: On buprenorphine patch, which we will hold for now; on buspirone, which we will hold for now; on celecoxib, which we will hold for now; cyclobenzaprine, which we will hold for now. 14. Hyperlipidemia: On Vytorin, which we will hold for now. . 15. Deep venous thrombosis prophylaxis: Sequential compression devices for now. DISPOSITION: Closely monitor in the ICU. Level 1, full code as per my discussion with the patient. Job ID: [id number] MTDD
[2022-05-22] MEDS: PIPERACILLIN/TAZOBACTAM 3.375 GM in DEXTROSE 5% 100 ML IV SCH (11:51)
--- NOTE | 2022-05-22 12:04 | Psychiatric Consultation ---
Date of Consultation May 22, 2022 Impression / Recommendations Impression This is a 76 yo admitted medically following an intentional overdose suicide attempt. Diagnostically consistent with MDD in the context of recent stressors including worsening pain and recent medical issues and possible contribution from vascular dementia leading to impulsivity-based on current cognitive status difficult to determine what is delirium from overdose and what component may be from listed history of dementia. Acute risk of self-harm remains elevated and high given suicide attempt requiring medical admission, major depressive symptoms, impulsivity, hopelessness, ongoing regret at being alive, limited insight. Given elevated risk of harm to self they will likely meet criteria for inpatient psychiatric care for diagnostic clarification, safety/stabilization, development of additional coping skills, medication management and disposition/safety planning once medically stable. If they do not agree to voluntary treatment at that time they will meet criteria for 302 status based on severity of suicide attempt and ongoing modifiable risk factors, most likely for geriatric psychiatry given history of dementia. (1) Overdose of trazodone: (2) Depression: (3) Chronic pain: Plan -Continue 1-on-1 for risk of harm to self -Do not discharge or allow to leave AMA, would meet 302 criteria for warrant -Hold psych medications for now -Once medically cleared plan for psychiatric hospitalization (either 201 or 302 status). Psych History Identifying Data 76 yo woman who lives in [place] with her admitted medically following intentional ingestion. Psychiatry consulted for recommendations. Chief Complaint "I hurt all day". History of Present Illness Cheyanne admitted via EMS after her found her unresponsive. While en route to the hospital she told EMS reporters that she took trazodone in a suicide attempt. She also expressed to providers recent worsening of chronic pain as well as periods of constipation, diarrhea and nausea with decreased p.o. intake. Today in the ICU she is awake and fully oriented initially states the year is 1922 but quickly catches herself and corrects to 2021. Her speech is slurred and garbled at times particularly as she becomes more fatigued. She states that she had a fall on Sunday night and that on Sunday "I hurt all day". She expresses that due to this pain and medical issues she felt very depressed and no longer wanted to be alive. States that she was having suicidal ideation for about 2 days and that last night she took the trazodone as a suicide attempt. About how she feels to be alive she reports "not well". Further screening for specific depression symptoms and past psychiatric history limited by her fatigue. She declines to allow us to contact her stating that he is [place] ving his own health issues when asked if we can contact her children she seems to be confused and unable to allow us to do this. Allergies Allergy/AdvReac Type Severity Reaction Status Date / Time miconazole Allergy Intermediate SEVERE Verified 05/22/22 02:54 BURNING ITCHING morphine Allergy Intermediate ITCHING, Verified 05/22/22 02:54 ABD PAIN erythromycin base Allergy Unknown Unknown Verified 05/22/22 02:54 baclofen AdvReac Intermediate NAUSEA/VOMI Verified 05/22/22 02:54 TING clonazepam AdvReac Intermediate PSYCH Verified 05/22/22 02:54 COMPLICATIONS codeine AdvReac Intermediate DYSPEPSIA Verified 05/22/22 02:54 doxycycline AdvReac Intermediate GASTRITIS Verified 05/22/22 02:54 gabapentin AdvReac Intermediate FATIGUE Verified 05/22/22 02:54 Macrolide Antibiotics AdvReac Intermediate DYSPEPSIA Verified 05/22/22 02:54 (TOLERATED Z-PACK) primidone AdvReac Intermediate PSYCH Verified 05/22/22 02:54 COMPLICATIONS Home Medications Medication Instructions Recorded Confirmed Type albuterol sulfate 90 mcg/actuation 2 inh inhalation Q4H PRN SHORT OF 02/13/19 05/22/22 History breath activated powder inhaler BREATH bupropion HCl 100 mg tablet,12 hr 100 mg PO BID 02/13/19 05/22/22 History sustained-release (Wellbutrin SR) celecoxib 200 mg capsule (Celebrex) 200 mg PO QAM 02/13/19 05/22/22 History cholecalciferol (vitamin D3) 25 1,000 unit PO QAM 02/13/19 05/22/22 History mcg (1,000 unit) tablet (Vitamin D3) cyclobenzaprine 5 mg tablet 5 mg PO Q6H PRN Pain 02/13/19 05/22/22 History donepezil 10 mg tablet (Aricept) 10 mg PO HS 02/13/19 05/22/22 History esomeprazole magnesium 40 mg 40 mg PO QAM 02/13/19 05/22/22 History capsule,delayed release (Nexium) ezetimibe 10 mg-simvastatin 20 mg 1 tab PO HS 02/13/19 05/22/22 History tablet (Vytorin) fluticasone propionate 50 2 spray intranasal HS 02/13/19 05/22/22 History mcg/actuation nasal spray,suspension (Flonase Allergy Relief) folic acid 0.8 mg capsule 0.8 mg PO [facility] 02/13/19 05/22/22 History lamotrigine 150 mg tablet 150 mg PO 02/13/19 05/22/22 History (Lamictal) levothyroxine 100 mcg tablet 100 mcg PO [facility] 02/13/19 05/22/22 History memantine 14 mg capsule 14 mg PO [facility] 02/13/19 05/22/22 History sprinkle,extended release 24hr (Namenda XR) metformin 1,000 mg tablet 1,000 mg PO BID 02/13/19 05/22/22 History montelukast 10 mg tablet 10 mg PO 02/13/19 05/22/22 History (Singulair) evctzcnfrgnq-mvlrfbms-oelcms 1 tab PO [facility] 02/13/19 05/22/22 History tablet (Multivitamin 50 Plus tablet) vitamin E 268 mg (400 unit) capsule 400 unit PO 02/13/19 05/22/22 History trazodone 50 mg tablet 25 mg PO HS 11/13/19 05/22/22 History famotidine 40 mg tablet (Pepcid) 40 mg PO BID 04/12/20 05/22/22 History duloxetine 60 mg capsule,delayed 60 mg PO BID 05/19/21 05/22/22 History release (Cymbalta) furosemide 40 mg tablet 40 mg PO DAILY #90 tabs 11/22/21 05/22/22 Rx acetaminophen 650 mg 1,300 mg PO [facility] 01/19/22 05/22/22 History tablet,extended release aspirin 81 mg tablet,delayed 81 mg PO DAILY 01/19/22 05/22/22 History release (Yolis Low Dose Aspirin) buspirone 5 mg tablet 5 mg PO BID 01/19/22 05/22/22 History calcium carbonate 600 mg-vitamin 1 tab PO BID 01/19/22 05/22/22 History D3 20 mcg (800 unit) chewable tablet (Caltrate 600 plus D) cyanocobalamin (vitamin B-12) 1,000 mcg PO DAILY 01/19/22 05/22/22 History 1,000 mcg tablet (Vitamin B-12) fluticasone furoate 200 1 ea inhalation DAILY 01/19/22 05/22/22 History mcg-vilanterol 25 mcg/dose inhalation powder (Breo Ellipta) omega 9-cdo-hzr-fish oil 1,200 mg 1 cap PO BID 01/19/22 05/22/22 History (144 mg-216 mg) capsule (Fish Oil) lisinopril 40 mg tablet 40 mg PO DAILY #90 tabs 04/04/22 05/22/22 Rx L.acidoph-L.rhamn-B.bifidum-B.long 1 tab PO DAILY 05/22/22 05/22/22 History 12.9 mg (2 billion cell) tabletDR (Probiotic Acidophilus Violeta) albuterol sulfate 2.5 mg/3 mL 2.5 mg inhalation DIRECTED PRN 05/22/22 05/22/22 History (0.083 %) solution for nebulization Shortness Of Breath Or Wheezing benzonatate 100 mg capsule 100 mg PO TID PRN Cough 05/22/22 05/22/22 History buprenorphine 20 mcg/hour weekly 1 patch transdermal Q7D 05/22/22 05/22/22 History transdermal patch magnesium oxide 400 mg PO Q OTHER DAY 05/22/22 05/22/22 History ondansetron HCl 4 mg tablet 4 mg PO Q6H PRN NAUSEA/VOMITING 05/22/22 05/22/22 History pregabalin 50 mg capsule (Lyrica) 50 mg PO BID 05/22/22 05/22/22 History Personal History Living Arrangements: Home Marital Status: Number Of Children: 2 Beliefs That Will Affect Care: None Patient History Medical History Anemia Anxiety Asthma STABLE Cyclothymic disorder MOOD DISORDER Depression Diabetes mellitus, type 2 NIDDM Dry eye syndrome Dyspepsia CHRONIC FELT D/T MEDICATION INTERACTIONS (POLYPHARMACY) Fibromyalgia GERD (gastroesophageal reflux disease) OCCASIONAL History of blood transfusion REMOTE POST-OP Hyperlipidemia Hypertension Hyponatremia Hypothyroidism Kidney stones Migraine 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 Osteoarthritis Peripheral neuropathy B/L UE/LE Sleep apnea BIPAP Spinal stenosis Ventral hernia Surgical History Fusion of spine LUMBAR X2 H/O foot surgery RIGHT HAMMERTOE AND BUNION REPAIR H/O: hysterectomy + ANTERIOR/POSTERIOR REPAIR History of bladder surgery SUSPENSION History of cataract surgery RIGHT/LEFT History of section History of cholecystectomy History of colonoscopy History of esophagogastroduodenoscopy (EGD) History of shoulder surgery RIGHT SHOULDER History of surgery perianal fistula History of tonsillectomy Adenoidectomy History of tooth extraction History of total knee replacement RIGHT/LEFT History of vaginal hysterectomy Family History Mother Family history of diabetes mellitus COPD (chronic obstructive pulmonary disease) Diabetes Hypertension Brother Family history of diabetes mellitus Diabetes Renal failure Sister Family history of diabetes mellitus Malignant melanoma Uncle Family hx of colon cancer Colorectal cancer Paternal Aunt Breast cancer Maternal Ovarian cancer Paternal Social History Smoking Status: Never smoker Second Hand Exposure: No; Hx Alcohol Use: No Hx Substance Use: No Preferred Language: Polish Communication Ability: Effective Visual Impairment: Limited Hearing Ability: Normal Hog Trader Required: No Beliefs That Will Affect Care: None marital status: Current Living Situation: Spouse Feels Safe at Home: Yes Assistive Devices: Cane, Hearing Aid - Bilateral, Walker and Wheelchair Physical Exam Psychiatric: Orientation: alert, oriented to person, oriented to place and oriented to time Apperance: + disheveled Eye Contact: + fair eye contact Motor Behavior: no abnormal motor movements Speech: + abnormal rate/rhythm/volume of speech (Soft, slurred, garbled) Affect: + depressed affect Mood: + depressed mood Thought Process: + looseness of associations and + concrete thought process Thought Content: reality based without delusions Suicidal Thoughts: denies suicidal plan and denies suicidal intent; + reports suicidal thoughts (Attempt leading to admission and remains regretful about being alive) Homicidal Thoughts: denies homicidal thoughts Lu ucinations: no auditory hallucinations and no visual hallucinations Cognition: recent memory grossly intact and remote memory grossly intact; + attention not intact and + language not intact Estimated Intelligence: consistent with education level Insight: + impaired insight Judgement: + impaired judgement Vital Signs (Past 24 Hours): Last Vital Signs Temp 36.7 C 05/22/22 08:44 Pulse 98 H 05/22/22 10:31 Resp 19 05/22/22 10:31 BP 101/51 L 05/22/22 10:31 Pulse Ox 91 05/22/22 10:31 O2 Del Method 05/22/22 08:44 Review of Systems All systems reviewed & are unremarkable except as noted in HPI & below Results & Data (PSY) Medications Administered Famotidine (Famotidine 40 Mg Tablet) 40 mg PO BID SARAI Stop: 06/21/22 08:59 Last Admin: 05/22/22 10:55 Dose: 40 mg Documented By: TB Fluticasone/Vilanterol (Fluticasone/Vilanterol 200/25mcg 14 Puffs/Inhaler) 1 puffs INH DAILY SARAI Stop: 06/21/22 08:59 Last Admin: 05/22/22 10:54 Dose: 1 puffs Documented By: TB Folic Acid (Folic Acid 400 Mcg Tab) 800 mcg PO QAM SARAI Stop: 06/21/22 08:59 Last Admin: 05/22/22 10:55 Dose: 800 mcg Documented By: TB Sodium Chloride (Nss 1000ml) 1,000 mls @ 100 mls/hr IV .Q10H SARAI Stop: 06/21/22 07:59 Last Admin: 05/22/22 10:55 Dose: 100 mls/hr Documented By: TB Insulin Aspart (Insulin Aspart Per Unit) 0 units SC ACHS SARAI Stop: 06/21/22 08:24 Last Admin: 05/22/22 09:23 Dose: Not Given Documented By: LINO Co-signed By: [id number] Magnesium Oxide (Magnesium Oxide 400 Mg Tab) 400 mg PO Q2D@0900 SARAI Stop: 06/21/22 08:59 Last Admin: 05/22/22 10:55 Dose: 400 mg Documented By: TB Coding Level of Care Code 74099 Inpt Consult Level 3 Diagnoses Overdose of trazodone T43.211A Depression F32.9 Chronic pain G89.29
[2022-05-22] MEDS ORDERED: oxyCODONE HCL IR 5 MG TAB (IMMEDIATE RELEASE) PO PRN (12:18)
[2022-05-22 12:57] LABS: Base Excess ABG -1.6 mEq/L (-9-1.8); HCO3 ABG 22 mmol/L (19-24); Oxygen Saturation ABG 96.7 % (90-95); PCO2 ABG 31 mmHg (35-46); PO2 ABG 74 mmHg (80-95); pH ABG 7.45 (7.35-7.45)
[2022-05-22 13:03] LABS: Allen Test Pos (Pos)
[2022-05-22 13:16] LABS: BUN Creatinine Ratio 21.6 (10-20); Creatinine Clr Calc Pharmacy 27.4 ml/min; Est GFR (African American) 28.8 ml/min; Est GFR (Non-African American) 24.9 ml/min; Magnesium 2.4 mg/dl (1.7-2.4)
[2022-05-22 13:23] LABS: A calco-baum cmplx NotReported Not Detected (NotDetected); Bact fragilis Not Reported Not Detected (NotDetected); C auris Not Reported Not Detected (NotDetected); Calbicans Not Reported Not Detected (NotDetected); Candida glabrata Not Reported Not Detected (NotDetected); Candida krusei Not Reported Not Detected (NotDetected); Cneoformans/gatti Not Reported Not Detected (NotDetected); Cparapsilosis Not Reported Not Detected (NotDetected); Ctropicalis Not Reported Not Detected (NotDetected); E cloacae compx Not Reported Not Detected (NotDetected); Efaecalis Not Reported Not Detected (NotDetected); Efaecium Not Reported Not Detected (NotDetected); Enterobacterales Not Reported Not Detected (NotDetected); Escherichia coli Not Reported Not Detected (NotDetected); H influenzae Not Reported Not Detected (NotDetected); K aerogenes Not Reported Not Detected (NotDetected); Koxytoca Not Reported Not Detected (NotDetected); Kpneumoniae grp Not Reported Not Detected (NotDetected); Lmonocyt Not Reported Not Detected (NotDetected); N meningitidis Not Reported Not Detected (NotDetected); P aeruginosa Not Reported Not Detected (NotDetected); Proteus spp Not Reported Not Detected (NotDetected); Salmonella spp Not Reported Not Detected (NotDetected); Smarcescens Not Reported Not Detected (NotDetected); Staph lugdunensis Not Reported Not Detected (NotDetected); Staph spp. Not Reported Not Detected (NotDetected); Staphaureus Not Reported Not Detected (NotDetected); Staphepi Not Reported Not Detected (NotDetected); Stenmaltophilia Not Reported Not Detected (NotDetected); Strep agal(GrpB) Not Reported Not Detected (NotDetected); Strep pneum Not Reported Not Detected (NotDetected); Strep pyog (GrpA) Not Reported Not Detected (NotDetected); Strep spp Not Reported DETECTED (NotDetected); Streptococcus spp DETECTED (NotDetected)
[2022-05-22] MEDS ORDERED: SODIUM CHLORIDE 3 % 150 ML IV ONE (13:35)
--- NOTE | 2022-05-22 15:36 | Billing Data ---
Date of Service May 22, 2022 Coding Level of Care Code Critical Care 11 13- mins
[2022-05-22 16:15] LABS: BUN Creatinine Ratio 20.9 (10-20); Creatinine Clr Calc Pharmacy 27.1 ml/min; Est GFR (African American) 28.5 ml/min; Est GFR (Non-African American) 24.6 ml/min
[2022-05-22 19:08] LABS: A calco-baum cmplx NotReported Not Detected (NotDetected); Bact fragilis Not Reported Not Detected (NotDetected); C auris Not Reported Not Detected (NotDetected); CTX-M Resistant Gene Not Detected (NotDetected); Calbicans Not Reported Not Detected (NotDetected); Candida glabrata Not Reported Not Detected (NotDetected); Candida krusei Not Reported Not Detected (NotDetected); Cneoformans/gatti Not Reported Not Detected (NotDetected); Cparapsilosis Not Reported Not Detected (NotDetected); Ctropicalis Not Reported Not Detected (NotDetected); E cloacae compx Not Reported Not Detected (NotDetected); Efaecalis Not Reported Not Detected (NotDetected); Efaecium Not Reported Not Detected (NotDetected); Enterobacterales Not Reported Not Detected (NotDetected); Escherichia coli Not Reported Not Detected (NotDetected); H influenzae Not Reported Not Detected (NotDetected); IMP Resistant Gene Not Detected (NotDetected); K aerogenes Not Reported Not Detected (NotDetected); KPC Resistant Gene Not Detected (NotDetected); Koxytoca Not Reported Not Detected (NotDetected); Kpneumoniae grp Not Reported Not Detected (NotDetected); Lmonocyt Not Reported Not Detected (NotDetected); N meningitidis Not Reported Not Detected (NotDetected); NDM Resistant Gene Not Detected (NotDetected); P aeruginosa Not Reported DETECTED (NotDetected); Proteus spp Not Reported Not Detected (NotDetected); Salmonella spp Not Reported Not Detected (NotDetected); Smarcescens Not Reported Not Detected (NotDetected); Staph lugdunensis Not Reported Not Detected (NotDetected); Staph spp. Not Reported DETECTED (NotDetected); Staphaureus Not Reported DETECTED (NotDetected); Staphepi Not Reported Not Detected (NotDetected); Staphylococcus spp. DETECTED (NotDetected); Stenmaltophilia Not Reported Not Detected (NotDetected); Strep agal(GrpB) Not Reported Not Detected (NotDetected); Strep pneum Not Reported Not Detected (NotDetected); Strep pyog (GrpA) Not Reported Not Detected (NotDetected); Strep spp Not Reported DETECTED (NotDetected); VIM Resistant Gene Not Detected (NotDetected)
[2022-05-22 19:48] LABS: Pseudomonas aeruginosa DETECTED (NotDetected); Streptococcus spp DETECTED (NotDetected); mecAC+MREJ Resistant Gene MRSA DETECTED (NotDetected)
[2022-05-22] MEDS: MONTELUKAST SODIUM 10 MG TABLET PO SCH (20:26)
[2022-05-22] MEDS: buprenorphine HCL 2 MG SUBL SL SCH (20:26)
[2022-05-22] MEDS: DONEPEZIL HCL 10 MG TAB PO SCH (20:26)
[2022-05-22] MEDS: FLUTICASONE PROPIONATE NA SPR 16 GM BTL SCH (20:40)
[2022-05-22] MEDS ORDERED: buprenorphine HCL 2 MG SUBL SL SCH (21:00)
[2022-05-22 21:37] LABS: BUN Creatinine Ratio 21.7 (10-20); Calcium 7.7 mg/dl (8.5-10.1); Creatinine Clr Calc Pharmacy 28.9 ml/min; Est GFR (African American) 30.8 ml/min; Est GFR (Non-African American) 26.5 ml/min; Potassium 4.2 mmol/L (3.5-5.1)
[2022-05-22] MEDS ORDERED: DEXTROSE 50% 50 ML SYRINGE IV PRN (21:50)
[2022-05-22] MEDS ORDERED: GLUCOSE 40% GEL 15 GM TUBE PO PRN (21:50)
[2022-05-22] MEDS ORDERED: GLUCOSE 10 TAB/TUBE PO PRN (21:50)
[2022-05-22] MEDS ORDERED: GLUCAGON FOR INJ 1 MG VIAL SQ PRN (21:50)
[2022-05-22] MEDS ORDERED: CARBOHYDRATES FOR HYPOGLYCEMIA PO PRN (21:50)
[2022-05-22] MEDS ORDERED: DEXTROSE 50% 50 ML SYRINGE IV ONE (21:56)
[2022-05-23] MEDS: PIPERACILLIN/TAZOBACTAM 3.375 GM in DEXTROSE 5% 100 ML IV SCH (00:16)
[2022-05-23 01:38] LABS: BUN Creatinine Ratio 22.1 (10-20); Calcium 7.5 mg/dl (8.5-10.1); Creatinine Clr Calc Pharmacy 30.9 ml/min; Est GFR (African American) 33.4 ml/min; Est GFR (Non-African American) 28.8 ml/min; Magnesium 2.4 mg/dl (1.7-2.4); Potassium 3.8 mmol/L (3.5-5.1)
[2022-05-23 05:14] LABS: Hematocrit (blood only) 26.3 % (34.1-44.9); Hemoglobin 8.7 g/dl (12.0-16.0); Mean Corpuscular Hgb Conc 33.1 g/dL (32.0-36.0); Mean Corpuscular Volume 78.7 fL (80.0-100.0); Mean Platelet Volume 9.8 fL (9.4-12.3); Platelet Count 191 K/uL (130-400); RDW Coefficient of Variation 15.3 % (11.5-14.5); Red Blood Count 3.34 M/uL (3.93-5.22); White Blood Count 16.94 K/ul (4.8-10.8)
[2022-05-23 05:37] LABS: Albumin Level 2.3 gm/dl (3.4-5.0); Bilirubin Direct 0.1 mg/dl (0-0.2); Bilirubin,Total 0.5 mg/dl (0.2-1.0); Calcium 7.6 mg/dl (8.5-10.1); Creatinine Clr Calc Pharmacy 32.2 ml/min; Est GFR (African American) 35.3 ml/min; Est GFR (Non-African American) 30.5 ml/min; Magnesium 2.4 mg/dl (1.7-2.4); Phosphorus 2.6 mg/dl (2.5-4.9); Potassium 3.6 mmol/L (3.5-5.1); Total Protein 4.3 gm/dl (6.0-8.3)
--- NOTE | 2022-05-23 05:41 | Electrocardiogram Report ---
Test Reason : Blood Pressure : / mmHG Vent. Rate : 094 BPM Atrial Rate : 094 BPM P-R Int : 168 ms QRS Dur : 092 ms QT Int : 438 ms P-R-T Axes : 093 040 029 degrees QTc Int : 547 ms Poor data quality, interpretation may be adversely affected Sinus rhythm with frequent Premature ventricular complexes Prolonged QT When compared with ECG of 14-MAY-2022 17:24, Premature ventricular complexes are now Present Confirmed by Endy Cantu ([id number]) on 05/23/2022 5:41:37 AM Referred By: REFERRED SELF Confirmed By:Endy Cantu
--- NOTE | 2022-05-23 06:03 | Electrocardiogram Report ---
Test Reason : Blood Pressure : / mmHG Vent. Rate : 094 BPM Atrial Rate : 094 BPM P-R Int : 174 ms QRS Dur : 090 ms QT Int : 400 ms P-R-T Axes : 047 016 026 degrees QTc Int : 500 ms Normal sinus rhythm Low voltage QRS Prolonged QT Abnormal ECG When compared with ECG of 22-MAY-2022 02:46, Premature ventricular complexes are no longer Present Confirmed by Endy Cantu ([id number]) on 05/23/2022 6:02:50 AM Referred By: REFERRED SELF Confirmed By:Endy Cantu
[2022-05-23 06:13] LABS: Basophils # (auto) 0.04 K/uL (0-0.2); Basophils % (auto) 0.2 %; Echinocytes 1+; Eosinophils # (auto) 0.07 K/uL (0-0.50); Eosinophils % (auto) 0.4 %; Immature Granulocytes # (auto) 0.52 K/uL (0.00-0.02); Immature Granulocytes % (auto) 3.1 %; Lymphocytes # (auto) 0.58 K/uL (1.2-3.4); Lymphocytes % (auto) 3.4 %; Monocytes # (auto) 0.89 K/uL (0.24-0.82); Monocytes % (auto) 5.3 %; Neutrophils # (auto) 14.84 K/uL (1.4-6.5); Neutrophils % (auto) 87.6 %
[2022-05-23 07:27] LABS: Estimated Average Glucose 151 mg/dl; Hemoglobin A1C 6.9 % (4.5-5.6)
[2022-05-23] MEDS: SODIUM CHLORIDE 0.9% 1000ML 1,000 ML IV SCH ×2 (07:38→15:04)
--- NOTE | 2022-05-23 07:55 | Critical Care Progress Note ---
Date of Service May 23, 2022 Assessment & Plan (1) Overdose of trazodone: (2) Hypotension: (3) Anxiety: (4) Asthma: (5) Hypothyroidism: (6) Diabetes mellitus, type II: (7) Depression: (8) Leukocytosis: Plan Cheyanne is a 76 year old female admitted to the ICU for monitoring after Trazodone overdose. Neuro Trazodone overdose/AMS: -Patient endorses intake of surplus Trazodone (possibly 25 pills), also has home oxycodone for pain, history of vascular dementia. -Glucose WNL, hyponatremic to 121 however electrolytes not grossly abnormal. -Most likely lethargic secondary to Trazodone overdose - patient endorses suicidal intent. -Serial EKG's without acute changes, NSR, QTc prolonged - latest at 502. -Hold home pain medications such as trazodone, oxycodone, pregabalin, cyclobenzaprine. -Patient on 1:1 observation, psychiatry consulted - meets criteria for inpatient psychiatric care once medically stable. Opioid dependence: -Has oxycodone at home for back pain, last filled 04/25 30 day supply (90 tablets). Was weaning off oxycodone. -Removed Buprenorphine patch, will substitute with sublingual buprenorphine. -Buprenorphine 2mg BID. Vascular Dementia: -Continue home donepezil and memantine. Anxiety/Depression: -Intentional overdose of Trazodone, possibly 25 pills of Trazodone. -Admitted to hospital for suicidal intentional overdose of Trazodone. -Per psych, hold psych meds for now. Cardiac Hypotension: -A few hypotensive episodes in the ED - improved with fluids. -Given 1L NS on way over, 2L LR bolus in ICU. On NSS 100ml/hr. -Maintain MAP >65. Dyslipidemia: -Can hold home omega 3 fish oil pills for now. Respiratory No history of respiratory disease. Patient saturating well on RA. GI Can trial on clear liquids, advance as tolerated. Constipation/Diarrhea: -Constipation for past week followed by diarrhea following magnesium citrate + miralax for a few days. -No overt stool burden seen on CT A/P. Continue to monitor. Renal/Electrolytes VJ: -Patient with diarrhea and decreased PO intake at home. -Creatinine 2.42 in ED, baseline 0.8. -U/A w/ epithelial cells, casts, 1+ protein, 3+ blood. -FENa 0.3% - most likely pre-renal etiology. -Nephrology consulted. -Expect to improve as BP improving, continue to hold Lisinopril. -Repleted fluids as above. Keep on maintenance fluid 100ml/hr. Hyponatremia: -Na 121 in ED. Past history of chronic mild to moderate hyponatremia. -Serum Osmol 267, Urine osmol 322, random urine sodium 15, FENa 0.3%. -Hypotonic hyponatremia w/ low urine sodium indicates most likely extrarenal loss from diarrhea. -Nephrology consulted -Given 150ml bolus saline 05/22. Continue NSS 100ml/hr, q12hr Na checks. -Repleted 1L NS in ED, 2L LR bolus, continue on maintenance fluid at 100ml/hr. Lactic Acidosis: -Lactate 7.7 on arrival, down to 1.6. Resolved. -CPK 1230 may have rhabdomyolysis. -No acute respiratory distress, saturating well, glucose within normal limits. -may be from soft tissue infection vs dehydration. -Repleted 2L LR. Continue with NSS fluid maintenance at 100ml/hr. -Repeat CPK. Hypocalcemia/Hypomagnesemia: Replete as needed. Per Poison control should keep potassium 4.0 or above. Ordered 40meq potassium replacement. Strict I&O's. Endo T2DM: -A1c 6.9 - highest over past few years. -Hold home diabetes medications, SSI. -ICU hyperglycemia protocol Hypothyroidism: -Continue home levothyroxine. Heme Anemia: -Hgb 9.8, in the past hemoglobin between 8-13 -Ferritin 11/2021 5, low - most likely iron deficiency anemia. -No colonoscopy found in chart. May benefit from outpatient colonoscopy for further workup. ID Leukocytosis: -WBC 34 on admission to the hospital. Febrile at times to 38 degrees. -Blood cultures with growth of gram + cocci in chains, gram + cocci in clusters, gram - bacilli in 1 bottle, second bottle gram + cocci in clusters. -Biofire PCR w/ Staph, MRSA, Strep, Pseudomonas - May truly be MRSA due to gram + cocci clusters growing in both bottles, rest may be contaminant. -Lactic acid 7.7 -> 7.2 -> 5.6 -> 1.6. Procalcitonin 14.98 however in setting of VJ. -U/A w/ epithelial cells and casts, no nitrite, LE, bacteria. -CT w/ evidence of soft tissue stranding in buttocks, no evidence of hydronephrosis or diverticulitis. -May be secondary to darcy-anal soft tissue infection. -Started empirically on Zosyn in ED, dose adjusted for potential Pseudomonas infection. Added daptomycin, will await await culture results. -Repeat cultures tomorrow. Repeat procalcitonin pending. -Wound care consulted. Lines/IV Access Peripheral IVs. DVT Prophylaxis SCDs, Heparin SQ 5000U q12h. Dispo: ICU. Admission and Anticipated Discharge Date Admission Date: May 22, 2022 Supervising Physician Co-Signing Physician Notes Patient seen and examined. EMR reviewed. Imaging independently reviewed. Discussed with bedside nurse and on multidisciplinary rounds as well as with family practice resident. Agree with assessment plan as noted above. Patient's sepsis appears improving. Her lactate is clearing. Blood cultures show this concordant results and suspect 1 of these may be a contaminant. Will recheck procalcitonin and order surveillance cultures in 24hours. If persistently bacteremic, may need echocardiogram as well as evaluation for potential other sources of seeding. Continue Zosyn at antipseudomonal doses until final second set of blood cultures are finalized. If no Pseudomonas in those cultures, Zosyn can likely be discontinued. Continue to monitor the patient's area of induration on her buttock. Demonstrates no fluctuance and capillary refill is actually better today. Recheck CPK. Follow kidney function and defer additional BMP and fluids to nephrology. The patient appears slightly oversedated with regards to her pain medications. Discussed with pharmacy. We will decrease her buprenorphine to 2 mg and discontinue the OxyContin. Hopefully her sensorium improves. EKG remains unremarkable and can continue supportive care for presumed trazodone overdose. If the patient's mental status improves, she can likely transfer to the floor later today. Behavioral health is monitoring and the patient continues to have a sitter at bedside. Subjective Patient seen at the bedside this morning, oriented to name but not place thinking she was in [place]. She states the thing that is bothering her the most today is her lower back pain above her sacrum. Denies chest pain, shortness of breath, fevers, chills. No overnight events. Review of Systems Constitutional: as per Subjective / HPI Physical Exam Constitutional: WD/WN, vitals as above Eyes: Pupils pinpoint bilaterally. Respiratory: normal respiratory effort, lungs clear to auscultation Cardiovascular: II/ holosystolic murmur most prominent at the L upper sternal border. RRR. Gastrointestinal (Abdomen): normal bowel sounds, soft, nontender, no hepatosplenomegaly Skin: Erythematous, edematous, blanching, indurated area surrounding anus most prominent at the right buttocks cheek but also present at the left buttocks cheek spreading down towards the perineum. Results & Data Results & Data ([facility]) Vital Signs (Past 12 Hours) Vital Signs Temp Pulse Resp BP Pulse Ox O2 Del Method 05/23/22 05:30 37.4 C 86 21 91 05/23/22 05:30 103/49 L 05/23/22 05:00 37.5 C 88 20 91 05/23/22 05:00 108/58 L 05/23/22 04:30 37.5 C 91 H 23 91 05/23/22 04:30 108/58 L 05/23/22 04:00 37.7 C H 100 H 23 94 05/23/22 04:00 112/56 L 05/23/22 03:30 37.7 C H 94 H 25 H 93 05/23/22 03:00 37.7 C H 94 H 25 H 91 05/23/22 03:00 109/38 L 05/23/22 02:30 37.7 C H 93 H 23 93 05/23/22 02:30 93/55 L 05/23/22 02:00 37.7 C H 94 H 25 H 92 05/23/22 02:00 98/52 L 05/23/22 01:30 110/56 L 05/23/22 01:30 37.7 C H 95 H 19 92 05/23/22 01:00 37.8 C H 93 H 23 93 05/23/22 01:00 106/46 L 05/23/22 00:30 37.8 C H 93 H 24 91 05/23/22 00:30 96/45 L 05/23/22 00:15 37.8 C H 91 H 22 92 05/23/22 00:00 37.9 C H 92 H 22 94 05/23/22 00:00 103/47 L 05/22/22 23:45 37.9 C H 87 22 92 05/22/22 23:30 37.9 C H 88 23 92 05/22/22 23:30 89/46 L 05/22/22 23:38 90 05/22/22 23:15 37.9 C H 91 H 23 92 05/22/22 23:01 81/53 L 05/22/22 23:01 38.0 C H 94 H 19 91 05/22/22 23:00 38.0 C H 94 H 23 93 05/22/22 22:45 38.0 C H 94 H 23 91 05/22/22 20:00 Room Air 05/22/22 22:30 38.0 C H 92 H 27 H 92 05/22/22 22:30 93/54 L 05/22/22 22:15 37.9 C H 95 H 23 93 05/22/22 22:06 37.9 C H 93 H 23 93 05/22/22 22:06 100/47 L 05/22/22 22:00 37.9 C H 94 H 27 H 91 05/22/22 21:45 37.9 C H 92 H 26 H 95 05/22/22 21:30 37.9 C H 91 H 19 93 05/22/22 21:15 37.9 C H 94 H 26 H 93 05/22/22 21:06 121/48 L 05/22/22 21:06 37.9 C H 94 H 25 H 94 05/22/22 21:01 37.9 C H 96 H 18 94 05/22/22 21:00 37.9 C H 94 H 30 H 93 05/22/22 20:45 37.9 C H 95 H 27 H 94 05/22/22 20:30 37.9 C H 95 H 24 95 Room Air 05/22/22 20:15 38.1 C H 98 H 23 95 05/22/22 20:00 96 H 17 95 05/22/22 20:00 146/73 H 05/22/22 19:45 92 H 92 Resident Activity Tracking Resident Involvement: Resident Care Provided Care Provided: Adult [facility] Medicine
[2022-05-23] MEDS: buprenorphine HCL 2 MG SUBL SL SCH (08:11)
[2022-05-23] MEDS: POTASSIUM CHLORIDE / WTR 10 MEQ/100 ML PLCT IV SCH ×4 (08:12→11:03)
[2022-05-23] MEDS: LEVOTHYROXINE SODIUM 100 MCG TABLET PO SCH (08:16)
[2022-05-23] MEDS: PANTOprazole 40 MG TAB PO SCH (08:16)
[2022-05-23] MEDS: FLUTICASONE/VILANTEROL 200/25MCG 14 PUFFS/INHALER INH SCH (08:17)
[2022-05-23] MEDS: MEMANTINE HCL 10 MG TAB PO SCH ×2 (08:17→21:24)
[2022-05-23] MEDS: FAMOTIDINE 40 MG TABLET PO SCH ×2 (08:17→21:24)
[2022-05-23] MEDS: FOLIC ACID 400 MCG TAB PO SCH (08:17)
[2022-05-23] MEDS ORDERED: PIPERACILLIN/TAZOBACTAM 3.375 GM in DEXTROSE 5% 100 ML IV SCH (08:30)
[2022-05-23] MEDS: INSULIN ASPART PER UNIT SC SCH ×4 (08:30→21:25)
--- NOTE | 2022-05-23 09:56 | Nephrology Progress Note ---
Date of Service May 23, 2022 Assessment & Plan (1) Acute kidney injury: (2) Acute hyponatremia: (3) Metabolic acidosis with increased anion gap and accumulation of organic acids: (4) Overdose of trazodone: (5) Leukocytosis: (6) Lactic acidosis: (7) Hypomagnesemia: Plan VJ and multiple electrolyte abnormality including hyponatremia, gap metabolic acidosis and lactic acidosis with no prior history of CKD. Presented with history of recent diarrhea, trazodone over does. urinalysis with microscopic hematuria but no proteinuria. Renal imaging showed bilateral otherwise normal size kidney. VJ most likely hemodynamically mediated with persistent hypotension, volume depletion. gap metabolic acidosis with VJ and elevated lactate with hypotension. Hyponatremia most likely related to volume depletion as well, Urine Na was low. Renal functional Continues to improve, creatinine down to 1.6, bicarb improved to 23 and anion gap closed. . Blood pressure improved with systolic blood pressure staying in 120s to 130s. Sodium improved to 129. leukocytosis improving. --continue IV NS while po intake remains poor, expect renal function to continue to improve as BP improving, continue to hold Lisinopril -- Monitor S Na q 12h Will follow Admission and Anticipated Discharge Date Admission Date: May 22, 2022 Lianna Edward was seen and evaluated this morning. She continues to be lethargic and confused but wake up easily. Na improved to 128, Cr 1.6, acidosis corrected. BP acceptable. Review of Systems Review of Systems: Detail ROS was not possible due to reduced consciousness. Physical Exam Constitutional: WD/WN, vitals as above + ill appearing and + altered mental status; no acute distress Eyes: + anicteric sclerae Neck: normal visual inspection Respiratory: no respiratory distress and no cough Auscultation: lungs clear to auscultation bilaterally Cardiovascular: Rate/Rhythm: regular rate and regular rhythm Heart Sounds: normal S1 and normal S2 Extremities: no edema Gastrointestinal (Abdomen): Inspection/Auscultation: abdomen normal to inspection and normal bowel sounds Percussion/Palpation: abdomen soft; abdomen nontender Musculoskeletal: Extremities: extremities normal to inspection Skin: no rashes Neurologic: no focal motor deficits Speech / Cognition: + abnormal cognition decreased responsiveness. Psychiatric: Could not be assessed. Results & Data ([facility]) Vital Signs (Past 12 Hours) Vital Signs Temp Pulse Resp BP Pulse Ox 05/23/22 05:30 37.4 C 86 21 91 05/23/22 05:30 103/49 L 05/23/22 05:00 37.5 C 88 20 91 05/23/22 05:00 108/58 L 05/23/22 04:30 37.5 C 91 H 23 91 05/23/22 04:30 108/58 L 05/23/22 04:00 37.7 C H 100 H 23 94 05/23/22 04:00 112/56 L 05/23/22 03:30 37.7 C H 94 H 25 H 93 05/23/22 03:00 37.7 C H 94 H 25 H 91 05/23/22 03:00 109/38 L 05/23/22 02:30 37.7 C H 93 H 23 93 05/23/22 02:30 93/55 L 05/23/22 02:00 37.7 C H 94 H 25 H 92 05/23/22 02:00 98/52 L 05/23/22 01:30 110/56 L 05/23/22 01:30 37.7 C H 95 H 19 92 05/23/22 01:00 37.8 C H 93 H 23 93 05/23/22 01:00 106/46 L 05/23/22 00:30 37.8 C H 93 H 24 91 05/23/22 00:30 96/45 L 05/23/22 00:15 37.8 C H 91 H 22 92 05/23/22 00:00 37.9 C H 92 H 22 94 05/23/22 00:00 103/47 L 05/22/22 23:45 37.9 C H 87 22 92 05/22/22 23:30 37.9 C H 88 23 92 05/22/22 23:30 89/46 L 05/22/22 23:38 90 05/22/22 23:15 37.9 C H 91 H 23 92 05/22/22 23:01 81/53 L 05/22/22 23:01 38.0 C H 94 H 19 91 05/22/22 23:00 38.0 C H 94 H 23 93 05/22/22 22:45 38.0 C H 94 H 23 91 05/22/22 22:30 38.0 C H 92 H 27 H 92 05/22/22 22:30 93/54 L 05/22/22 22:15 37.9 C H 95 H 23 93 05/22/22 22:06 37.9 C H 93 H 23 93 05/22/22 22:06 100/47 L 05/22/22 22:00 37.9 C H 94 H 27 H 91 PG Care Time/CCT Total # of Minutes Spent Total Time Spent with Patient: Total time spent is greater than 50% in coordination of care (as documented) at patient's floor/unit and/or counseling patient: Coding Level of Care Code 20591 Subseq Hosp Care Lvl 3 Diagnoses Acute kidney injury N17.9 Acute hyponatremia E87.1 Metabolic acidosis with increased anion gap and accumulation of organic acids E87.2 Overdose of trazodone T43.211A Leukocytosis D72.829 Lactic acidosis E87.2 Hypomagnesemia E83.42
[2022-05-23] MEDS: PIPERACILLIN/TAZOBACTAM 4.5 GM in DEXTROSE 5% 100 ML IV SCH ×2 (11:02→18:48)
[2022-05-23] MEDS: DAPTOmycin 550 MG in SYRINGE 0 ML IV SCH (11:03)
--- NOTE | 2022-05-23 11:34 | Billing Data ---
Date of Service May 23, 2022 Coding Level of Care Code 02894 Subseq Hosp Care Lvl 3
--- NOTE | 2022-05-23 12:43 | Hospitalist Progress Note ---
Date of Service May 23, 2022 Assessment & Plan (1) Overdose of trazodone: Plan: - patient expressed intentional overdose of trazodone - found to be somnolent but arousable - found to have WBC 34, lactic acidosis 7, Cr 2.35 (baseline 0.81), bicarb 19 - given IVF and abx in ED - transfer to ICU for close monitoring - trend lactic acid, WBC - poison control contacted - renal consulted - all parameters are improving - possible downgrade to floors later today per IC U - will continue to monitor (2) Sepsis: Plan: - likely related to acute overdose - cannot rule out infection - blood cultures, urine cultures sent - UA negative for infection - continue broad spectrum abx per ICU pending culture results - trend WBC - improving (3) Hyponatremia: Plan: - likely due to decrease po intake and diarrhea - hypochloremic as well points toward above - IVF in ED - continue in ICU - renal following - trend Na - improving (4) Lactic acidosis: Plan: - likely related to acute overdose - IVF and antibiotcs as above - trending down - continue to trend to clearance - resolved (5) Leukocytosis: Plan: - likely in the setting of acute overdose vs sepsis - management as above - improving (6) Chronic pain: Plan: - holding pain medications given overdose - restart and titrate when able (7) Diabetes mellitus, type II: Plan: - takes metformin at home - hold while inpatient - monitor FSG AC+HS - ICU protocol while in ICU - diabetic diet when tolerating PO (8) Depression: Plan: - Suicidal ideation leading to acute overdose - medical management as above - psych consulted - observation 1:1 for pateint safety - reports not as much desire to hurt herself this morning but will continue to closely monitor - eligible for inpatient psych - either 201 or 302 pending further psych evaluation (9) Hypothyroidism: Plan: - continue levothyroxine (10) Anemia: Plan: - hgb 9.8 on presentation - baseline around 12 - no signs of active bleeding - will monitor for now - transfuse for hgb <7.0 Plan DVT ppx: per ICU Full Code Dispo: ICU Duncan Rosales MD [facility] Medicine Admission and Anticipated Discharge Date Admission Date: May 22, 2022 Lianna Edward is a 76 year old woman w/ PmHx T2DM, HLD, asthma, hypothyroidism, vascular dementia, sleep apnea, chronic back pain requiring opioid pain control, anxiety/depression coming in to the hospital for overdose of Trazodone. Found to be suicide attempt. Medically found to have VJ, metabolic AG acidosis, hyponatremia. She was admitted to the ICU for close monitoring, renal was consulted and has been following. She continues to improve. Psychiatry was consulted and patient is on 1:1 observation, determined not to have capacity and cannot leave AMA. Psych will follow and patient is eligible for inpatient psych, either 201 or 302 pending further psych evaluation. Patient complains of low back pain by her sacrum. Otherwise denies chest pain, shortness of breath, n/v/d, abdominal pain. Review of Systems Review of Systems: All systems reviewed & are unremarkable except as noted in Subjective Physical Exam Physical Exam: Constitutional:WD/WN, vitals as above Patient slightly more awake, answers questions but slowly. Respiratory:normal respiratory effort, lungs clear to auscultation Cardiovascular:II/ holosystolic murmur most prominent at the left upper sternal border, RRR. Gastrointestinal (Abdomen):normal bowel sounds, soft, nontender, no hepatosplenomegaly Extremities: no edema, bruisin Skin:Mildly erythematous, edematous, indurated area surrounding anus w/ blanching and poor capillary refill. Neuro: AAOx2 not place, fatigued. Moving all extremities Results & Data Results & Data ([facility]) Vital Signs (Past 12 Hours) Vital Signs Temp Pulse Resp BP Pulse Ox O2 Del Method 05/23/22 09:15 Room Air 05/23/22 08:00 86 05/23/22 05:30 37.4 C 86 21 91 05/23/22 05:30 103/49 L 05/23/22 05:00 37.5 C 88 20 91 05/23/22 05:00 108/58 L 05/23/22 04:30 37.5 C 91 H 23 91 05/23/22 04:30 108/58 L 05/23/22 04:00 37.7 C H 100 H 23 94 05/23/22 04:00 112/56 L 05/23/22 03:30 37.7 C H 94 H 25 H 93 05/23/22 03:00 37.7 C H 94 H 25 H 91 05/23/22 03:00 109/38 L 05/23/22 02:30 37.7 C H 93 H 23 93 05/23/22 02:30 93/55 L 05/23/22 02:00 37.7 C H 94 H 25 H 92 05/23/22 02:00 98/52 L 05/23/22 01:30 110/56 L 05/23/22 01:30 37.7 C H 95 H 19 92 05/23/22 01:00 37.8 C H 93 H 23 93 05/23/22 01:00 106/46 L Laboratory Results Short CBC 05/23/22 Range/Units 05:04 WBC 16.94 H (4.8-10.8) K/ul Hgb 8.7 L (12.0-16.0) g/dl Hct 26.3 L (34.1-44.9) % Plt Count 191 (130-400) K/uL BMP 05/22/22 05/22/22 05/22/22 12:36 15:41 21:05 Sodium 121 L 123 L 125 L Potassium 4.0 4.0 4.2 Chloride 91 L 91 L 94 L Carbon Dioxide 22 24 23 BUN 42 H 41 H 40 H Creatinine 1.94 H D 1.96 H 1.84 H Glucose 117 H 98 80 Calcium 8.0 L 8.0 L 7.7 L 05/23/22 05/23/22 00:38 05:04 Sodium 127 L 129 L Potassium 3.8 3.6 Chloride 96 L 97 L Carbon Dioxide 23 24 BUN 38 H 36 H Creatinine 1.72 H 1.64 H Glucose 97 96 Calcium 7.5 L 7.6 L Cardiac Enzymes 05/23/22 Range/Units 05:04 Total Creatine Kinase 843 H (26-192) U/L Liver Function 05/23/22 Range/Units 05:04 Total Bilirubin 0.5 (0.2-1.0) mg/dl Direct Bilirubin 0.1 (0-0.2) mg/dl AST 46 H (13-39) U/L ALT 36 (7-52) U/L Alkaline Phosphatase 67 (34-104) U/L Albumin 2.3 L (3.4-5.0) gm/dl Medications Administered Current Inpatient Medications Albuterol (Albuterol Hfa 8 Gm Inhaler) 2 puffs INH Q4H PRN PRN Reason: SHORT OF BREATH Stop: 06/21/22 08:46 Albuterol (Albuterol 0.083% Nebu Soln 3 Ml Vial) 2.5 mg INH ONCE PRN; Protocol PRN Reason: SOB/WHEEZING Stop: 06/21/22 08:24 Buprenorphine HCl (Buprenorphine Hcl 2 Mg Subl) 2 mg SL BID SARAI Stop: 06/22/22 20:59 Dextrose (Dextrose 50% 50 Ml Syringe) 25 - 50 ml IV UD PRN; Protocol PRN Reason: Hypoglycemia Protocol Stop: 06/21/22 21:49 Last Admin: 05/22/22 21:58 Dose: 25 ml Donepezil HCl (Donepezil Hcl 10 Mg Tab) 10 mg PO HS [facility] Stop: 06/21/22 20:59 Last Admin: 05/22/22 20:26 Dose: Not Given Famotidine (Famotidine 40 Mg Tablet) 40 mg PO BID SARAI Stop: 06/21/22 08:59 Last Admin: 05/23/22 08:17 Dose: 40 mg Fluticasone Propionate (Fluticasone Propionate Na Spr 16 Gm Btl) 2 sprays NA HS SARAI Stop: 06/21/22 20:59 Last Admin: 05/22/22 20:40 Dose: 2 sprays Fluticasone/Vilanterol (Fluticasone/Vilanterol 200/25mcg 14 Puffs/Inhaler) 1 puffs INH DAILY SARAI Stop: 06/21/22 08:59 Last Admin: 05/23/22 08:17 Dose: 1 puffs Folic Acid (Folic Acid 400 Mcg Tab) 800 mcg PO QAM SARAI Stop: 06/21/22 08:59 Last Admin: 05/23/22 08:17 Dose: 800 mcg Glucagon (Glucagon For Inj 1 Mg Vial) 1 mg SQ UD PRN; Protocol PRN Reason: Hypoglycemia Protocol Stop: 06/21/22 21:49 Glucose (Glucose 40% Gel 15 Gm Tube) 15 - 30 gm PO UD PRN; Protocol PRN Reason: Hypoglycemia Protocol Stop: 06/21/22 21:49 Glucose (Glucose 10 Tab/Tube) 4 - 8 tab PO UD PRN; Protocol PRN Reason: Hypoglycemia Treatment Stop: 06/21/22 21:49 Heparin Sodium (Porcine) (Heparin Sod 5,000 Unit/0.5 Ml Vial) 5,000 units SQ Q12 [facility] Stop: 06/22/22 20:59 Sodium Chloride (Nss 1000ml) 1,000 mls @ 100 mls/hr IV .Q10H [facility] Stop: 06/21/22 07:59 Last Admin: 05/23/22 07:38 Dose: 100 mls/hr Daptomycin 550 mg/ Syringe 11 mls @ 5.5 mls/min IV Q24H [facility]; Protocol Stop: 06/06/22 08:29 Last Admin: 05/23/22 11:03 Dose: 5.5 mls/min Piperacillin Sod/Tazobactam (Sod 4.5 gm/ Dextrose) 120 mls @ 30 mls/hr IV Q8H [facility]; Protocol Stop: 06/06/22 09:59 Last Admin: 05/23/22 11:02 Dose: 30 mls/hr Insulin Aspart (Insulin Aspart Per Unit) 0 units SC ACHS [facility] Stop: 06/21/22 08:24 Last Admin: 05/23/22 08:30 Dose: Not Given Levothyroxine Sodium (Levothyroxine Sodium 100 Mcg Tablet) 100 mcg PO DAILYBB [facility] Stop: 06/21/22 08:59 Last Admin: 05/23/22 08:16 Dose: 100 mcg Magnesium Oxide (Magnesium Oxide 400 Mg Tab) 400 mg PO Q2D@0900 [facility] Stop: 06/21/22 08:59 Last Admin: 05/22/22 10:55 Dose: 400 mg Memantine (Memantine Hcl 10 Mg Tab) 10 mg PO BID [facility] Stop: 06/22/22 08:59 Last Admin: 05/23/22 08:17 Dose: 10 mg Miscellaneous (Icu Protocol For Hyperglycemia) 1 each N/A PRN PRN; Protocol PRN Reason: Hyperglycemia Protocol Stop: 05/24/22 08:24 Miscellaneous (Carbohydrates For Hypoglycemia ) 15 - 30 gm PO UD PRN PRN Reason: Hypoglycemia Protocol Stop: 06/21/22 21:49 Montelukast Sodium (Montelukast Sodium 10 Mg Tablet) 10 mg PO HS [facility] Stop: 06/21/22 20:59 Last Admin: 05/22/22 20:26 Dose: Not Given Pantoprazole Sodium (Pantoprazole 40 Mg Tab) 40 mg PO QAM [facility] Stop: 06/22/22 08:59 Last Admin: 05/23/22 08:16 Dose: 40 mg
--- NOTE | 2022-05-23 14:28 | Communication Note ---
Date of Service: May 23, 2022 Psychiatric liason attempted to meet with patient and she remains very sedated and unable to tolerate extensive interview at this time. Will plan to see her tomorrow morning to gather further recent history of symptoms and events leading to overdose. A/P: Remains high risk for self-harm given suicide attempt. -Continue 1-on-1 for risk of harm to self -Do not discharge or allow to leave AMA, would meet 302 criteria for warrant -Hold psych medications for now, ok to continue with aricept and namenda -Once medically cleared will likely plan for geriatric psychiatric hospitalization (either 201 or 302 status).
[2022-05-23 17:38] LABS: BUN Creatinine Ratio 22.2 (10-20); Calcium 7.8 mg/dl (8.5-10.1); Creatinine Clr Calc Pharmacy 39.2 ml/min; Est GFR (African American) 44.7 ml/min; Est GFR (Non-African American) 38.6 ml/min; Potassium 3.9 mmol/L (3.5-5.1)
[2022-05-23] MEDS ORDERED: buprenorphine HCL 2 MG SUBL SL SCH (21:00)
[2022-05-23] MEDS: FLUTICASONE PROPIONATE NA SPR 16 GM BTL SCH (21:24)
[2022-05-23] MEDS: HEPARIN SOD 5,000 UNIT/0.5 ML VIAL SQ SCH (21:24)
[2022-05-23] MEDS: MONTELUKAST SODIUM 10 MG TABLET PO SCH (21:24)
[2022-05-23] MEDS: DONEPEZIL HCL 10 MG TAB PO SCH (21:24)
[2022-05-24] MEDS: PIPERACILLIN/TAZOBACTAM 4.5 GM in DEXTROSE 5% 100 ML IV SCH ×3 (01:35→18:15)
[2022-05-24] MEDS: SODIUM CHLORIDE 0.9% 1000ML 1,000 ML IV SCH ×2 (04:50→18:15)
--- NOTE | 2022-05-24 05:47 | Electrocardiogram Report ---
Test Reason : Blood Pressure : / mmHG Vent. Rate : 099 BPM Atrial Rate : 099 BPM P-R Int : 162 ms QRS Dur : 094 ms QT Int : 362 ms P-R-T Axes : 048 043 057 degrees QTc Int : 464 ms Normal sinus rhythm Low voltage QRS Borderline ECG When compared with ECG of 22-MAY-2022 12:39, No significant change was found Confirmed by Endy Cantu ([id number]) on 05/24/2022 5:47:03 AM Referred By: REFERRED SELF Confirmed By:Endy Cantu
--- NOTE | 2022-05-24 05:55 | Electrocardiogram Report ---
Test Reason : Blood Pressure : / mmHG Vent. Rate : 090 BPM Atrial Rate : 090 BPM P-R Int : 176 ms QRS Dur : 092 ms QT Int : 408 ms P-R-T Axes : 046 051 061 degrees QTc Int : 499 ms Normal sinus rhythm Prolonged QT Abnormal ECG When compared with ECG of 22-MAY-2022 20:12, QT has lengthened Confirmed by Endy Cantu ([id number]) on 05/24/2022 5:54:40 AM Referred By: REFERRED SELF Confirmed By:Endy Cantu
--- NOTE | 2022-05-24 05:56 | Electrocardiogram Report ---
Test Reason : Blood Pressure : / mmHG Vent. Rate : 094 BPM Atrial Rate : 094 BPM P-R Int : 170 ms QRS Dur : 098 ms QT Int : 402 ms P-R-T Axes : 044 044 056 degrees QTc Int : 502 ms Normal sinus rhythm Low voltage QRS Prolonged QT Abnormal ECG When compared with ECG of 22-MAY-2022 23:56, No significant change was found Confirmed by Endy Cantu ([id number]) on 05/24/2022 5:56:39 AM Referred By: REFERRED SELF Confirmed By:Endy Cantu
[2022-05-24 06:03] LABS: Hematocrit (blood only) 26.5 % (34.1-44.9); Hemoglobin 8.6 g/dl (12.0-16.0); Mean Corpuscular Hemoglobin 26.1 pg (25.0-34.0); Mean Corpuscular Hgb Conc 32.5 g/dL (32.0-36.0); Mean Corpuscular Volume 80.5 fL (80.0-100.0); Mean Platelet Volume 9.4 fL (9.4-12.3); Platelet Count 176 K/uL (130-400); RDW Coefficient of Variation 15.9 % (11.5-14.5); RDW Standard Deviation 46.7 fL (36.4-46.3); Red Blood Count 3.29 M/uL (3.93-5.22); White Blood Count 9.19 K/ul (4.8-10.8)
[2022-05-24] MEDS: ACETAMINOPHEN 325 MG TAB PO PRN ×2 (06:15→21:34)
[2022-05-24] MEDS: LEVOTHYROXINE SODIUM 100 MCG TABLET PO SCH (06:16)
[2022-05-24 06:24] LABS: Albumin Level 2.2 gm/dl (3.4-5.0); BUN Creatinine Ratio 20.2 (10-20); Bilirubin Direct 0.1 mg/dl (0-0.2); Bilirubin,Total 0.4 mg/dl (0.2-1.0); Calcium 7.6 mg/dl (8.5-10.1); Creatinine Clr Calc Pharmacy 50.6 ml/min; Est GFR (African American) 61.3 ml/min; Est GFR (Non-African American) 52.9 ml/min; Phosphorus 3.1 mg/dl (2.5-4.9); Potassium 3.5 mmol/L (3.5-5.1); Total Protein 4.4 gm/dl (6.0-8.3)
[2022-05-24 06:58] LABS: Basophils # (auto) 0.02 K/uL (0-0.2); Basophils % (auto) 0.2 %; Eosinophils # (auto) 0.17 K/uL (0-0.50); Eosinophils % (auto) 1.8 %; Immature Granulocytes # (auto) 0.67 K/uL (0.00-0.02); Immature Granulocytes % (auto) 7.3 %; Lymphocytes # (auto) 0.65 K/uL (1.2-3.4); Lymphocytes % (auto) 7.1 %; Monocytes # (auto) 0.51 K/uL (0.24-0.82); Monocytes % (auto) 5.5 %; Neutrophils # (auto) 7.17 K/uL (1.4-6.5); Neutrophils % (auto) 78.1 %
[2022-05-24] MEDS: INSULIN ASPART PER UNIT SC SCH ×4 (07:30→21:36)
--- NOTE | 2022-05-24 07:52 | Critical Care Progress Note ---
Date of Service May 24, 2022 Assessment & Plan (1) Overdose of trazodone: (2) Hypotension: (3) Anxiety: (4) Asthma: (5) Hypothyroidism: (6) Diabetes mellitus, type II: (7) Depression: (8) Leukocytosis: Plan Cheyanne is a 76 year old female admitted to the ICU for monitoring after Trazodone overdose. Neuro Trazodone overdose/AMS: -Patient endorses intake of surplus Trazodone (possibly 25 pills), also has home oxycodone for pain, history of vascular dementia. -Glucose WNL, hyponatremic to 121 however electrolytes not grossly abnormal. -Most likely lethargic secondary to Trazodone overdose - patient endorses suicidal intent. -Serial EKG's without acute changes, NSR, QTc prolonged - latest at 502. -Hold home pain medications such as trazodone, oxycodone, pregabalin, cyclobenzaprine. -Patient on 1:1 observation, psychiatry consulted - meets criteria for inpatient psychiatric care once medically stable. Opioid dependence: -Has oxycodone at home for back pain, last filled 04/25 30 day supply (90 tablets). Was weaning off oxycodone. -Removed Buprenorphine patch, patient still lethargic on Buprenorphine sublingual 4mg. -Patient more alert this morning however buttocks pain not quelled with Tylenol, added on 2.5mg solution oxycodone IR q6h for pain. Vascular Dementia: -Continue home donepezil and memantine. Anxiety/Depression: -Intentional overdose of Trazodone, possibly 25 pills of Trazodone. -Admitted to hospital for suicidal intentional overdose of Trazodone. -Per psych, hold psych meds for now. Cardiac Hypotension: -A few hypotensive episodes in the ED - improved with fluids. -Given 1L NS on way over, 2L LR bolus in ICU. On NSS 100ml/hr. -Maintain MAP >65. Dyslipidemia: -Can hold home omega 3 fish oil pills for now. Respiratory No history of respiratory disease. Patient saturating well on RA. GI Can trial on clear liquids, advance as tolerated. Constipation/Diarrhea: -Constipation for past week followed by diarrhea following magnesium citrate + miralax for a few days. -No overt stool burden seen on CT A/P. Continue to monitor. Renal/Electrolytes VJ: -Patient with diarrhea and decreased PO intake at home. -Creatinine 2.42 in ED, baseline 0.8. -U/A w/ epithelial cells, casts, 1+ protein, 3+ blood. -FENa 0.3% - most likely pre-renal etiology. -Nephrology consulted. -Expect to improve as BP improving, continue to hold Lisinopril. -Creat 1.04 this AM, resolved. -Repleted fluids as above. Keep on maintenance fluid 100ml/hr. Hyponatremia: -Na 121 in ED. Past history of chronic mild to moderate hyponatremia. -Serum Osmol 267, Urine osmol 322, random urine sodium 15, FENa 0.3%. -Hypotonic hyponatremia w/ low urine sodium indicates most likely extrarenal loss from diarrhea. -Nephrology consulted -Given 150ml bolus saline 05/22. Continue NSS 100ml/hr, q12hr Na checks. -Repleted 1L NS in ED, 2L LR bolus, continue on maintenance fluid at 100ml/hr. Lactic Acidosis: -Lactate 7.7 on arrival, down to 1.6. Resolved. -CPK 1230 may have rhabdomyolysis. -No acute respiratory distress, saturating well, glucose within normal limits. -may be from soft tissue infection vs dehydration. -Repleted 2L LR. Continue with NSS fluid maintenance at 100ml/hr. -Repeat CPK 843, downtrending. Repleted 1gm Magnesium sulfate, 40meq K riders. Strict I&O's. Endo T2DM: -A1c 6.9 - highest over past few years. -Hold home diabetes medications, SSI. -ICU hyperglycemia protocol Hypothyroidism: -Continue home levothyroxine. Heme Anemia: -Hgb 9.8, in the past hemoglobin between 8-13 -Ferritin 11/2021 5, low - most likely iron deficiency anemia. -No colonoscopy found in chart. May benefit from outpatient colonoscopy for further workup. ID Leukocytosis: -WBC 34 on admission to the hospital. Febrile at times to 38 degrees. -Blood cultures growing 2/2 Staphylococcus species. 1/2 Pseudomonas, Streptococcus, may be contaminent. -Lactic acid 7.7 -> 7.2 -> 5.6 -> 1.6. Procalcitonin 14.98 however in setting of VJ. -U/A w/ epithelial cells and casts, no nitrite, LE, bacteria. -CT w/ evidence of soft tissue stranding in buttocks, no evidence of hydronephrosis or diverticulitis. -May be secondary to darcy-anal soft tissue infection. -Started empirically on Zosyn in ED, dose adjusted for potential Pseudomonas infection. Added daptomycin, will await await culture results. -Repeat blood cultures obtained this AM. Procalcitonin down to 5.11 from 14.98. -Wound care consulted. Soft tissue infection: -Hx of fall w/ possible pressure on buttocks area for 6 hours. -CT A/P w/ evidence soft tissue stranding in buttocks. -Erythematous area of induration surrounding buttocks, few pustules developed. -Consulted surgery for ?need for I&D. -Scheduled for I&D abscess R buttocks. Will wait on I&D wound cultures. -Continue on antibiotics as above. Wound care consulted and following. Lines/IV Access Peripheral IVs. DVT Prophylaxis SCDs, Heparin SQ 5000U q12h. Dispo: ICU, overall improving - stable for downgrade. Admission and Anticipated Discharge Date Admission Date: May 22, 2022 Supervising Physician Co-Signing Physician Notes Patient seen and examined. EMR reviewed. Discussed on multidisciplinary rounds and with family practice resident. Agree with assessment plan as noted. Patient is clinically improved today. Her sensorium is much clearer. She is complaining of some pain in her backside and there now appears to be areas of purulence/microabscess formation. General surgery consult obtained with plans to take the patient to the OR today for I&D. We will continue current antibiotics pending deep cultures. Her sodium and acute kidney injury have resolved. Will use low-dose oxycodone for acute pain control. Chronic pain management may be an issue for her in the future. We will try and get her mobilized as much as possible given her buttock issues. Try and keep her off that area is much as possible. She will require physical therapy and Occupational Therapy evaluations at some point. Continue one-to-one given suicidal ideation and reported suicide attempt. Appreciate behavioral health assistance. She is not yet medically cleared. I think the patient is stable to transfer out of the intensive care unit. Will sign off at this point time unless the patient requires ICU level care postoperatively. Subjective Patient seen at the bedside this morning with complaint of lower back pain that is preventing her from laying on her back. She says that she doesn't feel like eating or drinking however she has had some pudding with taking her pills. Denies chest pain, shortness of breath, fevers, chills. Review of Systems Constitutional: as per Subjective / HPI Physical Exam Constitutional: WD/WN, vitals as above Respiratory: normal respiratory effort, lungs clear to auscultation Cardiovascular: II/ holosystolic murmur most prominent at the L upper sternal border. RRR. Gastrointestinal (Abdomen): normal bowel sounds, soft, nontender, no hepatosplenomegaly Skin: Erythematous, edematous, blanching, indurated area surrounding anus most prominent at the right buttocks cheek but also present at the left buttocks cheek spreading down towards the perineum. 2 pustules <1cm in diameter at the right buttocks. Results & Data Results & Data ([facility]) Vital Signs (Past 12 Hours) Vital Signs Temp Pulse Pulse Resp BP BP Pulse Ox 05/24/22 06:00 106 H 20 138/68 97 05/24/22 05:00 92 H 12 126/56 L 98 05/24/22 04:00 94 H 20 131/73 98 05/24/22 03:00 87 28 H 105/53 L 98 05/24/22 03:00 05/24/22 04:00 36.8 C 94 H 21 131/73 98 05/24/22 02:00 92 H 22 132/50 L 99 05/24/22 01:00 91 H 15 114/78 99 05/24/22 00:00 36.6 C 88 18 132/71 100 05/23/22 23:00 82 15 103/66 99 05/24/22 00:00 89 05/23/22 20:00 05/23/22 22:03 88 20 95 05/23/22 22:03 121/63 05/23/22 22:00 90 16 93 05/23/22 21:00 84 25 H 92 05/23/22 21:00 105/63 05/23/22 20:00 88 18 91 05/23/22 20:00 108/58 L Pulse Ox O2 Del Method O2 Del Method O2 Flow Rate O2 Flow Rate 05/24/22 06:00 Nasal Cannula 2 05/24/22 05:00 2 05/24/22 04:00 Nasal Cannula 2 05/24/22 03:00 2 05/24/22 03:00 97 Nasal Cannula 2 05/24/22 04:00 Room Air 05/24/22 02:00 Nasal Cannula 2 05/24/22 01:00 Nasal Cannula 2 05/24/22 00:00 Nasal Cannula 2 05/23/22 23:00 Room Air 05/24/22 00:00 05/23/22 20:00 Nasal Cannula 2 05/23/22 22:03 05/23/22 22:03 05/23/22 22:00 05/23/22 21:00 05/23/22 21:00 05/23/22 20:00 05/23/22 20:00 Resident Activity Tracking Resident Involvement: Resident Care Provided Care Provided: Adult Hospital Medicine
[2022-05-24] MEDS: DAPTOmycin 550 MG in SYRINGE 0 ML IV SCH (08:28)
[2022-05-24] MEDS: PANTOprazole 40 MG TAB PO SCH (08:28)
[2022-05-24] MEDS: MAGNESIUM OXIDE 400 MG TAB PO SCH ×2 (08:28→09:33)
[2022-05-24] MEDS: FAMOTIDINE 40 MG TABLET PO SCH ×2 (08:29→21:35)
[2022-05-24] MEDS: FOLIC ACID 400 MCG TAB PO SCH (08:29)
[2022-05-24] MEDS: HEPARIN SOD 5,000 UNIT/0.5 ML VIAL SQ SCH ×2 (08:30→21:35)
[2022-05-24] MEDS ORDERED: MAGNESIUM SULFATE / D5W 1 GM/100 ML BAG IV ONE (08:30)
[2022-05-24] MEDS: MEMANTINE HCL 10 MG TAB PO SCH ×2 (08:31→21:35)
[2022-05-24] MEDS: POTASSIUM CHLORIDE / WTR 10 MEQ/100 ML PLCT IV SCH ×4 (08:33→12:42)
--- NOTE | 2022-05-24 09:18 | Surgery Consultation ---
Date of Consultation May 24, 2022 Assessment & Plan (1) Abscess of buttock, right: pt is 76 year-old female who was admitted to ICU for Unresponsive episode, metabolic acidosis, hyponatremia IMP : abscess of right buttock, plan, I recommend to do I/D right buttock abscess, D/W benefits, risks and alternatives of the surgery, the risks- infection, sepsis, bleeding, recurrence, pt and her on the phone understood, they agree with surgery, pt's gave consent on phone, I answered all questions, Supervising Physician Co-Signing Physician Notes Patient seen and examined. EMR reviewed. Imaging independently reviewed. Discussed with bedside nurse and on multidisciplinary rounds as well as with family practice resident. Agree with assessment plan as noted above. Patient's sepsis appears improving. Her lactate is clearing. Blood cultures show this concordant results and suspect 1 of these may be a contaminant. Will recheck procalcitonin and order surveillance cultures in 24hours. If persisten tly bacteremic, may need echocardiogram as well as evaluation for potential other sources of seeding. Continue Zosyn at antipseudomonal doses until final second set of blood cultures are finalized. If no Pseudomonas in those cultures, Zosyn can likely be discontinued. Continue to monitor the patient's area of induration on her buttock. Demonstrates no fluctuance and capillary refill is actually better today. Recheck CPK. Follow kidney function and defer additional BMP and fluids to nephrology. The patient appears slightly oversedated with regards to her pain medications. Discussed with pharmacy. We will decrease her buprenorphine to 2 mg and discontinue the OxyContin. Hopefully her sensorium improves. EKG remains unremarkable and can continue supportive care for presumed trazodone overdose. If the patient's mental status improves, she can likely transfer to the floor later today. Behavioral health is monitoring and the patient continues to have a sitter at bedside. History of Present Illness Reason for Consultation: right buttock abscess Requesting Physician: Jaja Holder MD Attending Physician: Jaja Holder MD History of Present Illness CHIEF COMPLAINT: Unresponsive episode, metabolic acidosis, hyponatremia. HISTORY OF PRESENT ILLNESS: This is a 76-year-old female with past medical history significant for type 2 diabetes, hyperlipidemia, hypothyroidism, chronic kidney disease stage III, asthma mild, persistent, history of sleep apnea, hypertension, history of multi-infarct dementia without behavioral disturbance, history of systolic murmur, GERD, obesity, vitamin B12 deficiency, fibromyalgia, back pain, late onset Alzheimer disease without behavioral disturbance, myelopathy, depression, cyclothymic disorder, agoraphobia, who lives at home with her , presents with an unresponsive episode. The patient was feeling weak. The patient is currently alert, awake, and oriented. Says she was weak and she was ambulating with a walker and when she went to bathroom, coming back, she was not able to get into her bed. Her tried to help her. She just laid on the floor. She says EMS was called and when the EMS arrived, she was unresponsive. She looked dry and she was given fluids. On the way in the ambulance, she woke up. By the time she came to the ER, she was alert and oriented. The patient says she was having constipation and she took mag citrate last night and she was having diarrhea, then she was also feeling a lot of nausea and not eating much since last 1 week. In the last 3 nights, she s ays, she took 2 tablets of trazodone trying to pass away, but , she states she just took extra 2 tablets, but when asked again she says she has dementia and she does not exactly remember how much she took. Currently in the ER, her systolic blood pressure is in the 80s and 90s. Her white count was 34,000. ABG, pH of 7.33, bicarbonate of 14. Sodium of 120, anion gap 16, creatinine 2.4. Lactate was 7.2. Troponin I high sensitivity 26. Procalcitonin 14.9. Urinalysis unremarkable. Salicylate less than 3, acetaminophen less than 3, ethyl alcohol less than 10. Rapid COVID test negative. CT of abdomen and pelvis without contrast, no acute findings.EKG showed QTc of 547. Denies any chest pain, denies shortness of breath. Currently, denies any headache or blurred visions. Has runny nose, has some sore throat. No cough, no fevers as per the patient. Urine is dark in the ER. I ( Sarah Amador MD ) got a call for consult right buttock abscess, I reviewed pt's H/P, labs, CT scan with pt and her , ALLERGIES: MICONAZOLE, MORPHINE, ERYTHROMYCIN BASE, BACLOFEN, KLONOPIN, CODEINE, DOXYCYCLINE, GABAPENTIN, MACROLIDE ANTIBIOTICS, PRIMIDONE. PAST MEDICAL HISTORY: As mentioned above. PAST SURGICAL HISTORY: Anal fistula surgery, bilateral sacroiliac joint arthrodesis, bilateral knee arthroplasty, , colonoscopies, decompression of lumbar spine, EGDs, EGD with biopsy, EGD with endoscopic ultrasound, bilateral knee arthroscopy, lumbar fusion surgery, right bunionectomy, cervical spine fusion surgery, tonsillectomy, bilateral cataract surgery, cholecystectomy, revision of right shoulder arthroplasty, vaginal hysterectomy. MEDICATIONS: The patient is on Tylenol Arthritis b.i.d., albuterol 2 puffs inhalation q.4 hours p.r.n., albuterol nebulization p.r.n., aspirin 81 mg p.o. daily, benzonatate 100 mg p.o. t.i.d. p.r.n., buprenorphine 20 mcg per hour patch weekly, Wellbutrin 100 mg p.o. b.i.d., buspirone 5 mg p.o. b.i.d., calcium carbonate 1 tablet p.o. b.i.d., celecoxib 200 mg p.o. a.m., vitamin D 1000 units p.o. a.m., vitamin B12 1000 mcg p.o. daily, cyclobenzaprine 5 mg p.o. q.6 hours p.r.n., Aricept 10 mg p.o. at bedtime, duloxetine 60 mg p.o. b.i.d., Nexium 40 mg p.o. a.m., Vytorin 10/20 mg 1 tablet p.o. at bedtime, famotidine 40 mg p.o. b.i.d., Breo Ellipta 1 inhalation daily, Flonase 2 sprays intranasally at bedtime, folic acid 0.8 mg p.o. a.m., Lasix 40 mg p.o. daily, probiotics 1 tablet p.o. daily, Lamictal 150 mg p.o. at bedtime, levothyroxine 100 mcg p.o. daily, lisinopril 40 mg p.o. daily, magnesium oxide 400 mg p.o. every other day, Namenda XR 14 mg p.o. q.a.m., metformin 1000 mg p.o. b.i.d., Singulair 10 mg p.o. at bedtime, multivitamin 1 tablet p.o. a.m., fish oil 1 capsule p.o. b.i.d., Zofran 4 mg p.o. q.6 hours p.r.n., Lyrica 50 mg p.o. b.i.d., trazodone 25 mg p.o. at bedtime, vitamin E 400 international units p.o. at bedtime. FAMILY HISTORY: Significant for mother has asthma, endometrial cancer, diabetes, COPD; father in a MVA at the age of 46; aunt has breast cancer; another aunt has ovarian cancer; uncle has colon cancer; brother has diabetes; daughter has IBS. SOCIAL HISTORY: . No smoking, no alcohol, no drug use. REVIEW OF SYSTEMS: As per HPI. Rest of the review of systems is negative. Allergies Allergy/AdvReac Type Severity Reaction Status Date / Time miconazole Allergy Intermediate SEVERE Verified 05/22/22 02:54 BURNING ITCHING morphine Allergy Intermediate ITCHING, Verified 05/22/22 02:54 ABD PAIN erythromycin base Allergy Unknown Unknown Verified 05/22/22 02:54 baclofen AdvReac Intermediate NAUSEA/VOMI Verified 05/22/22 02:54 TING clonazepam AdvReac Intermediate PSYCH Verified 05/22/22 02:54 COMPLICATIONS codeine AdvReac Intermediate DYSPEPSIA Verified 05/22/22 02:54 doxycycline AdvReac Intermediate GASTRITIS Verified 05/22/22 02:54 gabapentin AdvReac Intermediate FATIGUE Verified 05/22/22 02:54 Macrolide Antibiotics AdvReac Intermediate DYSPEPSIA Verified 05/22/22 02:54 (TOLERATED Z-PACK) primidone AdvReac Intermediate PSYCH Verified 05/22/22 02:54 COMPLICATIONS Home Medications Medication Instructions Recorded Confirmed Type albuterol sulfate 90 mcg/actuation 2 inh inhalation Q4H PRN SHORT OF 02/13/19 05/22/22 History breath activated powder inhaler BREATH bupropion HCl 100 mg tablet,12 hr 100 mg PO BID 02/13/19 05/22/22 History sustained-release (Wellbutrin SR) celecoxib 200 mg capsule (Celebrex) 200 mg PO QAM 02/13/19 05/22/22 History cholecalciferol (vitamin D3) 25 1,000 unit PO QAM 02/13/19 05/22/22 History mcg (1,000 unit) tablet (Vitamin D3) cyclobenzaprine 5 mg tablet 5 mg PO Q6H PRN Pain 02/13/19 05/22/22 History donepezil 10 mg tablet (Aricept) 10 mg PO HS 02/13/19 05/22/22 History esomeprazole magnesium 40 mg 40 mg PO QAM 02/13/19 05/22/22 History capsule,delayed release (Nexium) ezetimibe 10 mg-simvastatin 20 mg 1 tab PO HS 02/13/19 05/22/22 History tablet (Vytorin) fluticasone propionate 50 2 spray intranasal HS 02/13/19 05/22/22 History mcg/actuation nasal spray,suspension (Flonase Allergy Relief) folic acid 0.8 mg capsule 0.8 mg PO QAM 02/13/19 05/22/22 History lamotrigine 150 mg tablet 150 mg PO HS 02/13/19 05/22/22 History (Lamictal) levothyroxine 100 mcg tablet 100 mcg PO QAM 02/13/19 05/22/22 History memantine 14 mg capsule 14 mg PO QA 02/13/19 05/22/22 History sprinkle,extended release 24hr (Namenda XR) metformin 1,000 mg tablet 1,000 mg PO BID 02/13/19 05/22/22 History montelukast 10 mg tablet 10 mg PO HS 02/13/19 05/22/22 History (Singulair) alocdfdgmzeh-nxihmosh-hwkxoh 1 tab PO QAM 02/13/19 05/22/22 History tablet (Multivitamin 50 Plus tablet) vitamin E 268 mg (400 unit) capsule 400 unit PO HS 02/13/19 05/22/22 History trazodone 50 mg tablet 25 mg PO HS 11/13/19 05/22/22 History famotidine 40 mg tablet (Pepcid) 40 mg PO BID 04/12/20 05/22/22 History duloxetine 60 mg capsule,delayed 60 mg PO BID 05/19/21 05/22/22 History release (Cymbalta) furosemide 40 mg tablet 40 mg PO DAILY #90 tabs 11/22/21 05/22/22 Rx acetaminophen 650 mg 1,300 mg PO AMHS 01/19/22 05/22/22 History tablet,extended release aspirin 81 mg tablet,delayed 81 mg PO DAILY 01/19/22 05/22/22 History release (Yolis Low Dose Aspirin) buspirone 5 mg tablet 5 mg PO BID 01/19/22 05/22/22 History calcium carbonate 600 mg-vitamin 1 tab PO BID 01/19/22 05/22/22 History D3 20 mcg (800 unit) chewable tablet (Caltrate 600 plus D) cyanocobalamin (vitamin B-12) 1,000 mcg PO DAILY 01/19/22 05/22/22 History 1,000 mcg tablet (Vitamin B-12) fluticasone furoate 200 1 ea inhalation DAILY 01/19/22 05/22/22 History mcg-vilanterol 25 mcg/dose inhalation powder (Breo Ellipta) omega 0-kce-dzi-fish oil 1,200 mg 1 cap PO BID 01/19/22 05/22/22 History (144 mg-216 mg) capsule (Fish Oil) lisinopril 40 mg tablet 40 mg PO DAILY #90 tabs 04/04/22 05/22/22 Rx L.acidoph-L.rhamn-B.bifidum-B.long 1 tab PO DAILY 05/22/22 05/22/22 History 12.9 mg (2 billion cell) DR michelle (Probiotic Acidophilus Biobbrenda) albuterol sulfate 2.5 mg/3 mL 2.5 mg inhalation DIRECTED PRN 05/22/22 05/22/22 History (0.083 %) solution for nebulization Shortness Of Breath Or Wheezing benzonatate 100 mg capsule 100 mg PO TID PRN Cough 05/22/22 05/22/22 History buprenorphine 20 mcg/hour weekly 1 patch transdermal Q7D 05/22/22 05/22/22 History transdermal patch magnesium oxide 400 mg PO Q OTHER DAY 05/22/22 05/22/22 History ondansetron HCl 4 mg tablet 4 mg PO Q6H PRN NAUSEA/VOMITING 05/22/22 05/22/22 History pregabalin 50 mg capsule (Lyrica) 50 mg PO BID 05/22/22 05/22/22 History Patient History Medical History (Updated 05/24/22 @ 09:19 by Sarah Amador MD) Acute hyponatremia Acute kidney injury Anemia Anxiety Asthma STABLE Cyclothymic disorder MOOD DISORDER Depression Diabetes mellitus, type 2 NIDDM Dry eye syndrome Dyspepsia CHRONIC FELT D/T MEDICATION INTERACTIONS (POLYPHARMACY) Fibromyalgia GERD (gastroesophageal reflux disease) OCCASIONAL History of blood transfusion REMOTE POST-OP Hyperlipidemia Hypertension Hyponatremia Hypothyroidism Kidney stones Metabolic acidosis with increased anion gap and accumulation of organic acids Migraine 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 Osteoarthritis Peripheral neuropathy B/L UE/LE Sleep apnea BIPAP Spinal stenosis Ventral hernia Surgical History Fusion of spine LUMBAR X2 H/O foot surgery RIGHT HAMMERTOE AND BUNION REPAIR H/O: hysterectomy + ANTERIOR/POSTERIOR REPAIR History of bladder surgery SUSPENSION History of cataract surgery RIGHT/LEFT History of section History of cholecystectomy History of colonoscopy History of esophagogastroduodenoscopy (EGD) History of shoulder surgery RIGHT SHOULDER History of surgery perianal fistula History of tonsillectomy Adenoidectomy History of tooth extraction History of total knee replacement RIGHT/LEFT History of vaginal hysterectomy Family History Mother Family history of diabetes mellitus COPD (chronic obstructive pulmonary disease) Diabetes Hypertension Brother Family history of diabetes mellitus Diabetes Renal failure Sister Family history of diabetes mellitus Malignant melanoma Uncle Family hx of colon cancer Colorectal cancer Paternal Aunt Breast cancer Maternal Ovarian cancer Paternal Social History Smoking Status: Never smoker Second Hand Exposure: No; Hx Alcohol Use: No Hx Substance Use: No Preferred Language: Yemeni Communication Ability: Impaired Visual Impairment: Limited Hearing Ability: Normal Pension Consultant Required: No Beliefs That Will Affect Care: None marital status: Current Living Situation: Spouse Feels Safe at Home: Yes Assistive Devices: Cane, Walker and Wheelchair Physical Exam Constitutional: WD/WN, vitals as above Eyes: PERRL, conjunctivae normal, anicteric sclerae Neck: trachea midline, no thyromegaly Respiratory: normal respiratory effort, lungs clear to auscultation Cardiovascular: RRR, no murmur, no edema Gastrointestinal (Abdomen): soft, ND, NT, BS + Skin: redness tenderness at right buttock area with drainage pus from 2 opening skin, cellulitis size about [id number], Neurologic: awake, allert Psychiatric: Orientation: alert Results & Data ([facility]) Vital Signs (Past 12 Hours) Vital Signs Temp Pulse Pulse Resp BP BP Pulse Ox 05/24/22 06:00 106 H 20 138/68 97 05/24/22 05:00 92 H 12 126/56 L 98 05/24/22 04:00 94 H 20 131/73 98 05/24/22 03:00 87 28 H 105/53 L 98 05/24/22 03:00 05/24/22 04:00 36.8 C 94 H 21 131/73 98 05/24/22 02:00 92 H 22 132/50 L 99 05/24/22 01:00 91 H 15 114/78 99 05/24/22 00:00 36.6 C 88 18 132/71 100 05/23/22 23:00 82 15 103/66 99 05/24/22 00:00 89 05/23/22 22:03 88 20 95 05/23/22 22:03 121/63 05/23/22 22:00 90 16 93 Pulse Ox O2 Del Method O2 Del Method O2 Flow Rate O2 Flow Rate 05/24/22 06:00 Nasal Cannula 2 05/24/22 05:00 2 05/24/22 04:00 Nasal Cannula 2 05/24/22 03:00 2 05/24/22 03:00 97 Nasal Cannula 2 05/24/22 04:00 Room Air 05/24/22 02:00 Nasal Cannula 2 05/24/22 01:00 Nasal Cannula 2 05/24/22 00:00 Nasal Cannula 2 05/23/22 23:00 Room Air 05/24/22 00:00 05/23/22 22:03 05/23/22 22:03 05/23/22 22:00 Laboratory Results Abnormal lab results 05/23/22 05/23/22 05/23/22 Range/Units 05:04 10:28 11:05 RBC (3.93-5.22) M/uL Hgb (12.0-16.0) g/dl Hct (34.1-44.9) % RDW Std Deviation (36.4-46.3) fL RDW Coeff of Zeynep (11.5-14.5) % Neut # (Auto) (1.4-6.5) K/uL Lymph # (Auto) (1.2-3.4) K/uL Immature Gran # (Auto) (0.00-0.02) K/uL Sodium (136-145) mmol/L BUN (6-23) mg/dl Creatinine (0.6-1.2) mg/dl BUN/Creatinine Ratio (10-20) Glucose (70-99(Fasting)) mg/dl POC Glucose 146 H (70-99) mg/dl Calcium (8.5-10.1) mg/dl Total Creatine Kinase 843 H (26-192) U/L Total Protein (6.0-8.3) gm/dl Albumin (3.4-5.0) gm/dl Procalcitonin 5.11 H (0-0.5) ng/ml 05/23/22 05/23/22 05/23/22 Range/Units 16:20 17:00 20:29 RBC (3.93-5.22) M/uL Hgb (12.0-16.0) g/dl Hct (34.1-44.9) % RDW Std Deviation (36.4-46.3) fL RDW Coeff of Zeynep (11.5-14.5) % Neut # (Auto) (1.4-6.5) K/uL Lymph # (Auto) (1.2-3.4) K/uL Immature Gran # (Auto) (0.00-0.02) K/uL Sodium 131 L (136-145) mmol/L BUN 30 H (6-23) mg/dl Creatinine 1.35 H (0.6-1.2) mg/dl BUN/Creatinine Ratio 22.2 H (10-20) Glucose 115 H (70-99(Fasting)) mg/dl POC Glucose 119 H 114 H (70-99) mg/dl Calcium 7.8 L (8.5-10.1) mg/dl Total Creatine Kinase (26-192) U/L Total Protein (6.0-8.3) gm/dl Albumin (3.4-5.0) gm/dl Procalcitonin (0-0.5) ng/ml 05/24/22 05/24/22 05/24/22 Range/Units 05:42 05:42 07:35 RBC 3.29 L (3.93-5.22) M/uL Hgb 8.6 L (12.0-16.0) g/dl Hct 26.5 L (34.1-44.9) % RDW Std Deviation 46.7 H (36.4-46.3) fL RDW Coeff of Zeynep 15.9 H (11.5-14.5) % Neut # (Auto) 7.17 H (1.4-6.5) K/uL Lymph # (Auto) 0.65 L (1.2-3.4) K/uL Immature Gran # (Auto) 0.67 H (0.00-0.02) K/uL Sodium 133 L (136-145) mmol/L BUN (6-23) mg/dl Creatinine (0.6-1.2) mg/dl BUN/Creatinine Ratio 20.2 H (10-20) Glucose 111 H (70-99(Fasting)) mg/dl POC Glucose 114 H (70-99) mg/dl Calcium 7.6 L (8.5-10.1) mg/dl Total Creatine Kinase (26-192) U/L Total Protein 4.4 L (6.0-8.3) gm/dl Albumin 2.2 L (3.4-5.0) gm/dl Procalcitonin (0-0.5) ng/ml Diagnostic Findings CT abd pelvis wo con CLINICAL HISTORY: n/v/d TECHNIQUE: Helical axial images of the abdomen and pelvis were obtained. Automated dose lowering techniques and/or adjustment according to patient size were utilized for this exam. This exam was performed without intravenous contrast. CT DOSE: 1403.46 mGy.cm COMPARISON: Comparison is made to CT abdomen pelvis 01/18/2018 FINDINGS: Lower chest: Bibasilar atelectasis versus scarring is seen. Liver: Unremarkable. No focal lesions are seen. Gallbladder and biliary tree: Patient is status post cholecystectomy. Physiologic prominence of the biliary ducts is noted. Pancreas: Unremarkable, no focal lesions. Spleen: Unremarkable. Adrenals: Unremarkable. Kidneys and ureters: Perinephric stranding is noted bilaterally. Bladder: Limited evaluation due to underdistention. Reproductive organs: Patient is status post hysterectomy. Bowel: Diverticulosis is seen without evidence of diverticulitis. The appendix is unremarkable. No evidence of bowel obstruction is seen. There is a moderate hiatal hernia. Lymph nodes Retroperitoneal: Unremarkable. Pelvic: Unremarkable. Mesenteric: Subcentimeter lymph nodes are noted. Peritoneum: Fat containing umbilical hernia is seen. Vessels: Unremarkable. Abdominal wall: Soft tissue stranding is seen in the region of the buttocks, partially visualized. Bones: Posterior fixation hardware seen in the spine. Degenerative changes are seen. No evidence of acute fracture. IMPRESSION: 1. No evidence of bowel obstruction. 2. Partially visualized, there is soft tissue stranding in the buttocks which may represent trauma or cellulitis. Clinical correlation is recommended. No evidence of osteomyelitis is seen. 3. Additional findings as above.
--- NOTE | 2022-05-24 10:06 | History & Physical Bridge Note ---
Date of Service May 24, 2022 History & Physical Bridge Note I have examined the patient, reviewed the History & Physical and in the interval since the performance of the History & Physical I have noted the following changes of clinical significance: no changes noted Supervising Physician Co-Signing Physician Notes Patient seen and examined. EMR reviewed. Imaging independently reviewed. Discussed with bedside nurse and on multidisciplinary rounds as well as with family practice resident. Agree with assessment plan as noted above. Patient's sepsis appears improving. Her lactate is clearing. Blood cultures show this concordant results and suspect 1 of these may be a contaminant. Will recheck procalcitonin and order surveillance cultures in 24hours. If persistently bacteremic, may need echocardiogram as well as evaluation for potential other sources of seeding. Continue Zosyn at antipseudomonal doses until final second set of blood cultures are finalized. If no Pseudomonas in those cultures, Zosyn can likely be discontinued. Continue to monitor the patient's area of induration on her buttock. Demonstrates no fluctuance and capillary refill is actually better today. Recheck CPK. Follow kidney function and defer additional BMP and fluids to nephrology. The patient appears slightly oversedated with regards to her pain medications. Discussed with pharmacy. We will decrease her buprenorphine to 2 mg and discontinue the OxyContin. Hopefully her sensorium improves. EKG remains unremarkable and can continue supportive care for presumed trazodone overdose. If the patient's mental status improves, she can likely transfer to the floor later today. Behavioral health is monitoring and the patient continues to have a sitter at bedside.
[2022-05-24] MEDS ORDERED: BUPIVACAINE 0.5 % 5 MG/1 ML MPF 30ML VIAL ONE (10:42)
--- NOTE | 2022-05-24 10:43 | Nephrology Progress Note ---
Date of Service May 24, 2022 Assessment & Plan (1) Acute kidney injury: (2) Acute hyponatremia: (3) Metabolic acidosis with increased anion gap and accumulation of organic acids: (4) Overdose of trazodone: (5) Leukocytosis: (6) Lactic acidosis: (7) Hypomagnesemia: Plan VJ and multiple electrolyte abnormality including hyponatremia, gap metabolic acidosis and lactic acidosis with no prior history of CKD. Presented with history of recent diarrhea, trazodone over does. urinalysis with microscopic hematuria but no proteinuria. Renal imaging showed bilateral otherwise normal size kidney. VJ most likely hemodynamically mediated with persistent hypotension, volume depletion. gap metabolic acidosis with VJ and elevated lactate with hypotension. Hyponatremia most likely related to volume depletion as well, Urine Na was low. Acute kidney injury and electrolyte abnormality resolved, sodium improved to 134. Blood pressure improved with systolic blood pressure staying in 120s to 130s. otherwise asymptomatic. --continue IV NS while po intake remains poor. Okay to resume lisinopril if blood pressure staying elevated. -- Expect sodium to stay relatively stable. Will sign off. Thank you for the consultation, please contact if any further assistance needed. Admission and Anticipated Discharge Date Admission Date: May 22, 2022 Lianna Edward Was seen and examined this morning. She is much more awake and alert. Denies any specific symptoms. Blood pressure stable. Sodium improved to 133, VJ and other electrolyte abnormality resolved. Review of Systems Review of Systems: Detailed review of system was otherwise unremarkable. Physical Exam Constitutional: WD/WN, vitals as above + ill appearing; no acute distress Eyes: + anicteric sclerae Neck: normal visual inspection Respiratory: no respiratory distress Auscultation: lungs clear to auscultation bilaterally Cardiovascular: Rate/Rhythm: regular rate and regular rhythm Heart Sounds: normal S1 and normal S2 Extremities: no edema Musculoskeletal: Extremities: extremities normal to inspection Skin: no rashes Neurologic: no focal motor deficits Psychiatric: A+Ox3, euthymic affect Results & Data ([facility]) Vital Signs (Past 12 Hours) Vital Signs Temp Pulse Pulse Resp BP BP Pulse Ox 05/24/22 06:00 106 H 20 138/68 97 05/24/22 05:00 92 H 12 126/56 L 98 05/24/22 04:00 94 H 20 131/73 98 05/24/22 03:00 87 28 H 105/53 L 98 05/24/22 03:00 05/24/22 04:00 36.8 C 94 H 21 131/73 98 05/24/22 02:00 92 H 22 132/50 L 99 05/24/22 01:00 91 H 15 114/78 99 05/24/22 00:00 36.6 C 88 18 132/71 100 05/23/22 23:00 82 15 103/66 99 05/24/22 00:00 89 Pulse Ox O2 Del Method O2 Del Method O2 Flow Rate O2 Flow Rate 05/24/22 06:00 Nasal Cannula 2 05/24/22 05:00 2 05/24/22 04:00 Nasal Cannula 2 05/24/22 03:00 2 05/24/22 03:00 97 Nasal Cannula 2 05/24/22 04:00 Room Air 05/24/22 02:00 Nasal Cannula 2 05/24/22 01:00 Nasal Cannula 2 05/24/22 00:00 Nasal Cannula 2 05/23/22 23:00 Room Air 05/24/22 00:00 PG Care Time/CCT Total # of Minutes Spent Total Time Spent with Patient: Total time spent is greater than 50% in coordination of care (as documented) at patient's floor/unit and/or counseling patient: Coding Level of Care Code 69737 Subseq Hosp Care Lvl 2 Diagnoses Acute kidney injury N17.9 Acute hyponatremia E87.1 Metabolic acidosis with increased anion gap and accumulation of organic acids E87.2 Overdose of trazodone T43.211A Leukocytosis D72.829 Lactic acidosis E87.2 Hypomagnesemia E83.42
--- NOTE | 2022-05-24 11:19 | Billing Data ---
Date of Service May 24, 2022 Coding Level of Care Code 55664 Subseq Hosp Care Lvl 3
--- NOTE | 2022-05-24 11:54 | Anesthesiology Consultation ---
Date of Service May 24, 2022 Assessment & Plan (1) Encounter for pre-operative examination: Chart Review Chart Review: Acceptable Risk for Surgery History Surgery Operation Date: 05/24/22 10:45 Proposed Procedures p Debridement Right Buttock Abscess - Sarah Amador MD Height/Weight Height: 5 ft 3 in Weight: 90.2 kg Allergies Allergy/AdvReac Type Severity Reaction Status Date / Time miconazole Allergy Intermediate SEVERE Verified 05/22/22 02:54 BURNING ITCHING morphine Allergy Intermediate ITCHING, Verified 05/22/22 02:54 ABD PAIN erythromycin base Allergy Unknown Unknown Verified 05/22/22 02:54 baclofen AdvReac Intermediate NAUSEA/VOMI Verified 05/22/22 02:54 TING clonazepam AdvReac Intermediate PSYCH Verified 05/22/22 02:54 COMPLICATIONS codeine AdvReac Intermediate DYSPEPSIA Verified 05/22/22 02:54 doxycycline AdvReac Intermediate GASTRITIS Verified 05/22/22 02:54 gabapentin AdvReac Intermediate FATIGUE Verified 05/22/22 02:54 Macrolide Antibiotics AdvReac Intermediate DYSPEPSIA Verified 05/22/22 02:54 (TOLERATED Z-PACK) primidone AdvReac Intermediate PSYCH Verified 05/22/22 02:54 COMPLICATIONS Medications Home Medications Medication Instructions Recorded Confirmed Last Taken albuterol sulfate 90 mcg/actuation 2 inh inhalation Q4H PRN SHORT OF 02/13/19 05/22/22 04/08/19 22:00 breath activated powder inhaler BREATH bupropion HCl 100 mg tablet,12 hr 100 mg PO BID 02/13/19 05/22/22 04/09/19 04:30 sustained-release (Wellbutrin SR) celecoxib 200 mg capsule (Celebrex) 200 mg PO QAM 02/13/19 05/22/22 04/01/19 08:00 cholecalciferol (vitamin D3) 25 1,000 unit PO QAM 02/13/19 05/22/22 03/26/19 08:00 mcg (1,000 unit) tablet (Vitamin D3) cyclobenzaprine 5 mg tablet 5 mg PO Q6H PRN Pain 02/13/19 05/22/22 Unknown donepezil 10 mg tablet (Aricept) 10 mg PO HS 02/13/19 05/22/22 04/08/19 18:00 esomeprazole magnesium 40 mg 40 mg PO QAM 02/13/19 05/22/22 04/09/19 04:30 capsule,delayed release (Nexium) ezetimibe 10 mg-simvastatin 20 mg 1 tab PO 02/13/19 05/22/22 04/08/19 18:00 tablet (Vytorin) fluticasone propionate 50 2 spray intranasal 02/13/19 05/22/22 04/08/19 08:00 mcg/actuation nasal spray,suspension (Flonase Allergy Relief) folic acid 0.8 mg capsule 0.8 mg PO [facility] 02/13/19 05/22/22 04/08/19 08:00 lamotrigine 150 mg tablet 150 mg PO 02/13/19 05/22/22 04/08/19 22:00 (Lamictal) levothyroxine 100 mcg tablet 100 mcg PO [facility] 02/13/19 05/22/22 04/09/19 04:30 memantine 14 mg capsule 14 mg PO [facility] 02/13/19 05/22/22 04/08/19 08:00 sprinkle,extended release 24hr (Namenda XR) metformin 1,000 mg tablet 1,000 mg PO BID 02/13/19 05/22/22 04/07/19 18:00 montelukast 10 mg tablet 10 mg PO 02/13/19 05/22/22 04/08/19 18:00 (Singulair) zfsglhxmydzs-tdzwsiqc-meeoen 1 tab PO [facility] 02/13/19 05/22/22 04/08/19 08:00 tablet (Multivitamin 50 Plus tablet) vitamin E 268 mg (400 unit) capsule 400 unit PO 02/13/19 05/22/22 03/26/19 08:00 trazodone 50 mg tablet 25 mg PO 11/13/19 05/22/22 Unknown famotidine 40 mg tablet (Pepcid) 40 mg PO BID 04/12/20 05/22/22 Unknown duloxetine 60 mg capsule,delayed 60 mg PO BID 05/19/21 05/22/22 Unknown release (Cymbalta) furosemide 40 mg tablet 40 mg PO DAILY #90 tabs 11/22/21 05/22/22 Unknown acetaminophen 650 mg 1,300 mg PO [facility] 01/19/22 05/22/22 Unknown tablet,extended release aspirin 81 mg tablet,delayed 81 mg PO DAILY 01/19/22 05/22/22 Unknown release (Yolis Low Dose Aspirin) buspirone 5 mg tablet 5 mg PO BID 01/19/22 05/22/22 Unknown calcium carbonate 600 mg-vitamin 1 tab PO BID 01/19/22 05/22/22 Unknown D3 20 mcg (800 unit) chewable tablet (Caltrate 600 plus D) cyanocobalamin (vitamin B-12) 1,000 mcg PO DAILY 01/19/22 05/22/22 Unknown 1,000 mcg tablet (Vitamin B-12) fluticasone furoate 200 1 ea inhalation DAILY 01/19/22 05/22/22 Unknown mcg-vilanterol 25 mcg/dose inhalation powder (Breo Ellipta) omega 9-zfl-eiz-fish oil 1,200 mg 1 cap PO BID 01/19/22 05/22/22 Unknown (144 mg-216 mg) capsule (Fish Oil) lisinopril 40 mg tablet 40 mg PO DAILY #90 tabs 04/04/22 05/22/22 Unknown L.acidoph-L.rhamn-B.bifidum-B.long 1 tab PO DAILY 05/22/22 05/22/22 Unknown 12.9 mg (2 billion cell) tabletDR (Probiotic Acidophilus Violeta) albuterol sulfate 2.5 mg/3 mL 2.5 mg inhalation DIRECTED PRN 05/22/22 05/22/22 Unknown (0.083 %) solution for nebulization Shortness Of Breath Or Wheezing benzonatate 100 mg capsule 100 mg PO TID PRN Cough 05/22/22 05/22/22 Unknown buprenorphine 20 mcg/hour weekly 1 patch transdermal Q7D 05/22/22 05/22/22 Unknown transdermal patch magnesium oxide 400 mg PO Q OTHER DAY 05/22/22 05/22/22 Unknown ondansetron HCl 4 mg tablet 4 mg PO Q6H PRN NAUSEA/VOMITING 05/22/22 05/22/22 Unknown pregabalin 50 mg capsule (Lyrica) 50 mg PO BID 05/22/22 05/22/22 Unknown Active Medications Generic Name Dose Route Start Last Admin Trade Name Freq PRN Reason Stop Dose Admin Acetaminophen 650 mg 05/24/22 01:07 05/24/22 06:15 Acetaminophen 325 Mg Tab PO 06/23/22 01:06 650 mg Q4H PRN Administration Pain or Fever Dextrose 25 - 50 ml 05/22/22 21:50 05/22/22 21:58 Dextrose 50% 50 Ml Syringe IV 06/21/22 21:49 25 ml UD PRN Administration Hypoglycemia Protocol Protocol Donepezil HCl 10 mg 05/22/22 21:00 05/23/22 21:24 Donepezil Hcl 10 Mg Tab PO 06/21/22 20:59 10 mg HS SARAI Administration Famotidine 40 mg 05/22/22 09:00 05/24/22 08:29 Famotidine 40 Mg Tablet PO 06/21/22 08:59 40 mg BID SARAI Administration Fluticasone Propionate 2 sprays 05/22/22 21:00 05/23/22 21:24 Fluticasone Propionate Na Spr 16 Gm Btl NA 06/21/22 20:59 2 sprays HS SARAI Administration Fluticasone/Vilanterol 1 puffs 05/22/22 09:00 05/23/22 08:17 Fluticasone/Vilanterol 200/25mcg 14 Puffs/Inhaler INH 06/21/22 08:59 1 puffs DAILY SARAI Administration Folic Acid 800 mcg 05/22/22 09:00 05/24/22 08:29 Folic Acid 400 Mcg Tab PO 06/21/22 08:59 800 mcg QAM SARAI Administration Heparin Sodium (Porcine) 5,000 units 05/23/22 21:00 05/24/22 08:30 Heparin Sod 5,000 Unit/0.5 Ml Vial SQ 06/22/22 20:59 5,000 units Q12 SARAI Administration Sodium Chloride 1,000 mls @ 100 mls/hr 05/22/22 08:00 05/24/22 04:50 Nss 1000ml IV 06/21/22 07:59 100 mls/hr .Q10H SARAI Administration Daptomycin 550 mg/ Syringe 11 mls @ 5.5 mls/min 05/23/22 08:30 05/24/22 08:28 IV 06/06/22 08:29 5.5 mls/min Q24H SARAI Administration Protocol Piperacillin Sod/Tazobactam 120 mls @ 30 mls/hr 05/23/22 10:00 05/24/22 10:29 Sod 4.5 gm/ Dextrose IV 06/06/22 09:59 30 mls/hr Q8H SARAI Administration Protocol Potassium Chloride 10 meq in 100 mls @ 100 mls/hr 05/24/22 08:30 05/24/22 10:56 K Myron / Wtr IV 05/24/22 12:29 50 mls/hr Q1H SARAI Administration Insulin Aspart 0 units 05/22/22 08:25 05/24/22 07:30 Insulin Aspart Per Unit SC 06/21/22 08:24 Not Given ACHS SARAI Levothyroxine Sodium 100 mcg 05/22/22 09:00 05/24/22 06:16 Levothyroxine Sodium 100 Mcg Tablet PO 06/21/22 08:59 100 mcg DAILYBB SARAI Administration Magnesium Oxide 400 mg 05/22/22 09:00 05/24/22 08:28 Magnesium Oxide 400 Mg Tab PO 06/21/22 08:59 400 mg Q2D@0900 SARAI Administration Memantine 10 mg 05/23/22 09:00 05/24/22 08:31 Memantine Hcl 10 Mg Tab PO 06/22/22 08:59 10 mg BID SARAI Administration Montelukast Sodium 10 mg 05/22/22 21:00 05/23/22 21:24 Montelukast Sodium 10 Mg Tablet PO 06/21/22 20:59 10 mg HS SARAI Administration Pantoprazole Sodium 40 mg 05/23/22 09:00 05/24/22 08:28 Pantoprazole 40 Mg Tab PO 06/22/22 08:59 40 mg QAM SARAI Administration NPO Date Last Intake of Fluids: 05/24/22 Last Intake of Fluids Comment: per report had sips of water with meds this am Date Last Intake of Solids: 05/23/22 Last Intake of Solids Comment: per report nothing today Past Medical History Medical History Acute hyponatremia Acute kidney injury Anemia Anxiety Asthma STABLE Cyclothymic disorder MOOD DISORDER Depression Diabetes mellitus, type 2 NIDDM Dry eye syndrome Dyspepsia CHRONIC FELT D/T MEDICATION INTERACTIONS (POLYPHARMACY) Fibromyalgia GERD (gastroesophageal reflux disease) OCCASIONAL History of blood transfusion REMOTE POST-OP Hyperlipidemia Hypertension Hyponatremia Hypothyroidism Kidney stones Metabolic acidosis with increased anion gap and accumulation of organic acids Migraine 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 Osteoarthritis Peripheral neuropathy B/L UE/LE Sleep apnea BIPAP Spinal stenosis Ventral hernia Past Family History Family History Mother Family history of diabetes mellitus COPD (chronic obstructive pulmonary disease) Diabetes Hypertension Brother Family history of diabetes mellitus Diabetes Renal failure Sister Family history of diabetes mellitus Malignant melanoma Uncle Family hx of colon cancer Colorectal cancer Paternal Aunt Breast cancer Maternal Ovarian cancer Paternal Past Surgical History Surgical History Fusion of spine LUMBAR X2 H/O foot surgery RIGHT HAMMERTOE AND BUNION REPAIR H/O: hysterectomy + ANTERIOR/POSTERIOR REPAIR History of bladder surgery SUSPENSION History of cataract surgery RIGHT/LEFT History of section History of cholecystectomy History of colonoscopy History of esophagogastroduodenoscopy (EGD) History of shoulder surgery RIGHT SHOULDER History of surgery perianal fistula History of tonsillectomy Adenoidectomy History of tooth extraction History of total knee replacement RIGHT/LEFT History of vaginal hysterectomy Social History Smoking Status: Never smoker Hx Alcohol Use: No Hx Substance Use: No substance use type: does not use Physical Exam Vital Signs Last Vital Signs Temp 36.6 C 05/24/22 11:45 Pulse 99 H 05/24/22 11:45 Resp 18 05/24/22 11:45 BP 114/52 L 05/24/22 11:45 Pulse Ox 97 05/24/22 11:45 O2 Del Method 05/24/22 11:45 O2 Flow Rate 2.0 05/24/22 11:45 Testing Laboratory Results 05/24/22 05:42 05/24/22 05:42 PT 12.0 Seconds (9.0-12.0) 05/22/22 02:48 INR 1.1 (0.9-1.1) 05/22/22 02:48 APTT 35.0 Seconds (21.0-31.0) H 05/22/22 02:48 Hemoglobin A1c 6.9 % (4.5-5.6) H 05/23/22 05:04 Urine Color Dark Yellow 05/22/22 05:50 Urine Appearance Cloudy (Clear) A 05/22/22 05:50 Urine pH 5.0 (4.5-7.5) 05/22/22 05:50 Ur Specific [place] 1.024 (1.000-1.030) 05/22/22 05:50 Urine Protein 1+ (Negative) H 05/22/22 05:50 Urine Glucose (UA) 1+ (Negative) H 05/22/22 05:50 Urine Ketones Trace (Negative) H 05/22/22 05:50 Urine Nitrite Negative (Negative) 05/22/22 05:50 Ur Leukocyte Esterase Negative (Negative) 05/22/22 05:50 Urine WBC (Auto) 1-5 /hpf (0-5) 05/22/22 05:50 Urine RBC (Auto) 0-4 /hpf (0-4) 05/22/22 05:50 U Hyaline Cast (Auto) 1-5 /lpf (0-5) 05/22/22 05:50 U Epithel Cells (Auto) >30 /lpf (0-5) H 05/22/22 05:50 Urine Bacteria (Auto) Negative (Negative) 05/22/22 05:50 05/22/22 05:50 Urine Culture - Final Urine,Straight Cath No growth - less than 1,000 colonies/mL. 05/22/22 02:56 Aerobic Blood Culture - Preliminary Blood Staphylococcus species Anaerobic Blood Culture - Preliminary No growth in Anaerobic bottle after 48 hours. 05/22/22 02:48 Aerobic Blood Culture - Final Blood Staph aureus MRSA Pseudomonas aeruginosa Alpha strep not S.pne/enteroco Anaerobic Blood Culture - Final Alpha strep not S.pne/enteroco 05/24/22 07:35 POC Glucose 114 H Electrocardiogram Date: 05/24/22 Findings: + NSR @ (99) Chest X-Ray Date: 05/22/22 Findings: + NAD Echocardiogram Date: 06/07/21 EF: 53% Valvular Disease: + (mild)
[2022-05-24] MEDS ORDERED: fentaNYL citrate 100 MCG/2 ML VIAL IV PRN (12:33)
[2022-05-24] MEDS ORDERED: ATROPINE SULFATE 0.1 MG/ML 10ML SYR IV PRN (12:33)
[2022-05-24] MEDS ORDERED: ONDANSETRON INJ 2 MG/ML 2 ML VIAL IV PRN (12:33)
[2022-05-24] MEDS: FLUTICASONE/VILANTEROL 200/25MCG 14 PUFFS/INHALER INH SCH (12:41)
[2022-05-24] MEDS ORDERED: LIDOCAINE 2% MPF LOCAL 5 ML VIAL INFIL ONE (12:49)
[2022-05-24] MEDS ORDERED: PROPOFOL IV EMULSION 10 MG/ML 20 ML VIAL IV ONE (12:49)
[2022-05-24] MEDS ORDERED: PHENYLEPHRINE 100MCG/ML 5ML SYR ONE (12:49)
[2022-05-24] MEDS ORDERED: fentaNYL citrate 100 MCG/2 ML VIAL ONE (12:50)
--- NOTE | 2022-05-24 13:09 | Psychiatric Progress Note ---
Date of Service May 24, 2022 Impression / Recommendations Impression This is a 76 yo admitted medically following an intentional overdose suicide attempt. Diagnostically consistent with MDD in the context of recent stressors including worsening pain and recent medical issues and possible contribution from vascular dementia leading to impulsivity-based on current cognitive status difficult to determine what is delirium from overdose and what component may be from listed history of dementia. Acute risk of self-harm remains elevated and high given suicide attempt requiring medical admission, major depressive symptoms, impulsivity, hopelessness, ongoing regret at being alive, limited insight. Given elevated risk of harm to self they will likely meet criteria for inpatient psychiatric care for diagnostic clarification, safety/stabilization, development of additional coping skills, medication management and disposition/safety planning once medically stable. If they do not agree to voluntary treatment at that time they will meet criteria for 302 status based on severity of suicide attempt and ongoing modifiable risk factors, most likely for geriatric psychiatry given history of dementia. 05/24/22: Continues to regret that suicide attempt was not successful. Suspect that attempt was in the context of pain but given ongoing altered mental status from overdose and comorbid medical issues hopefully she will be better able to discuss precipitating stressors and factors contributing to current depression and suicidality as cognition improves. We will attempt to reach out to Dr. Broderick her outpatient psychiatrist as she gave me permission to do this. (1) Overdose of trazodone: (2) Depression: (3) Chronic pain: Plan -Continue 1-on-1 for risk of harm to self -Do not discharge or allow to leave AMA, would meet 302 criteria for warrant -Hold psych medications for now -Once medically cleared plan for psychiatric hospitalization (either 201 or 302 status). Interval History Identifying Information 76 yo woman who lives in [place] with her admitted medically following intentional ingestion. Psychiatry consulted for recommendations. Chief Complaint "I don't want to live". Subjective Subjective Patient was seen & assessed and interval progress reviewed. She remains very tired and has difficulty engaging with extended conversation. She is oriented to being in the hospital. She continues to endorse suicidal ideation when asked stating that she does not want to be alive and regrets surviving the attempt. She endorses pain "everywhere". She was seen shortly after anesthesiology came to visit her as she will be having surgery for debridement of the wound. Procedures Performed Operation Date: 05/24/22 10:45 <No data on this case meets the specified criteria> Physical Exam Psychiatric Orientation: alert, oriented to person and oriented to place; + not oriented to time Apperance: + disheveled Eye Contact: + fair eye contact Motor Behavior: no abnormal motor movements Speech: + abnormal rate/rhythm/volume of speech (Soft, slurred) Affect: + constricted affect Mood: + depressed mood Thought Process: + looseness of associations and + concrete thought process Thought Content: reality based without delusions Suicidal Thoughts: denies suicidal plan and denies suicidal intent; + reports suicidal thoughts (Attempt leading to admission and remains regretful about being alive) Homicidal Thoughts: denies homicidal thoughts Hallucinations: no auditory hallucinations and no visual hallucinations Cognition: recent memory grossly intact and remote memory grossly intact; + attention not intact and + language not intact Estimated Intelligence: consistent with education level Insight: + impaired insight Judgement: + impaired judgement Vital Signs (Past 24 Hours) Last Vital Signs Temp 36.6 C 05/24/22 11:45 Pulse 99 H 05/24/22 11:45 Resp 18 05/24/22 11:45 BP 114/52 L 05/24/22 11:45 Pulse Ox 97 05/24/22 11:45 O2 Del Method 05/24/22 11:45 O2 Flow Rate 2.0 05/24/22 11:45 Results & Data ([facility]) Laboratory Results Laboratory Results - last 24 hr 05/23/22 05/23/22 05/23/22 16:20 17:00 20:29 WBC RBC Hgb Hct MCV MCH MCHC RDW Std Deviation RDW Coeff of Zeynep Plt Count MPV Immature Gran % (Auto) Neut % (Auto) Lymph % (Auto) [place] % (Auto) Eos % (Auto) Baso % (Auto) Neut # (Auto) Lymph # (Auto) [place] # (Auto) Eos # (Auto) Baso # (Auto) Immature Gran # (Auto) Sodium 131 L Potassium 3.9 Chloride 100 Carbon Dioxide 25 Anion Gap 6 BUN 30 H Creatinine 1.35 H Est Cr Clr Drug Dosing 39.2 Est GFR ( Amer) 44.7 Est GFR (Non-Af Amer) 38.6 BUN/Creatinine Ratio 22.2 H Glucose 115 H POC Glucose 119 H 114 H Calcium 7.8 L Phosphorus Magnesium Total Bilirubin Direct Bilirubin AST ALT Alkaline Phosphatase Total Protein Albumin 05/24/22 05/24/22 05/24/22 05:42 05:42 07:35 WBC 9.19 RBC 3.29 L Hgb 8.6 L Hct 26.5 L MCV 80.5 MCH 26.1 MCHC 32.5 RDW Std Deviation 46.7 H RDW Coeff of Zeynep 15.9 H Plt Count 176 MPV 9.4 Immature Gran % (Auto) 7.3 Neut % (Auto) 78.1 Lymph % (Auto) 7.1 [place] % (Auto) 5.5 Eos % (Auto) 1.8 Baso % (Auto) 0.2 Neut # (Auto) 7.17 H Lymph # (Auto) 0.65 L [place] # (Auto) 0.51 Eos # (Auto) 0.17 Baso # (Auto) 0.02 Immature Gran # (Auto) 0.67 H Sodium 133 L Potassium 3.5 Chloride 103 Carbon Dioxide 24 Anion Gap 6 BUN 21 Creatinine 1.04 D Est Cr Clr Drug Dosing 50.6 Est GFR ( Amer) 61.3 Est GFR (Non-Af Amer) 52.9 BUN/Creatinine Ratio 20.2 H Glucose 111 H POC Glucose 114 H Calcium 7.6 L Phosphorus 3.1 Magnesium 2.0 Total Bilirubin 0.4 Direct Bilirubin 0.1 AST 24 ALT 31 Alkaline Phosphatase 61 Total Protein 4.4 L Albumin 2.2 L 05/24/22 11:59 WBC RBC Hgb Hct MCV MCH MCHC RDW Std Deviation RDW Coeff of Zeynep Plt Count MPV Immature Gran % (Auto) Neut % (Auto) Lymph % (Auto) [place] % (Auto) Eos % (Auto) Baso % (Auto) Neut # (Auto) Lymph # (Auto) [place] # (Auto) Eos # (Auto) Baso # (Auto) Immature Gran # (Auto) Sodium Potassium Chloride Carbon Dioxide Anion Gap BUN Creatinine Est Cr Clr Drug Dosing Est GFR ( Amer) Est GFR (Non-Af Amer) BUN/Creatinine Ratio Glucose POC Glucose 122 H Calcium Phosphorus Magnesium Total Bilirubin Direct Bilirubin AST ALT Alkaline Phosphatase Total Protein Albumin Current Inpatient Medications Current Inpatient Medications: Current Inpatient Medications Acetaminophen (Acetaminophen 325 Mg Tab) 650 mg PO Q4H PRN PRN Reason: Pain or Fever Stop: 06/23/22 01:06 Last Admin: 05/24/22 06:15 Dose: 650 mg Albuterol (Albuterol Hfa 8 Gm Inhaler) 2 puffs INH Q4H PRN PRN Reason: SHORT OF BREATH Stop: 06/21/22 08:46 Albuterol (Albuterol 0.083% Nebu Soln 3 Ml Vial) 2.5 mg INH ONCE PRN; Protocol PRN Reason: SOB/WHEEZING Stop: 06/21/22 08:24 Atropine Sulfate (Atropine Sulfate 0.1 Mg/Ml 10ml Syr) 0.5 mg IV Q1M PRN PRN Reason: PACU Use-HR<40 &/or Bradycardi Stop: 05/24/22 20:33 Dextrose (Dextrose 50% 50 Ml Syringe) 25 - 50 ml IV UD PRN; Protocol PRN Reason: Hypoglycemia Protocol Stop: 06/21/22 21:49 Last Admin: 05/22/22 21:58 Dose: 25 ml Donepezil HCl (Donepezil Hcl 10 Mg Tab) 10 mg PO HS SARAI Stop: 06/21/22 20:59 Last Admin: 05/23/22 21:24 Dose: 10 mg Famotidine (Famotidine 40 Mg Tablet) 40 mg PO BID SARAI Stop: 06/21/22 08:59 Last Admin: 05/24/22 08:29 Dose: 40 mg Fentanyl Citrate (Fentanyl Citrate 100 Mcg/2 Ml Vial) 25 mcg IV Q5M PRN PRN Reason: PACU Use Only-Pain Stop: 05/24/22 20:34 Fluticasone Propionate (Fluticasone Propionate Na Spr 16 Gm Btl) 2 sprays NA HS SARAI Stop: 06/21/22 20:59 Last Admin: 05/23/22 21:24 Dose: 2 sprays Fluticasone/Vilanterol (Fluticasone/Vilanterol 200/25mcg 14 Puffs/Inhaler) 1 puffs INH DAILY SARAI Stop: 06/21/22 08:59 Last Admin: 05/24/22 12:41 Dose: 1 puffs Folic Acid (Folic Acid 400 Mcg Tab) 800 mcg PO QAM SARAI Stop: 06/21/22 08:59 Last Admin: 05/24/22 08:29 Dose: 800 mcg Glucagon (Glucagon For Inj 1 Mg Vial) 1 mg SQ UD PRN; Protocol PRN Reason: Hypoglycemia Protocol Stop: 06/21/22 21:49 Glucose (Glucose 40% Gel 15 Gm Tube) 15 - 30 gm PO UD PRN; Protocol PRN Reason: Hypoglycemia Protocol Stop: 06/21/22 21:49 Glucose (Glucose 10 Tab/Tube) 4 - 8 tab PO UD PRN; Protocol PRN Reason: Hypoglycemia Treatment Stop: 06/21/22 21:49 Heparin Sodium (Porcine) (Heparin Sod 5,000 Unit/0.5 Ml Vial) 5,000 units SQ Q12 [facility] Stop: 06/22/22 20:59 Last Admin: 05/24/22 08:30 Dose: 5,000 units Sodium Chloride (Nss 1000ml) 1,000 mls @ 100 mls/hr IV .Q10H [facility] Stop: 06/21/22 07:59 Last Admin: 05/24/22 04:50 Dose: 100 mls/hr Daptomycin 550 mg/ Syringe 11 mls @ 5.5 mls/min IV Q24H [facility]; Protocol Stop: 06/06/22 08:29 Last Admin: 05/24/22 08:28 Dose: 5.5 mls/min Piperacillin Sod/Tazobactam (Sod 4.5 gm/ Dextrose) 120 mls @ 30 mls/hr IV Q8H [facility]; Protocol Stop: 06/06/22 09:59 Last Admin: 05/24/22 10:29 Dose: 30 mls/hr Insulin Aspart (Insulin Aspart Per Unit) 0 units SC ACHS [facility] Stop: 06/21/22 08:24 Last Admin: 05/24/22 12:33 Dose: Not Given Levothyroxine Sodium (Levothyroxine Sodium 100 Mcg Tablet) 100 mcg PO DAILYBB [facility] Stop: 06/21/22 08:59 Last Admin: 05/24/22 06:16 Dose: 100 mcg Magnesium Oxide (Magnesium Oxide 400 Mg Tab) 400 mg PO Q2D@0900 [facility] Stop: 06/21/22 08:59 Last Admin: 05/24/22 08:28 Dose: 400 mg Memantine (Memantine Hcl 10 Mg Tab) 10 mg PO BID [facility] Stop: 06/22/22 08:59 Last Admin: 05/24/22 08:31 Dose: 10 mg Miscellaneous (Carbohydrates For Hypoglycemia ) 15 - 30 gm PO UD PRN PRN Reason: Hypoglycemia Protocol Stop: 06/21/22 21:49 Montelukast Sodium (Montelukast Sodium 10 Mg Tablet) 10 mg PO HS [facility] Stop: 06/21/22 20:59 Last Admin: 05/23/22 21:24 Dose: 10 mg Ondansetron HCl (Ondansetron Inj 2 Mg/Ml 2 Ml Vial) 4 mg IV ONCE PRN PRN Reason: PACU Use Only-Nausea/Vomiting Stop: 05/24/22 20:34 Oxycodone HCl (Oxycodone Hcl Soln 5 Mg/5 Ml Udc) 2.5 mg PO Q6H PRN PRN Reason: Pain Stop: 06/07/22 08:27 Pantoprazole Sodium (Pantoprazole 40 Mg Tab) 40 mg PO QAM [facility] Stop: 06/22/22 08:59 Last Admin: 05/24/22 08:28 Dose: 40 mg
[2022-05-24] MEDS ORDERED: LIDOCAINE 1% LOCAL 20 ML VIAL ONE (13:12)
--- NOTE | 2022-05-24 13:28 | Post Operative Brief Note ---
Immediate Post Op Note v1 Date of Surgery May 24, 2022 Pre & Post Diagnosis Operation Date: 05/24/22 10:45 Pre-Op Diagnosis: Abscess of right buttock Post-Op Diagnosis: Abscess of right buttock I identified the patient and participated in the time-out.: Yes Procedure Operation Date: 05/24/22 10:45 Actual Procedures p Debridement Right Buttock Abscess(Right) - Sarah Amador MD Surgeon Sarah Amador MD Direct Support Staff surgical dental assistant Estimated Blood Loss 5 Findings Consistent with Post-Op Diagnosis right buttock abscess, Fluids 50ml Specimens wound culture Drains [place] Catheter and Other (packing the wound x2) Anesthesia Type Local Complications none
--- NOTE | 2022-05-24 14:40 | Hospitalist Progress Note ---
Date of Service May 24, 2022 Assessment & Plan (1) Overdose of trazodone: Plan: patient expressed intentional overdose of trazodone found to be somnolent but arousable found to have WBC 34, lactic acidosis 7, Cr 2.35 (baseline 0.81), bicarb 19 Received IVF Poison control contacted recommended to monitor EKG for prolong QTC Psych on board Continue 1 to 1 sitter Pt cannot leave AMA Continue to hold psych medications for now Once medically cleared plan for psychiatric hospitalization (2) Sepsis: Plan: Bacteremia WBC on admission 34K, now trending down to normal Elevated procalcitonin Blood cx positive for staph aureus, pseudomonas and alpha strep not strep pneumonia/ enterococcus Continue IV abx daptomycin and Zosyn Repeat blood cx pending Consider ID to guide on antibiotic duration Buttock abscess S/P Debridement Right Buttock Abscess(Right) performed today by Dr. Amador Continue current abx therapy Culture from the I&D pending (3) Hyponatremia: Plan: likely due to decrease po intake and diarrhea Na on admission 121 Nephrology on board Na improved to 133 Clinically improves (4) Lactic acidosis: Plan: likely related to acute overdose received IVF resolved (5) Leukocytosis: Plan: likely in the setting of acute overdose vs sepsis Continue IVF abx WBC normalized (6) Chronic pain: Plan: Continue to holding pain medications given overdose Will resume pain med and titrate when able Continue Tylenol prn (7) Diabetes mellitus, type II: Plan: Most recent hab1c 6.9 Continue to hold metformin pharmacy on board for glycemic management Continue monitor BS (8) Depression: Plan: Suicidal ideation leading to acute overdose case discussed with Psych Continue to hold psych medication Continue observation 1:1 for patient safety Cannot leave AMA Might need inpatient geriatric psych (9) Hypothyroidism: Plan: - continue levothyroxine (10) Anemia: Plan: Hgb 9.8 on presentation, baseline around 12 Hgb 8.7 today no signs of active bleeding Continue monitor H/H Plan DVT ppx: on Heparin subq Full Code Disposition plan to transfer out of the ICU Admission and Anticipated Discharge Date Admission Date: May 22, 2022 Subjective Pt was seen and examined for follow up for trazodone overdose, lethargy and confusion Lying in bed with no acute distress with 1 to 1 sitter Pt is confused, calm and follow simple commands She started to be more awake as per staff Denies any chest pain, palpitation, dizziness and SOB Review of Systems Review of Systems: All systems reviewed & are unremarkable except as noted in Subjective Physical Exam Physical Exam: General- Confused, no acute distress Head- atraumatic Eyes- PERRL, EOMI, ENT- oropharynx clear Neck- supple, no JVD Lungs- clear to auscultation Heart- regular rhythm; no murmur Abdomen- normal bowel sounds, soft, nontender Extremities- no calf tenderness Neuro- awake, confused; PERRL, EOMI; no facial palsy; no dysarthria Skin- warm & dry Results & Data Results & Data ([facility]) Vital Signs (Past 12 Hours) Vital Signs Temp Pulse Pulse Resp BP BP Pulse Ox 05/24/22 13:55 91 H 18 133/59 L 93 05/24/22 13:45 93 H 16 119/94 94 05/24/22 13:40 36.6 C 95 H 15 116/55 L 92 05/24/22 13:35 36.7 C 95 H 14 104/53 L 94 05/24/22 13:50 90 15 117/77 92 05/24/22 11:45 36.6 C 99 H 18 114/52 L 97 05/24/22 11:00 82 15 99 05/24/22 11:00 114/52 L 05/24/22 10:00 90 23 96 05/24/22 10:00 113/87 05/24/22 09:01 95 H 22 99 05/24/22 09:01 133/63 05/24/22 09:00 97 H 17 98 05/24/22 08:03 89 14 97 05/24/22 08:03 100/42 L 05/24/22 08:01 81 16 97 05/24/22 08:00 81 12 97 05/24/22 07:00 93 H 15 98 05/24/22 07:00 99/45 L 05/24/22 06:55 92/41 L 05/24/22 06:55 97 H 20 97 05/24/22 08:00 05/24/22 08:00 93 H 05/24/22 11:03 05/24/22 10:38 36.6 C 85 18 113/87 98 05/24/22 06:00 106 H 20 138/68 97 05/24/22 05:00 92 H 12 126/56 L 98 05/24/22 04:00 94 H 20 131/73 98 05/24/22 03:00 87 28 H 105/53 L 98 05/24/22 03:00 05/24/22 04:00 36.8 C 94 H 21 131/73 98 Pulse Ox O2 Del Method O2 Del Method O2 Flow Rate O2 Flow Rate 05/24/22 13:55 Room Air 05/24/22 13:45 Room Air 05/24/22 13:40 Room Air 05/24/22 13:35 Room Air 05/24/22 13:50 Room Air 05/24/22 11:45 Nasal Cannula 2.0 05/24/22 11:00 05/24/22 11:00 05/24/22 10:00 05/24/22 10:00 05/24/22 09:01 05/24/22 09:01 05/24/22 09:00 05/24/22 08:03 05/24/22 08:03 05/24/22 08:01 05/24/22 08:00 05/24/22 07:00 05/24/22 07:00 05/24/22 06:55 05/24/22 06:55 05/24/22 08:00 Room Air 05/24/22 08:00 05/24/22 11:03 Room Air 05/24/22 10:38 Nasal Cannula 2 05/24/22 06:00 Nasal Cannula 2 05/24/22 05:00 2 05/24/22 04:00 Nasal Cannula 2 05/24/22 03:00 2 05/24/22 03:00 97 Nasal Cannula 2 05/24/22 04:00 Room Air
[2022-05-24] MEDS: oxyCODONE HCL SOLN 5 MG/5 ML UDC PO PRN (15:13)
--- NOTE | 2022-05-24 15:40 | Anesthesiology Progress Note ---
Date of Service May 24, 2022 Anesthesia Post Procedure Vital Signs Vital Signs: Temp Pulse Pulse Resp BP BP Pulse Ox 05/24/22 15:02 36.8 C 94 H 20 127/74 93 05/24/22 13:55 91 H 18 133/59 L 93 05/24/22 13:45 93 H 16 119/94 94 05/24/22 13:40 36.6 C 95 H 15 116/55 L 92 05/24/22 13:35 36.7 C 95 H 14 104/53 L 94 05/24/22 13:50 90 15 117/77 92 05/24/22 11:45 36.6 C 99 H 18 114/52 L 97 05/24/22 11:00 82 15 99 05/24/22 11:00 114/52 L 05/24/22 10:00 90 23 96 05/24/22 10:00 113/87 05/24/22 09:01 95 H 22 99 05/24/22 09:01 133/63 05/24/22 09:00 97 H 17 98 05/24/22 08:03 89 14 97 05/24/22 08:03 100/42 L 05/24/22 08:01 81 16 97 05/24/22 08:00 81 12 97 05/24/22 07:00 93 H 15 98 05/24/22 07:00 99/45 L 05/24/22 06:55 92/41 L 05/24/22 06:55 97 H 20 97 05/24/22 08:00 05/24/22 08:00 93 H 05/24/22 11:03 05/24/22 10:38 36.6 C 85 18 113/87 98 05/24/22 06:00 106 H 20 138/68 97 05/24/22 05:00 92 H 12 126/56 L 98 05/24/22 04:00 94 H 20 131/73 98 05/24/22 03:00 87 28 H 105/53 L 98 05/24/22 03:00 05/24/22 04:00 36.8 C 94 H 21 131/73 98 05/24/22 02:00 92 H 22 132/50 L 99 05/24/22 01:00 91 H 15 114/78 99 05/24/22 00:00 36.6 C 88 18 132/71 100 05/23/22 23:00 82 15 103/66 99 05/24/22 00:00 89 05/23/22 18:45 88 05/23/22 20:00 05/23/22 22:03 88 20 95 05/23/22 22:03 121/63 05/23/22 22:00 90 16 93 05/23/22 21:00 84 25 H 92 05/23/22 21:00 105/63 05/23/22 20:00 88 18 91 05/23/22 20:00 108/58 L 05/23/22 19:30 121/59 L 05/23/22 19:30 36.5 C 87 17 92 05/23/22 19:15 92 H 13 92 05/23/22 19:01 92 H 19 93 05/23/22 19:01 113/60 05/23/22 19:00 90 25 H 92 05/23/22 18:45 89 17 94 05/23/22 18:30 91 H 21 94 05/23/22 18:30 90/75 L 05/23/22 18:15 88 19 93 05/23/22 18:00 87 15 93 05/23/22 18:00 107/58 L 05/23/22 17:45 86 14 93 05/23/22 17:30 83 18 95 05/23/22 17:30 102/52 L 05/23/22 17:15 87 14 92 05/23/22 17:01 84 14 93 05/23/22 17:01 82/65 L 05/23/22 17:00 85 14 91 05/23/22 16:45 89 18 92 05/23/22 16:30 87 15 94 05/23/22 16:30 36.9 C 91/61 L 05/23/22 16:15 85 14 92 05/23/22 16:00 84 18 94 05/23/22 16:00 113/53 L 05/23/22 15:45 83 14 95 05/23/22 16:00 86 Pulse Ox O2 Del Method O2 Del Method O2 Flow Rate O2 Flow Rate 05/24/22 15:02 Room Air 05/24/22 13:55 Room Air 05/24/22 13:45 Room Air 05/24/22 13:40 Room Air 05/24/22 13:35 Room Air 05/24/22 13:50 Room Air 05/24/22 11:45 Nasal Cannula 2.0 05/24/22 11:00 05/24/22 11:00 05/24/22 10:00 05/24/22 10:00 05/24/22 09:01 05/24/22 09:01 05/24/22 09:00 05/24/22 08:03 05/24/22 08:03 05/24/22 08:01 05/24/22 08:00 05/24/22 07:00 05/24/22 07:00 05/24/22 06:55 05/24/22 06:55 05/24/22 08:00 Room Air 05/24/22 08:00 05/24/22 11:03 Room Air 05/24/22 10:38 Nasal Cannula 2 05/24/22 06:00 Nasal Cannula 2 05/24/22 05:00 2 05/24/22 04:00 Nasal Cannula 2 05/24/22 03:00 2 05/24/22 03:00 97 Nasal Cannula 2 05/24/22 04:00 Room Air 05/24/22 02:00 Nasal Cannula 2 05/24/22 01:00 Nasal Cannula 2 05/24/22 00:00 Nasal Cannula 2 05/23/22 23:00 Room Air 05/24/22 00:00 05/23/22 18:45 05/23/22 20:00 Nasal Cannula 2 05/23/22 22:03 05/23/22 22:03 05/23/22 22:00 05/23/22 21:00 05/23/22 21:00 05/23/22 20:00 05/23/22 20:00 05/23/22 19:30 05/23/22 19:30 Room Air 05/23/22 19:15 05/23/22 19:01 05/23/22 19:01 05/23/22 19:00 05/23/22 18:45 05/23/22 18:30 05/23/22 18:30 05/23/22 18:15 05/23/22 18:00 2 05/23/22 18:00 05/23/22 17:45 05/23/22 17:30 05/23/22 17:30 05/23/22 17:15 05/23/22 17:01 05/23/22 17:01 05/23/22 17:00 05/23/22 16:45 05/23/22 16:30 05/23/22 16:30 05/23/22 16:15 05/23/22 16:00 05/23/22 16:00 05/23/22 15:45 05/23/22 16:00 Pain Intensity Right Hip: Pain Intensity: 0 Transfer of Care Handoff Completed per policy Notes Mental Status: alert / awake / arousable Patient Amnestic to Procedure: Yes Nausea / Vomiting: adequately controlled Pain: adequately controlled Airway Patency, RR, SpO2: stable & adequate BP & HR: stable & adequate Hydration State: stable & adequate Anesthetic Complications: no major complications apparent
--- NOTE | 2022-05-24 18:19 | Operative Report (OR) ---
DATE OF PROCEDURE: 05/24/2022 PREOPERATIVE DIAGNOSIS: Right buttock abscess. POSTOPERATIVE DIAGNOSIS: Right buttock abscess. OPERATION: Incision and drainage of right buttock abscess x2. SURGEON: Sarah Amador MD. ANESTHESIA: Conscious sedation plus local. ESTIMATED BLOOD LOSS: About 5 mL. FINDINGS: Two abscesses in the right buttock. COMPLICATIONS: None. INDICATIONS FOR PROCEDURE: This is a 76-year-old female who was admitted to the ICU for unresponsive ness and the patient had a CT scan diagnosis of right buttock abscess. I recommended to do the incis ion and drainage of right buttock abscess. I did talk to the patient and the patient's on phone about the benefit, risk, alternate procedure. I indicated the risks may include, but not almanza ited to such as bleeding, infection, recurrence, sepsis and they understand. They agreed to proceed. The gave consent on the phone. I answered all questions. DETAILS OF PROCEDURE: After we identified the patient and verified the procedure, we brought the pat ient to the OR, put the patient in the left-sided decubitus position. The patient received SCD on bi lateral legs to prevent DVT. Also, patient received IV 3.375 grams of Zosyn for prophylactic antibio tic and the patient received conscious sedation by the anesthesiology. The right buttock area was pr epped and draped in routine sterile fashion. I reexamined the patient. There are 2 skin openings on the right buttock area about 2 cm apart. There is some pus draining from the 2 openings in the skin , each opening about 1 x 1 cm. At this moment, then, I injected the local anesthesia by using 1% lido linsey mixed with 0.5% Marcaine around these 2 skin opening areas. Then I made about a 2 cm incision on the first skin opening area. There was some pus that came out, we did send a wound culture and then we made another incision, about 2 cm incision on the second absc ess on the right buttock and there was some pus that came out, we did send a wound culture again and once we cleared up all the wound cavity, the wound was deep to the muscle layer, and these 2 openings connected to each other beneath the skin and once we cleared up all the pus coming out, we did use s aravind to wash the abscess cavity. Then, we did packing with half-inch Kerlix. Hemostasis was obtain ed. Then, we put the dressing on. The patient tolerated the procedure well. All instrument, needle and sponge counts were correct x2 a t the end of the case. The patient was transferred to recovery room in stable condition and after th e procedure, I did talk to the patient about the OR finding and the procedure we did, the patient und erstands and I answered all questions. Job ID: [id number]
[2022-05-24] MEDS: MONTELUKAST SODIUM 10 MG TABLET PO SCH (21:35)
[2022-05-24] MEDS: FLUTICASONE PROPIONATE NA SPR 16 GM BTL SCH (21:35)
[2022-05-24] MEDS: DONEPEZIL HCL 10 MG TAB PO SCH (21:36)
[2022-05-25] MEDS: PIPERACILLIN/TAZOBACTAM 4.5 GM in DEXTROSE 5% 100 ML IV SCH ×3 (01:14→18:45)
[2022-05-25] MEDS: ACETAMINOPHEN 325 MG TAB PO PRN ×3 (01:14→16:58)
[2022-05-25] MEDS: SODIUM CHLORIDE 0.9% 1000ML 1,000 ML IV SCH ×3 (04:15→23:17)
[2022-05-25] MEDS: LEVOTHYROXINE SODIUM 100 MCG TABLET PO SCH (05:49)
[2022-05-25 06:09] LABS: Hematocrit (blood only) 27.8 % (34.1-44.9); Hemoglobin 8.7 g/dl (12.0-16.0); Mean Corpuscular Hemoglobin 25.6 pg (25.0-34.0); Mean Corpuscular Hgb Conc 31.3 g/dL (32.0-36.0); Mean Corpuscular Volume 81.8 fL (80.0-100.0); Mean Platelet Volume 9.9 fL (9.4-12.3); Platelet Count 190 K/uL (130-400); RDW Coefficient of Variation 16.2 % (11.5-14.5); RDW Standard Deviation 48.2 fL (36.4-46.3); White Blood Count 11.52 K/ul (4.8-10.8)
[2022-05-25 06:31] LABS: Albumin Level 2.3 gm/dl (3.4-5.0); BUN Creatinine Ratio 16.3 (10-20); Bilirubin Direct 0.2 mg/dl (0-0.2); Bilirubin,Total 0.6 mg/dl (0.2-1.0); Calcium 7.8 mg/dl (8.5-10.1); Creatinine Clr Calc Pharmacy 68.6 ml/min; Est GFR (African American) 84.2 ml/min; Est GFR (Non-African American) 72.6 ml/min; Magnesium 1.7 mg/dl (1.7-2.4); Phosphorus 3.4 mg/dl (2.5-4.9); Potassium 3.5 mmol/L (3.5-5.1); Total Protein 4.7 gm/dl (6.0-8.3)
[2022-05-25 06:37] LABS: Basophils # (auto) 0.05 K/uL (0-0.2); Basophils % (auto) 0.4 %; Dohle Bodies 1+; Echinocytes 1+; Eosinophils # (auto) 0.11 K/uL (0-0.50); Immature Granulocytes # (auto) 0.95 K/uL (0.00-0.02); Immature Granulocytes % (auto) 8.2 %; Lymphocytes # (auto) 0.97 K/uL (1.2-3.4); Lymphocytes % (auto) 8.4 %; Monocytes % (auto) 6.9 %; Neutrophils # (auto) 8.64 K/uL (1.4-6.5); Neutrophils % (auto) 75.1 %; Toxic Granulation 1+
[2022-05-25] MEDS: INSULIN ASPART PER UNIT SC SCH ×4 (08:23→21:34)
[2022-05-25] MEDS: HEPARIN SOD 5,000 UNIT/0.5 ML VIAL SQ SCH ×2 (08:25→21:34)
[2022-05-25] MEDS: DAPTOmycin 550 MG in SYRINGE 0 ML IV SCH (08:25)
[2022-05-25] MEDS: MEMANTINE HCL 10 MG TAB PO SCH ×2 (08:25→21:33)
[2022-05-25] MEDS: FAMOTIDINE 40 MG TABLET PO SCH ×2 (08:25→21:33)
[2022-05-25] MEDS: FOLIC ACID 400 MCG TAB PO SCH (08:26)
[2022-05-25] MEDS: PANTOprazole 40 MG TAB PO SCH (08:26)
[2022-05-25] MEDS: MAGNESIUM OXIDE 400 MG TAB PO SCH (08:26)
[2022-05-25] MEDS: FLUTICASONE/VILANTEROL 200/25MCG 14 PUFFS/INHALER INH SCH (08:27)
--- NOTE | 2022-05-25 12:41 | Psychiatric Progress Note ---
Date of Service May 25, 2022 Impression / Recommendations Impression This is a 76 yo admitted medically following an intentional overdose suicide attempt. Diagnostically consistent with MDD in the context of recent stressors including worsening pain and recent medical issues and possible contribution from vascular dementia leading to impulsivity-based on current cognitive status difficult to determine what is delirium from overdose and what component may be from listed history of dementia. Acute risk of self-harm remains elevated and high given suicide attempt requiring medical admission, major depressive symptoms, impulsivity, hopelessness, ongoing regret at being alive, limited insight. Given elevated risk of harm to self they will likely meet criteria for inpatient psychiatric care for diagnostic clarification, safety/stabilization, development of additional coping skills, medication management and disposition/safety planning once medically stable. If they do not agree to voluntary treatment at that time they will meet criteria for 302 status based on severity of suicide attempt and ongoing modifiable risk factors, most likely for geriatric psychiatry given history of dementia. 05/25/22: She was able to provide a bit more history today sounds like suicide attempt was quite impulsive in the setting of pain. Today she is reporting improved mood but difficult to determine how much of this may be from waxing and waning delirium. She did have a surgical debridement yesterday and potentially this is contributing slightly to improved mood though she endorses ongoing pain but appears slightly more comfortable and alert. Given severity of attempt and ongoing concern for waxing and waning cognitive status will continue with suicide precautions until cognitive status improves further and to ensure no recurrence of suicidal ideation. (1) Overdose of trazodone: (2) Depression: (3) Chronic pain: Plan -Continue 1-on-1 for risk of harm to self -Do not discharge or allow to leave AMA, would meet 302 criteria for warrant -Hold psych medications for now -Once medically cleared plan for psychiatric hospitalization (either 201 or 302 status). Interval History Identifying Information 76 yo woman who lives in [place] with her admitted medically following intentional ingestion. Psychiatry consulted for recommendations. Chief Complaint "I was going to sleep and I was in pain and I didn't want to live anymore". Subjective Subjective Patient was seen & assessed and interval progress reviewed. She is sitting upright in bed about to begin her lunch. Oriented to being in the hospital. S he states ongoing pain particularly on her side. Is better able to provide some details regarding her admission again reiterates that she had a fall on Sunday and by bedtime on Sunday she was still in a lot of pain and was about to take her bedtime medication of trazodone and decided to take an excessive amount as a suicide attempt because she decided life was not worth living anymore due to the pain. May she states her mood is "better" and denies any suicidal ideation today but notes that for her historically suicidal ideation "comes and goes" and tends to resolve quickly after it has occurred. She feels that pain was the main factor leading to her suicide attempt and that if this improved "that would definitely help" her wanting to live. She notes reasons for living today of her dog and "grand dogs". Spoke briefly with her son Scarlett and her sister who came to visit. Nitin provided his phone number so psychiatric liaison can keep him updated and he will relay information to the rest of the family as needed. Reviewed potential option for psychiatric hospitalization versus focus on improving medical conditions that seem to be the main driving factors for her suicide attempt but that this will continue to need to be reevaluated as she becomes more medically stable. Procedures Performed Operation Date: 05/24/22 10:45 Actual Procedures p Debridement Right Buttock Abscess(Right) - Sarah Amador MD Physical Exam Psychiatric Orientation: alert, oriented to person and oriented to place; + not oriented to time Apperance: + disheveled Eye Contact: + fair eye contact Motor Behavior: no abnormal motor movements Speech: normal rate/rhythm/volume of speech (Soft, brief) Affect: + constricted affect Mood: no depressed mood and no anxious mood Thought Process: + looseness of associations and + concrete thought process Thought Content: reality based without delusions Suicidal Thoughts: denies suicidal thoughts (Attempt leading to admission and was regretful about being alive ) Homicidal Thoughts: denies homicidal thoughts Hallucinations: no auditory hallucinations and no visual hallucinations Cognition: recent memory grossly intact, remote memory grossly intact and language grossly intact; + attention not intact Estimated Intelligence: consistent with education level Insight: + impaired insight Judgement: + impaired judgement Vital Signs (Past 24 Hours) Last Vital Signs Temp 36.9 C 05/25/22 08:00 Pulse 97 H 05/25/22 11:00 Resp 16 05/25/22 11:00 BP 121/55 L 05/25/22 07:24 Pulse Ox 92 05/25/22 10:00 O2 Del Method 05/25/22 03:39 O2 Flow Rate 2 05/25/22 03:00 Results & Data ([facility] [[email or web address] Laboratory Results Laboratory Results - last 24 hr 05/24/22 05/24/22 05/25/22 16:03 19:59 05:33 WBC 11.52 H RBC 3.40 L Hgb 8.7 L Hct 27.8 L MCV 81.8 MCH 25.6 MCHC 31.3 L RDW Std Deviation 48.2 H RDW Coeff of Zeynep 16.2 H Plt Count 190 MPV 9.9 Immature Gran % (Auto) 8.2 Neut % (Auto) 75.1 Lymph % (Auto) 8.4 York % (Auto) 6.9 Eos % (Auto) 1.0 Baso % (Auto) 0.4 Neut # (Auto) 8.64 H Lymph # (Auto) 0.97 L York # (Auto) 0.80 Eos # (Auto) 0.11 Baso # (Auto) 0.05 Immature Gran # (Auto) 0.95 H Toxic Granulation 1+ Dohle Bodies 1+ Echinocytes 1+ Sodium Potassium Chloride Carbon Dioxide Anion Gap BUN Creatinine Est Cr Clr Drug Dosing Est GFR ( Amer) Est GFR (Non-Af Amer) BUN/Creatinine Ratio Glucose POC Glucose 108 H 128 H Calcium Phosphorus Magnesium Total Bilirubin Direct Bilirubin AST ALT Alkaline Phosphatase Total Protein Albumin 05/25/22 05/25/22 05/25/22 05:33 07:30 11:01 WBC RBC Hgb Hct MCV MCH MCHC RDW Std Deviation RDW Coeff of Zeynep Plt Count MPV Immature Gran % (Auto) Neut % (Auto) Lymph % (Auto) York % (Auto) Eos % (Auto) Baso % (Auto) Neut # (Auto) Lymph # (Auto) York # (Auto) Eos # (Auto) Baso # (Auto) Immature Gran # (Auto) Toxic Granulation Dohle Bodies Echinocytes Sodium 137 Potassium 3.5 Chloride 106 Carbon Dioxide 22 Anion Gap 9 BUN 13 Creatinine 0.80 Est Cr Clr Drug Dosing 68.6 Est GFR ( Amer) 84.2 Est GFR (Non-Af Amer) 72.6 BUN/Creatinine Ratio 16.3 Glucose 122 H POC Glucose 119 H 135 H Calcium 7.8 L Phosphorus 3.4 Magnesium 1.7 Total Bilirubin 0.6 Direct Bilirubin 0.2 AST 22 ALT 30 Alkaline Phosphatase 66 Total Protein 4.7 L Albumin 2.3 L Current Inpatient Medications Current Inpatient Medications: Current Inpatient Medications Acetaminophen (Acetaminophen 325 Mg Tab) 650 mg PO Q4H PRN PRN Reason: Pain or Fever Stop: 06/23/22 01:06 Last Admin: 05/25/22 10:33 Dose: 650 mg Albuterol (Albuterol Hfa 8 Gm Inhaler) 2 puffs INH Q4H PRN PRN Reason: SHORT OF BREATH Stop: 06/21/22 08:46 Albuterol (Albuterol 0.083% Nebu Soln 3 Ml Vial) 2.5 mg INH ONCE PRN; Protocol PRN Reason: SOB/WHEEZING Stop: 06/21/22 08:24 Dextrose (Dextrose 50% 50 Ml Syringe) 25 - 50 ml IV UD PRN; Protocol PRN Reason: Hypoglycemia Protocol Stop: 06/21/22 21:49 Last Admin: 05/22/22 21:58 Dose: 25 ml Donepezil HCl (Donepezil Hcl 10 Mg Tab) 10 mg PO HS SARAI Stop: 06/21/22 20:59 Last Admin: 05/24/22 21:36 Dose: 10 mg Famotidine (Famotidine 40 Mg Tablet) 40 mg PO BID SARAI Stop: 06/21/22 08:59 Last Admin: 05/25/22 08:25 Dose: 40 mg Fluticasone Propionate (Fluticasone Propionate Na Spr 16 Gm Btl) 2 sprays NA HS SARAI Stop: 06/21/22 20:59 Last Admin: 05/24/22 21:35 Dose: 2 sprays Fluticasone/Vilanterol (Fluticasone/Vilanterol 200/25mcg 14 Puffs/Inhaler) 1 puffs INH DAILY SARAI Stop: 06/21/22 08:59 Last Admin: 05/25/22 08:27 Dose: 1 puffs Folic Acid (Folic Acid 400 Mcg Tab) 800 mcg PO QAM SARAI Stop: 06/21/22 08:59 Last Admin: 05/25/22 08:26 Dose: 800 mcg Glucagon (Glucagon For Inj 1 Mg Vial) 1 mg SQ UD PRN; Protocol PRN Reason: Hypoglycemia Protocol Stop: 06/21/22 21:49 Glucose (Glucose 40% Gel 15 Gm Tube) 15 - 30 gm PO UD PRN; Protocol PRN Reason: Hypoglycemia Protocol Stop: 06/21/22 21:49 Glucose (Glucose 10 Tab/Tube) 4 - 8 tab PO UD PRN; Protocol PRN Reason: Hypoglycemia Treatment Stop: 06/21/22 21:49 Heparin Sodium (Porcine) (Heparin Sod 5,000 Unit/0.5 Ml Vial) 5,000 units SQ Q12 SARAI Stop: 06/22/22 20:59 Last Admin: 05/25/22 08:25 Dose: 5,000 units Sodium Chloride (Nss 1000ml) 1,000 mls @ 100 mls/hr IV .Q10H [facility] Stop: 06/21/22 07:59 Last Admin: 05/25/22 04:15 Dose: 100 mls/hr Daptomycin 550 mg/ Syringe 11 mls @ 5.5 mls/min IV Q24H [facility]; Protocol Stop: 06/06/22 08:29 Last Admin: 05/25/22 08:25 Dose: 5.5 mls/min Piperacillin Sod/Tazobactam (Sod 4.5 gm/ Dextrose) 120 mls @ 30 mls/hr IV Q8H [facility]; Protocol Stop: 06/06/22 09:59 Last Admin: 05/25/22 11:30 Dose: 30 mls/hr Insulin Aspart (Insulin Aspart Per Unit) 0 units SC ACHS [facility] Stop: 06/21/22 08:24 Last Admin: 05/25/22 08:23 Dose: Not Given Levothyroxine Sodium (Levothyroxine Sodium 100 Mcg Tablet) 100 mcg PO DAILYBB [facility] Stop: 06/21/22 08:59 Last Admin: 05/25/22 05:49 Dose: 100 mcg Magnesium Oxide (Magnesium Oxide 400 Mg Tab) 400 mg PO Q2D@0900 SARAI Stop: 06/21/22 08:59 Last Admin: 05/25/22 08:26 Dose: 400 mg Memantine (Memantine Hcl 10 Mg Tab) 10 mg PO BID [facility] Stop: 06/22/22 08:59 Last Admin: 05/25/22 08:25 Dose: 10 mg Miscellaneous (Carbohydrates For Hypoglycemia ) 15 - 30 gm PO UD PRN PRN Reason: Hypoglycemia Protocol Stop: 06/21/22 21:49 Montelukast Sodium (Montelukast Sodium 10 Mg Tablet) 10 mg PO HS [facility] Stop: 06/21/22 20:59 Last Admin: 05/24/22 21:35 Dose: 10 mg Oxycodone HCl (Oxycodone Hcl Soln 5 Mg/5 Ml Udc) 2.5 mg PO Q6H PRN PRN Reason: Pain Stop: 06/07/22 08:27 Last Admin: 05/24/22 15:13 Dose: 2.5 mg Pantoprazole Sodium (Pantoprazole 40 Mg Tab) [facility] Stop: 06/22/22 08:59 Last Admin: 05/25/22 08:26 Dose: 40 mg
--- NOTE | 2022-05-25 13:41 | Surgery Progress Note ---
Date of Service May 25, 2022 Assessment & Plan (1) Abscess of buttock, right: Plan: pt is 76 year-old female who was admitted to ICU for Unresponsive episode, metabolic acidosis, hyponatremia IMP : abscess of right buttock, plan, I recommend to do I/D right buttock abscess, D/W benefits, risks and alternatives of the surgery, the risks- infection, sepsis, bleeding, recurrence, pt and her on the phone understood, they agree with surgery, pt's gave consent on phone, I answered all questions, 05/25/2022 1:[address] Amador F/U S/P Debridement Right Buttock Abscess, POD 1, wound culture, -Gram Stain Final 05/24/22 Gram Stain Result Moderate Gram Positive Cocci Many WBCs Seen Aero/Jennifer Cult Preliminary 05/25/22-1058 Organism 1 Staphylococcus species Quantity Moderate Sens Sensitivities to Follow doing fine, consult wound care nurse for packing change once every other day, pt may need wound VAC, continue iv antibiotic, will F/U Admission and Anticipated Discharge Date Admission Date: May 22, 2022 Supervising Physician Co-Signing Physician Notes Patient seen and examined. EMR reviewed. Discussed on multidisciplinary rounds and with family practice resident. Agree with assessment plan as noted. Patient is clinically improved today. Her sensorium is much clearer. She is complaining of some pain in her backside and there now appears to be areas of purulence/microabscess formation. General surgery consult obtained with plans to take the patient to the OR today for I&D. We will continue current antibiotics pending deep cultures. Her sodium and acute kidney injury have resolved. Will use low-dose oxycodone for acute pain control. Chronic pain management may be an issue for her in the future. We will try and get her mobilized as much as possible given her buttock issues. Try and keep her off that area is much as possible. She will require physical therapy and Occupational Therapy evaluations at some point. Continue one-to-one given suicidal ideation and reported suicide attempt. Appreciate behavioral health assistance. She is not yet medically cleared. I think the patient is stable to transfer out of the intensive care unit. Will sign off at this point time unless the patient requires ICU level care postoperatively. Subjective Pt was seen and examined for follow up for trazodone overdose, lethargy and confusion Lying in bed with no acute distress with 1 to 1 sitter Pt is confused, calm and follow simple commands She started to be more awake as per staff Denies any chest pain, palpitation, dizziness and SOB 05/25/2022 1:38Pm Dr. Amador F/U S/P Debridement Right Buttock Abscess, POD 1 pt is stable, no fever, Physical Exam Constitutional: WD/WN, vitals as above Eyes: PERRL, conjunctivae normal, anicteric sclerae Neck: trachea midline, no thyromegaly Respiratory: normal respiratory effort, lungs clear to auscultation Cardiovascular: RRR, no murmur, no edema Skin: the wound is dry, packing intact, Neurologic: patellar DTR's 2+ bilat, sensation intact Psychiatric: Orientation: alert Results & Data ([facility]) Vital Signs (Past 12 Hours) Vital Signs Temp Pulse Pulse Resp BP BP Pulse Ox 05/25/22 11:00 36.9 C 99 H 18 132/63 99 05/25/22 08:00 36.9 C 05/25/22 11:00 97 H 16 05/25/22 10:00 93 H 12 92 05/25/22 09:00 94 H 18 05/25/22 08:00 102 H 05/25/22 07:24 121/55 L 05/25/22 07:24 92 H 12 05/25/22 07:00 90 14 94 05/25/22 08:00 93 H 05/25/22 03:00 05/25/22 03:39 37 C 101 H 18 115/60 97 Pulse Ox O2 Del Method O2 Del Method O2 Flow Rate O2 Flow Rate 05/25/22 11:00 Nasal Cannula 2 05/25/22 08:00 05/25/22 11:00 05/25/22 10:00 05/25/22 09:00 05/25/22 08:00 05/25/22 07:24 05/25/22 07:24 05/25/22 07:00 05/25/22 08:00 05/25/22 03:00 96 Nasal Cannula 2 05/25/22 03:39 Nasal Cannula Laboratory Results Abnormal lab results 05/24/22 05/24/22 05/25/22 Range/Units 16:03 19:59 05:33 WBC 11.52 H (4.8-10.8) K/ul RBC 3.40 L (3.93-5.22) M/uL Hgb 8.7 L (12.0-16.0) g/dl Hct 27.8 L (34.1-44.9) % MCHC 31.3 L (32.0-36.0) g/dL RDW Std Deviation 48.2 H (36.4-46.3) fL RDW Coeff of Zeynep 16.2 H (11.5-14.5) % Neut # (Auto) 8.64 H (1.4-6.5) K/uL Lymph # (Auto) 0.97 L (1.2-3.4) K/uL Immature Gran # (Auto) 0.95 H (0.00-0.02) K/uL Glucose (70-99(Fasting)) mg/dl POC Glucose 108 H 128 H (70-99) mg/dl Calcium (8.5-10.1) mg/dl Total Protein (6.0-8.3) gm/dl Albumin (3.4-5.0) gm/dl 05/25/22 05/25/22 05/25/22 Range/Units 05:33 07:30 11:01 WBC (4.8-10.8) K/ul RBC (3.93-5.22) M/uL Hgb (12.0-16.0) g/dl Hct (34.1-44.9) % MCHC (32.0-36.0) g/dL RDW Std Deviation (36.4-46.3) fL RDW Coeff of Zeynep (11.5-14.5) % Neut # (Auto) (1.4-6.5) K/uL Lymph # (Auto) (1.2-3.4) K/uL Immature Gran # (Auto) (0.00-0.02) K/uL Glucose 122 H (70-99(Fasting)) mg/dl POC Glucose 119 H 135 H (70-99) mg/dl Calcium 7.8 L (8.5-10.1) mg/dl Total Protein 4.7 L (6.0-8.3) gm/dl Albumin 2.3 L (3.4-5.0) gm/dl
[2022-05-25] MEDS: oxyCODONE HCL SOLN 5 MG/5 ML UDC PO PRN ×2 (13:44→21:56)
[2022-05-25] MEDS: MONTELUKAST SODIUM 10 MG TABLET PO SCH (21:33)
[2022-05-25] MEDS: DONEPEZIL HCL 10 MG TAB PO SCH (21:33)
[2022-05-25] MEDS: FLUTICASONE PROPIONATE NA SPR 16 GM BTL SCH (21:33)
--- NOTE | 2022-05-25 22:46 | Electrocardiogram Report ---
Test Reason : Blood Pressure : / mmHG Vent. Rate : 087 BPM Atrial Rate : 087 BPM P-R Int : 186 ms QRS Dur : 098 ms QT Int : 404 ms P-R-T Axes : 041 021 034 degrees QTc Int : 486 ms Normal sinus rhythm Low voltage QRS Prolonged QT Abnormal ECG When compared with ECG of 23-MAY-2022 04:04, No significant change was found Confirmed by Endy Cantu ([id number]) on 05/25/2022 10:45:58 PM Referred By: REFERRED SELF Confirmed By:Endy Cantu
--- NOTE | 2022-05-25 22:58 | Hospitalist Progress Note ---
Date of Service May 25, 2022 Assessment & Plan (1) Overdose of trazodone: Plan: patient expressed intentional overdose of trazodone found to be somnolent but arousable found to have WBC 34, lactic acidosis 7, Cr 2.35 (baseline 0.81), bicarb 19 Received IVF Poison control contacted recommended to monitor EKG for prolong QTC Psych on board Continue 1 to 1 sitter Pt cannot leave AMA Continue to hold psych medications for now Once medically cleared plan for psychiatric hospitalization (2) Sepsis: Plan: Bacteremia WBC on admission 34K, now trending down to normal Elevated procalcitonin Blood cx positive for staph aureus, pseudomonas and alpha strep not strep pneumonia/ enterococcus Continue IV abx daptomycin and Zosyn Repeat blood cx no grow Consider ID to guide on antibiotic duration Buttock abscess S/P day #1 Debridement Right Buttock Abscess(Right) performed today by Dr. Amador culture from the wound grew staph aureus Continue current abx therapy wound care consut (3) Hyponatremia: Plan: likely due to decrease po intake and diarrhea Na on admission 121 Nephrology on board Na improved to 133 Clinically improves (4) Lactic acidosis: Plan: likely related to acute overdose received IVF resolved (5) Leukocytosis: Plan: likely in the setting of acute overdose vs sepsis Continue IVF abx WBC normalized (6) Chronic pain: Plan: Continue to holding pain medications given overdose Will resume pain med and titrate when able Continue Tylenol prn (7) Diabetes mellitus, type II: Plan: Most recent hab1c 6.9 Continue to hold metformin pharmacy on board for glycemic management Continue monitor BS (8) Depression: Plan: Suicidal ideation leading to acute overdose case discussed with Psych Continue to hold psych medication Continue observation 1:1 for patient safety Cannot leave AMA Might need inpatient geriatric psych (9) Hypothyroidism: Plan: - continue levothyroxine (10) Anemia: Plan: Hgb 9.8 on presentation, baseline around 12 Hgb 8.7 today no signs of active bleeding Continue monitor H/H Plan DVT ppx: on Heparin subq Full Code Disposition Will discharbe once medically stable Admission and Anticipated Discharge Date Admission Date: May 22, 2022 Subjective Pt was seen and examined for follow up for trazodone overdose, lethargy and confusion Lying in bed with no acute distress with 1 to 1 sitter Pt said that she is having tenderness in her buttock area from the incision Denies any chest pain, palpitation, dizziness, fever and SOB Review of Systems Review of Systems: All systems reviewed & are unremarkable except as noted in Subjective Physical Exam Physical Exam: General- Confused, no acute distress Head- atraumatic Eyes- PERRL, EOMI, ENT- oropharynx clear Neck- supple, no JVD Lungs- clear to auscultation Heart- regular rhythm; no murmur Abdomen- normal bowel sounds, soft, nontender Extremities- no calf tenderness Neuro- awake, confused; PERRL, EOMI; no facial palsy; no dysarthria Skin- warm & dry Results & Data Results & Data ([facility]) Vital Signs (Past 12 Hours) Vital Signs Temp Pulse Pulse Resp BP Pulse Ox O2 Del Method 05/25/22 11:00 Nasal Cannula 05/25/22 16:00 36.8 C 102 H 14 139/115 H 98 Nasal Cannula 05/25/22 11:00 36.9 C 99 H 18 132/63 99 Nasal Cannula 05/25/22 11:00 97 H 16 O2 Flow Rate 05/25/22 11:00 2 05/25/22 16:00 2 05/25/22 11:00 2 05/25/22 11:00
--- NOTE | 2022-05-25 23:43 | Electrocardiogram Report ---
Test Reason : Blood Pressure : / mmHG Vent. Rate : 099 BPM Atrial Rate : 099 BPM P-R Int : 184 ms QRS Dur : 094 ms QT Int : 362 ms P-R-T Axes : 042 011 004 degrees QTc Int : 464 ms Normal sinus rhythm Low voltage QRS Borderline ECG When compared with ECG of 23-MAY-2022 17:31, QT has shortened Confirmed by Endy Cantu ([id number]) on 05/25/2022 11:43:03 PM Referred By: REFERRED SELF Confirmed By:Endy Cantu
[2022-05-26] MEDS: ACETAMINOPHEN 325 MG TAB PO PRN ×2 (00:45→07:31)
[2022-05-26] MEDS: PIPERACILLIN/TAZOBACTAM 4.5 GM in DEXTROSE 5% 100 ML IV SCH (01:50)
[2022-05-26] MEDS: oxyCODONE HCL SOLN 5 MG/5 ML UDC PO PRN ×4 (03:16→21:34)
[2022-05-26] MEDS: LEVOTHYROXINE SODIUM 100 MCG TABLET PO SCH (05:44)
[2022-05-26 07:01] LABS: Hematocrit (blood only) 30.2 % (34.1-44.9); Hemoglobin 9.5 g/dl (12.0-16.0); Mean Corpuscular Hemoglobin 25.6 pg (25.0-34.0); Mean Corpuscular Hgb Conc 31.5 g/dL (32.0-36.0); Mean Corpuscular Volume 81.4 fL (80.0-100.0); Mean Platelet Volume 9.9 fL (9.4-12.3); Platelet Count 209 K/uL (130-400); RDW Coefficient of Variation 15.9 % (11.5-14.5); RDW Standard Deviation 47.6 fL (36.4-46.3); Red Blood Count 3.71 M/uL (3.93-5.22); White Blood Count 13.76 K/ul (4.8-10.8)
[2022-05-26] MEDS: DAPTOmycin 550 MG in SYRINGE 0 ML IV SCH (07:31)
[2022-05-26] MEDS: FAMOTIDINE 40 MG TABLET PO SCH ×2 (07:32→21:26)
[2022-05-26] MEDS: PANTOprazole 40 MG TAB PO SCH (07:33)
[2022-05-26] MEDS: FOLIC ACID 400 MCG TAB PO SCH (07:33)
[2022-05-26] MEDS: MEMANTINE HCL 10 MG TAB PO SCH ×2 (07:33→21:29)
[2022-05-26] MEDS: FLUTICASONE/VILANTEROL 200/25MCG 14 PUFFS/INHALER INH SCH (07:33)
[2022-05-26] MEDS: HEPARIN SOD 5,000 UNIT/0.5 ML VIAL SQ SCH ×2 (07:34→21:28)
[2022-05-26] MEDS: INSULIN ASPART PER UNIT SC SCH ×4 (09:27→21:28)
[2022-05-26] MEDS: SODIUM CHLORIDE 0.9% 1000ML 1,000 ML IV SCH (09:42)
[2022-05-26] MEDS: CEFEPIME 2,000 MG in SYRINGE 0 ML IV SCH ×2 (10:30→18:32)
--- NOTE | 2022-05-26 11:10 | Psychiatric Progress Note ---
Date of Service May 26, 2022 Impression / Recommendations Impression This is a 76 yo admitted medically following an intentional overdose suicide attempt. Diagnostically consistent with MDD in the context of recent stressors including worsening pain and recent medical issues and possible contribution from vascular dementia leading to impulsivity though appears much of her initial cognitive impairment was due to delirium which has improved significantly over the last few days. Acute risk of self-harm remains elevated but is now low given denial of SI and hopeful and can speak to factors that have changed but also with recent suicide attempt requiring medical admission and impulsivity. Will continue to evaluate if she will require inpatient psychiatric care once medically stable. For now still in ICU and holding all psych medications. 05/26/22: Reviewed outpatient records from [facility] where she sees Dr. Broderick for psychiatric care. She was last seen in February 2022 described heightened situational anxiety. Denied any depressive symptoms at that time. Trisha previously benefited from the feeling good handbook. She had psychological testing [place] [address] Mendez with the pattern of deficits typical for subcortical and vascular dementias. Outpatient documentation no prior history of any suicide attempts. 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 May had been taking buspirone 5 mg 3 times daily as needed, Wellbutrin SR 100 mg twice daily, trazodone 50 mg nightly, Lamictal 150 mg daily and Cymbalta 60 mg twice daily. Her note in February her psychiatrist noted the "she has experienced some suicidal fantasy in setting of chronic pain and with progression of cognitive deficit she seems to be experiencing more anxiety". Most recent MMSE has not showed significant cognitive deficits but that based on her description she had been having more difficulty processing information and canceled repeat neuropsychological testing scheduled for January 2022. Today mood remains improved with no SI and glad to have survived overdose. She can speak to hopefulness about pain getting better with medical interventions as driving factor which has caused resolution of her SI. Feels she can remains safe in the hospital and alert nursing if SI re-occurs or if pain intensifies to the point of causing hopelessness. No other recent impulsive behaviors observed and review of [facility] records also reassuring. (1) Overdose of trazodone: (2) Depression: (3) Chronic pain: Plan -Can discontinue 1-on-1, would reinstate if she re-develops SI -Do not discharge or allow to leave AMA, may meet 302 criteria for warrant -Hold psych medications for now -Once medically cleared will determine if she needs psychiatric hospitalization versus additional outpatient services to address pain which was driving factor for overdose Interval History Identifying Information 76 yo woman who lives in [place] with her admitted medically following intentional ingestion. Psychiatry consulted for recommendations. Chief Complaint "I have a lot of pain but my mood is so much better". Review of Systems Notes Sleeping a lot, appetite decreased Subjective Subjective Patient was seen & assessed and interval progress reviewed. She notes she continues to have significant pain particularly around the site of her surgical debridement from a few days ago. Notes that she had a "wonderful visit" with her family yesterday and really enjoyed spending time with them. She continues to state that in terms of her mood she is "so much better" and denies suicidal ideation and is glad that she is alive and survived the suicide attempt. We discussed what has contributed to this change in her mood and suicidal ideation as she continues to have pain and she states "I do still have pain but now I feel hopeful I have a strong prospect that the pain could get better with the treatment I am getting". Reviewed with her that due to the overdose and limited historical information at the time we held her psychiatric meds and have continued to do so. She is agreeable with this and with us continuing to hold the psychiatric medications at this time particularly as she continues to have periods of significant sedation. She feels that she can be safe in the hospital and that if she were to have thoughts of suicide again that she could alert nursing. Procedures Performed Operation Date: 05/24/22 10:45 Actual Procedures p Debridement Right Buttock Abscess(Right) - Sarah Amador MD Physical Exam Psychiatric Orientation: alert, oriented x 3 and cooperative Apperance: appropriately dressed and + disheveled Eye Contact: good eye contact Motor Behavior: no abnormal motor movements Speech: normal rate/rhythm/volume of speech Affect: euthymic affect (smiling especially when describing visit with her family) Mood: no depressed mood (still with physical pain ) and no anxious mood Thought Process: clear/coherent thought process Thought Content: reality based without delusions Suicidal Thoughts: denies suicidal thoughts Homicidal Thoughts: denies homicidal thoughts Hallucinations: no auditory hallucinations and no visual hallucinations Cognition: recent memory grossly intact, remote memory grossly intact, attention grossly intact and language grossly intact Estimated Intelligence: consistent with education level Insight: + fair insight Judgement: + fair judgement Vital Signs (Past 24 Hours) Last Vital Signs Temp 37.3 C 05/26/22 04:00 Pulse 100 H 05/26/22 07:19 Resp 25 H 05/26/22 05:00 BP 160/96 H 05/26/22 04:00 Pulse Ox 99 05/26/22 00:00 O2 Del Method 05/26/22 08:00 O2 Flow Rate 2 05/26/22 07:00 Results & Data ([facility]) Laboratory Results Laboratory Results - last 24 hr 05/25/22 05/25/22 05/25/22 11:01 16:03 20:07 WBC RBC Hgb Hct MCV MCH MCHC RDW Std Deviation RDW Coeff of Zeynep Plt Count MPV POC Glucose 135 H 153 H 164 H 05/26/22 05/26/22 05:54 07:23 WBC 13.76 H RBC 3.71 L Hgb 9.5 L Hct 30.2 L MCV 81.4 MCH 25.6 MCHC 31.5 L RDW Std Deviation 47.6 H RDW Coeff of Zeynep 15.9 H Plt Count 209 MPV 9.9 POC Glucose 111 H Current Inpatient Medications Current Inpatient Medications: Current Inpatient Medications Acetaminophen (Acetaminophen 325 Mg Tab) 650 mg PO Q4H PRN PRN Reason: Pain or Fever Stop: 06/23/22 01:06 Last Admin: 05/26/22 07:31 Dose: 650 mg Albuterol (Albuterol Hfa 8 Gm Inhaler) 2 puffs INH Q4H PRN PRN Reason: SHORT OF BREATH Stop: 06/21/22 08:46 Albuterol (Albuterol 0.083% Nebu Soln 3 Ml Vial) 2.5 mg INH ONCE PRN; Protocol PRN Reason: SOB/WHEEZING Stop: 06/21/22 08:24 Dextrose (Dextrose 50% 50 Ml Syringe) 25 - 50 ml IV UD PRN; Protocol PRN Reason: Hypoglycemia Protocol Stop: 06/21/22 21:49 Last Admin: 05/22/22 21:58 Dose: 25 ml Donepezil HCl (Donepezil Hcl 10 Mg Tab) 10 mg PO HS SARAI Stop: 06/21/22 20:59 Last Admin: 05/25/22 21:33 Dose: 10 mg Famotidine (Famotidine 40 Mg Tablet) 40 mg PO BID SARAI Stop: 06/21/22 08:59 Last Admin: 05/26/22 07:32 Dose: 40 mg Fluticasone Propionate (Fluticasone Propionate Na Spr 16 Gm Btl) 2 sprays NA HS SARAI Stop: 06/21/22 20:59 Last Admin: 05/25/22 21:33 Dose: 2 sprays Fluticasone/Vilanterol (Fluticasone/Vilanterol 200/25mcg 14 Puffs/Inhaler) 1 puffs INH DAILY SARAI Stop: 06/21/22 08:59 Last Admin: 05/26/22 07:33 Dose: 1 puffs Folic Acid (Folic Acid 400 Mcg Tab) 800 mcg PO QAM SARAI Stop: 06/21/22 08:59 Last Admin: 05/26/22 07:33 Dose: 800 mcg Glucagon (Glucagon For Inj 1 Mg Vial) 1 mg SQ UD PRN; Protocol PRN Reason: Hypoglycemia Protocol Stop: 06/21/22 21:49 Glucose (Glucose 40% Gel 15 Gm Tube) 15 - 30 gm PO UD PRN; Protocol PRN Reason: Hypoglycemia Protocol Stop: 06/21/22 21:49 Glucose (Glucose 10 Tab/Tube) 4 - 8 tab PO UD PRN; Protocol PRN Reason: Hypoglycemia Treatment Stop: 06/21/22 21:49 Heparin Sodium (Porcine) (Heparin Sod 5,000 Unit/0.5 Ml Vial) 5,000 units SQ Q12 SARAI Stop: 06/22/22 20:59 Last Admin: 05/26/22 07:34 Dose: 5,000 units Daptomycin 550 mg/ Syringe 11 mls @ 5.5 mls/min IV Q24H SARAI; Protocol Stop: 06/06/22 08:29 Last Admin: 05/26/22 07:31 Dose: 5.5 mls/min Cefepime HCl 2,000 mg/ Syringe 20 mls @ 5 mls/min IV Q8H SARAI; Protocol Stop: 06/09/22 09:59 Last Admin: 05/26/22 10:30 Dose: 5 mls/min Insulin Aspart (Insulin Aspart Per Unit) 0 units SC ACHS SARAI Stop: 06/21/22 08:24 Last Admin: 05/26/22 09:27 Dose: Not Given Levothyroxine Sodium (Levothyroxine Sodium 100 Mcg Tablet) 100 mcg PO DAILYBB [facility] Stop: 06/21/22 08:59 Last Admin: 05/26/22 05:44 Dose: 100 mcg Magnesium Oxide (Magnesium Oxide 400 Mg Tab) 400 mg PO Q2D@0900 [facility] Stop: 06/21/22 08:59 Last Admin: 05/25/22 08:26 Dose: 400 mg Memantine (Memantine Hcl 10 Mg Tab) 10 mg PO BID [facility] Stop: 06/22/22 08:59 Last Admin: 05/26/22 07:33 Dose: 10 mg Metronidazole (Metronidazole 500 Mg Tab) 500 mg PO TID [facility] Stop: 06/09/22 13:59 Miscellaneous (Carbohydrates For Hypoglycemia ) 15 - 30 gm PO UD PRN PRN Reason: Hypoglycemia Protocol Stop: 06/21/22 21:49 Montelukast Sodium (Montelukast Sodium 10 Mg Tablet) 10 mg PO HS [facility] Stop: 06/21/22 20:59 Last Admin: 05/25/22 21:33 Dose: 10 mg Oxycodone HCl (Oxycodone Hcl Soln 5 Mg/5 Ml Udc) 2.5 mg PO Q6H PRN PRN Reason: Pain Stop: 06/07/22 08:27 Last Admin: 05/26/22 10:49 Dose: 2.5 mg Pantoprazole Sodium (Pantoprazole 40 Mg Tab) 40 mg PO QAM [facility] Stop: 06/22/22 08:59 Last Admin: 05/26/22 07:33 Dose: 40 mg
--- NOTE | 2022-05-26 12:08 | Surgery Progress Note ---
Date of Service May 26, 2022 Assessment & Plan (1) Abscess of buttock, right: Plan: pt is 76 year-old female who was admitted to ICU for Unresponsive episode, metabolic acidosis, hyponatremia IMP : abscess of right buttock, plan, I recommend to do I/D right buttock abscess, D/W benefits, risks and alternatives of the surgery, the risks- infection, sepsis, bleeding, recurrence, pt and her on the phone understood, they agree with surgery, pt's gave consent on phone, I answered all questions, 05/25/2022 1:[address] Amador F/U S/P Debridement Right Buttock Abscess, POD 1, wound culture, -Gram Stain Final 05/24/22 Gram Stain Result Moderate Gram Positive Cocci Many WBCs Seen Aero/Jennifer Cult Preliminary 05/25/22-1058 Organism 1 Staphylococcus species Quantity Moderate Sens Sensitivities to Follow doing fine, consult wound care nurse for packing change once every other day, pt may need wound VAC, continue iv antibiotic, will F/U 05/26/2022 12: 06Pm F/U S/P Debridement Right Buttock Abscess, POD 2 stable, continue iv antibiotic, contact worker surgeon cover this weekend, Thanks, Admission and Anticipated Discharge Date Admission Date: May 22, 2022 Supervising Physician Co-Signing Physician Notes Patient seen and examined. EMR reviewed. Discussed on multidisciplinary rounds and with family practice resident. Agree with assessment plan as noted. Patient is clinically improved today. Her sensorium is much clearer. She is complaining of some pain in her backside and there now appears to be areas of purulence/microabscess formation. General surgery consult obtained with plans to take the patient to the OR today for I&D. We will continue current antibiotics pending deep cultures. Her sodium and acute kidney injury have resolved. Will use low-dose oxycodone for acute pain control. Chronic pain management may be an issue for her in the future. We will try and get her mobilized as much as possible given her buttock issues. Try and keep her off that area is much as possible. She will require physical therapy and Occupational Therapy evaluations at some point. Continue one-to-one given suicidal ideation and reported suicide attempt. Appreciate behavioral health assistance. She is not yet medically cleared. I think the patient is stable to transfer out of the intensive care unit. Will sign off at this point time unless the patient requires ICU level care postoperatively. Subjective Pt was seen and examined for follow up for trazodone overdose, lethargy and confusion Lying in bed with no acute distress with 1 to 1 sitter Pt said that she is having tenderness in her buttock area from the incision Denies any chest pain, palpitation, dizziness, fever and SOB 05/26/2022 12:05PM. F/U I/D right buttock abscess, POD 2 pt is stable, T 37.5 Physical Exam Constitutional: WD/WN, vitals as above Eyes: PERRL, conjunctivae normal, anicteric sclerae Neck: trachea midline, no thyromegaly Respiratory: normal respiratory effort, lungs clear to auscultation Cardiovascular: RRR, no murmur, no edema Gastrointestinal (Abdomen): normal bowel sounds, soft, nontender, no hepatosplenomegaly the wound is still redness with cellulitis, Neurologic: patellar DTR's 2+ bilat, sensation intact Psychiatric: Orientation: alert Results & Data ([facility]) Vital Signs (Past 12 Hours) Vital Signs Temp Pulse Pulse Resp BP Pulse Ox O2 Del Method 05/26/22 11:21 37.3 C 93 H 16 161/94 H 96 Room Air 05/26/22 08:00 Nasal Cannula 05/26/22 07:00 Nasal Cannula 05/26/22 07:19 100 H 05/26/22 04:00 37.3 C 160/96 H 05/26/22 05:00 100 H 25 H 05/26/22 04:00 99 H 32 H 05/26/22 03:00 101 H 17 05/26/22 02:02 Nasal Cannula O2 Flow Rate 05/26/22 11:21 05/26/22 08:00 05/26/22 07:00 2 05/26/22 07:19 05/26/22 04:00 05/26/22 05:00 05/26/22 04:00 05/26/22 03:00 05/26/22 02:02 2 Laboratory Results Abnormal lab results 05/25/22 05/25/22 05/26/22 Range/Units 16:03 20:07 05:54 WBC 13.76 H (4.8-10.8) K/ul RBC 3.71 L (3.93-5.22) M/uL Hgb 9.5 L (12.0-16.0) g/dl Hct 30.2 L (34.1-44.9) % MCHC 31.5 L (32.0-36.0) g/dL RDW Std Deviation 47.6 H (36.4-46.3) fL RDW Coeff of Zeynep 15.9 H (11.5-14.5) % POC Glucose 153 H 164 H (70-99) mg/dl 05/26/22 05/26/22 Range/Units 07:23 11:18 WBC (4.8-10.8) K/ul RBC (3.93-5.22) M/uL Hgb (12.0-16.0) g/dl Hct (34.1-44.9) % MCHC (32.0-36.0) g/dL RDW Std Deviation (36.4-46.3) fL RDW Coeff of Zeynep (11.5-14.5) % POC Glucose 111 H 111 H (70-99) mg/dl
[2022-05-26] MEDS: metroNIDAZOLE 500 MG TAB PO SCH ×2 (14:44→21:29)
--- NOTE | 2022-05-26 17:39 | Hospitalist Progress Note ---
Date of Service May 26, 2022 Assessment & Plan (1) Overdose of trazodone: Plan: patient expressed intentional overdose of trazodone found to be somnolent but arousable found to have WBC 34, lactic acidosis 7, Cr 2.35 (baseline 0.81), bicarb 19 Received IVF Poison control contacted recommended to monitor EKG for prolong QTC Psych on board will d/c 1 to 1 sitter as per psych; but Pt cannot leave AMA if starting to show or making comment about suicidal, will put her back on 1 to 1 Continue to hold psych medications for now (2) Sepsis: Plan: Bacteremia WBC on admission 34K, now trending down to normal Elevated procalcitonin Blood cx positive for staph aureus, pseudomonas and alpha strep not strep pneumonia/ enterococcus Repeat blood cx no grow ID recommended to continue daptomycin; Zosyn discontinued and started on Cefepime and flagyl Echo showed no evidence of vegetation Buttock abscess S/P day #2 Debridement Right Buttock Abscess(Right) performed today by Dr. Amador culture from the wound grew staph aureus Continue current abx therapy with daptomycin, cefepime and flagyl Wound care nurse on board recommended daily dressing change Continue monitor (3) Hyponatremia: Plan: likely due to decrease po intake and diarrhea Na on admission 121 Nephrology on board Na improved to 133 Clinically improves (4) Lactic acidosis: Plan: likely related to acute overdose received IVF resolved (5) Leukocytosis: Plan: likely in the setting of acute overdose vs sepsis Continue IVF abx WBC 13K (6) Chronic pain: Plan: Continue to holding pain medications given overdose Will resume pain med and titrate when able Continue Tylenol prn (7) Diabetes mellitus, type II: Plan: Most recent hab1c 6.9 Continue to hold metformin pharmacy on board for glycemic management Continue monitor BS (8) Depression: Plan: Suicidal ideation leading to acute overdose case discussed with Psych Continue to hold psych medication Will discontinue 1 to 1 sitter Cannot leave AMA Might need inpatient geriatric psych (9) Hypothyroidism: Plan: - continue levothyroxine (10) Anemia: Plan: Hgb 9.8 on presentation, baseline around 12 Hgb 9.5 today no signs of active bleeding Continue monitor H/H Plan DVT ppx: on Heparin subq Full Code Disposition Will discharbe once medically stable Admission and Anticipated Discharge Date Admission Date: May 22, 2022 Subjective Pt was seen and examined for follow up for trazodone overdose, lethargy and confusion Lying in bed with no acute distress with 1 to 1 sitter Pt said that she is having pain in her buttock area from the incision Pt said that the reason she said that she wants to was because her pain was very intense Denies any hallucination, chest pain, palpitation, dizziness, fever and SOB Review of Systems Review of Systems: All systems reviewed & are unremarkable except as noted in Subjective Physical Exam Physical Exam: General- no acute distress Head- atraumatic Eyes- PERRL, EOMI, ENT- oropharynx clear Neck- supple, no JVD Lungs- clear to auscultation Heart- regular rhythm; no murmur Abdomen- normal bowel sounds, soft, nontender, right buttock tenderness and redness with dressing on Extremities- no calf tenderness Neuro- awake, dementia; PERRL, EOMI; no facial palsy; no dysarthria Skin- warm & dry Results & Data Results & Data ([facility]) Vital Signs (Past 12 Hours) Vital Signs Temp Pulse Pulse Resp BP Pulse Ox O2 Del Method 05/26/22 15:12 37.2 C 97 H 23 151/65 H 95 Room Air 05/26/22 11:21 37.3 C 93 H 16 161/94 H 96 Room Air 05/26/22 08:00 Nasal Cannula 05/26/22 07:00 Nasal Cannula 05/26/22 07:19 100 H O2 Flow Rate 05/26/22 15:12 05/26/22 11:21 05/26/22 08:00 05/26/22 07:00 2 05/26/22 07:19
[2022-05-26] MEDS: DONEPEZIL HCL 10 MG TAB PO SCH (21:26)
[2022-05-26] MEDS: FLUTICASONE PROPIONATE NA SPR 16 GM BTL SCH (21:27)
[2022-05-26] MEDS: MONTELUKAST SODIUM 10 MG TABLET PO SCH (21:29)
[2022-05-27] MEDS: CEFEPIME 2,000 MG in SYRINGE 0 ML IV SCH ×3 (02:09→17:01)
[2022-05-27] MEDS: oxyCODONE HCL SOLN 5 MG/5 ML UDC PO PRN ×4 (03:20→23:06)
[2022-05-27 06:03] LABS: BUN Creatinine Ratio 21.2 (10-20); Calcium 7.8 mg/dl (8.5-10.1); Creatinine Clr Calc Pharmacy 82.7 ml/min; Est GFR (African American) 100.9 ml/min; Potassium 3.3 mmol/L (3.5-5.1)
[2022-05-27 06:33] LABS: Hematocrit (blood only) 29.7 % (34.1-44.9); Hemoglobin 9.7 g/dl (12.0-16.0); Mean Corpuscular Hemoglobin 25.8 pg (25.0-34.0); Mean Corpuscular Hgb Conc 32.7 g/dL (32.0-36.0); Mean Platelet Volume 10.2 fL (9.4-12.3); Nucleated RBC # (auto) 0.03 K/uL (0-0); Nucleated RBC % (auto) 0.1 %; Platelet Count 297 K/uL (130-400); RDW Coefficient of Variation 15.9 % (11.5-14.5); RDW Standard Deviation 45.5 fL (36.4-46.3); Red Blood Count 3.76 M/uL (3.93-5.22); White Blood Count 22.17 K/ul (4.8-10.8)
[2022-05-27] MEDS: LEVOTHYROXINE SODIUM 100 MCG TABLET PO SCH ×2 (07:12→07:42)
[2022-05-27] MEDS: INSULIN ASPART PER UNIT SC SCH ×4 (07:41→20:58)
[2022-05-27] MEDS: ACETAMINOPHEN 325 MG TAB PO PRN ×3 (07:41→20:26)
[2022-05-27] MEDS: DAPTOmycin 550 MG in SYRINGE 0 ML IV SCH (07:41)
[2022-05-27] MEDS: PANTOprazole 40 MG TAB PO SCH (07:42)
[2022-05-27] MEDS: MEMANTINE HCL 10 MG TAB PO SCH ×2 (07:42→20:30)
[2022-05-27] MEDS: FOLIC ACID 400 MCG TAB PO SCH (07:42)
[2022-05-27] MEDS: metroNIDAZOLE 500 MG TAB PO SCH ×3 (07:42→20:30)
[2022-05-27] MEDS: HEPARIN SOD 5,000 UNIT/0.5 ML VIAL SQ SCH ×2 (07:43→20:27)
[2022-05-27] MEDS: FAMOTIDINE 40 MG TABLET PO SCH ×2 (07:43→20:31)
[2022-05-27] MEDS: FLUTICASONE/VILANTEROL 200/25MCG 14 PUFFS/INHALER INH SCH (07:43)
[2022-05-27] MEDS: FIRST - Mouthwash BLM 119 ML PO SCH ×3 (09:02→23:07)
[2022-05-27] MEDS ORDERED: POTASSIUM CHLORIDE 10 MEQ TABCR PO STA (10:07)
--- NOTE | 2022-05-27 10:10 | Surgery Progress Note ---
Date of Service May 27, 2022 Assessment & Plan (1) Abscess of buttock, right: Plan: Per nursing obtaining a lot of purulent fluid from wound site. Currently with an occlusive Optifoam type dressing. Recommend replacing that with simple gauze and tape so that it is less occlusive. Continue packing changes daily Admission and Anticipated Discharge Date Admission Date: May 22, 2022 Subjective Patient sleeping. We did not wake her. Discussed her care with nursing Results & Data ([facility]) Vital Signs (Past 12 Hours) Vital Signs Temp Pulse Pulse Resp BP BP Pulse Ox 05/27/22 08:24 37.5 C 100 H 20 150/75 H 96 05/27/22 06:56 98 H 28 H 05/27/22 06:56 156/84 H 05/27/22 06:54 99 H 24 05/27/22 06:00 13 05/27/22 05:00 20 05/27/22 04:00 102 H 5 L 05/27/22 03:19 103 H 15 05/27/22 02:00 105 H 05/27/22 01:00 101 H 10 L 05/27/22 07:01 37.5 C 05/27/22 00:00 100 H 27 H 05/26/22 23:00 104 H 19 05/27/22 00:00 105 H 05/26/22 22:18 O2 Del Method 05/27/22 08:24 Room Air 05/27/22 06:56 05/27/22 06:56 05/27/22 06:54 05/27/22 06:00 05/27/22 05:00 05/27/22 04:00 05/27/22 03:19 05/27/22 02:00 05/27/22 01:00 05/27/22 07:01 05/27/22 00:00 05/26/22 23:00 05/27/22 00:00 05/26/22 22:18 Room Air PG Care Time/CCT Total # of Minutes Spent Total Time Spent with Patient: Total time spent is greater than 50% in coordination of care (as documented) at patient's floor/unit and/or counseling patient: Coding Level of Care Code None Diagnoses Abscess of buttock, right L02.31
[2022-05-27] MEDS ORDERED: SODIUM CHLORIDE 0.65% NA SOLN 45 ML (OCEAN) PRN (16:19)
[2022-05-27] MEDS: FLUTICASONE PROPIONATE NA SPR 16 GM BTL SCH (20:28)
[2022-05-27] MEDS: MONTELUKAST SODIUM 10 MG TABLET PO SCH (20:30)
[2022-05-27] MEDS: DONEPEZIL HCL 10 MG TAB PO SCH (23:05)
--- NOTE | 2022-05-27 23:27 | Hospitalist Progress Note ---
Date of Service May 27, 2022 Assessment & Plan (1) Overdose of trazodone: Plan: patient expressed intentional overdose of trazodone found to be somnolent but arousable found to have WBC 34, lactic acidosis 7, Cr 2.35 (baseline 0.81), bicarb 19 Received IVF Poison control contacted recommended to monitor EKG for prolong QTC Psych on board 1 to 1 sitter discontinued but Pt cannot leave AMA if starting to show or making comment about suicidal, will put her back on to Continue to hold psych medications for now (2) Sepsis: Plan: Bacteremia WBC on admission 34K, now trending down to normal Elevated procalcitonin Blood cx positive for staph aureus, pseudomonas and alpha strep not strep pneumonia/ enterococcus Repeat blood cx no grow ID recommended to continue daptomycin; Zosyn discontinued and started on Cefepime and flagyl Echo showed no evidence of vegetation Buttock abscess S/P day #3 Debridement Right Buttock Abscess(Right) performed today by Dr. Amador culture from the wound grew staph aureus Continue current abx therapy with daptomycin, cefepime and flagyl Wound care nurse on board recommended daily dressing change Continue monitor (3) Hyponatremia: Plan: likely due to decrease po intake and diarrhea Na on admission 121 Nephrology on board Na improved to 133 Clinically improves (4) Lactic acidosis: Plan: likely related to acute overdose received IVF resolved (5) Leukocytosis: Plan: likely in the setting of acute overdose vs sepsis Continue IVF abx WBC 13K (6) Chronic pain: Plan: Continue to holding pain medications given overdose Will resume pain med and titrate when able Continue Tylenol prn (7) Diabetes mellitus, type II: Plan: Most recent hab1c 6.9 Continue to hold metformin pharmacy on board for glycemic management Continue monitor BS (8) Depression: Plan: Suicidal ideation leading to acute overdose case discussed with Psych Continue to hold psych medication Will discontinue 1 to 1 sitter Cannot leave AMA Might need inpatient geriatric psych (9) Hypothyroidism: Plan: - continue levothyroxine (10) Anemia: Plan: Hgb 9.8 on presentation, baseline around 12 Hgb 9.5 today no signs of active bleeding Continue monitor H/H Plan DVT ppx: on Heparin subq Full Code Disposition Will discharbe once medically stable Admission and Anticipated Discharge Date Admission Date: May 22, 2022 Subjective Pt was seen and examined for follow up for trazodone overdose, lethargy and confusion Lying in bed with no acute distress with and son at bedside Pt is more awake today and she said pain in her right buttock continue to improves Updated the family and answered all the questions at bedside Denies any hallucination, chest pain, palpitation, dizziness, fever and SOB Review of Systems Review of Systems: All systems reviewed & are unremarkable except as noted in Subjective Physical Exam Physical Exam: General- no acute distress Head- atraumatic Eyes- PERRL, EOMI, ENT- oropharynx clear Neck- supple, no JVD Lungs- clear to auscultation Heart- regular rhythm; no murmur Abdomen- normal bowel sounds, soft, nontender, right buttock tenderness and redness with dressing on Extremities- no calf tenderness Neuro- awake, dementia; PERRL, EOMI; no facial palsy; no dysarthria Skin- warm & dry Results & Data Results & Data ([facility]) Vital Signs (Past 12 Hours) Vital Signs Temp Pulse Pulse Pulse Resp BP Pulse Ox 05/27/22 22:36 37.0 C 95 H 18 143/67 H 94 05/27/22 20:30 37 C 91 H 20 161/78 H 95 05/27/22 16:00 05/27/22 15:00 37.0 C 68 18 137/75 96 05/27/22 15:03 98 H 05/27/22 14:43 37 C 97 H 16 155/76 H 96 05/27/22 12:57 37.0 C 96 H 19 155/86 H 97 O2 Del Method 05/27/22 22:36 Room Air 05/27/22 20:30 Room Air 05/27/22 16:00 Room Air 05/27/22 15:00 Room Air 05/27/22 15:03 05/27/22 14:43 Room Air 05/27/22 12:57 Room Air
[2022-05-28] MEDS: ACETAMINOPHEN 325 MG TAB PO PRN ×3 (01:18→20:53)
[2022-05-28] MEDS: CEFEPIME 2,000 MG in SYRINGE 0 ML IV SCH ×3 (01:50→17:38)
[2022-05-28] MEDS: LEVOTHYROXINE SODIUM 100 MCG TABLET PO SCH (06:01)
[2022-05-28] MEDS: FIRST - Mouthwash BLM 119 ML PO SCH ×2 (07:31→17:38)
[2022-05-28] MEDS: DAPTOmycin 550 MG in SYRINGE 0 ML IV SCH (07:36)
[2022-05-28] MEDS: FAMOTIDINE 40 MG TABLET PO SCH ×2 (07:37→20:43)
[2022-05-28] MEDS: MEMANTINE HCL 10 MG TAB PO SCH ×2 (07:37→20:42)
[2022-05-28] MEDS: metroNIDAZOLE 500 MG TAB PO SCH ×3 (07:37→20:42)
[2022-05-28] MEDS: FOLIC ACID 400 MCG TAB PO SCH (07:38)
[2022-05-28] MEDS: MAGNESIUM OXIDE 400 MG TAB PO SCH (07:38)
[2022-05-28] MEDS: PANTOprazole 40 MG TAB PO SCH (07:38)
[2022-05-28] MEDS: HEPARIN SOD 5,000 UNIT/0.5 ML VIAL SQ SCH ×2 (07:40→20:42)
[2022-05-28] MEDS: FLUTICASONE/VILANTEROL 200/25MCG 14 PUFFS/INHALER INH SCH (07:40)
[2022-05-28 08:05] LABS: Hematocrit (blood only) 27.8 % (34.1-44.9); Hemoglobin 9.1 g/dl (12.0-16.0); Mean Corpuscular Hemoglobin 26.2 pg (25.0-34.0); Mean Corpuscular Hgb Conc 32.7 g/dL (32.0-36.0); Mean Corpuscular Volume 80.1 fL (80.0-100.0); Mean Platelet Volume 9.7 fL (9.4-12.3); Nucleated RBC # (auto) 0.03 K/uL (0-0); Nucleated RBC % (auto) 0.2 %; Platelet Count 277 K/uL (130-400); RDW Coefficient of Variation 15.9 % (11.5-14.5); RDW Standard Deviation 46.1 fL (36.4-46.3); Red Blood Count 3.47 M/uL (3.93-5.22); White Blood Count 15.29 K/ul (4.8-10.8)
[2022-05-28] MEDS: INSULIN ASPART PER UNIT SC SCH ×4 (08:29→21:58)
[2022-05-28 08:31] LABS: Calcium 7.4 mg/dl (8.5-10.1); Creatinine Clr Calc Pharmacy 93.6 ml/min; Est GFR (African American) 105.2 ml/min; Est GFR (Non-African American) 90.8 ml/min; Potassium 2.9 mmol/L (3.5-5.1)
[2022-05-28] MEDS: oxyCODONE HCL SOLN 5 MG/5 ML UDC PO PRN ×2 (10:11→17:42)
[2022-05-28] MEDS ORDERED: POTASSIUM CHLORIDE CRTAB 20 MEQ TABCR PO STA (10:34)
[2022-05-28] MEDS: POTASSIUM CHLORIDE / WTR 10 MEQ/100 ML PLCT IV SCH ×2 (11:05→12:48)
--- NOTE | 2022-05-28 11:21 | Surgery Progress Note ---
Date of Service May 28, 2022 Assessment & Plan (1) Abscess of buttock, right: Plan: Continue current care with daily packing changes. Could consider reimaging to ensure resolution of the abscess. I will allow this to the discretion of Dr. Amador. Admission and Anticipated Discharge Date Admission Date: May 22, 2022 Subjective Patient seen. Alert and oriented. Continues to have pain at her incision and drainage site. Per nursing there started a large amount of purulent drainage. Packing was already changed today. Physical Exam Physical Exam: Alert. No acute distress Dressing intact. Moderate amount of drainage Results & Data ([facility]) Vital Signs (Past 12 Hours) Vital Signs Temp Pulse Pulse Resp BP Pulse Ox O2 Del Method 05/28/22 11:10 37.5 C 81 16 142/83 H 96 Room Air 05/28/22 08:34 36.8 C 05/28/22 08:25 Room Air 05/28/22 08:00 87 05/28/22 03:53 37.1 C 89 17 137/76 95 Room Air 05/27/22 23:55 91 H PG Care Time/CCT Total # of Minutes Spent Total Time Spent with Patient: Total time spent is greater than 50% in coordination of care (as documented) at patient's floor/unit and/or counseling patient: Coding Level of Care Code None Diagnoses Abscess of buttock, right L02.31
--- NOTE | 2022-05-28 16:18 | Hospitalist Progress Note ---
Date of Service May 28, 2022 Assessment & Plan (1) Overdose of trazodone: Plan: patient expressed intentional overdose of trazodone found to be somnolent but arousable found to have WBC 34, lactic acidosis 7, Cr 2.35 (baseline 0.81), bicarb 19 Received IVF Poison control contacted recommended to monitor EKG for prolong QTC Psych on board 1 to 1 sitter discontinued but Pt cannot leave AMA if starting to show or making comment about suicidal, will put her back on to Continue to hold psych medications for now (2) Sepsis: Plan: Bacteremia WBC on admission 34K, now trending down to normal Elevated procalcitonin Blood cx positive for staph aureus, pseudomonas and alpha strep not strep pneumonia/ enterococcus Repeat blood cx no grow ID recommended to continue daptomycin; Zosyn discontinued and started on Cefepime and flagyl Echo showed no evidence of vegetation Buttock abscess S/P day #4 Debridement Right Buttock Abscess(Right) performed today by Dr. Amador culture from the wound grew staph aureus Continue current abx therapy with daptomycin, cefepime and flagyl Wound care nurse on board recommended daily dressing change Continue monitor (3) Hyponatremia: Plan: likely due to decrease po intake and diarrhea Na on admission 121 Nephrology on board Na improved to 137 Clinically improves (4) Hypokalemia: Plan: K 2.9 today K replaced Continue monitor BMP (5) Lactic acidosis: Plan: likely related to acute overdose received IVF resolved (6) Leukocytosis: Plan: likely in the setting of acute overdose vs sepsis Continue IVF abx WBC 15K (7) Chronic pain: Plan: Continue to holding pain medications given overdose Will resume pain med and titrate when able Continue Tylenol prn (8) Diabetes mellitus, type II: Plan: Most recent hab1c 6.9 Continue to hold metformin pharmacy on board for glycemic management Continue monitor BS (9) Depression: Plan: Suicidal ideation leading to acute overdose case discussed with Psych Continue to hold psych medication Will discontinue 1 to 1 sitter Cannot leave AMA Might need inpatient geriatric psych (10) Hypothyroidism: Plan: - continue levothyroxine (11) Anemia: Plan: Hgb 9.8 on presentation, baseline around 12 Hgb 9.1 today no signs of active bleeding Continue monitor H/H Plan DVT ppx: on Heparin subq Full Code Disposition Will discharbe once medically stable Admission and Anticipated Discharge Date Admission Date: May 22, 2022 Subjective Pt was seen and examined for follow up for buttock abscess Lying in bed with no acute distress Pt continues to have a lot of drainage from the right buttock incision Pt is more awake today She said that her pain is about a 3/10 Denies any hallucination, chest pain, palpitation, dizziness, fever and SOB Review of Systems Review of Systems: All systems reviewed & are unremarkable except as noted in Subjective Physical Exam Physical Exam: General- no acute distress Head- atraumatic Eyes- PERRL, EOMI, ENT- oropharynx clear Neck- supple, no JVD Lungs- clear to auscultation Heart- regular rhythm; no murmur Abdomen- normal bowel sounds, soft, nontender, right buttock tenderness and drainage Extremities- no calf tenderness Neuro- awake, dementia; PERRL, EOMI; no facial palsy; no dysarthria Skin- warm & dry Results & Data Results & Data ([facility]) Vital Signs (Past 12 Hours) Vital Signs Temp Pulse Pulse Pulse Resp BP Pulse Ox 05/28/22 15:20 37.3 C 87 20 155/100 H 98 05/28/22 15:05 86 05/28/22 11:10 37.5 C 81 16 142/83 H 96 05/28/22 08:34 36.8 C 05/28/22 08:25 05/28/22 08:00 87 O2 Del Method 05/28/22 15:20 Room Air 05/28/22 15:05 05/28/22 11:10 Room Air 05/28/22 08:34 05/28/22 08:25 Room Air 05/28/22 08:00
[2022-05-28] MEDS: MONTELUKAST SODIUM 10 MG TABLET PO SCH (20:41)
[2022-05-28] MEDS: DONEPEZIL HCL 10 MG TAB PO SCH (20:43)
[2022-05-28] MEDS: FLUTICASONE PROPIONATE NA SPR 16 GM BTL SCH (20:43)
[2022-05-29] MEDS: FIRST - Mouthwash BLM 119 ML PO SCH ×4 (00:02→23:03)
[2022-05-29] MEDS: oxyCODONE HCL SOLN 5 MG/5 ML UDC PO PRN ×3 (00:02→18:11)
[2022-05-29] MEDS: CEFEPIME 2,000 MG in SYRINGE 0 ML IV SCH ×3 (02:56→18:12)
[2022-05-29] MEDS: ACETAMINOPHEN 325 MG TAB PO PRN ×3 (03:53→22:45)
[2022-05-29] MEDS: LEVOTHYROXINE SODIUM 100 MCG TABLET PO SCH (06:03)
[2022-05-29 07:08] LABS: Hematocrit (blood only) 27.7 % (34.1-44.9); Hemoglobin 8.9 g/dl (12.0-16.0); Mean Corpuscular Hemoglobin 25.7 pg (25.0-34.0); Mean Corpuscular Hgb Conc 32.1 g/dL (32.0-36.0); Mean Corpuscular Volume 80.1 fL (80.0-100.0); Mean Platelet Volume 10.5 fL (9.4-12.3); Nucleated RBC # (auto) 0.05 K/uL (0-0); Nucleated RBC % (auto) 0.3 %; Platelet Count 313 K/uL (130-400); RDW Coefficient of Variation 16.1 % (11.5-14.5); RDW Standard Deviation 46.3 fL (36.4-46.3); Red Blood Count 3.46 M/uL (3.93-5.22); White Blood Count 14.91 K/ul (4.8-10.8)
[2022-05-29] MEDS: DAPTOmycin 550 MG in SYRINGE 0 ML IV SCH (07:34)
[2022-05-29 07:36] LABS: Anion Gap 8 (3-11); Blood Urea Nitrogen 12 mg/dl (6-23); Carbon Dioxide 25 mmol/L (21-32); Chloride 102 mmol/L (98-107); Creatinine Clr Calc Pharmacy 90.7 ml/min; Est GFR (African American) 104.1 ml/min; Est GFR (Non-African American) 89.8 ml/min; Glucose 101 mg/dl (70-99(Fasting)); Phosphorus 2.6 mg/dl (2.5-4.9); Sodium 135 mmol/L (136-145)
[2022-05-29] MEDS: PANTOprazole 40 MG TAB PO SCH (07:36)
[2022-05-29] MEDS: FLUTICASONE/VILANTEROL 200/25MCG 14 PUFFS/INHALER INH SCH (07:36)
[2022-05-29] MEDS: FAMOTIDINE 40 MG TABLET PO SCH ×2 (07:37→20:35)
[2022-05-29] MEDS: metroNIDAZOLE 500 MG TAB PO SCH ×3 (07:37→20:38)
[2022-05-29] MEDS: FOLIC ACID 400 MCG TAB PO SCH (07:38)
[2022-05-29] MEDS: HEPARIN SOD 5,000 UNIT/0.5 ML VIAL SQ SCH ×2 (07:38→20:36)
[2022-05-29] MEDS: INSULIN ASPART PER UNIT SC SCH ×4 (09:13→20:37)
[2022-05-29] MEDS: MEMANTINE HCL 10 MG TAB PO SCH ×2 (10:23→20:37)
--- NOTE | 2022-05-29 11:47 | Surgery Progress Note ---
Date of Service May 29, 2022 Assessment & Plan (1) Abscess of buttock, right: Plan: pt is 76 year-old female who was admitted to ICU for Unresponsive episode, metabolic acidosis, hyponatremia IMP : abscess of right buttock, plan, I recommend to do I/D right buttock abscess, D/W benefits, risks and alternatives of the surgery, the risks- infection, sepsis, bleeding, recurrence, pt and her on the phone understood, they agree with surgery, pt's gave consent on phone, I answered all questions, 05/25/2022 1:[address] Amador F/U S/P Debridement Right Buttock Abscess, POD 1, wound culture, -Gram Stain Final 05/24/22 Gram Stain Result Moderate Gram Positive Cocci Many WBCs Seen Aero/Jennifer Cult Preliminary 05/25/22-1058 Organism 1 Staphylococcus species Quantity Moderate Sens Sensitivities to Follow doing fine, consult wound care nurse for packing change once every other day, pt may need wound VAC, continue iv antibiotic, will F/U 05/26/2022 12: 06Pm F/U S/P Debridement Right Buttock Abscess, POD 2 stable, continue iv antibiotic, corrections identification technician surgeon cover this weekend, Thanks, 05/29/2022 12: 06Pm F/U S/P Debridement Right Buttock Abscess, POD 5 stable, recommend to do wound VAC continue iv antibiotic, will F/U, Admission and Anticipated Discharge Date Admission Date: May 22, 2022 Supervising Physician Co-Signing Physician Notes Patient seen and examined. EMR reviewed. Discussed on multidisciplinary rounds and with family practice resident. Agree with assessment plan as noted. Patient is clinically improved today. Her sensorium is much clearer. She is complaining of some pain in her backside and there now appears to be areas of purulence/microabscess formation. General surgery consult obtained with plans to take the patient to the OR today for I&D. We will continue current antibiotics pending deep cultures. Her sodium and acute kidney injury have resolved. Will use low-dose oxycodone for acute pain control. Chronic pain management may be an issue for her in the future. We will try and get her mobilized as much as possible given her buttock issues. Try and keep her off that area is much as possible. She will require physical therapy and Occupational Therapy evaluations at some point. Continue one-to-one given suicidal ideation and reported suicide attempt. Appreciate behavioral health assistance. She is not yet medically cleared. I think the patient is stable to transfer out of the intensive care unit. Will sign off at this point time unless the patient requires ICU level care postoperatively. Subjective Pt was seen and examined for follow up for buttock abscess Lying in bed with no acute distress Pt continues to have a lot of drainage from the right buttock incision Pt is more awake today She said that her pain is about a 3/10 Denies any hallucination, chest pain, palpitation, dizziness, fever and SOB 05/29/2022 11:46AM Dr. Amador F/U I/D right buttock abscess, pt is doing better, less incision site pain, T 36.9, Physical Exam Constitutional: WD/WN, vitals as above Eyes: PERRL, conjunctivae normal, anicteric sclerae Neck: trachea midline, no thyromegaly Respiratory: normal respiratory effort, lungs clear to auscultation Cardiovascular: RRR, no murmur, no edema Gastrointestinal (Abdomen): normal bowel sounds, soft, nontender, no hepatosplenomegaly Skin: the wound is dry, less redness, Neurologic: patellar DTR's 2+ bilat, sensation intact Psychiatric: Orientation: alert Results & Data ([facility]) Vital Signs (Past 12 Hours) Vital Signs Temp Pulse Pulse Resp BP Pulse Ox O2 Del Method 05/29/22 09:31 91 H 05/29/22 08:00 36.9 C 86 18 158/79 H 96 05/29/22 08:24 Room Air 05/29/22 04:25 37.1 C 83 18 165/82 H 97 Room Air Laboratory Results Abnormal lab results 05/28/22 05/29/22 05/29/22 Range/Units 21:55 06:41 06:41 WBC 14.91 H (4.8-10.8) K/ul RBC 3.46 L (3.93-5.22) M/uL Hgb 8.9 L (12.0-16.0) g/dl Hct 27.7 L (34.1-44.9) % RDW Coeff of Zeynep 16.1 H (11.5-14.5) % Absolute Nucleated RBC 0.05 H (0-0) K/uL Sodium 135 L (136-145) mmol/L Glucose 101 H (70-99(Fasting)) mg/dl POC Glucose 143 H (70-99) mg/dl Calcium 7.0 L (8.5-10.1) mg/dl 05/29/22 05/29/22 Range/Units 07:42 11:21 WBC (4.8-10.8) K/ul RBC (3.93-5.22) M/uL Hgb (12.0-16.0) g/dl Hct (34.1-44.9) % RDW Coeff of Zeynep (11.5-14.5) % Absolute Nucleated RBC (0-0) K/uL Sodium (136-145) mmol/L Glucose (70-99(Fasting)) mg/dl POC Glucose 100 H 145 H (70-99) mg/dl Calcium (8.5-10.1) mg/dl
--- NOTE | 2022-05-29 13:00 | Communication Note ---
Date of Service: May 29, 2022 case reviewed with outpatient psychiatrist Dr. Broderick as patient now hospitalized 1 week and has been consistently denying SI in hospital now that other medical concerns are being addressed. He has been treating her since Dr. 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 She hadn't expressed any SI recently and feels that the manner in which she took extra pills given that she has access to meds that would be potentially more problematic is a bit unusual. If she is not discharged to a supervised setting will need full safety plan to address medications prior to discharge. She has generally done well with Cymbalta and dose would be adjusted if needed. Will follow.
[2022-05-29] MEDS: DONEPEZIL HCL 10 MG TAB PO SCH (20:35)
[2022-05-29] MEDS: FLUTICASONE PROPIONATE NA SPR 16 GM BTL SCH (20:35)
[2022-05-29] MEDS: MONTELUKAST SODIUM 10 MG TABLET PO SCH (20:39)
--- NOTE | 2022-05-29 22:24 | Hospitalist Progress Note ---
Date of Service May 29, 2022 Assessment & Plan (1) Overdose of trazodone: Plan: patient expressed intentional overdose of trazodone found to be somnolent but arousable found to have WBC 34, lactic acidosis 7, Cr 2.35 (baseline 0.81), bicarb 19 Received IVF Poison control contacted recommended to monitor EKG for prolong QTC Psych on board 1 to 1 sitter discontinued but Pt cannot leave AMA if starting to show or making comment about suicidal, will put her back on Continue to hold psych medications for now (2) Sepsis: Plan: Bacteremia WBC on admission 34K, WBC continue trending down Elevated procalcitonin Blood cx positive for staph aureus, pseudomonas and alpha strep not strep pneumonia/ enterococcus Repeat blood cx no grow ID recommended to continue daptomycin; Zosyn discontinued and started on Cefepime and flagyl Echo showed no evidence of vegetation Buttock abscess S/P day #5 Debridement Right Buttock Abscess(Right) performed today by Dr. Amador culture from the wound grew staph aureus Continue current abx therapy with daptomycin, cefepime and flagyl Wound care nurse on board recommended daily dressing change wound care will evaluate for wound vac placement Continue monitor (3) Hyponatremia: Plan: likely due to decrease po intake and diarrhea Na on admission 121 Nephrology on board Na improved to 137 Clinically improves (4) Hypokalemia: Plan: K 3.6 today Continue monitor BMP (5) Lactic acidosis: Plan: likely related to acute overdose received IVF resolved (6) Leukocytosis: Plan: likely in the setting of acute overdose vs sepsis Continue IVF abx WBC 15K (7) Chronic pain: Plan: Continue to holding pain medications given overdose Will resume pain med and titrate when able Continue Tylenol prn (8) Diabetes mellitus, type II: Plan: Most recent hab1c 6.9 Continue to hold metformin pharmacy on board for glycemic management Continue monitor BS (9) Depression: Plan: Suicidal ideation leading to acute overdose case discussed with Psych Continue to hold psych medication Will discontinue to 1 sitter Cannot leave AMA Might need inpatient geriatric psych (10) Hypothyroidism: Plan: - continue levothyroxine (11) Anemia: Plan: Hgb 9.8 on presentation, baseline around 12 Hgb 9.1 today no signs of active bleeding Continue monitor H/H Plan DVT ppx: on Heparin subq Full Code Disposition Will discharbe once medically stable Admission and Anticipated Discharge Date Admission Date: May 22, 2022 Subjective Pt was seen and examined for follow up for buttock abscess Lying in bed with no acute distress Pt continues to have drainage from the right buttock incision Denies any hallucination, chest pain, palpitation, dizziness, fever and SOB Review of Systems Review of Systems: All systems reviewed & are unremarkable except as noted in Subjective Physical Exam Physical Exam: General- no acute distress Head- atraumatic Eyes- PERRL, EOMI, ENT- oropharynx clear Neck- supple, no JVD Lungs- clear to auscultation Heart- regular rhythm; no murmur Abdomen- normal bowel sounds, soft, nontender, right buttock tenderness and drainage Extremities- no calf tenderness Neuro- awake, dementia; PERRL, EOMI; no facial palsy; no dysarthria Skin- warm & dry Results & Data Results & Data ([facility]) Vital Signs (Past 12 Hours) Vital Signs Temp Pulse Pulse Pulse Resp BP Pulse Ox 05/29/22 19:01 37.9 C H 87 18 156/82 H 95 05/29/22 16:00 36.8 C 74 18 149/79 H 96 05/29/22 15:04 85 05/29/22 11:00 37.0 C 72 20 158/71 H 97 O2 Del Method 05/29/22 19:01 Room Air 05/29/22 16:00 05/29/22 15:04 05/29/22 11:00
[2022-05-30] MEDS: CEFEPIME 2,000 MG in SYRINGE 0 ML IV SCH ×3 (01:29→17:16)
[2022-05-30] MEDS: oxyCODONE HCL SOLN 5 MG/5 ML UDC PO PRN ×4 (02:55→23:50)
[2022-05-30] MEDS: LEVOTHYROXINE SODIUM 100 MCG TABLET PO SCH (05:51)
[2022-05-30] MEDS: DAPTOmycin 550 MG in SYRINGE 0 ML IV SCH (08:27)
[2022-05-30] MEDS: FIRST - Mouthwash BLM 119 ML PO SCH ×3 (08:27→23:52)
[2022-05-30] MEDS: MAGNESIUM OXIDE 400 MG TAB PO SCH (08:28)
[2022-05-30] MEDS: FOLIC ACID 400 MCG TAB PO SCH (08:28)
[2022-05-30] MEDS: PANTOprazole 40 MG TAB PO SCH (08:28)
[2022-05-30] MEDS: MEMANTINE HCL 10 MG TAB PO SCH ×2 (08:29→22:26)
[2022-05-30] MEDS: FLUTICASONE/VILANTEROL 200/25MCG 14 PUFFS/INHALER INH SCH (08:29)
[2022-05-30] MEDS: HEPARIN SOD 5,000 UNIT/0.5 ML VIAL SQ SCH ×2 (08:29→22:26)
[2022-05-30] MEDS: metroNIDAZOLE 500 MG TAB PO SCH ×3 (08:30→22:26)
[2022-05-30] MEDS: FAMOTIDINE 40 MG TABLET PO SCH ×2 (08:30→22:26)
[2022-05-30 08:43] LABS: Hematocrit (blood only) 29.5 % (34.1-44.9); Hemoglobin 9.4 g/dl (12.0-16.0); Mean Corpuscular Hemoglobin 25.3 pg (25.0-34.0); Mean Corpuscular Hgb Conc 31.9 g/dL (32.0-36.0); Mean Corpuscular Volume 79.3 fL (80.0-100.0); Mean Platelet Volume 9.7 fL (9.4-12.3); Nucleated RBC # (auto) 0.02 K/uL (0-0); Nucleated RBC % (auto) 0.1 %; Platelet Count 388 K/uL (130-400); RDW Coefficient of Variation 16.5 % (11.5-14.5); RDW Standard Deviation 47.2 fL (36.4-46.3); Red Blood Count 3.72 M/uL (3.93-5.22); White Blood Count 13.87 K/ul (4.8-10.8)
[2022-05-30 09:04] LABS: BUN Creatinine Ratio 18.3 (10-20); Calcium 7.3 mg/dl (8.5-10.1); Creatinine Clr Calc Pharmacy 90.5 ml/min; Est GFR (African American) 104.1 ml/min; Est GFR (Non-African American) 89.8 ml/min; Potassium 3.1 mmol/L (3.5-5.1)
[2022-05-30] MEDS: INSULIN ASPART PER UNIT SC SCH ×4 (09:26→22:36)
--- NOTE | 2022-05-30 11:57 | Surgery Progress Note ---
Date of Service May 30, 2022 Assessment & Plan (1) Abscess of buttock, right: Plan: pt is 76 year-old female who was admitted to ICU for Unresponsive episode, metabolic acidosis, hyponatremia IMP : abscess of right buttock, plan, I recommend to do I/D right buttock abscess, D/W benefits, risks and alternatives of the surgery, the risks- infection, sepsis, bleeding, recurrence, pt and her on the phone understood, they agree with surgery, pt's gave consent on phone, I answered all questions, 05/25/2022 1:[address] Amador F/U S/P Debridement Right Buttock Abscess, POD 1, wound culture, -Gram Stain Final 05/24/22 Gram Stain Result Moderate Gram Positive Cocci Many WBCs Seen Aero/Jennifer Cult Preliminary 05/25/22-1058 Organism 1 Staphylococcus species Quantity Moderate Sens Sensitivities to Follow doing fine, consult wound care nurse for packing change once every other day, pt may need wound VAC, continue iv antibiotic, will F/U 05/26/2022 12: 06Pm F/U S/P Debridement Right Buttock Abscess, POD 2 stable, continue iv antibiotic, senior front end engineer surgeon cover this weekend, Thanks, 05/29/2022 12: 06Pm F/U S/P Debridement Right Buttock Abscess, POD 5 stable, recommend to do wound VAC continue iv antibiotic, will F/U, 05/30/2022 11: 56Am F/U S/P Debridement Right Buttock Abscess, POD 6 stable, recommend to do wound VAC, correct low K, wound culture reviewed, continue iv antibiotic, will F/U, Admission and Anticipated Discharge Date Admission Date: May 22, 2022 Supervising Physician Co-Signing Physician Notes Patient seen and examined. EMR reviewed. Discussed on multidisciplinary rounds and with family practice resident. Agree with assessment plan as noted. Patient is clinically improved today. Her sensorium is much clearer. She is complaining of some pain in her backside and there now appears to be areas of purulence/microabscess formation. General surgery consult obtained with plans to take the patient to the OR today for I&D. We will continue current antibiotics pending deep cultures. Her sodium and acute kidney injury have resolved. Will use low-dose oxycodone for acute pain control. Chronic pain management may be an issue for her in the future. We will try and get her mobilized as much as possible given her buttock issues. Try and keep her off that area is much as possible. She will require physical therapy and Occupational Therapy evaluations at some point. Continue one-to-one given suicidal ideation and reported suicide attempt. Appreciate behavioral health assistance. She is not yet medically cleared. I think the patient is stable to transfer out of the intensive care unit. Will sign off at this point time unless the patient requires ICU level care postoperatively. Subjective Pt was seen and examined for follow up for buttock abscess Lying in bed with no acute distress Pt continues to have drainage from the right buttock incision Denies any hallucination, chest pain, palpitation, dizziness, fever and SOB 05/30/2022 11:53AM Dr. Amador F/U S/P I/D right buttock abscess, doing better,no fever, WBC 13,000, Physical Exam Constitutional: WD/WN, vitals as above Eyes: PERRL, conjunctivae normal, anicteric sclerae Neck: trachea midline, no thyromegaly Respiratory: normal respiratory effort, lungs clear to auscultation Cardiovascular: RRR, no murmur, no edema Gastrointestinal (Abdomen): normal bowel sounds, soft, nontender, no hepatosplenomegaly Skin: some redness around incision site, some drainage, Neurologic: patellar DTR's 2+ bilat, sensation intact Psychiatric: Orientation: alert Results & Data ([facility]) Vital Signs (Past 12 Hours) Vital Signs Temp Pulse Pulse Pulse Resp BP Pulse Ox 05/30/22 11:34 37.3 C 93 H 20 146/67 H 95 05/30/22 08:00 77 05/30/22 08:35 36.7 C 92 H 18 159/81 H 96 05/30/22 03:59 36.4 C L 87 18 150/70 H 98 O2 Del Method 05/30/22 11:34 Room Air 05/30/22 08:00 05/30/22 08:35 Room Air 05/30/22 03:59 Laboratory Results Abnormal lab results 05/29/22 05/30/22 05/30/22 Range/Units 16:37 07:37 08:02 WBC (4.8-10.8) K/ul RBC (3.93-5.22) M/uL Hgb (12.0-16.0) g/dl Hct (34.1-44.9) % MCV (80.0-100.0) fL MCHC (32.0-36.0) g/dL RDW Std Deviation (36.4-46.3) fL RDW Coeff of Zeynep (11.5-14.5) % Absolute Nucleated RBC (0-0) K/uL Potassium 3.1 L (3.5-5.1) mmol/L Glucose 131 H (70-99(Fasting)) mg/dl POC Glucose 274 H 116 H (70-99) mg/dl Calcium 7.3 L (8.5-10.1) mg/dl 05/30/22 05/30/22 Range/Units 08:02 11:21 WBC 13.87 H (4.8-10.8) K/ul RBC 3.72 L (3.93-5.22) M/uL Hgb 9.4 L (12.0-16.0) g/dl Hct 29.5 L (34.1-44.9) % MCV 79.3 L (80.0-100.0) fL MCHC 31.9 L (32.0-36.0) g/dL RDW Std Deviation 47.2 H (36.4-46.3) fL RDW Coeff of Zeynep 16.5 H (11.5-14.5) % Absolute Nucleated RBC 0.02 H (0-0) K/uL Potassium (3.5-5.1) mmol/L Glucose (70-99(Fasting)) mg/dl POC Glucose 235 H (70-99) mg/dl Calcium (8.5-10.1) mg/dl
[2022-05-30] MEDS ORDERED: POTASSIUM CHLORIDE PWD 20 MEQ PACK PO ONE (13:00)
[2022-05-30] MEDS: ACETAMINOPHEN 325 MG TAB PO PRN ×2 (14:44→22:24)
[2022-05-30] MEDS ORDERED: CHLORASEPTIC 1.4% SOLN 180 ML BTL MT PRN (20:08)
[2022-05-30] MEDS: DONEPEZIL HCL 10 MG TAB PO SCH (22:26)
[2022-05-30] MEDS: POTASSIUM CHLORIDE PWD 20 MEQ PACK PO SCH (22:26)
[2022-05-30] MEDS: FLUTICASONE PROPIONATE NA SPR 16 GM BTL SCH (22:26)
[2022-05-30] MEDS: MONTELUKAST SODIUM 10 MG TABLET PO SCH (22:26)
--- NOTE | 2022-05-30 23:44 | Hospitalist Progress Note ---
Date of Service May 30, 2022 Assessment & Plan (1) Overdose of trazodone: Plan: patient expressed intentional overdose of trazodone found to be somnolent but arousable found to have WBC 34, lactic acidosis 7, Cr 2.35 (baseline 0.81), bicarb 19 Received IVF Poison control contacted recommended to monitor EKG for prolong QTC Psych on board 1 to 1 sitter discontinued but Pt cannot leave AMA if starting to show or making comment about suicidal, will put her back on to Continue to hold psych medications for now Need to reach psych when to resume psych med (2) Sepsis: Plan: Bacteremia WBC on admission 34K, WBC continue trending down Elevated procalcitonin Blood cx positive for staph aureus, pseudomonas and alpha strep not strep pneumonia/ enterococcus Repeat blood cx no grow ID recommended to continue daptomycin; Zosyn discontinued and started on Cefepime and flagyl Echo showed no evidence of vegetation Buttock abscess S/P day #6 Debridement Right Buttock Abscess(Right) performed today by Dr. Amador culture from the wound grew staph aureus Continue current abx therapy with daptomycin, cefepime and flagyl Wound care nurse on board recommended daily dressing change wound care will evaluate for wound vac placement Follow up with ID for final abx when ready to discharge (3) Hyponatremia: Plan: likely due to decrease po intake and diarrhea Na on admission 121 Nephrology on board Na improved to 137 Clinically improves (4) Hypokalemia: Plan: K 3.1 today K replaced Continue monitor BMP (5) Lactic acidosis: Plan: likely related to acute overdose received IVF resolved (6) Leukocytosis: Plan: likely in the setting of acute overdose vs sepsis Continue IVF abx WBC continues trending down (7) Chronic pain: Plan: Continue to holding pain medications given overdose Will resume pain med and titrate when able Continue Tylenol prn (8) Diabetes mellitus, type II: Plan: Most recent hab1c 6.9 Continue to hold metformin pharmacy on board for glycemic management Continue monitor BS (9) Depression: Plan: Suicidal ideation leading to acute overdose case discussed with Psych Continue to hold psych medication Will discontinue 1 to 1 sitter Cannot leave AMA Might need inpatient geriatric psych (10) Hypothyroidism: Plan: - continue levothyroxine (11) Anemia: Plan: Hgb 9.8 on presentation, baseline around 12 Hgb 9.4 today no signs of active bleeding Continue monitor H/H Plan DVT ppx: on Heparin subq Full Code Disposition Will discharbe once medically stable Admission and Anticipated Discharge Date Admission Date: May 22, 2022 Subjective Pt was seen and examined for follow up for buttock abscess Lying in bed with no acute distress Pt continues to have drainage and pain from the right buttock incision Spoke to son over the phone provided with update and answered all the questions Denies any hallucination, chest pain, palpitation, dizziness, fever and SOB Review of Systems Review of Systems: All systems reviewed & are unremarkable except as noted in Subjective Physical Exam Physical Exam: General- no acute distress Head- atraumatic Eyes- PERRL, EOMI, ENT- oropharynx clear Neck- supple, no JVD Lungs- clear to auscultation Heart- regular rhythm; no murmur Abdomen- normal bowel sounds, soft, nontender, right buttock tenderness and drainage Extremities- no calf tenderness Neuro- awake, dementia; PERRL, EOMI; no facial palsy; no dysarthria Skin- warm & dry Results & Data Results & Data ([facility]) Vital Signs (Past 12 Hours) Vital Signs Temp Pulse Pulse Pulse Resp BP Pulse Ox 05/30/22 23:24 37.1 C 90 18 163/74 H 94 05/30/22 19:55 36.6 C 89 18 149/69 H 96 05/30/22 18:18 94 H 05/30/22 15:24 37.9 C H 96 H 16 163/70 H 96 05/30/22 14:40 37.9 C H 96 H 16 163/70 H 96 O2 Del Method 05/30/22 23:24 Room Air 05/30/22 19:55 Room Air 05/30/22 18:18 05/30/22 15:24 Room Air 05/30/22 14:40 Room Air
[2022-05-31] MEDS: CEFEPIME 2,000 MG in SYRINGE 0 ML IV SCH ×3 (02:28→17:13)
[2022-05-31] MEDS: ACETAMINOPHEN 325 MG TAB PO PRN ×3 (03:00→23:15)
[2022-05-31] MEDS: LEVOTHYROXINE SODIUM 100 MCG TABLET PO SCH (06:02)
[2022-05-31] MEDS: oxyCODONE HCL SOLN 5 MG/5 ML UDC PO PRN ×3 (06:02→19:32)
[2022-05-31 07:42] LABS: Hematocrit (blood only) 27.6 % (34.1-44.9); Mean Corpuscular Hemoglobin 25.4 pg (25.0-34.0); Mean Corpuscular Hgb Conc 32.6 g/dL (32.0-36.0); Mean Platelet Volume 9.8 fL (9.4-12.3); Platelet Count 392 K/uL (130-400); RDW Coefficient of Variation 16.3 % (11.5-14.5); RDW Standard Deviation 45.3 fL (36.4-46.3); Red Blood Count 3.54 M/uL (3.93-5.22); White Blood Count 10.02 K/ul (4.8-10.8)
[2022-05-31] MEDS: INSULIN ASPART PER UNIT SC SCH ×4 (07:50→20:25)
[2022-05-31] MEDS: FIRST - Mouthwash BLM 119 ML PO SCH ×2 (08:22→15:11)
[2022-05-31] MEDS: PANTOprazole 40 MG TAB PO SCH (08:23)
[2022-05-31] MEDS: MEMANTINE HCL 10 MG TAB PO SCH ×2 (08:23→20:25)
[2022-05-31] MEDS: FOLIC ACID 400 MCG TAB PO SCH (08:23)
[2022-05-31] MEDS: metroNIDAZOLE 500 MG TAB PO SCH ×3 (08:23→20:26)
[2022-05-31] MEDS: FAMOTIDINE 40 MG TABLET PO SCH ×2 (08:23→20:13)
[2022-05-31] MEDS: POTASSIUM CHLORIDE PWD 20 MEQ PACK PO SCH ×2 (08:24→20:27)
[2022-05-31] MEDS: FLUTICASONE/VILANTEROL 200/25MCG 14 PUFFS/INHALER INH SCH (08:24)
[2022-05-31] MEDS: HEPARIN SOD 5,000 UNIT/0.5 ML VIAL SQ SCH ×2 (08:25→20:17)
[2022-05-31 08:31] LABS: BUN Creatinine Ratio 15.8 (10-20); Calcium 7.3 mg/dl (8.5-10.1); Creatinine Clr Calc Pharmacy 92.1 ml/min; Est GFR (African American) 105.8 ml/min; Est GFR (Non-African American) 91.3 ml/min; Magnesium 1.3 mg/dl (1.7-2.4); Phosphorus 2.2 mg/dl (2.5-4.9); Potassium 2.6 mmol/L (3.5-5.1)
[2022-05-31] MEDS: DAPTOmycin 550 MG in SYRINGE 0 ML IV SCH (10:07)
[2022-05-31] MEDS ORDERED: POTASSIUM PHOS 3 MMOL/1 ML INFUSION IV STA (10:32)
--- NOTE | 2022-05-31 10:42 | Surgery Progress Note ---
Date of Service May 31, 2022 Assessment & Plan (1) Abscess of buttock, right: Plan: pt is 76 year-old female who was admitted to ICU for Unresponsive episode, metabolic acidosis, hyponatremia IMP : abscess of right buttock, plan, I recommend to do I/D right buttock abscess, D/W benefits, risks and alternatives of the surgery, the risks- infection, sepsis, bleeding, recurrence, pt and her on the phone understood, they agree with surgery, pt's gave consent on phone, I answered all questions, 05/25/2022 1:[address] Amador F/U S/P Debridement Right Buttock Abscess, POD 1, wound culture, -Gram Stain Final 05/24/22 Gram Stain Result Moderate Gram Positive Cocci Many WBCs Seen Aero/Jennifer Cult Preliminary 05/25/22-1058 Organism 1 Staphylococcus species Quantity Moderate Sens Sensitivities to Follow doing fine, consult wound care nurse for packing change once every other day, pt may need wound VAC, continue iv antibiotic, will F/U 05/26/2022 12: 06Pm F/U S/P Debridement Right Buttock Abscess, POD 2 stable, continue iv antibiotic, paper production engineer surgeon cover this weekend, Thanks, 05/29/2022 12: 06Pm F/U S/P Debridement Right Buttock Abscess, POD 5 stable, recommend to do wound VAC continue iv antibiotic, will F/U, 05/30/2022 11: 56Am F/U S/P Debridement Right Buttock Abscess, POD 6 stable, recommend to do wound VAC, correct low K, wound culture reviewed, continue iv antibiotic, will F/U, 05/31/2022 10:40Am F/U S/P Debridement Right Buttock Abscess, POD 7 stable, recommend to do wound VAC, correct low K, wound culture reviewed, continue iv antibiotic, F/U [facility] wound care center after pt is discharged, sign off today, please call with questions, Thanks, Admission and Anticipated Discharge Date Admission Date: May 22, 2022 Supervising Physician Co-Signing Physician Notes Patient seen and examined. EMR reviewed. Discussed on multidisciplinary rounds and with family practice resident. Agree with assessment plan as noted. Patient is clinically improved today. Her sensorium is much clearer. She is complaining of some pain in her backside and there now appears to be areas of purulence/microabscess formation. General surgery consult obtained with plans to take the patient to the OR today for I&D. We will continue current antibiotics pending deep cultures. Her sodium and acute kidney injury have resolved. Will use low-dose oxycodone for acute pain control. Chronic pain management may be an issue for her in the future. We will try and get her mobilized as much as possible given her buttock issues. Try and keep her off that area is much as possible. She will require physical therapy and Occupational Therapy evaluations at some point. Continue one-to-one given suicidal ideation and reported suicide attempt. Appreciate behavioral health assistance. She is not yet medically cleared. I think the patient is stable to transfer out of the intensive care unit. Will sign off at this point time unless the patient requires ICU level care postoperatively. Subjective Pt was seen and examined for follow up for buttock abscess Lying in bed with no acute distress Pt continues to have drainage and pain from the right buttock incision Spoke to son over the phone provided with update and answered all the questions Denies any hallucination, chest pain, palpitation, dizziness, fever and SOB 05/31/2022 10:37AM Dr. Amador F/U S/P I/d right buttock abscess, pt feels better, no pain on wound site, WBC 10,000, no fever Physical Exam 2 Constitutional: WD/WN, vitals as above Eyes: PERRL, conjunctivae normal, anicteric sclerae Neck: trachea midline, no thyromegaly Respiratory: normal respiratory effort, lungs clear to auscultation Cardiovascular: RRR, no murmur, no edema Gastrointestinal (Abdomen): normal bowel sounds, soft, nontender, no hepatosplenomegaly Skin: less redness around the wound, minimal drainage, no tenderness, Neurologic: patellar DTR's 2+ bilat, sensation intact Psychiatric: Orientation: alert Results & Data ([facility]) Vital Signs (Past 12 Hours) Vital Signs Temp Pulse Resp BP Pulse Ox O2 Del Method 05/31/22 06:50 37.2 C 94 H 20 146/81 H 96 Room Air 05/31/22 02:55 37.0 C 92 H 18 157/83 H 94 Room Air 05/30/22 23:24 37.1 C 90 18 163/74 H 94 Room Air Laboratory Results Abnormal lab results 05/30/22 05/30/22 05/30/22 Range/Units 11:21 16:39 20:11 RBC (3.93-5.22) M/uL Hgb (12.0-16.0) g/dl Hct (34.1-44.9) % MCV (80.0-100.0) fL RDW Coeff of Zeynep (11.5-14.5) % Potassium (3.5-5.1) mmol/L Creatinine (0.6-1.2) mg/dl Glucose (70-99(Fasting)) mg/dl POC Glucose 235 H 112 H 124 H (70-99) mg/dl Calcium (8.5-10.1) mg/dl Phosphorus (2.5-4.9) mg/dl Magnesium (1.7-2.4) mg/dl 05/30/22 05/31/22 05/31/22 Range/Units 22:16 07:11 07:11 RBC 3.54 L (3.93-5.22) M/uL Hgb 9.0 L (12.0-16.0) g/dl Hct 27.6 L (34.1-44.9) % MCV 78.0 L (80.0-100.0) fL RDW Coeff of Zeynep 16.3 H (11.5-14.5) % Potassium 2.6 L (3.5-5.1) mmol/L Creatinine 0.57 L (0.6-1.2) mg/dl Glucose 164 H (70-99(Fasting)) mg/dl POC Glucose 244 H (70-99) mg/dl Calcium 7.3 L (8.5-10.1) mg/dl Phosphorus 2.2 L (2.5-4.9) mg/dl Magnesium 1.3 L (1.7-2.4) mg/dl 05/31/22 Range/Units 07:15 RBC (3.93-5.22) M/uL Hgb (12.0-16.0) g/dl Hct (34.1-44.9) % MCV (80.0-100.0) fL RDW Coeff of Zeynep (11.5-14.5) % Potassium (3.5-5.1) mmol/L Creatinine (0.6-1.2) mg/dl Glucose (70-99(Fasting)) mg/dl POC Glucose 169 H (70-99) mg/dl Calcium (8.5-10.1) mg/dl Phosphorus (2.5-4.9) mg/dl Magnesium (1.7-2.4) mg/dl
[2022-05-31] MEDS: MAGNESIUM SULFATE / D5W 1 GM/100 ML BAG IV SCH ×2 (10:59→13:22)
[2022-05-31] MEDS ORDERED: POTASSIUM PHOSPHATE 24 MMOL in SODIUM CHLORIDE 0.9% 500 ML IV ONE (11:00)
[2022-05-31] MEDS: FLUCONAZOLE 50 MG TAB PO SCH (16:03)
--- NOTE | 2022-05-31 16:27 | Hospitalist Progress Note ---
Date of Service May 31, 2022 Assessment & Plan (1) Overdose of trazodone: Plan: patient expressed intentional overdose of trazodone found to be somnolent but arousable found to have WBC 34, lactic acidosis 7, Cr 2.35 (baseline 0.81), bicarb 19 Received IVF Poison control contacted recommended to monitor EKG for prolong QTC Psych on board-appreciate input and recommendation 1 to 1 sitter discontinued but Pt cannot leave AMA Continue to hold psych medications for now Need to reach psych when to resume psych med Oral thrush Has been having pain with swallowing and also chewing Received diclofenac on 150 mg daily x3 days in the past for oral thrush Will give the same for now Ongoing diarrhea C. difficile toxin has been negative Likely secondary to use of antibiotic Will try Imodium (2) Sepsis: Plan: Bacteremia-the source being buttock abscess as below WBC on admission 34K, WBC continue trending down Elevated procalcitonin Blood cx positive for staph aureus, pseudomonas and alpha strep not strep pneumonia/ enterococcus Repeat blood cx no grow ID recommended to continue daptomycin; Zosyn discontinued and started on Cefepime and flagyl Echo showed no evidence of vegetation Buttock abscess S/P day #7 Debridement Right Buttock Abscess(Right) performed today by Dr. Amador culture from the wound grew staph aureus Continue current abx therapy with daptomycin, cefepime and flagyl Wound care nurse on board recommended daily dressing change wound care will evaluate for wound vac placement Follow up with ID for final abx when ready to discharge Clinically better and has been getting wound VAC to protect the wound from soiling (3) Hyponatremia: Plan: likely due to decrease po intake and diarrhea Na on admission 121 Nephrology on board Na improved to 137 Clinically improves-sodium level is now 138 as of 05/31/2022 (4) Hypokalemia: Plan: K 3.1 today K replaced Continue monitor BMP Likely secondary to ongoing diarrhea-we will supplement (5) Lactic acidosis: Plan: likely related to acute overdose received IVF resolved (6) Leukocytosis: Plan: likely in the setting of acute overdose vs sepsis Continue IVF abx WBC continues trending down (7) Chronic pain: Plan: Continue to holding pain medications given overdose Will resume pain med and titrate when able Continue Tylenol prn (8) Diabetes mellitus, type II: Plan: Most recent hab1c 6.9 Continue to hold metformin pharmacy on board for glycemic management Continue monitor BS (9) Depression: Plan: Suicidal ideation leading to acute overdose case discussed with Psych Continue to hold psych medication Will discontinue 1 to 1 sitter Cannot leave AMA Might need inpatient geriatric psych (10) Hypothyroidism: Plan: - continue levothyroxine (11) Anemia: Plan: Hgb 9.8 on presentation, baseline around 12 Hgb 9.4 today no signs of active bleeding Continue monitor H/H Plan DVT ppx: on Heparin subq Full Code Disposition Will discharbe once medically stable Admission and Anticipated Discharge Date Admission Date: May 22, 2022 Subjective 05/31/2022 The patient was seen and examined in telemetry unit She has been complaining of sore mouth due to candidiasis Denies any other significant symptoms She has had diclofenac 150 mg daily for 3 days for this kind of candidiasis from her PCP Has been having diarrhea Review of Systems Review of Systems: All systems reviewed and are unremarkable except as noted below Physical Exam Physical Exam: Lying in bed comfortably Constitutional: well developed, well nourished and + ill appearing Eyes: PERRL, conjunctivae normal, anicteric sclerae ENMT: external ear and nose normal, oropharynx normal Neck: trachea midline, no thyromegaly Respiratory: no respiratory distress Auscultation: lungs clear to auscultation bilaterally Cardiovascular: Rate/Rhythm: regular rate and regular rhythm; not tachycardic Heart Sounds: normal S1 and normal S2; no murmur Extremities: + edema (Trace edema bilaterally) Gastrointestinal (Abdomen): Inspection/Auscultation: normal bowel sounds; abdomen not distended Percussion/Palpation: abdomen soft; abdomen nontender Musculoskeletal: No acute arthritis in any joint Results & Data Results & Data ([facility]) Vital Signs (Past 12 Hours) Vital Signs Temp Pulse Pulse Pulse Resp BP Pulse Ox 05/31/22 15:36 92 H 05/31/22 08:00 87 05/31/22 11:33 36.9 C 94 H 20 150/75 H 96 05/31/22 06:50 37.2 C 94 H 20 146/81 H 96 O2 Del Method 05/31/22 15:36 05/31/22 08:00 05/31/22 11:33 Room Air 05/31/22 06:50 Room Air Laboratory Results Short CBC 05/31/22 Range/Units 07:11 WBC 10.02 (4.8-10.8) K/ul Hgb 9.0 L (12.0-16.0) g/dl Hct 27.6 L (34.1-44.9) % Plt Count 392 (130-400) K/uL [facility] 05/31/22 07:11 Sodium 138 Potassium 2.6 L Chloride 103 Carbon Dioxide 27 BUN 9 Creatinine 0.57 L Glucose 164 H Calcium 7.3 L Medications Administered Current Inpatient Medications Acetaminophen (Acetaminophen 325 Mg Tab) 650 mg PO Q4H PRN PRN Reason: Pain or Fever Stop: 06/23/22 01:06 Last Admin: 05/31/22 11:31 Dose: 650 mg Albuterol (Albuterol Hfa 8 Gm Inhaler) 2 puffs INH Q4H PRN PRN Reason: SHORT OF BREATH Stop: 06/21/22 08:46 Albuterol (Albuterol 0.083% Nebu Soln 3 Ml Vial) 2.5 mg INH ONCE PRN; Protocol PRN Reason: SOB/WHEEZING Stop: 06/21/22 08:24 Dextrose (Dextrose 50% 50 Ml Syringe) 25 - 50 ml IV UD PRN; Protocol PRN Reason: Hypoglycemia Protocol Stop: 06/21/22 21:49 Last Admin: 05/22/22 21:58 Dose: 25 ml Donepezil HCl (Donepezil Hcl 10 Mg Tab) 10 mg PO HS SARAI Stop: 06/21/22 20:59 Last Admin: 05/30/22 22:26 Dose: 10 mg Famotidine (Famotidine 40 Mg Tablet) 40 mg PO BID SARAI Stop: 06/21/22 08:59 Last Admin: 05/31/22 08:23 Dose: 40 mg Fluconazole (Fluconazole 50 Mg Tab) 150 mg PO DAILY SARAI Stop: 06/02/22 09:01 Last Admin: 05/31/22 16:03 Dose: 150 mg Fluticasone Propionate (Fluticasone Propionate Na Spr 16 Gm Btl) 2 sprays NA HS SARAI Stop: 06/21/22 20:59 Last Admin: 05/30/22 22:26 Dose: 2 sprays Fluticasone/Vilanterol (Fluticasone/Vilanterol 200/25mcg 14 Puffs/Inhaler) 1 puffs INH DAILY SARAI Stop: 06/21/22 08:59 Last Admin: 05/31/22 08:24 Dose: 1 puffs Folic Acid (Folic Acid 400 Mcg Tab) 800 mcg PO QAM SARAI Stop: 06/21/22 08:59 Last Admin: 05/31/22 08:23 Dose: 800 mcg Glucagon (Glucagon For Inj 1 Mg Vial) 1 mg SQ UD PRN; Protocol PRN Reason: Hypoglycemia Protocol Stop: 06/21/22 21:49 Glucose (Glucose 40% Gel 15 Gm Tube) 15 - 30 gm PO UD PRN; Protocol PRN Reason: Hypoglycemia Protocol Stop: 06/21/22 21:49 Glucose (Glucose 10 Tab/Tube) 4 - 8 tab PO UD PRN; Protocol PRN Reason: Hypoglycemia Treatment Stop: 06/21/22 21:49 Heparin Sodium (Porcine) (Heparin Sod 5,000 Unit/0.5 Ml Vial) 5,000 units SQ Q12 SARAI Stop: 06/22/22 20:59 Last Admin: 05/31/22 08:25 Dose: 5,000 units Daptomycin 550 mg/ Syringe 11 mls @ 5.5 mls/min IV Q24H SARAI; Protocol Stop: 06/06/22 08:29 Last Admin: 05/31/22 10:07 Dose: 5.5 mls/min Cefepime HCl 2,000 mg/ Syringe 20 mls @ 5 mls/min IV Q8H SARAI; Protocol Stop: 06/09/22 09:59 Last Admin: 05/31/22 10:07 Dose: 5 mls/min Insulin Aspart (Insulin Aspart Per Unit) 0 units SC ACHS SARAI Stop: 06/21/22 08:24 Last Admin: 05/31/22 11:39 Dose: 13 units Levothyroxine Sodium (Levothyroxine Sodium 100 Mcg Tablet) 100 mcg PO DAILYBB SARAI Stop: 06/21/22 08:59 Last Admin: 05/31/22 06:02 Dose: 100 mcg Loperamide HCl (Loperamide Hcl 2 Mg Cap) 2 mg PO Q6H PRN PRN Reason: Diarrhea Stop: 06/29/22 20:07 Magnesium Oxide (Magnesium Oxide 400 Mg Tab) 400 mg PO Q2D@0900 SARAI Stop: 06/21/22 08:59 Last Admin: 05/30/22 08:28 Dose: 400 mg Memantine (Memantine Hcl 10 Mg Tab) 10 mg PO BID SARAI Stop: 06/22/22 08:59 Last Admin: 05/31/22 08:23 Dose: 10 mg Metronidazole (Metronidazole 500 Mg Tab) 500 mg PO TID SARAI Stop: 06/09/22 13:59 Last Admin: 05/31/22 15:10 Dose: 500 mg Miscellaneous (Carbohydrates For Hypoglycemia ) 15 - 30 gm PO UD PRN PRN Reason: Hypoglycemia Protocol Stop: 06/21/22 21:49 Montelukast Sodium (Montelukast Sodium 10 Mg Tablet) 10 mg PO HS [facility] Stop: 06/21/22 20:59 Last Admin: 05/30/22 22:26 Dose: 10 mg Multi-Ingredient Mouthwash/Gargle (First - Mouthwash Blm 119 Ml) 5 ml PO Q8H SARAI Stop: 06/26/22 07:59 Last Admin: 05/31/22 15:11 Dose: 5 ml Oxycodone HCl (Oxycodone Hcl Soln 5 Mg/5 Ml Udc) 5 mg PO Q6H PRN PRN Reason: Pain Stop: 06/07/22 08:27 Last Admin: 05/31/22 12:07 Dose: 5 mg Pantoprazole Sodium (Pantoprazole 40 Mg Tab) 40 mg PO QAM SARAI Stop: 06/22/22 08:59 Last Admin: 05/31/22 08:23 Dose: 40 mg Phenol (Chloraseptic 1.4% Soln 180 Ml Btl) 2 sprays MT Q6H PRN PRN Reason: Sore Throat Stop: 06/29/22 20:07 Potassium Chloride (Potassium Chloride Pwd 20 Meq Pack) 20 meq PO BID SARAI Stop: 06/29/22 20:59 Last Admin: 05/31/22 08:24 Dose: 20 meq Sodium Chloride (Sodium Chloride 0.65% Na Soln 45 Ml ([place])) 1 sprays NA Q6H PRN PRN Reason: Congestion Stop: 06/26/22 16:18 Last Admin: 05/29/22 04:03 Dose: 1 sprays
[2022-05-31] MEDS: DONEPEZIL HCL 10 MG TAB PO SCH (20:12)
[2022-05-31] MEDS: FLUTICASONE PROPIONATE NA SPR 16 GM BTL SCH (20:15)
[2022-05-31] MEDS: MONTELUKAST SODIUM 10 MG TABLET PO SCH (20:27)
[2022-05-31] MEDS: POTASSIUM CHLORIDE / WTR 10 MEQ/100 ML PLCT IV SCH ×2 (20:50→22:03)
[2022-06-01] MEDS: FIRST - Mouthwash BLM 119 ML PO SCH ×3 (01:06→17:53)
[2022-06-01] MEDS: CEFEPIME 2,000 MG in SYRINGE 0 ML IV SCH ×3 (01:08→17:57)
[2022-06-01] MEDS: oxyCODONE HCL SOLN 5 MG/5 ML UDC PO PRN ×5 (01:35→23:29)
[2022-06-01] MEDS: LEVOTHYROXINE SODIUM 100 MCG TABLET PO SCH (05:49)
[2022-06-01 07:33] LABS: Basophils # (auto) 0.06 K/uL (0-0.2); Basophils % (auto) 0.7 %; Eosinophils % (auto) 1.1 %; Hematocrit (blood only) 27.3 % (34.1-44.9); Hemoglobin 8.9 g/dl (12.0-16.0); Immature Granulocytes % (auto) 2.3 %; Lymphocytes # (auto) 1.39 K/uL (1.2-3.4); Lymphocytes % (auto) 15.7 %; Mean Corpuscular Hemoglobin 25.9 pg (25.0-34.0); Mean Corpuscular Hgb Conc 32.6 g/dL (32.0-36.0); Mean Corpuscular Volume 79.4 fL (80.0-100.0); Mean Platelet Volume 9.9 fL (9.4-12.3); Monocytes # (auto) 0.91 K/uL (0.24-0.82); Monocytes % (auto) 10.3 %; Neutrophils # (auto) 6.18 K/uL (1.4-6.5); Neutrophils % (auto) 69.9 %; Platelet Count 424 K/uL (130-400); RDW Coefficient of Variation 16.9 % (11.5-14.5); RDW Standard Deviation 47.3 fL (36.4-46.3); Red Blood Count 3.44 M/uL (3.93-5.22); White Blood Count 8.84 K/ul (4.8-10.8)
[2022-06-01] MEDS: LOPERAMIDE HCL 2 MG CAP PO PRN (07:50)
[2022-06-01 07:58] LABS: BUN Creatinine Ratio 12.7 (10-20); Calcium 7.5 mg/dl (8.5-10.1); Creatinine Clr Calc Pharmacy 96.3 ml/min; Est GFR (African American) 107.1 ml/min; Est GFR (Non-African American) 92.4 ml/min; Magnesium 1.5 mg/dl (1.7-2.4); Phosphorus 2.3 mg/dl (2.5-4.9)
[2022-06-01] MEDS ORDERED: POTASSIUM PHOS 3 MMOL/1 ML INFUSION IV STA (08:11)
[2022-06-01] MEDS ORDERED: POTASSIUM CHLORIDE CRTAB 20 MEQ TABCR PO STA (08:14)
[2022-06-01] MEDS ORDERED: POTASSIUM PHOSPHATE 30 MMOL in SODIUM CHLORIDE 0.9% 500 ML IV ONE (08:30)
[2022-06-01] MEDS: INSULIN ASPART PER UNIT SC SCH ×4 (09:10→22:16)
[2022-06-01] MEDS: FLUTICASONE/VILANTEROL 200/25MCG 14 PUFFS/INHALER INH SCH (09:11)
[2022-06-01] MEDS: FAMOTIDINE 40 MG TABLET PO SCH ×2 (09:11→20:29)
[2022-06-01] MEDS: FLUCONAZOLE 50 MG TAB PO SCH (09:12)
[2022-06-01] MEDS: HEPARIN SOD 5,000 UNIT/0.5 ML VIAL SQ SCH ×2 (09:13→20:30)
[2022-06-01] MEDS: FOLIC ACID 400 MCG TAB PO SCH (09:13)
[2022-06-01] MEDS: PANTOprazole 40 MG TAB PO SCH (09:14)
[2022-06-01] MEDS: MEMANTINE HCL 10 MG TAB PO SCH ×2 (09:14→20:29)
[2022-06-01] MEDS: POTASSIUM CHLORIDE PWD 20 MEQ PACK PO SCH ×2 (09:14→20:28)
[2022-06-01] MEDS: metroNIDAZOLE 500 MG TAB PO SCH ×3 (09:14→20:30)
[2022-06-01] MEDS: MAGNESIUM OXIDE 400 MG TAB PO SCH (09:14)
[2022-06-01] MEDS: ACETAMINOPHEN 325 MG TAB PO PRN (11:08)
[2022-06-01] MEDS: MAGNESIUM SULFATE / D5W 1 GM/100 ML BAG IV SCH ×2 (11:12→14:23)
[2022-06-01] MEDS: DAPTOmycin 550 MG in SYRINGE 0 ML IV SCH (11:12)
--- NOTE | 2022-06-01 14:35 | Hospitalist Progress Note ---
Date of Service June 01, 2022 Assessment & Plan (1) Overdose of trazodone: Plan: patient expressed intentional overdose of trazodone found to be somnolent but arousable found to have WBC 34, lactic acidosis 7, Cr 2.35 (baseline 0.81), bicarb 19 Received IVF Poison control contacted recommended to monitor EKG for prolong QTC Psych on board-appreciate input and recommendation 1 to 1 sitter discontinued but Pt cannot leave AMA Continue to hold psych medications for now Need to reach psych when to resume psych med Oral thrush Has been having pain with swallowing and also chewing Received diclofenac on 150 mg daily x3 days in the past for oral thrush Will give the same for now Her mouth ulceration has been improving Ongoing diarrhea C. difficile toxin has been negative Likely secondary to use of antibiotic Will try Imodium and may need to add Bentyl C. difficile toxin has been negative again on 06/01/2022 Has rectal tube in place to prevent contamination of the sacral wound (2) Sepsis: Plan: Bacteremia-the source being buttock abscess as below WBC on admission 34K, WBC continue trending down Elevated procalcitonin Blood cx positive for staph aureus, pseudomonas and alpha strep not strep pneumonia/ enterococcus Repeat blood cx no grow ID recommended to continue daptomycin; Zosyn discontinued and started on Cefepime and flagyl Echo showed no evidence of vegetation Buttock abscess S/P day #8 Debridement Right Buttock Abscess(Right) performed today by Dr. Amador culture from the wound grew staph aureus Continue current abx therapy with daptomycin, cefepime and flagyl Wound care nurse on board recommended daily dressing change wound care will evaluate for wound vac placement Follow up with ID for final abx when ready to discharge Rectal tube in situ (3) Hyponatremia: Plan: likely due to decrease po intake and diarrhea Na on admission 121 Nephrology on board Na improved to 137 Clinically improves-sodium level is now 138 as of 05/31/2022 (4) Hypokalemia: Plan: K 3.1 today K replaced Continue monitor BMP Likely secondary to ongoing diarrhea-we will supplement (5) Lactic acidosis: Plan: likely related to acute overdose received IVF resolved (6) Leukocytosis: Plan: likely in the setting of acute overdose vs sepsis Continue IVF abx WBC continues trending down (7) Chronic pain: Plan: Continue to holding pain medications given overdose Will resume pain med and titrate when able Continue Tylenol prn (8) Diabetes mellitus, type II: Plan: Most recent hab1c 6.9 Continue to hold metformin pharmacy on board for glycemic management Continue monitor BS (9) Depression: Plan: Suicidal ideation leading to acute overdose case discussed with Psych Continue to hold psych medication Will discontinue 1 to 1 sitter Cannot leave AMA Might need inpatient geriatric psych (10) Hypothyroidism: Plan: - continue levothyroxine (11) Anemia: Plan: Hgb 9.8 on presentation, baseline around 12 Hgb 9.4 today no signs of active bleeding Continue monitor H/H Plan DVT ppx: on Heparin subq Full Code Disposition Will discharbe once medically stable Admission and Anticipated Discharge Date Admission Date: May 22, 2022 Subjective 05/31/2022 The patient was seen and examined in telemetry unit She has been complaining of sore mouth due to candidiasis Denies any other significant symptoms She has had diclofenac 150 mg daily for 3 days for this kind of candidiasis from her PCP Has been having diarrhea 06/01/2022 The patient was seen and examined in telemetry unit She continues to have diarrhea and complains of more pain in the sacral wound area Denies any chest pain, shortness of breath or palpitation She is not requiring any more one-to-one sitter Review of Systems Review of Systems: All systems reviewed and are unremarkable except as noted below Physical Exam Physical Exam: Lying in bed comfortably Constitutional: well developed, well nourished and + ill appearing Eyes: PERRL, conjunctivae normal, anicteric sclerae ENMT: external ear and nose normal, oropharynx normal Neck: trachea midline, no thyromegaly Respiratory: no respiratory distress Auscultation: lungs clear to auscultation bilaterally Cardiovascular: Rate/Rhythm: regular rate and regular rhythm; not tachycardic Heart Sounds: normal S1 and normal S2; no murmur Extremities: + edema (Trace edema bilaterally) Gastrointestinal (Abdomen): Inspection/Auscultation: normal bowel sounds; abdomen not distended Percussion/Palpation: abdomen soft; abdomen nontender Musculoskeletal: No acute arthritis in any joint Neurologic: normal touch/pain/proprioception and moves all extremities; no focal motor deficits Lymphatic: no cervical or axillary lymphadenopathy Results & Data Results & Data ([facility]) Vital Signs (Past 12 Hours) Vital Signs Temp Pulse Pulse Pulse Resp BP Pulse Ox 06/01/22 08:00 06/01/22 08:00 91 H 06/01/22 08:09 37.0 C 94 H 18 153/69 H 97 06/01/22 02:56 37.0 C 91 H 17 155/83 H 94 O2 Del Method 06/01/22 08:00 Room Air 06/01/22 08:00 06/01/22 08:09 Room Air 06/01/22 02:56 Room Air
[2022-06-01] MEDS ORDERED: oxyCODONE HCL SOLN 5 MG/5 ML UDC PO PRN (15:00)
--- NOTE | 2022-06-01 15:16 | Psychiatric Progress Note ---
Date of Service June 01, 2022 Impression / Recommendations Impression This is a 76 yo s/p trazodone OD, outpatient providers concerned about some degree of vascular dementia perhaps contributing to impulsivity though ultimately dx delirium/sepsis. 06/01/22: improving, continues to deny SI (1) Overdose of trazodone: (2) Depression: (3) Chronic pain: Plan restart Buspar 5 mg TID prn given hx of anxiety/sleep issues and need to restart multiple meds, continue to hold Wellbutrin SR 100 mg BID Cymbalta restart 30 mg po qam (patient preference over trial Remeron) Lamictal 100 mg this hs and retitrate to 150 mg daily upon discharge. Interval History Identifying Information 76 yo woman who lives in [place] with her admitted medically follo wing intentional ingestion. Psychiatry consulted for recommendations. Chief Complaint "things happen for a reason, let Dr. Broderick know that I didn't break my word." Review of Systems Notes see above, no N/V, no SI/HI/cline. slept 3 hrs continuously overnight. Subjective Subjective Patient was seen & assessed and interval progress reviewed with nursing and briefly Dr. Seth. Patient is referring to safety plan that she had with Dr. Broderick. She feels that taking the extra trazodone was part of her delirium/sepsis though admits that she was despondent. Discussed my interaction with Dr. Delgado and offered restart Cymbalta vs. trial Remeron and she prefers the latter. Feels that her sleep is improving as her pain/itching improve. She voiced good understanding of risks of Eliseo's eric rash as now off of lamictal 8-9 days. She does not want to retitrate so reviewed compromise on dosing. She has start/stop before without problem. Doesn't feel that she needs her buspar here, discussed making prn so follows her to rehab setting. Procedures Performed Operation Date: 05/24/22 10:45 Actual Procedures p Debridement Right Buttock Abscess(Right) - Sarah Amador MD Physical Exam Psychiatric Orientation: alert and cooperative Apperance: + disheveled Eye Contact: + fair eye contact Speech: normal rate/rhythm/volume of speech Affect: + constricted affect Mood: no depressed mood (still with physical pain ) and no anxious mood Thought Process: clear/coherent thought process Thought Content: reality based without delusions Suicidal Thoughts: denies suicidal thoughts, denies suicidal plan and denies suicidal intent Homicidal Thoughts: denies homicidal thoughts Hallucinations: no auditory hallucinations and no visual hallucinations Cognition: recent memory grossly intact, remote memory grossly intact, attention grossly intact and language grossly intact Estimated Intelligence: consistent with education level Insight: + fair insight Vital Signs (Past 24 Hours) Last Vital Signs Temp 37.0 C 06/01/22 08:09 Pulse 94 H 06/01/22 08:09 Resp 18 06/01/22 08:09 BP 153/69 H 06/01/22 08:09 Pulse Ox 97 06/01/22 08:09 O2 Del Method 06/01/22 08:09 O2 Flow Rate 2 05/26/22 07:00 Results & Data ([facility]) Laboratory Results Laboratory Results - last 24 hr 05/31/22 05/31/22 06/01/22 16:25 20:19 04:00 WBC RBC Hgb Hct MCV MCH MCHC RDW Std Deviation RDW Coeff of Zeynep Plt Count MPV Immature Gran % (Auto) Neut % (Auto) Lymph % (Auto) O'Brien % (Auto) Eos % (Auto) Baso % (Auto) Neut # (Auto) Lymph # (Auto) O'Brien # (Auto) Eos # (Auto) Baso # (Auto) Immature Gran # (Auto) Sodium Potassium Chloride Carbon Dioxide Anion Gap BUN Creatinine Est Cr Clr Drug Dosing Est GFR ( Amer) Est GFR (Non-Af Amer) BUN/Creatinine Ratio Glucose POC Glucose 233 H 191 H Calcium Phosphorus Magnesium Stl C. diff Tox B Gene Negative Cdiff Gene 06/01/22 06/01/22 06/01/22 06:53 06:53 07:40 WBC 8.84 RBC 3.44 L Hgb 8.9 L Hct 27.3 L MCV 79.4 L MCH 25.9 MCHC 32.6 RDW Std Deviation 47.3 H RDW Coeff of Zeynep 16.9 H Plt Count 424 H MPV 9.9 Immature Gran % (Auto) 2.3 Neut % (Auto) 69.9 Lymph % (Auto) 15.7 O'Brien % (Auto) 10.3 Eos % (Auto) 1.1 Baso % (Auto) 0.7 Neut # (Auto) 6.18 Lymph # (Auto) 1.39 O'Brien # (Auto) 0.91 H Eos # (Auto) 0.10 Baso # (Auto) 0.06 Immature Gran # (Auto) 0.20 H Sodium 138 Potassium 3.0 L Chloride 102 Carbon Dioxide 32 Anion Gap 4 BUN 7 Creatinine 0.55 L Est Cr Clr Drug Dosing 96.3 Est GFR ( Amer) 107.1 Est GFR (Non-Af Amer) 92.4 BUN/Creatinine Ratio 12.7 Glucose 185 H POC Glucose 179 H Calcium 7.5 L Phosphorus 2.3 L Magnesium 1.5 L Stl C. diff Tox B Gene 06/01/22 11:59 WBC RBC Hgb Hct MCV MCH MCHC RDW Std Deviation RDW Coeff of Zeynep Plt Count MPV Immature Gran % (Auto) Neut % (Auto) Lymph % (Auto) O'Brien % (Auto) Eos % (Auto) Baso % (Auto) Neut # (Auto) Lymph # (Auto) O'Brien # (Auto) Eos # (Auto) Baso # (Auto) Immature Gran # (Auto) Sodium Potassium Chloride Carbon Dioxide Anion Gap BUN Creatinine Est Cr Clr Drug Dosing Est GFR ( Amer) Est GFR (Non-Af Amer) BUN/Creatinine Ratio Glucose POC Glucose 235 H Calcium Phosphorus Magnesium Stl C. diff Tox B Gene Current Inpatient Medications Current Inpatient Medications: Current Inpatient Medications Acetaminophen (Acetaminophen 325 Mg Tab) 650 mg PO Q4H PRN PRN Reason: Pain or Fever Stop: 06/23/22 01:06 Last Admin: 06/01/22 11:08 Dose: 650 mg Albuterol (Albuterol Hfa 8 Gm Inhaler) 2 puffs INH Q4H PRN PRN Reason: SHORT OF BREATH Stop: 06/21/22 08:46 Albuterol (Albuterol 0.083% Nebu Soln 3 Ml Vial) 2.5 mg INH ONCE PRN; Protocol PRN Reason: SOB/WHEEZING Stop: 06/21/22 08:24 Dextrose (Dextrose 50% 50 Ml Syringe) 25 - 50 ml IV UD PRN; Protocol PRN Reason: Hypoglycemia Protocol Stop: 06/21/22 21:49 Last Admin: 05/22/22 21:58 Dose: 25 ml Donepezil HCl (Donepezil Hcl 10 Mg Tab) 10 mg PO HS SARAI Stop: 06/21/22 20:59 Last Admin: 05/31/22 20:12 Dose: 10 mg Famotidine (Famotidine 40 Mg Tablet) 40 mg PO BID PENDING SALE TO [facility] Stop: 06/21/22 08:59 Last Admin: 06/01/22 09:11 Dose: 40 mg Fluconazole (Fluconazole 50 Mg Tab) 150 mg PO DAILY SARAI Stop: 06/02/22 09:01 Last Admin: 06/01/22 09:12 Dose: 150 mg Fluticasone Propionate (Fluticasone Propionate Na Spr 16 Gm Btl) 2 sprays NA HS PENDING SALE TO [facility] Stop: 06/21/22 20:59 Last Admin: 05/31/22 20:15 Dose: 2 sprays Fluticasone/Vilanterol (Fluticasone/Vilanterol 200/25mcg 14 Puffs/Inhaler) 1 puffs INH DAILY SARAI Stop: 06/21/22 08:59 Last Admin: 06/01/22 09:11 Dose: 1 puffs Folic Acid (Folic Acid 400 Mcg Tab) 800 mcg PO QAM SARAI Stop: 06/21/22 08:59 Last Admin: 06/01/22 09:13 Dose: 800 mcg Glucagon (Glucagon For Inj 1 Mg Vial) 1 mg SQ UD PRN; Protocol PRN Reason: Hypoglycemia Protocol Stop: 06/21/22 21:49 Glucose (Glucose 40% Gel 15 Gm Tube) 15 - 30 gm PO UD PRN; Protocol PRN Reason: Hypoglycemia Protocol Stop: 06/21/22 21:49 Glucose (Glucose 10 Tab/Tube) 4 - 8 tab PO UD PRN; Protocol PRN Reason: Hypoglycemia Treatment Stop: 06/21/22 21:49 Heparin Sodium (Porcine) (Heparin Sod 5,000 Unit/0.5 Ml Vial) 5,000 units SQ Q12 SARAI Stop: 06/22/22 20:59 Last Admin: 06/01/22 09:13 Dose: 5,000 units Daptomycin 550 mg/ Syringe 11 mls @ 5.5 mls/min IV Q24H SARAI; Protocol Stop: 06/06/22 08:29 Last Admin: 06/01/22 11:12 Dose: 5.5 mls/min Cefepime HCl 2,000 mg/ Syringe 20 mls @ 5 mls/min IV Q8H PENDING SALE TO [facility]; Protocol Stop: 06/09/22 09:59 Last Admin: 06/01/22 11:13 Dose: 5 mls/min Insulin Aspart (Insulin Aspart Per Unit) 0 units SC ACHS PENDING SALE TO [facility] Stop: 06/21/22 08:24 Last Admin: 06/01/22 12:55 Dose: 9 units Levothyroxine Sodium (Levothyroxine Sodium 100 Mcg Tablet) 100 mcg PO DAILYBB PENDING SALE TO [facility] Stop: 06/21/22 08:59 Last Admin: 06/01/22 05:49 Dose: 100 mcg Loperamide HCl (Loperamide Hcl 2 Mg Cap) 2 mg PO Q6H PRN PRN Reason: Diarrhea Stop: 06/29/22 20:07 Last Admin: 06/01/22 07:50 Dose: 2 mg Magnesium Oxide (Magnesium Oxide 400 Mg Tab) 400 mg PO Q2D@0900 PENDING SALE TO [facility] Stop: 06/21/22 08:59 Last Admin: 06/01/22 09:14 Dose: 400 mg Memantine (Memantine Hcl 10 Mg Tab) 10 mg PO BID PENDING SALE TO [facility] Stop: 06/22/22 08:59 Last Admin: 06/01/22 09:14 Dose: 10 mg Metronidazole (Metronidazole 500 Mg Tab) 500 mg PO TID PENDING SALE TO [facility] Stop: 06/09/22 13:59 Last Admin: 06/01/22 12:57 Dose: 500 mg Miscellaneous (Carbohydrates For Hypoglycemia ) 15 - 30 gm PO UD PRN PRN Reason: Hypoglycemia Protocol Stop: 06/21/22 21:49 Montelukast Sodium (Montelukast Sodium 10 Mg Tablet) 10 mg PO HS PENDING SALE TO [facility] Stop: 06/21/22 20:59 Last Admin: 05/31/22 20:27 Dose: 10 mg Multi-Ingredient Mouthwash/Gargle (First - Mouthwash Blm 119 Ml) 5 ml PO Q8H SARAI Stop: 06/26/22 07:59 Last Admin: 06/01/22 09:11 Dose: 5 ml Oxycodone HCl (Oxycodone Hcl Soln 5 Mg/5 Ml Udc) 5 mg PO Q4H PRN PRN Reason: Pain Stop: 06/15/22 13:06 Last Admin: 06/01/22 13:14 Dose: 5 mg Pantoprazole Sodium (Pantoprazole 40 Mg Tab) 40 mg PO QAM PENDING SALE TO [facility] Stop: 06/22/22 08:59 Last Admin: 06/01/22 09:14 Dose: 40 mg Phenol (Chloraseptic 1.4% Soln 180 Ml Btl) 2 sprays MT Q6H PRN PRN Reason: Sore Throat Stop: 06/29/22 20:07 Potassium Chloride (Potassium Chloride Pwd 20 Meq Pack) 20 meq PO BID SARAI Stop: 06/29/22 20:59 Last Admin: 06/01/22 09:14 Dose: 20 meq Sodium Chloride (Sodium Chloride 0.65% Na Soln 45 Ml ([place])) 1 sprays NA Q6H PRN PRN Reason: Congestion Stop: 06/26/22 16:18 Last Admin: 05/29/22 04:03 Dose: 1 sprays
[2022-06-01] MEDS: lamoTRIgine 25 MG TAB PO SCH (20:28)
[2022-06-01] MEDS: busPIRone 5 MG TAB PO PRN (20:28)
[2022-06-01] MEDS: MONTELUKAST SODIUM 10 MG TABLET PO SCH (20:30)
[2022-06-01] MEDS: DONEPEZIL HCL 10 MG TAB PO SCH (20:30)
[2022-06-01] MEDS: FLUTICASONE PROPIONATE NA SPR 16 GM BTL SCH (20:31)
[2022-06-02] MEDS: FIRST - Mouthwash BLM 119 ML PO SCH ×4 (00:24→23:30)
[2022-06-02] MEDS: CEFEPIME 2,000 MG in SYRINGE 0 ML IV SCH ×3 (02:48→17:47)
[2022-06-02] MEDS: oxyCODONE HCL SOLN 5 MG/5 ML UDC PO PRN ×5 (03:38→22:20)
[2022-06-02] MEDS: LEVOTHYROXINE SODIUM 100 MCG TABLET PO SCH (06:04)
[2022-06-02 07:24] LABS: BUN Creatinine Ratio 14.3 (10-20); Calcium 7.6 mg/dl (8.5-10.1); Creatinine Clr Calc Pharmacy 94.4 ml/min; Est GFR (African American) 106.5 ml/min; Est GFR (Non-African American) 91.9 ml/min; Magnesium 1.5 mg/dl (1.7-2.4); Phosphorus 2.8 mg/dl (2.5-4.9); Potassium 3.1 mmol/L (3.5-5.1)
[2022-06-02] MEDS: FAMOTIDINE 40 MG TABLET PO SCH ×2 (07:50→20:29)
[2022-06-02] MEDS: MEMANTINE HCL 10 MG TAB PO SCH ×2 (07:50→20:29)
[2022-06-02] MEDS: PANTOprazole 40 MG TAB PO SCH (07:50)
[2022-06-02] MEDS: FOLIC ACID 400 MCG TAB PO SCH (07:50)
[2022-06-02] MEDS: FLUCONAZOLE 50 MG TAB PO SCH (07:50)
[2022-06-02] MEDS: metroNIDAZOLE 500 MG TAB PO SCH ×3 (07:50→20:30)
[2022-06-02] MEDS: FLUTICASONE/VILANTEROL 200/25MCG 14 PUFFS/INHALER INH SCH (07:51)
[2022-06-02] MEDS: DULoxetine HCL 30 MG CAP PO SCH (07:51)
[2022-06-02] MEDS: POTASSIUM CHLORIDE PWD 20 MEQ PACK PO SCH ×2 (07:52→20:27)
[2022-06-02] MEDS: HEPARIN SOD 5,000 UNIT/0.5 ML VIAL SQ SCH ×2 (07:52→20:28)
[2022-06-02] MEDS: DAPTOmycin 550 MG in SYRINGE 0 ML IV SCH (08:07)
[2022-06-02] MEDS: INSULIN ASPART PER UNIT SC SCH ×4 (08:21→21:06)
[2022-06-02] MEDS ORDERED: MAGNESIUM OXIDE 400 MG TAB PO SCH ×2 (09:00)
[2022-06-02] MEDS ORDERED: POTASSIUM CHLORIDE CRTAB 20 MEQ TABCR PO SCH (09:00)
[2022-06-02] MEDS: busPIRone 5 MG TAB PO PRN ×2 (09:54→22:22)
[2022-06-02] MEDS: ACETAMINOPHEN 325 MG TAB PO PRN ×2 (09:54→20:27)
[2022-06-02] MEDS ORDERED: MAGNESIUM SULFATE / D5W 1 GM/100 ML BAG IV ONE (12:41)
[2022-06-02] MEDS: POTASSIUM CHLORIDE / WTR 10 MEQ/100 ML PLCT IV SCH ×2 (14:10→16:19)
--- NOTE | 2022-06-02 15:06 | Hospitalist Progress Note ---
Date of Service June 02, 2022 Assessment & Plan (1) Overdose of trazodone: Plan: patient expressed intentional overdose of trazodone found to be somnolent but arousable found to have WBC 34, lactic acidosis 7, Cr 2.35 (baseline 0.81), bicarb 19 Received IVF Poison control contacted recommended to monitor EKG for prolong QTC Psych on board-appreciate input and recommendation 1 to 1 sitter discontinued but Pt cannot leave AMA Continue to hold psych medications for now Need to reach psych when to resume psych med Appreciate psych input and recommendation-antipsychotic medications have been started Oral thrush Has been having pain with swallowing and also chewing Received diclofenac on 150 mg daily x3 days in the past for oral thrush Will give the same for now Her mouth ulceration has been improving Ongoing diarrhea C. difficile toxin has been negative Likely secondary to use of antibiotic Will try Imodium and may need to add Bentyl C. difficile toxin has been negative again on 06/01/2022 Has rectal tube in place to prevent contamination of the sacral wound Will start Lomotil 3 times a day and continue with Imodium as needed to control diarrhea (2) Sepsis: Plan: Bacteremia-the source being buttock abscess as below WBC on admission 34K, WBC continue trending down Elevated procalcitonin Blood cx positive for staph aureus, pseudomonas and alpha strep not strep pneumonia/ enterococcus Repeat blood cx no grow ID recommended to continue daptomycin; Zosyn discontinued and started on Cefepime and flagyl Echo showed no evidence of vegetation Buttock abscess S/P day #9 Debridement Right Buttock Abscess(Right) performed today by Dr. Amador culture from the wound grew staph aureus Continue current abx therapy with daptomycin, cefepime and flagyl Wound care nurse on board recommended daily dressing change wound care will evaluate for wound vac placement Follow up with ID for final abx when ready to discharge Rectal tube in situ (3) Hyponatremia: Plan: likely due to decrease po intake and diarrhea Na on admission 121 Nephrology on board Na improved to 137 Clinically improves-sodium level is now 138 as of 05/31/2022 (4) Hypokalemia: Plan: K 3.1 today K replaced Continue monitor BMP Likely secondary to ongoing diarrhea-we will supplement And hypomagnesemia-we will supplement and monitor (5) Lactic acidosis: Plan: likely related to acute overdose received IVF resolved (6) Leukocytosis: Plan: likely in the setting of acute overdose vs sepsis Continue IVF abx WBC continues trending down (7) Chronic pain: Plan: Continue to holding pain medications given overdose Will resume pain med and titrate when able Continue Tylenol prn (8) Diabetes mellitus, type II: Plan: Most recent hab1c 6.9 Continue to hold metformin pharmacy on board for glycemic management Continue monitor BS (9) Depression: Plan: Suicidal ideation leading to acute overdose case discussed with Psych Continue to hold psych medication Will discontinue 1 to 1 sitter Cannot leave AMA No more suicidal ideation and antipsychotic medications have been restarted (10) Hypothyroidism: Plan: - continue levothyroxine (11) Anemia: Plan: Hgb 9.8 on presentation, baseline around 12 Hgb 9.4 today no signs of active bleeding Continue monitor H/H Plan DVT ppx: on Heparin subq Full Code Disposition Will discharbe once medically stable Admission and Anticipated Discharge Date Admission Date: May 22, 2022 Subjective 05/31/2022 The patient was seen and examined in telemetry unit She has been complaining of sore mouth due to candidiasis Denies any other significant symptoms She has had diclofenac 150 mg daily for 3 days for this kind of candidiasis from her PCP Has been having diarrhea 06/01/2022 The patient was seen and examined in telemetry unit She continues to have diarrhea and complains of more pain in the sacral wound area Denies any chest pain, shortness of breath or palpitation She is not requiring any more one-to-one sitter 06/02/2022 The patient was seen and examined in telemetry unit She has been complaining of ongoing diarrhea without any abdominal pain, nausea or vomiting Her mouth ulcers have been improving Review of Systems Review of Systems: All systems reviewed and are unremarkable except as noted below Gastrointestinal: Sore mouth Physical Exam Physical Exam: Lying in bed comfortably Constitutional: well developed, well nourished and + ill appearing Eyes: PERRL, conjunctivae normal, anicteric sclerae ENMT: external ear and nose normal, oropharynx normal Neck: trachea midline, no thyromegaly Respiratory: no respiratory distress Auscultation: lungs clear to auscultation bilaterally Cardiovascular: Rate/Rhythm: regular rate and regular rhythm; not tachycardic Heart Sounds: normal S1 and normal S2; no murmur Extremities: + edema (Trace edema bilaterally) Gastrointestinal (Abdomen): Inspection/Auscultation: normal bowel sounds; abdomen not distended Percussion/Palpation: abdomen soft; abdomen nontender Musculoskeletal: No acute arthritis in any joint Neurologic: normal touch/pain/proprioception and moves all extremities; no focal motor deficits Lymphatic: no cervical or axillary lymphadenopathy Results & Data Results & Data ([facility]) Vital Signs (Past 12 Hours) Vital Signs Temp Pulse Pulse Resp BP BP Pulse Ox 06/02/22 08:00 06/02/22 08:00 92 H 06/02/22 11:34 37.1 C 102 H 20 138/67 97 06/02/22 07:34 36.7 C 91 H 20 154/77 H 96 06/02/22 03:12 37.1 C 91 H 16 149/74 H 97 O2 Del Method 06/02/22 08:00 Room Air 06/02/22 08:00 06/02/22 11:34 Room Air 06/02/22 07:34 Room Air 06/02/22 03:12 Room Air Laboratory Results BMP 06/02/22 06:09 Sodium 136 Potassium 3.1 L Chloride 101 Carbon Dioxide 28 BUN 8 Creatinine 0.56 L Glucose 188 H Calcium 7.6 L Medications Administered Current Inpatient Medications Acetaminophen (Acetaminophen 325 Mg Tab) 650 mg PO Q4H PRN PRN Reason: Pain or Fever Stop: 06/23/22 01:06 Last Admin: 06/02/22 09:54 Dose: 650 mg Albuterol (Albuterol Hfa 8 Gm Inhaler) 2 puffs INH Q4H PRN PRN Reason: SHORT OF BREATH Stop: 06/21/22 08:46 Albuterol (Albuterol 0.083% Nebu Soln 3 Ml Vial) 2.5 mg INH ONCE PRN; Protocol PRN Reason: SOB/WHEEZING Stop: 06/21/22 08:24 Buspirone HCl (Buspirone 5 Mg Tab) 5 mg PO TID PRN PRN Reason: Anxiety Stop: 07/01/22 15:02 Last Admin: 06/02/22 09:54 Dose: 5 mg Dextrose (Dextrose 50% 50 Ml Syringe) 25 - 50 ml IV UD PRN; Protocol PRN Reason: Hypoglycemia Protocol Stop: 06/21/22 21:49 Last Admin: 05/22/22 21:58 Dose: 25 ml Diphenoxylate HCl/Atropine (Diphenoxylate/Atropine 2.5/0.025mg Tab) 1 tab PO TID [facility] Stop: 07/02/22 20:59 Donepezil HCl (Donepezil Hcl 10 Mg Tab) 10 mg PO HS [facility] Stop: 06/21/22 20:59 Last Admin: 06/01/22 20:30 Dose: 10 mg Duloxetine HCl (Duloxetine Hcl 30 Mg Cap) 30 mg PO QAM [facility] Stop: 07/02/22 08:59 Last Admin: 06/02/22 07:51 Dose: 30 mg Famotidine (Famotidine 40 Mg Tablet) 40 mg PO BID [facility] Stop: 06/21/22 08:59 Last Admin: 06/02/22 07:50 Dose: 40 mg Fluticasone Propionate (Fluticasone Propionate Na Spr 16 Gm Btl) 2 sprays NA HS [facility] Stop: 06/21/22 20:59 Last Admin: 06/01/22 20:31 Dose: 2 sprays Fluticasone/Vilanterol (Fluticasone/Vilanterol 200/25mcg 14 Puffs/Inhaler) 1 puffs INH DAILY [facility] Stop: 06/21/22 08:59 Last Admin: 06/02/22 07:51 Dose: 1 puffs Folic Acid (Folic Acid 400 Mcg Tab) 800 mcg PO QAM [facility] Stop: 06/21/22 08:59 Last Admin: 06/02/22 07:50 Dose: 800 mcg Glucagon (Glucagon For Inj 1 Mg Vial) 1 mg SQ UD PRN; Protocol PRN Reason: Hypoglycemia Protocol Stop: 06/21/22 21:49 Glucose (Glucose 40% Gel 15 Gm Tube) 15 - 30 gm PO UD PRN; Protocol PRN Reason: Hypoglycemia Protocol Stop: 06/21/22 21:49 Glucose (Glucose 10 Tab/Tube) 4 - 8 tab PO UD PRN; Protocol PRN Reason: Hypoglycemia Treatment Stop: 06/21/22 21:49 Heparin Sodium (Porcine) (Heparin Sod 5,000 Unit/0.5 Ml Vial) 5,000 units SQ Q12 [facility] Stop: 06/22/22 20:59 Last Admin: 06/02/22 07:52 Dose: 5,000 units Daptomycin 550 mg/ Syringe 11 mls @ 5.5 mls/min IV Q24H [facility]; Protocol Stop: 06/06/22 08:29 Last Admin: 06/02/22 08:07 Dose: 5.5 mls/min Cefepime HCl 2,000 mg/ Syringe 20 mls @ 5 mls/min IV Q8H [facility]; Protocol Stop: 06/09/22 09:59 Last Admin: 06/02/22 11:29 Dose: 5 mls/min Insulin Aspart (Insulin Aspart Per Unit) 0 units SC ACHS [facility] Stop: 06/21/22 08:24 Last Admin: 06/02/22 13:01 Dose: 11 units Lamotrigine (Lamotrigine 25 Mg Tab) 50 mg PO HS [facility] Stop: 07/01/22 20:59 Last Admin: 06/01/22 20:28 Dose: 50 mg Levothyroxine Sodium (Levothyroxine Sodium 100 Mcg Tablet) 100 mcg PO DAILYBB [facility] Stop: 06/21/22 08:59 Last Admin: 06/02/22 06:04 Dose: 100 mcg Loperamide HCl (Loperamide Hcl 2 Mg Cap) 2 mg PO Q6H PRN PRN Reason: Diarrhea Stop: 06/29/22 20:07 Last Admin: 06/01/22 07:50 Dose: 2 mg Memantine (Memantine Hcl 10 Mg Tab) 10 mg PO BID [facility] Stop: 06/22/22 08:59 Last Admin: 06/02/22 07:50 Dose: 10 mg Metronidazole (Metronidazole 500 Mg Tab) 500 mg PO TID [facility] Stop: 06/09/22 13:59 Last Admin: 06/02/22 14:10 Dose: 500 mg Miscellaneous (Carbohydrates For Hypoglycemia ) 15 - 30 gm PO UD PRN PRN Reason: Hypoglycemia Protocol Stop: 06/21/22 21:49 Montelukast Sodium (Montelukast Sodium 10 Mg Tablet) 10 mg PO HS [facility] Stop: 06/21/22 20:59 Last Admin: 06/01/22 20:30 Dose: 10 mg Multi-Ingredient Mouthwash/Gargle (First - Mouthwash Blm 119 Ml) 5 ml PO Q8H [facility] Stop: 06/26/22 07:59 Last Admin: 06/02/22 07:51 Dose: 5 ml Oxycodone HCl (Oxycodone Hcl Soln 5 Mg/5 Ml Udc) 5 mg PO Q4H PRN PRN Reason: Pain Stop: 06/15/22 13:06 Last Admin: 06/02/22 12:02 Dose: 5 mg Pantoprazole Sodium (Pantoprazole 40 Mg Tab) 40 mg PO QAM [facility] Stop: 06/22/22 08:59 Last Admin: 06/02/22 07:50 Dose: 40 mg Phenol (Chloraseptic 1.4% Soln 180 Ml Btl) 2 sprays MT Q6H PRN PRN Reason: Sore Throat Stop: 06/29/22 20:07 Potassium Chloride (Potassium Chloride Pwd 20 Meq Pack) 20 meq PO BID [facility] Stop: 06/29/22 20:59 Last Admin: 06/02/22 07:52 Dose: Not Given Sodium Chloride (Sodium Chloride 0.65% Na Soln 45 Ml ([place])) 1 sprays NA Q6H PRN PRN Reason: Congestion Stop: 06/26/22 16:18 Last Admin: 05/29/22 04:03 Dose: 1 sprays
[2022-06-02] MEDS: DIPHENOXYLATE/ATROPINE 2.5/0.025MG TAB PO SCH (20:28)
[2022-06-02] MEDS: DONEPEZIL HCL 10 MG TAB PO SCH (20:30)
[2022-06-02] MEDS: MONTELUKAST SODIUM 10 MG TABLET PO SCH (20:30)
[2022-06-02] MEDS: lamoTRIgine 25 MG TAB PO SCH (20:30)
[2022-06-02] MEDS: FLUTICASONE PROPIONATE NA SPR 16 GM BTL SCH (20:31)
[2022-06-03] MEDS: CEFEPIME 2,000 MG in SYRINGE 0 ML IV SCH ×3 (02:32→17:32)
[2022-06-03] MEDS: oxyCODONE HCL SOLN 5 MG/5 ML UDC PO PRN ×5 (03:24→21:08)
[2022-06-03] MEDS: LEVOTHYROXINE SODIUM 100 MCG TABLET PO SCH (06:15)
[2022-06-03] MEDS: INSULIN ASPART PER UNIT SC SCH ×4 (08:21→21:03)
[2022-06-03] MEDS: DIPHENOXYLATE/ATROPINE 2.5/0.025MG TAB PO SCH ×3 (08:29→19:48)
[2022-06-03] MEDS: FOLIC ACID 400 MCG TAB PO SCH (08:29)
[2022-06-03] MEDS: FLUTICASONE/VILANTEROL 200/25MCG 14 PUFFS/INHALER INH SCH (08:29)
[2022-06-03] MEDS: PANTOprazole 40 MG TAB PO SCH (08:29)
[2022-06-03] MEDS: MEMANTINE HCL 10 MG TAB PO SCH ×2 (08:29→19:50)
[2022-06-03] MEDS: metroNIDAZOLE 500 MG TAB PO SCH ×3 (08:29→19:49)
[2022-06-03] MEDS: DULoxetine HCL 30 MG CAP PO SCH (08:29)
[2022-06-03] MEDS: FAMOTIDINE 40 MG TABLET PO SCH ×2 (08:29→19:51)
[2022-06-03] MEDS: FIRST - Mouthwash BLM 119 ML PO SCH ×2 (08:30→17:32)
[2022-06-03] MEDS: DAPTOmycin 550 MG in SYRINGE 0 ML IV SCH (08:30)
[2022-06-03] MEDS: HEPARIN SOD 5,000 UNIT/0.5 ML VIAL SQ SCH ×2 (08:30→19:49)
[2022-06-03] MEDS: POTASSIUM CHLORIDE PWD 20 MEQ PACK PO SCH ×2 (08:40→19:52)
--- NOTE | 2022-06-03 10:22 | Communication Note ---
Date of Service: June 03, 2022 patient is tolerating restart of Cymbalta, eating/sleeping/etc. No skin changes outside of wound issue since starting Lamictal. Did use Buspar 5 mg prn last pm successfully for anxiety. Dr. Rai to continue retitration of Cymbalta and lamictal. For now, increase Cymbalta 60 mg po qam and lamictal 100 mg hs. Continue Buspar prn.
[2022-06-03] MEDS: ACETAMINOPHEN 325 MG TAB PO PRN (10:55)
--- NOTE | 2022-06-03 14:53 | Hospitalist Progress Note ---
Date of Service June 03, 2022 Assessment & Plan (1) Overdose of trazodone: Plan: patient expressed intentional overdose of trazodone found to be somnolent but arousable found to have WBC 34, lactic acidosis 7, Cr 2.35 (baseline 0.81), bicarb 19 Received IVF Poison control contacted recommended to monitor EKG for prolong QTC Psych on board-appreciate input and recommendation 1 to 1 sitter discontinued but Pt cannot leave AMA Continue to hold psych medications for now Need to reach psych when to resume psych med Appreciate psych input and recommendation-antipsychotic medications have been started No acute anxiety and/or depression Oral thrush Has been having pain with swallowing and also chewing Received diclofenac on 150 mg daily x3 days in the past for oral thrush Will give the same for now Her mouth ulceration has been improving Ongoing diarrhea C. difficile toxin has been negative Likely secondary to use of antibiotic Will try Imodium and may need to add Bentyl C. difficile toxin has been negative again on 06/01/2022 Has rectal tube in place to prevent contamination of the sacral wound Will start Lomotil 3 times a day and continue with Imodium as needed to control diarrhea Diarrhea is controlled and will discontinue rectal tube (2) Sepsis: Plan: Bacteremia-the source being buttock abscess as below WBC on admission 34K, WBC continue trending down Elevated procalcitonin Blood cx positive for staph aureus, pseudomonas and alpha strep not strep pneumonia/ enterococcus Repeat blood cx no grow ID recommended to continue daptomycin; Zosyn discontinued and started on Cefepime and flagyl Echo showed no evidence of vegetation Buttock abscess S/P day #10 Debridement Right Buttock Abscess(Right) performed today by Dr. Amador culture from the wound grew staph aureus Continue current abx therapy with daptomycin, cefepime and flagyl Wound care nurse on board recommended daily dressing change wound care will evaluate for wound vac placement Follow up with ID for final abx when ready to discharge Rectal tube in situ-we will discontinue rectal tube (3) Hyponatremia: Plan: likely due to decrease po intake and diarrhea Na on admission 121 Nephrology on board Na improved to 137 Clinically improves-sodium level is now 138 as of 05/31/2022 (4) Hypokalemia: Plan: K 3.1 today K replaced Continue monitor BMP Likely secondary to ongoing diarrhea-we will supplement And hypomagnesemia-we will supplement and monitor (5) Lactic acidosis: Plan: likely related to acute overdose received IVF resolved (6) Leukocytosis: Plan: likely in the setting of acute overdose vs sepsis Continue IVF abx WBC continues trending down (7) Chronic pain: Plan: Continue to holding pain medications given overdose Will resume pain med and titrate when able Continue Tylenol prn (8) Diabetes mellitus, type II: Plan: Most recent hab1c 6.9 Continue to hold metformin pharmacy on board for glycemic management Continue monitor BS (9) Depression: Plan: Suicidal ideation leading to acute overdose case discussed with Psych Continue to hold psych medication Will discontinue 1 to 1 sitter Cannot leave AMA No more suicidal ideation and antipsychotic medications have been restarted (10) Hypothyroidism: Plan: - continue levothyroxine (11) Anemia: Plan: Hgb 9.8 on presentation, baseline around 12 Hgb 9.4 today no signs of active bleeding Continue monitor H/H Plan DVT ppx: on Heparin subq Full Code Disposition Will discharbe once medically stable Admission and Anticipated Discharge Date Admission Date: May 22, 2022 Subjective 05/31/2022 The patient was seen and examined in telemetry unit She has been complaining of sore mouth due to candidiasis Denies any other significant symptoms She has had diclofenac 150 mg daily for 3 days for this kind of candidiasis from her PCP Has been having diarrhea 06/01/2022 The patient was seen and examined in telemetry unit She continues to have diarrhea and complains of more pain in the sacral wound area Denies any chest pain, shortness of breath or palpitation She is not requiring any more one-to-one sitter 06/02/2022 The patient was seen and examined in telemetry unit She has been complaining of ongoing diarrhea without any abdominal pain, nausea or vomiting Her mouth ulcers have been improving 06/03/2022 The patient was seen and examined in telemetry unit She has been feeling much better and the diarrhea seems to be controlled Denies any other significant symptoms Her oral ulcerations have been improving Review of Systems Review of Systems: All systems reviewed and are unremarkable except as noted below Gastrointestinal: Sore mouth Physical Exam Physical Exam: Lying in bed comfortably Constitutional: well developed, well nourished and + ill appearing Eyes: PERRL, conjunctivae normal, anicteric sclerae ENMT: external ear and nose normal, oropharynx normal Neck: trachea midline, no thyromegaly Respiratory: no respiratory distress Auscultation: lungs clear to auscultation bilaterally Cardiovascular: Rate/Rhythm: regular rate and regular rhythm; not tachycardic Heart Sounds: normal S1 and normal S2; no murmur Extremities: + edema (Trace edema bilaterally) Gastrointestinal (Abdomen): Inspection/Auscultation: normal bowel sounds; abdomen not distended Percussion/Palpation: abdomen soft; abdomen nontender Musculoskeletal: No acute arthritis in any joint Neurologic: normal touch/pain/proprioception and moves all extremities; no focal motor deficits Lymphatic: no cervical or axillary lymphadenopathy Results & Data Results & Data ([facility]) Vital Signs (Past 12 Hours) Vital Signs Temp Pulse Pulse Resp BP Pulse Ox O2 Del Method 06/03/22 12:18 36.8 C 102 H 18 162/80 H 94 Room Air 06/03/22 07:25 Room Air 06/03/22 07:25 102 H 06/03/22 07:18 37.0 C 93 H 18 154/86 H 96 Room Air Medications Administered Current Inpatient Medications Acetaminophen (Acetaminophen 325 Mg Tab) 650 mg PO Q4H PRN PRN Reason: Pain or Fever Stop: 06/23/22 01:06 Last Admin: 06/03/22 10:55 Dose: 650 mg Albuterol (Albuterol Hfa 8 Gm Inhaler) 2 puffs INH Q4H PRN PRN Reason: SHORT OF BREATH Stop: 06/21/22 08:46 Albuterol (Albuterol 0.083% Nebu Soln 3 Ml Vial) 2.5 mg INH ONCE PRN; Protocol PRN Reason: SOB/WHEEZING Stop: 06/21/22 08:24 Buspirone HCl (Buspirone 5 Mg Tab) 5 mg PO TID PRN PRN Reason: Anxiety Stop: 07/01/22 15:02 Last Admin: 06/02/22 22:22 Dose: 5 mg Dextrose (Dextrose 50% 50 Ml Syringe) 25 - 50 ml IV UD PRN; Protocol PRN Reason: Hypoglycemia Protocol Stop: 06/21/22 21:49 Last Admin: 05/22/22 21:58 Dose: 25 ml Diphenoxylate HCl/Atropine (Diphenoxylate/Atropine 2.5/0.025mg Tab) 1 tab PO TID [facility] Stop: 07/02/22 20:59 Last Admin: 06/03/22 12:43 Dose: 1 tab Donepezil HCl (Donepezil Hcl 10 Mg Tab) [address] [facility] Stop: 06/21/22 20:59 Last Admin: 06/02/22 20:30 Dose: 10 mg Duloxetine HCl (Duloxetine Hcl 60 Mg Cap) 60 mg PO QAM [facility] Stop: 07/04/22 08:59 Famotidine (Famotidine 40 Mg Tablet) 40 mg PO BID [facility] Stop: 06/21/22 08:59 Last Admin: 06/03/22 08:29 Dose: 40 mg Fluticasone Propionate (Fluticasone Propionate Na Spr 16 Gm Btl) [address] [facility] Stop: 06/21/22 20:59 Last Admin: 06/02/22 20:31 Dose: 2 sprays Fluticasone/Vilanterol (Fluticasone/Vilanterol 200/25mcg 14 Puffs/Inhaler) 1 puffs INH DAILY [facility] Stop: 06/21/22 08:59 Last Admin: 06/03/22 08:29 Dose: 1 puffs Folic Acid (Folic Acid 400 Mcg Tab) 800 mcg PO QAM [facility] Stop: 06/21/22 08:59 Last Admin: 06/03/22 08:29 Dose: 800 mcg Glucagon (Glucagon For Inj 1 Mg Vial) 1 mg SQ UD PRN; Protocol PRN Reason: Hypoglycemia Protocol Stop: 06/21/22 21:49 Glucose (Glucose 40% Gel 15 Gm Tube) 15 - 30 gm PO UD PRN; Protocol PRN Reason: Hypoglycemia Protocol Stop: 06/21/22 21:49 Glucose (Glucose 10 Tab/Tube) 4 - 8 tab PO UD PRN; Protocol PRN Reason: Hypoglycemia Treatment Stop: 06/21/22 21:49 Heparin Sodium (Porcine) (Heparin Sod 5,000 Unit/0.5 Ml Vial) 5,000 units SQ Q12 [facility] Stop: 06/22/22 20:59 Last Admin: 06/03/22 08:30 Dose: 5,000 units Daptomycin 550 mg/ Syringe 11 mls @ 5.5 mls/min IV Q24H [facility]; Protocol Stop: 06/06/22 08:29 Last Admin: 06/03/22 08:30 Dose: 5.5 mls/min Cefepime HCl 2,000 mg/ Syringe 20 mls @ 5 mls/min IV Q8H [facility]; Protocol Stop: 06/09/22 09:59 Last Admin: 06/03/22 10:55 Dose: 5 mls/min Insulin Aspart (Insulin Aspart Per Unit) [address] [facility] Stop: 06/21/22 08:24 Last Admin: 06/03/22 12:39 Dose: 16 units Lamotrigine (Lamotrigine 100 Mg Tab) [address] [facility] Stop: 07/03/22 20:59 Levothyroxine Sodium (Levothyroxine Sodium 100 Mcg Tablet) [address] [facility] Stop: 06/21/22 08:59 Last Admin: 06/03/22 06:15 Dose: 100 mcg Loperamide HCl (Loperamide Hcl 2 Mg Cap) 2 mg PO Q6H PRN PRN Reason: Diarrhea Stop: 06/29/22 20:07 Last Admin: 06/01/22 07:50 Dose: 2 mg Memantine (Memantine Hcl 10 Mg Tab) [address] [facility] Stop: 06/22/22 08:59 Last Admin: 06/03/22 08:29 Dose: 10 mg Metronidazole (Metronidazole 500 Mg Tab) [address] [facility] Stop: 06/09/22 13:59 Last Admin: 06/03/22 12:43 Dose: 500 mg Miscellaneous (Carbohydrates For Hypoglycemia ) 15 - 30 gm PO UD PRN PRN Reason: Hypoglycemia Protocol Stop: 06/21/22 21:49 Montelukast Sodium (Montelukast Sodium 10 Mg Tablet) [address] [facility] Stop: 06/21/22 20:59 Last Admin: 06/02/22 20:30 Dose: 10 mg Multi-Ingredient Mouthwash/Gargle (First - Mouthwash Blm 119 Ml) 5 ml PO Q8H [facility] Stop: 06/26/22 07:59 Last Admin: 06/03/22 08:30 Dose: 5 ml Oxycodone HCl (Oxycodone Hcl Soln 5 Mg/5 Ml Udc) 5 mg PO Q4H PRN PRN Reason: Pain Stop: 06/15/22 13:06 Last Admin: 06/03/22 11:44 Dose: 5 mg Pantoprazole Sodium (Pantoprazole 40 Mg Tab) [address] [facility] Stop: 06/22/22 08:59 Last Admin: 06/03/22 08:29 Dose: 40 mg Phenol (Chloraseptic 1.4% Soln 180 Ml Btl) 2 sprays MT Q6H PRN PRN Reason: Sore Throat Stop: 06/29/22 20:07 Potassium Chloride (Potassium Chloride Pwd 20 Meq Pack) 20 meq PO BID [facility] Stop: 06/29/22 20:59 Last Admin: 06/03/22 08:40 Dose: Not Given Sodium Chloride (Sodium Chloride 0.65% Na Soln 45 Ml ([place])) 1 sprays NA Q6H PRN PRN Reason: Congestion Stop: 06/26/22 16:18 Last Admin: 05/29/22 04:03 Dose: 1 sprays
[2022-06-03] MEDS: LOPERAMIDE HCL 2 MG CAP PO PRN (17:32)
[2022-06-03] MEDS: DONEPEZIL HCL 10 MG TAB PO SCH (19:48)
[2022-06-03] MEDS: lamoTRIgine 100 MG TAB PO SCH (19:50)
[2022-06-03] MEDS: MONTELUKAST SODIUM 10 MG TABLET PO SCH (19:51)
[2022-06-03] MEDS: FLUTICASONE PROPIONATE NA SPR 16 GM BTL SCH (19:52)
[2022-06-04] MEDS: FIRST - Mouthwash BLM 119 ML PO SCH ×4 (00:16→23:44)
[2022-06-04] MEDS: CEFEPIME 2,000 MG in SYRINGE 0 ML IV SCH ×3 (02:15→17:02)
[2022-06-04] MEDS: oxyCODONE HCL SOLN 5 MG/5 ML UDC PO PRN ×5 (02:25→23:44)
[2022-06-04] MEDS: LEVOTHYROXINE SODIUM 100 MCG TABLET PO SCH (05:35)
[2022-06-04 06:50] LABS: BUN Creatinine Ratio 14.7 (10-20); Calcium 8.2 mg/dl (8.5-10.1); Creatinine Clr Calc Pharmacy 77.4 ml/min; Est GFR (African American) 99.9 ml/min; Est GFR (Non-African American) 86.2 ml/min; Magnesium 1.5 mg/dl (1.7-2.4); Phosphorus 3.4 mg/dl (2.5-4.9); Potassium 3.5 mmol/L (3.5-5.1)
[2022-06-04] MEDS: INSULIN ASPART PER UNIT SC SCH ×4 (08:02→21:15)
[2022-06-04] MEDS: DIPHENOXYLATE/ATROPINE 2.5/0.025MG TAB PO SCH ×3 (08:18→21:08)
[2022-06-04] MEDS: POTASSIUM CHLORIDE PWD 20 MEQ PACK PO SCH ×2 (08:20→21:03)
[2022-06-04] MEDS: FLUTICASONE/VILANTEROL 200/25MCG 14 PUFFS/INHALER INH SCH (08:20)
[2022-06-04] MEDS: MEMANTINE HCL 10 MG TAB PO SCH ×2 (08:21→21:09)
[2022-06-04] MEDS: metroNIDAZOLE 500 MG TAB PO SCH ×3 (08:21→21:08)
[2022-06-04] MEDS: FAMOTIDINE 40 MG TABLET PO SCH ×2 (08:22→21:08)
[2022-06-04] MEDS: HEPARIN SOD 5,000 UNIT/0.5 ML VIAL SQ SCH ×2 (08:22→21:09)
[2022-06-04] MEDS: FOLIC ACID 400 MCG TAB PO SCH (08:23)
[2022-06-04] MEDS: DAPTOmycin 550 MG in SYRINGE 0 ML IV SCH (08:30)
[2022-06-04] MEDS: DULoxetine HCL 60 MG CAP PO SCH (09:43)
[2022-06-04] MEDS: PANTOprazole 40 MG TAB PO SCH (09:43)
[2022-06-04] MEDS: LOPERAMIDE HCL 2 MG CAP PO PRN (12:28)
--- NOTE | 2022-06-04 12:50 | Hospitalist Progress Note ---
Date of Service June 04, 2022 Assessment & Plan (1) Overdose of trazodone: Plan: patient expressed intentional overdose of trazodone found to be somnolent but arousable found to have WBC 34, lactic acidosis 7, Cr 2.35 (baseline 0.81), bicarb 19 Received IVF Poison control contacted recommended to monitor EKG for prolong QTC Psych on board-appreciate input and recommendation 1 to 1 sitter discontinued but Pt cannot leave AMA Continue to hold psych medications for now Need to reach psych when to resume psych med Appreciate psych input and recommendation-antipsychotic medications have been started No acute anxiety and/or depression Oral thrush Has been having pain with swallowing and also chewing Received diclofenac on 150 mg daily x3 days in the past for oral thrush Will give the same for now Her mouth ulceration has been improving Has been tolerating diet Ongoing diarrhea C. difficile toxin has been negative Likely secondary to use of antibiotic Will try Imodium and may need to add Bentyl C. difficile toxin has been negative again on 06/01/2022 Has rectal tube in place to prevent contamination of the sacral wound Will start Lomotil 3 times a day and continue with Imodium as needed to control diarrhea Diarrhea is controlled and will discontinue rectal tube Diarrhea is controlled now and has had only 1 bowel movement today We will continue current dose of Lomotil and Imodium as needed (2) Sepsis: Plan: Bacteremia-the source being buttock abscess as below WBC on admission 34K, WBC continue trending down Elevated procalcitonin Blood cx positive for staph aureus, pseudomonas and alpha strep not strep pneumonia/ enterococcus Repeat blood cx no grow ID recommended to continue daptomycin; Zosyn discontinued and started on Cefepime and flagyl Echo showed no evidence of vegetation Buttock abscess S/P day #11 Debridement Right Buttock Abscess(Right) performed today by Dr. Amador culture from the wound grew staph aureus Continue current abx therapy with daptomycin, cefepime and flagyl Wound care nurse on board recommended daily dressing change wound care will evaluate for wound vac placement Follow up with ID for final abx when ready to discharge Rectal tube in situ-we will discontinue rectal tube Plan to continue antibiotic for 14 days and then change to oral (3) Hyponatremia: Plan: likely due to decrease po intake and diarrhea Na on admission 121 Nephrology on board Na improved to 137 Clinically improves-sodium level is now 138 as of 05/31/2022 (4) Hypokalemia: Plan: K 3.1 today K replaced Continue monitor BMP Likely secondary to ongoing diarrhea-we will supplement And hypomagnesemia-we will supplement and monitor (5) Lactic acidosis: Plan: likely related to acute overdose received IVF resolved (6) Leukocytosis: Plan: likely in the setting of acute overdose vs sepsis Continue IVF abx WBC continues trending down (7) Chronic pain: Plan: Continue to holding pain medications given overdose Will resume pain med and titrate when able Continue Tylenol prn (8) Diabetes mellitus, type II: Plan: Most recent hab1c 6.9 Continue to hold metformin pharmacy on board for glycemic management Continue monitor BS (9) Depression: Plan: Suicidal ideation leading to acute overdose case discussed with Psych Continue to hold psych medication Will discontinue 1 to 1 sitter Cannot leave AMA No more suicidal ideation and antipsychotic medications have been restarted (10) Hypothyroidism: Plan: - continue levothyroxine (11) Anemia: Plan: Hgb 9.8 on presentation, baseline around 12 Hgb 9.4 today no signs of active bleeding Continue monitor H/H Plan DVT ppx: on Heparin subq Full Code Disposition Will discharbe once medically stable Admission and Anticipated Discharge Date Admission Date: May 22, 2022 Subjective 05/31/2022 The patient was seen and examined in telemetry unit She has been complaining of sore mouth due to candidiasis Denies any other significant symptoms She has had diclofenac 150 mg daily for 3 days for this kind of candidiasis from her PCP Has been having diarrhea 06/01/2022 The patient was seen and examined in telemetry unit She continues to have diarrhea and complains of more pain in the sacral wound ar ea Denies any chest pain, shortness of breath or palpitation She is not requiring any more one-to-one sitter 06/02/2022 The patient was seen and examined in telemetry unit She has been complaining of ongoing diarrhea without any abdominal pain, nausea or vomiting Her mouth ulcers have been improving 06/03/2022 The patient was seen and examined in telemetry unit She has been feeling much better and the diarrhea seems to be controlled Denies any other significant symptoms Her oral ulcerations have been improving 06/04/2022 The patient was seen and examined in telemetry unit She has been feeling much better the diarrhea is controlled Denies any significant pain, no fever and or chills Review of Systems Review of Systems: All systems reviewed and are unremarkable except as noted below Gastrointestinal: Sore mouth Physical Exam Physical Exam: Lying in bed comfortably Constitutional: well developed, well nourished and + ill appearing Eyes: PERRL, conjunctivae normal, anicteric sclerae ENMT: external ear and nose normal, oropharynx normal Neck: trachea midline, no thyromegaly Respiratory: no respiratory distress Auscultation: lungs clear to auscultation bilaterally Cardiovascular: Rate/Rhythm: regular rate and regular rhythm; not tachycardic Heart Sounds: normal S1 and normal S2; no murmur Extremities: + edema (Trace edema bilaterally) Gastrointestinal (Abdomen): Inspection/Auscultation: normal bowel sounds; abdomen not distended Percussion/Palpation: abdomen soft; abdomen nontender Neurologic: normal touch/pain/proprioception and moves all extremities; no focal motor deficits Psychiatric: A+Ox3, euthymic affect Lymphatic: no cervical or axillary lymphadenopathy Results & Data Results & Data ([facility]) Vital Signs (Past 12 Hours) Vital Signs Temp Pulse Pulse Pulse Resp BP Pulse Ox 06/04/22 07:00 62 06/04/22 11:54 37.6 C H 100 H 18 161/75 H 95 06/04/22 08:00 94 H 06/04/22 07:58 37 C 98 H 18 147/82 H 92 06/04/22 03:17 36.9 C 114 H 18 155/78 H 96 O2 Del Method 06/04/22 07:00 06/04/22 11:54 Room Air 06/04/22 08:00 06/04/22 07:58 Room Air 06/04/22 03:17 Room Air Laboratory Results [facility] 06/04/22 05:55 Sodium 137 Potassium 3.5 Chloride 103 Carbon Dioxide 29 BUN 10 Creatinine 0.68 Glucose 207 H Calcium 8.2 L Medications Administered Current Inpatient Medications Acetaminophen (Acetaminophen 325 Mg Tab) 650 mg PO Q4H PRN PRN Reason: Pain or Fever Stop: 06/23/22 01:06 Last Admin: 06/03/22 10:55 Dose: 650 mg Albuterol (Albuterol Hfa 8 Gm Inhaler) 2 puffs INH Q4H PRN PRN Reason: SHORT OF BREATH Stop: 06/21/22 08:46 Albuterol (Albuterol 0.083% Nebu Soln 3 Ml Vial) 2.5 mg INH ONCE PRN; Protocol PRN Reason: SOB/WHEEZING Stop: 06/21/22 08:24 Buspirone HCl (Buspirone 5 Mg Tab) 5 mg PO TID PRN PRN Reason: Anxiety Stop: 07/01/22 15:02 Last Admin: 06/02/22 22:22 Dose: 5 mg Dextrose (Dextrose 50% 50 Ml Syringe) 25 - 50 ml IV UD PRN; Protocol PRN Reason: Hypoglycemia Protocol Stop: 06/21/22 21:49 Last Admin: 05/22/22 21:58 Dose: 25 ml Diphenoxylate HCl/Atropine (Diphenoxylate/Atropine 2.5/0.025mg Tab) 1 tab PO TID [facility] Stop: 07/02/22 20:59 Last Admin: 06/04/22 08:18 Dose: 1 tab Donepezil HCl (Donepezil Hcl 10 Mg Tab) 10 mg PO HS [facility] Stop: 06/21/22 20:59 Last Admin: 06/03/22 19:48 Dose: 10 mg Duloxetine HCl (Duloxetine Hcl 60 Mg Cap) 60 mg PO QAM [facility] Stop: 07/04/22 08:59 Last Admin: 06/04/22 09:43 Dose: 60 mg Famotidine (Famotidine 40 Mg Tablet) 40 mg PO BID [facility] Stop: 06/21/22 08:59 Last Admin: 06/04/22 08:22 Dose: 40 mg Fluticasone Propionate (Fluticasone Propionate Na Spr 16 Gm Btl) 2 sprays NA HS [facility] Stop: 06/21/22 20:59 Last Admin: 06/03/22 19:52 Dose: 2 sprays Fluticasone/Vilanterol (Fluticasone/Vilanterol 200/25mcg 14 Puffs/Inhaler) 1 puffs INH DAILY [facility] Stop: 06/21/22 08:59 Last Admin: 06/04/22 08:20 Dose: 1 puffs Folic Acid (Folic Acid 400 Mcg Tab) 800 mcg PO QAM [facility] Stop: 06/21/22 08:59 Last Admin: 06/04/22 08:23 Dose: 800 mcg Glucagon (Glucagon For Inj 1 Mg Vial) 1 mg SQ UD PRN; Protocol PRN Reason: Hypoglycemia Protocol Stop: 06/21/22 21:49 Glucose (Glucose 40% Gel 15 Gm Tube) 15 - 30 gm PO UD PRN; Protocol PRN Reason: Hypoglycemia Protocol Stop: 06/21/22 21:49 Glucose (Glucose 10 Tab/Tube) 4 - 8 tab PO UD PRN; Protocol PRN Reason: Hypoglycemia Treatment Stop: 06/21/22 21:49 Heparin Sodium (Porcine) (Heparin Sod 5,000 Unit/0.5 Ml Vial) 5,000 units SQ Q12 [facility] Stop: 06/22/22 20:59 Last Admin: 06/04/22 08:22 Dose: 5,000 units Daptomycin 550 mg/ Syringe 11 mls @ 5.5 mls/min IV Q24H [facility]; Protocol Stop: 06/06/22 08:29 Last Admin: 06/04/22 08:30 Dose: 5.5 mls/min Cefepime HCl 2,000 mg/ Syringe 20 mls @ 5 mls/min IV Q8H [facility]; Protocol Stop: 06/09/22 09:59 Last Admin: 06/04/22 09:45 Dose: 5 mls/min Insulin Aspart (Insulin Aspart Per Unit) 0 units SC ACHS [facility] Stop: 06/21/22 08:24 Last Admin: 06/04/22 12:23 Dose: 11 units Lamotrigine (Lamotrigine 100 Mg Tab) 100 mg PO HS [facility] Stop: 07/03/22 20:59 Last Admin: 06/03/22 19:50 Dose: 100 mg Levothyroxine Sodium (Levothyroxine Sodium 100 Mcg Tablet) 100 mcg PO DAILYBB [facility] Stop: 06/21/22 08:59 Last Admin: 06/04/22 05:35 Dose: 100 mcg Loperamide HCl (Loperamide Hcl 2 Mg Cap) 2 mg PO Q6H PRN PRN Reason: Diarrhea Stop: 06/29/22 20:07 Last Admin: 06/04/22 12:28 Dose: 2 mg Memantine (Memantine Hcl 10 Mg Tab) 10 mg PO BID [facility] Stop: 06/22/22 08:59 Last Admin: 06/04/22 08:21 Dose: 10 mg Metronidazole (Metronidazole 500 Mg Tab) 500 mg PO TID [facility] Stop: 06/09/22 13:59 Last Admin: 06/04/22 08:21 Dose: 500 mg Miscellaneous (Carbohydrates For Hypoglycemia ) 15 - 30 gm PO UD PRN PRN Reason: Hypoglycemia Protocol Stop: 06/21/22 21:49 Montelukast Sodium (Montelukast Sodium 10 Mg Tablet) 10 mg PO HS [facility] Stop: 06/21/22 20:59 Last Admin: 06/03/22 19:51 Dose: 10 mg Multi-Ingredient Mouthwash/Gargle (First - Mouthwash Blm 119 Ml) 5 ml PO Q8H [facility] Stop: 06/26/22 07:59 Last Admin: 06/04/22 08:17 Dose: 5 ml Oxycodone HCl (Oxycodone Hcl Soln 5 Mg/5 Ml Udc) 5 mg PO Q4H PRN PRN Reason: Pain Stop: 06/15/22 13:06 Last Admin: 06/04/22 08:16 Dose: 5 mg Pantoprazole Sodium (Pantoprazole 40 Mg Tab) 40 mg PO QAM [facility] Stop: 06/22/22 08:59 Last Admin: 06/04/22 09:43 Dose: 40 mg Phenol (Chloraseptic 1.4% Soln 180 Ml Btl) 2 sprays MT Q6H PRN PRN Reason: Sore Throat Stop: 06/29/22 20:07 Potassium Chloride (Potassium Chloride Pwd 20 Meq Pack) 20 meq PO BID [facility] Stop: 06/29/22 20:59 Last Admin: 06/04/22 08:20 Dose: Not Given Sodium Chloride (Sodium Chloride 0.65% Na Soln 45 Ml ([place])) 1 sprays NA Q6H PRN PRN Reason: Congestion Stop: 06/26/22 16:18 Last Admin: 05/29/22 04:03 Dose: 1 sprays
--- NOTE | 2022-06-04 14:36 | Psychiatric Progress Note ---
Date of Service June 04, 2022 Impression / Recommendations Impression 76 yo s/p trazodone OD, outpatient providers concerned about some degree of vascular dementia perhaps contributing to impulsivity though ultimately dx delirium/sepsis. 06/04/22: mood remains improved and stable without any reoccurrence of SI. Tolerating titration of Cymbalta, lamictal and buspar without any side effects. Depression improving significantly as pain lessens. (1) Overdose of trazodone: (2) Depression: Plan -Lamictal 100 mg hs and retitrate to 150 mg daily upon discharge. -Cymbalta 60mg qd, further titration can occur in outpatient setting if needed -continue with buspar prn, if continues to tolerate can be scheduled as 5mg TID upon discharge Interval History Identifying Information 76 yo woman who lives in [place] with her admitted medically following intentional ingestion. Psychiatry consulted for recommendations. Chief Complaint "I'm good". Review of Systems Notes stable sleep and appetite. Subjective Subjective Patient was seen & assessed and interval progress reviewed. She states her mood is "good" and is looking forward to watching the [employer] game on TV tonight. No side effects from higher dose of Cymbalta today and continues to tolerate higher dose of lamictal. Denies any SI. Denies any other concerns or questions. Continues to have pain but she feels this is improving a lot. Procedures Performed Operation Date: 05/24/22 10:45 Actual Procedures p Debridement Right Buttock Abscess(Right) - Sarah Amador MD Physical Exam Psychiatric Orientation: alert, oriented x 3 and cooperative Eye Contact: good eye contact Motor Behavior: no abnormal motor movements Speech: normal rate/rhythm/volume of speech Affect: euthymic affect (smiling especially when describing visit with her family) Mood: no depressed mood (still with physical pain ) and no anxious mood Thought Process: clear/coherent thought process Thought Content: reality based without delusions Suicidal Thoughts: denies suicidal thoughts Homicidal Thoughts: denies homicidal thoughts Hallucinations: no auditory hallucinations and no visual hallucinations Cognition: recent memory grossly intact, remote memory grossly intact, attention grossly intact and language grossly intact Estimated Intelligence: consistent with education level Insight: + fair insight Judgement: + fair judgement Vital Signs (Past 24 Hours) Last Vital Signs Temp 37.6 C H 06/04/22 11:54 Pulse 100 H 06/04/22 11:54 Resp 18 06/04/22 11:54 BP 161/75 H 06/04/22 11:54 Pulse Ox 95 06/04/22 11:54 O2 Del Method 06/04/22 11:54 O2 Flow Rate 2 05/26/22 07:00 Results & Data ([facility]) Laboratory Results Laboratory Results - last 24 hr 06/03/22 06/03/22 06/04/22 16:20 20:01 05:55 Sodium 137 Potassium 3.5 Chloride 103 Carbon Dioxide 29 Anion Gap 5 BUN 10 Creatinine 0.68 Est Cr Clr Drug Dosing 77.4 Est GFR ( Amer) 99.9 Est GFR (Non-Af Amer) 86.2 BUN/Creatinine Ratio 14.7 Glucose 207 H POC Glucose 166 H 208 H Calcium 8.2 L Phosphorus 3.4 Magnesium 1.5 L 06/04/22 06/04/22 07:14 11:10 Sodium Potassium Chloride Carbon Dioxide Anion Gap BUN Creatinine Est Cr Clr Drug Dosing Est GFR ( Amer) Est GFR (Non-Af Amer) BUN/Creatinine Ratio Glucose POC Glucose 214 H 297 H Calcium Phosphorus Magnesium Current Inpatient Medications Current Inpatient Medications: Current Inpatient Medications Acetaminophen (Acetaminophen 325 Mg Tab) 650 mg PO Q4H PRN PRN Reason: Pain or Fever Stop: 06/23/22 01:06 Last Admin: 06/03/22 10:55 Dose: 650 mg Albuterol (Albuterol Hfa 8 Gm Inhaler) 2 puffs INH Q4H PRN PRN Reason: SHORT OF BREATH Stop: 06/21/22 08:46 Albuterol (Albuterol 0.083% Nebu Soln 3 Ml Vial) 2.5 mg INH ONCE PRN; Protocol PRN Reason: SOB/WHEEZING Stop: 06/21/22 08:24 Buspirone HCl (Buspirone 5 Mg Tab) 5 mg PO TID PRN PRN Reason: Anxiety Stop: 07/01/22 15:02 Last Admin: 06/02/22 22:22 Dose: 5 mg Dextrose (Dextrose 50% 50 Ml Syringe) 25 - 50 ml IV UD PRN; Protocol PRN Reason: Hypoglycemia Protocol Stop: 06/21/22 21:49 Last Admin: 05/22/22 21:58 Dose: 25 ml Diphenoxylate HCl/Atropine (Diphenoxylate/Atropine 2.5/0.025mg Tab) 1 tab PO TID [facility] Stop: 07/02/22 20:59 Last Admin: 06/04/22 14:03 Dose: 1 tab Donepezil HCl (Donepezil Hcl 10 Mg Tab) 10 mg PO HS [facility] Stop: 06/21/22 20:59 Last Admin: 06/03/22 19:48 Dose: 10 mg Duloxetine HCl (Duloxetine Hcl 60 Mg Cap) 60 mg PO QAM [facility] Stop: 07/04/22 08:59 Last Admin: 06/04/22 09:43 Dose: 60 mg Famotidine (Famotidine 40 Mg Tablet) 40 mg PO BID [facility] Stop: 06/21/22 08:59 Last Admin: 06/04/22 08:22 Dose: 40 mg Fluticasone Propionate (Fluticasone Propionate Na Spr 16 Gm Btl) 2 sprays NA HS [facility] Stop: 06/21/22 20:59 Last Admin: 06/03/22 19:52 Dose: 2 sprays Fluticasone/Vilanterol (Fluticasone/Vilanterol 200/25mcg 14 Puffs/Inhaler) 1 puffs INH DAILY [facility] Stop: 06/21/22 08:59 Last Admin: 06/04/22 08:20 Dose: 1 puffs Folic Acid (Folic Acid 400 Mcg Tab) 800 mcg PO QAM [facility] Stop: 06/21/22 08:59 Last Admin: 06/04/22 08:23 Dose: 800 mcg Glucagon (Glucagon For Inj 1 Mg Vial) 1 mg SQ UD PRN; Protocol PRN Reason: Hypoglycemia Protocol Stop: 06/21/22 21:49 Glucose (Glucose 40% Gel 15 Gm Tube) 15 - 30 gm PO UD PRN; Protocol PRN Reason: Hypoglycemia Protocol Stop: 06/21/22 21:49 Glucose (Glucose 10 Tab/Tube) 4 - 8 tab PO UD PRN; Protocol PRN Reason: Hypoglycemia Treatment Stop: 06/21/22 21:49 Heparin Sodium (Porcine) (Heparin Sod 5,000 Unit/0.5 Ml Vial) 5,000 units SQ Q12 [facility] Stop: 06/22/22 20:59 Last Admin: 06/04/22 08:22 Dose: 5,000 units Daptomycin 550 mg/ Syringe 11 mls @ 5.5 mls/min IV Q24H [facility]; Protocol Stop: 06/06/22 08:29 Last Admin: 06/04/22 08:30 Dose: 5.5 mls/min Cefepime HCl 2,000 mg/ Syringe 20 mls @ 5 mls/min IV Q8H [facility]; Protocol Stop: 06/09/22 09:59 Last Admin: 06/04/22 09:45 Dose: 5 mls/min Insulin Aspart (Insulin Aspart Per Unit) 0 units SC ACHS [facility] Stop: 06/21/22 08:24 Last Admin: 06/04/22 12:23 Dose: 11 units Lamotrigine (Lamotrigine 100 Mg Tab) 100 mg PO HS [facility] Stop: 07/03/22 20:59 Last Admin: 06/03/22 19:50 Dose: 100 mg Levothyroxine Sodium (Levothyroxine Sodium 100 Mcg Tablet) 100 mcg PO DAILYBB [facility] Stop: 06/21/22 08:59 Last Admin: 06/04/22 05:35 Dose: 100 mcg Loperamide HCl (Loperamide Hcl 2 Mg Cap) 2 mg PO Q6H PRN PRN Reason: Diarrhea Stop: 06/29/22 20:07 Last Admin: 06/04/22 12:28 Dose: 2 mg Memantine (Memantine Hcl 10 Mg Tab) 10 mg PO BID [facility] Stop: 06/22/22 08:59 Last Admin: 06/04/22 08:21 Dose: 10 mg Metronidazole (Metronidazole 500 Mg Tab) 500 mg PO TID [facility] Stop: 06/09/22 13:59 Last Admin: 06/04/22 14:03 Dose: 500 mg Miscellaneous (Carbohydrates For Hypoglycemia ) 15 - 30 gm PO UD PRN PRN Reason: Hypoglycemia Protocol Stop: 06/21/22 21:49 Montelukast Sodium (Montelukast Sodium 10 Mg Tablet) 10 mg PO HS [facility] Stop: 06/21/22 20:59 Last Admin: 06/03/22 19:51 Dose: 10 mg Multi-Ingredient Mouthwash/Gargle (First - Mouthwash Blm 119 Ml) 5 ml PO Q8H [facility] Stop: 06/26/22 07:59 Last Admin: 06/04/22 08:17 Dose: 5 ml Oxycodone HCl (Oxycodone Hcl Soln 5 Mg/5 Ml Udc) 5 mg PO Q4H PRN PRN Reason: Pain Stop: 06/15/22 13:06 Last Admin: 06/04/22 08:16 Dose: 5 mg Pantoprazole Sodium (Pantoprazole 40 Mg Tab) 40 mg PO QAM [facility] Stop: 06/22/22 08:59 Last Admin: 06/04/22 09:43 Dose: 40 mg Phenol (Chloraseptic 1.4% Soln 180 Ml Btl) 2 sprays MT Q6H PRN PRN Reason: Sore Throat Stop: 06/29/22 20:07 Potassium Chloride (Potassium Chloride Pwd 20 Meq Pack) 20 meq PO BID [facility] Stop: 06/29/22 20:59 Last Admin: 06/04/22 08:20 Dose: Not Given Sodium Chloride (Sodium Chloride 0.65% Na Soln 45 Ml ([place])) 1 sprays NA Q6H PRN PRN Reason: Congestion Stop: 06/26/22 16:18 Last Admin: 05/29/22 04:03 Dose: 1 sprays
[2022-06-04] MEDS: MONTELUKAST SODIUM 10 MG TABLET PO SCH (21:08)
[2022-06-04] MEDS: DONEPEZIL HCL 10 MG TAB PO SCH (21:09)
[2022-06-04] MEDS: lamoTRIgine 100 MG TAB PO SCH (21:09)
[2022-06-04] MEDS: FLUTICASONE PROPIONATE NA SPR 16 GM BTL SCH (21:10)
[2022-06-04] MEDS: busPIRone 5 MG TAB PO PRN (21:50)
[2022-06-05] MEDS: CEFEPIME 2,000 MG in SYRINGE 0 ML IV SCH ×3 (01:35→17:29)
[2022-06-05] MEDS: oxyCODONE HCL SOLN 5 MG/5 ML UDC PO PRN ×4 (03:45→19:37)
[2022-06-05] MEDS: LEVOTHYROXINE SODIUM 100 MCG TABLET PO SCH (05:36)
[2022-06-05] MEDS: ACETAMINOPHEN 325 MG TAB PO PRN (05:37)
[2022-06-05] MEDS ORDERED: HYDROmorphone INJ 0.5 MG/0.5 ML SYR IV STA (06:34)
[2022-06-05 07:20] LABS: Basophils # (auto) 0.07 K/uL (0-0.2); Basophils % (auto) 1.1 %; Eosinophils # (auto) 0.21 K/uL (0-0.50); Eosinophils % (auto) 3.3 %; Hematocrit (blood only) 27.7 % (34.1-44.9); Hemoglobin 8.7 g/dl (12.0-16.0); Immature Granulocytes # (auto) 0.16 K/uL (0.00-0.02); Immature Granulocytes % (auto) 2.5 %; Lymphocytes # (auto) 1.14 K/uL (1.2-3.4); Lymphocytes % (auto) 17.9 %; Mean Corpuscular Hemoglobin 25.9 pg (25.0-34.0); Mean Corpuscular Hgb Conc 31.4 g/dL (32.0-36.0); Mean Corpuscular Volume 82.4 fL (80.0-100.0); Mean Platelet Volume 9.5 fL (9.4-12.3); Monocytes # (auto) 0.89 K/uL (0.24-0.82); Neutrophils # (auto) 3.89 K/uL (1.4-6.5); Neutrophils % (auto) 61.2 %; Platelet Count 433 K/uL (130-400); RDW Coefficient of Variation 17.9 % (11.5-14.5); RDW Standard Deviation 51.9 fL (36.4-46.3); Red Blood Count 3.36 M/uL (3.93-5.22); White Blood Count 6.36 K/ul (4.8-10.8)
[2022-06-05 07:38] LABS: BUN Creatinine Ratio 15.6 (10-20); Calcium 8.3 mg/dl (8.5-10.1); Creatinine Clr Calc Pharmacy 82.3 ml/min; Est GFR (African American) 101.9 ml/min; Est GFR (Non-African American) 87.9 ml/min; Magnesium 1.4 mg/dl (1.7-2.4); Potassium 3.5 mmol/L (3.5-5.1)
[2022-06-05] MEDS: DIPHENOXYLATE/ATROPINE 2.5/0.025MG TAB PO SCH ×3 (08:31→21:43)
[2022-06-05] MEDS: FOLIC ACID 400 MCG TAB PO SCH (08:32)
[2022-06-05] MEDS: FLUTICASONE/VILANTEROL 200/25MCG 14 PUFFS/INHALER INH SCH (08:32)
[2022-06-05] MEDS: DULoxetine HCL 60 MG CAP PO SCH (08:32)
[2022-06-05] MEDS: FAMOTIDINE 40 MG TABLET PO SCH ×2 (08:32→21:43)
[2022-06-05] MEDS: MEMANTINE HCL 10 MG TAB PO SCH ×2 (08:33→21:42)
[2022-06-05] MEDS: PANTOprazole 40 MG TAB PO SCH (08:33)
[2022-06-05] MEDS: HEPARIN SOD 5,000 UNIT/0.5 ML VIAL SQ SCH ×2 (08:33→21:43)
[2022-06-05] MEDS: metroNIDAZOLE 500 MG TAB PO SCH ×3 (08:33→21:42)
[2022-06-05] MEDS: POTASSIUM CHLORIDE PWD 20 MEQ PACK PO SCH ×2 (08:34→21:43)
[2022-06-05] MEDS: INSULIN ASPART PER UNIT SC SCH ×4 (08:40→21:53)
[2022-06-05] MEDS: DAPTOmycin 550 MG in SYRINGE 0 ML IV SCH (08:41)
[2022-06-05] MEDS: MAGNESIUM SULFATE / D5W 1 GM/100 ML BAG IV SCH ×2 (08:41→10:32)
[2022-06-05] MEDS: FIRST - Mouthwash BLM 119 ML PO SCH ×2 (08:42→15:37)
[2022-06-05] MEDS ORDERED: LANTUS PER UNIT CHARGE SQ ONE (10:30)
[2022-06-05] MEDS: busPIRone 5 MG TAB PO PRN (21:41)
[2022-06-05] MEDS: FLUTICASONE PROPIONATE NA SPR 16 GM BTL SCH (21:42)
[2022-06-05] MEDS: LOPERAMIDE HCL 2 MG CAP PO PRN (21:42)
[2022-06-05] MEDS: MONTELUKAST SODIUM 10 MG TABLET PO SCH (21:42)
[2022-06-05] MEDS: lamoTRIgine 100 MG TAB PO SCH (21:42)
[2022-06-05] MEDS: DONEPEZIL HCL 10 MG TAB PO SCH (21:43)
[2022-06-06] MEDS: FIRST - Mouthwash BLM 119 ML PO SCH ×3 (00:26→16:57)
[2022-06-06] MEDS: oxyCODONE HCL SOLN 5 MG/5 ML UDC PO PRN ×4 (00:26→20:13)
[2022-06-06] MEDS: CEFEPIME 2,000 MG in SYRINGE 0 ML IV SCH ×3 (03:17→16:58)
[2022-06-06] MEDS: ACETAMINOPHEN 325 MG TAB PO PRN ×2 (03:19→23:55)
[2022-06-06] MEDS: LEVOTHYROXINE SODIUM 100 MCG TABLET PO SCH (04:52)
[2022-06-06] MEDS: busPIRone 5 MG TAB PO PRN (05:52)
[2022-06-06] MEDS: LANTUS PER UNIT CHARGE SQ SCH ×2 (08:31→20:41)
[2022-06-06] MEDS: INSULIN ASPART PER UNIT SC SCH ×4 (08:31→20:41)
[2022-06-06] MEDS: POTASSIUM CHLORIDE PWD 20 MEQ PACK PO SCH ×2 (08:39→20:20)
[2022-06-06] MEDS: LOPERAMIDE HCL 2 MG CAP PO PRN (08:39)
[2022-06-06] MEDS: DIPHENOXYLATE/ATROPINE 2.5/0.025MG TAB PO SCH ×3 (08:40→20:18)
[2022-06-06] MEDS: FLUTICASONE/VILANTEROL 200/25MCG 14 PUFFS/INHALER INH SCH (08:40)
[2022-06-06] MEDS: PANTOprazole 40 MG TAB PO SCH (08:42)
[2022-06-06] MEDS: MEMANTINE HCL 10 MG TAB PO SCH ×2 (08:42→20:16)
[2022-06-06] MEDS: HEPARIN SOD 5,000 UNIT/0.5 ML VIAL SQ SCH ×2 (08:42→20:15)
[2022-06-06] MEDS: metroNIDAZOLE 500 MG TAB PO SCH ×3 (08:43→20:13)
[2022-06-06] MEDS: FAMOTIDINE 40 MG TABLET PO SCH ×2 (08:44→20:17)
[2022-06-06] MEDS: FOLIC ACID 400 MCG TAB PO SCH (08:44)
[2022-06-06] MEDS: DULoxetine HCL 60 MG CAP PO SCH (08:44)
[2022-06-06] MEDS ORDERED: FLUCONAZOLE 50 MG TAB PO ONE (11:30)
[2022-06-06] MEDS: NYSTATIN 500,000 UNIT TAB PO SCH ×3 (12:59→20:14)
--- NOTE | 2022-06-06 16:18 | Hospitalist Progress Note ---
Date of Service June 05, 2022 Assessment & Plan (1) Overdose of trazodone: Plan: patient expressed intentional overdose of trazodone found to be somnolent but arousable found to have WBC 34, lactic acidosis 7, Cr 2.35 (baseline 0.81), bicarb 19 Received IVF Poison control contacted recommended to monitor EKG for prolong QTC Psych on board-appreciate input and recommendation 1 to 1 sitter discontinued but Pt cannot leave AMA Continue to hold psych medications for now Need to reach psych when to resume psych med Appreciate psych input and recommendation-antipsychotic medications have been started No acute anxiety and/or depression Appreciate psychiatric update Oral thrush Has been having pain with swallowing and also chewing Received diclofenac on 150 mg daily x3 days in the past for oral thrush Will give the same for now Her mouth ulceration has been improving Has been tolerating diet Ongoing diarrhea C. difficile toxin has been negative Likely secondary to use of antibiotic Will try Imodium and may need to add Bentyl C. difficile toxin has been negative again on 06/01/2022 Has rectal tube in place to prevent contamination of the sacral wound Will start Lomotil 3 times a day and continue with Imodium as needed to control diarrhea Diarrhea is controlled and will discontinue rectal tube Diarrhea is controlled now and has had only 1 bowel movement today We will continue current dose of Lomotil and Imodium as needed Diarrhea seems to be controlling (2) Sepsis: Plan: Bacteremia-the source being buttock abscess as below WBC on admission 34K, WBC continue trending down Elevated procalcitonin Blood cx positive for staph aureus, pseudomonas and alpha strep not strep pneumonia/ enterococcus Repeat blood cx no grow ID recommended to continue daptomycin; Zosyn discontinued and started on Cefepime and flagyl Echo showed no evidence of vegetation Buttock abscess S/P day #11 Debridement Right Buttock Abscess(Right) performed today by Dr. Amador culture from the wound grew staph aureus Continue current abx therapy with daptomycin, cefepime and flagyl Wound care nurse on board recommended daily dressing change wound care will evaluate for wound vac placement Follow up with ID for final abx when ready to discharge Rectal tube in situ-we will discontinue rectal tube Try to talk to ID to determine the course and the type of antibiotic (3) Hyponatremia: Plan: likely due to decrease po intake and diarrhea Na on admission 121 Nephrology on board Na improved to 137 Clinically improves-sodium level is now 138 as of 05/31/2022 (4) Hypokalemia: Plan: K 3.1 today K replaced Continue monitor BMP Likely secondary to ongoing diarrhea-we will supplement And hypomagnesemia-we will supplement and monitor (5) Lactic acidosis: Plan: likely related to acute overdose received IVF resolved (6) Leukocytosis: Plan: likely in the setting of acute overdose vs sepsis Continue IVF abx WBC continues trending down (7) Chronic pain: Plan: Continue to holding pain medications given overdose Will resume pain med and titrate when able Continue Tylenol prn (8) Diabetes mellitus, type II: Plan: Most recent hab1c 6.9 Continue to hold metformin pharmacy on board for glycemic management Continue monitor BS (9) Depression: Plan: Suicidal ideation leading to acute overdose case discussed with Psych Continue to hold psych medication Will discontinue 1 to 1 sitter Cannot leave AMA No more suicidal ideation and antipsychotic medications have been restarted (10) Hypothyroidism: Plan: - continue levothyroxine (11) Anemia: Plan: Hgb 9.8 on presentation, baseline around 12 Hgb 9.4 today no signs of active bleeding Continue monitor H/H Plan DVT ppx: on Heparin subq Full Code Disposition Will discharbe once medically stable Admission and Anticipated Discharge Date Admission Date: May 22, 2022 Subjective 05/31/2022 The patient was seen and examined in telemetry unit She has been complaining of sore mouth due to candidiasis Denies any other significant symptoms She has had diclofenac 150 mg daily for 3 days for this kind of candidiasis from her PCP Has been having diarrhea 06/01/2022 The patient was seen and examined in telemetry unit She continues to have diarrhea and complains of more pain in the sacral wound area Denies any chest pain, shortness of breath or palpitation She is not requiring any more one-to-one sitter 06/02/2022 The patient was seen and examined in telemetry unit She has been complaining of ongoing diarrhea without any abdominal pain, nausea or vomiting Her mouth ulcers have been improving 06/03/2022 The patient was seen and examined in telemetry unit She has been feeling much better and the diarrhea seems to be controlled Denies any other significant symptoms Her oral ulcerations have been improving 06/04/2022 The patient was seen and examined in telemetry unit She has been feeling much better the diarrhea is controlled Denies any significant pain, no fever and or chills 06/05/2022 The patient was seen and examined in telemetry unit She has been feeling much better and the diarrhea seems to be controlling Denies any fever and no chills Review of Systems Review of Systems: All systems reviewed and are unremarkable except as noted below Physical Exam Physical Exam: Lying in bed comfortably Constitutional: well developed, well nourished and + ill appearing Eyes: PERRL, conjunctivae normal, anicteric sclerae ENMT: external ear and nose normal, oropharynx normal Neck: trachea midline, no thyromegaly Respiratory: no respiratory distress Auscultation: lungs clear to auscultation bilaterally Cardiovascular: Rate/Rhythm: regular rate and regular rhythm; not tachycardic Heart Sounds: normal S1 and normal S2; no murmur Extremities: + edema (Trace edema bilaterally) Gastrointestinal (Abdomen): Inspection/Auscultation: normal bowel sounds; abdomen not distended Percussion/Palpation: abdomen soft; abdomen nontender Neurologic: normal touch/pain/proprioception and moves all extremities; no focal motor deficits Psychiatric: A+Ox3, euthymic affect Lymphatic: no cervical or axillary lymphadenopathy Results & Data Results & Data ([facility]) Vital Signs (Past 12 Hours) Vital Signs Temp Pulse Resp BP Pulse Ox O2 Del Method 06/06/22 15:05 36.9 C 105 H 19 144/67 H 95 Room Air 06/06/22 11:24 37.1 C 105 H 19 142/84 H 95 Room Air 06/06/22 07:09 36.7 C 20 162/91 H 95 Room Air
--- NOTE | 2022-06-06 16:27 | Hospitalist Progress Note ---
Date of Service June 06, 2022 Assessment & Plan (1) Overdose of trazodone: Plan: patient expressed intentional overdose of trazodone found to be somnolent but arousable found to have WBC 34, lactic acidosis 7, Cr 2.35 (baseline 0.81), bicarb 19 Received IVF Poison control contacted recommended to monitor EKG for prolong QTC Psych on board-appreciate input and recommendation 1 to 1 sitter discontinued but Pt cannot leave AMA Continue to hold psych medications for now Need to reach psych when to resume psych med Appreciate psych input and recommendation-antipsychotic medications have been started No acute anxiety and/or depression Appreciate psychiatric update and the medications will be updated as per psychiatrist Oral thrush Has been having pain with swallowing and also chewing Received diclofenac on 150 mg daily x3 days in the past for oral thrush Will give the same for now Her mouth ulceration has been improving Has been tolerating diet We will start oral nystatin and also give 1 dose of Diflucan Ongoing diarrhea C. difficile toxin has been negative Likely secondary to use of antibiotic Will try Imodium and may need to add Bentyl C. difficile toxin has been negative again on 06/01/2022 Has rectal tube in place to prevent contamination of the sacral wound Will start Lomotil 3 times a day and continue with Imodium as needed to control diarrhea Diarrhea is controlled and will discontinue rectal tube Diarrhea is controlled now and has had only 1 bowel movement today We will continue current dose of Lomotil and Imodium as needed Diarrhea seems to be controlling (2) Sepsis: Plan: Bacteremia-the source being buttock abscess as below WBC on admission 34K, WBC continue trending down Elevated procalcitonin Blood cx positive for staph aureus, pseudomonas and alpha strep not strep pneumonia/ enterococcus Repeat blood cx no grow ID recommended to continue daptomycin; Zosyn discontinued and started on Cefepime and flagyl Echo showed no evidence of vegetation Buttock abscess S/P day #11+ Debridement Right Buttock Abscess(Right) performed today by Dr. Amador culture from the wound grew staph aureus Continue current abx therapy with daptomycin, cefepime and flagyl Wound care nurse on board recommended daily dressing change wound care will evaluate for wound vac placement Follow up with ID for final abx when ready to discharge Rectal tube in situ-we will discontinue rectal tube Try to talk to ID to determine the course and the type of antibiotic Discussed with infectious disease doctor in [place] Dr. Lawson Will get CT scan of the abdomen pelvis to document any residual abscess and repeat surgical evaluation if there is any pockets of infection Will need 4 to 6 weeks of intravenous antibiotic with daptomycin and cefepime fo r bacteremia Flagyl will not be needed if there is no abscess (3) Hyponatremia: Plan: likely due to decrease po intake and diarrhea Na on admission 121 Nephrology on board Na improved to 137 Clinically improves-sodium level is now 138 as of 05/31/2022 (4) Hypokalemia: Plan: K 3.1 today K replaced Continue monitor BMP Likely secondary to ongoing diarrhea-we will supplement And hypomagnesemia-we will supplement and monitor Sodium level is 135 (5) Lactic acidosis: Plan: likely related to acute overdose received IVF resolved (6) Leukocytosis: Plan: likely in the setting of acute overdose vs sepsis Continue IVF abx WBC continues trending down (7) Chronic pain: Plan: Continue to holding pain medications given overdose Will resume pain med and titrate when able Continue Tylenol prn (8) Diabetes mellitus, type II: Plan: Most recent hab1c 6.9 Continue to hold metformin pharmacy on board for glycemic management Continue monitor BS (9) Depression: Plan: Suicidal ideation leading to acute overdose case discussed with Psych Continue to hold psych medication Will discontinue 1 to 1 sitter Cannot leave AMA No more suicidal ideation and antipsychotic medications have been restarted (10) Hypothyroidism: Plan: - continue levothyroxine (11) Anemia: Plan: Hgb 9.8 on presentation, baseline around 12 Hgb 9.4 today no signs of active bleeding Continue monitor H/H Plan DVT ppx: on Heparin subq Full Code Disposition Will discharbe once medically stable Area of aging is involved and the patient may be leaving in a day or 2 Admission and Anticipated Discharge Date Admission Date: May 22, 2022 Subjective 05/31/2022 The patient was seen and examined in telemetry unit She has been complaining of sore mouth due to candidiasis Denies any other significant symptoms She has had diclofenac 150 mg daily for 3 days for this kind of candidiasis from her PCP Has been having diarrhea 06/01/2022 The patient was seen and examined in telemetry unit She continues to have diarrhea and complains of more pain in the sacral wound area Denies any chest pain, shortness of breath or palpitation She is not requiring any more one-to-one sitter 06/02/2022 The patient was seen and examined in telemetry unit She has been complaining of ongoing diarrhea without any abdominal pain, nausea or vomiting Her mouth ulcers have been improving 06/03/2022 The patient was seen and examined in telemetry unit She has been feeling much better and the diarrhea seems to be controlled Denies any other significant symptoms Her oral ulcerations have been improving 06/04/2022 The patient was seen and examined in telemetry unit She has been feeling much better the diarrhea is controlled Denies any significant pain, no fever and or chills 06/05/2022 The patient was seen and examined in telemetry unit She has been feeling much better and the diarrhea seems to be controlling Denies any fever and no chills 06/06/2022 The patient was seen and examined in telemetry unit She complains to have vaginal itching Oral thrush seems to be worsening No fever and or chills and has minimal pain in the right buttock Review of Systems Review of Systems: All systems reviewed and are unremarkable except as noted below Gastrointestinal: Sore mouth Physical Exam Physical Exam: Lying in bed comfortably Constitutional: well developed, well nourished and + ill appearing Eyes: PERRL, conjunctivae normal, anicteric sclerae ENMT: external ear and nose normal, oropharynx normal Neck: trachea midline, no thyromegaly Respiratory: no respiratory distress Auscultation: lungs clear to auscultation bilaterally Cardiovascular: Rate/Rhythm: regular rate and regular rhythm; not tachycardic Heart Sounds: normal S1 and normal S2; no murmur Extremities: + edema (Trace edema bilaterally) Gastrointestinal (Abdomen): Inspection/Auscultation: normal bowel sounds; abdomen not distended Percussion/Palpation: abdomen soft; abdomen nontender Skin: Minimal erythema involving the right buttock near to the cleft with a small hole without much drainage Neurologic: normal touch/pain/proprioception and moves all extremities; no focal motor deficits Psychiatric: A+Ox3, euthymic affect Lymphatic: no cervical or axillary lymphadenopathy Results & Data Results & Data ([facility]) Vital Signs (Past 12 Hours) Vital Signs Temp Pulse Resp BP Pulse Ox O2 Del Method 06/06/22 15:05 36.9 C 105 H 19 144/67 H 95 Room Air 06/06/22 11:24 37.1 C 105 H 19 142/84 H 95 Room Air 06/06/22 07:09 36.7 C 20 162/91 H 95 Room Air Medications Administered Current Inpatient Medications Acetaminophen (Acetaminophen 325 Mg Tab) 650 mg PO Q4H PRN PRN Reason: Pain or Fever Stop: 06/23/22 01:06 Last Admin: 06/06/22 03:19 Dose: 650 mg Albuterol (Albuterol Hfa 8 Gm Inhaler) 2 puffs INH Q4H PRN PRN Reason: SHORT OF BREATH Stop: 06/21/22 08:46 Albuterol (Albuterol 0.083% Nebu Soln 3 Ml Vial) 2.5 mg INH ONCE PRN; Protocol PRN Reason: SOB/WHEEZING Stop: 06/21/22 08:24 Buspirone HCl (Buspirone 5 Mg Tab) 5 mg PO TID PRN PRN Reason: Anxiety Stop: 07/01/22 15:02 Last Admin: 06/06/22 05:52 Dose: 5 mg Dextrose (Dextrose 50% 50 Ml Syringe) 25 - 50 ml IV UD PRN; Protocol PRN Reason: Hypoglycemia Protocol Stop: 06/21/22 21:49 Last Admin: 05/22/22 21:58 Dose: 25 ml Diphenoxylate HCl/Atropine (Diphenoxylate/Atropine 2.5/0.025mg Tab) 1 tab PO TID SARAI Stop: 07/02/22 20:59 Last Admin: 06/06/22 13:00 Dose: 1 tab Donepezil HCl (Donepezil Hcl 10 Mg Tab) 10 mg PO HS SARAI Stop: 06/21/22 20:59 Last Admin: 06/05/22 21:43 Dose: 10 mg Duloxetine HCl (Duloxetine Hcl 60 Mg Cap) 60 mg PO QAM SARAI Stop: 07/04/22 08:59 Last Admin: 06/06/22 08:44 Dose: 60 mg Famotidine (Famotidine 40 Mg Tablet) 40 mg PO BID SARAI Stop: 06/21/22 08:59 Last Admin: 06/06/22 08:44 Dose: 40 mg Fluticasone Propionate (Fluticasone Propionate Na Spr 16 Gm Btl) 2 sprays NA HS SARAI Stop: 06/21/22 20:59 Last Admin: 06/05/22 21:42 Dose: 2 sprays Fluticasone/Vilanterol (Fluticasone/Vilanterol 200/25mcg 14 Puffs/Inhaler) 1 puffs INH DAILY [facility] Stop: 06/21/22 08:59 Last Admin: 06/06/22 08:40 Dose: 1 puffs Folic Acid (Folic Acid 400 Mcg Tab) 800 mcg PO QAM SARAI Stop: 06/21/22 08:59 Last Admin: 06/06/22 08:44 Dose: 800 mcg Glucagon (Glucagon For Inj 1 Mg Vial) 1 mg SQ UD PRN; Protocol PRN Reason: Hypoglycemia Protocol Stop: 06/21/22 21:49 Glucose (Glucose 40% Gel 15 Gm Tube) 15 - 30 gm PO UD PRN; Protocol PRN Reason: Hypoglycemia Protocol Stop: 06/21/22 21:49 Glucose (Glucose 10 Tab/Tube) 4 - 8 tab PO UD PRN; Protocol PRN Reason: Hypoglycemia Treatment Stop: 06/21/22 21:49 Heparin Sodium (Porcine) (Heparin Sod 5,000 Unit/0.5 Ml Vial) 5,000 units SQ Q12 SARAI Stop: 06/22/22 20:59 Last Admin: 06/06/22 08:42 Dose: 5,000 units Cefepime HCl 2,000 mg/ Syringe 20 mls @ 5 mls/min IV Q8H [facility]; Protocol Stop: 06/09/22 09:59 Last Admin: 06/06/22 08:39 Dose: 5 mls/min Insulin Aspart (Insulin Aspart Per Unit) 0 units SC ACHS [facility] Stop: 06/21/22 08:24 Last Admin: 06/06/22 12:09 Dose: 7 units Insulin Glargine (Lantus Per Unit Charge) 10 units SQ BID [facility]AI Stop: 07/06/22 08:59 Last Admin: 06/06/22 08:31 Dose: 10 units Lamotrigine (Lamotrigine 100 Mg Tab) 100 mg PO HS [facility] Stop: 07/03/22 20:59 Last Admin: 06/05/22 21:42 Dose: 100 mg Levothyroxine Sodium (Levothyroxine Sodium 100 Mcg Tablet) 100 mcg PO DAILYBB [facility] Stop: 06/21/22 08:59 Last Admin: 06/06/22 04:52 Dose: 100 mcg Loperamide HCl (Loperamide Hcl 2 Mg Cap) 2 mg PO Q6H PRN PRN Reason: Diarrhea Stop: 06/29/22 20:07 Last Admin: 06/06/22 08:39 Dose: 2 mg Memantine (Memantine Hcl 10 Mg Tab) 10 mg PO BID [facility] Stop: 06/22/22 08:59 Last Admin: 06/06/22 08:42 Dose: 10 mg Metronidazole (Metronidazole 500 Mg Tab) 500 mg PO TID [facility] Stop: 06/09/22 13:59 Last Admin: 06/06/22 13:00 Dose: 500 mg Miscellaneous (Carbohydrates For Hypoglycemia ) 15 - 30 gm PO UD PRN PRN Reason: Hypoglycemia Protocol Stop: 06/21/22 21:49 Montelukast Sodium (Montelukast Sodium 10 Mg Tablet) 10 mg PO HS [facility] Stop: 06/21/22 20:59 Last Admin: 06/05/22 21:42 Dose: 10 mg Multi-Ingredient Mouthwash/Gargle (First - Mouthwash Blm 119 Ml) 5 ml PO Q8H [facility] Stop: 06/26/22 07:59 Last Admin: 06/06/22 08:37 Dose: 5 ml Nystatin (Nystatin 500,000 Unit Tab) 500,000 units PO QID [facility] Stop: 06/16/22 12:59 Last Admin: 06/06/22 12:59 Dose: 500,000 units Oxycodone HCl (Oxycodone Hcl Soln 5 Mg/5 Ml Udc) 5 mg PO Q4H PRN PRN Reason: Pain Stop: 06/15/22 13:06 Last Admin: 06/06/22 08:38 Dose: 5 mg Pantoprazole Sodium (Pantoprazole 40 Mg Tab) 40 mg PO QAM [facility] Stop: 06/22/22 08:59 Last Admin: 06/06/22 08:42 Dose: 40 mg Phenol (Chloraseptic 1.4% Soln 180 Ml Btl) 2 sprays MT Q6H PRN PRN Reason: Sore Throat Stop: 06/29/22 20:07 Potassium Chloride (Potassium Chloride Pwd 20 Meq Pack) 20 meq PO BID [facility]AI Stop: 06/29/22 20:59 Last Admin: 06/06/22 08:39 Dose: Not Given Sodium Chloride (Sodium Chloride 0.65% Na Soln 45 Ml (Lozano)) 1 sprays NA Q6H PRN PRN Reason: Congestion Stop: 06/26/22 16:18 Last Admin: 05/29/22 04:03 Dose: 1 sprays
[2022-06-06] MEDS ORDERED: AMOXICILLIN/CLAVULANATE 875 MG TAB PO SCH (17:00)
--- NOTE | 2022-06-06 18:04 | CT Scan Report ---
CT OF THE ABDOMEN AND PELVIS WITHOUT CONTRAST CLINICAL HISTORY: Evaluate for right buttock abscess. COMPARISON STUDY: CT of the abdomen and pelvis May 22, 2022. TECHNIQUE: Axial images of the abdomen and pelvis were obtained without IV contrast. Images were revi ewed in the axial, sagittal, and coronal planes. Automated exposure control was utilized for the wei dy. A dose lowering technique was utilized adhering to the principles of ALARA. FINDINGS: Small left and trace right pleural effusions are noted. Scattered subpleural ground glass o pacities within the lower lungs are noted. Evaluation of the abdomen and pelvis is suboptimal on this unenhanced examination. No pneumatosis, free air or portal venous gas is present. Unenhanced images of the liver, spleen, adrenal glands, kidneys and pancreas are unremarkable. There is no biliary duct al dilatation. Gallbladder is not visualized. There is no hydronephrosis. No evidence for a bowel obs truction. Moderate amount of stool within the colon is noted. Sigmoid diverticulosis is noted without evidence for acute diverticulitis. The appendix is normal. No intra-abdominal fluid collection is pr esent. Postoperative findings within the spine are noted. Postoperative appearance is unchanged since CT of May 22, 2022. Note is again made of extensive inflammation within the right buttock extendin g into the right aspect of the perineum and right ischioanal and ischiorectal spaces. There is associ ated soft tissue gas. This gas is new since prior CT. A few tiny intramuscular fluid collections with in the inferior right gluteus blake measure up to 1.2 cm. These are suboptimally assessed on this u nenhanced examination. Mass effect from the inflammation has mildly decreased since CT of May 22. Body wall edema is present. No CT evidence for acute osteomyelitis. [place] balloon and gas within the bladder are noted. IMPRESSION: 1. Persistent extensive inflammation within the right buttock involving the inferior right gluteus ma ximus muscle which extends into the right ischioanal and ischiorectal fossae and right perineum. Inte rval decrease in mass effect since prior CT; however, interval development of extensive soft tissue g as. This gas is nonspecific and could be postsurgical however necrotizing fasciitis is the diagnosis of exclusion. Surgical consultation is recommended. 2. A few small intramuscular fluid collections within the inferior right gluteus blake, measuring u p to 1.2 cm. These favor small abscesses. 3. Small left and trace right pleural effusions. Mild subpleural ground glass opacities within the anabelle ngs which could be infectious or atelectatic. 4. No bowel obstruction. Moderate amount of stool within the colon. ACT 112: Negative or not required by law. Electronically signed by: Madhav Schumacher M.D. 06/06/2022 6:02 PM
[2022-06-06] MEDS: FLUTICASONE PROPIONATE NA SPR 16 GM BTL SCH (20:15)
[2022-06-06] MEDS: MONTELUKAST SODIUM 10 MG TABLET PO SCH (20:16)
[2022-06-06] MEDS: lamoTRIgine 100 MG TAB PO SCH (20:17)
[2022-06-06] MEDS: DONEPEZIL HCL 10 MG TAB PO SCH (20:17)
[2022-06-07] MEDS: CEFEPIME 2,000 MG in SYRINGE 0 ML IV SCH ×3 (01:12→17:02)
[2022-06-07] MEDS: FIRST - Mouthwash BLM 119 ML PO SCH ×3 (01:12→15:37)
[2022-06-07] MEDS: oxyCODONE HCL SOLN 5 MG/5 ML UDC PO PRN ×3 (01:19→17:12)
[2022-06-07] MEDS: LEVOTHYROXINE SODIUM 100 MCG TABLET PO SCH (05:36)
[2022-06-07] MEDS: MEMANTINE HCL 10 MG TAB PO SCH (08:08)
[2022-06-07] MEDS: FAMOTIDINE 40 MG TABLET PO SCH (08:08)
[2022-06-07] MEDS: metroNIDAZOLE 500 MG TAB PO SCH ×2 (08:08→13:20)
[2022-06-07] MEDS: DULoxetine HCL 60 MG CAP PO SCH (08:08)
[2022-06-07] MEDS: FOLIC ACID 400 MCG TAB PO SCH (08:08)
[2022-06-07] MEDS: PANTOprazole 40 MG TAB PO SCH (08:08)
[2022-06-07] MEDS: DIPHENOXYLATE/ATROPINE 2.5/0.025MG TAB PO SCH ×2 (08:09→16:57)
[2022-06-07] MEDS: FLUTICASONE/VILANTEROL 200/25MCG 14 PUFFS/INHALER INH SCH (08:10)
[2022-06-07] MEDS: NYSTATIN 500,000 UNIT TAB PO SCH ×2 (08:11→15:17)
[2022-06-07] MEDS: HEPARIN SOD 5,000 UNIT/0.5 ML VIAL SQ SCH (08:11)
[2022-06-07] MEDS: POTASSIUM CHLORIDE PWD 20 MEQ PACK PO SCH (08:13)
[2022-06-07] MEDS: LANTUS PER UNIT CHARGE SQ SCH (08:23)
[2022-06-07] MEDS: INSULIN ASPART PER UNIT SC SCH ×3 (08:23→16:51)
[2022-06-07] MEDS ORDERED: DAPTOmycin 550 MG in SYRINGE 0 ML IV SCH (09:00)
[2022-06-07 09:17] LABS: Basophils # (auto) 0.08 K/uL (0-0.2); Basophils % (auto) 1.4 %; Eosinophils % (auto) 5.2 %; Hematocrit (blood only) 30.2 % (34.1-44.9); Hemoglobin 9.3 g/dl (12.0-16.0); Immature Granulocytes # (auto) 0.17 K/uL (0.00-0.02); Lymphocytes # (auto) 1.43 K/uL (1.2-3.4); Mean Corpuscular Hemoglobin 25.8 pg (25.0-34.0); Mean Corpuscular Hgb Conc 30.8 g/dL (32.0-36.0); Mean Corpuscular Volume 83.7 fL (80.0-100.0); Mean Platelet Volume 10.5 fL (9.4-12.3); Monocytes # (auto) 1.11 K/uL (0.24-0.82); Monocytes % (auto) 19.4 %; Neutrophils # (auto) 2.63 K/uL (1.4-6.5); Platelet Count 433 K/uL (130-400); RDW Coefficient of Variation 18.6 % (11.5-14.5); RDW Standard Deviation 54.6 fL (36.4-46.3); Red Blood Count 3.61 M/uL (3.93-5.22); White Blood Count 5.72 K/ul (4.8-10.8)
[2022-06-07 10:01] LABS: BUN Creatinine Ratio 10.6 (10-20); Calcium 8.3 mg/dl (8.5-10.1); Creatinine Clr Calc Pharmacy 77.4 ml/min; Est GFR (African American) 100.9 ml/min; Magnesium 1.6 mg/dl (1.7-2.4); Potassium 3.5 mmol/L (3.5-5.1)
[2022-06-07] MEDS: busPIRone 5 MG TAB PO PRN (11:20)
[2022-06-07] MEDS: ACETAMINOPHEN 325 MG TAB PO PRN (13:19)
--- NOTE | 2022-06-07 13:42 | Surgery Consultation ---
Date of Consultation June 07, 2022 Assessment & Plan (1) Abrasion of buttock, right, infected: pt is a 76 year-old female who was admitted to hospital for right buttock abscess, pt is S/P I/D right buttock abscess, POD 12, pt had CT scan today-IMPRESSION: 1. Persistent extensive inflammation within the right buttock involving the inferior right gluteus blake muscle which extends into the right ischioanal and ischiorectal fossae and right perineum. Interval decrease in mass effect since prior CT; however, interval development of extensive soft tissue gas. This gas is nonspecific and could be postsurgical however necrotizing fasciitis is the diagnosis of exclusion. Surgical consultation is recommended. 2. A few small intramuscular fluid collections within the inferior right gluteus blake, measuring up to 1.2 cm. These favor small abscesses. 3. Small left and trace right pleural effusions. Mild subpleural ground glass opacities within the lungs which could be infectious or atelectatic. 4. No bowel obstruction. Moderate amount of stool within the colon. IMP: right buttock infection, possible necrotizing fasciitis, plan, base on CT scan finding, deep infection possible necrotizing fasciitis, recommend to transfer to [facility] for further diagnosis and treatment, D/W benefits, risks and alternatives of the transfer with pt and on phone her son Landon Ritter, they understood, they agree with transfer, I answered all questions, D/W DR. Moreno, Magdaleno, Daniel, History of Present Illness Reason for Consultation: right buttock infection Requesting Physician: Josh Dolan MD Attending Physician: Josh Dolan MD History of Present Illness CC: right buttock infection, HPI, pt is a 76 year-old female who was admitted to [facility] for right buttock abscess, pt had I/D right buttock abscess 12 days ago, pt is doing better, no fever, but pt is still have some pain on right buttock area, no significant drainage on incision site, WBC normal, pt had CT scan done to day- IMPRESSION: 1. Persistent extensive inflammation within the right buttock involving the inferior right gluteus blake muscle which extends into the right ischioanal and ischiorectal fossae and right perineum. Interval decrease in mass effect since prior CT; however, interval development of extensive soft tissue gas. This gas is nonspecific and could be postsurgical however necrotizing fasciitis is the diagnosis of exclusion. Surgical consultation is recommended. 2. A few small intramuscular fluid collections within the inferior right gluteus blake, measuring up to 1.2 cm. These favor small abscesses. 3. Small left and trace right pleural effusions. Mild subpleural ground glass opacities within the lungs which could be infectious or atelectatic. 4. No bowel obstruction. Moderate amount of stool within the colon. I ( Sarah Amador MD ) got a call re-consult right buttock infection with new finding on CT scan, I reviewed pt's H/P, labs, Ct scan with pt, Allergies Allergy/AdvReac Type Severity Reaction Status Date / Time miconazole Allergy Intermediate SEVERE Verified 05/22/22 02:54 BURNING ITCHING morphine Allergy Intermediate ITCHING, Verified 05/22/22 02:54 ABD PAIN erythromycin base Allergy Unknown Unknown Verified 05/22/22 02:54 baclofen AdvReac Intermediate NAUSEA/VOMI Verified 05/22/22 02:54 TING clonazepam AdvReac Intermediate PSYCH Verified 05/22/22 02:54 COMPLICATIONS codeine AdvReac Intermediate DYSPEPSIA Verified 05/22/22 02:54 doxycycline AdvReac Intermediate GASTRITIS Verified 05/22/22 02:54 gabapentin AdvReac Intermediate FATIGUE Verified 05/22/22 02:54 Macrolide Antibiotics AdvReac Intermediate DYSPEPSIA Verified 05/22/22 02:54 (TOLERATED Z-PACK) primidone AdvReac Intermediate PSYCH Verified 05/22/22 02:54 COMPLICATIONS Home Medications Medication Instructions Recorded Confirmed Type albuterol sulfate 90 mcg/actuation 2 inh inhalation Q4H PRN SHORT OF 02/13/19 05/22/22 History breath activated powder inhaler BREATH bupropion HCl 100 mg tablet,12 hr 100 mg PO BID 02/13/19 05/22/22 History sustained-release (Wellbutrin SR) celecoxib 200 mg capsule (Celebrex) 200 mg PO QAM 02/13/19 05/22/22 History cholecalciferol (vitamin D3) 25 1,000 unit PO QAM 02/13/19 05/22/22 History mcg (1,000 unit) tablet (Vitamin D3) cyclobenzaprine 5 mg tablet 5 mg PO Q6H PRN Pain 02/13/19 05/22/22 History donepezil 10 mg tablet (Aricept) 10 mg PO HS 02/13/19 05/22/22 History esomeprazole magnesium 40 mg 40 mg PO [facility] 02/13/19 05/22/22 History capsule,delayed release (Nexium) ezetimibe 10 mg-simvastatin 20 mg 1 tab PO HS 02/13/19 05/22/22 History tablet (Vytorin) fluticasone propionate 50 2 spray intranasal 02/13/19 05/22/22 History mcg/actuation nasal spray,suspension (Flonase Allergy Relief) folic acid 0.8 mg capsule 0.8 mg PO [facility] 02/13/19 05/22/22 History lamotrigine 150 mg tablet 150 mg PO 02/13/19 05/22/22 History (Lamictal) levothyroxine 100 mcg tablet 100 mcg PO [facility] 02/13/19 05/22/22 History memantine 14 mg capsule 14 mg PO [facility] 02/13/19 05/22/22 History sprinkle,extended release 24hr (Namenda XR) metformin 1,000 mg tablet 1,000 mg PO BID 02/13/19 05/22/22 History montelukast 10 mg tablet 10 mg PO 02/13/19 05/22/22 History (Singulair) qdzyhqbsuitk-hxuaggfj-xcocjo 1 tab PO [facility] 02/13/19 05/22/22 History tablet (Multivitamin 50 Plus tablet) vitamin E 268 mg (400 unit) capsule 400 unit PO 02/13/19 05/22/22 History trazodone 50 mg tablet 25 mg PO 11/13/19 05/22/22 History famotidine 40 mg tablet (Pepcid) 40 mg PO BID 04/12/20 05/22/22 History duloxetine 60 mg capsule,delayed 60 mg PO BID 05/19/21 05/22/22 History release (Cymbalta) furosemide 40 mg tablet 40 mg PO DAILY #90 tabs 11/22/21 05/22/22 Rx acetaminophen 650 mg 1,300 mg PO [facility] 01/19/22 05/22/22 History tablet,extended release aspirin 81 mg tablet,delayed 81 mg PO DAILY 01/19/22 05/22/22 History release (Yolis Low Dose Aspirin) buspirone 5 mg tablet 5 mg PO BID 01/19/22 05/22/22 History calcium carbonate 600 mg-vitamin 1 tab PO BID 01/19/22 05/22/22 History D3 20 mcg (800 unit) chewable tablet (Caltrate 600 plus D) cyanocobalamin (vitamin B-12) 1,000 mcg PO DAILY 01/19/22 05/22/22 History 1,000 mcg tablet (Vitamin B-12) fluticasone furoate 200 1 ea inhalation DAILY 01/19/22 05/22/22 History mcg-vilanterol 25 mcg/dose inhalation powder (Breo Ellipta) omega 1-beh-bdc-fish oil 1,200 mg 1 cap PO BID 01/19/22 05/22/22 History (144 mg-216 mg) capsule (Fish Oil) lisinopril 40 mg tablet 40 mg PO DAILY #90 tabs 04/04/22 05/22/22 Rx L.acidoph-L.rhamn-B.bifidum-B.long 1 tab PO DAILY 05/22/22 05/22/22 History 12.9 mg (2 billion cell) DR michelle (Probiotic Acidophilus Biobbrenda) albuterol sulfate 2.5 mg/3 mL 2.5 mg inhalation DIRECTED PRN 05/22/22 05/22/22 History (0.083 %) solution for nebulization Shortness Of Breath Or Wheezing benzonatate 100 mg capsule 100 mg PO TID PRN Cough 05/22/22 05/22/22 History buprenorphine 20 mcg/hour weekly 1 patch transdermal Q7D 05/22/22 05/22/22 History transdermal patch magnesium oxide 400 mg PO Q OTHER DAY 05/22/22 05/22/22 History ondansetron HCl 4 mg tablet 4 mg PO Q6H PRN NAUSEA/VOMITING 05/22/22 05/22/22 History pregabalin 50 mg capsule (Lyrica) 50 mg PO BID 05/22/22 05/22/22 History Patient History Medical History Acute hyponatremia Acute kidney injury Anemia Anxiety Asthma STABLE Cyclothymic disorder MOOD DISORDER Depression Diabetes mellitus, type 2 NIDDM Dry eye syndrome Dyspepsia CHRONIC FELT D/T MEDICATION INTERACTIONS (POLYPHARMACY) Fibromyalgia GERD (gastroesophageal reflux disease) OCCASIONAL History of blood transfusion REMOTE POST-OP Hyperlipidemia Hypertension Hyponatremia Hypothyroidism Kidney stones Metabolic acidosis with increased anion gap and accumulation of organic acids Migraine 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 Osteoarthritis Peripheral neuropathy B/L UE/LE Sleep apnea BIPAP Spinal stenosis Ventral hernia Surgical History Fusion of spine LUMBAR X2 H/O foot surgery RIGHT HAMMERTOE AND BUNION REPAIR H/O: hysterectomy + ANTERIOR/POSTERIOR REPAIR History of bladder surgery SUSPENSION History of cataract surgery RIGHT/LEFT History of section History of cholecystectomy History of colonoscopy History of esophagogastroduodenoscopy (EGD) History of shoulder surgery RIGHT SHOULDER History of surgery perianal fistula History of tonsillectomy Adenoidectomy History of tooth extraction History of total knee replacement RIGHT/LEFT History of vaginal hysterectomy Family History Mother Family history of diabetes mellitus COPD (chronic obstructive pulmonary disease) Diabetes Hypertension Brother Family history of diabetes mellitus Diabetes Renal failure Sister Family history of diabetes mellitus Malignant melanoma Uncle Family hx of colon cancer Colorectal cancer Paternal Aunt Breast cancer Maternal Ovarian cancer Paternal Social History Smoking Status: Never smoker Second Hand Exposure: No; Hx Alcohol Use: No Hx Substance Use: No Preferred Language: Indian Communication Ability: Impaired Visual Impairment: Limited Hearing Ability: Normal Injury Prevention Coordinator Required: No Beliefs That Will Affect Care: None marital status: Current Living Situation: Spouse Feels Safe at Home: Yes Assistive Devices: Cane, Walker and Wheelchair Physical Exam Constitutional: WD/WN, vitals as above no distress Eyes: PERRL, conjunctivae normal, anicteric sclerae Neck: trachea midline, no thyromegaly Respiratory: normal respiratory effort, lungs clear to auscultation Cardiovascular: RRR, no murmur, no edema Gastrointestinal (Abdomen): soft, NT, ND, BS +, Skin: one incision is healed, other incision is still packing, no drainage, some redness and mild tenderness on right buttock area, Neurologic: patellar DTR's 2+ bilat, sensation intact Psychiatric: A+Ox3, euthymic affect Results & Data ([facility]) Vital Signs (Past 12 Hours) Vital Signs Temp Pulse Pulse Pulse Resp BP Pulse Ox 06/07/22 11:15 36.9 C 99 H 18 118/71 98 06/07/22 08:00 06/07/22 07:00 93 H 06/07/22 07:25 36.7 C 87 18 170/72 H 93 06/07/22 03:45 37 C 100 H 18 153/80 H 96 O2 Del Method 06/07/22 11:15 Room Air 06/07/22 08:00 Room Air 06/07/22 07:00 06/07/22 07:25 Room Air 06/07/22 03:45 Room Air Laboratory Results Abnormal lab results 06/06/22 06/06/22 06/07/22 Range/Units 16:29 20:08 07:24 RBC (3.93-5.22) M/uL Hgb (12.0-16.0) g/dl Hct (34.1-44.9) % MCHC (32.0-36.0) g/dL RDW Std Deviation (36.4-46.3) fL RDW Coeff of Zeynep (11.5-14.5) % Plt Count (130-400) K/uL Dixon # (Auto) (0.24-0.82) K/uL Immature Gran # (Auto) (0.00-0.02) K/uL Glucose (70-99(Fasting)) mg/dl POC Glucose 136 H 168 H 137 H (70-99) mg/dl Calcium (8.5-10.1) mg/dl Magnesium (1.7-2.4) mg/dl 06/07/22 06/07/22 06/07/22 Range/Units 08:21 08:21 11:14 RBC 3.61 L (3.93-5.22) M/uL Hgb 9.3 L (12.0-16.0) g/dl Hct 30.2 L (34.1-44.9) % MCHC 30.8 L (32.0-36.0) g/dL RDW Std Deviation 54.6 H (36.4-46.3) fL RDW Coeff of Zeynep 18.6 H (11.5-14.5) % Plt Count 433 H (130-400) K/uL Dixon # (Auto) 1.11 H (0.24-0.82) K/uL Immature Gran # (Auto) 0.17 H (0.00-0.02) K/uL Glucose 158 H (70-99(Fasting)) mg/dl POC Glucose 142 H (70-99) mg/dl Calcium 8.3 L (8.5-10.1) mg/dl Magnesium 1.6 L (1.7-2.4) mg/dl Diagnostic Findings CT OF THE ABDOMEN AND PELVIS WITHOUT CONTRAST CLINICAL HISTORY: Evaluate for right buttock abscess. COMPARISON STUDY: CT of the abdomen and pelvis May 22, 2022. TECHNIQUE: Axial images of the abdomen and pelvis were obtained without IV contrast. Images were reviewed in the axial, sagittal, and coronal planes. Automated exposure control was utilized for the study. A dose lowering technique was utilized adhering to the principles of ALARA. FINDINGS: Small left and trace right pleural effusions are noted. Scattered subpleural ground glass opacities within the lower lungs are noted. Evaluation of the abdomen and pelvis is suboptimal on this unenhanced examination. No pneumatosis, free air or portal venous gas is present. Unenhanced images of the liver, spleen, adrenal glands, kidneys and pancreas are unremarkable. There is no biliary ductal dilatation. Gallbladder is not visualized. There is no hydronephrosis. No evidence for a bowel obstruction. Moderate amount of stool within the colon is noted. Sigmoid diverticulosis is noted without evidence for acute diverticulitis. The appendix is normal. No intra-abdominal fluid collection is present. Postoperative findings within the spine are noted. Postoperative appearance is unchanged since CT of May 22, 2022. Note is again made of extensive inflammation within the right buttock extending into the right aspect of the perineum and right ischioanal and ischiorectal spaces. There is associated soft tissue gas. This gas is new since prior CT. A few tiny intramuscular fluid collections within the inferior right gluteus blake measure up to 1.2 cm. These are suboptimally assessed on this unenhanced examination. Mass effect from the inflammation has mildly decreased since CT of May 22, 2022. Body wall edema is present. No CT evidence for acute osteomye litis. Sanabria balloon and gas within the bladder are noted.
--- NOTE | 2022-06-07 15:28 | Discharge Summary ---
Date of Service June 07, 2022 Admission HPI Per Admitting Provider DATE OF ADMISSION: 05/22/2022. CHIEF COMPLAINT: Unresponsive episode, metabolic acidosis, hyponatremia. HISTORY OF PRESENT ILLNESS: This is a 76-year-old female with past medical history significant for type 2 diabetes, hyperlipidemia, hypothyroidism, chronic kidney disease stage III, asthma mild, persistent, history of sleep apnea, hypertension, history of multi-infarct dementia without behavioral disturbance, history of systolic murmur, GERD, obesity, vitamin B12 deficiency, fibromyalgia, back pain, late onset Alzheimer disease without behavioral disturbance, myelopathy, depression, cyclothymic disorder, agoraphobia, who lives at home with her , presents with an unresponsive episode. The patient was feeling weak. The patient is currently alert, awake, and oriented. Says she was weak and she was ambulating with a walker and when she went to bathroom, coming back, she was not able to get into her bed. Her tried to help her. She just laid on the floor. She says EMS was called and when the EMS arrived, she was unresponsive. She looked dry and she was given fluids. On the way in the ambulance, she woke up. By the time she came to the ER, she was alert and oriented. The patient says she was having constipation and she took mag citrate last night and she was having diarrhea, then she was also feeling a lot of nausea and not eating much since last 1 week. In the last 3 nights, she says, she took 2 tablets of trazodone trying to pass away, but , she states she just took extra 2 tablets, but when asked again she says she has dementia and she does not exactly remember how much she took. Currently in the ER, her systolic blood pressure is in the 80s and 90s. Her white count was 34,000. ABG, pH of 7.33, bicarbonate of 14. Sodium of 120, anion gap 16, creatinine 2.4 . Lactate was 7.2. Troponin I high sensitivity 26. Procalcitonin 14.9. Urinalysis unremarkable. Salicylate less than 3, acetaminophen less than 3, ethyl alcohol less than 10. Rapid COVID test negative. CT of abdomen and pelvis without contrast, no acute findings.EKG showed QTc of 547. Denies any chest pain, denies shortness of breath. Currently, denies any headache or blurred visions. Has runny nose, has some sore throat. No cough, no fevers as per the patient. Urine is dark in the ER. ALLERGIES: MICONAZOLE, MORPHINE, ERYTHROMYCIN BASE, BACLOFEN, KLONOPIN, CODEINE, DOXYCYCLINE, GABAPENTIN, MACROLIDE ANTIBIOTICS, PRIMIDONE. PAST MEDICAL HISTORY: As mentioned above. PAST SURGICAL HISTORY: Anal fistula surgery, bilateral sacroiliac joint arthrodesis, bilateral knee arthroplasty, , colonoscopies, decompression of lumbar spine, EGDs, EGD with biopsy, EGD with endoscopic ultrasound, bilateral knee arthroscopy, lumbar fusion surgery, right bunionectomy, cervical spine fusion surgery, tonsillectomy, bilateral cataract surgery, cholecystectomy, revision of right shoulder arthroplasty, vaginal hysterectomy. MEDICATIONS: The patient is on Tylenol Arthritis b.i.d., albuterol 2 puffs inhalation q.4 hours p.r.n., albuterol nebulization p.r.n., aspirin 81 mg p.o. daily, benzonatate 100 mg p.o. t.i.d. p.r.n., buprenorphine 20 mcg per hour patch weekly, Wellbutrin 100 mg p.o. b.i.d., buspirone 5 mg p.o. b.i.d., calcium carbonate 1 tablet p.o. b.i.d., celecoxib 200 mg p.o. a.m., vitamin D 1000 units p.o. a.m., vitamin B12 1000 mcg p.o. daily, cyclobenzaprine 5 mg p.o. q.6 hours p.r.n., Aricept 10 mg p.o. at bedtime, duloxetine 60 mg p.o. b.i.d., Nexium 40 mg p.o. a.m., Vytorin 10/20 mg 1 tablet p.o. at bedtime, famotidine 40 mg p.o. b.i.d., Breo Ellipta 1 inhalation daily, Flonase 2 sprays intranasally at bedtime, folic acid 0.8 mg p.o. a.m., Lasix 40 mg p.o. daily, probiotics 1 tablet p.o. daily, Lamictal 150 mg p.o. at bedtime, levothyroxine 100 mcg p.o. daily, lisinopril 40 mg p.o. daily, magnesium oxide 400 mg p.o. every other day, Namenda XR 14 mg p.o. q.a.m., metformin 1000 mg p.o. b.i.d., Singulair 10 mg p.o. at bedtime, multivitamin 1 tablet p.o. a.m., fish oil 1 capsule p.o. b.i.d., Zofran 4 mg p.o. q.6 hours p.r.n., Lyrica 50 mg p.o. b.i.d., trazodone 25 mg p.o. at bedtime, vitamin E 400 international units p.o. at bedtime. FAMILY HISTORY: Significant for mother has asthma, endometrial cancer, diabetes, COPD; father in a MVA at the age of 46; aunt has breast cancer; another aunt has ovarian cancer; uncle has colon cancer; brother has diabetes; daughter has IBS. SOCIAL HISTORY: . No smoking, no alcohol, no drug use. REVIEW OF SYSTEMS: As per HPI. Rest of the review of systems is negative. Admission Exam Per Admitting Provider GENERAL: The patient is obese, not in acute distress currently. VITAL SIGNS: Temperature 36.4, pulse 96, respiratory rate 20, blood pressure when she came in was like 78/57, currently 104/52, oxygen 91% on room air. HEENT: Pupils equal, round and reactive to light. Oral mucosa dry. NECK: No JVD. No neck masses. CARDIOVASCULAR: S1 and S2 heard. Regular rate and rhythm. No murmur, no gallop. RESPIRATORY SYSTEM: Normal AP diameter. No accessory muscle use. No wheezing, no crackles. ABDOMEN: Soft, bowel sounds present. Mild diffuse discomfort, no guarding, no rigidity, no distention. CENTRAL NERVOUS SYSTEM: Alert and oriented x3, speaking in low volume. No facial droop. Speech is okay, though in low volumes. Insight is okay. Obeys simple commands. Moves extremities. EXTREMITIES: No edema, no erythema. Principal Diagnosis Buttock abscess, right buttock necrotizing fasciitis Oral thrush Overdose of trazodone, resolved Sepsis Discharge Exam GENERAL: Alert and oriented x3. NAD, on RA. HEENT: No pallor, no icterus. Pupils equal, round and reactive to light. Oral mucosa moist. NECK: No JVD, no neck masses. HEART: S1 and S2 heard. Regular rate and rhythm. + murmur, no gallop. RESPIRATORY SYSTEM: Normal AP diameter. No accessory muscle use. No wheezing, no crackles. ABDOMEN: Soft, bowel sounds present, nontender, no distention. CENTRAL NERVOUS SYSTEM: No facial droop. Speech is clear. Obeys simple commands. Moves extremities. EXTREMITIES: No edema, no erythema seen. UC w/ yellow urine collection. Rt buttock w/ induration, packing and soakage noted. Discharge Data Allergies Allergy/AdvReac Type Severity Reaction Status Date / Time miconazole Allergy Intermediate SEVERE Verified 05/22/22 02:54 BURNING ITCHING morphine Allergy Intermediate ITCHING, Verified 05/22/22 02:54 ABD PAIN erythromycin base Allergy Unknown Unknown Verified 05/22/22 02:54 baclofen AdvReac Intermediate NAUSEA/VOMI Verified 05/22/22 02:54 TING clonazepam AdvReac Intermediate PSYCH Verified 05/22/22 02:54 COMPLICATIONS codeine AdvReac Intermediate DYSPEPSIA Verified 05/22/22 02:54 doxycycline AdvReac Intermediate GASTRITIS Verified 05/22/22 02:54 gabapentin AdvReac Intermediate FATIGUE Verified 05/22/22 02:54 Macrolide Antibiotics AdvReac Intermediate DYSPEPSIA Verified 05/22/22 02:54 (TOLERATED Z-PACK) primidone AdvReac Intermediate PSYCH Verified 05/22/22 02:54 COMPLICATIONS Consultations 05/22/22 08:25 Consult Repairer Hairspring Routine Consult Nephrology Routine 05/22/22 09:16 Consult Behavioral Health Liaison Routine 05/22/22 11:25 Consult Psychiatry Routine 05/24/22 08:18 Consult General Surgery Routine 05/24/22 15:59 Consult Infectious Diseases Routine 06/07/22 10:09 Consult General Surgery Routine Procedures Performed Operation Date: 05/24/22 10:45 Actual Procedures p Debridement Right Buttock Abscess(Right) - Sarah Amador MD Ordered Studies 05/22/22 03:46 CT abd pelvis wo con Urgent 06/06/22 15:45 CT Abd and Pelvis [CT abd pelvis wo con] Routine Hospital Course (1) Abrasion of buttock, right, infected: Plan Overdose of trazodone: Intentional overdose, Poison control was involved, psychiatry evaluated, antipsychotics have been started, no acute anxiety and no depression. Oral thrush: Likely secondary to acute illness, received Diflucan x3 days, on nystatin swish and spit. Reports improving symptoms. Able to take p.o. Diarrhea earlier in admission: C. difficile was negative, seems to have resolved. Sepsis and bacteremia: Likely secondary to buttock abscess, blood culture positive for staph aureus MRSA and Pseudomonas aeruginosa. ID evaluated, patient on Dapto plus cefepime plus metronidazole. Buttock abscess and possible right buttock necrotizing fasciitis: Status post I&D on 05/24 by surgery team, repeat CT scan of abdomen pelvis on 06/06 with worsening infection/abscess concerning for necrotizing fasciitis, surgery evaluated, recommended transfer to tertiary [place] for deep wound infection management, patient agreeable to transfer, patient has already been accepted at [facility], paperwork done and left with charge nurse. Continue with antibiotics per ID recommendation. N.p.o. for possible surgical intervention at tertiary center. Echo showed no evidence of vegetation. Hyponatremia: Resolved Hypokalemia: Resolved Lactic acidosis: Resolved Leukocytosis: Resolved Other chronic medical conditions: Continue with/resume home meds as and when able. DVT ppx: on Heparin subq Full Code Disposition: Patient accepted at [facility] for management of necrotizing fasciitis x right buttock, awaiting transport. Total Time Total Time Spent Total Time Spent (In Minutes): 45 Discharge Plan Discharge Items Patient Disposition: Transfer Acute Care Hospital Reason For Visit: UNRESPONSIVE EPISODE Discharge Diagnosis: Buttock abscess, right buttock necrotizing fasciitis Oral thrush Overdose of trazodone, resolved Sepsis Activity: As commented below Activity Comment: As per tertiary care recommendation. Non-emergency contact: Primary Care Provider Call non-emergency contact if: you have any medication questions Follow-up/Referrals: [facility] [Provider Group] - 07/03/22 9:20 am (TELEHEALTH APPOINTMENT ) Papo Keyes MD [Primary Care Provider] - Diet: Regular and Other - See Diet Comment Diet Comment: N.p.o. diet until evaluated at tertiary center Addtl Attending Provider Instructions: Patient's home medication will be continued as it was prior in discharge med rec. Patient's inpatient medication will be copied/pasted over herer for the sake of comparison. Current Inpatient Medications Acetaminophen (Acetaminophen 325 Mg Tab) 650 mg PO Q4H PRN PRN Reason: Pain or Fever Stop: 06/23/22 01:06 Last Admin: 06/07/22 13:19 Dose: 650 mg Albuterol (Albuterol Hfa 8 Gm Inhaler) 2 puffs INH Q4H PRN PRN Reason: SHORT OF BREATH Stop: 06/21/22 08:46 Albuterol (Albuterol 0.083% Nebu Soln 3 Ml Vial) 2.5 mg INH ONCE PRN; Protocol PRN Reason: SOB/WHEEZING Stop: 06/21/22 08:24 Buspirone HCl (Buspirone 5 Mg Tab) 5 mg PO TID PRN PRN Reason: Anxiety Stop: 07/01/22 15:02 Last Admin: 06/07/22 11:20 Dose: 5 mg Dextrose (Dextrose 50% 50 Ml Syringe) 25 - 50 ml IV UD PRN; Protocol PRN Reason: Hypoglycemia Protocol Stop: 06/21/22 21:49 Last Admin: 05/22/22 21:58 Dose: 25 ml Diphenoxylate HCl/Atropine (Diphenoxylate/Atropine 2.5/0.025mg Tab) 1 tab PO TID SARAI Stop: 07/02/22 20:59 Last Admin: 06/07/22 08:09 Dose: 1 tab Donepezil HCl (Donepezil Hcl 10 Mg Tab) 10 mg PO HS SARAI Stop: 06/21/22 20:59 Last Admin: 06/06/22 20:17 Dose: 10 mg Duloxetine HCl (Duloxetine Hcl 60 Mg Cap) 60 mg PO QAM [facility]AI Stop: 07/04/22 08:59 Last Admin: 06/07/22 08:08 Dose: 60 mg Famotidine (Famotidine 40 Mg Tablet) 40 mg PO BID SARAI Stop: 06/21/22 08:59 Last Admin: 06/07/22 08:08 Dose: 40 mg Fluticasone Propionate (Fluticasone Propionate Na Spr 16 Gm Btl) 2 sprays NA HS SARAI Stop: 06/21/22 20:59 Last Admin: 06/06/22 20:15 Dose: 2 sprays Fluticasone/Vilanterol (Fluticasone/Vilanterol 200/25mcg 14 Puffs/Inhaler) 1 puffs INH DAILY SARAI Stop: 06/21/22 08:59 Last Admin: 06/07/22 08:10 Dose: 1 puffs Folic Acid (Folic Acid 400 Mcg Tab) 800 mcg PO QAM SARAI Stop: 06/21/22 08:59 Last Admin: 06/07/22 08:08 Dose: 800 mcg Glucagon (Glucagon For Inj 1 Mg Vial) 1 mg SQ UD PRN; Protocol PRN Reason: Hypoglycemia Protocol Stop: 06/21/22 21:49 Glucose (Glucose 40% Gel 15 Gm Tube) 15 - 30 gm PO UD PRN; Protocol PRN Reason: Hypoglycemia Protocol Stop: 06/21/22 21:49 Glucose (Glucose 10 Tab/Tube) 4 - 8 tab PO UD PRN; Protocol PRN Reason: Hypoglycemia Treatment Stop: 06/21/22 21:49 Heparin Sodium (Porcine) (Heparin Sod 5,000 Unit/0.5 Ml Vial) 5,000 units SQ Q12 SARAI Stop: 06/22/22 20:59 Last Admin: 06/07/22 08:11 Dose: 5,000 units Cefepime HCl 2,000 mg/ Syringe 20 mls @ 5 mls/min IV Q8H [facility]; Protocol Stop: 06/09/22 09:59 Last Admin: 06/07/22 11:16 Dose: 5 mls/min Daptomycin 550 mg/ Syringe 11 mls @ 5.5 mls/min IV DAILY SARAI; Protocol Stop: 06/21/22 08:59 Last Admin: 06/07/22 08:28 Dose: 5.5 mls/min Magnesium Sulfate/Dextrose (Magnesium Sulfate / D5w) 1 gm in 100 mls @ 50 mls/hr IV Q2H [facility]AI Stop: 06/07/22 19:29 Insulin Aspart (Insulin Aspart Per Unit) 0 units SC ACHS [facility]AI Stop: 06/21/22 08:24 Last Admin: 06/07/22 11:49 Dose: 4 units Insulin Glargine (Lantus Per Unit Charge) 10 units SQ BID [facility]AI Stop: 07/06/22 08:59 Last Admin: 06/07/22 08:23 Dose: 10 units Lamotrigine (Lamotrigine 100 Mg Tab) 100 mg PO HS [facility] Stop: 07/03/22 20:59 Last Admin: 06/06/22 20:17 Dose: 100 mg Levothyroxine Sodium (Levothyroxine Sodium 100 Mcg Tablet) 100 mcg PO DAILYBB [facility] Stop: 06/21/22 08:59 Last Admin: 06/07/22 05:36 Dose: 100 mcg Loperamide HCl (Loperamide Hcl 2 Mg Cap) 2 mg PO Q6H PRN PRN Reason: Diarrhea Stop: 06/29/22 20:07 Last Admin: 06/06/22 08:39 Dose: 2 mg Memantine (Memantine Hcl 10 Mg Tab) 10 mg PO BID [facility] Stop: 06/22/22 08:59 Last Admin: 06/07/22 08:08 Dose: 10 mg Metronidazole (Metronidazole 500 Mg Tab) 500 mg PO TID SARAI Stop: 06/09/22 13:59 Last Admin: 06/07/22 13:20 Dose: 500 mg Miscellaneous (Carbohydrates For Hypoglycemia ) 15 - 30 gm PO UD PRN PRN Reason: Hypoglycemia Protocol Stop: 06/21/22 21:49 Montelukast Sodium (Montelukast Sodium 10 Mg Tablet) 10 mg PO HS [facility] Stop: 06/21/22 20:59 Last Admin: 06/06/22 20:16 Dose: 10 mg Multi-Ingredient Mouthwash/Gargle (First - Mouthwash Blm 119 Ml) 5 ml PO Q8H [facility]AI Stop: 06/26/22 07:59 Last Admin: 06/07/22 08:09 Dose: 5 ml Nystatin (Nystatin Susp 500,000 U/5 Ml Udc) 5 ml PO QID [facility]AI Stop: 06/17/22 13:59 Oxycodone HCl (Oxycodone Hcl Soln 5 Mg/5 Ml Udc) 5 mg PO Q4H PRN PRN Reason: Pain Stop: 06/15/22 13:06 Last Admin: 06/07/22 08:06 Dose: 5 mg Pantoprazole Sodium (Pantoprazole 40 Mg Tab) 40 mg PO QAM [facility] Stop: 06/22/22 08:59 Last Admin: 06/07/22 08:08 Dose: 40 mg Phenol (Chloraseptic 1.4% Soln 180 Ml Btl) 2 sprays MT Q6H PRN PRN Reason: Sore Throat Stop: 06/29/22 20:07 Potassium Chloride (Potassium Chloride Pwd 20 Meq Pack) 20 meq PO BID [facility] Stop: 06/29/22 20:59 Last Admin: 06/07/22 08:13 Dose: Not Given Sodium Chloride (Sodium Chloride 0.65% Na Soln 45 Ml ([place])) 1 sprays NA Q6H PRN PRN Reason: Congestion Stop: 06/26/22 16:18 Last Admin: 05/29/22 04:03 Dose: 1 sprays Pending Studies at Discharge: No Stand-Alone Forms: My [facility] Skilled Items Patient informed of condition?: Yes DNR: No Discharge Level of Care: Other Communicable Disease: No Discharge Prognosis: Deteriorating Lines: Peripheral IV Urinary Catheter: Yes Medications and DC Order Prescriptions: Continued furosemide 40 mg tablet 40 mg PO DAILY Qty: 90 3RF lisinopril 40 mg tablet 40 mg PO DAILY Qty: 90 3RF famotidine [Pepcid] 40 mg tablet 40 mg PO BID bupropion HCl [Wellbutrin SR] 100 mg Tablet Sustained-Release 12 Hr 100 mg PO BID celecoxib [Celebrex] 200 mg Capsule 200 mg PO QAM lamotrigine [Lamictal] 150 mg Tablet 150 mg PO HS donepezil [Aricept] 10 mg Tablet 10 mg PO HS levothyroxine 100 mcg Tablet 100 mcg PO QAM metformin 1,000 mg Tablet 1,000 mg PO BID esomeprazole magnesium [Nexium] 40 mg Capsule,Delayed Release(Dr/Ec) 40 mg PO QAM montelukast [Singulair] 10 mg Tablet 10 mg PO HS fluticasone propionate [Flonase Allergy Relief] 50 mcg/actuation [place],Suspension 2 spray INTRANASAL HS vitamin E 400 unit Capsule 400 unit PO HS Multivitamin 50 Plus Tablet 1 tab PO QAM cyclobenzaprine 5 mg Tablet 5 mg PO Q6H PRN (Reason: Pain) ezetimibe-simvastatin [Vytorin 10-20] 10-20 mg Tablet 1 tab PO HS folic acid 0.8 mg Capsule 0.8 mg PO QAM cholecalciferol (vitamin D3) [Vitamin D3] 1,000 unit Tablet 1,000 unit PO QAM memantine [Namenda XR] 14 mg Capsule,Sprinkle,Er 24hr 14 mg PO QAM albuterol sulfate 90 mcg/actuation Aerosol Powdr Breath Activated 2 inh INHALATION Q4H PRN (Reason: SHORT OF BREATH) trazodone 50 mg tablet 25 mg PO HS duloxetine [Cymbalta] 60 mg capsule,delayed release(DR/EC) 60 mg PO BID aspirin [Yolis Low Dose Aspirin] 81 mg Tablet,Delayed Release (Dr/Ec) 81 mg PO DAILY buspirone 5 mg tablet 5 mg PO BID Rx Instructions: MAY TAKE ADDITIONAL 5 MG IF NEEDED FOR ANXIETY omega [id number]-fish oil [Fish Oil] 1,200 (144-216) mg Capsule 1 cap PO BID acetaminophen [Tylenol Arthritis] 650 mg Tablet Extended Release 1,300 mg PO [facility] fluticasone furoate-vilanterol [Breo Ellipta] 200-25 mcg/dose blister with device 1 ea INHALATION DAILY cyanocobalamin (vitamin B-12) [Vitamin B-12] 1,000 mcg Tablet 1,000 mcg PO DAILY Caltrate 600 plus D 600 mg-20 mcg (800 unit) Tablet,Chewable 1 tab PO BID albuterol sulfate [Proventil] 2.5 mg /3 mL (0.083 %) Solution For Nebulization 2.5 mg INHALATION DIRECTED PRN (Reason: Shortness Of Breath Or Wheezing) ondansetron HCl [Zofran] 4 mg Tablet 4 mg PO Q6H PRN (Reason: NAUSEA/VOMITING) benzonatate [Tessalon Perles] 100 mg Capsule 100 mg PO TID PRN (Reason: Cough) pregabalin [Lyrica] 50 mg Capsule 50 mg PO BID buprenorphine 20 mcg/hour Patch Weekly 1 patch TRANSDERMAL Q7D Probiotic Acidophilus Biobeads 12.9 mg (2 billion cell) Tablet,Delayed Release (Dr/Ec) 1 tab PO DAILY magnesium oxide 400 mg magnesium capsule 400 mg PO Q OTHER DAY Rx Instructions: 400 mg PO every other day; Discharge Orders: Discharge Order (Routine); Ordered 06/07/22 Ordered By: Josh Booker/Other Patient Handouts: Managing Type 2 Diabetes Admission Data Admit Date/Time: 05/22/22 07:16 Attending Provider: Josh Dolan Admit Provider: Nick Jean Primary Care Provider: Papo Keyes Other Providers: Duncan Rosales ; Hu Rodriguez ; Evelia Pulido ; Alexandria Rai ; Jovita Tripp ; Isidra Marie ; Sarah Amador ; Fausto Dahl ; Jason Phillips ; Luke Vasquez I. ; Sukhwinder De Souza II ; Stephanie Christie ; Dm Hart ; Yogesh Avalos ; Jaja Holder ; [facility] ; [facility] ; [place],[facility] ; Sen Maradiaga
[2022-06-07] MEDS: NYSTATIN SUSP 500,000 U/5 ML UDC PO SCH ×2 (15:32→18:08)
[2022-06-07] MEDS: MAGNESIUM SULFATE / D5W 1 GM/100 ML BAG IV SCH ×2 (15:33→17:35)
== END 2022-06-07 19:15 | disposition short-term general hospital (02) | DRG 917 ==
LOC: ED 02:38 → 1E 07:16 → SUATTDRO 07:16 → 1E 07:53 → 2S 05-27 14:22

== ENCOUNTER 2022-06-16 10:08 | Inpatient (IN) ==
--- NOTE | 2022-06-18 10:11 | History & Physical Report ---
Date of Service June 18, 2022 Assessment & Plan (1) Necrotizing fasciitis: Plan: [place] the [facility] with them abrasion and abscess of the right buttock and seen by surgery service while in [facility] Noted to have sepsis with bacteremia and was treated appropriately with infectious disease help from [place] Has had repeat CT scan on 06 June and noted to have necrotizing fasciitis and was transferred to [place] for surgical intervention Has had I & D in [place] with improvement of her necrotizing fasciitis Has been on oral antibiotic and will continue accordingly Complains today of pain but no fever and or chills and no increase in white count Will ask wound care consult (2) Abscess of buttock, right: Plan: As above (3) Overdose of trazodone: Plan: Initial admission to [facility] on 05/22/2022 with trazodone overdose and suicidal ideation Psychiatric evaluation was done and the patient was cleared to continue antidepressant as prescribed No more suicidal ideation We will continue current medications for depression and anxiety (4) Depression: Plan: As above (5) Diabetes mellitus, type II: Plan: Continue with current medications We will hold up any metformin SSI (6) Hypertension: Plan: Blood pressure is noted to be elevated at 167/89 We will continue with current medications to control blood pressure (7) Dyslipidemia: Plan: Continue statin (8) Hypothyroidism: Plan: Continue supplement (9) Sleep apnea: Plan: Continue to use CPAP at nighttime Plan DVT prophylaxis Subcu Lovenox CODE STATUS Full Admission and Anticipated Discharge Date Admission Date: June 18, 2022 History of Present Illness Chief Complaint: Direct admission from [facility] [place] for continuation of care Primary Care Provider: Papo Keyes MD She is a 76-year-old female with significant past medical history of type 2 diabetes, hypertension, hyperlipidemia, asthma, hypothyroidism, sleep apnea, vascular dementia, anxiety depression and necrotizing fasciitis involving the right buttock was transferred to [place] on of last month for surgical intervention for the necrotizing fasciitis of right buttock. She was admitted on 05/22/2022 with overdose of trazodone and suicidal ideation and noted to have sepsis secondary to staph aureus and Pseudomonas bacteremia due to buttock abscess. She has had psychiatric evaluation in the hospital and also surgery evaluation and ID consultation and was on appropriate antibiotic as per the recommendation. She had a CAT scan of the abdomen pelvis that was done on of last month which showed necrotizing fasciitis and the surgical team advised the patient should be transferred to tertiary care center for continuation of care. She was transferred on 07 June and appropriate IND was done subsequently in [place] and the patient has been on oral antibiotics and has been stable to be transferred back to [facility] for continuation of care and placement. She complains today of pain at the right buttock incision area but denies any other symptoms. Denies any fever and or chills, any nausea and or vomiting, any chest pain or palpitation, any shortness of breath, any numbness and or tingling involving the extremities. She has been in bed almost and will initiate physical therapy. Her medications are reviewed and appropriately restarted. PT OT evaluation and sample case porter for possible placement. Allergies Allergy/AdvReac Type Severity Reaction Status Date / Time miconazole Allergy Intermediate SEVERE Verified 05/22/22 02:54 BURNING ITCHING morphine Allergy Intermediate ITCHING, Verified 05/22/22 02:54 ABD PAIN erythromycin base Allergy Unknown Unknown Verified 05/22/22 02:54 baclofen AdvReac Intermediate NAUSEA/VOMI Verified 05/22/22 02:54 TING clonazepam AdvReac Intermediate PSYCH Verified 05/22/22 02:54 COMPLICATIONS codeine AdvReac Intermediate DYSPEPSIA Verified 05/22/22 02:54 doxycycline AdvReac Intermediate GASTRITIS Verified 05/22/22 02:54 gabapentin AdvReac Intermediate FATIGUE Verified 05/22/22 02:54 Macrolide Antibiotics AdvReac Intermediate DYSPEPSIA Verified 05/22/22 02:54 (TOLERATED Z-PACK) primidone AdvReac Intermediate PSYCH Verified 05/22/22 02:54 COMPLICATIONS Home Medications Medication Instructions Recorded Confirmed Type albuterol sulfate 90 mcg/actuation 2 inh inhalation Q4H PRN SHORT OF 02/13/19 06/18/22 History breath activated powder inhaler BREATH or wheezing bupropion HCl 100 mg tablet,12 hr 100 mg PO BID 02/13/19 06/18/22 History sustained-release (Wellbutrin SR) celecoxib 200 mg capsule (Celebrex) 200 mg PO QAM pain 02/13/19 06/18/22 History cholecalciferol (vitamin D3) 25 1,000 unit PO QAM 02/13/19 06/18/22 History mcg (1,000 unit) tablet (Vitamin D3) cyclobenzaprine 5 mg tablet 5 mg PO TID PRN Pain 02/13/19 06/18/22 History donepezil 10 mg tablet (Aricept) 10 mg PO DAILY 02/13/19 06/18/22 History esomeprazole magnesium 40 mg 40 mg PO DAILYBB 02/13/19 06/18/22 History capsule,delayed release (Nexium) ezetimibe 10 mg-simvastatin 20 mg 1 tab PO DAILY 02/13/19 06/18/22 History tablet (Vytorin) fluticasone propionate 50 2 spray intranasal DAILY 02/13/19 06/18/22 History mcg/actuation nasal spray,suspension (Flonase Allergy Relief) folic acid 0.8 mg capsule 0.8 mg PO QAM 02/13/19 06/18/22 History lamotrigine 150 mg tablet 150 mg PO QPM 02/13/19 06/18/22 History (Lamictal) levothyroxine 100 mcg tablet 100 mcg PO DAILYBB 02/13/19 06/18/22 History memantine 14 mg capsule 14 mg PO QAM 02/13/19 06/18/22 History sprinkle,extended release 24hr (Namenda XR) metformin 1,000 mg tablet 1,000 mg PO BID 02/13/19 06/18/22 History montelukast 10 mg tablet 10 mg PO HS 02/13/19 06/18/22 History (Singulair) lkenzdmblitp-ochfqpit-icbttp 1 tab PO QAM 02/13/19 06/18/22 History tablet (Multivitamin 50 Plus tablet) vitamin E 268 mg (400 unit) capsule 400 unit PO HS 02/13/19 06/18/22 History trazodone 50 mg tablet 25 mg PO HS 11/13/19 06/18/22 History famotidine 40 mg tablet (Pepcid) 40 mg PO BID 04/12/20 06/18/22 History duloxetine 60 mg capsule,delayed 60 mg PO DAILY 05/19/21 06/18/22 History release (Cymbalta) furosemide 40 mg tablet 40 mg PO DAILY #90 tabs 11/22/21 06/18/22 Rx acetaminophen 650 mg 1,300 mg PO AMHS 01/19/22 05/22/22 History tablet,extended release aspirin 81 mg tablet,delayed 81 mg PO DAILY 01/19/22 06/18/22 History release (Yolis Low Dose Aspirin) buspirone 5 mg tablet 5 mg PO BID 01/19/22 06/18/22 History calcium carbonate 600 mg-vitamin 1 tab PO BID 01/19/22 06/18/22 History D3 20 mcg (800 unit) chewable tablet (Caltrate 600 plus D) cyanocobalamin (vitamin B-12) 1,000 mcg PO DAILY 01/19/22 06/18/22 History 1,000 mcg tablet (Vitamin B-12) lisinopril 40 mg tablet 40 mg PO DAILY #90 tabs 04/04/22 06/18/22 Rx L.acidoph-L.rhamn-B.bifidum-B.long 1 tab PO DAILY 05/22/22 06/18/22 History 12.9 mg (2 billion cell) tablet, DR (Probiotic Acidophilus [employer]) albuterol sulfate 2.5 mg/3 mL 2.5 mg inhalation DIRECTED PRN 05/22/22 06/18/22 History (0.083 %) solution for nebulization Shortness Of Breath Or Wheezing benzonatate 100 mg capsule 100 mg PO TID PRN Cough 05/22/22 06/18/22 History magnesium oxide 400 mg PO Q OTHER DAY 05/22/22 06/18/22 History ondansetron HCl 4 mg tablet 4 mg PO Q6H PRN NAUSEA/VOMITING 05/22/22 06/18/22 History pregabalin 50 mg capsule (Lyrica) 50 mg PO BID 05/22/22 06/18/22 History acetaminophen 500 mg tablet 500 mg PO Q4H PRN Pain 06/18/22 06/18/22 History cadexomer iodine 0.9 % topical gel 1 ea topical DAILY apply to toe 06/18/22 06/18/22 History ciprofloxacin HCl 500 mg tablet 500 mg PO BID 06/18/22 06/18/22 History (Cipro) clindamycin HCl 300 mg capsule 300 mg PO TID 06/18/22 06/18/22 History fluticasone furoate 200 1 inh inhalation DAILY 06/18/22 06/18/22 History mcg-vilanterol 25 mcg/dose inhalation powder (Breo Ellipta) omega-3 fatty acids 1,000 mg PO DAILY 06/18/22 06/18/22 History oxycodone 10 mg tablet 10 mg PO Q4H PRN severe incisional 06/18/22 06/18/22 History pain Past Med/Surg History Medical History Acute hyponatremia Acute kidney injury Anemia Anxiety Asthma STABLE Cyclothymic disorder MOOD DISORDER Depression Diabetes mellitus, type 2 NIDDM Dry eye syndrome Dyspepsia CHRONIC FELT D/T MEDICATION INTERACTIONS (POLYPHARMACY) Fibromyalgia GERD (gastroesophageal reflux disease) OCCASIONAL History of blood transfusion REMOTE POST-OP Hyperlipidemia Hypertension Hyponatremia Hypothyroidism Kidney stones Metabolic acidosis with increased anion gap and accumulation of organic acids Migraine 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 Osteoarthritis Peripheral neuropathy B/L UE/LE Sleep apnea BIPAP Spinal stenosis Ventral hernia Surgical History Fusion of spine LUMBAR X2 H/O foot surgery RIGHT HAMMERTOE AND BUNION REPAIR H/O: hysterectomy + ANTERIOR/POSTERIOR REPAIR History of bladder surgery SUSPENSION History of cataract surgery RIGHT/LEFT History of section History of cholecystectomy History of colonoscopy History of esophagogastroduodenoscopy (EGD) History of shoulder surgery RIGHT SHOULDER History of surgery perianal fistula History of tonsillectomy Adenoidectomy History of tooth extraction History of total knee replacement RIGHT/LEFT History of vaginal hysterectomy Family History Mother Family history of diabetes mellitus COPD (chronic obstructive pulmonary disease) Diabetes Hypertension Brother Family history of diabetes mellitus Diabetes Renal failure Sister Family history of diabetes mellitus Malignant melanoma Uncle Family hx of colon cancer Colorectal cancer Paternal Aunt Breast cancer Maternal Ovarian cancer Paternal Social History Smoking Status: Never smoker Second Hand Exposure: No; Do You Dip or Chew Tobacco: No; Hx Alcohol Use: No Hx Substance Use: No Preferred Language: Indonesian Communication Ability: Effective Visual Impairment: Limited Hearing Ability: Normal Bonded Structures Repairer Required: No Beliefs That Will Affect Care: None marital status: Current Living Situation: Spouse Other Information That Helps Us Care for You: No Feels Safe at Home: Yes Safety Concerns: Feels Safe At This Time Assistive Devices: Glasses and Hearing Aid - Bilateral Review of Systems Review of Systems: All systems reviewed and are unremarkable except as noted below Physical Exam Physical Exam: Lying in bed comfortably Constitutional: well developed, well nourished, + ill appearing and + obese Eyes: PERRL, conjunctivae normal, anicteric sclerae ENMT: external ear and nose normal, oropharynx normal Neck: trachea midline, no thyromegaly Respiratory: no respiratory distress Auscultation: lungs clear to auscultation bilaterally; no crackles Cardiovascular: Rate/Rhythm: regular rate, regular rhythm and + tachycardic Heart Sounds: normal S1; no murmur Extremities: no edema Gastrointestinal (Abdomen): Inspection/Auscultation: + abdomen distended and normal bowel sounds Percussion/Palpation: abdomen soft; abdomen nontender Musculoskeletal: No acute arthritis in any joint. Right buttock area is bandaged Neurologic: normal touch/pain/proprioception and moves all extremities; no focal motor deficits and not confused Psychiatric: A+Ox3, euthymic affect Lymphatic: no cervical or axillary lymphadenopathy Results & Data Results & Data ([facility]) Vital Signs (Past 12 Hours) Vital Signs Temp Pulse Resp BP Pulse Ox O2 Del Method 06/18/22 09:00 36.8 C 100 H 17 167/89 H 95 Room Air Code Status & VTE Plan VTE Prophylaxis Plan VTE Prophylaxis will be ordered: Yes
[2022-06-18] MEDS: Patient's HEIGHT &/or WEIGHT Needed SCH ×3 (11:50→11:51)
[2022-06-18] MEDS ORDERED: CYCLOBENZAPRINE HCL 5 MG TAB PO PRN (12:13)
[2022-06-18] MEDS ORDERED: ALBUTEROL 0.083% NEBU SOLN 3 ML VIAL INH PRN (12:13)
[2022-06-18] MEDS ORDERED: BENZONATATE 100 MG CAPSULE PO PRN (12:13)
[2022-06-18] MEDS: ENOXAPARIN INJ 40 MG/0.4 ML SYR SQ SCH (12:17)
[2022-06-18] MEDS: oxyCODONE HCL IR 5 MG TAB (IMMEDIATE RELEASE) PO PRN ×2 (12:20→18:25)
[2022-06-18] MEDS ORDERED: ONDANSETRON 4 MG OD TAB PO PRN (12:20)
[2022-06-18] MEDS: INSULIN ASPART PER UNIT SC SCH ×3 (12:54→21:26)
[2022-06-18] MEDS: CIPROFLOXACIN 500 MG TAB PO SCH ×2 (13:00→21:16)
[2022-06-18] MEDS: CLINDAMYCIN HCL 150 MG CAP PO SCH ×2 (13:00→21:16)
[2022-06-18] MEDS ORDERED: ALBUTEROL HFA 8 GM INHALER INH PRN (13:36)
[2022-06-18] MEDS: lisinopril 40 MG TAB PO SCH (14:49)
[2022-06-18] MEDS: ADVANCED PROBIOTIC 1250 MG CAPSULE PO SCH (14:49)
[2022-06-18] MEDS: ASPIRIN 81 MG ECTAB PO SCH (14:50)
[2022-06-18] MEDS: FLUTICASONE/VILANTEROL 200/25MCG 14 PUFFS/INHALER INH SCH (14:50)
[2022-06-18] MEDS: PREGABALIN 50 MG CAP PO SCH ×2 (14:55→21:20)
[2022-06-18] MEDS: busPIRone 5 MG TAB PO SCH (21:16)
[2022-06-18] MEDS: TOCOPHERYL, DL-ALPHA 400 UNITS 180 MG CAP PO SCH (21:16)
[2022-06-18] MEDS: buPROPion SR 100 MG TABCR PO SCH (21:16)
[2022-06-18] MEDS: CALCIUM 600MG + VIT D 400 IU TAB PO SCH (21:17)
[2022-06-18] MEDS: lamoTRIgine 100 MG TAB PO SCH (21:17)
[2022-06-18] MEDS: FAMOTIDINE 40 MG TABLET PO SCH (21:17)
[2022-06-18] MEDS: MONTELUKAST SODIUM 10 MG TABLET PO SCH (21:17)
[2022-06-18] MEDS: MEMANTINE HCL 5 MG TAB PO SCH (21:17)
[2022-06-18] MEDS: traZODone HCL 50 MG TAB PO SCH (21:20)
[2022-06-19] MEDS ORDERED: VANCOMYCIN CONSULT ACTIVE PRN (03:26)
[2022-06-19] MEDS: oxyCODONE HCL IR 5 MG TAB (IMMEDIATE RELEASE) PO PRN ×2 (03:35→14:51)
[2022-06-19] MEDS: ACETAMINOPHEN 500 MG TAB PO PRN ×2 (03:36→10:45)
[2022-06-19 03:58] LABS: Basophils # (auto) 0.01 K/uL (0-0.2); Basophils % (auto) 0.2 %; Eosinophils # (auto) 0.13 K/uL (0-0.50); Eosinophils % (auto) 2.2 %; Hematocrit (blood only) 25.7 % (34.1-44.9); Hemoglobin 7.9 g/dl (12.0-16.0); Immature Granulocytes # (auto) 0.13 K/uL (0.00-0.02); Immature Granulocytes % (auto) 2.2 %; Lymphocytes # (auto) 0.52 K/uL (1.2-3.4); Mean Corpuscular Hemoglobin 24.8 pg (25.0-34.0); Mean Corpuscular Hgb Conc 30.7 g/dL (32.0-36.0); Mean Corpuscular Volume 80.6 fL (80.0-100.0); Mean Platelet Volume 9.8 fL (9.4-12.3); Monocytes # (auto) 0.53 K/uL (0.24-0.82); Monocytes % (auto) 9.1 %; Neutrophils # (auto) 4.48 K/uL (1.4-6.5); Neutrophils % (auto) 77.3 %; Platelet Count 221 K/uL (130-400); RDW Standard Deviation 52.7 fL (36.4-46.3); Red Blood Count 3.19 M/uL (3.93-5.22)
[2022-06-19 04:22] LABS: Polychromasia 1+; Toxic Vacuolation 1+
[2022-06-19 04:28] LABS: Albumin Globulin Ratio 1.3 (0.9-2); Albumin Level 3.4 gm/dl (3.4-5.0); BUN Creatinine Ratio 14.3 (10-20); Bilirubin,Total 0.5 mg/dl (0.2-1.0); Calcium 8.4 mg/dl (8.5-10.1); Creatinine Clr Calc Pharmacy 69.1 ml/min; Est GFR (African American) 88.2 ml/min; Est GFR (Non-African American) 76.1 ml/min; Globulin 2.7 gm/dl (2.5-4.0); Potassium 3.6 mmol/L (3.5-5.1); Total Protein 6.1 gm/dl (6.0-8.3)
[2022-06-19] MEDS ORDERED: PIPERACILLIN/TAZOBACTAM 4.5 GM in DEXTROSE 5% 100 ML IV ONE (04:30)
[2022-06-19] MEDS ORDERED: VANCOMYCIN HCL 1,750 MG in SODIUM CHLORIDE 0.9% 500 ML IV ONE (04:30)
[2022-06-19] MEDS ORDERED: LACTATED RINGER'S 500 ML IV ONE (04:36)
[2022-06-19] MEDS: LEVOTHYROXINE SODIUM 100 MCG TABLET PO SCH (06:42)
[2022-06-19] MEDS: PANTOprazole 40 MG TAB PO SCH (06:42)
--- NOTE | 2022-06-19 07:28 | XRay Report ---
XR chest 1V portable CLINICAL HISTORY: fever COMPARISON STUDY: Chest CT May 14, 2022. Chest radiograph May 22, 2020 2P FINDINGS: Right shoulder arthroplasty and multilevel postoperative findings within the spine are inci dentally noted. No consolidation is identified. There is no evidence for pulmonary edema. Cardiomedia stinal silhouette is stable. IMPRESSION: No acute cardiopulmonary findings. ACT 112: Negative or not required by law. Electronically signed by: Madhav Schumacher M.D. 06/19/2022 7:27 AM
[2022-06-19] MEDS: busPIRone 5 MG TAB PO SCH ×2 (07:29→20:47)
[2022-06-19] MEDS: CALCIUM 600MG + VIT D 400 IU TAB PO SCH ×2 (07:30→20:47)
[2022-06-19] MEDS: CIPROFLOXACIN 500 MG TAB PO SCH (07:30)
[2022-06-19] MEDS: CLINDAMYCIN HCL 150 MG CAP PO SCH (07:30)
[2022-06-19] MEDS: FAMOTIDINE 40 MG TABLET PO SCH ×2 (07:30→20:47)
[2022-06-19] MEDS: buPROPion SR 100 MG TABCR PO SCH ×2 (07:30→20:47)
[2022-06-19] MEDS: MEMANTINE HCL 5 MG TAB PO SCH ×2 (07:31→20:48)
[2022-06-19] MEDS: lisinopril 40 MG TAB PO SCH (07:32)
[2022-06-19] MEDS: FOLIC ACID 400 MCG TAB PO SCH (07:32)
[2022-06-19] MEDS: ADVANCED PROBIOTIC 1250 MG CAPSULE PO SCH (07:33)
[2022-06-19] MEDS: OMEGA-3 (PURIFIED FISH OIL) 1 GM CAP PO SCH (07:33)
[2022-06-19] MEDS: DULoxetine HCL 60 MG CAP PO SCH (07:33)
[2022-06-19] MEDS: EZETIMIBE/SIMVASTATIN 10/20 TAB PO SCH (07:33)
[2022-06-19] MEDS: DONEPEZIL HCL 10 MG TAB PO SCH (07:33)
[2022-06-19] MEDS: ASPIRIN 81 MG ECTAB PO SCH (07:33)
[2022-06-19] MEDS: ENOXAPARIN INJ 40 MG/0.4 ML SYR SQ SCH (07:34)
[2022-06-19] MEDS: CYANOCOBALAMIN (B-12) 500 MCG TABLET PO SCH (07:34)
[2022-06-19] MEDS: FLUTICASONE PROPIONATE NA SPR 16 GM BTL SCH (07:34)
[2022-06-19] MEDS: FLUTICASONE/VILANTEROL 200/25MCG 14 PUFFS/INHALER INH SCH (07:35)
[2022-06-19] MEDS: PREGABALIN 50 MG CAP PO SCH ×2 (07:41→20:53)
[2022-06-19 08:18] LABS: Appearance Urine Clear (Clear); Bacteria Urine Automated Negative (Negative); Bilirubin Urine Negative (Negative); Blood Urine Negative (Negative); Color Urine Yellow; Glucose Urine UA Negative (Negative); Ketones Urine Negative (Negative); Leukocyte Esterase Urine Negative (Negative); Nitrite Urine Negative (Negative); Protein Urine Trace (Negative); RBC Urine Automated 0-4 /hpf (0-4); Urobilinogen Urine Negative (Negative); pH Urine 6.5 (4.5-7.5)
[2022-06-19] MEDS: INSULIN ASPART PER UNIT SC SCH ×4 (08:42→20:49)
[2022-06-19] MEDS ORDERED: MAGNESIUM OXIDE 400 MG TAB PO SCH (09:00)
--- NOTE | 2022-06-19 10:38 | Pharmacy Report ---
Pharmacy PK ABX Note - Date of Service June 19, 2022 - Assessment and Plan Assessment 76 year old F receiving vancomycin and zosyn for treatment of skin and soft tissue infection. Recent necrotizing fasciitis and bacteremia requiring I&D at [facility]. Placed on oral clindamycin and ciprofloxacin upon discharge. 05/24 buttock cultures (+) MRSA and Pseudomonas. Day # 1 of antimicrobial therapy. Plan Vancomycin * Loading dose: 1750 mg IV x 1 * Maintenance dose: 1000 mg IV every 12 hours * Regimen is predicted to achieve target AUC/DINORA of 400-600 mg/L.hr * Random level ordered for: 9/6 AM Pharmacy will continue to follow and will adjust dose/frequency as necessary. Thank you. Pharmacy has transitioned to AUC monitoring for vancomycin. AUC/DINORA is the preferred PK/PD target and is associated with decreased risk of nephrotoxicity compared to traditional trough targets.
[2022-06-19] MEDS: PIPERACILLIN/TAZOBACTAM 4.5 GM in DEXTROSE 5% 100 ML IV SCH ×2 (10:45→17:05)
[2022-06-19] MEDS: VANCOMYCIN HCL 1,000 MG in SODIUM CHLORIDE 0.9% 250 ML IV SCH ×2 (11:52→23:28)
--- NOTE | 2022-06-19 13:13 | Hospitalist Progress Note ---
Date of Service June 19, 2022 Assessment & Plan (1) Necrotizing fasciitis: Plan: Presented to the [facility] with them abrasion and abscess of the right buttock and seen by surgery service while in [facility] Noted to have sepsis with bacteremia and was treated appropriately with infectious disease help from [place] Has had repeat CT scan on 06 June and noted to have necrotizing fasciitis and was transferred to [place] for surgical intervention Has had I & D in [place] with improvement of her necrotizing fasciitis Has been on oral antibiotic and will continue accordingly Complains today of pain but no fever and or chills and no increase in white count Will ask wound care consult Has had fever last night up to 39.3-blood cultures were taken and she has been started with intravenous vancomycin and Zosyn Remains weak and lethargic this morning Will get surgery involved (2) Abscess of buttock, right: Plan: As above Still has the gauze packing in wound of the right buttock New wound over left buttock as well Surgery has been consulted (3) Overdose of trazodone: Plan: Initial admission to [facility] on 05/22/2022 with trazodone overdose and suicidal ideation Psychiatric evaluation was done and the patient was cleared to continue antidepressant as prescribed No more suicidal ideation We will continue current medications for depression and anxiety No issues with suicidal ideation and or overdose (4) Depression: Plan: Has depression/anxiety Medications has been adjusted and will continue as planned and will (5) Diabetes mellitus, type II: Plan: Continue with current medications We will hold up any metformin SSI (6) Hypertension: Plan: Blood pressure is noted to be elevated at 167/89 We will continue with current medications to control blood pressure (7) Dyslipidemia: Plan: Continue statin (8) Hypothyroidism: Plan: Continue supplement (9) Sleep apnea: Plan: Continue to use CPAP at nighttime Plan DVT prophylaxis Subcu Lovenox CODE STATUS Full Admission and Anticipated Discharge Date Admission Date: June 18, 2022 Subjective 06/19/2022 The patient was seen and examined in medical floor She was noted to have high fever last night and this morning she has been weak and lethargic Still remains very weak and lethargic Denies any chest pain, palpitation or shortness of breath Review of Systems Review of Systems: All systems reviewed and are unremarkable except as noted below Physical Exam Physical Exam: Lying in bed comfortably Constitutional: well developed, well nourished, + ill appearing and + obese Eyes: PERRL, conjunctivae normal, anicteric sclerae ENMT: external ear and nose normal, oropharynx normal Neck: trachea midline, no thyromegaly Respiratory: no respiratory distress Auscultation: lungs clear to auscultation bilaterally; no crackles Cardiovascular: Rate/Rhythm: regular rate, regular rhythm and + tachycardic Heart Sounds: normal S1; no murmur Extremities: no edema Gastrointestinal (Abdomen): Inspection/Auscultation: + abdomen distended and normal bowel sounds Percussion/Palpation: abdomen soft; abdomen nontender Musculoskeletal: No acute arthritis involving any of the joints Skin: Right buttock wound is bandaged and has gauze packing in situ. Neurologic: normal touch/pain/proprioception and moves all extremities; no focal motor deficits and not confused Psychiatric: A+Ox3, euthymic affect Lymphatic: no cervical or axillary lymphadenopathy Results & Data Results & Data ([facility]) Vital Signs (Past 12 Hours) Vital Signs Temp Pulse Resp BP BP Pulse Ox O2 Del Method 06/19/22 12:42 37.8 C H 120 H 18 130/80 96 Room Air 06/19/22 11:25 37 C 06/19/22 08:00 Room Air 06/19/22 07:16 38.1 C H 114 H 24 138/84 93 Room Air 06/19/22 06:47 37.4 C 114 H 28 H 92 Room Air 06/19/22 04:39 37.7 C H 06/19/22 03:08 39.3 C H 119 H 36 H 154/87 H 93 Room Air Laboratory Results Short CBC 06/19/22 Range/Units 03:33 WBC 5.80 (4.8-10.8) K/ul Hgb 7.9 L (12.0-16.0) g/dl Hct 25.7 L (34.1-44.9) % Plt Count 221 (130-400) K/uL BMP 06/19/22 03:33 Sodium 133 L Potassium 3.6 Chloride 99 Carbon Dioxide 24 BUN 11 Creatinine 0.77 Glucose 160 H Calcium 8.4 L Liver Function 06/19/22 Range/Units 03:33 Total Bilirubin 0.5 (0.2-1.0) mg/dl AST 15 (13-39) U/L ALT 10 (7-52) U/L Alkaline Phosphatase 53 (34-104) U/L Albumin 3.4 (3.4-5.0) gm/dl Urine 06/19/22 Range/Units 08:00 Urine Color Yellow Urine Appearance Clear (Clear) Urine pH 6.5 (4.5-7.5) Ur Specific [place] 1.010 (1.000-1.030) Urine Protein Trace H (Negative) Urine Glucose (UA) Negative (Negative) Medications Administered Current Inpatient Medications Acetaminophen (Acetaminophen 500 Mg Tab) 500 mg PO Q4H PRN PRN Reason: Pain Stop: 07/18/22 12:12 Last Admin: 06/19/22 10:45 Dose: 500 mg Albuterol (Albuterol Hfa 8 Gm Inhaler) 2 puffs INH Q4R PRN PRN Reason: SHORT OF BREATH or wheezing Stop: 07/18/22 13:35 Albuterol (Albuterol 0.083% Nebu Soln 3 Ml Vial) 2.5 mg INH Q4R PRN; Protocol PRN Reason: Shortness Of Breath Or Wheezing Stop: 07/18/22 12:12 Aspirin (Aspirin 81 Mg Ectab) 81 mg PO DAILY SARAI Stop: 07/18/22 12:14 Last Admin: 06/19/22 07:33 Dose: 81 mg Benzonatate (Benzonatate 100 Mg Capsule) 100 mg PO TID PRN PRN Reason: Cough Stop: 07/18/22 12:12 Bupropion HCl (Bupropion Sr 100 Mg Tabcr) 100 mg PO BID SARAI Stop: 07/18/22 20:59 Last Admin: 06/19/22 07:30 Dose: 100 mg Buspirone HCl (Buspirone 5 Mg Tab) 5 mg PO BID SARAI Stop: 07/18/22 20:59 Last Admin: 06/19/22 07:29 Dose: 5 mg Ciprofloxacin (Ciprofloxacin 500 Mg Tab) 500 mg PO BID SARAI Stop: 06/20/22 12:14 Last Admin: 06/19/22 07:30 Dose: 500 mg Clindamycin HCl (Clindamycin Hcl 150 Mg Cap) 300 mg PO TID SARAI Stop: 06/20/22 13:59 Last Admin: 06/19/22 07:30 Dose: 300 mg Cyanocobalamin (Cyanocobalamin (B-12) 500 Mcg Tablet) 1,000 mcg PO DAILY SARAI Stop: 07/19/22 08:59 Last Admin: 06/19/22 07:34 Dose: 1,000 mcg Cyclobenzaprine HCl (Cyclobenzaprine Hcl 5 Mg Tab) 5 mg PO TID PRN PRN Reason: Pain Stop: 07/18/22 12:12 Last Admin: 06/18/22 21:18 Dose: 5 mg Donepezil HCl (Donepezil Hcl 10 Mg Tab) 10 mg PO DAILY SARAI Stop: 07/19/22 08:59 Last Admin: 06/19/22 07:33 Dose: 10 mg Duloxetine HCl (Duloxetine Hcl 60 Mg Cap) 60 mg PO QAM SARAI Stop: 07/19/22 08:59 Last Admin: 06/19/22 07:33 Dose: 60 mg Enoxaparin Sodium (Enoxaparin Inj 40 Mg/0.4 Ml Syr) 40 mg SQ QAM SARAI Stop: 07/18/22 10:14 Last Admin: 06/19/22 07:34 Dose: 40 mg Ezetimibe/Simvastatin (Ezetimibe/Simvastatin 08/03 Tab) 1 tab PO DAILY SARAI Stop: 07/19/22 08:59 Last Admin: 06/19/22 07:33 Dose: 1 tab Famotidine (Famotidine 40 Mg Tablet) 40 mg PO BID SARAI Stop: 07/18/22 20:59 Last Admin: 06/19/22 07:30 Dose: 40 mg Fish Oil ([place]-3 (Purified Fish Oil) 1 Gm Cap) 1 gm PO DAILY SARAI Stop: 07/19/22 08:59 Last Admin: 06/19/22 07:33 Dose: 1 gm Fluticasone Propionate (Fluticasone Propionate Na Spr 16 Gm Btl) 2 sprays NA DAILY SARAI Stop: 07/19/22 08:59 Last Admin: 06/19/22 07:34 Dose: 2 sprays Fluticasone/Vilanterol (Fluticasone/Vilanterol 200/25mcg 14 Puffs/Inhaler) 1 puffs INH DAILY SARAI Stop: 07/18/22 12:14 Last Admin: 06/19/22 07:35 Dose: 1 puffs Folic Acid (Folic Acid 400 Mcg Tab) 800 mcg PO QAM SARAI Stop: 07/19/22 08:59 Last Admin: 06/19/22 07:32 Dose: 800 mcg Piperacillin Sod/Tazobactam (Sod 4.5 gm/ Dextrose) 120 mls @ 30 mls/hr IV Q8H [facility]; Protocol Stop: 06/26/22 09:59 Last Admin: 06/19/22 10:45 Dose: 30 mls/hr Vancomycin HCl 1,000 mg/ (Sodium Chloride) 270 mls @ 200 mls/hr IV Q12H SARAI Stop: 06/26/22 10:59 Last Admin: 06/19/22 11:52 Dose: 200 mls/hr Sodium Chloride (Nss 1000ml) 1,000 mls @ 125 mls/hr IV .Q8H SARAI Stop: 06/20/22 12:59 Insulin Aspart (Insulin Aspart Per Unit) 0 units SC ACHS SARAI Stop: 07/18/22 11:29 Last Admin: 06/19/22 12:26 Dose: 6 units Lactobacillus Acidophilus (Advanced Probiotic 1250 Mg Capsule) 2 cap PO DAILY SARAI Stop: 07/18/22 13:59 Last Admin: 06/19/22 07:33 Dose: 2 cap Lamotrigine (Lamotrigine 100 Mg Tab) 150 mg PO QPM SARAI Stop: 07/18/22 20:59 Last Admin: 06/18/22 21:17 Dose: 150 mg Levothyroxine Sodium (Levothyroxine Sodium 100 Mcg Tablet) 100 mcg PO DAILYBB SARAI Stop: 07/19/22 06:29 Last Admin: 06/19/22 06:42 Dose: 100 mcg Lisinopril (Lisinopril 40 Mg Tab) 40 mg PO DAILY SARAI Stop: 07/18/22 12:14 Last Admin: 06/19/22 07:32 Dose: 40 mg Magnesium Oxide (Magnesium Oxide 400 Mg Tab) 400 mg PO Q2D SARAI Stop: 07/19/22 08:59 Last Admin: 06/19/22 07:34 Dose: 400 mg Memantine (Memantine Hcl 5 Mg Tab) 5 mg PO BID SARAI Stop: 07/18/22 20:59 Last Admin: 06/19/22 07:31 Dose: 5 mg Miscellaneous (Iodosorb-Order Awaiting Action) 1 each N/A QS SARAI Stop: 07/18/22 15:59 Last Admin: 06/19/22 07:29 Dose: Not Given Miscellaneous Information (Vancomycin Consult Active) 1 each N/A UD PRN PRN Reason: Consult Stop: 07/19/22 03:25 Montelukast Sodium (Montelukast Sodium 10 Mg Tablet) 10 mg PO HS SARAI Stop: 07/18/22 20:59 Last Admin: 06/18/22 21:17 Dose: 10 mg Multivitamins/Minerals (Calcium 600mg + Vit D 400 Iu Tab) 1 tab PO BID SARAI Stop: 07/18/22 20:59 Last Admin: 06/19/22 07:30 Dose: 1 tab Ondansetron HCl (Ondansetron 4 Mg Od Tab) 4 mg PO Q6H PRN PRN Reason: NAUSEA/VOMITING Stop: 07/18/22 12:19 Oxycodone HCl (Oxycodone Hcl Ir 5 Mg Tab (Immediate Release)) 10 mg PO Q6H PRN PRN Reason: Pain Stop: 07/02/22 10:37 Last Admin: 06/19/22 03:35 Dose: 10 mg Pantoprazole Sodium (Pantoprazole 40 Mg Tab) 40 mg PO DAILYBB SARAI Stop: 07/19/22 06:29 Last Admin: 06/19/22 06:42 Dose: 40 mg Pregabalin (Pregabalin 50 Mg Cap) 50 mg PO BID SARAI Stop: 07/18/22 12:14 Last Admin: 06/19/22 07:41 Dose: 50 mg Trazodone HCl (Trazodone Hcl 50 Mg Tab) 25 mg PO HS SARAI Stop: 07/18/22 20:59 Last Admin: 06/18/22 21:20 Dose: 25 mg Vitamin E (Tocopheryl, Dl-Alpha 400 Units 180 Mg Cap) 400 units PO HS SARAI Stop: 07/18/22 20:59 Last Admin: 06/18/22 21:16 Dose: 400 units
--- NOTE | 2022-06-19 13:22 | Surgery Consultation ---
Date of Consultation June 19, 2022 Assessment & Plan (1) Buttock wound: This is a 76y F with a PMH of DM2, HLD, CKD, fibromyalgia, HUNTER, HTN, vascular dementia, who presented to the [facility] on 06/18/22 as a transfer from [facility]. Of significance patient was admitted here in beginning of May for drug overdose and was found to have sepsis from a R buttock wound. This was I&D by Dr. Amador on 05/24/22. Then follow on 06/[address] scan was obtained revealing evidence of possible necrotizing fasciitis and the patient was transferred to [facility] where they took her to the OR for repeat I&D on 06/07. She was transferred back here for assistance with disposition planning. Unfortunately patient starting spiking sp iked fevers early this AM and has been tachycardic throughout today. We have been asked to evaluate patient's buttocks wound, which overall is clean. Wound was probed at bedside, noted to be deep and some bloody fluid expressed. Was repacked with a corner of 4x4 gauze. Agree with course of IV abx and restarting IVF for now. No urgent need for surgical intervention today. Can reconsider imaging if worsening symptoms. Will discuss with Dr. Amador tomorrow if he will take over patient's care as he operated on her for this <1month ago. Will ask RN to obtain new wound cultures with next dressing change. Supervising Physician Co-Signing Physician Notes Dr. Sanchezase see Kelley Gage's note. Patient transferred from [facility] yesterday after undergoing incision and drainage of a right gluteal deep abscess and necrotizing fasciitis She apparently is to have further antibiotics and then be transferred to rehab She had a fever last night I did examine her wound and was able to explore it with my digit several centimeters with serous fluid no purulence no deep purulent cavity-the main cavity is 4 to 5 cm deep We placed a gauze pad I will discuss the case with Dr. Amador-who is operated on her in the past It may be that she requires additional imaging and possible transfer back to [place] History of Present Illness Attending Physician: Deb Seth MD History of Present Illness This is a 76y F with a PMH of DM2, HLD, CKD, fibromyalgia, HUNTER, HTN, vascular dementia, who presented to the [facility] on 06/18/22 with pain of her buttocks wound. Of significance patient was admitted here in beginning of May for drug overdose and was found to have sepsis from a R buttock wound. This was I&D by Dr. Amador on 05/24/22. Then follow on 06/[address] scan was obtained revealing evidence of possible necrotizing fasciitis and the patient was transferred to [facility] where they took her to the OR for repeat I&D on 06/07. She tells me she has been on abx. Yesterday she was transferred from [place] to here for ongoing discharge planning. The patient cannot express to me if she had a wound vac and says it has been packed. Patient reports weakness and inability to stand well today. Allergies Allergy/AdvReac Type Severity Reaction Status Date / Time miconazole Allergy Intermediate SEVERE Verified 05/22/22 02:54 BURNING ITCHING morphine Allergy Intermediate ITCHING, Verified 05/22/22 02:54 ABD PAIN erythromycin base Allergy Unknown Unknown Verified 05/22/22 02:54 baclofen AdvReac Intermediate NAUSEA/VOMI Verified 05/22/22 02:54 TING clonazepam AdvReac Intermediate PSYCH Verified 05/22/22 02:54 COMPLICATIONS codeine AdvReac Intermediate DYSPEPSIA Verified 05/22/22 02:54 doxycycline AdvReac Intermediate GASTRITIS Verified 05/22/22 02:54 gabapentin AdvReac Intermediate FATIGUE Verified 05/22/22 02:54 Macrolide Antibiotics AdvReac Intermediate DYSPEPSIA Verified 05/22/22 02:54 (TOLERATED Z-PACK) primidone AdvReac Intermediate PSYCH Verified 05/22/22 02:54 COMPLICATIONS Home Medications Medication Instructions Recorded Confirmed Type albuterol sulfate 90 mcg/actuation 2 inh inhalation Q4H PRN SHORT OF 02/13/19 06/18/22 History breath activated powder inhaler BREATH or wheezing bupropion HCl 100 mg tablet,12 hr 100 mg PO BID 02/13/19 06/18/22 History sustained-release (Wellbutrin SR) celecoxib 200 mg capsule (Celebrex) 200 mg PO QAM pain 02/13/19 06/18/22 History cholecalciferol (vitamin D3) 25 1,000 unit PO QAM 02/13/19 06/18/22 History mcg (1,000 unit) tablet (Vitamin D3) cyclobenzaprine 5 mg tablet 5 mg PO TID PRN Pain 02/13/19 06/18/22 History donepezil 10 mg tablet (Aricept) 10 mg PO DAILY 02/13/19 06/18/22 History esomeprazole magnesium 40 mg 40 mg PO DAILYBB 02/13/19 06/18/22 History capsule,delayed release (Nexium) ezetimibe 10 mg-simvastatin 20 mg 1 tab PO DAILY 02/13/19 06/18/22 History tablet (Vytorin) fluticasone propionate 50 2 spray intranasal DAILY 02/13/19 06/18/22 History mcg/actuation nasal spray,suspension (Flonase Allergy Relief) folic acid 0.8 mg capsule 0.8 mg PO QAM 02/13/19 06/18/22 History lamotrigine 150 mg tablet 150 mg PO QPM 02/13/19 06/18/22 History (Lamictal) levothyroxine 100 mcg tablet 100 mcg PO DAILYBB 02/13/19 06/18/22 History memantine 14 mg capsule 14 mg PO QAM 02/13/19 06/18/22 History sprinkle,extended release 24hr (Namenda XR) metformin 1,000 mg tablet 1,000 mg PO BID 02/13/19 06/18/22 History montelukast 10 mg tablet 10 mg PO HS 02/13/19 06/18/22 History (Singulair) kqqefddxfcsg-enusgnnk-dxhfxf 1 tab PO QAM 02/13/19 06/18/22 History tablet (Multivitamin 50 Plus tablet) vitamin E 268 mg (400 unit) capsule 400 unit PO HS 02/13/19 06/18/22 History trazodone 50 mg tablet 25 mg PO HS 11/13/19 06/18/22 History famotidine 40 mg tablet (Pepcid) 40 mg PO BID 04/12/20 06/18/22 History duloxetine 60 mg capsule,delayed 60 mg PO DAILY 05/19/21 06/18/22 History release (Cymbalta) furosemide 40 mg tablet 40 mg PO DAILY #90 tabs 11/22/21 06/18/22 Rx acetaminophen 650 mg 1,300 mg PO AMHS 01/19/22 05/22/22 History tablet,extended release aspirin 81 mg tablet,delayed 81 mg PO DAILY 01/19/22 06/18/22 History release (Yolis Low Dose Aspirin) buspirone 5 mg tablet 5 mg PO BID 01/19/22 06/18/22 History calcium carbonate 600 mg-vitamin 1 tab PO BID 01/19/22 06/18/22 History D3 20 mcg (800 unit) chewable tablet (Caltrate 600 plus D) cyanocobalamin (vitamin B-12) 1,000 mcg PO DAILY 01/19/22 06/18/22 History 1,000 mcg tablet (Vitamin B-12) lisinopril 40 mg tablet 40 mg PO DAILY #90 tabs 04/04/22 06/18/22 Rx L.acidoph-L.rhamn-B.bifidum-B.long 1 tab PO DAILY 05/22/22 06/18/22 History 12.9 mg (2 billion cell) tablet, (Probiotic Acidophilus Obviousideabrenda) albuterol sulfate 2.5 mg/3 mL 2.5 mg inhalation DIRECTED PRN 05/22/22 06/18/22 History (0.083 %) solution for nebulization Shortness Of Breath Or Wheezing benzonatate 100 mg capsule 100 mg PO TID PRN Cough 05/22/22 06/18/22 History magnesium oxide 400 mg PO Q OTHER DAY 05/22/22 06/18/22 History ondansetron HCl 4 mg tablet 4 mg PO Q6H PRN NAUSEA/VOMITING 05/22/22 06/18/22 History pregabalin 50 mg capsule (Lyrica) 50 mg PO BID 05/22/22 06/18/22 History acetaminophen 500 mg tablet 500 mg PO Q4H PRN Pain 06/18/22 06/18/22 History cadexomer iodine 0.9 % topical gel 1 ea topical DAILY apply to toe 06/18/22 06/18/22 History ciprofloxacin HCl 500 mg tablet 500 mg PO BID 06/18/22 06/18/22 History (Cipro) clindamycin HCl 300 mg capsule 300 mg PO TID 06/18/22 06/18/22 History fluticasone furoate 200 1 inh inhalation DAILY 06/18/22 06/18/22 History mcg-vilanterol 25 mcg/dose inhalation powder (Breo Ellipta) omega-3 fatty acids 1,000 mg PO DAILY 06/18/22 06/18/22 History oxycodone 10 mg tablet 10 mg PO Q4H PRN severe incisional 06/18/22 06/18/22 History pain Patient History Medical History Acute hyponatremia Acute kidney injury Anemia Anxiety Asthma STABLE Cyclothymic disorder MOOD DISORDER Depression Diabetes mellitus, type 2 NIDDM Dry eye syndrome Dyspepsia CHRONIC FELT D/T MEDICATION INTERACTIONS (POLYPHARMACY) Fibromyalgia GERD (gastroesophageal reflux disease) OCCASIONAL History of blood transfusion REMOTE POST-OP Hyperlipidemia Hypertension Hyponatremia Hypothyroidism Kidney stones Metabolic acidosis with increased anion gap and accumulation of organic acids Migraine 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 Osteoarthritis Peripheral neuropathy B/L UE/LE Sleep apnea BIPAP Spinal stenosis Ventral hernia Surgical History Fusion of spine LUMBAR X2 H/O foot surgery RIGHT HAMMERTOE AND BUNION REPAIR H/O: hysterectomy + ANTERIOR/POSTERIOR REPAIR History of bladder surgery SUSPENSION History of cataract surgery RIGHT/LEFT History of section History of cholecystectomy History of colonoscopy History of esophagogastroduodenoscopy (EGD) History of shoulder surgery RIGHT SHOULDER History of surgery perianal fistula History of tonsillectomy Adenoidectomy History of tooth extraction History of total knee replacement RIGHT/LEFT History of vaginal hysterectomy Family History Mother Family history of diabetes mellitus COPD (chronic obstructive pulmonary disease) Diabetes Hypertension Brother Family history of diabetes mellitus Diabetes Renal failure Sister Family history of diabetes mellitus Malignant melanoma Uncle Family hx of colon cancer Colorectal cancer Paternal Aunt Breast cancer Maternal Ovarian cancer Paternal Social History Smoking Status: Never smoker Second Hand Exposure: No; Do You Dip or Chew Tobacco: No; Hx Alcohol Use: No Hx Substance Use: No Preferred Language: [place] Communication Ability: Effective Visual Impairment: Limited Hearing Ability: Normal Support Staff Required: No Beliefs That Will Affect Care: None marital status: Current Living Situation: Spouse How many Children do You have: 2 Other Information That Helps Us Care for You: No Feels Safe at Home: Yes Safety Concerns: Feels Safe At This Time Assistive Devices: Cane, Walker and Wheelchair Review of Systems Constitutional: + fever and + weakness; no chills Respiratory: no dyspnea Integumentary: pain to right buttocks wound with drainage Physical Exam Physical Exam: awake, no acute distress Constitutional: + obese; no acute distress Respiratory: normal respiratory effort Skin: + open R buttocks wound, wound be is clean, some bloody drainage expressed, mild discomfort to palpation Results & Data ([facility]) Vital Signs (Past 12 Hours) Vital Signs Temp Pulse Resp BP BP Pulse Ox O2 Del Method 06/19/22 12:42 37.8 C H 120 H 18 130/80 96 Room Air 06/19/22 11:25 37 C 06/19/22 08:00 Room Air 06/19/22 07:16 38.1 C H 114 H 24 138/84 93 Room Air 06/19/22 06:47 37.4 C 114 H 28 H 92 Room Air 06/19/22 04:39 37.7 C H 06/19/22 03:08 39.3 C H 119 H 36 H 154/87 H 93 Room Air PG Care Time/CCT Total # of Minutes Spent Total Time Spent with Patient: Total time spent is greater than 50% in coordination of care (as documented) at patient's floor/unit and/or counseling patient: Coding Level of Care Code 08759 Initial Inpt Care Lvl 1 Diagnoses Buttock wound S31.809A
[2022-06-19] MEDS: SODIUM CHLORIDE 0.9% 1000ML 1,000 ML IV SCH ×2 (13:26→20:53)
[2022-06-19] MEDS: TOCOPHERYL, DL-ALPHA 400 UNITS 180 MG CAP PO SCH (20:47)
[2022-06-19] MEDS: MONTELUKAST SODIUM 10 MG TABLET PO SCH (20:48)
[2022-06-19] MEDS: lamoTRIgine 100 MG TAB PO SCH (20:48)
[2022-06-19] MEDS: traZODone HCL 50 MG TAB PO SCH (20:53)
[2022-06-20] MEDS: PIPERACILLIN/TAZOBACTAM 4.5 GM in DEXTROSE 5% 100 ML IV SCH ×3 (02:11→17:56)
[2022-06-20] MEDS: LEVOTHYROXINE SODIUM 100 MCG TABLET PO SCH (06:10)
[2022-06-20] MEDS: PANTOprazole 40 MG TAB PO SCH (06:11)
[2022-06-20] MEDS: SODIUM CHLORIDE 0.9% 1000ML 1,000 ML IV SCH (07:40)
[2022-06-20 08:23] LABS: Hematocrit (blood only) 24.7 % (34.1-44.9); Hemoglobin 7.7 g/dl (12.0-16.0); Mean Corpuscular Hemoglobin 25.2 pg (25.0-34.0); Mean Corpuscular Hgb Conc 31.2 g/dL (32.0-36.0); Mean Platelet Volume 9.9 fL (9.4-12.3); Platelet Count 172 K/uL (130-400); RDW Coefficient of Variation 18.4 % (11.5-14.5); Red Blood Count 3.05 M/uL (3.93-5.22); White Blood Count 3.74 K/ul (4.8-10.8)
[2022-06-20 08:51] LABS: Albumin Globulin Ratio 1.2 (0.9-2); Albumin Level 3.1 gm/dl (3.4-5.0); BUN Creatinine Ratio 9.5 (10-20); Bilirubin,Total 0.4 mg/dl (0.2-1.0); Creatinine Clr Calc Pharmacy 84.4 ml/min; Est GFR (African American) 102.4 ml/min; Est GFR (Non-African American) 88.4 ml/min; Globulin 2.6 gm/dl (2.5-4.0); Magnesium 1.5 mg/dl (1.7-2.4); Potassium 2.9 mmol/L (3.5-5.1); Total Protein 5.7 gm/dl (6.0-8.3)
--- NOTE | 2022-06-20 09:03 | Pharmacy Report ---
Pharmacy PK ABX Note - Date of Service June 20, 2022 - Assessment and Plan Assessment 76 year old F receiving vancomycin and zosyn for treatment of skin and soft tissue infection. Recent necrotizing fasciitis and bacteremia requiring I&D at [facility]. Placed on oral clindamycin and ciprofloxacin upon discharge. 05/24 buttock cultures (+) MRSA and Pseudomonas. Day # 2 of antimicrobial therapy. Plan Vancomycin * Recent level of 13.9 mg/mL on vancomycin 1000 mg IV q12 correlates to AUC of 418 mg/L.hr * Increase Maintenance dose: 1250 mg IV every 12 hours * Regimen is predicted to achieve target AUC/DINORA of 400-600 mg/L.hr (AUC of 518 mg/L.hr with Pauc of 86%). Kidney toxicity estimated at 12% * Random level ordered for: 9/8 AM Pharmacy will continue to follow and will adjust dose/frequency as necessary. Thank you. Pharmacy has transitioned to AUC monitoring for vancomycin. AUC/DINORA is the preferred PK/PD target and is associated with decreased risk of nephrotoxicity compared to traditional trough targets.
[2022-06-20] MEDS: FOLIC ACID 400 MCG TAB PO SCH (09:16)
[2022-06-20] MEDS: DULoxetine HCL 60 MG CAP PO SCH (09:16)
[2022-06-20] MEDS: CYANOCOBALAMIN (B-12) 500 MCG TABLET PO SCH (09:17)
[2022-06-20] MEDS: EZETIMIBE/SIMVASTATIN 10/20 TAB PO SCH (09:17)
[2022-06-20] MEDS: lisinopril 40 MG TAB PO SCH (09:18)
[2022-06-20] MEDS: CALCIUM 600MG + VIT D 400 IU TAB PO SCH ×2 (09:19→21:24)
[2022-06-20] MEDS: ADVANCED PROBIOTIC 1250 MG CAPSULE PO SCH (09:19)
[2022-06-20] MEDS: ASPIRIN 81 MG ECTAB PO SCH (09:19)
[2022-06-20] MEDS: DONEPEZIL HCL 10 MG TAB PO SCH (09:19)
[2022-06-20] MEDS: buPROPion SR 100 MG TABCR PO SCH ×2 (09:20→21:25)
[2022-06-20] MEDS: busPIRone 5 MG TAB PO SCH ×2 (09:20→21:25)
[2022-06-20] MEDS: OMEGA-3 (PURIFIED FISH OIL) 1 GM CAP PO SCH (09:20)
[2022-06-20] MEDS: FAMOTIDINE 40 MG TABLET PO SCH ×2 (09:21→21:22)
[2022-06-20] MEDS: MEMANTINE HCL 5 MG TAB PO SCH ×2 (09:21→21:24)
[2022-06-20] MEDS: ENOXAPARIN INJ 40 MG/0.4 ML SYR SQ SCH (09:21)
[2022-06-20] MEDS: FLUTICASONE/VILANTEROL 200/25MCG 14 PUFFS/INHALER INH SCH (09:41)
[2022-06-20] MEDS: FLUTICASONE PROPIONATE NA SPR 16 GM BTL SCH (09:41)
[2022-06-20] MEDS: PREGABALIN 50 MG CAP PO SCH ×2 (09:41→21:29)
[2022-06-20 09:43] LABS: Basophils # (auto) 0.02 K/uL (0-0.2); Basophils % (auto) 0.5 %; Eosinophils # (auto) 0.31 K/uL (0-0.50); Eosinophils % (auto) 8.3 %; Immature Granulocytes # (auto) 0.13 K/uL (0.00-0.02); Immature Granulocytes % (auto) 3.5 %; Lymphocytes % (auto) 32.1 %; Monocytes # (auto) 0.79 K/uL (0.24-0.82); Monocytes % (auto) 21.1 %; Neutrophils # (auto) 1.29 K/uL (1.4-6.5); Neutrophils % (auto) 34.5 %; Polychromasia 1+
[2022-06-20] MEDS: INSULIN ASPART PER UNIT SC SCH ×4 (09:44→21:20)
[2022-06-20] MEDS: VANCOMYCIN HCL 1,250 MG in SODIUM CHLORIDE 0.9% 250 ML IV SCH ×2 (10:04→22:15)
[2022-06-20] MEDS ORDERED: POTASSIUM CHLORIDE CRTAB 20 MEQ TABCR PO STA (10:43)
--- NOTE | 2022-06-20 10:59 | Surgery Progress Note ---
Date of Service June 20, 2022 Assessment & Plan (1) Buttock wound: Plan: pt is a 76 year-old female who is S/P I/D right buttock abscess, IMP: S/P I/D right buttock abscess, stable, pt feels better, continue IV antibiotic, correct low K, OOB wound care nurse consult for wound dressing change, repeat labs in morning, will F/U, Admission and Anticipated Discharge Date Admission Date: June 18, 2022 Supervising Physician Co-Signing Physician Notes Dr. Sanchezase see Kelley Gage's note. Patient transferred from [facility] yesterday after undergoing incision and drainage of a right gluteal deep abscess and necrotizing fasciitis She apparently is to have further antibiotics and then be transferred to rehab She had a fever last night I did examine her wound and was able to explore it with my digit several centimeters with serous fluid no purulence no deep purulent cavity-the main cavi ty is 4 to 5 cm deep We placed a gauze pad I will discuss the case with Dr. Amador-who is operated on her in the past It may be that she requires additional imaging and possible transfer back to [place] Subjective 06/19/2022 The patient was seen and examined in medical floor She was noted to have high fever last night and this morning she has been weak and lethargic Still remains very weak and lethargic Denies any chest pain, palpitation or shortness of breath 06/20/2022 10:52AM, Dr. Amador F/u I/d right buttock abscess, [place] went [place] [facility] [place] right buttock abscess on 06/07/2022. now pt feels better, no significant pain on right buttock area, the wound is packing , dry, today T 36.8 Physical Exam Constitutional: WD/WN, vitals as above Eyes: PERRL, conjunctivae normal, anicteric sclerae Neck: trachea midline, no thyromegaly Respiratory: normal respiratory effort, lungs clear to auscultation Cardiovascular: RRR, no murmur, no edema Gastrointestinal (Abdomen): normal bowel sounds, soft, nontender, no hepatosplenomegaly Skin: right buttock wound is packing wit 4x4, no significant drainage, mild redness around wound, Neurologic: patellar DTR's 2+ bilat, sensation intact Psychiatric: A+Ox3, euthymic affect Results & Data ([facility]) Vital Signs (Past 12 Hours) Vital Signs Temp Pulse Resp BP Pulse Ox O2 Del Method 06/20/22 09:14 92 H 133/73 06/20/22 07:45 36.9 C 93 H 16 164/83 H 94 Room Air Laboratory Results Abnormal lab results 06/19/22 06/19/22 06/19/22 Range/Units 12:13 17:01 20:47 WBC (4.8-10.8) K/ul RBC (3.93-5.22) M/uL Hgb (12.0-16.0) g/dl Hct (34.1-44.9) % MCHC (32.0-36.0) g/dL RDW Std Deviation (36.4-46.3) fL RDW Coeff of Zeynep (11.5-14.5) % Neut # (Auto) (1.4-6.5) K/uL Immature Gran # (Auto) (0.00-0.02) K/uL Potassium (3.5-5.1) mmol/L BUN/Creatinine Ratio (10-20) Glucose (70-99(Fasting)) mg/dl POC Glucose 169 H 135 H 119 H (70-99) mg/dl Calcium (8.5-10.1) mg/dl Magnesium (1.7-2.4) mg/dl Total Protein (6.0-8.3) gm/dl Albumin (3.4-5.0) gm/dl 06/20/22 06/20/22 06/20/22 Range/Units 07:57 08:03 08:03 WBC 3.74 L (4.8-10.8) K/ul RBC 3.05 L (3.93-5.22) M/uL Hgb 7.7 L (12.0-16.0) g/dl Hct 24.7 L (34.1-44.9) % MCHC 31.2 L (32.0-36.0) g/dL RDW Std Deviation 54.0 H (36.4-46.3) fL RDW Coeff of Zeynep 18.4 H (11.5-14.5) % Neut # (Auto) 1.29 L (1.4-6.5) K/uL Immature Gran # (Auto) 0.13 H (0.00-0.02) K/uL Potassium 2.9 L (3.5-5.1) mmol/L BUN/Creatinine Ratio 9.5 L (10-20) Glucose 121 H (70-99(Fasting)) mg/dl POC Glucose 135 H (70-99) mg/dl Calcium 8.0 L (8.5-10.1) mg/dl Magnesium 1.5 L (1.7-2.4) mg/dl Total Protein 5.7 L (6.0-8.3) gm/dl Albumin 3.1 L (3.4-5.0) gm/dl
[2022-06-20] MEDS ORDERED: POTASSIUM CHLORIDE / WTR 10 MEQ/100 ML PLCT IV SCH (11:00)
[2022-06-20] MEDS: NSS + 20MEQ KCL 20 MEQ/1,000 ML BAG IV SCH ×2 (11:15→23:21)
--- NOTE | 2022-06-20 11:29 | Electrocardiogram Report ---
Test Reason : Blood Pressure : / mmHG Vent. Rate : 113 BPM Atrial Rate : 113 BPM P-R Int : 170 ms QRS Dur : 086 ms QT Int : 350 ms P-R-T Axes : 047 016 029 degrees QTc Int : 480 ms Sinus tachycardia Nonspecific ST abnormality Abnormal ECG When compared with ECG of 24-MAY-2022 05:56, No significant change was found Confirmed by Santosh Lincoln [id number] on 06/20/2022 11:29:25 AM Referred By: Subha Chacko Confirmed By:Loi Lincoln
--- NOTE | 2022-06-20 16:02 | Hospitalist Progress Note ---
Date of Service June 20, 2022 Assessment & Plan (1) Necrotizing fasciitis: Plan: Presented to the [facility] [place] [facility] with them abrasion and abscess of the right buttock and seen by surgery service while in [facility] Noted to have sepsis with bacteremia and was treated appropriately with infectious disease help from [place] Has had repeat CT scan on 06 June and noted to have necrotizing fasciitis and was transferred to [place] for surgical intervention Has had I & D in [place] with improvement of her necrotizing fasciitis Has been on oral antibiotic and will continue accordingly Complains today of pain but no fever and or chills and no increase in white count Will ask wound care consult Has had fever last night up to 39.3-blood cultures were taken and she has been started with intravenous vancomycin and Zosyn on 06/18/2022 No more fever since morning of 06/19/2022 Continue intravenous vancomycin and Zosyn for now and oral Cipro and clindamycin have been on hold Medically better and remains stable (2) Abscess of buttock, right: Plan: As above Still has the gauze packing in wound of the right buttock New wound over left buttock as well Surgery has been consulted-appreciate surgery consult and recommendation Wound is being packed and dressings done (3) Overdose of trazodone: Plan: Initial admission to [facility] on 05/22/2022 with trazodone overdose and suicidal ideation Psychiatric evaluation was done and the patient was cleared to continue antidepressant as prescribed No more suicidal ideation We will continue current medications for depression and anxiety No issues with suicidal ideation and or overdose (4) Depression: Plan: Has depression/anxiety Medications has been adjusted and will continue as planned and will (5) Diabetes mellitus, type II: Plan: Continue with current medications We will hold up any metformin SSI (6) Hypertension: Plan: Blood pressure is noted to be elevated at 167/89 We will continue with current medications to control blood pressure (7) Dyslipidemia: Plan: Continue statin (8) Hypothyroidism: Plan: Continue supplement (9) Sleep apnea: Plan: Continue to use CPAP at nighttime Plan DVT prophylaxis Subcu Lovenox CODE STATUS Full Admission and Anticipated Discharge Date Admission Date: June 18, 2022 Subjective 06/19/2022 The patient was seen and examined in medical floor She was noted to have high fever last night and this morning she has been weak and lethargic Still remains very weak and lethargic Denies any chest pain, palpitation or shortness of breath 06/20/2022 The patient was seen and examined in medical floor No fever since this morning She has been feeling a little bit better today and denies any significant symptoms except weakness Review of Systems Review of Systems: All systems reviewed and are unremarkable except as noted below Physical Exam Physical Exam: Lying in bed comfortably Constitutional: well developed, well nourished, + ill appearing and + obese Eyes: PERRL, conjunctivae normal, anicteric sclerae ENMT: external ear and nose normal, oropharynx normal Neck: trachea midline, no thyromegaly Respiratory: no respiratory distress Auscultation: lungs clear to auscultation bilaterally; no crackles Cardiovascular: Rate/Rhythm: regular rate, regular rhythm and + tachycardic Heart Sounds: normal S1; no murmur Extremities: no edema Gastrointestinal (Abdomen): Inspection/Auscultation: + abdomen distended and normal bowel sounds Percussion/Palpation: abdomen soft; abdomen nontender Musculoskeletal: No acute arthritis in any joint Neurologic: normal touch/pain/proprioception and moves all extremities; no focal motor deficits and not confused Psychiatric: A+Ox3, euthymic affect Lymphatic: no cervical or axillary lymphadenopathy Results & Data Results & Data ([facility]) Vital Signs (Past 12 Hours) Vital Signs Temp Pulse Resp BP Pulse Ox O2 Del Method 06/20/22 15:13 36.7 C 97 H 22 138/82 97 Room Air 06/20/22 09:14 92 H 133/73 06/20/22 07:45 36.9 C 93 H 16 164/83 H 94 Room Air Laboratory Results Short CBC 06/20/22 Range/Units 08:03 WBC 3.74 L (4.8-10.8) K/ul Hgb 7.7 L (12.0-16.0) g/dl Hct 24.7 L (34.1-44.9) % Plt Count 172 (130-400) K/uL BMP 06/20/22 08:03 Sodium 138 Potassium 2.9 L Chloride 106 Carbon Dioxide 24 BUN 6 Creatinine 0.63 Glucose 121 H Calcium 8.0 L Liver Function 06/20/22 Range/Units 08:03 Total Bilirubin 0.4 (0.2-1.0) mg/dl AST 24 (13-39) U/L ALT 12 (7-52) U/L Alkaline Phosphatase 45 (34-104) U/L Albumin 3.1 L (3.4-5.0) gm/dl Medications Administered Current Inpatient Medications Acetaminophen (Acetaminophen 500 Mg Tab) 500 mg PO Q4H PRN PRN Reason: Pain Stop: 07/18/22 12:12 Last Admin: 06/19/22 10:45 Dose: 500 mg Albuterol (Albuterol Hfa 8 Gm Inhaler) 2 puffs INH Q4R PRN PRN Reason: SHORT OF BREATH or wheezing Stop: 07/18/22 13:35 Albuterol (Albuterol 0.083% Nebu Soln 3 Ml Vial) 2.5 mg INH Q4R PRN; Protocol PRN Reason: Shortness Of Breath Or Wheezing Stop: 07/18/22 12:12 Aspirin (Aspirin 81 Mg Ectab) 81 mg PO DAILY SARAI Stop: 07/18/22 12:14 Last Admin: 06/20/22 09:19 Dose: 81 mg Benzonatate (Benzonatate 100 Mg Capsule) 100 mg PO TID PRN PRN Reason: Cough Stop: 07/18/22 12:12 Bupropion HCl (Bupropion Sr 100 Mg Tabcr) 100 mg PO BID SARAI Stop: 07/18/22 20:59 Last Admin: 06/20/22 09:20 Dose: 100 mg Buspirone HCl (Buspirone 5 Mg Tab) 5 mg PO BID SARAI Stop: 07/18/22 20:59 Last Admin: 06/20/22 09:20 Dose: 5 mg Cyanocobalamin (Cyanocobalamin (B-12) 500 Mcg Tablet) 1,000 mcg PO DAILY SARAI Stop: 07/19/22 08:59 Last Admin: 06/20/22 09:17 Dose: 1,000 mcg Cyclobenzaprine HCl (Cyclobenzaprine Hcl 5 Mg Tab) 5 mg PO TID PRN PRN Reason: Pain Stop: 07/18/22 12:12 Last Admin: 06/18/22 21:18 Dose: 5 mg Donepezil HCl (Donepezil Hcl 10 Mg Tab) 10 mg PO DAILY SARAI Stop: 07/19/22 08:59 Last Admin: 06/20/22 09:19 Dose: 10 mg Duloxetine HCl (Duloxetine Hcl 60 Mg Cap) 60 mg PO QAM SARAI Stop: 07/19/22 08:59 Last Admin: 06/20/22 09:16 Dose: 60 mg Enoxaparin Sodium (Enoxaparin Inj 40 Mg/0.4 Ml Syr) 40 mg SQ QAM [facility] Stop: 07/18/22 10:14 Last Admin: 06/20/22 09:21 Dose: 40 mg Ezetimibe/Simvastatin (Ezetimibe/Simvastatin 08/03 Tab) 1 tab PO DAILY SARAI Stop: 07/19/22 08:59 Last Admin: 06/20/22 09:17 Dose: 1 tab Famotidine (Famotidine 40 Mg Tablet) 40 mg PO BID SARAI Stop: 07/18/22 20:59 Last Admin: 06/20/22 09:21 Dose: 40 mg Fish Oil ([place]-3 (Purified Fish Oil) 1 Gm Cap) 1 gm PO DAILY SARAI Stop: 07/19/22 08:59 Last Admin: 06/20/22 09:20 Dose: 1 gm Fluticasone Propionate (Fluticasone Propionate Na Spr 16 Gm Btl) 2 sprays NA DAILY SARAI Stop: 07/19/22 08:59 Last Admin: 06/20/22 09:41 Dose: 2 sprays Fluticasone/Vilanterol (Fluticasone/Vilanterol 200/25mcg 14 Puffs/Inhaler) 1 puffs INH DAILY [facility] Stop: 07/18/22 12:14 Last Admin: 06/20/22 09:41 Dose: 1 puffs Folic Acid (Folic Acid 400 Mcg Tab) 800 mcg PO QAM [facility] Stop: 07/19/22 08:59 Last Admin: 06/20/22 09:16 Dose: 800 mcg Piperacillin Sod/Tazobactam (Sod 4.5 gm/ Dextrose) 120 mls @ 30 mls/hr IV Q8H [facility]; Protocol Stop: 06/26/22 09:59 Last Infusion: 06/20/22 15:47 Dose: Infused Vancomycin HCl 1,250 mg/ (Sodium Chloride) 275 mls @ 200 mls/hr IV Q12H SARAI Stop: 06/27/22 08:59 Last Infusion: 06/20/22 11:41 Dose: Infused Potassium Chloride/Sodium Chloride (Normal Saline W/20 Meq Kcl) 20 meq in 1,000 mls @ 80 mls/hr IV .[id number] [facility]; Protocol Stop: 06/22/22 00:14 Last Admin: 06/20/22 11:15 Dose: 80 mls/hr Insulin Aspart (Insulin Aspart Per Unit) 0 units SC ACHS [facility] Stop: 07/18/22 11:29 Last Admin: 06/20/22 12:33 Dose: 7 units Lactobacillus Acidophilus (Advanced Probiotic 1250 Mg Capsule) 2 cap PO DAILY [facility]AI Stop: 07/18/22 13:59 Last Admin: 06/20/22 09:19 Dose: 2 cap Lamotrigine (Lamotrigine 100 Mg Tab) 150 mg PO QPM [facility]AI Stop: 07/18/22 20:59 Last Admin: 06/19/22 20:48 Dose: 150 mg Levothyroxine Sodium (Levothyroxine Sodium 100 Mcg Tablet) 100 mcg PO DAILYBB [facility] Stop: 07/19/22 06:29 Last Admin: 06/20/22 06:10 Dose: 100 mcg Lisinopril (Lisinopril 40 Mg Tab) 40 mg PO DAILY [facility] Stop: 07/18/22 12:14 Last Admin: 06/20/22 09:18 Dose: 40 mg Magnesium Oxide (Magnesium Oxide 400 Mg Tab) 400 mg PO Q2D [facility] Stop: 07/19/22 08:59 Last Admin: 06/19/22 07:34 Dose: 400 mg Memantine (Memantine Hcl 5 Mg Tab) 5 mg PO BID [facility] Stop: 07/18/22 20:59 Last Admin: 06/20/22 09:21 Dose: 5 mg Miscellaneous (Iodosorb-Order Awaiting Action) 1 each N/A QS [facility] Stop: 07/18/22 15:59 Last Admin: 06/20/22 15:47 Dose: Not Given Miscellaneous Information (Vancomycin Consult Active) 1 each N/A UD PRN PRN Reason: Consult Stop: 07/19/22 03:25 Montelukast Sodium (Montelukast Sodium 10 Mg Tablet) 10 mg PO HS [facility] Stop: 07/18/22 20:59 Last Admin: 06/19/22 20:48 Dose: 10 mg Multivitamins/Minerals (Calcium 600mg + Vit D 400 Iu Tab) 1 tab PO BID [facility] Stop: 07/18/22 20:59 Last Admin: 06/20/22 09:19 Dose: 1 tab Ondansetron HCl (Ondansetron 4 Mg Od Tab) 4 mg PO Q6H PRN PRN Reason: NAUSEA/VOMITING Stop: 07/18/22 12:19 Oxycodone HCl (Oxycodone Hcl Ir 5 Mg Tab (Immediate Release)) 10 mg PO Q6H PRN PRN Reason: Pain Stop: 07/02/22 10:37 Last Admin: 06/19/22 14:51 Dose: 10 mg Pantoprazole Sodium (Pantoprazole 40 Mg Tab) 40 mg PO DAILYBB [facility]AI Stop: 07/19/22 06:29 Last Admin: 06/20/22 06:11 Dose: 40 mg Pregabalin (Pregabalin 50 Mg Cap) 50 mg PO BID [facility] Stop: 07/18/22 12:14 Last Admin: 06/20/22 09:41 Dose: 50 mg Trazodone HCl (Trazodone Hcl 50 Mg Tab) 25 mg PO HS [facility]AI Stop: 07/18/22 20:59 Last Admin: 06/19/22 20:53 Dose: 25 mg Vitamin E (Tocopheryl, Dl-Alpha 400 Units 180 Mg Cap) 400 units PO HS [facility]AI Stop: 07/18/22 20:59 Last Admin: 06/19/22 20:47 Dose: 400 units
[2022-06-20] MEDS: TOCOPHERYL, DL-ALPHA 400 UNITS 180 MG CAP PO SCH (21:23)
[2022-06-20] MEDS: MONTELUKAST SODIUM 10 MG TABLET PO SCH (21:24)
[2022-06-20] MEDS: lamoTRIgine 100 MG TAB PO SCH (21:26)
[2022-06-20] MEDS: traZODone HCL 50 MG TAB PO SCH (21:29)
[2022-06-20] MEDS: oxyCODONE HCL IR 5 MG TAB (IMMEDIATE RELEASE) PO PRN (22:15)
[2022-06-21] MEDS: PIPERACILLIN/TAZOBACTAM 4.5 GM in DEXTROSE 5% 100 ML IV SCH ×3 (01:43→17:54)
[2022-06-21] MEDS: LEVOTHYROXINE SODIUM 100 MCG TABLET PO SCH (05:56)
[2022-06-21] MEDS: PANTOprazole 40 MG TAB PO SCH (05:56)
[2022-06-21 06:41] LABS: Hematocrit (blood only) 22.8 % (34.1-44.9); Hemoglobin 6.9 g/dl (12.0-16.0); Mean Corpuscular Hemoglobin 24.8 pg (25.0-34.0); Mean Corpuscular Hgb Conc 30.3 g/dL (32.0-36.0); Mean Platelet Volume 10.3 fL (9.4-12.3); Platelet Count 181 K/uL (130-400); RDW Coefficient of Variation 18.2 % (11.5-14.5); RDW Standard Deviation 54.1 fL (36.4-46.3); Red Blood Count 2.78 M/uL (3.93-5.22); White Blood Count 5.06 K/ul (4.8-10.8)
[2022-06-21 07:23] LABS: BUN Creatinine Ratio 10.8 (10-20); Creatinine Clr Calc Pharmacy 47.9 ml/min; Est GFR (African American) 56.7 ml/min; Est GFR (Non-African American) 48.9 ml/min; Potassium 3.4 mmol/L (3.5-5.1)
[2022-06-21 07:42] LABS: Basophils # (auto) 0.02 K/uL (0-0.2); Basophils % (auto) 0.4 %; Eosinophils # (auto) 0.26 K/uL (0-0.50); Eosinophils % (auto) 5.1 %; Immature Granulocytes # (auto) 0.07 K/uL (0.00-0.02); Immature Granulocytes % (auto) 1.4 %; Lymphocytes # (auto) 1.23 K/uL (1.2-3.4); Lymphocytes % (auto) 24.3 %; Monocytes # (auto) 0.82 K/uL (0.24-0.82); Monocytes % (auto) 16.2 %; Neutrophils # (auto) 2.66 K/uL (1.4-6.5); Neutrophils % (auto) 52.6 %; Polychromasia 1+
[2022-06-21] MEDS: MEMANTINE HCL 5 MG TAB PO SCH ×2 (08:33→20:13)
[2022-06-21] MEDS: busPIRone 5 MG TAB PO SCH ×2 (08:33→20:12)
[2022-06-21] MEDS: buPROPion SR 100 MG TABCR PO SCH ×2 (08:33→20:12)
[2022-06-21] MEDS: CALCIUM 600MG + VIT D 400 IU TAB PO SCH ×2 (08:33→20:13)
[2022-06-21] MEDS: CYANOCOBALAMIN (B-12) 500 MCG TABLET PO SCH (08:33)
[2022-06-21] MEDS: DONEPEZIL HCL 10 MG TAB PO SCH (08:33)
[2022-06-21] MEDS: FOLIC ACID 400 MCG TAB PO SCH (08:33)
[2022-06-21] MEDS: MAGNESIUM OXIDE 400 MG TAB PO SCH (08:34)
[2022-06-21] MEDS: FAMOTIDINE 40 MG TABLET PO SCH ×2 (08:34→20:12)
[2022-06-21] MEDS: EZETIMIBE/SIMVASTATIN 10/20 TAB PO SCH (08:34)
[2022-06-21] MEDS: ADVANCED PROBIOTIC 1250 MG CAPSULE PO SCH (08:34)
[2022-06-21] MEDS: lisinopril 40 MG TAB PO SCH (08:34)
[2022-06-21] MEDS: DULoxetine HCL 60 MG CAP PO SCH (08:34)
[2022-06-21] MEDS: FLUTICASONE/VILANTEROL 200/25MCG 14 PUFFS/INHALER INH SCH (08:34)
[2022-06-21] MEDS: OMEGA-3 (PURIFIED FISH OIL) 1 GM CAP PO SCH (08:34)
[2022-06-21] MEDS: ASPIRIN 81 MG ECTAB PO SCH (08:34)
[2022-06-21] MEDS: FLUTICASONE PROPIONATE NA SPR 16 GM BTL SCH (08:35)
[2022-06-21] MEDS: ENOXAPARIN INJ 40 MG/0.4 ML SYR SQ SCH (08:35)
[2022-06-21] MEDS: INSULIN ASPART PER UNIT SC SCH ×4 (08:40→20:23)
[2022-06-21] MEDS: PREGABALIN 50 MG CAP PO SCH ×2 (08:40→20:19)
[2022-06-21] MEDS ORDERED: POTASSIUM CHLORIDE CRTAB 20 MEQ TABCR PO STA (09:09)
[2022-06-21] MEDS: VANCOMYCIN HCL 1,250 MG in SODIUM CHLORIDE 0.9% 250 ML IV SCH ×2 (09:53→22:45)
[2022-06-21 10:57] LABS: Hematocrit (blood only) 24.6 % (34.1-44.9); Hemoglobin 7.3 g/dl (12.0-16.0)
[2022-06-21] MEDS: oxyCODONE HCL IR 5 MG TAB (IMMEDIATE RELEASE) PO PRN (13:27)
--- NOTE | 2022-06-21 13:52 | Hospitalist Progress Note ---
Date of Service June 21, 2022 Assessment & Plan (1) Necrotizing fasciitis: Plan: per Dr. Seth's notes with addendum: Presented to the [facility] with them abrasion and abscess of the right buttock and seen by surgery service while in [facility] Noted to have sepsis with bacteremia and was treated appropriately with infectious disease help from [place] Has had repeat CT scan on 06 June and noted to have necrotizing fasciitis and was transferred to [place] for surgical intervention Has had I & D in [place] with improvement of her necrotizing fasciitis Has been on oral antibiotic and will continue accordingly Complains today of pain but no fever and or chills and no increase in white count Has had fever last night up to 39.3-blood cultures were taken and she has been started with intravenous vancomycin and Zosyn on 06/18/2022 No more fever since morning of 06/19/2022 Continue intravenous vancomycin and Zosyn for now and oral Cipro and clindamycin have been on hold 06/21/22 no fever today no leukocytosis BC: pending continue Vanco + Zosyn IV (2) Abscess of buttock, right: Plan: As above Still has the gauze packing in wound of the right buttock New wound over left buttock as well 06/21/22 awaiting further recommendations by Gen Surg continue daily wound care (3) Acute blood loss anemia: Plan: Hg 6.8- 7.3 likely from wound drainage, blood draws no other active bleeding noted 1 unit PRBC ordered (4) Overdose of trazodone: Plan: Initial admission to [facility] on 05/22/2022 with trazodone overdose and suicidal ideation Psychiatric evaluation was done and the patient was cleared to continue antidepressant as prescribed No more suicidal ideation We will continue current medications for depression and anxiety No issues with suicidal ideation and or overdose 06/21 mood stable continue current medications (5) Depression: Plan: Has depression/anxiety Medications has been adjusted (6) Diabetes mellitus, type II: Plan: Continue with current medications We will hold up any metformin BSG 125 - 181 (7) Hypertension: Plan: BP 140s continue to monitor continue Lisinopril (8) Dyslipidemia: Plan: Continue statin (9) Hypothyroidism: Plan: Continue supplement (10) Sleep apnea: Plan: Continue to use CPAP at nighttime Plan DVT prophylaxis Subcu Lovenox CODE STATUS Full Admission and Anticipated Discharge Date Admission Date: June 18, 2022 Subjective ff up for r buttock wound with recent necrotizing fasciitis, etc seen resting in bed, comfortable not in distress has mild discomfort on the R buttock area denies melena, hematochezia, hematuria, etc no chest pain, dyspnea, palpitations, dizziness no other symptoms RN changing wound packing 2x a day, with serosanguinous drainage Review of Systems Review of Systems: all noted and negative except for above Physical Exam Physical Exam: General- oriented x 3, not in distress, speaks in sentences with no effort or accessory muscle use Head- atraumatic Eyes- PERRL, EOMI, anicteric ENT- oropharynx clear Neck- supple, no JVD, no adenopathy, no thyromegaly; carotids +2/2, no bruits appreciated Lungs- clear to auscultation bilaterally, no rales/wheezes Heart- normal rate, regular rhythm; no murmur, no gallop, no rub appreciated Abdomen- normal bowel sounds, nondistended, soft, nontender, no masses or hepatosplenomegaly Extremities- no pretibial edema, no calf tenderness; peripheral pulses intact R buttock- wound with packing in place, no active bleeding or drainage, mild surrounding erythema, no tenderness Neuro- alert, oriented x 3; CN 2-12 grossly intact; motor 5/5 bilaterally;sensation 100% on all extremities; no other gross focal neurologic deficits Skin- warm & dry Results & Data Results & Data ([facility]) Vital Signs (Past 12 Hours) Vital Signs Temp Pulse Resp BP Pulse Ox O2 Del Method 06/21/22 07:28 37.0 C 87 22 142/78 H 97 Room Air all noted and reviewed including below
[2022-06-21] MEDS ORDERED: SODIUM CHLORIDE 0.9% 250 ML IV PRN (14:13)
--- NOTE | 2022-06-21 15:55 | Surgery Progress Note ---
Date of Service June 21, 2022 Assessment & Plan (1) Buttock wound: Plan: pt is a 76 year-old female who is S/P I/D right buttock abscess, IMP: S/P I/D right buttock abscess, stable, pt feels better, continue IV antibiotic, correct low K, OOB wound care nurse consult for wound dressing change, repeat labs in morning, will F/U, 06/21/2022 3:52PM pt is a 76 year-old female who is S/P I/D right buttock abscess, IMP: S/P I/D right buttock abscess, stable, pt feels better, continue IV antibiotic, pre- ID OOB no surgery indication now, continue dressing change, once a day pt will F/U [facility] wound care center once pt is discharged, sign off today, please call with questions, Admission and Anticipated Discharge Date Admission Date: June 18, 2022 Supervising Physician Co-Signing Physician Notes Dr. Sanchezase see Kelley Gage's note. Patient transferred from [facility] yesterday after undergoing incision and drainage of a right gluteal deep abscess and necrotizing fasciitis She apparently is to have further antibiotics and then be transferred to rehab She had a fever last night I did examine her wound and was able to explore it with my digit several centimeters with serous fluid no purulence no deep purulent cavity-the main cavity is 4 to 5 cm deep We placed a gauze pad I will discuss the case with Dr. Amador-who is operated on her in the past It may be that she requires additional imaging and possible transfer back to [place] Subjective ff up for r buttock wound with recent necrotizing fasciitis, etc seen resting in bed, comfortable not in distress has mild discomfort on the R buttock area denies melena, hematochezia, hematuria, etc no chest pain, dyspnea, palpitations, dizziness no other symptoms RN changing wound packing 2x a day, with serosanguinous drainage 06/21/2022 3:[address] Amador pt feels better, no pain on wound site, minimal drainage on wound, no fever, normal WBC, Physical Exam Constitutional: WD/WN, vitals as above Eyes: PERRL, conjunctivae normal, anicteric sclerae Neck: trachea midline, no thyromegaly Respiratory: normal respiratory effort, lungs clear to auscultation Cardiovascular: RRR, no murmur, no edema Gastrointestinal (Abdomen): normal bowel sounds, soft, nontender, no hepatosplenomegaly Skin: the wound is packing with hauze, no redness, Neurologic: patellar DTR's 2+ bilat, sensation intact Psychiatric: A+Ox3, euthymic affect Results & Data ([facility]) Vital Signs (Past 12 Hours) Vital Signs Temp Pulse Pulse Resp BP BP Pulse Ox 06/21/22 15:47 36.7 C 92 H 16 153/80 H 06/21/22 15:14 36.8 C 80 22 133/78 96 06/21/22 07:28 37.0 C 87 22 142/78 H 97 O2 Del Method 06/21/22 15:47 06/21/22 15:14 Room Air 06/21/22 07:28 Room Air Laboratory Results Abnormal lab results 06/20/22 06/20/22 06/21/22 Range/Units 17:10 20:19 06:12 RBC 2.78 L (3.93-5.22) M/uL Hgb 6.9 L* (12.0-16.0) g/dl Hct 22.8 L (34.1-44.9) % MCH 24.8 L (25.0-34.0) pg MCHC 30.3 L (32.0-36.0) g/dL RDW Std Deviation 54.1 H (36.4-46.3) fL RDW Coeff of Zeynep 18.2 H (11.5-14.5) % Immature Gran # (Auto) 0.07 H (0.00-0.02) K/uL Potassium (3.5-5.1) mmol/L Glucose (70-99(Fasting)) mg/dl POC Glucose 159 H 176 H (70-99) mg/dl Calcium (8.5-10.1) mg/dl Crossmatch 06/21/22 06/21/22 06/21/22 Range/Units 06:12 08:15 10:38 RBC (3.93-5.22) M/uL Hgb 7.3 L (12.0-16.0) g/dl Hct 24.6 L (34.1-44.9) % MCH (25.0-34.0) pg MCHC (32.0-36.0) g/dL RDW Std Deviation (36.4-46.3) fL RDW Coeff of Zeynep (11.5-14.5) % Immature Gran # (Auto) (0.00-0.02) K/uL Potassium 3.4 L (3.5-5.1) mmol/L Glucose 116 H (70-99(Fasting)) mg/dl POC Glucose 125 H (70-99) mg/dl Calcium 8.0 L (8.5-10.1) mg/dl Crossmatch 06/21/22 06/21/22 Range/Units 12:08 14:25 RBC (3.93-5.22) M/uL Hgb (12.0-16.0) g/dl Hct (34.1-44.9) % MCH (25.0-34.0) pg MCHC (32.0-36.0) g/dL RDW Std Deviation (36.4-46.3) fL RDW Coeff of Zeynep (11.5-14.5) % Immature Gran # (Auto) (0.00-0.02) K/uL Potassium (3.5-5.1) mmol/L Glucose (70-99(Fasting)) mg/dl POC Glucose 181 H (70-99) mg/dl Calcium (8.5-10.1) mg/dl Crossmatch See Detail
[2022-06-21] MEDS: lamoTRIgine 100 MG TAB PO SCH (20:11)
[2022-06-21] MEDS: MONTELUKAST SODIUM 10 MG TABLET PO SCH (20:13)
[2022-06-21] MEDS: TOCOPHERYL, DL-ALPHA 400 UNITS 180 MG CAP PO SCH (20:13)
[2022-06-21] MEDS: traZODone HCL 50 MG TAB PO SCH (20:19)
[2022-06-22] MEDS: PIPERACILLIN/TAZOBACTAM 4.5 GM in DEXTROSE 5% 100 ML IV SCH ×3 (03:16→18:00)
[2022-06-22] MEDS: LEVOTHYROXINE SODIUM 100 MCG TABLET PO SCH (05:11)
[2022-06-22] MEDS: PANTOprazole 40 MG TAB PO SCH (05:11)
[2022-06-22] MEDS: FLUTICASONE PROPIONATE NA SPR 16 GM BTL SCH (08:44)
[2022-06-22] MEDS: FLUTICASONE/VILANTEROL 200/25MCG 14 PUFFS/INHALER INH SCH (08:44)
[2022-06-22] MEDS: PREGABALIN 50 MG CAP PO SCH ×2 (08:44→21:28)
[2022-06-22] MEDS: DULoxetine HCL 60 MG CAP PO SCH (08:45)
[2022-06-22] MEDS: buPROPion SR 100 MG TABCR PO SCH ×2 (08:45→21:23)
[2022-06-22] MEDS: CYANOCOBALAMIN (B-12) 500 MCG TABLET PO SCH (08:45)
[2022-06-22] MEDS: ENOXAPARIN INJ 40 MG/0.4 ML SYR SQ SCH (08:45)
[2022-06-22] MEDS: lisinopril 40 MG TAB PO SCH (08:45)
[2022-06-22] MEDS: MEMANTINE HCL 5 MG TAB PO SCH ×2 (08:45→21:25)
[2022-06-22] MEDS: MAGNESIUM OXIDE 400 MG TAB PO SCH (08:45)
[2022-06-22] MEDS: CALCIUM 600MG + VIT D 400 IU TAB PO SCH ×2 (08:45→21:25)
[2022-06-22] MEDS: DONEPEZIL HCL 10 MG TAB PO SCH (08:46)
[2022-06-22] MEDS: FAMOTIDINE 40 MG TABLET PO SCH ×2 (08:46→21:25)
[2022-06-22] MEDS: ADVANCED PROBIOTIC 1250 MG CAPSULE PO SCH (08:46)
[2022-06-22] MEDS: OMEGA-3 (PURIFIED FISH OIL) 1 GM CAP PO SCH (08:46)
[2022-06-22] MEDS: ASPIRIN 81 MG ECTAB PO SCH (08:46)
[2022-06-22] MEDS: EZETIMIBE/SIMVASTATIN 10/20 TAB PO SCH (08:46)
[2022-06-22] MEDS: busPIRone 5 MG TAB PO SCH ×2 (08:46→21:23)
[2022-06-22] MEDS: FOLIC ACID 400 MCG TAB PO SCH (08:46)
[2022-06-22] MEDS: INSULIN ASPART PER UNIT SC SCH ×4 (08:47→21:21)
[2022-06-22 09:56] LABS: Basophils # (auto) 0.03 K/uL (0-0.2); Basophils % (auto) 0.5 %; Eosinophils # (auto) 0.26 K/uL (0-0.50); Eosinophils % (auto) 4.2 %; Hemoglobin 8.9 g/dl (12.0-16.0); Immature Granulocytes # (auto) 0.08 K/uL (0.00-0.02); Immature Granulocytes % (auto) 1.3 %; Lymphocytes # (auto) 1.64 K/uL (1.2-3.4); Lymphocytes % (auto) 26.4 %; Mean Corpuscular Hemoglobin 25.6 pg (25.0-34.0); Mean Corpuscular Hgb Conc 30.7 g/dL (32.0-36.0); Mean Corpuscular Volume 83.3 fL (80.0-100.0); Mean Platelet Volume 9.8 fL (9.4-12.3); Monocytes # (auto) 0.58 K/uL (0.24-0.82); Monocytes % (auto) 9.3 %; Neutrophils # (auto) 3.63 K/uL (1.4-6.5); Neutrophils % (auto) 58.3 %; Platelet Count 191 K/uL (130-400); RDW Coefficient of Variation 17.7 % (11.5-14.5); RDW Standard Deviation 54.2 fL (36.4-46.3); Red Blood Count 3.48 M/uL (3.93-5.22); White Blood Count 6.22 K/ul (4.8-10.8)
[2022-06-22] MEDS: oxyCODONE HCL IR 5 MG TAB (IMMEDIATE RELEASE) PO PRN ×2 (10:14→17:59)
--- NOTE | 2022-06-22 10:15 | Pharmacy Report ---
Pharmacy Vanc AUC Short Note - Date of Service June 22, 2022 - Assessment & Plan Assessment 76 year old F was receiving Vancomycin 1250 mg IV q12h for treatment of R buttock abscess. She has history of positive MRSA culture from the same site. Day #4 of antimicrobial therapy. Laboratory Tests 06/22/22 06:15 Random Vancomycin 28.5 H* Plan Vancomycin * AUC/DINORA is the preferred PK/PD target for vancomycin * AUC guided dosing is effective and associated with decreased risk of nephrotoxicity compared to traditional trough targets * A random Vancomycin level drawn this AM before dose today at 10:00 am was 28.5 mcg/ml which is above the goal of around 15 mcg/ml for skin infection. This is predicted to achieve steady-state AUC of around 863 mg/L.hr which is above the target of 400-600 mg/L.hr. * Vancomycin put on hold this AM. * Random Vancomycin level re-ordered for this evening. If level is within goal, plan to resume Vancomycin therapy at a lower dose. * High Vanco level indicates drug accumulation in this patient with BMI of 35.9 kg/m2. Close monitoring needed. Pharmacy will continue to follow and will adjust dose/frequency as necessary. Thank you.
[2022-06-22 10:28] LABS: BUN Creatinine Ratio 10.6 (10-20); Calcium 8.8 mg/dl (8.5-10.1); Creatinine Clr Calc Pharmacy 40.3 ml/min; Est GFR (African American) 45.9 ml/min; Est GFR (Non-African American) 39.6 ml/min; Potassium 3.9 mmol/L (3.5-5.1)
--- NOTE | 2022-06-22 14:26 | Hospitalist Progress Note ---
Date of Service June 22, 2022 Assessment & Plan (1) Buttock wound: Plan: (1) Necrotizing fasciitis: Plan: per Dr. Seth's notes with addendum: Presented to the [facility] [place] [facility] with them abrasion and abscess of the right buttock and seen by surgery service while in [facility] Noted to have sepsis with bacteremia and was treated appropriately with infectious disease help from [place] Has had repeat CT scan on 06 June and noted to have necrotizing fasciitis and was transferred to [place] for surgical intervention Has had I & D in [place] with improvement of her necrotizing fasciitis Has been on oral antibiotic and will continue accordingly Complains today of pain but no fever and or chills and no increase in white count Has had fever last night up to 39.3-blood cultures were taken and she has been started with intravenous vancomycin and Zosyn on 06/18/2022 No more fever since morning of 06/19/2022 Continue intravenous vancomycin and Zosyn for now and oral Cipro and clindamycin have been on hold 06/22 afebrile x 2 days no leukocytosis BC: negative so far crea increased change Vanco to Dapto continue Zosyn IV (2) Abscess of buttock, right: Plan: As above Still has the gauze packing in wound of the right buttock New wound over left buttock as well 06/22 surgery not indicated as per Gen Surg continue IV abx continue daily wound care (3) Acute blood loss anemia: Plan: Hg 6.8- 7.3 likely from wound drainage, blood draws no other active bleeding noted 1 unit PRBC ordered Hg now 8.9 (4) Overdose of trazodone: Plan: Initial admission to [facility] on 05/22/2022 with trazodone overdose and suicidal ideation Psychiatric evaluation was done and the patient was cleared to continue antidepressant as prescribed No more suicidal ideation We will continue current medications for depression and anxiety No issues with suicidal ideation and or overdose 06/22 mood stable continue current medications (5) Depression: Plan: Has depression/anxiety Medications has been adjusted (6) Diabetes mellitus, type II: Plan: Continue with current medications (7) Hypertension: Plan: BP 130s continue to monitor continue Lisinopril (8) Dyslipidemia: Plan: Continue statin (9) Hypothyroidism: Plan: Continue supplement (10) Sleep apnea: Plan: Continue to use CPAP at nighttime Plan DVT prophylaxis Subcu Lovenox CODE STATUS Full Admission and Anticipated Discharge Date Admission Date: June 18, 2022 Subjective ff up for buttock wound infection, etc seen resting in bed, comfortable sitting up at the edge of the bed states she feels ok overall has some r buttock discomfort no chest pain, dyspnea, palpitations, dizziness reports that her orthostatic tremor seems to be involving her neck and head today no other symptoms Review of Systems Review of Systems: all noted and negative except for above Physical Exam Physical Exam: General- oriented x 3, not in distress, speaks in sentences with no effort or accessory muscle use Eyes- anicteric Neck- no JVD Lungs- clear BS bilaterally, no rales/wheezes Heart- normal rate, regular rhythm; no murmurs Abdomen- normal BS, nondistended, soft, nontender Extremities- no pretibial edema, no calf tenderness R buttock wound- dressing and packing in place: no active bleeding or discharge noted mild surrounding erythema, no tenderness/warmth Neuro- alert, oriented x 3; no gross focal neurologic deficits Skin- warm & dry Results & Data Results & Data ([facility]) Vital Signs (Past 12 Hours) Vital Signs Temp Pulse Resp BP Pulse Ox O2 Del Method 06/22/22 08:01 36.7 C 84 16 135/79 95 Room Air all noted and reviewed including below
[2022-06-22] MEDS: lamoTRIgine 100 MG TAB PO SCH (21:23)
[2022-06-22] MEDS: MONTELUKAST SODIUM 10 MG TABLET PO SCH (21:24)
[2022-06-22] MEDS: TOCOPHERYL, DL-ALPHA 400 UNITS 180 MG CAP PO SCH (21:24)
[2022-06-22] MEDS: traZODone HCL 50 MG TAB PO SCH (21:28)
[2022-06-23] MEDS: PIPERACILLIN/TAZOBACTAM 4.5 GM in DEXTROSE 5% 100 ML IV SCH ×3 (02:13→18:19)
[2022-06-23] MEDS: PANTOprazole 40 MG TAB PO SCH (05:47)
[2022-06-23] MEDS: LEVOTHYROXINE SODIUM 100 MCG TABLET PO SCH (05:47)
[2022-06-23 06:45] LABS: Basophils # (auto) 0.03 K/uL (0-0.2); Basophils % (auto) 0.6 %; Hemoglobin 8.1 g/dl (12.0-16.0); Immature Granulocytes # (auto) 0.05 K/uL (0.00-0.02); Lymphocytes # (auto) 1.49 K/uL (1.2-3.4); Lymphocytes % (auto) 29.8 %; Mean Corpuscular Hemoglobin 25.4 pg (25.0-34.0); Mean Corpuscular Hgb Conc 31.2 g/dL (32.0-36.0); Mean Corpuscular Volume 81.5 fL (80.0-100.0); Mean Platelet Volume 9.7 fL (9.4-12.3); Monocytes # (auto) 0.65 K/uL (0.24-0.82); Neutrophils # (auto) 2.58 K/uL (1.4-6.5); Neutrophils % (auto) 51.6 %; Platelet Count 191 K/uL (130-400); RDW Coefficient of Variation 17.7 % (11.5-14.5); RDW Standard Deviation 51.3 fL (36.4-46.3); Red Blood Count 3.19 M/uL (3.93-5.22)
[2022-06-23 07:18] LABS: BUN Creatinine Ratio 13.1 (10-20); Calcium 8.8 mg/dl (8.5-10.1); Creatinine Clr Calc Pharmacy 33.2 ml/min; Est GFR (African American) 36.4 ml/min; Est GFR (Non-African American) 31.4 ml/min; Potassium 3.7 mmol/L (3.5-5.1)
[2022-06-23] MEDS: SODIUM CHLORIDE 0.9% 1000ML 1,000 ML IV SCH (08:07)
[2022-06-23] MEDS: FAMOTIDINE 40 MG TABLET PO SCH ×2 (08:13→20:43)
[2022-06-23] MEDS: MEMANTINE HCL 5 MG TAB PO SCH ×2 (08:14→20:39)
[2022-06-23] MEDS: buPROPion SR 100 MG TABCR PO SCH ×2 (08:14→20:38)
[2022-06-23] MEDS: CALCIUM 600MG + VIT D 400 IU TAB PO SCH ×2 (08:14→20:43)
[2022-06-23] MEDS: busPIRone 5 MG TAB PO SCH ×2 (08:15→20:38)
[2022-06-23] MEDS: DULoxetine HCL 60 MG CAP PO SCH (08:15)
[2022-06-23] MEDS: EZETIMIBE/SIMVASTATIN 10/20 TAB PO SCH (08:15)
[2022-06-23] MEDS: ASPIRIN 81 MG ECTAB PO SCH (08:15)
[2022-06-23] MEDS: OMEGA-3 (PURIFIED FISH OIL) 1 GM CAP PO SCH (08:16)
[2022-06-23] MEDS: MAGNESIUM OXIDE 400 MG TAB PO SCH (08:16)
[2022-06-23] MEDS: FOLIC ACID 400 MCG TAB PO SCH (08:17)
[2022-06-23] MEDS: DONEPEZIL HCL 10 MG TAB PO SCH (08:17)
[2022-06-23] MEDS: CYANOCOBALAMIN (B-12) 500 MCG TABLET PO SCH (08:18)
[2022-06-23] MEDS: ADVANCED PROBIOTIC 1250 MG CAPSULE PO SCH (08:18)
[2022-06-23] MEDS: ENOXAPARIN INJ 40 MG/0.4 ML SYR SQ SCH (08:19)
[2022-06-23] MEDS: FLUTICASONE/VILANTEROL 200/25MCG 14 PUFFS/INHALER INH SCH (08:19)
[2022-06-23] MEDS: FLUTICASONE PROPIONATE NA SPR 16 GM BTL SCH (08:19)
[2022-06-23] MEDS: PREGABALIN 50 MG CAP PO SCH ×2 (08:29→20:46)
[2022-06-23] MEDS: DAPTOmycin 275 MG in SYRINGE 0 ML IV SCH (08:30)
[2022-06-23] MEDS: INSULIN ASPART PER UNIT SC SCH ×4 (09:19→20:51)
--- NOTE | 2022-06-23 10:15 | CT Scan Report ---
CT SCAN OF THE ABDOMEN AND PELVIS WITHOUT IV CONTRAST CLINICAL HISTORY: Follow-up of buttock abscess. COMPARISON STUDY: Abdominal CT dated 06/06/2022. TECHNIQUE: CT scan of the abdomen and pelvis is performed from the lung bases to the proximal femora. Images are reviewed in the axial, sagittal, and coronal planes. IV contrast was not administered for this examination. Note that the examination was performed in suboptimal fashion without IV contrast. There is also extensive streak artifact from extensive metallic spinal hardware. A dose lowering chivo hnique was utilized adhering to the principles of ALARA. CT DOSE: 1134.72 mGy.cm FINDINGS: Lung bases: The heart is normal in size no acute infiltrates pericardial effusion. There are coronary artery calcifications. There are small pleural effusions, right larger than left with dependent atel ectasis. Liver: The unenhanced liver is normal in size, contour, and attenuation. There is no intrahepatic kishan iary ductal dilatation. Gallbladder: Surgically absent. Spleen: Normal in size and attenuation. Pancreas: The unenhanced pancreas is moderately atrophic and grossly unremarkable. Adrenal glands: Unremarkable. Kidneys: The unenhanced kidneys demonstrate mild cortical atrophy and are without hydronephrosis. The re are no renal calculi identified. There is no evidence of contour deforming renal mass lesion. Abdominal vasculature: The abdominal aorta is normal in course and caliber noting mild atheroscleroti c calcification. Bowel: There is [id number] colonic diverticulosis without CT evidence of acute diverticulitis. No bowel obstruction is seen. Mild fecal retention is noted throughout the colon. Duodenal diverticul a are incidentally noted. The appendix is well-visualized and normal. Peritoneum: There is no intraperitoneal free air or abdominal ascites. There is a fat-containing umbi lical hernia. Lymphadenopathy: None. Pelvic viscera: The bladder is normal as visualized. The uterus is surgically absent. No adnexal lesi on is seen. There is a wound in the right buttock with soft tissue gas and subcutaneous fluid. This h as significantly improved as compared to 06/06/2022. No discrete/organized fluid collection is clear i dentified on this unenhanced examination. Pockets of fluid in the right gluteus blake have resolved as compared to 06/06/2022. Skeletal structures: The skeletal structures are osteopenic. Extensive postoperative change is seen t hroughout the thoracolumbar spine with spinal rods and iliac bones in place. There is a mild superior end plate compression deformity of T11. No lytic or blastic lesions are seen. IMPRESSION: 1. Significantly suboptimal examination without IV contrast. 2. Again seen is a wound with soft tissue gas, inflammatory change, and subcutaneous fluid in the rig ht buttock overlying the gluteus blake muscle. This has improved as compared 06/06/2022. 3. No discrete/organized fluid collection is seen on this unenhanced examination. 4. Pockets of fluid in the right gluteus blake muscle have resolved as compared 06/06/2022 5. Small pleural effusions. 6. Colonic diverticulosis without CT evidence of acute diverticulitis. 7. Additional findings as above. ACT 112: Negative or not required by law. Electronically signed by: James Staley M.D. 06/23/2022 10:14 AM
--- NOTE | 2022-06-23 12:14 | Consultation Report ---
REPORT TITLE: Nephrology Consultation Note. REASON FOR CONSULTATION: Acute renal failure. HISTORY OF PRESENT ILLNESS: The patient is a 76-year-old female with longstanding type 2 diabetes as well as CKD stage III, who has been in the hospital for 5 weeks now. She was initially admitted to [facility] because of necrotizing fasciitis involving the right buttock. She was t hen transferred to [facility] on 06/07/2022 where she had surgical interventio n for the necrotizing fasciitis. She was subsequently discharged back to [facility] for further continuation of care and placement. She has been on multiple antibiotics for her bacte remia. She had both pseudomonas as well as Staphylococcus aureus. She was on IV vancomycin up until yesterday and was stopped after the creatinine started to rise. She is currently on daptomycin and Zosyn. Just a few days ago, she had a completely normal creatinine of 0.63, then went up to 1.1, the n 1.32, and this morning is 1.60 after which nephrology has been consulted. She made 3900 mL of urin e yesterday. As per the patient, her legs have been more swollen than usual for the last few days. She is not in any shortness of breath. Her vital signs are reasonable. For the last 4 days that she has been in [facility], I did not see any period of hypotension or major hemodynamic ins tability. Prior to hospitalization, she was on Celebrex, but she has been in the hospital now for mo re than 5 weeks. No recent contrast exposure. No NSAIDs. No urinary complaints. She also had admi ssion on 05/22/2022 with overdose of trazodone and suicidal ideation. ALLERGIES: List reviewed and is as per the reconciliation list. MEDICATIONS: Home medication list was also reviewed in detail and is as per the H and P and the marizol nciliation list. Inpatient medication was reviewed in chronological order. PAST MEDICAL AND SURGICAL HISTORY: History of acute hyponatremia, history of VJ, anemia, anxiety, a sthma, mood disorder, depression with suicidal ideation, type 2 diabetes for 20 plus years, fibromyal tracey, history of GERD, hyperlipidemia, hypertension, history of kidney stone, history of vascular sujit ntia diagnosed 10 plus years ago, peripheral neuropathy, history of sleep apnea, on BiPAP, spinal norbert nosis, ventral hernia, spinal fusion surgery, foot surgery, recent I and D, bladder surgery, hysterec zoie, cataract surgery, , cholecystectomy, shoulder surgery, perianal fistula surgery, tonsi llectomy, adenoidectomy, right total knee replacement, left total knee replacement, vaginal hysterect horacio. FAMILY HISTORY: Negative for renal disease or dialysis. However, she does have strong family histor y of diabetes. SOCIAL HISTORY: Never smoked. She is and lives with her spouse in her home. REVIEW OF SYSTEMS: At this point, she is complaining of some swelling in her legs than usual, but ot herwise no complaint. Denies nausea, vomiting, diarrhea, chest pain, shortness of breath, orthopnea, PND, any pain at this point. She is ambulating fairly well. PHYSICAL EXAMINATION: GENERAL: Elderly white female who is not in any overt distress at this time. VITAL SIGNS: Blood pressure 157/82, pulse rate 96, temperature 36.9, 95% on room air. HEENT: Mucous membrane is moist. NECK: Supple. No jugular venous distention. CHEST: Bilaterally clear to auscultation. CARDIOVASCULAR: S1 and S2, regular. ABDOMEN: Soft, nontender. EXTREMITIES: Show trace edema. SKIN: Shows no rash. LABORATORY TESTS: Blood work from this morning shows creatinine of 1.6, BUN 21, sodium 138, potassiu m 3.7, chloride 108, calcium 8.8. Hemoglobin 8.1, WBC count 5000, platelet count 191. She had hemog lobin as low as 6.9 just 2 days ago. IMAGING DATA: CT abdomen and pelvis done earlier today shows the right buttock fluid and inflammator y changes, small pleural effusion, colonic diverticulosis, but without diverticulitis. Kidneys show m ild cortical atrophy, but no hydronephrosis and no kidney stone. ASSESSMENT AND PLAN: A 76-year-old female with longstanding type 2 diabetes and chronic kidney disea se stage IIIA, who has been admitted in the hospital for more than 5 weeks now because of right glute al abscess/necrotizing fasciitis, status post incision and drainage and prolonged course of antibioti cs. I have been consulted for acute renal failure. Acute renal failure: Three days ago, she had a completely normal creatinine of 0.63, and since then has gone up slightly to 1.6. She is making lots of urine. In fact, she had more than 3000 mL of uri ne yesterday. She has longstanding history of diabetes as well as vascular disease, which means her renal course can always be tricky and susceptible to acute renal failure. Given that she has had pro longed hospitalization course with bacteremia, prolonged antibiotic course, it is not unreasonable to have some acute renal failure. It is quite possible that the rise in creatinine we are seeing for t he last two days is a result of combined use of vancomycin with Zosyn. The combination has been show n to be associated with slightly higher acute renal failure incidence than when used alone. I agree with stopping IV vancomycin and switching over to daptomycin. Continue to hold lisinopril. I will c ut down the IV fluid to 50 mL per hour. I do not think the patient is volume depleted. If anything, I believe she might be slightly volume overloaded. She also feels her leg is more swollen and she f eels somewhat abdominal bloating. Once the creatinine stabilizes and/or starts going down, we can st op the fluid. We may even have to give Lasix in the coming days. No further workup is needed for th e acute renal failure as very likely it will stabilize and get better in the coming days. Continue d aily labs. Continue input/output charting. Thank you very much for the consult. Job ID: [id number]
[2022-06-23 13:07] LABS: Appearance Urine Clear (Clear); Bilirubin Urine Negative (Negative); Blood Urine Negative (Negative); Color Urine Yellow; Glucose Urine UA Negative (Negative); Ketones Urine Negative (Negative); Leukocyte Esterase Urine Negative (Negative); Nitrite Urine Negative (Negative); Protein Urine Negative (Negative); Specific Gravity Urine 1.008 (1.000-1.030); Urobilinogen Urine Negative (Negative); pH Urine 5.5 (4.5-7.5)
--- NOTE | 2022-06-23 14:39 | Ultrasound Report ---
US venous doppler LE BI CLINICAL HISTORY: leg edema, r/o dvt TECHNIQUE: Bilateral lower extremity real-time compression venous ultrasound with Color Doppler imagi ng. Utilizing real-time ultrasonic imaging multiple real time high-resolution ultrasonic images with compression and noncompression maneuvers of the deep venous system in addition to color doppler imagi ng were performed from the common femoral vein through the proximal calf veins. COMPARISON: None available at the time of this dictation. FINDINGS: Currently there is normal compressibility of the deep venous system from the common femoral vein thro ugh the proximal calf veins. Soft tissue edema is noted in the bilateral lower extremities. Impression: No evidence of deep venous thrombus. ACT 112: Negative or not required by law. Electronically signed by: Edison Berry M.D. 06/23/2022 2:37 PM
--- NOTE | 2022-06-23 17:50 | Hospitalist Progress Note ---
Date of Service June 23, 2022 Assessment & Plan (1) Buttock wound: Plan: (1) Necrotizing fasciitis: With polymicrobial bacteremia-MRSA, Pseudomonas Plan: per Dr. Seth's notes with addendum: [facility] [facility] [place] them abrasion and abscess of the right buttock and seen by surgery service while in [facility] Noted to have sepsis with bacteremia and was treated appropriately with infectious disease help from [place] Has had repeat CT scan on 06 June and noted to have necrotizing fasciitis and was transferred to [place] for surgical intervention Has had I & D in [place] with improvement of her necrotizing fasciitis Has been on oral antibiotic and will continue accordingly Complains today of pain but no fever and or chills and no increase in white count Has had fever last night up to 39.3-blood cultures were taken and she has been started with intravenous vancomycin and Zosyn on 06/18/2022 No more fever since morning of 06/19/2022 Continue intravenous vancomycin and Zosyn for now and oral Cipro and clindamycin have been on hold 06/23 afebrile x 2 days no leukocytosis BC: negative so far Repeat CT: 2. Again seen is a wound with soft tissue gas, inflammatory change, and subcutaneous fluid in the right buttock overlying the gluteus blake muscle. This has improved as compared 06/06/2022. 3. No discrete/organized fluid collection is seen on this unenhanced examination. 4. Pockets of fluid in the right gluteus blake muscle have resolved as compared 06/06/[address] with general surgery Dr. Amador, does not recommend surgery at this point Continue daptomycin plus Zosyn ID also informed of general surgery's plan (2) Abscess of buttock, right: Plan: As above Still has the gauze packing in wound of the right buttock New wound over left buttock as well 06/23 surgery not indicated as per Gen Surg continue IV abx continue daily wound care (3) Acute blood loss anemia: Plan: Hg 6.8- 7.3 likely from wound drainage, blood draws no other active bleeding noted 1 unit PRBC ordered Hg now 8.1 (4) Overdose of trazodone: Plan: Initial admission to [facility] on 05/22/2022 with trazodone overdose and suicidal ideation Psychiatric evaluation was done and the patient was cleared to continue antidepressant as prescribed No more suicidal ideation We will continue current medications for depression and anxiety No issues with suicidal ideation and or overdose 06/23 mood stable continue current medications Acute kidney injury Likely secondary to underlying infection, IV antibiotic Creatinine increased to 1.6 Cupola Tapper Helper consulted Gentle IV fluids Monitor closely Bilateral lower extremity edema Doppler ultrasound negative (5) Depression: Plan: Has depression/anxiety Medications has been adjusted (6) Diabetes mellitus, type II: Plan: Continue with current medications (7) Hypertension: Plan: Hold lisinopril in light of acute kidney injury (8) Dyslipidemia: Plan: Continue statin (9) Hypothyroidism: Plan: Continue supplement (10) Sleep apnea: Plan: Continue to use CPAP at nighttime Plan DVT prophylaxis Subcu Lovenox CODE STATUS Full Admission and Anticipated Discharge Date Admission Date: June 18, 2022 Subjective Follow-up for right buttock wound infection, etc. Seen resting in bedside chair, comfortable, not in distress States she continues to feel improved overall Right buttock pain improving Overall strength improving No abdominal pain, nausea vomiting no chest pain, dyspnea, palpitations, dizziness No other symptoms Review of Systems Review of Systems: all noted and negative except for above Physical Exam Physical Exam: General- oriented x 3, not in distress, speaks in sentences with no effort or accessory muscle use Eyes- anicteric Neck- no JVD Lungs- clear BS bilaterally Heart- normal rate, regular rhythm; no murmurs Abdomen- normal bowel sounds, nondistended, soft, nontender Extremities- no pretibial edema, no calf tenderness Right buttock-wound with packing in place, no active drainage or bleeding Minimal surrounding erythema, mild tenderness, no warmth Neuro- alert, oriented x 3; no gross focal neurologic deficits Skin- warm & dry Results & Data Results & Data ([facility]) Vital Signs (Past 12 Hours) Vital Signs Temp Pulse Resp BP BP Pulse Ox O2 Del Method 06/23/22 13:49 36.7 C 93 H 16 148/83 H 98 Room Air 06/23/22 08:07 96 H 157/82 H 06/23/22 07:15 36.9 C 84 16 153/87 H 95 Room Air all noted and reviewed including below
[2022-06-23] MEDS: lamoTRIgine 100 MG TAB PO SCH (20:39)
[2022-06-23] MEDS: MONTELUKAST SODIUM 10 MG TABLET PO SCH (20:39)
[2022-06-23] MEDS: TOCOPHERYL, DL-ALPHA 400 UNITS 180 MG CAP PO SCH (20:39)
[2022-06-23] MEDS: traZODone HCL 50 MG TAB PO SCH (20:47)
[2022-06-24] MEDS: SODIUM CHLORIDE 0.9% 1000ML 1,000 ML IV SCH (00:56)
[2022-06-24] MEDS: PIPERACILLIN/TAZOBACTAM 4.5 GM in DEXTROSE 5% 100 ML IV SCH ×3 (01:58→17:58)
[2022-06-24] MEDS: LEVOTHYROXINE SODIUM 100 MCG TABLET PO SCH (05:56)
[2022-06-24] MEDS: PANTOprazole 40 MG TAB PO SCH (05:56)
[2022-06-24] MEDS: MAGNESIUM OXIDE 400 MG TAB PO SCH (08:14)
[2022-06-24] MEDS: FAMOTIDINE 40 MG TABLET PO SCH ×2 (08:14→21:21)
[2022-06-24] MEDS: buPROPion SR 100 MG TABCR PO SCH ×2 (08:14→21:21)
[2022-06-24] MEDS: CYANOCOBALAMIN (B-12) 500 MCG TABLET PO SCH (08:14)
[2022-06-24] MEDS: CALCIUM 600MG + VIT D 400 IU TAB PO SCH ×2 (08:15→21:31)
[2022-06-24] MEDS: ASPIRIN 81 MG ECTAB PO SCH (08:15)
[2022-06-24] MEDS: ADVANCED PROBIOTIC 1250 MG CAPSULE PO SCH (08:15)
[2022-06-24] MEDS: busPIRone 5 MG TAB PO SCH ×2 (08:16→21:23)
[2022-06-24] MEDS: DONEPEZIL HCL 10 MG TAB PO SCH (08:16)
[2022-06-24] MEDS: MEMANTINE HCL 5 MG TAB PO SCH ×2 (08:16→21:22)
[2022-06-24] MEDS: FOLIC ACID 400 MCG TAB PO SCH (08:17)
[2022-06-24] MEDS: EZETIMIBE/SIMVASTATIN 10/20 TAB PO SCH (08:17)
[2022-06-24] MEDS: DULoxetine HCL 60 MG CAP PO SCH (08:17)
[2022-06-24] MEDS: FLUTICASONE/VILANTEROL 200/25MCG 14 PUFFS/INHALER INH SCH (08:18)
[2022-06-24] MEDS: OMEGA-3 (PURIFIED FISH OIL) 1 GM CAP PO SCH (08:18)
[2022-06-24] MEDS: FLUTICASONE PROPIONATE NA SPR 16 GM BTL SCH (08:18)
[2022-06-24] MEDS: ENOXAPARIN INJ 40 MG/0.4 ML SYR SQ SCH (08:19)
[2022-06-24] MEDS: ACETAMINOPHEN 500 MG TAB PO PRN (08:25)
[2022-06-24] MEDS: DAPTOmycin 275 MG in SYRINGE 0 ML IV SCH (08:26)
[2022-06-24] MEDS: PREGABALIN 50 MG CAP PO SCH ×2 (08:26→21:32)
[2022-06-24 08:42] LABS: Basophils # (auto) 0.03 K/uL (0-0.2); Basophils % (auto) 0.5 %; Eosinophils # (auto) 0.17 K/uL (0-0.50); Hematocrit (blood only) 28.2 % (34.1-44.9); Hemoglobin 8.8 g/dl (12.0-16.0); Immature Granulocytes # (auto) 0.07 K/uL (0.00-0.02); Immature Granulocytes % (auto) 1.2 %; Lymphocytes # (auto) 1.28 K/uL (1.2-3.4); Lymphocytes % (auto) 22.6 %; Mean Corpuscular Hemoglobin 25.2 pg (25.0-34.0); Mean Corpuscular Hgb Conc 31.2 g/dL (32.0-36.0); Mean Corpuscular Volume 80.8 fL (80.0-100.0); Mean Platelet Volume 10.3 fL (9.4-12.3); Monocytes # (auto) 0.69 K/uL (0.24-0.82); Monocytes % (auto) 12.2 %; Neutrophils # (auto) 3.43 K/uL (1.4-6.5); Neutrophils % (auto) 60.5 %; Platelet Count 210 K/uL (130-400); RDW Coefficient of Variation 18.1 % (11.5-14.5); RDW Standard Deviation 52.9 fL (36.4-46.3); Red Blood Count 3.49 M/uL (3.93-5.22); White Blood Count 5.67 K/ul (4.8-10.8)
[2022-06-24 09:02] LABS: BUN Creatinine Ratio 12.4 (10-20); Creatinine Clr Calc Pharmacy 36.7 ml/min; Est GFR (Non-African American) 35.4 ml/min; Potassium 3.8 mmol/L (3.5-5.1)
[2022-06-24] MEDS: INSULIN ASPART PER UNIT SC SCH ×4 (09:24→21:47)
[2022-06-24] MEDS: oxyCODONE HCL IR 5 MG TAB (IMMEDIATE RELEASE) PO PRN (10:18)
--- NOTE | 2022-06-24 13:14 | Nephrology Progress Note ---
Date of Service June 24, 2022 Assessment & Plan (1) VJ (acute kidney injury): Plan: 76-year-old female with longstanding type 2 diabetes and chronic kidney disease stage IIIA, who has been admitted in the hospital for more than 5 weeks as of 06/23 because of right gluteal abscess/necrotizing fasciitis, status post incision and drainage and prolonged course of antibiotics. baseline creatinine 0.6 at least inpt, as recently as 06/20. Then abrupt in crease in creatinine to 1.1 on 06/21, and more gradual uptick to peak at 1.6 on 06/23; down to 1.5 today. Acute renal failure with mild volume overload: Three days ago, she had a completely normal creatinine of 0.63, and since then has gone up slightly to 1.6. She is making lots of urine.High/normal UOP rates continue > 3L 06/22, 2.9 on 06/24. She has longstanding diabetes as well as vascular disease, which m eans her renal function will always be susceptible to acute renal failure. Given her prolonged hospitalization with bacteremia, extensive antibiotic course, it is not unreasonable to have some acute renal failure. It is quite possible that the rise in creatinine we are seeing for the last two days is a result of combined use of vancomycin with Zosyn. The combination has been shown to be associated with slightly higher acute renal failure incidence than when used alone. -stop IVF given mild vol OL sx -cont daptomycin in lieu of vancomycin -cont to hold lisinopril >>may need to give diuretic low dose IV if she develops dyspnea - Continue strict input/output charting. Admission and Anticipated Discharge Date Admission Date: June 18, 2022 Subjective no interval events. c/o LONG, a chronic issue for her. watching for results of one tylenol when I saw her. no sob, no n/v, no orthopnea; tolerating po; edema controlled Review of Systems Review of Systems: All systems reviewed & are unremarkable except as noted in Subjective Physical Exam Constitutional: well developed, well nourished and + obese; no acute distress Eyes: EOM intact bilaterally ENMT: Ears: no external ear abnormality Nose: no external nose abnormality Mouth: + dry oral mucous membranes Neck: no nuchal rigidity Respiratory: normal respiratory effort Auscultation: + diminished lung sounds and + crackles (bibasilar and as high as 1/3 up on R; L at base only) Cardiovascular: Rate/Rhythm: regular rate and regular rhythm Heart Sounds: + murmur Extremities: + edema (trace ankle bl) Gastrointestinal (Abdomen): Inspection/Auscultation: normal bowel sounds Percussion/Palpation: abdomen soft; abdomen nontender Musculoskeletal: Extremities: strength 5/5 throughout Skin: no rashes, warm and dry sacral wound not examined Neurologic: dhillon, fluent speech, no tremor Psychiatric: Orientation: oriented x 3 Results & Data ([facility]) Vital Signs (Past 12 Hours) Vital Signs Temp Pulse Resp BP Pulse Ox O2 Del Method 06/24/22 07:50 Room Air 06/24/22 08:04 36.8 C 89 16 140/83 95 Room Air Laboratory Results 06/24/22 08:08 06/24/22 08:08
[2022-06-24] MEDS ORDERED: OXYMETAZOLINE 0.05% 30 ML BTL ONE (15:45)
--- NOTE | 2022-06-24 16:15 | Hospitalist Progress Note ---
Date of Service June 24, 2022 Assessment & Plan (1) Buttock wound: Plan: (1) Necrotizing fasciitis: With polymicrobial bacteremia-MRSA, Pseudomonas Plan: per Dr. Seth's notes with addendum: [place] [facility] [place] them abrasion and abscess of the right buttock and seen by surgery service while in [facility] Noted to have sepsis with bacteremia and was treated appropriately with infectious disease help from [place] Has had repeat CT scan on 06 June and noted to have necrotizing fasciitis and was transferred to [place] for surgical intervention Has had I & D in [place] with improvement of her necrotizing fasciitis Has been on oral antibiotic and will continue accordingly Complains today of pain but no fever and or chills and no increase in white count Has had fever last night up to 39.3-blood cultures were taken and she has been started with intravenous vancomycin and Zosyn on 06/18/2022 No more fever since morning of 06/19/2022 Continue intravenous vancomycin and Zosyn for now and oral Cipro and clindamycin have been on hold 06/24 afebrile x 2 days no leukocytosis BC: negative so far Repeat CT: 2. Again seen is a wound with soft tissue gas, inflammatory change, and subcutaneous fluid in the right buttock overlying the gluteus blake muscle. This has improved as compared 06/06/2022. 3. No discrete/organized fluid collection is seen on this unenhanced examination. 4. Pockets of fluid in the right gluteus blake muscle have resolved as compared 06/06/[address]22 Discussed with general surgery Dr. Amador, does not recommend surgery at this point Continue daptomycin plus Zosyn IV ID also informed of general surgery's plan Awaiting further recommendations per ID service (2) Abscess of buttock, right: Plan: As above Still has the gauze packing in wound of the right buttock New wound over left buttock as well 06/24 surgery not indicated as per Gen Surg continue IV abx continue daily wound care (3) Acute blood loss anemia: Plan: Hg 6.8- 7.3 likely from wound drainage, blood draws no other active bleeding noted 1 unit PRBC ordered Hg now 8.8 (4) Overdose of trazodone: Plan: Initial admission to [facility] on 05/22/2022 with trazodone overdose and suicidal ideation Psychiatric evaluation was done and the patient was cleared to continue antidepressant as prescribed No more suicidal ideation We will continue current medications for depression and anxiety No issues with suicidal ideation and or overdose 06/24 mood stable continue current medications Acute kidney injury Likely secondary to underlying infection, IV antibiotic Creatinine increased to 1.6 American Sign Language Teacher consulted Gentle IV fluids Monitor closely 06/24 Creatinine improving, now 1.4 DC IV fluids Monitor Bilateral lower extremity edema Doppler ultrasound negative Epistaxis Afrin spray ordered Hold aspirin and Lovenox Monitor (5) Depression: Plan: Has depression/anxiety Medications has been adjusted (6) Diabetes mellitus, type II: Plan: Continue with current medications (7) Hypertension: Plan: Hold lisinopril in light of acute kidney injury (8) Dyslipidemia: Plan: Continue statin (9) Hypothyroidism: Plan: Continue supplement (10) Sleep apnea: Plan: Continue to use CPAP at nighttime Plan DVT prophylaxis Lovenox held in light of epistaxis today CODE STATUS Full plan of care discussed with patient in detail and at length all questions answered she is understanding, agreeable, comfortable with the plan of care Admission and Anticipated Discharge Date Admission Date: June 18, 2022 Subjective Follow-up for right buttock wound, etc. Seen resting in bed, sleeping but easily awakened States she feels fine overall, improving daily although gradually No right buttock pain on exam, had a flareup this morning, now resolved Reports mild epistaxis this morning resolved with placement of pressure no chest pain, dyspnea, palpitations, dizziness No fever chills, abdominal pain, nausea vomiting No problems with urination No other symptoms Review of Systems Review of Systems: all noted and negative except for above Physical Exam Physical Exam: General- oriented x 3, not in distress, speaks in sentences with no effort or accessory muscle use Eyes- anicteric Neck- no JVD Lungs- clear BS bilaterally Heart- normal rate, regular rhythm; no murmurs Abdomen- normal bowel sounds, nondistended, soft, nontender Right buttock-wound: Edema resolving, erythema also resolving, no active bleeding or discharge Packing in place Extremities-mild pretibial edema, no calf tenderness Neuro- alert, oriented x 3; no gross focal neurologic deficits Skin- warm & dry Results & Data Results & Data ([facility]) Vital Signs (Past 12 Hours) Vital Signs Temp Pulse Resp BP Pulse Ox O2 Del Method 06/24/22 15:46 36.5 C 95 H 16 147/83 H 95 Room Air 06/24/22 07:50 Room Air 06/24/22 08:04 36.8 C 89 16 140/83 95 Room Air all noted and reviewed including below
[2022-06-24] MEDS: lamoTRIgine 100 MG TAB PO SCH (21:22)
[2022-06-24] MEDS: MONTELUKAST SODIUM 10 MG TABLET PO SCH (21:22)
[2022-06-24] MEDS: TOCOPHERYL, DL-ALPHA 400 UNITS 180 MG CAP PO SCH (21:23)
[2022-06-24] MEDS: traZODone HCL 50 MG TAB PO SCH (21:32)
[2022-06-25] MEDS: PIPERACILLIN/TAZOBACTAM 4.5 GM in DEXTROSE 5% 100 ML IV SCH ×3 (01:57→18:04)
[2022-06-25 06:23] LABS: Basophils # (auto) 0.04 K/uL (0-0.2); Basophils % (auto) 0.7 %; Eosinophils # (auto) 0.24 K/uL (0-0.50); Eosinophils % (auto) 4.3 %; Hematocrit (blood only) 25.9 % (34.1-44.9); Hemoglobin 7.9 g/dl (12.0-16.0); Immature Granulocytes # (auto) 0.07 K/uL (0.00-0.02); Immature Granulocytes % (auto) 1.2 %; Lymphocytes # (auto) 1.02 K/uL (1.2-3.4); Lymphocytes % (auto) 18.1 %; Mean Corpuscular Hemoglobin 24.9 pg (25.0-34.0); Mean Corpuscular Hgb Conc 30.5 g/dL (32.0-36.0); Mean Corpuscular Volume 81.7 fL (80.0-100.0); Mean Platelet Volume 9.9 fL (9.4-12.3); Monocytes # (auto) 0.68 K/uL (0.24-0.82); Monocytes % (auto) 12.1 %; Neutrophils # (auto) 3.58 K/uL (1.4-6.5); Neutrophils % (auto) 63.6 %; Platelet Count 206 K/uL (130-400); RDW Coefficient of Variation 17.8 % (11.5-14.5); RDW Standard Deviation 52.7 fL (36.4-46.3); Red Blood Count 3.17 M/uL (3.93-5.22); White Blood Count 5.63 K/ul (4.8-10.8)
[2022-06-25] MEDS: PANTOprazole 40 MG TAB PO SCH (06:37)
[2022-06-25] MEDS: LEVOTHYROXINE SODIUM 100 MCG TABLET PO SCH (06:37)
[2022-06-25 06:49] LABS: BUN Creatinine Ratio 14.2 (10-20); Calcium 8.9 mg/dl (8.5-10.1); Creatinine Clr Calc Pharmacy 35.9 ml/min; Est GFR (Non-African American) 34.5 ml/min; Potassium 3.3 mmol/L (3.5-5.1)
[2022-06-25 06:50] LABS: Tear Drop Cells 1+
[2022-06-25] MEDS: MEMANTINE HCL 5 MG TAB PO SCH ×2 (08:31→20:35)
[2022-06-25] MEDS: PREGABALIN 50 MG CAP PO SCH ×2 (08:31→20:39)
[2022-06-25] MEDS: EZETIMIBE/SIMVASTATIN 10/20 TAB PO SCH (08:32)
[2022-06-25] MEDS: buPROPion SR 100 MG TABCR PO SCH ×2 (08:32→20:36)
[2022-06-25] MEDS: CALCIUM 600MG + VIT D 400 IU TAB PO SCH ×2 (08:32→20:35)
[2022-06-25] MEDS: FAMOTIDINE 40 MG TABLET PO SCH ×2 (08:32→20:37)
[2022-06-25] MEDS: FOLIC ACID 400 MCG TAB PO SCH (08:33)
[2022-06-25] MEDS: OMEGA-3 (PURIFIED FISH OIL) 1 GM CAP PO SCH (08:33)
[2022-06-25] MEDS: busPIRone 5 MG TAB PO SCH ×2 (08:33→20:37)
[2022-06-25] MEDS: MAGNESIUM OXIDE 400 MG TAB PO SCH (08:33)
[2022-06-25] MEDS: ADVANCED PROBIOTIC 1250 MG CAPSULE PO SCH (08:34)
[2022-06-25] MEDS: DONEPEZIL HCL 10 MG TAB PO SCH (08:34)
[2022-06-25] MEDS: FLUTICASONE/VILANTEROL 200/25MCG 14 PUFFS/INHALER INH SCH (08:35)
[2022-06-25] MEDS: CYANOCOBALAMIN (B-12) 500 MCG TABLET PO SCH (08:35)
[2022-06-25] MEDS: FLUTICASONE PROPIONATE NA SPR 16 GM BTL SCH (08:35)
[2022-06-25] MEDS: DULoxetine HCL 60 MG CAP PO SCH (08:35)
[2022-06-25] MEDS: DAPTOmycin 550 MG in SYRINGE 0 ML IV SCH (08:41)
[2022-06-25] MEDS ORDERED: POTASSIUM CHLORIDE CRTAB 20 MEQ TABCR PO STA (08:47)
[2022-06-25] MEDS: INSULIN ASPART PER UNIT SC SCH ×4 (09:22→20:44)
[2022-06-25] MEDS: CETIRIZINE HCL 10 MG TABLET PO SCH (09:49)
--- NOTE | 2022-06-25 10:28 | Hospitalist Progress Note ---
Date of Service June 25, 2022 Assessment & Plan (1) Buttock wound: Plan: (1) Necrotizing fasciitis: With polymicrobial bacteremia-MRSA, Pseudomonas Plan: per Dr. Seth's notes with addendum: Presented to the [facility] with them abrasion and abscess of the right buttock and seen by surgery service while in [facility] Noted to have sepsis with bacteremia and was treated appropriately with infectious disease help from [place] Has had repeat CT scan on 06 June and noted to have necrotizing fasciitis and was transferred to [place] for surgical intervention Has had I & D in [place] with improvement of her necrotizing fasciitis Has been on oral antibiotic and will continue accordingly Complains today of pain but no fever and or chills and no increase in white count Has had fever last night up to 39.3-blood cultures were taken and she has been started with intravenous vancomycin and Zosyn on 06/18/2022 No more fever since morning of 06/19/2022 Continue intravenous vancomycin and Zosyn for now and oral Cipro and clindamycin have been on hold 06/25 has been afebrile for the past few days no leukocytosis BC: negative so far Repeat CT: Again seen is a wound with soft tissue gas, inflammatory change, and sanches bcutaneous fluid in the right buttock overlying the gluteus blake muscle. This has improved as compared 06/06/2022. No discrete/organized fluid collection is seen on this unenhanced examination. Pockets of fluid in the right gluteus blake muscle have resolved as compared 06/06/2022 Discussed with general surgery Dr. Amador, does not recommend surgery Continue daptomycin plus Zosyn IV (Day 7) ID also informed of general surgery's plan Awaiting further recommendations per ID service (2) Abscess of buttock, right: Plan: As above Still has the gauze packing in wound of the right buttock New wound over left buttock as well 06/25 surgery not indicated as per Gen Surg continue IV abx continue daily wound care (3) Acute blood loss anemia: Plan: Hg 6.8- 7.3 likely from wound drainage, blood draws no other active bleeding noted 1 unit PRBC ordered Hg now 8.8--> 7.9 from epistaxis? monitor (4) Overdose of trazodone: Plan: Initial admission to [facility] on 05/22/2022 with trazodone overdose and suicidal ideation Psychiatric evaluation was done and the patient was cleared to continue antidepressant as prescribed No more suicidal ideation We will continue current medications for depression and anxiety No issues with suicidal ideation and or overdose 06/25 mood stable continue current medications Acute kidney injury Likely secondary to underlying infection, IV antibiotic Creatinine increased to 1.6 Bailiff consulted Gentle IV fluids Monitor closely 06/25 Creatinine improving, now 1.4 DC IV fluids Monitor Bilateral lower extremity edema Doppler ultrasound negative Epistaxis Afrin spray ordered resolved (5) Depression: Plan: Has depression/anxiety Medications has been adjusted (6) Diabetes mellitus, type II: Plan: Continue with current medications (7) Hypertension: Plan: Hold lisinopril in light of acute kidney injury (8) Dyslipidemia: Plan: Continue statin (9) Hypothyroidism: Plan: Continue supplement (10) Sleep apnea: Plan: Continue to use CPAP at nighttime Plan DVT prophylaxis Lovenox held in light of epistaxis-- resume tomorrow CODE STATUS Full plan of care discussed with patient in detail and at length all questions answered she is understanding, agreeable, comfortable with the plan of care patient's son also updated yesterday over the phone Admission and Anticipated Discharge Date Admission Date: June 18, 2022 Subjective ff up for R buttock wound infection, etc seen sitting up at the edge of the bed comfortable states she feels fine overall has nasal congestion, epistaxis resolved minimal discomfort R buttock wound area no chest pain, dyspnea, palpitations, dizziness no other symptoms Review of Systems Review of Systems: all noted and negative except for above Physical Exam Physical Exam: General- oriented x 3, not in distress, speaks in sentences with no effort or accessory muscle use Eyes- anicteric Neck- no JVD Lungs- clear BS bilaterally, no rales/wheezes Heart- normal rate, regular rhythm; no murmurs Abdomen- normal bowel sounds, nondistended, soft, nontender Extremities- no pretibial edema, no calf tenderness R buttock- wound with no bleeding discharge, minimal erythema surrounding, minimal tenderness Neuro- alert, oriented x 3; no gross focal neurologic deficits Skin- warm & dry Results & Data Results & Data ([facility]) Vital Signs (Past 12 Hours) Vital Signs Temp Pulse Resp BP Pulse Ox O2 Del Method 06/25/22 07:50 Room Air 06/25/22 07:12 36.7 C 89 16 150/79 H 95 Room Air all noted and reviewed including below
[2022-06-25] MEDS: oxyCODONE HCL IR 5 MG TAB (IMMEDIATE RELEASE) PO PRN (16:20)
[2022-06-25] MEDS ORDERED: amLODIPine BESYLATE 5 MG TAB PO ONE (17:08)
[2022-06-25] MEDS: lamoTRIgine 100 MG TAB PO SCH (20:34)
[2022-06-25] MEDS: MONTELUKAST SODIUM 10 MG TABLET PO SCH (20:35)
[2022-06-25] MEDS: TOCOPHERYL, DL-ALPHA 400 UNITS 180 MG CAP PO SCH (20:36)
[2022-06-25] MEDS: traZODone HCL 50 MG TAB PO SCH (20:39)
[2022-06-26] MEDS: PIPERACILLIN/TAZOBACTAM 4.5 GM in DEXTROSE 5% 100 ML IV SCH (02:40)
[2022-06-26] MEDS: PANTOprazole 40 MG TAB PO SCH (05:29)
[2022-06-26] MEDS: LEVOTHYROXINE SODIUM 100 MCG TABLET PO SCH (05:29)
[2022-06-26 07:03] LABS: Basophils # (auto) 0.05 K/uL (0-0.2); Basophils % (auto) 0.6 %; Eosinophils # (auto) 0.33 K/uL (0-0.50); Eosinophils % (auto) 4.2 %; Hematocrit (blood only) 27.7 % (34.1-44.9); Hemoglobin 8.5 g/dl (12.0-16.0); Immature Granulocytes # (auto) 0.09 K/uL (0.00-0.02); Immature Granulocytes % (auto) 1.2 %; Lymphocytes # (auto) 1.06 K/uL (1.2-3.4); Lymphocytes % (auto) 13.6 %; Mean Corpuscular Hemoglobin 25.1 pg (25.0-34.0); Mean Corpuscular Hgb Conc 30.7 g/dL (32.0-36.0); Mean Corpuscular Volume 81.7 fL (80.0-100.0); Mean Platelet Volume 9.7 fL (9.4-12.3); Monocytes # (auto) 0.94 K/uL (0.24-0.82); Monocytes % (auto) 12.1 %; Neutrophils # (auto) 5.32 K/uL (1.4-6.5); Neutrophils % (auto) 68.3 %; Platelet Count 230 K/uL (130-400); RDW Standard Deviation 53.4 fL (36.4-46.3); Red Blood Count 3.39 M/uL (3.93-5.22); White Blood Count 7.79 K/ul (4.8-10.8)
[2022-06-26 08:00] LABS: BUN Creatinine Ratio 13.5 (10-20); Calcium 9.2 mg/dl (8.5-10.1); Creatinine Clr Calc Pharmacy 34.3 ml/min; Est GFR (African American) 37.8 ml/min; Est GFR (Non-African American) 32.6 ml/min; Potassium 3.4 mmol/L (3.5-5.1)
[2022-06-26] MEDS: MEMANTINE HCL 5 MG TAB PO SCH ×2 (09:12→21:18)
[2022-06-26] MEDS: CALCIUM 600MG + VIT D 400 IU TAB PO SCH ×2 (09:12→21:20)
[2022-06-26] MEDS: ACETAMINOPHEN 500 MG TAB PO PRN (09:12)
[2022-06-26] MEDS: buPROPion SR 100 MG TABCR PO SCH ×2 (09:12→21:20)
[2022-06-26] MEDS: FAMOTIDINE 40 MG TABLET PO SCH ×2 (09:12→21:21)
[2022-06-26] MEDS: busPIRone 5 MG TAB PO SCH ×2 (09:12→21:19)
[2022-06-26] MEDS: CETIRIZINE HCL 10 MG TABLET PO SCH (09:13)
[2022-06-26] MEDS: DULoxetine HCL 60 MG CAP PO SCH (09:13)
[2022-06-26] MEDS: ADVANCED PROBIOTIC 1250 MG CAPSULE PO SCH (09:13)
[2022-06-26] MEDS: CYANOCOBALAMIN (B-12) 500 MCG TABLET PO SCH (09:13)
[2022-06-26] MEDS: MAGNESIUM OXIDE 400 MG TAB PO SCH (09:13)
[2022-06-26] MEDS: EZETIMIBE/SIMVASTATIN 10/20 TAB PO SCH (09:13)
[2022-06-26] MEDS: DONEPEZIL HCL 10 MG TAB PO SCH (09:13)
[2022-06-26] MEDS: FLUTICASONE/VILANTEROL 200/25MCG 14 PUFFS/INHALER INH SCH (09:13)
[2022-06-26] MEDS: OMEGA-3 (PURIFIED FISH OIL) 1 GM CAP PO SCH (09:13)
[2022-06-26] MEDS: FOLIC ACID 400 MCG TAB PO SCH (09:13)
[2022-06-26] MEDS: FLUTICASONE PROPIONATE NA SPR 16 GM BTL SCH (09:14)
[2022-06-26] MEDS: INSULIN ASPART PER UNIT SC SCH ×4 (09:20→21:14)
[2022-06-26] MEDS: PREGABALIN 50 MG CAP PO SCH ×2 (09:20→21:17)
[2022-06-26] MEDS: DAPTOmycin 550 MG in SYRINGE 0 ML IV SCH (09:20)
[2022-06-26] MEDS: amLODIPine BESYLATE 5 MG TAB PO SCH (09:22)
[2022-06-26] MEDS ORDERED: POTASSIUM CHLORIDE CRTAB 20 MEQ TABCR PO ONE (13:13)
[2022-06-26] MEDS ORDERED: MAGNESIUM SULFATE / D5W 1 GM/100 ML BAG IV ONE (14:24)
--- NOTE | 2022-06-26 15:57 | Hospitalist Progress Note ---
Date of Service June 26, 2022 Assessment & Plan (1) Buttock wound: Plan: Necrotizing fasciitis: 05/22/22 - Initially presented to [facility] with abscess of the right buttock, sepsis, polymicrobial bacteremia w/ MRSA and Pseudomonas Had repeat CT scan on 06 June and noted to have necrotizing fasciitis and was transferred to [place] for surgical intervention. Transferred back to [facility] on 06/18 on p.o. Cipro and clinda which patient was to be on until 06/20 Spiked fever on 06/19 and patient was started on Vanco and Zosyn --> Vanco switched to Dapto on 06/23 for renal function concerns Patient has remained afebrile since 06/[address] Avalos with [facility] today --recommends stopping antibiotics and monitoring patient closely Continue wound care CT ABD/pelvis 06/23/2022: 1. Significantly suboptimal examination without IV contrast. 2. Again seen is a wound with soft tissue gas, inflammatory change, and subcutaneous fluid in the right buttock overlying the gluteus blake muscle. This has improved as compared 06/06/2022. 3. No discrete/organized fluid collection is seen on this unenhanced examination. 4. Pockets of fluid in the right gluteus blake muscle have resolved as compared 06/06/2022 5. Small pleural effusions. 6. Colonic diverticulosis without CT evidence of acute diverticulitis. 7. Additional findings as above. Acute kidney injury: Baseline creat ~ 0.6 Likely secondary to underlying infection, IV antibiotic Creatinine peaked at 1.6 on 06/23 Creat 1.5 today Nephro following Received IVF, Lisinopril held, Dapto started in lieu of Vanco Monitor BMP Acute blood loss anemia: Recent baseline hgb ~ 8.0 - 9.0 hgb 8.5 today Likely from wound drainage, blood draws, prolonged illness Received 1 unit PRBC on 06/21 for Hgb 6.9 Episode of mild epistaxis on 06/24 --no further or additional bleeding episodes noted Overdose of trazodone, hx Depression: Initial admission to [facility] 05/22/2022 with trazodone overdose and suicidal ideation Psychiatric evaluation was done and the patient was cleared to continue antidepressant as prescribed No more suicidal ideation Diabetes mellitus, type II: hgb a1c 6.9 05/2022 Hold oral agents and utilize NovoLog per protocol while hospitalized Hypertension: Lisinopril on hold as above Dyslipidemia: Continue statin Hypothyroidism: Continue levothyroxine Sleep apnea: Continue to use CPAP at nighttime DVT Prophylaxis: Lovenox on hold due to episode of mild epistaxis, resume today Dispo - Likely will need SNF at discharge. Case management following. Admission and Anticipated Discharge Date Admission Date: June 18, 2022 Supervising Physician Co-Signing Physician Notes Attending Addendum: care coordinated with ORACIO Gill please refer to her notes for full details, I agree with her notes patient seen and examined, records reviewed by myself as well on exam, patient seen resting in bed, comfortable states she feels fine overall mild R buttock discomfort, improving diagnoses and plan of care as per ORACIO Wynne MD Subjective Follow-up for buttock wound, necrotizing fasciitis. Patient seen and examined. Sitting up on the edge of the bed. Patient offers no complaints. Eager to be discharged. Patient believes that she will need to go to rehab as her was just discharged in the hospital and would not be able to help care for her. Patient remains afebrile. No abdominal pain or nausea. Denies chest pain or shortness of breath. Review of Systems Review of Systems: ROS per HPI, all other systems reviewed and negative Physical Exam Constitutional: WD/WN, vitals as above Respiratory: normal respiratory effort, lungs clear to auscultation Cardiovascular: Rate/Rhythm: regular rate and regular rhythm Vessels: normal peripheral pulses Extremities: + edema (+1 edema RLE) Gastrointestinal (Abdomen): Percussion/Palpation: abdomen soft; abdomen nontender Skin: no rashes, warm and dry Neurologic: no focal motor deficits Psychiatric: A+Ox3, euthymic affect Results & Data Results & Data ([facility]) Vital Signs (Past 12 Hours) Vital Signs Temp Pulse Resp BP Pulse Ox 06/26/22 08:10 36.7 C 96 H 18 153/83 H 93 Laboratory Results Short CBC 06/26/22 Range/Units 06:43 WBC 7.79 (4.8-10.8) K/ul Hgb 8.5 L (12.0-16.0) g/dl Hct 27.7 L (34.1-44.9) % Plt Count 230 (130-400) K/uL BMP 06/26/22 06:43 Sodium 140 Potassium 3.4 L Chloride 106 Carbon Dioxide 25 BUN 21 Creatinine 1.55 H Glucose 145 H Calcium 9.2
[2022-06-26] MEDS: oxyCODONE HCL IR 5 MG TAB (IMMEDIATE RELEASE) PO PRN (18:00)
--- NOTE | 2022-06-26 20:56 | Nephrology Progress Note ---
Date of Service June 26, 2022 Assessment & Plan (1) Acute kidney injury: Plan: creat had been 0.6 and now worse but stable past 4 days at 1.6. no clear cause. chemistries/volume status ok but fo rmild low K. -daily bmp -primary service repleted K today -cont to avoid nephrotoxins but may be able to reintrocde lower dose ACEI soon Admission and Anticipated Discharge Date Admission Date: June 18, 2022 Subjective no interval events. no sob, n/v, worsenign edema, voiding sx Review of Systems Review of Systems: All systems reviewed & are unremarkable except as noted in Subjective Physical Exam Constitutional: well developed and well nourished; no acute distress Eyes: EOM intact bilaterally ENMT: Ears: no external ear abnormality Nose: no external nose abnormality Mouth: + dry oral mucous membranes Neck: no nuchal rigidity Respiratory: normal respiratory effort Auscultation: + diminished lung sounds Cardiovascular: Rate/Rhythm: + tachycardic Extremities: + edema (trace) Gastrointestinal (Abdomen): Inspection/Auscultation: normal bowel sounds Percussion/Palpation: abdomen soft; abdomen nontender Musculoskeletal: Extremities: strength 5/5 throughout Skin: no rashes, warm and dry Neurologic: dhillon, fluent speech, no tremor Results & Data ([facility]) Vital Signs (Past 12 Hours) Vital Signs Temp Pulse Resp BP Pulse Ox O2 Del Method 06/26/22 15:55 36.8 C 106 H 18 147/84 H 96 Room Air Laboratory Results 06/26/22 06:43 06/26/22 06:43
[2022-06-26] MEDS: traZODone HCL 50 MG TAB PO SCH (21:17)
[2022-06-26] MEDS: lamoTRIgine 100 MG TAB PO SCH (21:18)
[2022-06-26] MEDS: TOCOPHERYL, DL-ALPHA 400 UNITS 180 MG CAP PO SCH (21:19)
[2022-06-26] MEDS: MONTELUKAST SODIUM 10 MG TABLET PO SCH (21:20)
[2022-06-27] MEDS: LEVOTHYROXINE SODIUM 100 MCG TABLET PO SCH (05:56)
[2022-06-27] MEDS: PANTOprazole 40 MG TAB PO SCH (05:56)
[2022-06-27 07:08] LABS: Basophils # (auto) 0.08 K/uL (0-0.2); Basophils % (auto) 0.9 %; Eosinophils # (auto) 0.44 K/uL (0-0.50); Hematocrit (blood only) 29.6 % (34.1-44.9); Immature Granulocytes # (auto) 0.08 K/uL (0.00-0.02); Immature Granulocytes % (auto) 0.9 %; Lymphocytes # (auto) 1.19 K/uL (1.2-3.4); Lymphocytes % (auto) 13.6 %; Mean Corpuscular Hemoglobin 24.9 pg (25.0-34.0); Mean Corpuscular Hgb Conc 30.4 g/dL (32.0-36.0); Mean Platelet Volume 9.8 fL (9.4-12.3); Monocytes # (auto) 1.04 K/uL (0.24-0.82); Monocytes % (auto) 11.9 %; Neutrophils # (auto) 5.93 K/uL (1.4-6.5); Neutrophils % (auto) 67.7 %; Platelet Count 266 K/uL (130-400); RDW Coefficient of Variation 17.9 % (11.5-14.5); RDW Standard Deviation 53.5 fL (36.4-46.3); Red Blood Count 3.61 M/uL (3.93-5.22); White Blood Count 8.76 K/ul (4.8-10.8)
[2022-06-27 07:27] LABS: BUN Creatinine Ratio 18.1 (10-20); Calcium 9.4 mg/dl (8.5-10.1); Creatinine Clr Calc Pharmacy 41.9 ml/min; Est GFR (African American) 48.1 ml/min; Est GFR (Non-African American) 41.5 ml/min; Magnesium 1.7 mg/dl (1.7-2.4); Potassium 3.5 mmol/L (3.5-5.1)
[2022-06-27] MEDS: ACETAMINOPHEN 500 MG TAB PO PRN (08:18)
[2022-06-27] MEDS: buPROPion SR 100 MG TABCR PO SCH ×2 (08:20→20:57)
[2022-06-27] MEDS: CALCIUM 600MG + VIT D 400 IU TAB PO SCH ×2 (08:20→20:56)
[2022-06-27] MEDS: busPIRone 5 MG TAB PO SCH ×2 (08:20→20:56)
[2022-06-27] MEDS: CETIRIZINE HCL 10 MG TABLET PO SCH (08:21)
[2022-06-27] MEDS: CYANOCOBALAMIN (B-12) 500 MCG TABLET PO SCH (08:21)
[2022-06-27] MEDS: DONEPEZIL HCL 10 MG TAB PO SCH (08:22)
[2022-06-27] MEDS: MEMANTINE HCL 5 MG TAB PO SCH ×2 (08:22→20:56)
[2022-06-27] MEDS: DULoxetine HCL 60 MG CAP PO SCH (08:22)
[2022-06-27] MEDS: EZETIMIBE/SIMVASTATIN 10/20 TAB PO SCH (08:23)
[2022-06-27] MEDS: OMEGA-3 (PURIFIED FISH OIL) 1 GM CAP PO SCH (08:23)
[2022-06-27] MEDS: FAMOTIDINE 40 MG TABLET PO SCH ×2 (08:23→20:57)
[2022-06-27] MEDS: FOLIC ACID 400 MCG TAB PO SCH (08:24)
[2022-06-27] MEDS: FLUTICASONE/VILANTEROL 200/25MCG 14 PUFFS/INHALER INH SCH (08:24)
[2022-06-27] MEDS: FLUTICASONE PROPIONATE NA SPR 16 GM BTL SCH (08:24)
[2022-06-27] MEDS: ADVANCED PROBIOTIC 1250 MG CAPSULE PO SCH (08:25)
[2022-06-27] MEDS: MAGNESIUM OXIDE 400 MG TAB PO SCH (08:25)
[2022-06-27] MEDS: amLODIPine BESYLATE 5 MG TAB PO SCH (08:27)
[2022-06-27] MEDS ORDERED: POTASSIUM CHLORIDE CRTAB 20 MEQ TABCR PO ONE (08:35)
[2022-06-27] MEDS ORDERED: MAGNESIUM SULFATE / D5W 1 GM/100 ML BAG IV ONE (08:35)
[2022-06-27] MEDS: PREGABALIN 50 MG CAP PO SCH ×2 (08:35→20:55)
[2022-06-27] MEDS: INSULIN ASPART PER UNIT SC SCH ×4 (08:36→20:54)
--- NOTE | 2022-06-27 09:32 | Hospitalist Progress Note ---
Date of Service June 27, 2022 Assessment & Plan (1) Buttock wound: Plan: Necrotizing fasciitis: 05/22/22 - Initially presented to [facility] with abscess of the right buttock, sepsis, polymicrobial bacteremia w/ MRSA and Pseudomonas Had repeat CT scan on 06 June and noted to have necrotizing fasciitis and was transferred to [place] for surgical intervention. Transferred back to [facility] on 06/18 on p.o. Cipro and clinda which patient was to be on until 06/20 Spiked fever on 06/19 and patient was started on Vanco and Zosyn --> Vanco switched to Dapto on 06/23 for renal function concerns Patient has remained afebrile since 06/[address] Avalos with [facility] on 06/26 --recommends stopping antibiotics and monitoring patient closely Continue wound care CT ABD/pelvis 06/23/2022: 1. Significantly suboptimal examination without IV contrast. 2. Again seen is a wound with soft tissue gas, inflammatory change, and subcutaneous fluid in the right buttock overlying the gluteus blake muscle. This has improved as compared 06/06/2022. 3. No discrete/organized fluid collection is seen on this unenhanced examination. 4. Pockets of fluid in the right gluteus blake muscle have resolved as compared 06/06/2022 5. Small pleural effusions. 6. Colonic diverticulosis without CT evidence of acute diverticulitis. 7. Additional findings as above. Tachycardia, prolonged QTC HR has been running 90s-low 100s BP also increasing since Lisinopril has been held EKG shows sinus tach, QTC 521 K+, Mg+ low end of normal today -- will replace and recheck EKG this afternoon Start low dose metoprolol 2/2 increasing BP and sinus tach Acute kidney injury: Baseline creat ~ 0.6 Likely secondary to underlying infection, IV antibiotic Creatinine peaked at 1.6 on 06/23 Creatinine continues to improve, 1.27 today Nephro following Received IVF, Lisinopril remains on hold, Dapto started in lieu of Vanco (Dapto DC'd 06/26) Monitor BMP Acute blood loss anemia: Recent baseline hgb ~ 8.0 - 9.0 hgb 9.0 today Likely from wound drainage, blood draws, prolonged illness Received 1 unit PRBC on 06/21 for Hgb 6.9 Episode of mild epistaxis on 06/24 --no further or additional bleeding episodes noted Overdose of trazodone, hx Depression: Initial admission to [facility] 05/22/2022 with trazodone overdose and suicidal ideation Psychiatric evaluation was done and the patient was cleared to continue antidepressant as prescribed No more suicidal ideation Diabetes mellitus, type II: hgb a1c 6.9 05/2022 Hold oral agents and utilize NovoLog per protocol while hospitalized Hypertension: Lisinopril on hold, starting metoprolol as above Dyslipidemia: Continue Vytorin Hypothyroidism: Continue levothyroxine Sleep apnea: Continue to use CPAP at nighttime DVT Prophylaxis: SQ Lovenox Dispo - Likely will need SNF at discharge. Case management following. Plan Attending Addendum: care coordinated with CNLOUISE Upton please refer to her notes for full details, I agree with her notes patient seen and examined, records reviewed by myself as well on exam, patient seen resting in bed, comfortable, not in distress Reports mild pain over the right buttock yesterday No fevers or chills Ambulate in the hallways today, no dizziness but gets fatigued easily Diagnoses and plan of care as per ORACIO upton's notes Chente Wynne MD Admission and Anticipated Discharge Date Admission Date: June 18, 2022 Subjective Follow-up for buttock wound, necrotizing fasciitis. Patient seen and examined. Sitting up at the edge of the bed, having breakfast. Discussed discharge plan with patient --she is agreeable to rehab. Patient reports she is generally feeling well this morning, reports a mild headache that she states she has almost every morning. This has been relieved with Tylenol. Patient remains afebrile. No chest pain or shortness of breath. Denies abdominal pain or nausea. Review of Systems Review of Systems: ROS per HPI, all other systems reviewed and negative Physical Exam Constitutional: WD/WN, vitals as above no acute distress Sitting on the edge of the bed Respiratory: normal respiratory effort, lungs clear to auscultation Cardiovascular: Rate/Rhythm: regular rhythm and + tachycardic Vessels: normal peripheral pulses Extremities: + edema (Trace edema RLE) Gastrointestinal (Abdomen): Percussion/Palpation: abdomen soft; abdomen nontender Skin: no rashes, warm and dry Neurologic: no focal motor deficits Psychiatric: A+Ox3, euthymic affect Results & Data Results & Data ([facility]) Vital Signs (Past 12 Hours) Vital Signs Temp Pulse Resp BP Pulse Ox O2 Del Method 06/27/22 07:25 36.7 C 100 H 18 154/86 H 93 Room Air Laboratory Results Short CBC 06/27/22 Range/Units 06:55 WBC 8.76 (4.8-10.8) K/ul Hgb 9.0 L (12.0-16.0) g/dl Hct 29.6 L (34.1-44.9) % Plt Count 266 (130-400) K/uL BMP 06/27/22 06:55 Sodium 139 Potassium 3.5 Chloride 104 Carbon Dioxide 26 BUN 23 Creatinine 1.27 H Glucose 152 H Calcium 9.4
[2022-06-27] MEDS: METOPROLOL TARTRATE 25 MG TAB PO SCH ×2 (10:06→20:57)
[2022-06-27] MEDS: ENOXAPARIN INJ 40 MG/0.4 ML SYR SQ SCH (10:47)
--- NOTE | 2022-06-27 11:07 | Nephrology Progress Note ---
Date of Service June 27, 2022 Assessment & Plan (1) Acute kidney injury: Plan: creat had been 0.6 and now worse but stable past several days at 1.6. no clear cause. imaging this timeframe w/o obstruction. Urine sediment bland. chemistries/volume status ok but for borderline/mild low K. -daily bmp -started standing low dose K -cont to avoid nephrotoxins but may be able to reintrocde lower dose ACEI soon WILL SIGN OFF; NEPHRO D/C recs >>>pt tells me she follows arturo/ [facility] outpatient director of technology >recommend f/u w/ Dr Barreto 2-4 wks after d/c with weekly bmp to be drawn /ordered by facility provider x 3 after d/c -monitor for edema on increased amlodipine and f/u TFTs -cont current bp meds -hold lisinopril (2) Hypertension: Plan: ACEI on hold d/t renal function >increased CCB to 10 mg daily -may need to uptitrate BB as well, but today is first day on it so will observe >ordered TSH/TFTs for AM Admission and Anticipated Discharge Date Admission Date: June 18, 2022 Subjective nointerval events. denies pain, notes mild BL edema. Review of Systems Review of Systems: All systems reviewed & are unremarkable except as noted in Subjective Physical Exam Constitutional: well developed and well nourished; no acute distress Eyes: EOM intact bilaterally ENMT: Ears: no external ear abnormality Nose: no external nose abnormality Mouth: + dry oral mucous membranes Neck: no nuchal rigidity Respiratory: normal respiratory effort Auscultation: + diminished lung sounds Cardiovascular: Rate/Rhythm: + tachycardic Extremities: + edema (trace) Gastrointestinal (Abdomen): Inspection/Auscultation: normal bowel sounds Percussion/Palpation: abdomen soft; abdomen nontender Musculoskeletal: Extremities: strength 5/5 throughout Skin: no rashes, warm and dry Neurologic: dhillon, fluent speech, no tremor Psychiatric: A+Ox3, euthymic affect Results & Data ([facility]) Vital Signs (Past 12 Hours) Vital Signs Temp Pulse Resp BP BP Pulse Ox O2 Del Method 06/27/22 10:05 103 H 157/74 H 06/27/22 07:25 36.7 C 100 H 18 154/86 H 93 Room Air Laboratory Results 06/27/22 06:55 06/27/22 06:55
--- NOTE | 2022-06-27 14:09 | Electrocardiogram Report ---
Test Reason : Blood Pressure : / mmHG Vent. Rate : 100 BPM Atrial Rate : 100 BPM P-R Int : 172 ms QRS Dur : 088 ms QT Int : 404 ms P-R-T Axes : 045 048 054 degrees QTc Int : 521 ms Normal sinus rhythm Nonspecific T wave abnormality Prolonged QT Abnormal ECG When compared with ECG of 19-JUN-2022 13:09, No significant change was found Confirmed by Reynaldo Pan ([id number]) on 06/27/2022 2:08:32 PM Referred By: Subha Chacko Confirmed By:Reynaldo Pan
[2022-06-27] MEDS: oxyCODONE HCL IR 5 MG TAB (IMMEDIATE RELEASE) PO PRN (18:05)
[2022-06-27] MEDS: traZODone HCL 50 MG TAB PO SCH (20:54)
[2022-06-27] MEDS: MONTELUKAST SODIUM 10 MG TABLET PO SCH (20:56)
[2022-06-27] MEDS: lamoTRIgine 100 MG TAB PO SCH (20:56)
[2022-06-27] MEDS: TOCOPHERYL, DL-ALPHA 400 UNITS 180 MG CAP PO SCH (20:56)
[2022-06-28] MEDS: LEVOTHYROXINE SODIUM 100 MCG TABLET PO SCH (05:55)
[2022-06-28] MEDS: PANTOprazole 40 MG TAB PO SCH (05:55)
[2022-06-28 07:57] LABS: BUN Creatinine Ratio 19.7 (10-20); Calcium 9.4 mg/dl (8.5-10.1); Creatinine Clr Calc Pharmacy 40.3 ml/min; Est GFR (African American) 45.9 ml/min; Est GFR (Non-African American) 39.6 ml/min; Magnesium 1.8 mg/dl (1.7-2.4)
[2022-06-28] MEDS: PREGABALIN 50 MG CAP PO SCH ×2 (09:05→22:18)
[2022-06-28] MEDS: METOPROLOL TARTRATE 25 MG TAB PO SCH ×2 (09:06→22:19)
[2022-06-28] MEDS: amLODIPine BESYLATE 5 MG TAB PO SCH (09:06)
[2022-06-28] MEDS: FAMOTIDINE 40 MG TABLET PO SCH ×2 (09:06→22:20)
[2022-06-28] MEDS: buPROPion SR 100 MG TABCR PO SCH ×2 (09:07→22:20)
[2022-06-28] MEDS: CALCIUM 600MG + VIT D 400 IU TAB PO SCH ×2 (09:07→22:20)
[2022-06-28] MEDS: busPIRone 5 MG TAB PO SCH ×2 (09:07→22:19)
[2022-06-28] MEDS: DULoxetine HCL 60 MG CAP PO SCH (09:07)
[2022-06-28] MEDS: CYANOCOBALAMIN (B-12) 500 MCG TABLET PO SCH (09:07)
[2022-06-28] MEDS: MEMANTINE HCL 5 MG TAB PO SCH ×2 (09:07→22:18)
[2022-06-28] MEDS: EZETIMIBE/SIMVASTATIN 10/20 TAB PO SCH (09:08)
[2022-06-28] MEDS: FOLIC ACID 400 MCG TAB PO SCH (09:08)
[2022-06-28] MEDS: OMEGA-3 (PURIFIED FISH OIL) 1 GM CAP PO SCH (09:08)
[2022-06-28] MEDS: MAGNESIUM OXIDE 400 MG TAB PO SCH (09:09)
[2022-06-28] MEDS: CETIRIZINE HCL 10 MG TABLET PO SCH (09:09)
[2022-06-28] MEDS: ADVANCED PROBIOTIC 1250 MG CAPSULE PO SCH (09:09)
[2022-06-28] MEDS: DONEPEZIL HCL 10 MG TAB PO SCH (09:09)
[2022-06-28] MEDS: FLUTICASONE PROPIONATE NA SPR 16 GM BTL SCH (09:10)
[2022-06-28] MEDS: ENOXAPARIN INJ 40 MG/0.4 ML SYR SQ SCH (09:10)
[2022-06-28] MEDS: INSULIN ASPART PER UNIT SC SCH ×4 (09:11→22:17)
[2022-06-28] MEDS: FLUTICASONE/VILANTEROL 200/25MCG 14 PUFFS/INHALER INH SCH (09:13)
[2022-06-28] MEDS: oxyCODONE HCL IR 5 MG TAB (IMMEDIATE RELEASE) PO PRN ×2 (11:22→17:44)
--- NOTE | 2022-06-28 12:00 | Electrocardiogram Report ---
Test Reason : Blood Pressure : / mmHG Vent. Rate : 088 BPM Atrial Rate : 088 BPM P-R Int : 176 ms QRS Dur : 088 ms QT Int : 430 ms P-R-T Axes : 054 038 061 degrees QTc Int : 520 ms Normal sinus rhythm Prolonged QT Abnormal ECG When compared with ECG of 27-JUN-2022 08:01, No significant change was found Confirmed by Reynaldo Pan ([id number]) on 06/28/2022 12:00:27 PM Referred By: Subha Chacko Confirmed By:Reynaldo Pan
--- NOTE | 2022-06-28 12:27 | Hospitalist Progress Note ---
Date of Service June 28, 2022 Assessment & Plan (1) Buttock wound: Plan: Necrotizing fasciitis: 05/22/22 - Initially presented to [facility] with abscess of the right buttock, sepsis, polymicrobial bacteremia w/ MRSA and Pseudomonas Had repeat CT scan on 06 June and noted to have necrotizing fasciitis and was transferred to [place] for surgical intervention. Transferred back to [facility] on 06/18 on p.o. Cipro and clinda which patient was to be on until 06/20 Spiked fever on 06/19 and patient was started on Vanco and Zosyn --> Vanco switched to Dapto on 06/23 for renal function concerns Patient has remained afebrile since 06/19 -- isolated low grade temp 37.6 on 06/27, ? clinical significance Discussed with Dr. Avalos with [facility] on 06/26 --recommends stopping antibiotics and monitoring patient closely Continue wound care CT ABD/pelvis 06/23/2022: 1. Significantly suboptimal examination without IV contrast. 2. Again seen is a wound with soft tissue gas, inflammatory change, and subcutaneous fluid in the right buttock overlying the gluteus blake muscle. This has improved as compared 06/06/2022. 3. No discrete/organized fluid collection is seen on this unenhanced examination. 4. Pockets of fluid in the right gluteus blake muscle have resolved as compared 06/06/2022 5. Small pleural effusions. 6. Colonic diverticulosis without CT evidence of acute diverticulitis. 7. Additional findings as above. Tachycardia, prolonged QTC HR had been running 90s-low 100s and increasing BP since Lisinopril had been held EKGs have shown ST with QTC ~ 520 Noted to have low/borderline low Mg+ and K+ -- both replaced and started on standing low dose KCl daily 06/27 - Started low dose metoprolol 2/2 increasing BP and sinus tach with some improvement in HR Acute kidney injury: Baseline creat ~ 0.6 Likely secondary to underlying infection, IV antibiotic Creatinine peaked at 1.6 on 06/23 Creatinine continues to improve, 1.3 today -- may be new baseline Nephro following Received IVF, Lisinopril remains on hold, Dapto started in lieu of Vanco (Dapto DC'd 06/26) Nephro d/c instructions: -recommend f/u w/ Dr Barreto (patient reported she is known to him) 2-4 wks after d/c with weekly bmp to be drawn /ordered by facility provider x 3 after d/c -cont to hold Lisinopril Acute blood loss anemia: Recent baseline hgb ~ 8.0 - 9.0 hgb 9.0 on 06/27 Likely from wound drainage, blood draws, prolonged illness Received 1 unit PRBC on 06/21 for Hgb 6.9 Episode of mild epistaxis on 06/24 --no further or additional bleeding episodes noted Hypertension: Lisinopril on hold, started on metoprolol as above Nephro rec to increase amlodipine to 10mg daily Overdose of trazodone, hx Depression: Initial admission to [facility] 05/22/2022 with trazodone overdose and suicidal ideation Psychiatric evaluation was done and the patient was cleared to continue antidepressant as prescribed No more suicidal ideation Diabetes mellitus, type II: hgb a1c 6.9 05/2022 Hold oral agents and utilize NovoLog per protocol while hospitalized Dyslipidemia: Continue Vytorin Hypothyroidism: Continue levothyroxine Sleep apnea: Continue to use CPAP at nighttime DVT Prophylaxis: SQ Lovenox Dispo - Planning d/c to [facility] 06/29. Patient to receive COVID booster prior to d/c. Admission and Anticipated Discharge Date Admission Date: June 18, 2022 Supervising Physician Co-Signing Physician Notes Attending Addendum: Care coordinated with ORACIO Gill. Please refer to her notes for full details, I agree with her notes Patient seen and examined independently. She is comfortable lying in the bed; not in any acute distress. On examination; no soakage seen over the wound site. Plan is to discharge her to subacute rehab in a.m. Subjective Follow-up for buttock wound, necrotizing fasciitis. Patient seen and examined. Resting in bed, no acute distress. Reports feeling fatigued today. Offers no other complaints. Denies chest pain and shortness of breath. No abdominal pain or nausea. Review of Systems Review of Systems: ROS per HPI, all other systems reviewed and negative Physical Exam Constitutional: WD/WN, vitals as above Respiratory: normal respiratory effort, lungs clear to auscultation Cardiovascular: Rate/Rhythm: regular rate and regular rhythm Vessels: normal peripheral pulses Extremities: no edema Gastrointestinal (Abdomen): Percussion/Palpation: abdomen soft; abdomen nontender Skin: no rashes, warm and dry dressing CDI to sacrum/buttock Neurologic: no focal motor deficits Psychiatric: A+Ox3, euthymic affect Results & Data Results & Data ([facility]) Vital Signs (Past 12 Hours) Vital Signs Temp Pulse Resp BP Pulse Ox O2 Del Method 06/28/22 07:22 36.7 C 93 H 16 148/92 H 93 Room Air Laboratory Results [facility] 06/28/22 07:19 Sodium 139 Potassium 4.0 Chloride 105 Carbon Dioxide 24 BUN 26 H Creatinine 1.32 H Glucose 143 H Calcium 9.4
[2022-06-28] MEDS ORDERED: COVID19 BIVALENT Vaccine (Booster ONLY--Pfizer) 30mcg/0.3mL IM ONE (12:30)
--- NOTE | 2022-06-28 12:31 | Electrocardiogram Report ---
Test Reason : Blood Pressure : / mmHG Vent. Rate : 092 BPM Atrial Rate : 092 BPM P-R Int : 176 ms QRS Dur : 088 ms QT Int : 418 ms P-R-T Axes : 080 095 073 degrees QTc Int : 516 ms Normal sinus rhythm Rightward axis Prolonged QT Abnormal ECG When compared with ECG of 27-JUN-2022 15:26, (unconfirmed) Questionable change in QRS axis Confirmed by Reynaldo Pan ([id number]) on 06/28/2022 12:31:20 PM Referred By: Subha Chacko Confirmed By:Reynaldo Pan
[2022-06-28] MEDS ORDERED: amLODIPine BESYLATE 5 MG TAB PO ONE (12:45)
[2022-06-28] MEDS: POTASSIUM CHLORIDE CRTAB 20 MEQ TABCR PO SCH (13:52)
[2022-06-28] MEDS: ACETAMINOPHEN 500 MG TAB PO PRN (15:56)
[2022-06-28] MEDS: traZODone HCL 50 MG TAB PO SCH (22:18)
[2022-06-28] MEDS: MONTELUKAST SODIUM 10 MG TABLET PO SCH (22:19)
[2022-06-28] MEDS: lamoTRIgine 100 MG TAB PO SCH (22:20)
[2022-06-28] MEDS: TOCOPHERYL, DL-ALPHA 400 UNITS 180 MG CAP PO SCH (22:20)
[2022-06-29] MEDS: PANTOprazole 40 MG TAB PO SCH (05:56)
[2022-06-29] MEDS: LEVOTHYROXINE SODIUM 100 MCG TABLET PO SCH (05:56)
[2022-06-29 06:53] LABS: BUN Creatinine Ratio 22.5 (10-20); Calcium 9.6 mg/dl (8.5-10.1); Creatinine Clr Calc Pharmacy 41.2 ml/min; Est GFR (African American) 47.2 ml/min; Est GFR (Non-African American) 40.8 ml/min; Potassium 3.9 mmol/L (3.5-5.1)
[2022-06-29] MEDS: FLUTICASONE/VILANTEROL 200/25MCG 14 PUFFS/INHALER INH SCH (08:42)
[2022-06-29] MEDS: FLUTICASONE PROPIONATE NA SPR 16 GM BTL SCH (08:42)
[2022-06-29] MEDS: ENOXAPARIN INJ 40 MG/0.4 ML SYR SQ SCH (08:43)
[2022-06-29] MEDS: POTASSIUM CHLORIDE CRTAB 20 MEQ TABCR PO SCH (08:45)
[2022-06-29] MEDS: METOPROLOL TARTRATE 25 MG TAB PO SCH (08:45)
[2022-06-29] MEDS: EZETIMIBE/SIMVASTATIN 10/20 TAB PO SCH (08:46)
[2022-06-29] MEDS: MEMANTINE HCL 5 MG TAB PO SCH (08:46)
[2022-06-29] MEDS: MAGNESIUM OXIDE 400 MG TAB PO SCH (08:46)
[2022-06-29] MEDS: FOLIC ACID 400 MCG TAB PO SCH (08:46)
[2022-06-29] MEDS: CETIRIZINE HCL 10 MG TABLET PO SCH (08:46)
[2022-06-29] MEDS: DULoxetine HCL 60 MG CAP PO SCH (08:46)
[2022-06-29] MEDS: busPIRone 5 MG TAB PO SCH (08:46)
[2022-06-29] MEDS: DONEPEZIL HCL 10 MG TAB PO SCH (08:46)
[2022-06-29] MEDS: buPROPion SR 100 MG TABCR PO SCH (08:47)
[2022-06-29] MEDS: CALCIUM 600MG + VIT D 400 IU TAB PO SCH (08:47)
[2022-06-29] MEDS: FAMOTIDINE 40 MG TABLET PO SCH (08:47)
[2022-06-29] MEDS ORDERED: amLODIPine BESYLATE 5 MG TAB PO SCH (09:00)
[2022-06-29] MEDS: CYANOCOBALAMIN (B-12) 500 MCG TABLET PO SCH (09:47)
[2022-06-29] MEDS: ADVANCED PROBIOTIC 1250 MG CAPSULE PO SCH (09:47)
[2022-06-29] MEDS: OMEGA-3 (PURIFIED FISH OIL) 1 GM CAP PO SCH (09:47)
[2022-06-29] MEDS: PREGABALIN 50 MG CAP PO SCH (09:47)
[2022-06-29] MEDS: INSULIN ASPART PER UNIT SC SCH ×2 (09:58→12:54)
--- NOTE | 2022-06-29 12:08 | Discharge Summary ---
Date of Service June 29, 2022 Admission HPI Per Admitting Provider She is a 76-year-old female with significant past medical history of type 2 diabetes, hypertension, hyperlipidemia, asthma, hypothyroidism, sleep apnea, vascular dementia, anxiety depression and necrotizing fasciitis involving the right buttock was transferred to [place] on of last month for surgical intervention for the necrotizing fasciitis of right buttock. She was admitted on 05/22/2022 with overdose of trazodone and suicidal ideation and noted to have sepsis secondary to staph aureus and Pseudomonas bacteremia due to buttock abscess. She has had psychiatric evaluation in the hospital and also surgery evaluation and ID consultation and was on appropriate antibiotic as per the recommendation. She had a CAT scan of the abdomen pelvis that was done on last month which showed necrotizing fasciitis and the surgical team advised the patient should be transferred to tertiary care center for continuation of care. She was transferred on 07 June and appropriate IND was done subsequently in [place] and the patient has been on oral antibiotics and has been stable to be transferred back to [facility] for continuation of care and placement. She complains today of pain at the right buttock incision area but denies any other symptoms. Denies any fever and or chills, any nausea and or vomiting, any chest pain or palpitation, any shortness of breath, any numbness and or tingling involving the extremities. She has been in bed almost and will initiate physical therapy. Her medications are reviewed and appropriately restarted. PT OT evaluation and adult protective caseworker for possible placement. Admission Exam Per Admitting Provider Physical Exam: Lying in bed comfortably Constitutional: well developed, well nourished, + ill appearing and + obese Eyes: PERRL, conjunctivae normal, anicteric sclerae ENMT: external ear and nose normal, oropharynx normal Neck: trachea midline, no thyromegaly Respiratory: no respiratory distress Auscultation: lungs clear to auscultation bilaterally; no crackles Cardiovascular: Rate/Rhythm: regular rate, regular rhythm and + tachycardic Heart Sounds: normal S1; no murmur Extremities: no edema Gastrointestinal (Abdomen): Inspection/Auscultation: + abdomen distended and normal bowel sounds Percussion/Palpation: abdomen soft; abdomen nontender Musculoskeletal: No acute arthritis in any joint. Right buttock area is bandaged Neurologic:L normal touch/pain/proprioception and moves all extremities; no focal motor deficits and not confused Psychiatric: A+Ox3, euthymic affect Lymphatic: no cervical or axillary lymphadenopathy Principal Diagnosis Sacral wound Discharge Exam Gen: WD/WN, NAD, sitting in bed, A&Ox3 HEENT: Normocephalic, atraumatic, conjunctivae moist, sclerae anicteric, mucous membranes moist Lung: Clear to Auscultation bilaterally, no wheezes/rales/rhonchi Heart: Regular rate, regular rhythm, no murmurs, rubs, or gallops Abdomen: Soft, NT, ND +BS x 4 Extremities: + no edema Skin: Warm, no rash. + dressing C/D/I to sacrum/buttock Discharge Data Allergies Allergy/AdvReac Type Severity Reaction Status Date / Time miconazole Allergy Intermediate SEVERE Verified 05/22/22 02:54 BURNING ITCHING morphine Allergy Intermediate ITCHING, Verified 05/22/22 02:54 ABD PAIN erythromycin base Allergy Unknown Unknown Verified 05/22/22 02:54 baclofen AdvReac Intermediate NAUSEA/VOMI Verified 05/22/22 02:54 TING clonazepam AdvReac Intermediate PSYCH Verified 05/22/22 02:54 COMPLICATIONS codeine AdvReac Intermediate DYSPEPSIA Verified 05/22/22 02:54 doxycycline AdvReac Intermediate GASTRITIS Verified 05/22/22 02:54 gabapentin AdvReac Intermediate FATIGUE Verified 05/22/22 02:54 Macrolide Antibiotics AdvReac Intermediate DYSPEPSIA Verified 05/22/22 02:54 (TOLERATED Z-PACK) primidone AdvReac Intermediate PSYCH Verified 05/22/22 02:54 COMPLICATIONS Consultations 06/19/22 12:52 Consult General Surgery Routine 06/21/22 09:06 Consult Infectious Diseases Routine 06/23/22 07:44 Consult Nephrology Routine Ordered Studies 06/23/22 07:39 CT abd pelvis wo con Routine 06/23/22 13:31 US venous doppler LE Urgent Hospital Course (1) Buttock wound: Necrotizing fasciitis: 05/22/22 - Initially presented to [facility] with abscess of the right buttock, sepsis, polymicrobial bacteremia w/ MRSA and Pseudomonas Had repeat CT scan on 06 June and noted to have necrotizing fasciitis and was transferred to [place] for surgical intervention. Transferred back to [facility] on 06/18 on p.o. Cipro and clinda which patient was to be on until 06/20 Spiked fever on 06/19 and patient was started on Vanco and Zosyn --> Vanco switched to Dapto on 06/23 for renal function concerns Patient has remained afebrile since 06/19 -- isolated low grade temp 37.6 on 06/27, ? clinical significance Discussed with [facility]. Avalos with [facility] on 06/26 --recommends stopping antibiotics and monitoring patient closely Continue wound care. Follow up wound care appointment schedule on 07/20/22 CT ABD/pelvis 06/23/2022: 1. Significantly suboptimal examination without IV contrast. 2. Again seen is a wound with soft tissue gas, inflammatory change, and subcutaneous fluid in the right buttock overlying the gluteus blake muscle. This has improved as compared 06/06/2022. 3. No discrete/organized fluid collection is seen on this unenhanced examination. 4. Pockets of fluid in the right gluteus blake muscle have resolved as compared 06/06/2022 5. Small pleural effusions. 6. Colonic diverticulosis without CT evidence of acute diverticulitis. 7. Additional findings as above. Tachycardia, prolonged QTC HR had been running 90s-low 100s and increasing BP since Lisinopril had been held EKGs have shown ST with QTC ~ 520 Noted to have low/borderline low Mg+ and K+ -- both replaced and started on standing low dose KCl daily 06/27 - Started low dose metoprolol 2/2 increasing BP and sinus tach with some improvement in HR Increased metoprolol tartrate to 25mg BID on discharge, continue Mg and KCl supplementation Lyrica decreased to 25mg BID. Repeat ECG x 1 week Acute kidney injury: Baseline creat ~ 0.6 Likely secondary to underlying infection, IV antibiotic Creatinine peaked at 1.6 on 06/23 Creatinine continues to improve, 1.3 today -- may be new baseline Nephro following Received IVF, Lisinopril remains on hold, Dapto started in lieu of Vanco (Dapto DC'd 06/26) Nephro d/c instructions: Continue to hold lisinopril Follow up w/ Dr Barreto in 2-4 wks after d/c with weekly bmp to be drawn /ordered by facility provider x 3 after discharge Acute blood loss anemia: Recent baseline hgb ~ 8.0 - 9.0 hgb 9.0 on 06/27 Likely from wound drainage, blood draws, prolonged illness Received 1 unit PRBC on 06/21 for Hgb 6.9 Episode of mild epistaxis on 06/24 --no further or additional bleeding episodes noted Hypertension: Lisinopril on hold, started on metoprolol as above Nephro rec to increase amlodipine to 10mg daily Overdose of trazodone, hx Depression: Initial admission to [facility] 05/22/2022 with trazodone overdose and suicidal ideation Psychiatric evaluation was done and the patient was cleared to continue antidepressant as prescribed No more suicidal ideation Diabetes mellitus, type II: hgb a1c 6.9 05/2022 Hold oral agents and utilize NovoLog per protocol while hospitalized Dyslipidemia: Continue Vytorin Hypothyroidism: Continue levothyroxine Sleep apnea: Continue to use CPAP at nighttime Disposition: Discharging to [facility] 06/29. Reviewed discharge with patient. Patient to receive COVID booster prior to d/c. Hemodynamically stable at time of discharge. Total Time Total Time Spent Total Time Spent (In Minutes): 70 Discharge Plan Discharge Items Patient Disposition: Transfer [facility] Reason For Visit: SACRAL ABSCESS Discharge Diagnosis: Sacral abscess, recent necrotizing fasciitis Activity: Resume your previous activity Non-emergency contact: Primary Care Provider Call non-emergency contact if: you have any medication questions, your symptoms worsen and your pain is not controlled Follow-up/Referrals: Katie Orozco CRNP [Nurse Practitioner] - 07/20/22 9:00 am (Wound care appt. on Jul 20 at 9:00am.) Papo Keyes MD [Primary Care Provider] - Diet: Carb Consistent or DM2 Diet Texture: Easy to Chew Addtl Attending Provider Instructions: Admitted for right buttock wound, has completed antibiotic treatment per [facility] infectious disease. Continue to monitor patient closely. Continue wound care at SNF - Appointment card with given to the pt along with instructions regarding wound care. Follow-up at outpatient wound care center on 07/20/2022 at 0900 Due to tachycardia during admission, started on metoprolol tartrate. Continue metoprolol tartrate 25mg BID QT prolongation noted on ECG. Decreased Lyrica to 25mg BID. Repeat ECG within week to monitor QT interval. Per nephrology, Cr of 1.3 may be new baseline. Continue to hold lisinopril. Follow up with Dr. Barreto in 2-4 weeks following discharge with weekly BMP to be drawn x 3 by SNF provider Continue magnesium and potassium supplementation. Started on amlodipine 10mg daily during admission. Discharge to [facility] on 06/29. Patient received COVID booster prior to d/c. RECOMMENDATIONS FOR FOLLOW-UP: Follow up with nephrology and wound care as above. SNF provider to repeat labwork and ECG as noted above. OTHER INSTRUCTIONS: Seek medical attention if you have: * temperature above 101 * chest pain or trouble breathing * abdominal pain, nausea, vomiting * diarrhea, dark stools or bloody stools * any unanswered questions or concerns Call 911 if symptoms are severe. Please take good care of yourself. Call if you have any questions or problems. You can reach a [facility] hospitalist on duty at [facility] 24 hours a day by calling [phone]. Pending Studies at Discharge: No Stand-Alone Forms: My [facility] Skilled Items Patient informed of condition?: Yes DNR: No Discharge Level of Care: Skilled Communicable Disease: No Discharge Prognosis: Stable Lines: None Urinary Catheter: No Medications and DC Order Prescriptions: New amlodipine [Norvasc] 5 mg Tablet 10 mg PO QAM Qty: 30 0RF potassium chloride 20 mEq Tablet,Er Particles/Crystals 20 meq PO QAM Qty: 30 0RF metoprolol tartrate 25 mg Tablet 25 mg PO BID Qty: 60 0RF Continued omega-3 fatty acids Capsule 1,000 mg PO DAILY celecoxib [Celebrex] 200 mg Capsule 200 mg PO QAM Qty: 30 0RF buspirone 5 mg tablet 5 mg PO BID Qty: 60 0RF Rx Instructions: MAY TAKE ADDITIONAL 5 MG tablet daily IF NEEDED FOR ANXIETY lamotrigine [Lamictal] 150 mg Tablet 150 mg PO QPM Qty: 30 0RF albuterol sulfate 2.5 mg /3 mL (0.083 %) Solution For Nebulization 2.5 mg INHALATION DIRECTED PRN (Reason: Shortness Of Breath Or Wheezing) Qty: 75 0RF trazodone 50 mg tablet 25 mg PO HS Qty: 15 0RF Rx Instructions: takes 1/2 tablet cadexomer iodine 0.9 % Gel 1 ea TOPICAL DAILY Qty: 40 0RF Rx Instructions: apply to toe as directed donepezil [Aricept] 10 mg Tablet 10 mg PO DAILY Qty: 30 0RF Rx Instructions: with largest meal of the day/dinner famotidine [Pepcid] 40 mg tablet 40 mg PO BID Qty: 60 0RF cyanocobalamin (vitamin B-12) [Vitamin B-12] 1,000 mcg Tablet 1,000 mcg PO DAILY Qty: 30 0RF Rx Instructions: under the tongue aspirin [Yolis Low Dose Aspirin] 81 mg Tablet,Delayed Release (Dr/Ec) 81 mg PO DAILY Qty: 30 0RF acetaminophen 500 mg Tablet 500 mg PO Q4H MDD 3000mg in 24 hr PRN (Reason: Pain) Qty: 30 0RF bupropion HCl [Wellbutrin SR] 100 mg Tablet Sustained-Release 12 Hr 100 mg PO BID Qty: 60 0RF levothyroxine 100 mcg Tablet 100 mcg PO DAILYBB Qty: 30 0RF benzonatate 100 mg Capsule 100 mg PO TID PRN (Reason: Cough) Qty: 20 0RF metformin 1,000 mg Tablet 1,000 mg PO BID Qty: 60 0RF Rx Instructions: with breakfast and dinner esomeprazole magnesium [Nexium] 40 mg Capsule,Delayed Release(Dr/Ec) 40 mg PO DAILYBB Qty: 30 0RF Rx Instructions: 1 hr before first meal of the day montelukast [Singulair] 10 mg Tablet 10 mg PO HS Qty: 30 0RF furosemide 40 mg tablet 40 mg PO DAILY Qty: 30 1RF fluticasone propionate [Flonase Allergy Relief] 50 mcg/actuation [place],Suspension 2 spray INTRANASAL DAILY Qty: 9.9 0RF Multivitamin 50 Plus Tablet 1 tab PO QAM Qty: 30 0RF cyclobenzaprine 5 mg Tablet 5 mg PO TID PRN (Reason: Pain) Qty: 30 0RF ezetimibe-simvastatin [Vytorin 10-20] 10-20 mg Tablet 1 tab PO DAILY Qty: 30 0RF duloxetine [Cymbalta] 60 mg capsule,delayed release(DR/EC) 60 mg PO DAILY Qty: 30 0RF folic acid 0.8 mg Capsule 0.8 mg PO QAM Qty: 30 0RF cholecalciferol (vitamin D3) [Vitamin D3] 1,000 unit Tablet 1,000 unit PO QAM Qty: 30 0RF magnesium oxide 400 mg magnesium capsule 400 mg PO Q OTHER DAY Qty: 15 0RF Rx Instructions: 400 mg PO every other day; memantine [Namenda XR] 14 mg Capsule,Sprinkle,Er 24hr 14 mg PO QAM Qty: 30 0RF Caltrate 600 plus D 600 mg-20 mcg (800 unit) Tablet,Chewable 1 tab PO BID Qty: 30 0RF fluticasone furoate-vilanterol [Breo Ellipta] 200-25 mcg/dose Blister With Device 1 inh INHALATION DAILY Qty: 60 0RF albuterol sulfate 90 mcg/actuation Aerosol Powdr Breath Activated 2 inh INHALATION Q4H PRN (Reason: SHORT OF BREATH or wheezing ) Qty: 1 0RF Probiotic Acidophilus Biobeads 12.9 mg (2 billion cell) Tablet,Delayed Release (Dr/Ec) 1 tab PO DAILY Qty: 30 0RF Changed vitamin E 400 unit Capsule 268 mg PO HS Qty: 15 0RF pregabalin [Lyrica] 50 mg Capsule 25 mg PO BID Qty: 30 0RF oxycodone 10 mg Tablet 10 mg PO Q6H PRN (Reason: severe incisional pain) Qty: 10 0RF Discontinued lisinopril 40 mg tablet 40 mg PO DAILY Qty: 90 3RF acetaminophen 650 mg Tablet Extended Release 1,300 mg PO [facility] Rx Instructions: Pt states she is not a good source of information due to dementia; SEE previous order that was transferred with patient. ondansetron HCl 4 mg Tablet 4 mg PO Q6H PRN (Reason: NAUSEA/VOMITING) ciprofloxacin HCl [Cipro] 500 mg Tablet 500 mg PO BID Rx Instructions: for 5 days -- last dose 06/20/22 clindamycin HCl 300 mg Capsule 300 mg PO TID Rx Instructions: take 1 capsule in the morning, 1 capsule at noon and 1 capsule at bedtime for 5 days. last dose 06/20/22. Discharge Orders: Discharge Order (Routine); Ordered 06/29/22 Ordered By: Monica Booker/Other Patient Handouts: Nutrition for Wound Healing, Managing Type 2 Diabetes Admission Data Admit Date/Time: 06/18/22 09:39 Attending Provider: John Capellan Admit Provider: Deb Seth Primary Care Provider: Papo Keyes Other Providers: Yogesh Lu ; Fausto Dahl ; Jason Phillips ; Luke Vasquez I. ; Sukhwinder De Souza II ; Stephanie Christie ; Dm Hart ; Yogesh Avalos ; [facility] ; [place] ; Monica Vasquez Other Interventions: Discharge Summary Assessment (RN) Last Done: 06/29/22 12:08 Supervising Physician Co-Signing Physician Notes Attending addendum: Agree with above documentation by Monica Vasquez PA-C. Patient seen and examined independently. Patient is comfortably sitting at the edge of the bed; not in any acute distress. She was looking forward to getting discharged from the hospital. Patient's EKG was reviewed; significant for prolonged QTC(536). Review of the medication was done. Patient's Lyrica dose was decreased to 25 twice daily and metoprolol increased. She was instructed to follow-up with her primary care doctor for repeat EKG in 1 week. Further instruction for wound care provided as well.
[2022-06-29] MEDS: ACETAMINOPHEN 500 MG TAB PO PRN (12:42)
[2022-06-29] MEDS: oxyCODONE HCL IR 5 MG TAB (IMMEDIATE RELEASE) PO PRN (12:46)
--- NOTE | 2022-06-29 21:54 | Electrocardiogram Report ---
Test Reason : Blood Pressure : / mmHG Vent. Rate : 092 BPM Atrial Rate : 092 BPM P-R Int : 178 ms QRS Dur : 090 ms QT Int : 434 ms P-R-T Axes : 067 093 029 degrees QTc Int : 536 ms Normal sinus rhythm Rightward axis Prolonged QT Abnormal ECG When compared with ECG of 28-JUN-2022 05:59, No significant change Confirmed by Endy Cantu ([id number]) on 06/29/2022 9:53:59 PM Referred By: Subha Chacko Confirmed By:Endy Cantu
== END 2022-06-29 13:34 | DRG 871 ==
LOC: 3E 06-18 08:46 → SUATTDRO 06-18 09:39